=== PATIENT | female | born 1965 | race Caucasian/White ===

== ENCOUNTER 2018-07-11 20:24 | Emergency (ER) | payer MEDICARE, SELFPAY ==
[2018-07-11 20:25] VITALS: BP 97/65; PULSE 69; RESP 14; TEMP 36.7; O2SAT 96; BMI 21.2
--- NOTE | 2018-07-11 20:40 | EKG12_ITS ---
Test Reason : CP Blood Pressure : / mmHG Vent. Rate : 076 BPM Atrial Rate : 076 BPM P-R Int : 124 ms QRS Dur : 072 ms QT Int : 398 ms P-R-T Axes : 076 063 064 degrees QTc Int : 447 ms Normal sinus rhythm Normal ECG Confirmed by KEVIN RODRIGUES, RODRIGUEZ ([id number]), research editor OPAL THOMPSON ([id number]) on 07/14/2018 2:21:02 PM Referred By: GIORGIO/ELKIN Confirmed By:RODRIGUEZ BROWN MD
--- NOTE | 2018-07-11 20:41 | ED.RN ---
NO OLD EKGS IN MUSE
--- NOTE | 2018-07-11 20:46 | ED.RN ---
daughter dropped patient and her bag off at the er. she stated the patient was mad at her. gave her phone number for a contact. # is [phone]
[2018-07-11 20:48] VITALS: O2SAT 98
--- NOTE | 2018-07-11 21:00 | RAD_ITS ---
STUDY: X-RAY CHEST REASON FOR EXAM: Female, 52 years old. Chest pain TECHNIQUE: Frontal view of the chest COMPARISON: None. FINDINGS: The lungs are clear. There are no pleural effusions. There is no pneumothorax. The heart is normal in size. The visualized osseous structures are within normal limits. RAD/Chest 1 View (Portable) IMPRESSION: No acute thoracic pathology. Electronically Signed: Nikos Lindquist, at 21:13 EST Tel , Service support ,
[2018-07-11 21:08] VITALS: BP 93/65; PULSE 80; RESP 14; O2SAT 96
--- NOTE | 2018-07-11 22:00 | ED.RN ---
LAB WAS CALLED TO DRAW BLOOD DUE TO UNABLE TO ESTABLISH AN IV. LAB WAS ABLE TO OBTAIN BLOOD SAMPLE.
[2018-07-11 22:18] LABS: Absolute Lymphocyte Count 2.27 X10^3/ul (0.83-4.51); Absolute Neutrophil Count 6.9 X10^3/uL (2.0-7.7); Basophil# 0.03 X10^3/uL; Basophil% 0.3 % (0-1); Eosinophil# 0.23 X10^3/uL; Eosinophils% 2.3 % (0-5); Hematocrit 41.7 % (37-47); Lymphocyte # 2.27 X10^3/ul (4.0); Lymphocyte % 22.8 % (19-41); Mean Corp Hgb Conc 33.6 g/gl (32-36); Mean Corpuscular Hgb 31.4 pg (27.0-32.0); Mean Corpuscular Volume 93.5 fL (81-99); Mean Platelet Vol. 9.3 fl (6.2-12.0); Monocyte# 0.52 X10^3/uL; Monocyte% 5.2 % (0-10); Neutrophil # 6.88 X10^3/uL (2.7-7.7); Neutrophil % 69.2 % (47-70); Platelet Count 231 K/mm3 (150-450); RBC Distribution Width CV 12.5 % (11.6-14.6); RBC Distribution Width SD 42.2 fl (35.1-43.9); Red Blood Count 4.46 M/mm3 (4.2-5.4)
[2018-07-11 22:20] LABS: POSITIVE COUNT NO; POSITIVE DIFFERENTIAL NO; POSITIVE MORPHOLOGY NO
[2018-07-11 22:26] LABS: International Normalized Ratio 1.2; Prothrombin Time (Protime)PT. 15.1 SECONDS (11.7-14.9)
[2018-07-11 22:39] VITALS: PULSE 78; RESP 14; O2SAT 95
[2018-07-11 22:41] LABS: Anion Gap 8 (5-15); BUN 11 mg/dL (7-18); BUN/Creat Ratio 14.8 RATIO (10-20); Calcium,Total 8.6 mg/dL (8.5-10.1); Chloride 104 mmol/L (98-107); Creatinine, Serum 0.74 mg/dL (0.55-1.02); EST Glomerular Filtration Rate 86 mL/min (>60); Est Glom Filt Rate - Afr Amer 105 mL/min (>60); Estimated Creatinine Clearance 75.92 ml/min; Glucose 117 mg/dL (74-106); Potassium 3.6 mmol/L (3.5-5.1); Sodium Level 137 mmol/L (136-145)
--- NOTE | 2018-07-11 22:55 | ED.VISSUMM ---
- ER Visit Summary Date of Service: 07/11/18 Chief Complaint: Left chest wall pain History of Present Illness: The patient is a 52 F who states that one week ago when she woke up she had pain underneath her left breast. The pain is worse with moving and now radiates along the ribs into her back. She states that it is gotten worse. She states that she has decided to move from the [facility] down to the [facility]. She states she is doing so to help her daughter. She tells me that her daughter told her to go to the emergency department tonight and that she did not she would never see her children again. She is on Pradaxa for prior pulmonary embolism. She states that she has not missed any doses of Pradaxa. The patient also reportedly has Percocet at home. She is a smoker. She denies any rashes. No trauma. She reports that her blood pressure is typically in the 90s Physical Examination: Afebrile vital signs are stable Gen: Well-nourished well-developed Head: Normocephalic atraumatic Eyes: Perrl EOMI ENT: TMs clear no rhinorrhea moist mucous membranes Neck: Supple no lymphadenopathy no JVD nontender CVS: Regular rate rhythm no murmurs normal S1-S2 Respiratory: No distress clear to auscultation bilaterally patient has reproducible pain just inferior to the left breast along the ribs into the back. There is no obvious deformity. There is no rashes. Abdomen: Soft nontender nondistended normal bowel sounds no masses Back: Nontender Extremity: Nontender no edema Skin: Normal color no rash Neuro: alert orientated ?3 CN II-XII intact normal strength sensation reflexes gait cerebellar Psych: Normal affect normal mood Test Results: EKG shows a normal sinus rhythm at a rate of 76. CBC chemistries showed glucose 117. Troponin less than 0.015 Emergency Department Course and Treatment: Patient received OxyIR for pain. She will be discharged home with follow-up with her doctor. I suspect that this is chest wall related. Impression: 1. Chest wall pain This note was generated with Lumora[employer] software. It may contain incorrect words, spelling, and punctuation that were not noted in review of the chart prior to signing ED Disposition - Plan for ED Patient: Disposition: Home or Assisted Living Chief Complaint: Syncope Instructions: ED Chest Pain Costochondritis Additional Instructions: Please arrange follow-up with your family doctor.
--- NOTE | 2018-07-11 22:58 | ED.DCSUM_ITS ---
- ER Visit Summary Date of Service: 07/11/18 Chief Complaint: Left chest wall pain History of Present Illness: The patient is a 52 F who states that one week ago when she woke up she had pain underneath her left breast. The pain is worse with moving and now radiates along the ribs into her back. She states that it is gotten worse. She states that she has decided to move from the [facility] down to the [facility]. She states she is doing so to help her daughter. She tells me that her daughter told her to go to the emergency department tonight and that she did not she would never see her children again. She is on Pradaxa for prior pulmonary embolism. She states that she has not missed any doses of Pradaxa. The patient also reportedly has Percocet at home. She is a smoker. She denies any rashes. No trauma. She reports that her blood pressure is typically in the 90s Physical Examination: Afebrile vital signs are stable Gen: Well-nourished well-developed Head: Normocephalic atraumatic Eyes: Perrl EOMI ENT: TMs clear no rhinorrhea moist mucous membranes Neck: Supple no lymphadenopathy no JVD nontender CVS: Regular rate rhythm no murmurs normal S1-S2 Respiratory: No distress clear to auscultation bilaterally patient has reproducible pain just inferior to the left breast along the ribs into the back. There is no obvious deformity. There is no rashes. Abdomen: Soft nontender nondistended normal bowel sounds no masses Back: Nontender Extremity: Nontender no edema Skin: Normal color no rash Neuro: alert orientated ?3 CN II-XII intact normal strength sensation reflexes gait cerebellar Psych: Normal affect normal mood Test Results: EKG shows a normal sinus rhythm at a rate of 76. CBC chemistries showed glucose 117. Troponin less than 0.015 Emergency Department Course and Treatment: Patient received OxyIR for pain. She will be discharged home with follow-up with her doctor. I suspect that this is chest wall related. Impression: 1. Chest wall pain This note was generated with [employer]ation software. It may contain incorrect words, spelling, and punctuation that were not noted in review of the chart prior to signing ED Disposition - Plan for ED Patient: Disposition: Home or Assisted Living Chief Complaint: Syncope Instructions: ED Chest Pain Costochondritis Additional Instructions: Please arrange follow-up with your family doctor.
[2018-07-11] MEDS: oxyCODONE 5 MG Tablet 10 MG PO (23:24)
[2018-07-11 23:30] VITALS: BP 91/56; PULSE 73; RESP 14; O2SAT 96
--- OUTSIDE RECORDS SUMMARY | 2018-09-06 10:29 | XMS RPT_ITS ---
:1965 Author Organization [facility] Care Team Providers Name Role Phone BEST PARKER Attending Unavailable LIZA WOODALL Admitting Unavailable LIZA WOODALL Attending Unavailable AUSTIN PAGE Consulting Unavailable KOBEMANA Admitting Unavailable KOBEMANA CORONADO Attending Unavailable EULALIA VO Attending Unavailable MUSHKAT CONOMY, CINDY H Admitting Unavailable MUSHKAT CONOMY, CINDY H Attending Unavailable CADESKY, RYAN Admitting Unavailable CADESKY, RYAN Attending Unavailable BEST PARKER Attending Unavailable Mykel Boogie Attending Unavailable Primay Care Physicia, No Primary Care Unavailable Primay Care Physicia, No Primary Care Unavailable Mykel Jiménez Attending Unavailable PROVIDER, UNKNOWN Admitting Unavailable PROVIDER, UNKNOWN Attending Unavailable PROVIDER, UNKNOWN Admitting Unavailable JS QUEVEDO Attending Unavailable CONSULT, IP PSYCHIATRIC ADULT Consulting Unavailable PROVIDER, UNKNOWN Admitting Unavailable BRITTANY MARCIAL Attending Unavailable PROVIDER, UNKNOWN Admitting Unavailable PROVIDER, UNKNOWN Attending Unavailable PCP, OTHER Primary Care Unavailable TY DASILVA Attending Unavailable CADESKY, RYAN Attending Unavailable CADESKY, RYAN Attending Unavailable CADESKY, RYAN Attending Unavailable CADESKY, RYAN Attending Unavailable RAYMOND CORNEJO Attending Unavailable CADESKY, RYAN Referring Unavailable CADESKY, RYAN Attending Unavailable MUSHKAT CONOMY, CINDY H Attending Unavailable CADESKY, RYAN Attending Unavailable CADESKY, RYAN Attending Unavailable MELANIE WEBSTER Attending Unavailable ORTIZ, LILO Referring Unavailable YARIELDENAE NARANJO (HR BUSINESS PARTNER CONSULTANT) Referring Unavailable CADESKY, RYAN Attending Unavailable CADESKY, RYAN Attending Unavailable ORTIZ, LILO Attending Unavailable CADESKY, RYAN Referring Unavailable ORTIZ, LILO Referring Unavailable THADDEUS PRUITT (PA) Attending Unavailable ORTIZ, LILO Referring Unavailable CASTELLANOS, AMARI R Admitting Unavailable ORTIZ, LILO Referring Unavailable NEME MERCANTE, DARLEEN Attending Unavailable CASTELLANOS, AMARI R Admitting Unavailable NEME MERCANTE, DARLEEN Attending Unavailable NEME MERCANTE, DARLEEN Referring Unavailable CASTELLANOS, AMARI R Admitting Unavailable CASTELLANOS, AMARI R Attending Unavailable ZEKE BELLO Referring Unavailable Dr. Farooq Bolivar Attending Unavailable *SELF, REFERRED Referring Unavailable Podl, Tod Americo Primary Care Unavailable Podl, Tod Americo Primary Care Unavailable Sugey, Dr. Flakito Goodman Admitting Unavailable Gilsonca, Dr. Flakito Goodman Attending Unavailable Gilsonca, Dr. Flakito Goodman Referring Unavailable Podl, Tod Americo Primary Care Unavailable Bertrand, Dr. Greyson Quezada Admitting Unavailable Bertrand, Dr. Greyson Quezada Attending Unavailable Bertrand, Dr. Greyson Quezada Referring Unavailable PROBLEMS PROBLEMS DATE TYPE CONDITION / CODE ATTENDING STATUS SOURCE 07/03/2018 Active Chronic pain CASTELLANOS, AMARI R [facility] syndrome / [facility] G89.4(ICD-10) Repository 06/05/2015 Active Mental disorder, CASTELLANOS, AMARI R [facility] not otherwise [facility] specified / Repository F99(ICD-10) 07/23/2018 Active Embolism and CASTELLANOS, AMARI R [facility] thrombosis of [facility] unspecified artery Repository / I74.9(ICD-10) 07/23/2018 Active Hypokalemia / CASTELLANOS, AMARI R [facility] E87.6(ICD-10) [facility] Repository 07/22/2018 Admitting Unspecified BROWN, Active [facility] Diagnosis abdominal pain / [facility] R10.9(ICD-10) Repository 07/22/2018 Final Diagnosis Syncope and BROWN, Active [facility] (Discharge) collapse / [facility] R55(ICD-10) Repository 07/22/2018 Final Diagnosis Hypocalcemia / BROWN, Active [facility] (Discharge) E83.51(ICD-10) [facility] Repository 07/22/2018 Final Diagnosis Hypokalemia / BROWN, Active [facility] (Discharge) E87.6(ICD-10) [facility] Repository 07/22/2018 Final Diagnosis Essential (primary) BROWN, Active [facility] (Discharge) hypertension / [facility] I10(ICD-10) Repository 07/22/2018 Final Diagnosis Diarrhea, BROWN, Active [facility] (Discharge) unspecified / [facility] R19.7(ICD-10) Repository 07/22/2018 Final Diagnosis Complex regional BROWN, Active [facility] (Discharge) pain syndrome I, [facility] unspecified / Repository G90.50(ICD-10) 07/22/2018 Final Diagnosis Chronic pain BROWN, Active [facility] (Discharge) syndrome / [facility] G89.4(ICD-10) Repository 07/22/2018 Final Diagnosis Major depressive BROWN, Active [facility] (Discharge) disorder, single [facility] episode, Repository unspecified / F32.9(ICD-10) 07/22/2018 Final Diagnosis Other epilepsy, not BROWN, Active [facility] (Discharge) intractable, [facility] without status Repository epilepticus / G40.802(ICD-10) 07/22/2018 Final Diagnosis Nicotine BROWN, Active [facility] (Discharge) dependence, [facility] cigarettes, Repository uncomplicated / F17.210(ICD-10) 07/22/2018 Final Diagnosis Prsnl hx of TIA BROWN, Active [facility] (Discharge) (TIA), 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[facility] 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 Repository deficits / Z86.73(ICD-10) 07/22/2018 Final Diagnosis Personal history of BROWN, Active [facility] (Discharge) urinary (tract) [facility] infections / Repository Z87.440(ICD-10) 07/22/2018 Final Diagnosis Personal history of BROWN, Active [facility] (Discharge) methicillin resis [facility] staph infection / Repository Z86.14(ICD-10) 07/22/2018 Final Diagnosis Personal history of BROWN, Active [facility] (Discharge) pulmonary embolism [facility] / Z86.711(ICD-10) Repository 07/22/2018 Final Diagnosis [facility] (current) BROWN, Active [facility] (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 of [facility] anticoagulants / Repository Z79.01(ICD-10) 07/22/2018 Final Diagnosis Other nursing home BROWN, Active [facility] (Discharge) (current) drug [facility] therapy / Repository Z79.899(ICD-10) 07/22/2018 Final Diagnosis [facility] (current) BROWN, Active [facility] (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 of opiate [facility] analgesic / Repository Z79.891(ICD-10) 07/22/2018 Final Diagnosis Personal history of BROWN, Active [facility] (Discharge) other diseases of [facility] the digestive Repository system / Z87.19(ICD-10) 07/22/2018 Final Diagnosis Family hx of ischem BROWN, Active [facility] (Discharge) heart dis and oth [facility] dis of the circ sys Repository / Z82.49(ICD-10) 07/22/2018 Final Diagnosis Family history of BROWN, Active [facility] (Discharge) diabetes mellitus / [facility] Z83.3(ICD-10) Repository 07/22/2018 Final Diagnosis Family history of BROWN, Active [facility] (Discharge) malignant neoplasm [facility] of testis / Repository Z80.43(ICD-10) 07/22/2018 Final Diagnosis Family history of BROWN, Active [facility] (Discharge) malignant neoplasm [facility] of kidney / Repository Z80.51(ICD-10) 07/22/2018 Revised Unspecified BROWN, Active [facility] Diagnosis abdominal pain / [facility] R10.9(ICD-10) Repository 06/29/2018 Active Unspecified NEME MERCANTE, Active [facility] convulsions / DARLEEN [facility] R56.9(ICD-10) Repository 05/24/2018 Active Other specified NA Active [facility] symptoms and signs [facility] involving the Repository circulatory and respiratory systems / R09.89(ICD-10) 03/28/[address] Lolita Bertrand [place] disorder, single [facility] episode, Repository unspecified / F32.9(ICD-10) 03/28/2018 Unknown Epilepsy, unsp, not Bertrand, Dr. Lolita Vidal intractable, [facility] without status Repository epilepticus / G40.909(ICD-10) 03/28/2018 Unknown Fibromyalgia / Bertrand, Dr. Mchugh [place] M79.7(ICD-10) [facility] Repository 03/28/2018 Unknown Personal history of Dr. Lolita Bertrand [facility] pulmonary embolism [facility] / Z86.711(ICD-10) Repository 03/28/2018 Unknown Prsnl hx of TIA Dr. Lolita Bertrand [facility] (TIA), and cereb [facility] 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 Repository deficits / Z86.73(ICD-10) 03/28/2018 Unknown Acquired absence of Dr. Lolita Bertrand [place] other specified [facility] parts of digestive Repository tract / Z90.49(ICD-10) 03/28/2018 Unknown Personal history of Dr. Lolita Bertrand [place] other venous [facility] thrombosis and Repository embolism / Z86.718(ICD-10) 03/28/2018 Admitting Syncope and Bertrand, Dr. Mchugh [place] diagnosis collapse / [facility] R55(ICD-10) Repository 03/28/2018 Unknown Syncope and Bertrand, Dr. Lolita Vidal collapse / [facility] R55(ICD-10) Repository 03/28/2018 Unknown Opioid dependence, Dr. Lolita Bertrand [facility] uncomplicated / [facility] F11.20(ICD-10) Repository 03/28/2018 Unknown Complex regional Bertrand, Active [facility] pain syndrome I of [facility] other specified Repository site / G90.59(ICD-10) 03/28/2018 Unknown Dorsalgia, Bertrand, Active [facility] unspecified / [facility] M54.9(ICD-10) Repository 03/28/2018 Unknown Nicotine Bertrand, Active [facility] dependence, [facility] unspecified, Repository uncomplicated / F17.200(ICD-10) 03/28/2018 Unknown Anxiety disorder, Bertrand, Active [facility] unspecified / [facility] F41.9(ICD-10) Repository 03/28/2018 Unknown Chronic obstructive Bertrand, Active [facility] pulmonary disease, [facility] unspecified / Repository J44.9(ICD-10) 03/28/2018 Unknown Unspecified Bertrand, Active [facility] abdominal pain / [facility] R10.9(ICD-10) Repository 03/28/2018 Unknown Diplopia / Bertrand, Active [facility] H53.2(ICD-10) [facility] Repository 03/28/2018 Unknown Unspecified Bertrand, Active [facility] osteoarthritis, [facility] unspecified site / Repository M19.90(ICD-10) 03/28/2018 Unknown Personal history of Bertrand, [facility]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 / Repository Z86.74(ICD-10) 03/28/2018 Unknown Systemic Bertrand, 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, Repository unspecified / M35.9(ICD-10) 09/16/2017 Active Delusional MILK, BEST Active [facility] disorders / ISABELLA [facility] F22(ICD-10) Repository 03/24/2018 Active Unspecified MILK, BEST Active [facility] abdominal pain / ISABELLA Other [facility] R10.9(ICD-10) Repository 03/24/2018 Active Diplopia / MILK, BEST Active [facility] H53.2(ICD-10) ISABELLA Other [facility] Repository 03/24/2018 Active Transient MILK, BEST Active [facility] alteration of ISABELLA Other [facility] awareness / Repository R40.4(ICD-10) 03/24/2018 Active Emphysema, MILK, BEST Active [facility] unspecified / ISABELLA Other [facility] J43.9(ICD-10) Repository 12/28/2017 Admitting Ileus, unspecified Donca, Dr. Lolita Vidal diagnosis / K56.7(ICD-10) [facility] Repository 12/28/2017 Unknown Ileus, unspecified Donca, Dr. 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 Mchugh [place] pulmonary disease w [facility] (acute) Repository exacerbation / J44.1(ICD-10) 12/28/2017 Unknown Other chronic pain Sugey, Dr. Lolita Vidal / G89.29(ICD-10) [facility] Repository 12/28/2017 Unknown Migraine, unsp, not Donca, Dr. Lolita Vidal intractable, [facility] without status Repository migrainosus / G43.909(ICD-10) 12/28/2017 Unknown Post-traumatic Sugey, Dr. Mchugh [place] stress disorder, [facility] unspecified / Repository F43.10(ICD-10) 12/28/2017 Unknown Oth disrd involving Sugey, Dr. Lolita Vidal the immune [facility] mechanism, NEC / Repository D89.89(ICD-10) 12/28/2017 Unknown Hypokalemia / Donca, Active [facility] E87.6(ICD-10) [facility] Repository 12/28/2017 Unknown Other specified Donca, Dr. Mchugh [place] anxiety disorders / [facility] F41.8(ICD-10) Repository 12/28/2017 Unknown Anorexia / Donca, Dr. Lolita Vidal R63.0(ICD-10) [facility] Repository 12/28/2017 Unknown Nicotine Donsuzette, Dr. Lolita Vidal dependence, [facility] cigarettes, Repository uncomplicated / F17.210(ICD-10) 12/28/2017 Unknown Insomnia, Dr. Lolita Mayes unspecified / [facility] G47.00(ICD-10) Repository 12/28/2017 Unknown Adverse effect of Sugey, Dr. Lolita Vidal unspecified [facility] narcotics, initial Repository encounter / T40.605A(ICD-10) 12/28/2017 Unknown Other coma, without Dr. Lolita Mayes [place], or w/part [facility] score, 24+hrs / Repository R40.2444(ICD-10) 12/28/[address] Lolita Mayes disorder, single [facility] episode, in full Repository remission / F32.5(ICD-10) 12/28/2017 Unknown Repeated falls / Sugey, Dr. Lolita Vidal R29.6(ICD-10) [facility] Repository 12/28/2017 Unknown Adverse effect of Dr. Lolita Mayes other synthetic [facility] narcotics, init Repository encntr / T40.4X5A(ICD-10) 12/28/2017 Unknown Adverse effect of Sugey, Dr. Lolita Vidal other opioids, [facility] initial encounter / Repository T40.2X5A(ICD-10) 12/28/2017 Unknown Patient room in Dr. Lolita Mayes hospital as place / [facility] Y92.230(ICD-10) Repository 12/28/[address] Unknown [address] home [address] 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 Lolita Mayes (BMI) 22.0-22.9, [facility] adult / Repository Z68.22(ICD-10) 12/28/2017 Unknown Presence of other Dr. Lolita Mayes vascular implants [facility] and grafts / Repository Z95.828(ICD-10) 12/28/2017 Unknown [address]. 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 Sugey [facility] use of [facility] anticoagulants / Repository Z79.01(ICD-10) 11/23/2017 Active Generalized GILDA, Active [facility] Other [facility] nodes / Repository R59.1(ICD-10) 11/23/2017 Active Insomnia, GILDA, Active [facility] unspecified / [facility] Other [facility] G47.00(ICD-10) Repository 11/18/2017 Active Unknown / KOBE, MANA Active [facility] UNK(Unknown) Other [facility] Repository 11/12/2017 Active Epilepsy, OLASOKAN, Active [facility] unspecified, not OLAPEJU Other [facility] intractable, Repository without status epilepticus / G40.909(ICD-10) 11/12/2017 Active Opioid dependence, OLASOKAN, Active [facility] uncomplicated / OLAPEJU Other [facility] F11.20(ICD-10) Repository 11/12/2017 Active Chronic embolism OLASOKAN, 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 / Repository I82.512(ICD-10) 11/12/2017 Active Other psychoactive OLASOKAN, Active [facility] substance OLAPEJU Other [facility] dependence, Repository uncomplicated / F19.20(ICD-10) 11/12/2017 Active Orthostatic OLASOKAN, Active [facility] hypotension / OLAPEJU Other [facility] I95.1(ICD-10) Repository 11/12/2017 Active Syncope and OLASOKAN, Active [facility] collapse / OLAPEJU Other [facility] R55(ICD-10) Repository 11/12/2017 Active Diarrhea, OLASOKAN, Active [facility] unspecified / OLAPEJU Other [facility] R19.7(ICD-10) Repository 11/12/2017 Active Major depressive OLASOKAN, Active [facility] disorder, OLAPEJU Other [facility] recurrent, moderate Repository / F33.1(ICD-10) 11/12/2017 Active Opioid dependence OLASOKAN, Active [facility] with withdrawal / OLAPEJU Other [facility] F11.23(ICD-10) Repository 10/11/2017 Active Other chronic pain Unknown Active [facility] / G89.29(ICD-10) System Repository 09/05/2017 Active Other symptoms and MILKBEST Active [facility] signs involving ISABELLA Other [facility] emotional state / Repository R45.89(ICD-10) 09/05/2017 Active Poisoning by MILK, BEST Active [facility] unspecified drugs, ISABELLA Other [facility] medicaments and Repository biological substances, undetermined, initial encounter / T50.904A(ICD-10) PROCEDURES PROCEDURES DATE CODE DESCRIPTION STATUS SOURCE 11/10/2017 09472(C4) TOXICOLOGY SCREEN, Completed [facility] UNCONFIRMED System Repository 11/10/2017 94008(C4) EKG 12 LEAD - Completed [facility] PERFORM System Repository 11/09/2017 26000(C4) BASIC METABOLIC Completed [facility] PANEL System Repository 11/09/2017 40072(C4) MAGNESIUM Completed [facility] Repository 11/09/2017 07083(C4) COMPLETE BLOOD COUNT Completed [facility] Repository 11/09/2017 58490(C4) URINALYSIS COMP Completed [facility] System Repository 11/09/2017 98549(C4) TOXICOLOGY SCREEN, Completed [facility] UNCONFIRMED System Repository 11/09/2017 84584(C4) HCG URINE Completed [facility] Repository 11/09/2017 28919(C4) ETHANOL, SERUM Completed [facility] Repository 11/09/2017 960253104(C4) URINALYSIS - Completed [facility] CHEMISTRY System Repository ([facility]) 11/09/2017 FKQ662(C4) PROVIDE CONSTANT Completed [facility] SUPERVISION PSYCH System Repository 11/09/2017 ORUDQ198(C4) IP PSYCHIATRIC ADULT Completed [facility] CONSULT System Repository 11/09/2017 OGY866(C4) RECHECK VITAL SIGNS Completed [facility] Repository 11/09/2017 76612(C4) EXTRA URINE Completed [facility] Repository 10/11/2017 ED103(C4) DISCHARGE PATIENT Completed [facility] Repository RESULTS RESULTS PROGRESS Observed: 07/28/2018 Status: COMPLETED Source: [place] 9:55 AM [facility] [place] REPOSITORY HNO ID: [id number] Author: Steven Haro Pharmd Service: (none) Author Type: Pharmacist Type: Progress Notes Filed: 07/28/2018 9:57 AM Note Text: TRANSITION CARE MANAGEMENT (TCM) PHARMACY FOLLOW-UP Provider Action/FYI: ? Attempt made to contact pt's daughter, Lindsey, on listed cell phone. Message on cell stated unable to take call at this time. Follow up call with patient post discharge, unable to reach pt's daughter (Lindsey). See post-discharge summary from contact on 07/27/18. Medication List Medication Directions Comments Action/Plan Cetirizine (ZYRTEC) 10 mg cap Take 1 capsule by mouth once daily. clonazePAM (KLONOPIN) 0.5 mg tablet Take 1 tablet by mouth three times daily as needed for up to 90 days. Discontinued: 07/23/2018 9:36 AM dabigatran etexilate (PRADAXA) 150 mg cap Take 1 capsule by mouth twice daily. dabigatran etexilate (PRADAXA) 150 mg cap Take 1 capsule by mouth twice daily. dicyclomine (BENTYL) 20 mg tablet Take 1 tablet by mouth four times daily. Patient not taking: Reported on 07/27/2018 ergocalciferol, vitamin D2, (DRISDOL) 50,000 unit capsule Take 1 capsule by mouth every Tuesday. Indications: VITAMIN D DEFICIENCY fluticasone-salmeterol (ADVAIR DISKUS) 500-50 mcg/dose dsdv Inhale 1 Puff as instructed twice daily. RINSE AND GARGLE MOUTH WITH WATER AFTER EACH USE. gabapentin (NEURONTIN) 300 mg capsule take 3 capsules by mouth three times a day Discontinued: 07/27/2018 9:33 AM Discontinued: 07/26/2018 9:13 AM lacosamide (VIMPAT) 100 mg tab Take 1 tablet by mouth twice daily for 30 days. Discontinued: 07/23/2018 9:45 AM loperamide (IMODIUM) 2 mg cap(s) Take 1 capsule by mouth as needed for Diarrhea. omeprazole (PRILOSEC) 20 mg capsule Take 1 capsule by mouth once daily. oxyCODONE-acetaminophen (PERCOCET) 5-325 mg tablet 1 po q4h prn breakthrough pain (MAXIMUM 5 pills/day) Earliest Fill Date: 08/04/18 oxyCODONE-acetaminophen (PERCOCET) 5-325 mg tablet Take 1 tablet by mouth every 6 hours as needed for Pain for up to 10 doses. Earliest Fill Date: 07/26/18 Discontinued: 07/27/2018 6:42 PM potassium chloride 20 mEq TbER Take 1 tablet by mouth every Tuesday,Tuesday,Tuesday. promethazine (PHENERGAN) 25 mg tablet Take 1 tablet by mouth every 8 hours as needed. spironolactone (ALDACTONE) 25 mg tablet Take 1 tablet by mouth once daily as needed. Takes as needed venlafaxine ER (EFFEXOR XR) 150 mg 24 hr capsule Take 2 capsules by mouth once daily. venlafaxine ER (EFFEXOR XR) 150 mg 24 hr capsule Take 2 capsules by mouth once daily. Follow Up Plan: Will follow up in 1-2 weeks Appointments for Next 60 Days Date Time Provider Location Dept Phone 08/09/2018 11:00 AM RYAN CASTANO [facility] [phone] 08/23/2018 1:30 PM REGISTRATION CINDY Iyer/Shon Haines [phone] 08/23/2018 1:45 PM RAGINI GUY/Shon Haines [phone] 08/28/2018 11:30 AM [id number] MAIN CARD Shireen Venecia [phone] 08/28/2018 12:00 PM [facility]SE [facility] Shireen HAINES [phone] 08/28/2018 12:30 PM ARIE MOREL CARD [facility] [phone] 08/28/2018 4:20 PM RYAN CASTANO [facility] [phone] Time spent on patient: 10-20 minutes Steevn Haro PharmD July 28, 2018 9:56 AM RAQUEL Observed: 07/28/2018 Status: COMPLETED Source: [place] 12:00 AM [facility] REPOSITORY Patient Outreach (PHRXRF) EDGARDO DENSON ([id number]) 1965 F Date Time Provider Department 07/28/18 STEVEN HARO PHARMD During your visit today, we recorded the following information about you: Steven Haro, PharmD 07/28/2018 9:57 AM Signed TRANSITION CARE MANAGEMENT (TCM) PHARMACY FOLLOW-UP Provider Action/FYI: ? Attempt made to contact pt's daughter, Lindsey, on listed cell phone. Message on cell stated unable to take call at this time. Follow up call with patient post discharge, unable to reach pt's daughter (Lindsey). See post-discharge summary from contact on 07/27/18. Medication List Medication Directions Comments Action/Plan Cetirizine (ZYRTEC) 10 mg cap Take 1 capsule by mouth once daily. clonazePAM (KLONOPIN) 0.5 mg tablet Take 1 tablet by mouth three times daily as needed for up to 90 days. Discontinued: 07/23/2018 9:36 AM dabigatran etexilate (PRADAXA) 150 mg cap Take 1 capsule by mouth twice daily. dabigatran etexilate (PRADAXA) 150 mg cap Take 1 capsule by mouth twice daily. dicyclomine (BENTYL) 20 mg tablet Take 1 tablet by mouth four times daily. Patient not taking: Reported on 07/27/2018 ergocalciferol, vitamin D2, (DRISDOL) 50,000 unit capsule Take 1 capsule by mouth every Tuesday. Indications: VITAMIN D DEFICIENCY fluticasone-salmeterol (ADVAIR DISKUS) 500-50 mcg/dose dsdv Inhale 1 Puff as instructed twice daily. RINSE AND GARGLE MOUTH WITH WATER AFTER EACH USE. gabapentin (NEURONTIN) 300 mg capsule take 3 capsules by mouth three times a day Discontinued: 07/27/2018 9:33 AM Discontinued: 07/26/2018 9:13 AM lacosamide (VIMPAT) 100 mg tab Take 1 tablet by mouth twice daily for 30 days. Discontinued: 07/23/2018 9:45 AM loperamide (IMODIUM) 2 mg cap(s) Take 1 capsule by mouth as needed for Diarrhea. omeprazole (PRILOSEC) 20 mg capsule Take 1 capsule by mouth once daily. oxyCODONE-acetaminophen (PERCOCET) 5-325 mg tablet 1 po q4h prn breakthrough pain (MAXIMUM 5 pills/day) Earliest Fill Date: 08/04/18 oxyCODONE-acetaminophen (PERCOCET) 5-325 mg tablet Take 1 tablet by mouth every 6 hours as needed for Pain for up to 10 doses. Earliest Fill Date: 07/26/18 Discontinued: 07/27/2018 6:42 PM potassium chloride 20 mEq TbER Take 1 tablet by mouth every Tuesday,Tuesday,Tuesday. promethazine (PHENERGAN) 25 mg tablet Take 1 tablet by mouth every 8 hours as needed. spironolactone (ALDACTONE) 25 mg tablet Take 1 tablet by mouth once daily as needed. Takes as needed venlafaxine ER (EFFEXOR XR) 150 mg 24 hr capsule Take 2 capsules by mouth once daily. venlafaxine ER (EFFEXOR XR) 150 mg 24 hr capsule Take 2 capsules by mouth once daily. Follow Up Plan: Will follow up in 1-2 weeks Appointments for Next 60 Days Date Time Provider Location Dept Phone 08/09/2018 11:00 AM RYAN CASTANO [facility] [phone] 08/23/2018 1:30 PM REGISTRATION VASM J/S [facility] [phone] 08/23/2018 1:45 PM RAGINI GUY VASM J/S [facility] [phone] 08/28/2018 11:30 AM [id number] MAIN CARD J [facility] [phone] 08/28/2018 12:00 PM SYNCOPE OPD NURSE CARD Shireen [facility] [phone] 08/28/2018 12:30 PM ARIE MOREL CARD J [facility] [phone] 08/28/2018 4:20 PM RYAN CASTANO [facility] [phone] Time spent on patient: 10-20 minutes Steven Haro, Vaughn July 28, 2018 9:56 AM Allergies As of Date: 07/28/2018 Noted Allergy Reaction CELLACEFATE 01/07/2006 7 - Swelling DEPAKOTE (DIVALPROEX SODIUM) 01/07/2006 8 - GI Upset DILANTIN (PHENYTOIN SODIUM EXTEND*06/03/2015 8 - GI Upset DIVALPROEX 14 - Other: See Comments Comments: Abdominal pain FISH CONTAINING PRODUCTS 05/13/2015 16 - Unknown PENICILLIN 7 - Swelling PENICILLIN G 01/07/2006 8 - GI Upset Comments: tolerates zosyn . sdm. 03/2007 TOLERATES KEFLEX 3-31-11 SHRIMP 05/13/2015 16 - Unknown SULFA (SULFONAMIDE ANTIBIOTICS) 05/17/2007 8 - GI Upset Comments: Gastritis SULFAMETHOXAZOLE-TRIMETHOPRIM 16 - Unknown TOPAMAX (TOPIRAMATE) 05/21/2009 1 - Mental Status Change HALDOL (HALOPERIDOL) 02/03/2008 1 - Mental Status Change 3 - Cough 8 - GI Upset 9 - Itching Date Reviewed: 07/26/2018 Reviewed by: Marielena OliverosRn) ABIODUN Mcnair - Fully Assessed Reason for Visit: Transition Of Care [4074] Cmt: Pharmacy TCM Follow-Up Prescriptions as of 07/28/2018 Sig: CETIRIZINE 10 MG CAPSULE Take 1 capsule by mouth once * CLONAZEPAM 0.5 MG TABLET Take 1 tablet by mouth three * DABIGATRAN ETEXILATE 150 MG C* Take 1 capsule by mouth twice* DABIGATRAN ETEXILATE 150 MG C* Take 1 capsule by mouth twice* DICYCLOMINE 20 MG TABLET Take 1 tablet by mouth four t* Patient not taking: Reported on 07/27/2018 ERGOCALCIFEROL (VITAMIN D2) 5* Take 1 capsule by mouth every* FLUTICASONE 500 MCG-SALMETERO* Inhale 1 Puff as instructed t* GABAPENTIN 300 MG CAPSULE take 3 capsules by mouth thre* LACOSAMIDE 100 MG TABLET Take 1 tablet by mouth twice * LOPERAMIDE 2 MG CAPSULE Take 1 capsule by mouth as ne* OMEPRAZOLE 20 MG CAPSULE,VENESSA* Take 1 capsule by mouth once * OXYCODONE-ACETAMINOPHEN 5 MG-* 1 po q4h prn breakthrough anthony* OXYCODONE-ACETAMINOPHEN 5 MG-* Take 1 tablet by mouth every * POTASSIUM CHLORIDE ER 20 MEQ * Take 1 tablet by mouth every * PROMETHAZINE 25 MG TABLET Take 1 tablet by mouth every * SPIRONOLACTONE 25 MG TABLET Take 1 tablet by mouth once d* VENLAFAXINE ER 150 MG CAPSULE* Take 2 capsules by mouth once* VENLAFAXINE ER 150 MG CAPSULE* Take 2 capsules by mouth once* Problem List As Of Date 07/28/2018 Noted Resolved Cellulitis and abscess of leg, except foot [L03*INVALID FOR*02/25/2017 Methicillin susceptible Staphylococcus aureus i*INVALID FOR*02/25/2017 Pseudomonas infection in conditions classified *INVALID FOR*02/25/2017 Edema [R60.9] INVALID FOR*08/31/2017 Reflex sympathetic dystrophy of lower limb [G90*INVALID FOR* Psoas muscle abscess (HCC) [K68.12] INVALID FOR*02/25/2017 More... Candidiasis of unspecified site [B37.9] INVALID FOR*08/31/2017 More... Other streptococcus infection in conditions cla*INVALID FOR*02/25/2017 More... Bacteremia [R78.81] INVALID FOR*02/25/2017 Other lymphedema [I89.0] INVALID FOR*02/25/2017 Chronic pain syndrome [G89.4] INVALID FOR* Opioid type dependence, continuous (HCC) [F11.2*INVALID FOR* Tobacco use disorder [F17.200] Other convulsions [R56.9] INVALID FOR*02/25/2017 Sleep Hypovent Oth Dis [G47.36] INVALID FOR* HYPOPOTASSEMIA [E87.6] INVALID FOR*02/28/2009 VENA CAVA THROMBOSIS [I82.220] INVALID FOR* Anemia, unspecified [D64.9] INVALID FOR*10/31/2017 Embolism and thrombosis (HCC) [I74.9] INVALID FOR*02/25/2017 More... 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 Left leg pain [M79.605] INVALID FOR*02/25/2017 Muscle spasm [M62.838] INVALID FOR* Leg pain [M79.606] INVALID FOR*02/25/2017 Depression, reactive [F32.9] 02/25/2017 More... Iron defic anemia NEC INVALID FOR*10/31/2017 Agitation [R45.1] INVALID FOR*02/25/2017 Other chronic pain [G89.29] INVALID FOR*12/03/2017 More... Altered mental status [R41.82] INVALID FOR*05/19/2016 Chemical dependency (HCC) [F19.20] INVALID FOR* SUMMARY INVALID FOR*02/25/2017 More... Left arm weakness [R29.898] INVALID FOR* More... Chest pain [R07.9] INVALID FOR*10/31/2017 More... Cellulitis [L03.90] INVALID FOR*02/25/2017 More... Depression [F32.9] INVALID FOR* More... Lethargy [R53.83] INVALID FOR* More... Seizure disorder (HCC) [G40.909] INVALID FOR*11/12/2017 More... Low BP [I95.9] INVALID FOR*08/31/2017 More... DJD (degenerative joint disease), cervical [M47* Anxiety state, unspecified [F41.1] 04/22/2014 Pain [R52] INVALID FOR*08/31/2017 More... Fever [R50.9] INVALID FOR*02/25/2017 More... Delirium [R41.0] INVALID FOR*02/25/2017 More... Hematemesis [K92.0] INVALID FOR*02/25/2017 More... Emphysema of lung (HCC) [J43.9] INVALID FOR* Smoker [F17.200] INVALID FOR*02/25/2017 Chronic deep vein thrombosis of left femoral ve*INVALID FOR* Vitamin D deficiency [E55.9] INVALID FOR* Psychosis [F29] INVALID FOR* GERD (gastroesophageal reflux disease) [K21.9] INVALID FOR* Asthma [J45.909] INVALID FOR* Orthostatic hypotension [I95.1] INVALID FOR*08/31/2017 More... Psychiatric disorder [F99] INVALID FOR* More... DVT (deep venous thrombosis) (HCC) [I82.409] INVALID FOR*02/25/2017 [facility] current use of anticoagulant [Z79.01] INVALID FOR*02/25/2017 More... 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 Syncope [R55] INVALID FOR*08/31/2017 Intentional fentanyl overdose (HCC) [T40.4X2A] INVALID FOR*08/31/2017 Nausea [R11.0] INVALID FOR* Delusional disorder (HCC) [F22] INVALID FOR* More... 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 Chest pain, pleuritic [R07.81] INVALID FOR* Syncope [R55] INVALID FOR* Encounter Status:Closed by ALVARO (PHARMACIST)STEVEN on 07/28/18 PROGRESS Observed: 07/27/2018 Status: COMPLETED Source: [place] 9:59 AM [facility] REPOSITORY HNO ID: [id number] Author: Lorraine (Rn) ABIODUN Cervantes Service: (none) Author Type: Registered Nurse Type: Progress Notes Filed: 07/27/2018 10:55 AM Note Text: TRANSITION CARE MANAGEMENT (TCM) INITIAL CONTACT Provider Action/FYI: Transitions of Care Critical Issues: None LABS AND PROCEDURES PENDING AT DISCHARGE: Final EEG report Vascular, CARD, Psych F/U Initial contact with patient post discharge, spoke to dtrLindsey Patient identified by name and . TRANSITION CARE MANAGEMENT: Date of Outreach: 07/27/2018 Outreach Attempt 1: Contact Made Date of Discharge 07/26/2018 Some recent data might be hidden SUMMARY: -Pt discharged from [facility] on 07/26 -Follow up appointment on 08/09- Pharmacist to confirm. -Medication review done- changed meds only.See pharmacy outreach -Admitted for: Syncope/ convulsions CONCERNS: Spoke with daughter- per pt permission. Dtr. reports receiving conflicting information from [facility] as to whether they would refill Percocet Rx without authorization from prescribing provider because there was not a note to indicate that med could be refilled early. Plans to p/u printed RX from [facility] and take to [facility] pharmacy. Encourage to call [facility] to see if there would be any issues ahead of time- agreed. Reports there are no other issues with obtaining Vimpat, Effexor, or Pradaxa. Denies seizure or syncope episodes since discharge. Verbalized understanding of f/u with Vascular and CARD syncope clinic. Plans f/u with Dr. Partida- Psych and her pain management MD as well. Reports she has/ understands instructions per discharge- declines further review Notified that [facility] pharmacist would be calling and f/u on Percocet issue. Denies further concerns or questions at this. Updated medication concern with TCM pharmacist- will address at the initial call. Phamacist will confirm TCM appt as well. NEW MEDICATIONS: * dabigatran etexilate 150 mg Cap Commonly known as: PRADAXA Take 1 capsule by mouth twice daily. * dabigatran etexilate 150 mg Cap Commonly known as: PRADAXA Take 1 capsule by mouth twice daily. * lacosamide 100 mg Tab Commonly known as: VIMPAT Take 1 tablet by mouth twice daily for 30 days. * lacosamide 100 mg Tab Commonly known as: VIMPAT Take 1 tablet by mouth twice daily for 30 ays. * oxyCODONE-acetaminophen 5-325 mg tablet Commonly known as: PERCOCET Take 1 tablet by mouth every 6 hours as needed for Pain for up to 10 doses. Earliest Fill Date: 07/26/18 MEDS HELD/DISCONTINUED: none BRIEF HOSPITAL COURSE: Hospital Course: This is a 52 year old right-handed female who was admitted due to her abnormal K. K was checked and was 3.3 and repleted. Past medical history includes migraines, remote history of PE in 2006 and 3 ischemic strokes, chronic pain in bones (PCP Dr. 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 She describes grand mal seizures that began in 1999 and have occurred with unclear frequency, last episode unknown. She also reports episodes of going out in which she loses awareness without warning, is unresponsive for 45 min- 1 hr, then awakes with confusion. But pt cannot specify the frequency of these episodes. She estimates frequency to be >1 per week. Also describes passing out occasionally which improved with Vimpat. ? Home AEDS: KLP 0.5 TID (uses prn muscle spasm) LCM 100 BID GBP 900 TID (uses for neuralgia) ?Patient re-mentioned having those episodes of passing out without warning as described above and last episode was day before admission. She was recently admitted to EMU for these episodes and discharged on 07/11/18. 3 events recorded during that admission, and no EEG changes were recorded during the episode, patient was diagnosed with PNES. ? The patient was monitored again with continous video-EEG from 07/23/2018 to 07/26/2018 0 typical events were recorded, although EEG is normal, indicate those events are most likely not due to epilepsy. Her vimpat is continued because we don't have good explanation of the episodes and the episodes improves with vimpat. Please see separate video-EEG report for details. MRI brain and MRA and MRV brain were done to rule out any lesions causing those passing out episodes. 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 During the hospital stay, her K was found to be low at 3.3 and was repleted to 4.1. She is continued on her home med potassium pills. She had questions about her IVC filter, when is good to remove, and she is scheduled to see vascular medicine on 08/23 to address this questions. ? Cardiology was consulted during hospital stay, who recommend her to follow up as outpatient. Appointment was scheduled for her on 08/28 with EKG then syncope clinic visit. Tilt table and QSART are also ordered for her to complete as outpatient. ? At the time of discharge, patient claimed that she does not have access to her medications, they are locked up in the storage box while she was admitted to EMU. After confirmation with pharmacy regarding her refill, she claimed her daughter took her percocet and she does not have access and she was given 10 pills of percocet to go home with and other medications including blood thinner and vimpat. See above staff note for detail regarding this conversation. ? Transitions of Care Critical Issues: None LABS AND PROCEDURES PENDING AT DISCHARGE: Final EEG report ? - Lorraine Cervantes RN, [facility] [phone] PROGRESS Observed: 07/27/2018 Status: COMPLETED Source: [place] 9:13 AM [facility] REPOSITORY HNO ID: [id number] Author: Steven Haro Pharmd Service: (none) Author Type: Pharmacist Type: Progress Notes Filed: 07/27/2018 11:23 AM Note Text: TRANSITION CARE MANAGEMENT (TCM) PHARMACY CONTACT Provider Action/FYI: - Pt's daughter to obtain hard copy Rx for Percocet and fill at [facility] pharmacy on 07/27. See note below in blue text for details regarding this medication from inpt providers. - Rx refill request sent to for Klor-Con to Kimber Guzman). - TCM Medication Reconciliation completed for patient. See medication list table below for details. Initial contact with patient post discharge, spoke to patient and family member, daughter Lindsey,. Patient identified by name and . Summary: -Pt discharged from [facility] on 07/26/18. -Follow up appointment on - Pt requests f/u appt on 08/09/18. -Medication review done Yes. -Admitted for Convulsions Patient was contacted by telephone, identified for pharmacist care from discharge call list, and gave consent to manage medications related to transitional care management pursuant to the consult agreement with the [facility]. Patient Concerns: Spoke with pt and daughter Lindsey. Lindsey was able to review pt's medications (with assistance from pt). Lindsey confirms that they were unable to fill bridge supply of Percocet at local pharmacy. Pharmacist on duty on 12 PM wanted to check with prescriber before filling and pharmacist in the AM of 07/27 refused to fill (did not attempt to call prescriber). Lindsey plans to order picker the hard copy Rx and get filled at [facility] pharmacy today, 07/27. [facility] pharmacy will have access to [employer] and will be able to see inpt notes from discharging provider. Below is listed synopsis from discharge summary regarding bridge supply of Percocet. Per discharge summary dated 07/26/18: ? PDMP was checked (below) followed by call to the pharmacy. They confirmed that her Percocet was filled on 07/06/18 (while she ws in- patient in EMU) and Klonopin was filled on 07/15/18. They also confirmed past issues that patient has had with controlled substance, ? Patient was refusing to be discharged if not given Klonopin and Percocet refill. When confronted with the PDMP and pharamacy information, patient reported that her Percocet was refilled in her absence by her daughter (which is now in storage) and then she remembered that she does actually have Klonopin at home, which she refilled after EMU discharge. ? She reports that she has a prescription for Percocet refill for 08/05/18/. She has been taking 2-3 Percocet tablets as needed while in- patient. We will give her 10 tablets without refill to bridge her over till the next due refill. ? Patient showed good understanding of above and agreed with the plan. History of Present Illness: The following content has been copied and pasted from patient's discharge summary. Hospital Course: This is a 52 year old right-handed female who was admitted due to her abnormal K. K was checked and was 3.3 and repleted. Past medical history includes migraines, remote history of PE in 2006 and 3 ischemic strokes, chronic pain in bones (PCP Dr. 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 She describes grand mal seizures that began in 1999 and have occurred with unclear frequency, last episode unknown. She also reports episodes of going out in which she loses awareness without warning, is unresponsive for 45 min- 1 hr, then awakes with confusion. But pt cannot specify the frequency of these episodes. She estimates frequency to be >1 per week. Also describes passing out occasionally which improved with Vimpat. ? Home AEDS: KLP 0.5 TID (uses prn muscle spasm) LCM 100 BID GBP 900 TID (uses for neuralgia) ?Patient re-mentioned having those episodes of passing out without warning as described above and last episode was day before admission. She was recently admitted to EMU for these episodes and discharged on 07/11/18. 3 events recorded during that admission, and no EEG changes were recorded during the episode, patient was diagnosed with PNES. ? The patient was monitored again with continous video-EEG from 07/23/2018 to 07/26/2018 0 typical events were recorded, although EEG is normal, indicate those events are most likely not due to epilepsy. Her vimpat is continued because we don't have good explanation of the episodes and the episodes improves with vimpat. Please see separate video-EEG report for details. MRI brain and MRA and MRV brain were done to rule out any lesions causing those passing out episodes. 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 During the hospital stay, her K was found to be low at 3.3 and was repleted to 4.1. She is continued on her home med potassium pills. She had questions about her IVC filter, when is good to remove, and she is scheduled to see vascular medicine on 08/23 to address this questions. ? Cardiology was consulted during hospital stay, who recommend her to follow up as outpatient. Appointment was scheduled for her on 08/28 with EKG then syncope clinic visit. Tilt table and QSART are also ordered for her to complete as outpatient. ? At the time of discharge, patient claimed that she does not have access to her medications, they are locked up in the storage box while she was admitted to EMU. After confirmation with pharmacy regarding her refill, she claimed her daughter took her percocet and she does not have access and she was given 10 pills of percocet to go home with and other medications including blood thinner and vimpat. See above staff note for detail regarding this conversation. PAST MEDICAL HISTORY Diagnosis Date - Asthma - Cellulitis and abscess of leg, except foot 03/01/2007 Orig Leg issue 1996 - Chronic pain syndrome 05/27/2008 Post-herpetic Neuralgia - Depression, reactive - DJD (degenerative joint disease), cervical - Esophageal reflux Hemorrhagic gastritis / hx GI - Headache - Muscle spasm BZD - Other convulsions 02/25/2009 - PE (pulmonary embolism) 07/2006 - PMH - PAST MEDICAL HISTORY OF 07/19/2005 h/o right leg DVT, PE, s/p IVC filter - PMH - PAST MEDICAL HISTORY OF 2005 h/o Osteomyelitis infection - Sleep disturbance, unspecified sleep study 12/21 didn't show sleep apnea but some central apneas - Syncope Dr. 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 Social History Substance Use Topics - Smoking status: Current Every Day Smoker Packs/day: 0.50 Years: 12.00 Types: Cigarettes - Smokeless tobacco: Never Used Comment: Currently smokes two cigarettes a day - Alcohol use No Immunization History Administered Date(s) Administered H1N1 Influenza 06/27/2009 Influenza Seasonal Inj Age 3+ 10/15/2013 Influenza Seasonal Inj Quadrivalent 05/17/2016 Influenza Seasonal Inj Quadrivalent Age 3+ 05/25/2018 Influenza Seasonal Inj Quadrivalent Age 3+ Pres Free 05/14/2015 05/17/2016 Influenza Vaccine, Split-Non Spec 07/15/2007 06/06/2009 Pneumovax 08/15/2003 04/06/2013 Tdap (Age 7+) 07/04/2009 Deferred Date(s) Deferred Influenza Vaccine, Split-Non Spec 09/11/2013 Last 3 Encounter BP Readings: Date: BP: 07/22/2018 94/60 06/29/2018 117/81 06/12/2018 91/69 eGFR (no units) Date Value 12/06/2012 >60 eGFR-All Other Races (.) Date Value 07/25/2018 >60 eGFR- (no units) Date Value 07/25/2018 >60 Estimated Creatinine Clearance: 80.3 mL/min (based on SCr of 0.7 mg/dL). ALLERGIES Allergen Reactions - Cellacefate Swelling - Depakote [Divalproe* GI Upset - Dilantin [Phenytoin* GI Upset - Divalproex Other: See Comments Abdominal pain - Fish Containing Pro* Unknown - Penicillin Swelling - Penicillin G GI Upset tolerates zosyn . sdm. 03/2007 TOLERATES KEFLEX 11-12-10 - Shrimp Unknown - Sulfa (Sulfonamide * GI Upset Gastritis - Sulfamethoxazole-Tr* Unknown - Topamax [Topiramate] Mental Status Change - Haldol [Haloperidol] Mental Status Change, Cough, GI Upset, Itching Preferred pharmacy: e- [id number] [place] [address] - [address] [facility] [phone] [facility] [address] e- [id number] [place] [address] [address] [facility] [phone] [facility] [address] e- [id number] [facility] [place] [id number] - [address] - [phone] [id number] [facility] e- [id number] [place] [address] - [address] [facility] - [phone] [facility] [address] e- [id number] [place] [address] - [address] - [phone] [facility] [address] e- [facility] [place] [address] - [address] [facility] - [phone] [facility] [address] e- [id number] [place] [address] [address] - [phone] [facility] [phone] [facility] [address] e- [facility] [address] - [place]NAL [place] [address] [address] [facility] [phone] [address] [facility] [address] Medication Reconciliation: Legend: Stopped, New, Changed, Added to list Medication List Medication Directions Comments Action/Plan Cetirizine (ZYRTEC) 10 mg cap Take by mouth once daily. Review SIG, Take 1 tablet daily Updated as Hist Med clonazePAM (KLONOPIN) 0.5 mg tablet Take 1 tablet by mouth three times daily as needed for up to 90 days. Discontinued: 07/23/2018 9:36 AM Removed RESIDENT CARE COORDINATOR dabigatran etexilate (PRADAXA) 150 mg cap Take 1 capsule by mouth twice daily. New Rx issued, Bedside delivery, Pt has filled and is taking as prescribed. dabigatran etexilate (PRADAXA) 150 mg cap Take 1 capsule by mouth twice daily. dicyclomine (BENTYL) 20 mg tablet Take 1 tablet by mouth four times daily. Pt is not taking Marked as pt not taking ergocalciferol, vitamin D2, (DRISDOL) 50,000 unit capsule Take 1 capsule by mouth every Tuesday. Indications: VITAMIN D DEFICIENCY Future Vit D level is ordered for repeat, Pt is taking Component Latest Ref Rng AND Units 11/26/2013 Vitamin D 25 Hydroxy 31.0 - 80.0 ng/mL 9.9 (L) fluticasone-salmeterol (ADVAIR DISKUS) 500-50 mcg/dose dsdv Inhale 1 Puff as instructed twice daily. RINSE AND GARGLE MOUTH WITH WATER AFTER EACH USE. gabapentin (NEURONTIN) 300 mg capsule take 3 capsules by mouth three times a day lacosamide (VIMPAT) 100 mg tab Take 1 tablet by mouth twice daily for 30 days. Print Rx, Pt will get filled at pharmacy today, 07/27. lacosamide (VIMPAT) 100 mg tab Take 1 tablet by mouth twice daily for 30 days. Duplicate Removed Discontinued: 07/23/2018 9:45 AM Removed RESIDENT CARE COORDINATOR loperamide (IMODIUM) 2 mg cap(s) Take 1 capsule by mouth as needed for Diarrhea. omeprazole (PRILOSEC) 20 mg capsule Take 1 capsule by mouth once daily. oxyCODONE-acetaminophen (PERCOCET) 5-325 mg tablet 1 po q4h prn breakthrough pain (MAXIMUM 5 pills/day) Earliest Fill Date: 08/04/18 Print Rx This percocet Rx has an earliest fill date of 08/04/18 oxyCODONE-acetaminophen (PERCOCET) 5-325 mg tablet Take 1 tablet by mouth every 6 hours as needed for Pain for up to 10 doses. Earliest Fill Date: 07/26/18 Print Rx This Percocet Rx was given on discharge, earliest fill date of 07/26/18 Pt was unable to get filled at local pharmacy, will order picker hard copy Rx and attempt to fill at [place] pharmacy Pt and dtr will order picker hard copy today and get filled in [place] potassium chloride 20 mEq TbER Take 1 tablet by mouth every Tuesday,Tuesday,Tuesday. Refill needed Last filled 03/04/18 for 3 month supply on reconcile dispense Refill requested to [facility] promethazine (PHENERGAN) 25 mg tablet Take 1 tablet by mouth every 8 hours as needed. spironolactone (ALDACTONE) 25 mg tablet Take 1 tablet by mouth once daily as needed. Takes as needed Using PRN only, doesn't need a refill Last filled 03/04/18 for 1 month supply on reconcile dispense venlafaxine ER (EFFEXOR XR) 150 mg 24 hr capsule Take 2 capsules by mouth once daily. venlafaxine ER (EFFEXOR XR) 150 mg 24 hr capsule Take 2 capsules by mouth once daily. This Rx was given on discharge, Bedside delivery, Pt has filled and is taking as prescribed. Additional follow up: ? PCP 08/09/18, PharmD f/u in 1-2 weeks Appointments for Next 60 Days Date Time Provider Location Dept Phone 08/23/2018 1:30 PM REGISTRATION CINDY Iyer/S [facility] [phone] 08/23/2018 1:45 PM RAGINI GUY/S [facility] [phone] 08/28/2018 11:30 AM [id number] MAIN CARD Shireen [facility] [phone] 08/28/2018 12:00 PM SYNCOPE [facility] NURSE CARD Shireen [facility] [phone] 08/28/2018 12:30 PM ARIE MOREL CARD Shireen Venecia [phone] 08/28/2018 4:20 PM RYAN [facility] Beac [phone] Interventions Made: Patient education, Medication counseling and Medication reconciliation completed Time spent on patient: 60-75 minutes Steven Haro, SalinaD July 27, 2018 9:14 AM RAQUEL Observed: 07/27/2018 Status: COMPLETED Source: [place] 12:00 AM [facility] REPOSITORY Patient Outreach (FAMPBD) JARETTEDGARDO SCHWARZ ([id number]) 1965 F Date Time Provider Department 07/27/18 LORRAINE CERVANTES (RN) KB During your visit today, we recorded the following information about you: Lorraine Cervantes RN, RN 07/27/2018 10:55 AM Signed TRANSITION CARE MANAGEMENT (TCM) INITIAL CONTACT Provider Action/FYI: Transitions of Care Critical Issues: None LABS AND PROCEDURES PENDING AT DISCHARGE: Final EEG report Vascular, CARD, Psych F/U Initial contact with patient post discharge, spoke to dtrLindsey Patient identified by name and . TRANSITION CARE MANAGEMENT: Date of Outreach: 07/27/2018 Outreach Attempt 1: Contact Made Date of Discharge 07/26/2018 Some recent data might be hidden SUMMARY: -Pt discharged from [facility] on 07/26 -Follow up appointment on 08/09- Pharmacist to confirm. -Medication review done- changed meds only.See pharmacy outreach -Admitted for: Syncope/ convulsions CONCERNS: Spoke with daughter- per pt permission. Dtr. reports receiving conflicting information from [facility] as to whether they would refill Percocet Rx without authorization from prescribing provider because there was not a note to indicate that med could be refilled early. Plans to p/u printed RX from [facility] and take to [facility] pharmacy. Encourage to call [facility] to see if there would be any issues ahead of time- agreed. Reports there are no other issues with obtaining Vimpat, Effexor, or Pradaxa. Denies seizure or syncope episodes since discharge. Verbalized understanding of f/u with Vascular and CARD syncope clinic. Plans f/u with Dr. Partida- Psych and her pain management MD as well. Reports she has/ understands instructions per discharge- declines further review Notified that [facility] pharmacist would be calling and f/u on Percocet issue. Denies further concerns or questions at this. Updated medication concern with TCM pharmacist- will address at the initial call. Phamacist will confirm TCM appt as well. NEW MEDICATIONS: * dabigatran etexilate 150 mg Cap Commonly known as: PRADAXA Take 1 capsule by mouth twice daily. * dabigatran etexilate 150 mg Cap Commonly known as: PRADAXA Take 1 capsule by mouth twice daily. * lacosamide 100 mg Tab Commonly known as: VIMPAT Take 1 tablet by mouth twice daily for 30 days. * lacosamide 100 mg Tab Commonly known as: VIMPAT Take 1 tablet by mouth twice daily for 30 ays. * oxyCODONE-acetaminophen 5-325 mg tablet Commonly known as: PERCOCET Take 1 tablet by mouth every 6 hours as needed for Pain for up to 10 doses. Earliest Fill Date: 07/26/18 MEDS HELD/DISCONTINUED: none BRIEF HOSPITAL COURSE: Hospital Course: This is a 52 year old right-handed female who was admitted due to her abnormal K. K was checked and was 3.3 and repleted. Past medical history includes migraines, remote history of PE in 2006 and 3 ischemic strokes, chronic pain in bones (PCP Dr. 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 She describes grand mal seizures that began in 1999 and have occurred with unclear frequency, last episode unknown. She also reports episodes of going out in which she loses awareness without warning, is unresponsive for 45 min- 1 hr, then awakes with confusion. But pt cannot specify the frequency of these episodes. She estimates frequency to be >1 per week. Also describes passing out occasionally which improved with Vimpat. ? Home AEDS: KLP 0.5 TID (uses prn muscle spasm) LCM 100 BID GBP 900 TID (uses for neuralgia) ?Patient re-mentioned having those episodes of passing out without warning as described above and last episode was day before admission. She was recently admitted to EMU for these episodes and discharged on 07/11/18. 3 events recorded during that admission, and no EEG changes were recorded during the episode, patient was diagnosed with PNES. ? The patient was monitored again with continous video-EEG from 07/23/2018 to 07/26/2018 0 typical events were recorded, although EEG is normal, indicate those events are most likely not due to epilepsy. Her vimpat is continued because we don't have good explanation of the episodes and the episodes improves with vimpat. Please see separate video-EEG report for details. MRI brain and MRA and MRV brain were done to rule out any lesions causing those passing out episodes. 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 During the hospital stay, her K was found to be low at 3.3 and was repleted to 4.1. She is continued on her home med potassium pills. She had questions about her IVC filter, when is good to remove, and she is scheduled to see vascular medicine on 08/23 to address this questions. ? Cardiology was consulted during hospital stay, who recommend her to follow up as outpatient. Appointment was scheduled for her on 08/28 with EKG then syncope clinic visit. Tilt table and QSART are also ordered for her to complete as outpatient. ? At the time of discharge, patient claimed that she does not have access to her medications, they are locked up in the storage box while she was admitted to EMU. After confirmation with pharmacy regarding her refill, she claimed her daughter took her percocet and she does not have access and she was given 10 pills of percocet to go home with and other medications including blood thinner and vimpat. See above staff note for detail regarding this conversation. ? Transitions of Care Critical Issues: None LABS AND PROCEDURES PENDING AT DISCHARGE: Final EEG report ? Lorraine Cervantes RN, [facility] [phone] Allergies As of Date: 07/27/2018 Noted Allergy Reaction CELLACEFATE 01/07/2006 7 - Swelling DEPAKOTE (DIVALPROEX SODIUM) 01/07/2006 8 - GI Upset DILANTIN (PHENYTOIN SODIUM EXTEND*06/03/2015 8 - GI Upset DIVALPROEX 14 - Other: See Comments Comments: Abdominal pain FISH CONTAINING PRODUCTS 05/13/2015 16 - Unknown PENICILLIN 7 - Swelling PENICILLIN G 01/07/2006 8 - GI Upset Comments: tolerates zosyn . sdm. 03/2007 TOLERATES KEFLEX 3-31-11 SHRIMP 05/13/2015 16 - Unknown SULFA (SULFONAMIDE ANTIBIOTICS) 05/17/2007 8 - GI Upset Comments: Gastritis SULFAMETHOXAZOLE-TRIMETHOPRIM 16 - Unknown TOPAMAX (TOPIRAMATE) 05/21/2009 1 - Mental Status Change HALDOL (HALOPERIDOL) 02/03/2008 1 - Mental Status Change 3 - Cough 8 - GI Upset 9 - Itching Date Reviewed: 07/26/2018 Reviewed by: Marielena OliverosRn) ABIODUN Mcnair - Fully Assessed Reason for Visit: Transition Of Care [4074] Cmt: hospital discharge 07/26 syncope/ convulsions Reason For Visit History Recorded Prescriptions as of 07/27/2018 Sig: CETIRIZINE 10 MG CAPSULE Take by mouth once daily. CLONAZEPAM 0.5 MG TABLET Take 1 tablet by mouth three * DABIGATRAN ETEXILATE 150 MG C* Take 1 capsule by mouth twice* DABIGATRAN ETEXILATE 150 MG C* Take 1 capsule by mouth twice* DICYCLOMINE 20 MG TABLET Take 1 tablet by mouth four t* ERGOCALCIFEROL (VITAMIN D2) 5* Take 1 capsule by mouth every* FLUTICASONE 500 MCG-SALMETERO* Inhale 1 Puff as instructed t* GABAPENTIN 300 MG CAPSULE take 3 capsules by mouth thre* LACOSAMIDE 100 MG TABLET Take 1 tablet by mouth twice * LOPERAMIDE 2 MG CAPSULE Take 1 capsule by mouth as ne* OMEPRAZOLE 20 MG CAPSULE,VENESSA* Take 1 capsule by mouth once * OXYCODONE-ACETAMINOPHEN 5 MG-* 1 po q4h prn breakthrough anthony* OXYCODONE-ACETAMINOPHEN 5 MG-* Take 1 tablet by mouth every * POTASSIUM CHLORIDE ER 20 MEQ * Take 1 tablet by mouth every * PROMETHAZINE 25 MG TABLET Take 1 tablet by mouth every * SPIRONOLACTONE 25 MG TABLET Take 1 tablet by mouth once d* VENLAFAXINE ER 150 MG CAPSULE* Take 2 capsules by mouth once* VENLAFAXINE ER 150 MG CAPSULE* Take 2 capsules by mouth once* Problem List As Of Date 07/27/2018 Noted Resolved Cellulitis and abscess of leg, except foot [L03*INVALID FOR*02/25/2017 Methicillin susceptible Staphylococcus aureus i*INVALID FOR*02/25/2017 Pseudomonas infection in conditions classified *INVALID FOR*02/25/2017 Edema [R60.9] INVALID FOR*08/31/2017 Reflex sympathetic dystrophy of lower limb [G90*INVALID FOR* Psoas muscle abscess (HCC) [K68.12] INVALID FOR*02/25/2017 More... Candidiasis of unspecified site [B37.9] INVALID FOR*08/31/2017 More... Other streptococcus infection in conditions cla*INVALID FOR*02/25/2017 More... Bacteremia [R78.81] INVALID FOR*02/25/2017 Other lymphedema [I89.0] INVALID FOR*02/25/2017 Chronic pain syndrome [G89.4] INVALID FOR* Opioid type dependence, continuous (HCC) [F11.2*INVALID FOR* Tobacco use disorder [F17.200] Other convulsions [R56.9] INVALID FOR*02/25/2017 Sleep Hypovent Oth Dis [G47.36] INVALID FOR* HYPOPOTASSEMIA [E87.6] INVALID FOR*02/28/2009 VENA CAVA THROMBOSIS [I82.220] INVALID FOR* Anemia, unspecified [D64.9] INVALID FOR*10/31/2017 Embolism and thrombosis (HCC) [I74.9] INVALID FOR*02/25/2017 More... 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 Left leg pain [M79.605] INVALID FOR*02/25/2017 Muscle spasm [M62.838] INVALID FOR* Leg pain [M79.606] INVALID FOR*02/25/2017 Depression, reactive [F32.9] 02/25/2017 More... Iron defic anemia NEC INVALID FOR*10/31/2017 Agitation [R45.1] INVALID FOR*02/25/2017 Other chronic pain [G89.29] INVALID FOR*12/03/2017 More... Altered mental status [R41.82] INVALID FOR*05/19/2016 Chemical dependency (HCC) [F19.20] INVALID FOR* SUMMARY INVALID FOR*02/25/2017 More... Left arm weakness [R29.898] INVALID FOR* More... Chest pain [R07.9] INVALID FOR*10/31/2017 More... Cellulitis [L03.90] INVALID FOR*02/25/2017 More... Depression [F32.9] INVALID FOR* More... Lethargy [R53.83] INVALID FOR* More... Seizure disorder (HCC) [G40.909] INVALID FOR*11/12/2017 More... Low BP [I95.9] INVALID FOR*08/31/2017 More... DJD (degenerative joint disease), cervical [M47* Anxiety state, unspecified [F41.1] 04/22/2014 Pain [R52] INVALID FOR*08/31/2017 More... Fever [R50.9] INVALID FOR*02/25/2017 More... Delirium [R41.0] INVALID FOR*02/25/2017 More... Hematemesis [K92.0] INVALID FOR*02/25/2017 More... Emphysema of lung (HCC) [J43.9] INVALID FOR* Smoker [F17.200] INVALID FOR*02/25/2017 Chronic deep vein thrombosis of left femoral ve*INVALID FOR* Vitamin D deficiency [E55.9] INVALID FOR* Psychosis [F29] INVALID FOR* GERD (gastroesophageal reflux disease) [K21.9] INVALID FOR* Asthma [J45.909] INVALID FOR* Orthostatic hypotension [I95.1] INVALID FOR*08/31/2017 More... Psychiatric disorder [F99] INVALID FOR* More... DVT (deep venous thrombosis) ([facility]) [I82.409] INVALID FOR*02/25/2017 [facility] current use of anticoagulant [Z79.01] INVALID FOR*02/25/2017 More... 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 Syncope [R55] INVALID FOR*08/31/2017 Intentional fentanyl overdose ([facility]) [T40.4X2A] INVALID FOR*08/31/2017 Nausea [R11.0] INVALID FOR* Delusional disorder (HCC) [F22] INVALID FOR* More... 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 Chest pain, pleuritic [R07.81] INVALID FOR* Syncope [R55] INVALID FOR* Encounter Status:Closed by LORRAINE CERVANTES on 07/27/18 RAQUEL Observed: 07/27/2018 Status: COMPLETED Source: [place] 12:00 AM [facility] REPOSITORY Patient Outreach (PHRXRF) EDGARDO DENSON ([id number]) 1965 F Date Time Provider Department 07/27/18 STEVEN HARO PHARMD, PHRXR During your visit today, we recorded the following information about you: Steven Haro PharmD 07/27/2018 11:23 AM Signed TRANSITION CARE MANAGEMENT (TCM) PHARMACY CONTACT Provider Action/FYI: - Pt's daughter to obtain hard copy Rx for Percocet and fill at [facility] pharmacy on 07/27. See note below in blue text for details regarding this medication from inpt providers. - Rx refill request sent to for [facility] to [facility]). - TCM Medication Reconciliation completed for patient. See medication list table below for details. Initial contact with patient post discharge, spoke to patient and family member, daughter Lindsey,. Patient identified by name and . Summary: -Pt discharged from [facility] on 07/26/18. -Follow up appointment on - Pt requests f/u appt on 08/09/18. -Medication review done Yes. -Admitted for Convulsions Patient was contacted by telephone, identified for pharmacist care from discharge call list, and gave consent to manage medications related to transitional care management pursuant to the consult agreement with the [facility]. Patient Concerns: Spoke with pt and daughter Lindsey. Lindsey was able to review pt's medications (with assistance from pt). Lindsey confirms that they were unable to fill bridge supply of Percocet at local pharmacy. Pharmacist on duty on 07/26 PM wanted to check with prescriber before filling and pharmacist in the AM of 07/27 refused to fill (did not attempt to call prescriber). Lindsey plans to order picker the hard copy Rx and get filled at [facility] pharmacy today, 07/27. [facility] pharmacy will have access to [employer] and will be able to see inpt notes from discharging provider. Below is listed synopsis from discharge summary regarding bridge supply of Percocet. Per discharge summary dated 07/26/18: ? PDMP was checked (below) followed by call to the pharmacy. They confirmed that her Percocet was filled on 07/06/18 (while she ws in-patient in EMU) and Klonopin was filled on 07/15/18. They also confirmed past issues that patient has had with controlled substance, ? Patient was refusing to be discharged if not given Klonopin and Percocet refill. When confronted with the PDMP and pharamacy information, patient reported that her Percocet was refilled in her absence by her daughter (which is now in storage) and then she remembered that she does actually have Klonopin at home, which she refilled after EMU discharge. ? She reports that she has a prescription for Percocet refill for 08/05/18/. She has been taking 2-3 Percocet tablets as needed while in-patient. We will give her 10 tablets without refill to bridge her over till the next due refill. ? Patient showed good understanding of above and agreed with the plan. History of Present Illness: The following content has been copied and pasted from patient's discharge summary. Hospital Course: This is a 52 year old right-handed female who was admitted due to her abnormal K. K was checked and was 3.3 and repleted. Past medical history includes migraines, remote history of PE in 2006 and 3 ischemic strokes, chronic pain in bones (PCP Dr. 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 She describes grand mal seizures that began in 1999 and have occurred with unclear frequency, last episode unknown. She also reports episodes of going out in which she loses awareness without warning, is unresponsive for 45 min- 1 hr, then awakes with confusion. But pt cannot specify the frequency of these episodes. She estimates frequency to be >1 per week. Also describes passing out occasionally which improved with Vimpat. ? Home AEDS: KLP 0.5 TID (uses prn muscle spasm) LCM 100 BID GBP 900 TID (uses for neuralgia) ?Patient re-mentioned having those episodes of passing out without warning as described above and last episode was day before admission. She was recently admitted to EMU for these episodes and discharged on 07/11/18. 3 events recorded during that admission, and no EEG changes were recorded during the episode, patient was diagnosed with PNES. ? The patient was monitored again with continous video-EEG from 07/23/2018 to 07/26/2018 0 typical events were recorded, although EEG is normal, indicate those events are most likely not due to epilepsy. Her vimpat is continued because we don't have good explanation of the episodes and the episodes improves with vimpat. Please see separate video-EEG report for details. MRI brain and MRA and MRV brain were done to rule out any lesions causing those passing out episodes. 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 During the hospital stay, her K was found to be low at 3.3 and was repleted to 4.1. She is continued on her home med potassium pills. She had questions about her IVC filter, when is good to remove, and she is scheduled to see vascular medicine on 08/23 to address this questions. ? Cardiology was consulted during hospital stay, who recommend her to follow up as outpatient. Appointment was scheduled for her on 08/28 with EKG then syncope clinic visit. Tilt table and QSART are also ordered for her to complete as outpatient. ? At the time of discharge, patient claimed that she does not have access to her medications, they are locked up in the storage box while she was admitted to EMU. After confirmation with pharmacy regarding her refill, she claimed her daughter took her percocet and she does not have access and she was given 10 pills of percocet to go home with and other medications including blood thinner and vimpat. See above staff note for detail regarding this conversation. PAST MEDICAL HISTORY Diagnosis Date - Asthma - Cellulitis and abscess of leg, except foot 03/01/2007 Orig Leg issue 1996 - Chronic pain syndrome 05/27/2008 Post-herpetic Neuralgia - Depression, reactive - DJD (degenerative joint disease), cervical - Esophageal reflux Hemorrhagic gastritis / hx GI - Headache - Muscle spasm BZD - Other convulsions 02/25/2009 - PE (pulmonary embolism) 07/2006 - PMH - PAST MEDICAL HISTORY OF 07/19/2005 h/o right leg DVT, PE, s/p IVC filter - PMH - PAST MEDICAL HISTORY OF 2005 h/o Osteomyelitis infection - Sleep disturbance, unspecified sleep study 12/21 didn't show sleep apnea but some central apneas - Syncope Dr. 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 Social History Substance Use Topics - Smoking status: Current Every Day Smoker Packs/day: 0.50 Years: 12.00 Types: Cigarettes - Smokeless tobacco: Never Used Comment: Currently smokes two cigarettes a day - Alcohol use No Immunization History Administered Date(s) Administered H1N1 Influenza 06/27/2009 Influenza Seasonal Inj Age 3+ 10/15/2013 Influenza Seasonal Inj Quadrivalent 05/17/2016 Influenza Seasonal Inj Quadrivalent Age 3+ 05/25/2018 Influenza Seasonal Inj Quadrivalent Age 3+ Pres Free 05/14/2015 05/17/2016 Influenza Vaccine, Split-Non Spec 07/15/2007 06/06/2009 Pneumovax 08/15/2003 04/06/2013 Tdap (Age 7+) 07/04/2009 Deferred Date(s) Deferred Influenza Vaccine, Split-Non Spec 09/11/2013 Last 3 Encounter BP Readings: Date: BP: 07/22/2018 94/60 06/29/2018 117/81 06/12/2018 91/69 eGFR (no units) Date Value 12/06/2012 >60 eGFR-All Other Races (.) Date Value 07/25/2018 >60 eGFR- (no units) Date Value 07/25/2018 >60 Estimated Creatinine Clearance: 80.3 mL/min (based on SCr of 0.7 mg/dL). ALLERGIES Allergen Reactions - Cellacefate Swelling - Depakote [Divalproe* GI Upset - Dilantin [Phenytoin* GI Upset - Divalproex Other: See Comments Abdominal pain - Fish Containing Pro* Unknown - Penicillin Swelling - Penicillin G GI Upset tolerates zosyn . sdm. 03/2007 TOLERATES KEFLEX 11-12-10 - Shrimp Unknown - Sulfa (Sulfonamide * GI Upset Gastritis - Sulfamethoxazole-Tr* Unknown - Topamax [Topiramate] Mental Status Change - Haldol [Haloperidol] Mental Status Change, Cough, GI Upset, Itching Preferred pharmacy: e- [id number] [place] [place] [address] - [address] [facility] - [phone] [facility] [address] e- [id number] [place] [address] - [address] [facility] - [phone] [facility] [address] e- [facility] [place] [id number] - [address] [facility] - [phone] [facility] [address] e- [id number] [place] [id number] - [address] [facility] - [phone] [facility] [address] e- [facility] [place] [address] - [address] - [phone] [facility] [address] e- [facility] [place] [address] - [address] [facility] - [phone] [facility] [address] e- [id number] [place] [address] [address] - [phone] [facility] [id number] [place] [address] e- [facility] [address] - INTERNAL USE ONLY - [place] [id number] - [phone] [facility] - [phone] [facility] [address] Medication Reconciliation: Legend: Stopped, New, Changed, Added to list Medication List Medication Directions Comments Action/Plan Cetirizine (ZYRTEC) 10 mg cap Take by mouth once daily. Review SIG, Take 1 tablet daily Updated as Hist Med clonazePAM (KLONOPIN) 0.5 mg tablet Take 1 tablet by mouth three times daily as needed for up to 90 days. Discontinued: 07/23/2018 9:36 AM Removed RESIDENT CARE COORDINATOR dabigatran etexilate (PRADAXA) 150 mg cap Take 1 capsule by mouth twice daily. New Rx issued, Bedside delivery, Pt has filled and is taking as prescribed. dabigatran etexilate (PRADAXA) 150 mg cap Take 1 capsule by mouth twice daily. dicyclomine (BENTYL) 20 mg tablet Take 1 tablet by mouth four times daily. Pt is not taking Marked as pt not taking ergocalciferol, vitamin D2, (DRISDOL) 50,000 unit capsule Take 1 capsule by mouth every Tuesday. Indications: VITAMIN D DEFICIENCY Future Vit D level is ordered for repeat, Pt is taking Component Latest Ref Rng AND Units 11/26/2013 Vitamin D 25 Hydroxy 31.0 - 80.0 ng/mL 9.9 (L) fluticasone-salmeterol (ADVAIR DISKUS) 500-50 mcg/dose dsdv Inhale 1 Puff as instructed twice daily. RINSE AND GARGLE MOUTH WITH WATER AFTER EACH USE. gabapentin (NEURONTIN) 300 mg capsule take 3 capsules by mouth three times a day lacosamide (VIMPAT) 100 mg tab Take 1 tablet by mouth twice daily for 30 days. Print Rx, Pt will get filled at pharmacy today, 07/27. lacosamide (VIMPAT) 100 mg tab Take 1 tablet by mouth twice daily for 30 days. Duplicate Removed Discontinued: 07/23/2018 9:45 AM Removed RESIDENT CARE COORDINATOR loperamide (IMODIUM) 2 mg cap(s) Take 1 capsule by mouth as needed for Diarrhea. omeprazole (PRILOSEC) 20 mg capsule Take 1 capsule by mouth once daily. oxyCODONE-acetaminophen (PERCOCET) 5-325 mg tablet 1 po q4h prn breakthrough pain (MAXIMUM 5 pills/day) Earliest Fill Date: 08/04/18 Print Rx This percocet Rx has an earliest fill date of 08/04/18 oxyCODONE-acetaminophen (PERCOCET) 5-325 mg tablet Take 1 tablet by mouth every 6 hours as needed for Pain for up to 10 doses. Earliest Fill Date: 07/26/18 Print Rx This Percocet Rx was given on discharge, earliest fill date of 07/26/18 Pt was unable to get filled at local pharmacy, will order picker hard copy Rx and attempt to fill at [place] pharmacy Pt and dtr will order picker hard copy today and get filled in [place] potassium chloride 20 mEq TbER Take 1 tablet by mouth every Tuesday,Tuesday,Tuesday. Refill needed Last filled 03/04/18 for 3 month supply on reconcile dispense Refill requested to [facility] promethazine (PHENERGAN) 25 mg tablet Take 1 tablet by mouth every 8 hours as needed. spironolactone (ALDACTONE) 25 mg tablet Take 1 tablet by mouth once daily as needed. Takes as needed Using PRN only, doesn't need a refill Last filled 03/04/18 for 1 month supply on reconcile dispense venlafaxine ER (EFFEXOR XR) 150 mg 24 hr capsule Take 2 capsules by mouth once daily. venlafaxine ER (EFFEXOR XR) 150 mg 24 hr capsule Take 2 capsules by mouth once daily. This Rx was given on discharge, Bedside delivery, Pt has filled and is taking as prescribed. Additional follow up: ? PCP 08/09/18, PharmD f/u in 1-2 weeks Appointments for Next 60 Days Date Time Provider Location Dept Phone 08/23/2018 1:30 PM REGISTRATION CINDY J/S d [phone] 08/23/2018 1:45 PM RAGINI GUY J/S Bld [phone] 08/28/2018 11:30 AM [id number] MAIN CARD J D [phone] 08/28/2018 12:00 PM SYNCOPE OPD NURSE CARD J [facility] [phone] 08/28/2018 12:30 PM ARIE MOREL CARD J [facility] [phone] 08/28/2018 4:20 PM RYAN CASTANO [facility] Beac [phone] Interventions Made: Patient education, Medication counseling and Medication reconciliation completed Time spent on patient: 60-75 minutes Steven Haro, SalinaD July 27, 2018 9:14 AM Allergies As of Date: 07/27/2018 Noted Allergy Reaction CELLACEFATE 01/07/2006 7 - Swelling DEPAKOTE (DIVALPROEX SODIUM) 01/07/2006 8 - GI Upset DILANTIN (PHENYTOIN SODIUM EXTEND*06/03/2015 8 - GI Upset DIVALPROEX 14 - Other: See Comments Comments: Abdominal pain FISH CONTAINING PRODUCTS 05/13/2015 16 - Unknown PENICILLIN 7 - Swelling PENICILLIN G 01/07/2006 8 - GI Upset Comments: tolerates zosyn . sdm. 03/2007 TOLERATES KEFLEX 3-31-11 SHRIMP 05/13/2015 16 - Unknown SULFA (SULFONAMIDE ANTIBIOTICS) 05/17/2007 8 - GI Upset Comments: Gastritis SULFAMETHOXAZOLE-TRIMETHOPRIM 16 - Unknown TOPAMAX (TOPIRAMATE) 05/21/2009 1 - Mental Status Change HALDOL (HALOPERIDOL) 02/03/2008 1 - Mental Status Change 3 - Cough 8 - GI Upset 9 - Itching Date Reviewed: 07/26/2018 Reviewed by: Marielena OliverosRn) ABIODUN Mcnair - Fully Assessed Reason for Visit: Transition Of Care [4074] Cmt: Pharmacy - Hospital Discharge 07/26/18 Prescriptions as of 07/27/2018 Sig: CETIRIZINE 10 MG CAPSULE Take 1 capsule by mouth once * CLONAZEPAM 0.5 MG TABLET Take 1 tablet by mouth three * DABIGATRAN ETEXILATE 150 MG C* Take 1 capsule by mouth twice* DABIGATRAN ETEXILATE 150 MG C* Take 1 capsule by mouth twice* DICYCLOMINE 20 MG TABLET Take 1 tablet by mouth four t* Patient not taking: Reported on 07/27/2018 ERGOCALCIFEROL (VITAMIN D2) 5* Take 1 capsule by mouth every* FLUTICASONE 500 MCG-SALMETERO* Inhale 1 Puff as instructed t* GABAPENTIN 300 MG CAPSULE take 3 capsules by mouth thre* LACOSAMIDE 100 MG TABLET Take 1 tablet by mouth twice * LOPERAMIDE 2 MG CAPSULE Take 1 capsule by mouth as ne* OMEPRAZOLE 20 MG CAPSULE,VENESSA* Take 1 capsule by mouth once * OXYCODONE-ACETAMINOPHEN 5 MG-* 1 po q4h prn breakthrough anthony* OXYCODONE-ACETAMINOPHEN 5 MG-* Take 1 tablet by mouth every * POTASSIUM CHLORIDE ER 20 MEQ * Take 1 tablet by mouth every * PROMETHAZINE 25 MG TABLET Take 1 tablet by mouth every * SPIRONOLACTONE 25 MG TABLET Take 1 tablet by mouth once d* VENLAFAXINE ER 150 MG CAPSULE* Take 2 capsules by mouth once* VENLAFAXINE ER 150 MG CAPSULE* Take 2 capsules by mouth once* Medication notes this encounter FLUTICASONE 500 MCG-SALMETEROL 50 MCG/DOSE BLISTR POWDR FOR INHALATION >> Steven Haro, PharmD 07/27/2018 11:18 AM >> ALVARO (PHARMACIST)STEVEN Irene Jul 27, 2018 11:18 AM Problem List As Of Date 07/27/2018 Noted Resolved Cellulitis and abscess of leg, except foot [L03*INVALID FOR*02/25/2017 Methicillin susceptible Staphylococcus aureus i*INVALID FOR*02/25/2017 Pseudomonas infection in conditions classified *INVALID FOR*02/25/2017 Edema [R60.9] INVALID FOR*08/31/2017 Reflex sympathetic dystrophy of lower limb [G90*INVALID FOR* Psoas muscle abscess (HCC) [K68.12] INVALID FOR*02/25/2017 More... Candidiasis of unspecified site [B37.9] INVALID FOR*08/31/2017 More... Other streptococcus infection in conditions cla*INVALID FOR*02/25/2017 More... Bacteremia [R78.81] INVALID FOR*02/25/2017 Other lymphedema [I89.0] INVALID FOR*02/25/2017 Chronic pain syndrome [G89.4] INVALID FOR* Opioid type dependence, continuous (HCC) [F11.2*INVALID FOR* Tobacco use disorder [F17.200] Other convulsions [R56.9] INVALID FOR*02/25/2017 Sleep Hypovent Oth Dis [G47.36] INVALID FOR* HYPOPOTASSEMIA [E87.6] INVALID FOR*02/28/2009 VENA CAVA THROMBOSIS [I82.220] INVALID FOR* Anemia, unspecified [D64.9] INVALID FOR*10/31/2017 Embolism and thrombosis (HCC) [I74.9] INVALID FOR*02/25/2017 More... 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 Left leg pain [M79.605] INVALID FOR*02/25/2017 Muscle spasm [M62.838] INVALID FOR* Leg pain [M79.606] INVALID FOR*02/25/2017 Depression, reactive [F32.9] 02/25/2017 More... Iron defic anemia NEC INVALID FOR*10/31/2017 Agitation [R45.1] INVALID FOR*02/25/2017 Other chronic pain [G89.29] INVALID FOR*12/03/2017 More... Altered mental status [R41.82] INVALID FOR*05/19/2016 Chemical dependency (HCC) [F19.20] INVALID FOR* SUMMARY INVALID FOR*02/25/2017 More... Left arm weakness [R29.898] INVALID FOR* More... Chest pain [R07.9] INVALID FOR*10/31/2017 More... Cellulitis [L03.90] INVALID FOR*02/25/2017 More... Depression [F32.9] INVALID FOR* More... Lethargy [R53.83] INVALID FOR* More... Seizure disorder (HCC) [G40.909] INVALID FOR*11/12/2017 More... Low BP [I95.9] INVALID FOR*08/31/2017 More... DJD (degenerative joint disease), cervical [M47* Anxiety state, unspecified [F41.1] 04/22/2014 Pain [R52] INVALID FOR*08/31/2017 More... Fever [R50.9] INVALID FOR*02/25/2017 More... Delirium [R41.0] INVALID FOR*02/25/2017 More... Hematemesis [K92.0] INVALID FOR*02/25/2017 More... Emphysema of lung (HCC) [J43.9] INVALID FOR* Smoker [F17.200] INVALID FOR*02/25/2017 Chronic deep vein thrombosis of left femoral ve*INVALID FOR* Vitamin D deficiency [E55.9] INVALID FOR* Psychosis [F29] INVALID FOR* GERD (gastroesophageal reflux disease) [K21.9] INVALID FOR* Asthma [J45.909] INVALID FOR* Orthostatic hypotension [I95.1] INVALID FOR*08/31/2017 More... Psychiatric disorder [F99] INVALID FOR* More... DVT (deep venous thrombosis) (HCC) [I82.409] INVALID FOR*02/25/2017 [facility] current use of anticoagulant [Z79.01] INVALID FOR*02/25/2017 More... 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 Syncope [R55] INVALID FOR*08/31/2017 Intentional fentanyl overdose (HCC) [T40.4X2A] INVALID FOR*08/31/2017 Nausea [R11.0] INVALID FOR* Delusional disorder (HCC) [F22] INVALID FOR* More... 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 Chest pain, pleuritic [R07.81] INVALID FOR* Syncope [R55] INVALID FOR* Medications Discontinued During This Encounter lacosamide (VIMPAT) 100 mg tab 60 t* 3 12/16/2017 07/27/2018 Class: Print RX Route: ORAL Sig: Take 1 tablet by mouth twice daily for 30 days. Disc: Duplicate Entry Encounter Status:Closed by ALVARO (PHARMACIST)STEVEN on 07/27/18 NURSING PROG Observed: 07/26/2018 Status: COMPLETED Source: [place] 6:48 PM [facility] REPOSITORY O ID: [id number] Author: Bronwyn OliverosRn) ABIODUN Carroll Service: Nursing Author Type: Registered Nurse Type: Nursing Progress Note Filed: 07/26/2018 8:18 PM Note Text: Nursing Progress Note Patient Name: Edgardo Denson Patient Location: H060 043/H060-43 Daily Note: When trying to dc pt. She became angry, agitated and combative, she was insisting on more prescriptions for Klonopin and percocet, nurse reinforced and reminded pt of conversation she had with Addie Ross MD. Where pt was agreeable to dc and would follow up in outpatient. Pt then agreed and was dc'd. This note was completed by: Bronwyn Carroll RN NURSING PROG Observed: 07/26/2018 Status: COMPLETED Source: [place] 6:48 PM [facility] REPOSITORY HNO ID: [id number] Author: Bronwyn OliverosRn) ABIODUN Carroll Service: Nursing Author Type: Registered Nurse Type: Nursing Progress Note Filed: 07/26/2018 8:18 PM Note Text: Nursing Progress Note Patient Name: Edgardo Denson Patient Location: H060 043/H060-43 Transfer Note: Patient transferred out to room/unit H60 43 in stable condition. Actions taken: Patient belongings with patient. This note was completed by: Bronwyn Carroll RN ALLIED HEALTH Observed: 07/26/2018 Status: COMPLETED Source: [place] 3:06 PM [facility] REPOSITORY HNO ID: [id number] Author: Wilton Solomon (Chaplain) Service: Spiritual Care Author Type: Director Talent Management Type: Allied Health Filed: 07/26/2018 3:11 PM Note Text: SPIRITUALCARE Spiritual Care Visit- Brief Note Name: Edgardo Denson Date: July 26, 2018 Notes: Pt. Processes loneliness of being in the hospital and away from her daughter who has chronic on-going health issues. Describes long history in the medical system and associated complications. Describes traumatic event connected to an infection that was life altering for her many years ago, and how she has felt abandoned by those who thought would extend care to her. Acknowledges depressiveness and anxiety and that she has difficulty coping. Director Talent Management Signature: Chaplain Madie To contact the Spiritual Care Department: Please call [phone] or Page the On-Call Director Talent Management at pager [phone] Thank you for the opportunity to be of service. This is an electronically created document. IF PRINTED, PLEASE DO NOT REMOVE FROM THE CHART OR MODIFY PRINTED COPY. PLAN OF CARE Observed: 07/26/2018 Status: COMPLETED Source: [place] 2:07 PM [facility] REPOSITORY HNO ID: [id number] Author: Andrea Moon Outreach Educator) Service: (none) Author Type: (none) Type: Plan of Care Filed: 07/26/2018 2:08 PM Note Text: PHARMACY BEDSIDE DELIVERY SERVICE Patient Name: Edgardo Denson The marked outpatient medications were Filled at: [facility] and delivered to the patient's bedside to patient Medication List CHANGE how you take these medications * dabigatran etexilate 150 mg Cap RTS Commonly known as: PRADAXA Take 1 capsule by mouth twice daily. What changed: Another medication with the same name was added. Make sure you understand how and when to take each. * dabigatran etexilate 150 mg Cap Commonly known as: PRADAXA Take 1 capsule by mouth twice daily. What changed: You were already taking a medication with the same name, and this prescription was added. Make sure you understand how and when to take each. * lacosamide 100 mg Tab X Commonly known as: VIMPAT Take 1 tablet by mouth twice daily for 30 days. What changed: Another medication with the same name was added. Make sure you understand how and when to take each. * lacosamide 100 mg Tab Commonly known as: VIMPAT Take 1 tablet by mouth twice daily for 30 days. What changed: You were already taking a medication with the same name, and this prescription was added. Make sure you understand how and when to take each. * venlafaxine ER 150 mg 24 hr capsule RTS Commonly known as: EFFEXOR XR Take 2 capsules by mouth once daily. What changed: Another medication with the same name was added. Make sure you understand how and when to take each. * venlafaxine ER 150 mg 24 hr capsule Commonly known as: EFFEXOR XR Take 2 capsules by mouth once daily. What changed: You were already taking a medication with the same name, and this prescription was added. Make sure you understand how and when to take each. * This list has 6 medication(s) that are the same as other medications prescribed for you. Read the directions carefully, and ask your doctor or other care provider to review them with you. CONTINUE taking these medications clonazePAM 0.5 mg tablet Commonly known as: KlonoPIN Take 1 tablet by mouth three times daily as needed for up to 90 days. dicyclomine 20 mg tablet Commonly known as: BENTYL Take 1 tablet by mouth four times daily. ergocalciferol (vitamin D2) 50,000 unit capsule Commonly known as: DRISDOL Take 1 capsule by mouth every Tuesday. Indications: VITAMIN D DEFICIENCY fluticasone-salmeterol 500-50 mcg/dose Dsdv Commonly known as: ADVAIR DISKUS Inhale 1 Puff as instructed twice daily. RINSE AND GARGLE MOUTH WITH WATER AFTER EACH USE. gabapentin 300 mg capsule Commonly known as: NEURONTIN take 3 capsules by mouth three times a day loperamide 2 mg cap(s) Commonly known as: IMODIUM Take 1 capsule by mouth as needed for Diarrhea. omeprazole 20 mg capsule Commonly known as: PriLOSEC Take 1 capsule by mouth once daily. oxyCODONE-acetaminophen 5-325 mg tablet Commonly known as: PERCOCET 1 po q4h prn breakthrough pain (MAXIMUM 5 pills/day) Earliest Fill Date: 08/04/18 Start taking on: 08/04/2018 potassium chloride 20 mEq Tber Take 1 tablet by mouth every Tuesday,Tuesday,Tuesday. promethazine 25 mg tablet Commonly known as: PHENERGAN Take 1 tablet by mouth every 8 hours as needed. spironolactone 25 mg tablet Commonly known as: ALDACTONE Take 1 tablet by mouth once daily as needed. Takes as needed ZyrTEC 10 mg Cap Generic drug: Cetirizine You might also be taking other medications not listed above. If you have questions about any of your other medications, talk to the person who prescribed them or your Primary Care Provider. Andrea Moon Outreach Educator) July 26, 2018 2:07 PM CASE MANAGEM Observed: 07/26/2018 Status: COMPLETED Source: [place] 1:31 PM [facility] REPOSITORY HNO ID: [id number] Author: Emmy Haines (Sw) Service: Care Management Author Type: Asphalt Paver Type: Care Mgt Progress Note Filed: 07/26/2018 1:56 PM Note Text: CARE MANAGEMENT DISCHARGE NOTE SERVICE DATE: 07/26/2018 SERVICE TIME: 1:30pm LOS: 2 days Pt d/c order is in place. Per medical team, pt has no PAC skilled needs. Pt requires cab voucher to d/c to her fiend's home ([address] [place] [address]) as her DTR is unable to pick her up from the hospital but can pick her up there. This provided pt with cab voucher on this date (Kristopher Emmanuel; ph: [phone] to request cab order picker). RN aware. Pt is agreeable to d/c plan. Please contact the CM listed below if any new skilled d/c needs arise. SIGNATURE: CHARITO Potter PATIENT NAME: Edgardo Denson DATE: July 26, 2018 TIME: 1:31 PM PAGER/CONTACT #: [phone] PLAN OF CARE Observed: 07/26/2018 Status: COMPLETED Source: [place] 11:03 AM [facility] REPOSITORY HNO ID: [id number] Author: Chalo Helm (Zeetl) Service: (none) Author Type: (none) Type: Plan of Care Filed: 07/26/2018 11:03 AM Note Text: Pharmacy Discharge Medication Service: This patient has elected to receive their discharge prescriptions through the [facility] Bedside Prescription Delivery program. The prescriptions are currently being processed. A follow-up note will be entered once the prescriptions have been filled and delivered to the patient. Please contact me with any questions or updates to the patient's discharge medications. Chalo Helm (Zeetl) PLAN OF CARE Observed: 07/26/2018 Status: COMPLETED Source: [place] 11:03 AM [facility] REPOSITORY HNO ID: [id number] Author: Chalo Helm (Zeetl) Service: (none) Author Type: (none) Type: Plan of Care Filed: 07/26/2018 11:03 AM Note Text: BROTH MIXER BEDSIDE DELIVERY SURVEY 1. Patient to use [facility] Bedside Delivery - YES 2. If fax, patient would like us to fax prescriptions to Pharmacy of choice a. Pharmacy: b. Location: c. Phone: 3. Insurance card on file - YES 4. Credit card for payment - NO PROGRESS Observed: 07/26/2018 Status: COMPLETED Source: [place] 7:48 AM [facility] REPOSITORY HNO ID: [id number] Author: Addie Ross Service: Neurology Epilepsy Author Type: Resident Type: Progress Notes Filed: 07/26/2018 8:51 AM Note Text: NEUROLOGY EPILEPSY MONITORING UNIT (EMU) PROGRESS NOTE SERVICE DATE: 07/26/2018 SERVICE TIME: 7:49 AM Subjective No complaints. No seizures overnight. Home Anti Epileptic Drugs: KLP 0.5 TID PRN (uses prn muscle spasm) LCM 100 BID(by PCP) GBP 900 TID (uses for neuralgia) Anti Epileptic Drugs here: same Objective 07/25/18 1700 07/25/18 2238 07/26/18 0123 07/26/18 0538 BP: 118/71 102/66 113/66 99/59 Pulse: 78 66 68 69 Resp: 18 16 16 16 Temp: 37 ?C (98.6 ?F) 36.9 ?C (98.5 ?F) 36.8 ?C (98.2 ?F) 36.5 ?C (97.7 ?F) TempSrc: Oral Oral Oral Oral SpO2: 95% 96% 96% 95% Weight: 62.1 kg (136 lb 14.5 oz) EKG, Telemetry, EEG, Monitors AND Alarms are on: Yes ? Written order: Remains standing. Seizure detection software on: Yes ? photovoltaic testing technician has been notified: Yes ? turn machine operator has been notified: Yes EXAM: Mental Status: Alert and oriented to person, place and time. Able to follow 1 and 2 step commands. radiator tester: Pupils equal and reactive to light, extraocular muscles intact. No nystagmus, face symmetric. Motor: Moves all extremities equally. Sens: Intact to light touch. Exam otherwise unchanged. DATA: Diagnostic tests reviewed for today's visit: Most recent labs and imaging results. Assessment/Plan This is a 52 year old left?handed female who presents with a chief complaint of possible seizures. Past medical history includes migraines, remote history of PE in 2006 and 3 ischemic strokes, chronic pain in bones (PCP Dr. 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 Labs were checked, K was 3.3 and corrected. Repeat K 4.1 1. Continuous video-EEG monitoring to rule out seizure, EEG showed no epileptic discharges. 2. Continue Vimpat 100mg BID 3. Outpatient Cardiology follow up, appointment scheduled on 08/28/2018 with syncope clinic. 4. Ordered outpatient autonomic testing: QSART and tilt table. 4. 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 5. Vascular medicine appointment regarding her IVC filter on 08/23/2018. SIGNATURE: Addie Ross DO PATIENT NAME: Edgardo Denson DATE: July 26, 2018 TIME: 7:51 AM PAGER/CONTACT #: ? MRV BRAIN WO IVCON Observed: 07/25/2018 Status: F Source: [place] 6:19 PM [facility] REPOSITORY * * *Final Report* * * DATE OF EXAM: Jul 25 2018 6:19PM QBM [id number] - MRV BRAIN WO IVCON / PROCEDURE REASON: Vertigo, episodic * * * * Physician Interpretation * * * * EXAMINATION: MRI BRAIN WO/W IVCON, MRA BRAIN WO IVCON, MRV BRAIN WO IVCON CLINICAL HISTORY: Seizure, new, nontraumatic, >40 yrs TECHNIQUE: MR brain with diffusion and susceptibility weighted, sagittal T1, axial T2/FLAIR, coronal pre- and postcontrast T1, axial volumetric postcontrast T1, 3-D qujl-zo-jdkakp MRA of the intracranial circulation and 2-D dfqs-sk-gfrgaf MRV of the intracranial circulation without and with contrast. MQ: [id number] MR Contrast: Dotarem Contrast Dose: 13 cc Route of Administration: IV COMPARISON: CT brain 07/22/2018, 03/24/2018 RESULT: Acute Change: No evidence of an acute intracranial process. Hemorrhage: No evidence of prior parenchymal hemorrhage on the susceptibility weighted sequences. Mass Lesion/ Mass Effect: No evidence of an intracranial mass or extra-axial fluid collection. No abnormal parenchymal or leptomeningeal enhancement following contrast administration. No significant mass effect. Chronic Change: The white matter is within normal limits of signal intensity for age. Parenchyma: No significant parenchymal volume loss for age. Ventricles: Normal caliber and morphology. Skull Base: Hypothalamic and pituitary region are grossly normal. Craniocervical junction is normal. No significant marrow replacement process. Vasculature: Major intracranial arterial structures and dural venous sinuses show typical flow void, suggesting patency by spin echo criteria. Other: The paranasal sinuses and mastoid air cells are clear. The orbits and extracranial soft tissues are unremarkable. INTRACRANIAL MRA: Anterior circulation: Distal ICAs and visualized portions of the ACAs and MCAs are normal in caliber. Markedly atrophic left A1 segment. 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 The distal left vertebral artery terminates in a left PICA distribution with diminutive distal V4 segment to the vertebrobasilar junction. Distal right vertebral artery, remaining basilar trunk and permit agent are otherwise normal in caliber. Proximal SCAs, right AICA and PICAs are patent. Left AICA origin is not well visualized. No vessel cut off, significant focal narrowing or evidence of aneurysm in the visualized vessels. INTRACRANIAL MRV: Dural venous sinuses and major deep and superficial draining veins are patent, including basal veins, internal cerebral veins, straight sinus, superior sagittal sinus, sinus confluence, transverse and sigmoid sinuses and imaged portions of the internal jugular veins. IMPRESSION: No acute findings or abnormal intracranial enhancement. Age-appropriate normal brain. 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 Furniture Mover: TONI Transcribe Date/Time: Jul 25 2018 6:35P Dictated by : YRIS ALEXANDER MD This examination was interpreted and the report reviewed and electronically signed by: YRIS ALEXANDER MD on Jul 25 2018 6:50PM EST [id number] MRA BRAIN WO IVCON Observed: 07/25/2018 Status: F Source: [place] 6:19 PM [facility] REPOSITORY * * *Final Report* * * DATE OF EXAM: Jul 25 2018 6:19PM QBM [id number] - MRA BRAIN WO IVCON / PROCEDURE REASON: TIA, initial exam * * * * Physician Interpretation * * * * EXAMINATION: MRI BRAIN WO/W IVCON, MRA BRAIN WO IVCON, MRV BRAIN WO IVCON CLINICAL HISTORY: Seizure, new, nontraumatic, >40 yrs TECHNIQUE: MR brain with diffusion and susceptibility weighted, sagittal T1, axial T2/FLAIR, coronal pre- and postcontrast T1, axial volumetric postcontrast T1, 3-D ucwa-xh-xewqcy MRA of the intracranial circulation and 2-D hxzv-ys-lkncxs MRV of the intracranial circulation without and with contrast. MQ: [id number]_2 MR Contrast: Dotarem Contrast Dose: 13 cc Route of Administration: IV COMPARISON: CT brain 07/22/2018, 03/24/2018 RESULT: Acute Change: No evidence of an acute intracranial process. Hemorrhage: No evidence of prior parenchymal hemorrhage on the susceptibility weighted sequences. Mass Lesion/ Mass Effect: No evidence of an intracranial mass or extra-axial fluid collection. No abnormal parenchymal or leptomeningeal enhancement following contrast administration. No significant mass effect. Chronic Change: The white matter is within normal limits of signal intensity for age. Parenchyma: No significant parenchymal volume loss for age. Ventricles: Normal caliber and morphology. Skull Base: Hypothalamic and pituitary region are grossly normal. Craniocervical junction is normal. No significant marrow replacement process. Vasculature: Major intracranial arterial structures and dural venous sinuses show typical flow void, suggesting patency by spin echo criteria. Other: The paranasal sinuses and mastoid air cells are clear. The orbits and extracranial soft tissues are unremarkable. INTRACRANIAL MRA: Anterior circulation: Distal ICAs and visualized portions of the ACAs and MCAs are normal in caliber. Markedly atrophic left A1 segment. 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 The distal left vertebral artery terminates in a left PICA distribution with diminutive distal V4 segment to the vertebrobasilar junction. Distal right vertebral artery, remaining basilar trunk and permit agent are otherwise normal in caliber. Proximal SCAs, right AICA and PICAs are patent. Left AICA origin is not well visualized. No vessel cut off, significant focal narrowing or evidence of aneurysm in the visualized vessels. INTRACRANIAL MRV: Dural venous sinuses and major deep and superficial draining veins are patent, including basal veins, internal cerebral veins, straight sinus, superior sagittal sinus, sinus confluence, transverse and sigmoid sinuses and imaged portions of the internal jugular veins. IMPRESSION: No acute findings or abnormal intracranial enhancement. Age-appropriate normal brain. 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 Furniture Mover: [facility] Transcribe Date/Time: Jul 25 2018 6:35P Dictated by : YRIS ALEXANDER MD This examination was interpreted and the report reviewed and electronically signed by: YRIS ALEXANDER MD on Jul 25 2018 6:50PM EST [id number] MRI BRAIN WO/W Observed: 07/25/2018 Status: F Source: [place] IVCON 6:19 PM [facility] REPOSITORY * * *Final Report* * * DATE OF EXAM: Jul 25 2018 6:19PM QBM [id number] - MRI BRAIN WO/W IVCON / PROCEDURE REASON: Seizure, new, nontraumatic, >40 yrs * * * * Physician Interpretation * * * * EXAMINATION: MRI BRAIN WO/W IVCON, MRA BRAIN WO IVCON, MRV BRAIN WO IVCON CLINICAL HISTORY: Seizure, new, nontraumatic, >40 yrs TECHNIQUE: MR brain with diffusion and susceptibility weighted, sagittal T1, axial T2/FLAIR, coronal pre- and postcontrast T1, axial volumetric postcontrast T1, 3-D odwz-pi-skokns MRA of the intracranial circulation and 2-D vamp-ad-adtalq MRV of the intracranial circulation without and with contrast. MQ: [id number] MR Contrast: Dotarem Contrast Dose: 13 cc Route of Administration: IV COMPARISON: CT brain 07/22/2018, 03/24/2018 RESULT: Acute Change: No evidence of an acute intracranial process. Hemorrhage: No evidence of prior parenchymal hemorrhage on the susceptibility weighted sequences. Mass Lesion/ Mass Effect: No evidence of an intracranial mass or extra-axial fluid collection. No abnormal parenchymal or leptomeningeal enhancement following contrast administration. No significant mass effect. Chronic Change: The white matter is within normal limits of signal intensity for age. Parenchyma: No significant parenchymal volume loss for age. Ventricles: Normal caliber and morphology. Skull Base: Hypothalamic and pituitary region are grossly normal. Craniocervical junction is normal. No significant marrow replacement process. Vasculature: Major intracranial arterial structures and dural venous sinuses show typical flow void, suggesting patency by spin echo criteria. Other: The paranasal sinuses and mastoid air cells are clear. The orbits and extracranial soft tissues are unremarkable. INTRACRANIAL MRA: Anterior circulation: Distal ICAs and visualized portions of the ACAs and MCAs are normal in caliber. Markedly atrophic left A1 segment. 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 The distal left vertebral artery terminates in a left PICA distribution with diminutive distal V4 segment to the vertebrobasilar junction. Distal right vertebral artery, remaining basilar trunk and permit agent are otherwise normal in caliber. Proximal SCAs, right AICA and PICAs are patent. Left AICA origin is not well visualized. No vessel cut off, significant focal narrowing or evidence of aneurysm in the visualized vessels. INTRACRANIAL MRV: Dural venous sinuses and major deep and superficial draining veins are patent, including basal veins, internal cerebral veins, straight sinus, superior sagittal sinus, sinus confluence, transverse and sigmoid sinuses and imaged portions of the internal jugular veins. IMPRESSION: No acute findings or abnormal intracranial enhancement. Age-appropriate normal brain. 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 Furniture Mover: [facility] Transcribe Date/Time: Jul 25 2018 6:35P Dictated by : YRIS ALEXANDER MD This examination was interpreted and the report reviewed and electronically signed by: YRIS ALEXANDER MD on Jul 25 2018 6:50PM EST [id number] ALLIED HEALTH Observed: 07/25/2018 Status: COMPLETED Source: [place] 5:50 PM [facility] REPOSITORY HNO ID: [id number] Author: Luann CHANG Service: (none) Author Type: (none) Type: Allied Health Filed: 07/25/2018 5:50 PM Note Text: Radiology Service Progress Note PATIENT NAME: Edgardo Denson DATE OF SERVICE: July 25, 2018 TIME: 5:50 PM PATIENT IDENTITY VERIFICATION COMPLETED USING TWO (2) METHODS: Patient confirmed name verbally and ID band matches.. PATIENT GENDER DATA: Female. status: : No status: NO. PATIENT RELEVANT IMPLANT DATA REVIEWED: Yes RADIOLOGY DEPARTMENT: MR; Exam(s) Completed: Head: Routine Brain [place] MRA Sagittal Sinus MRV PERIPHERAL IV DATA: Inpatient: see LDA documentation SIGNED BY: Luann CHANG July 25, 2018 5:50 PM NURSING PROG Observed: 07/25/2018 Status: COMPLETED Source: [place] 5:39 PM [facility] REPOSITORY HNO ID: [id number] Author: Ashlee OliverosRn) ABIODUN Ellis Service: Radiology Author Type: Registered Nurse Type: Nursing Progress Note Filed: 07/25/2018 5:40 PM Note Text: Radiology Service Progress Note PATIENT NAME: Edgardo Denson DATE OF SERVICE: July 25, 2018 TIME: 5:39 PM PATIENT WEIGHT: 140 LBS PATIENT IDENTITY VERIFICATION COMPLETED USING TWO (2) METHODS: Patient confirmed name verbally and ID band matches.. PATIENT GENDER DATA: Female. status: : No status: NO. CONTRAST INDUCED NEPHROPATHY RISK FACTORS: Not applicable CREATININE: Creatinine Date Value Ref Range Status 07/25/2018 0.70 0.58 - 0.96 mg/dL Final 07/23/2018 0.60 0.58 - 0.96 mg/dL Final 07/05/2018 0.80 0.58 - 0.96 mg/dL Final eGFR-All Other Races Date Value Ref Range Status 07/25/2018 >60 . Final Comment: eGFR (Estimated GFR) Units of measure: mL/min/1.73 meters squared eGFR is derived from the reexpressed MDRD Study equation using the following parameters: serum creatinine, age, gender and race. The creatinine assay has been calibrated to be traceable to IDMS. An eGFR <60 mL/min/1.73m2 for >3 months is consistent with chronic kidney disease. Refer to KDOQI guidelines for clinical interpretation. In patients with unstable renal function, e.g. those with acute kidney injury, the eGFR may not accurately reflect actual GFR. eGFR- Date Value Ref Range Status 07/25/2018 >60 Final P.O.C.T. RESULTS: N/A July 25, 2018 TREATMENT: No Hydration needed. ALLERGIES: Reviewed and unchanged CONTRAST ALLERGY: NO. IV SITE: Inpatient - refer to LDA documentation IV SITE APPEARANCE: Clean,Dry and Intact SIGNED BY: Ashlee Ellis RN July 25, 2018 5:39 PM NUTRITION Observed: 07/25/2018 Status: COMPLETED Source: [place] 3:56 PM [facility] [place] REPOSITORY O ID: [id number] Author: Thaddeus Espana Service: Nutrition Therapy Author Type: Registered Dietitian Type: Nutrition Filed: 07/25/2018 4:09 PM Note Text: NUTRITION THERAPY SCREENING NOTE SERVICE DATE: 07/25/2018 SERVICE TIME: 3:00 PM NUTRITION CARE PLAN Patient's weight is stable and nutritional intake is adequate. Patient is not at risk for malnutrition at this time. Intervention: 1. Continue regular diet 2. Discussed briefly gastritis trigger foods (multiple seen at bedside), continue PPI per primary 3. Trend lytes, replacement PRN per primary, 20 mEq KCl replacement three x weekly per OCT 4. Recommend Vitamin B12 level check, historical deficiency, historical supplement inconsistency Discharge Nutrition Recommendations: Diet: Regular Per HPI: This is a 52 year old left?handed female who presents with a chief complaint of abnormal lab value told by her PCP. Patient is unclear what is the abnormal lab was, called her daughter who is also unclear what is the lab, but she remember PCP said something like her K is low, but PCP is calling ambulance to send her to hospital. She is then transferred from [facility] to us for further evaluation of her seizure like episodes which she had evaluation in EMU and seizure was rule out. ? Past medical history includes migraines, remote history of PE in 2006 and 3 ischemic strokes, chronic pain in bones (PCP Dr. 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 She describes grand mal seizures that began in 1999 and have occurred with unclear frequency. She also reports episodes of going out in which she loses awareness without warning, is unresponsive for 45 min- 1 hr, then awakes with confusion. Last episode was but pt cannot specify the frequency of these episodes. She estimates frequency to be >1 per week. Also describes passing out occasionally which improved with Vimpat. PAST MEDICAL HISTORY Diagnosis Date - Asthma - Cellulitis and abscess of leg, except foot 03/01/2007 Orig Leg issue 1996 - Chronic pain syndrome 05/27/2008 Post-herpetic Neuralgia - Depression, reactive - DJD (degenerative joint disease), cervical - Esophageal reflux Hemorrhagic gastritis / hx GI - Headache - Muscle spasm BZD - Other convulsions 02/25/2009 - PE (pulmonary embolism) 07/2006 - PMH - PAST MEDICAL HISTORY OF 07/19/2005 h/o right leg DVT, PE, s/p IVC filter - PMH - PAST MEDICAL HISTORY OF 2005 h/o Osteomyelitis infection - Sleep disturbance, unspecified sleep study 12/21 didn't show sleep apnea but some central apneas - Syncope Dr. 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 Pt however very tangential in speech and focused primarily on pain abnormalities. States that she has not been managed for years and attributes this to abrupt change in PCP. Reports historical visits with pain management but does not find them currently helpful. States that this has impacted her day to day functionality.Pain management offered as outpatient during previous admission. Pt however later in interview when questioning about shopping/meal preparation ability denies any difficulty and states that she is not a prisoner. Reports historical gastritis as well which she states recurred a few days after last hospital D/C on 07/07/18.Reports brief period of vomiting which has since resolved. Progressive weight gain per EPIC observed which pt confirms. TSH checked during previous admission and WNL. Wants to improve functionality as a means to reduce weight further. Anthropometrics: Height: Admission Weight: 63.6 kg (140 lb 3.4 oz) Current Weight: 63.6 kg (140 lb 3.4 oz) Body mass index is 24.07 kg/m?. normal Weight has increased by 8.3 kg over 1 years representing 15% weight change Last Wt 07/25/18 : 63.6 kg (140 lb 3.4 oz) 06/29/18 : 60.9 kg (134 lb 3.2 oz) 06/12/18 : 60.1 kg (132 lb 6.4 oz) 06/02/18 : 59.9 kg (132 lb) 05/25/18 : 60.8 kg (134 lb) 05/24/18 : 60.3 kg (132 lb 14.4 oz) 04/28/18 : 60.9 kg (134 lb 4.8 oz) 04/06/18 : 60.8 kg (134 lb) 03/27/18 : 60.8 kg (134 lb) 01/02/18 : 56.2 kg (124 lb) 12/21/17 : 53.5 kg (118 lb) 12/02/17 : 57.6 kg (127 lb) 11/23/17 : 54 kg (119 lb) 11/12/17 : 53.5 kg (118 lb) 10/31/17 : 54.4 kg (120 lb) 10/06/17 : 54.4 kg (120 lb) 09/05/17 : 52.2 kg (115 lb) 08/31/17 : 53.5 kg (118 lb) 08/18/17 : 52.2 kg (115 lb) 07/27/17 : 55.3 kg (122 lb) Recent Labs 07/25/18 1149 07/23/18 1131 GLUC 106* 91 BUN 6* 8 CREAT 0.70 0.60 NA 143 144 K 4.1 3.3* CHLOR 104 107* CO2 24 26 ALB -- 3.3* HB -- 11.3* HCT -- 33.7* WBC -- 5.11 Ref. Range 06/29/2018 18:50 TSH Latest Ref Range: 0.400 - 5.500 uU/mL 2.690 MNT Billing Type: Initial Assess/15 min 2 units SIGNATURE: Thaddeus Espana RD PATIENT NAME: Edgardo Denson DATE: July 25, 2018 TIME: 3:56 PM PAGER: [phone] BASIC METABOLIC PANL Collected: 07/25/2018 Status: F Source: [place] 11:49 AM [facility] [place] REPOSITORY TYPE CODE TESTS RESULT OUT OF REFERENCE UNITS RANGE LAB GLU 74-99 mg/dL High Glucose 106 Result Comment: The [place] [employer] (ADA) provides guidance for cutoff values for fasting glucose and random glucose. The ADA defines fasting as no caloric intake for at least 8 hours. Fas ting plasma glucose results between 100 to 125 mg/dL indicate increased risk for diabetes (prediabetes). Fasting plasma glucose results greater than or equal to 126 mg/dL meet the criteria for diagnosis of diabetes. In the absence of unequivocal hyperglycemia, results should be confirmed by repeat testing. In a patient with classic symptoms of hyperglycemia or hyperglycemic crisis, random plasma glucose results greater than or equal to 200 mg/dL meet the criteria for diagnosis of diabetes. Reference: Standards of Medical Care in Diabetes 2016, [place] [employer] Association. Diabetes Care. 2016.39(Suppl 1). LAB BUN 7-21 mg/dL BUN Low 6 LAB CRET 0.58-0.96 mg/dL Creatinine 0.70 LAB NA 136-144 mmol/L Sodium 143 LAB K 3.7-5.1 mmol/L Potassium 4.1 LAB CL 97-105 mmol/L Chloride 104 LAB CO2 22-30 mmol/L CO2 24 LAB AGAP 9-18 mmol/L Anion Gap 15 LAB CA 8.5-10.2 mg/dL Calcium, Total 9.3 LAB GFRAA eGFR- Amer. >60 LAB GFRNAA . eGFR-All Other Races >60 Result Comment: eGFR (Estimated GFR) Units of measure: mL/min/1.73 meters squared eGFR is derived from the reexpressed MDRD Study equation using the following parameters: serum creatinine, age, gender and race. The creatinine assay has been calibrated to be traceable to IDMS. An eGFR <60 mL/min/1.73m2 for >3 months is consistent with chronic kidney disease. Refer to KDOQI guidelines for clinical interpretation. In patients with unstable renal function, e.g. those with acute kidney injury, the eGFR may not accurately reflect actual GFR. Performed By: #### BMP #### [facility] [address] [place], [place] [address] NURSING PROG Observed: 07/25/2018 Status: COMPLETED Source: [place] 10:19 AM [facility] REPOSITORY HNO ID: [id number] Author: Bronwyn OliverosRn) ABIODUN Carroll Service: Nursing Author Type: Registered Nurse Type: Nursing Progress Note Filed: 07/25/2018 5:15 PM Note Text: Nursing Progress Note Patient Name: Edgardo Denson Patient Location: [place] [id number]/H060[facility] Daily Note: Pt is non-compliant with unit protocol and procedures, which includes using the call light when trying to get out of bed or chair, pt is turning off bed alarm and non-compliant with instructions. Pt keeps removing tele, education provided, Epilepsy internal salesperson notified, no new orders at this time. This note was completed by: Bronwyn Carroll RN CASE MANAGEM Observed: 07/25/2018 Status: COMPLETED Source: [place] 9:18 AM [facility] REPOSITORY HNO ID: [id number] Author: Emmy Haines (Sw) Service: Care Management Author Type: Asphalt Paver Type: Care Mgt Progress Note Filed: 07/25/2018 9:21 AM Note Text: CARE MANAGEMENT PROGRESS NOTE SERVICE DATE: 07/25/2018 SERVICE TIME: 9:15pm LOS: 1 day Pt remains on BEM to rule out seizure. MRI, MRA and MRV to rule out new lesions. Outpatient Cardiology follow up. D/C timeframe TBD. No PT/OT. Pt currently has no PAC skilled needs identified. Pt to d/c home via family auto. Floor CM to continue to follow. For any questions or concerns please contact the BEV listed below. SIGNATURE: CHARITO Potter PATIENT NAME: Edgardo Denson DATE: July 25, 2018 TIME: 9:18 AM PAGER/CONTACT #: [phone] PROGRESS Observed: 07/25/2018 Status: COMPLETED Source: [place] 8:25 AM [facility] REPOSITORY O ID: [id number] Author: Malcolm West Service: Neurology Epilepsy Author Type: Physician Type: Progress Notes Filed: 07/25/2018 1:43 PM Note Text: NEUROLOGY EPILEPSY MONITORING UNIT (EMU) PROGRESS NOTE SERVICE DATE: 07/25/2018 SERVICE TIME: 8:42 AM Subjective No complaints. No seizures overnight. Home Anti Epileptic Drugs: KLP 0.5 TID PRN (uses prn muscle spasm) LCM 100 BID(by PCP) GBP 900 TID (uses for neuralgia) Anti Epileptic Drugs here: same Objective 07/24/18 2133 07/25/18 0200 07/25/18 0500 07/25/18 0600 BP: 108/93 98/63 104/60 Pulse: 88 64 60 Resp: 16 18 Temp: 36.7 ?C (98.1 ?F) 36.6 ?C (97.9 ?F) 36.6 ?C (97.9 ?F) TempSrc: Oral Oral Oral SpO2: 95% 95% 97% Weight: 63.6 kg (140 lb 3.4 oz) EKG, Telemetry, EEG, Monitors AND Alarms are on: Yes ? Written order: Remains standing. Seizure detection software on: Yes ? photovoltaic testing technician has been notified: Yes ? turn machine operator has been notified: Yes EXAM: Mental Status: Alert and oriented to person, place and time. Able to follow 1 and 2 step commands. radiator tester: Pupils equal and reactive to light, extraocular muscles intact. No nystagmus, face symmetric. Motor: Moves all extremities equally. Sens: Intact to light touch. Exam otherwise unchanged. DATA: Diagnostic tests reviewed for today's visit: Most recent labs and imaging results. Assessment/Plan This is a 52 year old left?handed female who presents with a chief complaint of possible seizures. Past medical history includes migraines, remote history of PE in 2006 and 3 ischemic strokes, chronic pain in bones (PCP Dr. 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 Labs were checked, K was 3.3 and corrected. 1. Continuous video-EEG monitoring to rule out seizure 2. Continue Vimpat 100mg BID 3. Outpatient Cardiology follow up 4. MRI, MRA and MRV to rule out new lesions. 5. Orthostatic vitals 6. Repeat BMP SIGNATURE: Addie DO Cody PATIENT NAME: Edgardo Denson DATE: July 25, 2018 TIME: 8:26 AM PAGER/CONTACT #: EPILEPSY STAFF NOTE ? Patient: Edgarod Denson ? [facility] STAFF PHYSICIAN NOTE OF PERSONAL INVOLVEMENT IN CARE ? I have reviewed the history and physical examination obtained and documented by the resident and I personally participated in the mejias components. I have discussed the case and management of the patient's care. The following comments revise or confirm relevant mejias components of the note. ? IMPRESSION: This is a 52 year old admitted with a history of strokes and possible seizures since 1999 presents with episodes of unclear etiology. She states she has had vomiting and diarrhea for several days and had lab work by her PCP. Her doctor called her to go to the hospital and she went to [facility] ([facility]). She was then transferred to [facility] for what she states should be a work up for TIAs. She was told she would get an ultrasound of her carotids at [facility]. She is concerned she is having strokes given her history. She was in the EMU in June 2018 and had a normal EEG with some paroxysmal events, but her typical event was not captured. BEM: Classification ? Normal (Awake, Sleep, 10-20 Scalp Electrodes, Anterior temporal ? electrodes, Standard electrodes) ? 1 ? ?EEG: No EEG Change ?Seizure: Paroxysmal Event Impression ? Continuous video-EEG monitoring was reviewed from 0504 on 07/24/18 to ? 0504 on 07/25/18 and is within normal limits. No epileptiform discharges ? or EEG seizures were recorded. ? There were several event button presses by patient for episodes of ? double vision. No EEG changes were seen at these times to suggest ? seizure. ? PLAN: - Continue Video EEG ? - MRI/MRA/MRV brain scheduled for today as part stroke work up. - Continue video EEG monitoring ? - Cardiology consult as outpatient - Out-patient tilt-table test ? Care Coordination The majority of the visit was spent counseling and/or coordinating care for the patient. [id number] time was 45 minutes. Malcolm West MD July 25, 2018 1:41 PM ? NURSING PROG Observed: 07/24/2018 Status: COMPLETED Source: [place] 9:00 PM [facility] REPOSITORY HNO ID: [id number] Author: Shruthi Alcantar) ABIODUN Aceves Service: (none) Author Type: Registered Nurse Type: Nursing Progress Note Filed: 07/25/2018 6:23 AM Note Text: Problem(s) / Intervention(s) PATIENT NAME: Edgardo Denson The patient admitted to turning her bed alarm off after staff turns it on. Pt gets OOB by herself and walks to bathroom as well as was walking over to her roommates side of the room. Pt is on seizure precautions and is on the BEM. The following intervention(s) were initiated :Pt was educated multiple times on not getting OOB by herself due to safety reasons. Pt also was educated on not turning off her bed alarm. Pt was informed that her behavior is classified as being non-compliant with her admission and plan of care. Pt not concerned. Team aware of her behavior. The following observation(s) were made: Will continue to encourage pt to be compliant with plan of care. Will continue to check bed alarm and turn it back on when pt turns it off. . This note was completed by: Shruthi Aceves RN CASE MGT INIT Observed: 07/24/2018 Status: COMPLETED Source: [facility] 1:34 PM [facility] REPOSITORY HNO ID: [id number] Author: Emmy Haines (Sw) Service: Care Management Author Type: Asphalt Paver Type: Care Mgt Initial Assessment Filed: 07/24/2018 1:41 PM Note Text: CARE MANAGEMENT: ASSESSMENT AND DISCHARGE PLAN SERVICE DATE: 07/24/2018 SERVICE TIME: 11:00am PRIMARY CARE PHYSICIAN: Ryan Castano MD ADMISSION STATUS: Observation Needs Prior to Discharge: To Be Determined MEDICAL: Patient/Back Line Cook Stated Goals: To have reduction in pain To have reduction in symptoms Health Insurance: MEDICARE A AND B Medicare Health Issues Impacting Discharge Plan: Uncontrolled Convulsions and Chronic pain syndrome Last Admission Date: Previous admit date: 06/29/2018 Is this Within the Past 30 days? Yes Is This a Planned Readmission? No: Recurrent symptoms of underlying disease Followed Up with Appointment Prior to Admission: Patient scheduled, but readmitted prior Where Did the Patient Come From? Home Intervention Taken to Avoid Future Readmission? Medical and transitional planning Advance Directive: Current Advance Directive: None Plastic Top Assembler Attempted to Assist with AD Completion: Yes Action: Patient Unwilling;Education Provided Health Literacy: 1. How often do you need to have someone help you when you read instructions, pamphlets, or other written material from your doctor or pharmacy? Never - 1 2. How confident are you filling out medical forms by yourself? Extremely - 1 If Patient scores > 3 on either question, the following interventions were put into place: Patient did not score > 3 FUNCTIONAL AND COGNITIVE/BEHAVIORAL PRIOR TO ADMISSION: Baseline Mental Status: Alert AND Oriented, Person, Place , Time and Situation Functional Status: Independent Does Patient Currently Receive Any Community Services or Home Care? None Equipment Prior to Admission: None Has the Patient Been in a Senior Care Facility in the Past 30 days? No SOCIAL: Living Arrangement: Home Lives With: Daughter Financial Resources: Disabled Primary Contact: Extended Emergency Contact Information Primary Emergency Contact: Lindsey Denson Address: [address] [place] [address] Mobile Relation: Daughter Supportive: Yes Other Important Patient Contacts: None Caregiver Assessment: Caregiver is ready, willing and able to meet the patient's needs as recommended by the inter-professional team? No Caregiver Needed Patient's transition needs and plan for meeting these needs: Pt anticipated to d/c home with no PAC skilled needs identified Does the patient have an acute stroke diagnosis, or has the patient had a stroke during this admission? No Medication Adherence: I am convinced of the importance of my prescription medication: Agree completely - 0 I worry that my prescription medication will do more harm than good to me Disagree completely - 0 I feel financially burdened by my [id number] expenses for my prescription medication: Disagree completely - 0 Patient is categorized as low risk < 2 Are you interested in bedside delivery of your medications? Yes Food Concerns: In the Last Month, Have You had Trouble Getting Food? No trouble getting food During the Last Month, Have You Worried Whether Your Food Would Run Out Before You Had Enough Money to Buy More? No Is the Patient Psychosocially Complex? No ASSESSMENT AND PLAN: Medical Needs: 2 or more chronic diseases Psychosocial Needs: None FREEDOM OF CHOICE EXPLAINED: N/A POTENTIAL TRANSITION PLANS No Services Indicated Pt admitted from home, dx convulsions. On BEM for seizure rule out. Cardiology to eval for possible syncopal episodes. Pt was tangential historian. Pt reported that she lives with her DTR but later stated that she lives alone in an hotel alone. Has d/c transportation home via DTR. Pt reports being independent RESIDENT CARE COORDINATOR. Pt reports chronic pain and that she was previously followed by a Pain Management provider in the past. Pt reports that her recent provider cut her pain meds significantly which negatively impacted her quality of life. Pt denies any substance abuse hx. Medical course TBD pending Cardiology recs. Floor CM to continue to follow. For any questions or concerns please contact the SW listed below. SIGNATURE: CHARITO Potter PATIENT NAME: Edgardo Denson DATE: July 24, 2018 TIME: 1:34 PM PAGER/CONTACT #: [phone] CNDS Observed: 07/24/2018 Status: COMPLETED Source: [place] 11:41 AM [facility] REPOSITORY HNO ID: [id number] Author: Addie Duenas) Cody Service: Neurology Epilepsy Author Type: Resident Type: Discharge Summaries Filed: 07/26/2018 5:06 PM Note Text: Epilepsy Staff: Reviewed below and agree. Of note, on the day of discharge, patient reported that all her home medications were sent to storage by mistake by one of her friends, as part of an already planned changing homes, while she was in EMU from 06/29/18 to 07/11/18. She is not aware of the box that they are in currently at the storage facility. She reported that she was w/o medications and was particularly miserable after discharge because of not taking her Klonopin and Percocet. PDMP was checked (below) followed by call to the pharmacy. They confirmed that her Percocet was filled on 07/06/18 (while she ws in- patient in EMU) and Klonopin was filled on 07/15/18. They also confirmed past issues that patient has had with controlled substance, Patient was refusing to be discharged if not given Klonopin and Percocet refill. When confronted with the PDMP and pharamacy information, patient reported that her Percocet was refilled in her absence by her daughter (which is now in storage) and then she remembered that she does actually have Klonopin at home, which she refilled after EMU discharge. She reports that she has a prescription for Percocet refill for 08/05/18/. She has been taking 2-3 Percocet tablets as needed while in- patient. We will give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 impression read, Blunting of the left costophrenic angle may represent a small pleural effusion with associated atelectasis.?The right lung is free of focal consolidation. ?There is no pneumothorax. Dr. Dodge spoke with the interpreting doctor, Leandro Mullen MD, who told her no rib fracture was seen. IM was consulted again on 07/07 at patient's request. IM viewed the CXR and did not think effusion or atelectasis were present. PE workup was negative. IM recommended scheduled tylenol for likely musculoskeletal pain. Patient complained of several different issues while she has been here. Despite consulting medicine and ruling out all serious conditions - IA, PE etc she continues to complain of pain and is reluctant to leave. We offered outpatient pain management. ? Seizure Report: 1E on 06/30 - Disoriented and dizzy. 2E on 07/02 - Pt unable to recall event, opened eyes and was confused. When this nurse attempted to wake patient, pt unresponsive and did not respond to sternal rub. Within a minute or so, patient woke up and was confused regarding event. 3E on 07/04 - dizzy ? Of note, Patient also refused to be discharged and had a prolonged hospital course during last admission without any active medical issue due to refusal to be discharged and came up with non-specific new complains daily. Patient's daughter lives 4 hours away without phone application trainer, who refuse to take care of patient. Patient appeals with her medicaid and refused to be discharge when discharged ready and eventually was escorted out by Police on 07/07. SEIZURE DESCRIPTION Seizure Type A: grand mal Triggers: none Improved with vancomycin. Duration: unclear a pretty long time TB/UI: none Aura: just didn't feel right Ictal: If driving, could chute puller to a safe spot. Witness: Full body spasms, eyes rolled back, unresponsive Post-ictal: Confusion, colors different/not normal, doesn't know where she was. Sometimes combative. Frequency: unknown, but more under control. Injuries: ED visits/hospitalizations for seizures: Change in semiology over time: Change in seizures with medications: Vimpat Onset: 1999 at a wedding (no alcohol) and got extremely sick, started driving home and ended up somewhere in [place]. Was very scared afterward. Last seizure: unclear, but >6 months ago ? Seizure Type B: going out syncope? Triggers: none Aura: none Ictal: I'm down without warning. Does not wake up to sternal rub, etc, from family members. Unresponsive. No shaking. Usually no injuries since it's usually on carpeted floor. Sometimes, they can be be mistaken as me sleeping and people don't realize she is having one. Postictal: none. Woke up and though, how did I get here. Duration: 45 min - 1 hr Frequency: varies, difficult to know since she doesn't know when she's had them Last seizure: twice yesterday Onset: 2016 after ammonia levels started going up. Happened twice yesterday. ? Home AEDS: KLP 0.5 TID PRN (uses prn muscle spasm) LCM 100 BID(by PCP) GBP 900 TID (uses for neuralgia) Mood: On Effexor for depression PREVIOUS EVALUATIONS: EEG 06/29-07/08/2018 EEG Classification Normal (Awake, Sleep, 10-20 Scalp Electrodes, Anterior temporal electrodes) ? 1 ? ?EEG: No EEG Change ?Seizure: Paroxysmal Event This 10-day video EEG evaluation from 06/29/18 to 07/08/18 was inconclusive as not all typical events were captured. Interictal EEG showed no epileptiform discharges. EEG Long ([facility], 05/24/18): normal ? Routine EEG ([facility], 03/22/16): Abnormal II (Awake, 10-20 Scalp Electrodes, Anterior temporal ? electrodes) ? 1 ? ?Background Slow ? 2 ? ?Continuous Slow, Generalized, Maximum left temporo-parietal Impression ? This EEG shows evidence of bilateral cotical dysfunction with maximum in ? the left temporo-parietal region. There is also evidence of a moderate ? diffuse encephalopathy. No epileptiform discharges or EEG seizures were ? seen. ? PSG/EEG (12/29/2009): IMPRESSION: 1. Normal overnight EEG. There were no epileptiform discharges or seizures recorded. 2. Severe sleep apnea syndrome. Respiratory events were central in nature and associated with oxygen desaturations (shauna of 78% on room air). This could possibly be due to pain medication effect (Oxycodone). Due to apnea severity, the scheduled MSLT was cancelled. 3. Abnormal sleep architecture likely due to respiratory events and first night effect. ? ? CT Brain wo ([facility], 03/24/18): Age-appropriate stable and unremarkable head CT. ? MRI/MRA Brain wo ([facility], 05/16/16): No acute intracranial findings. ?Normal morphology and signal intensity of the brain parenchyma. No large vessel occlusion, significant focal narrowing, or aneurysm on intracranial [id number] MRA. 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 ? MRI brain (02/25/2015, [facility]): NO ACUTE INFARCT. NORMAL BRAIN PARENCHYMA. RECENT CT FINDINGS RESULT OF ARTIFACT. PERSISTENT TRIGEMINAL ARTERY. ? MRI brain (09/06/2013, [facility]): No acute findings. ?Brain parenchyma shows normal signal and morphology for age. Incidental persistent trigeminal artery, connecting right ICA with basilar artery. ?This represents an arterial anatomic variant RISK FACTORS FOR SEIZURES: 1. Head Trauma (I'm sure I did but I would shake it off. 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 I learned to rationalize a lot.) 2. 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 Family History of Seizures (No) 4. Developmental Delay (No) 5. Febrile Seizures (No) 6. SOCIAL MEDIA MARKETING MANAGER Tumors (No) 7. SOCIAL MEDIA MARKETING MANAGER Vascular Disease (Yes, per patient) 8. Significant Medical History (Yes, see below). No current facility-administered medications for this encounter. Current Outpatient Prescriptions: gabapentin (NEURONTIN) 300 mg capsule take 3 capsules by mouth three times a day venlafaxine ER (EFFEXOR XR) 150 mg 24 hr capsule Take 2 capsules by mouth once daily. clonazePAM (KLONOPIN) 0.5 mg tablet Take 1 tablet by mouth three times daily as needed for up to 90 days. dabigatran etexilate (PRADAXA) 150 mg cap Take 1 capsule by mouth twice daily. [START ON 08/04/2018] oxyCODONE-acetaminophen (PERCOCET) 5- 325 mg tablet 1 po q4h prn breakthrough pain (MAXIMUM 5 pills/day)Earliest Fill Date: 08/04/18 promethazine (PHENERGAN) 25 mg tablet Take 1 tablet by mouth every 8 hours as needed. fluticasone-salmeterol (ADVAIR DISKUS) 500-50 mcg/dose dsdv Inhale 1 Puff as instructed twice daily. RINSE AND GARGLE MOUTH WITH WATER AFTER EACH USE. levalbuterol tartrate HFA (XOPENEX HFA) 45 mcg/actuation inhaler Inhale 1-2 Puffs as instructed every 4 hours as needed for Wheezing/Shortness of Breath. spironolactone (ALDACTONE) 25 mg tablet Take 1 tablet by mouth once daily as needed. Takes as needed potassium chloride 20 mEq TbER Take 1 tablet by mouth every Tuesday,Tuesday,Tuesday. COMPOUNDED PRESCRIPTION Low Dose Naltrexone2 mg capsule (do not use calcium filler)Take one capsule by mouth at 9:00 PM every night lacosamide (VIMPAT) 100 mg tab Take 1 tablet by mouth twice daily for 30 days. dicyclomine (BENTYL) 20 mg tablet Take 1 tablet by mouth four times daily. omeprazole (PRILOSEC) 20 mg capsule Take 1 capsule by mouth once daily. loperamide (IMODIUM) 2 mg cap(s) Take 1 capsule by mouth as needed for Diarrhea. Cetirizine (ZYRTEC) 10 mg cap Take by mouth once daily. ergocalciferol, vitamin D2, (DRISDOL) 50,000 unit capsule Take 1 capsule by mouth every Tuesday. Indications: VITAMIN D DEFICIENCY ALLERGIES Allergen Reactions - Cellacefate Swelling - Depakote [Divalproe* GI Upset - Dilantin [Phenytoin* GI Upset - Divalproex Other: See Comments Abdominal pain - Fish Containing Pro* Unknown - Penicillin Swelling - Penicillin G GI Upset tolerates zosyn . sdm. 03/2007 TOLERATES KEFLEX 11-12-10 - Shrimp Unknown - Sulfa (Sulfonamide * GI Upset Gastritis - Sulfamethoxazole-Tr* Unknown - Topamax [Topiramate] Mental Status Change - Haldol [Haloperidol] Mental Status Change, Cough, GI Upset, Itching The patient's side effects to the current medications are None. 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: LCM, GBP, KLP, LEV, TPM, VPA, PHT PAST MEDICAL HISTORY Diagnosis Date - Asthma - Cellulitis and abscess of leg, except foot 03/01/2007 Orig Leg issue 1996 - Chronic pain syndrome 05/27/2008 Post-herpetic Neuralgia - Depression, reactive - DJD (degenerative joint disease), cervical - Esophageal reflux Hemorrhagic gastritis / hx GI - Headache - Muscle spasm BZD - Other convulsions 02/25/2009 - PE (pulmonary embolism) 07/2006 - PMH - PAST MEDICAL HISTORY OF 07/19/2005 h/o right leg DVT, PE, s/p IVC filter - PMH - PAST MEDICAL HISTORY OF 2005 h/o Osteomyelitis infection - Sleep disturbance, unspecified sleep study 12/21 didn't show sleep apnea but some central apneas - Syncope Dr. Rae / [place] - Tobacco use disorder - Tubulovillous adenoma of colon 2008 Sigmoid PAST SURGICAL HISTORY Procedure Laterality Date - DELIVERY ONLY , low transverse - COLONOSCOP W/ OR W/O BRSH SPEC Colonoscopy - EGD W/O OR W/BRUSH/WASH EGD - LAPAROSCOPIC CHOLEYCYSTECTOMY Cholecystectomy, lap - PAST SURGICAL HISTORY OF 07/20 s/p IVC filter by Dr. Mcpherson - PAST SURGICAL HISTORY OF leg debridements for MRSA FAMILY HISTORY Problem Relation Age of Onset - Ischemic Heart Disease Mother - Stroke Mother - Diabetes Father - other (renal cell cancer) Father Testical cancer, primary renal cancer - other (testicular cancer) Father - Lipids Sister - Lipids Brother - Colon Cancer Paternal Grandmother - other (stomach cancer) Paternal Grandmother - Breast Cancer No Family History Social History Marital status: Spouse name: Years of education: Number of children: 1 Occupational History Occupation Employer Comment [employer]* Social History Main Topics Smoking status: Current Every Day Smoker Packs/day: 0.50 Years: 12.00 Types: Cigarettes Smokeless tobacco: Never Used Comment: Currently smokes two cigarettes a day Alcohol use: No Drug use: No Sexual activity: Not Currently Social History Narrative Lives w/ dtr Objective REVIEW OF SYSTEMS: PAIN ASSESSMENT: Negative for pain, history of chronic pain, or current treatment for a chronic pain condition. GENERAL: No weight loss, malaise or fevers HEENT: Negative for frequent or significant headaches, No changes in hearing or vision, no nose bleeds or other nasal problems NECK: Negative for lumps, goiter, pain and significant neck swelling RESPIRATORY: Negative for cough, hemoptysis, wheezing, COPD, dyspnea or shortness of breath CARDIOVASCULAR: Negative for chest pain, leg swelling, hypertension, CHF or palpitations GI: No nausea, vomiting, or diarrhea : No history of dysuria, frequency or incontinence DIRECTOR OF GLOBAL SALES: Negative for abnormal vaginal bleeding, abnormal vaginal discharge MUSCULOSKELETAL: Negative for joint pain or swelling, back pain or muscle pain SKIN: Negative for lesions, rash, and itching PSYCH: Negative for sleep disturbance, mood disorder and recent psychosocial stressors HEMATOLOGY/LYMPHOLOGY: Negative for prolonged bleeding, bruising easily or swollen nodes ENDOCRINE: Negative for cold or heat intolerance, polyuria, polydipsia and goiter NEURO: No history of headaches, syncope, paralysis, seizures or tremors GENERAL EXAMINATION: There were no vitals taken for this visit. General Appearance: This is a average built female. HEENT: There are no facial dysmorphic features. Lungs: clear to auscultation. Abdomen: The abdomen is benign, soft, flat, non-tender, no masses, normal bowel sounds. NEUROLOGICAL EXAMINATION: Mental Status: AANDOX3 The pupils were 4mm symmetrical, round, and reactive to light and accommodation. The visual moss were intact to confrontation. Facial sensations were intact bilaterally. There was no evidence for facial asymmetry. the tongue and palate were in midline. Sternomastoids and upper trapezius normal. Muscle tone examination showed normal tone. Muscle strength testing revealed 5/5 both upper and lower, bilaterally. There was no dysmetria seen. There was no evidence for sensory deficits. OTHER RELEVANT LABS AND TESTS: none DATA: Diagnostic tests reviewed for today's visit: Most recent labs and imaging results. Assessment/Plan This is a 52 year old left?handed female who presents with a chief complaint of possible seizures. Past medical history includes migraines, remote history of PE in 2006 and 3 ischemic strokes, chronic pain in bones (PCP Dr. Nieves prescribes pain medications), fibromyalgia, depression, RSD in all 4 extremities, who was recently admitted to EMU for her seizure like episodes, was diagnosed with PNES, she came back because she was told her by PCP that her lab was abnormal. SEIZURE DESCRIPTION Seizure Type A: grand mal Triggers: none Improved with vancomycin. Duration: unclear a pretty long time TB/UI: none Aura: just didn't feel right Ictal: If driving, could chute puller to a safe spot. Witness: Full body spasms, eyes rolled back, unresponsive Post-ictal: Confusion, colors different/not normal, doesn't know where she was. Sometimes combative. Frequency: unknown, but more under control. Injuries: ED visits/hospitalizations for seizures: Change in semiology over time: Change in seizures with medications: Vimpat 100mg BID Onset: 1999 at a wedding (no alcohol) and got extremely sick, started driving home and ended up somewhere in [place]. Was very scared afterward. Last seizure: unclear, but >6 months ago ? Seizure Type B: going out syncope? Triggers: none Aura: none Ictal: I'm down without warning. Does not wake up to sternal rub, etc, from family members. Unresponsive. No shaking. Usually no injuries since it's usually on carpeted floor. Sometimes, they can be be mistaken as me sleeping and people don't realize she is having one. Postictal: none. Woke up and though, how did I get here. Duration: 45 min - 1 hr Frequency: varies, difficult to know since she doesn't know when she's had them Last seizure: yesterday. Onset: 2015 after ammonia levels started going up. 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 Epilepsy Classification: Pseudoseizures Etiology: Other Related Condition(s): mood disorders 1. Admit under obs for continuous video-EEG monitoring to rule out seizure 2. Continue Vimpat 100mg BID 3. Consult Cardiology for possible syncope episodes 4. MRI, MRA and MRV to rule out new lesions. SIGNATURE:Addie Ross DO Neurology Resident (PGY-2) PATIENT NAME: Edgardo Denson DATE: July 23, 2018 TIME: 10:06 AM PAGER/CONTACT #: [id number] EPILEPSY STAFF NOTE Patient: Edgardo Denson [facility] STAFF PHYSICIAN NOTE OF PERSONAL INVOLVEMENT IN CARE I have reviewed the history and physical examination obtained and documented by the resident and I personally participated in the mejias components. I have discussed the case and management of the patient's care. The following comments revise or confirm relevant mejias components of the note. IMPRESSION: This is a 52 year old admitted with a history of strokes and possible seizures since 1999 presents with episodes of unclear etiology. She states she has had vomiting and diarrhea for several days and had lab work by her PCP. Her doctor called her to go to the hospital and she went to [facility] ([facility] She was then transferred to [facility] for what she states should be a work up for TIAs. She was told she would get an ultrasound of her carotids at [facility]. She is concerned she is having strokes given her history. She was in the EMU in June 2018 and had a normal EEG with some paroxysmal events, but her typical event was not captured. She did not have any events overnight on video EEG. PLAN: - Continue Video EEG - MRI/MRA/MRV brain - Cardiology consult as outpatient Care Coordination The majority of the visit was spent counseling and/or coordinating care for the patient. [id number] time was 60 minutes Lamont Good MD Beeper Number: [id number] Date of Service: July 24, 2018 Authenticated by Responsible Provider NURSING PROG Observed: 07/23/2018 Status: COMPLETED Source: [place] 7:12 AM [facility] REPOSITORY HNO ID: [id number] Author: Lona (Rn) ABIODUN Ashley Service: (none) Author Type: Registered Nurse Type: Nursing Progress Note Filed: 07/23/2018 7:13 AM Note Text: Nursing Progress Note Patient Name: Edgardo Denson [address] Transfer Note: Patient transferred into room/unit h60-43 in stable condition. Actions taken: No futher actions taken at this time. Pt oriented to call light and room functions. Will continue to monitor and check with patient. This note was completed by: Lona Ashley RN EKG Observed: 07/22/2018 Status: F Source: [employer] 8:36 PM SYSTEM REPOSITORY EKG Ventricular Rate : 68 BPM Atrial Rate : 68 BPM P-R Interval : 120 ms QRS Duration : 72 ms Q-T Interval : 422 ms QTC Calculation(Bezet) : 448 ms Calculated P [place] : 81 degrees Calculated R [place] : 65 degrees Calculated T [place] : 64 degrees Diagnosis:Normal sinus rhythm Normal ECG When compared with ECG of 02-FEB-2016 13:49, No significant change was found Confirmed by WALLACE CLARKE ([id number]) on 07/23/2018 11:07:19 PM BRAIN WO CONTRAST Observed: 07/22/2018 Status: F Source: [employer] 8:14 PM SYSTEM REPOSITORY *FINAL Date of Service: 07/22/2018 20:14 Adm #: [id number] Reading Dr:COLLEEN OVIEDO Signoff Dr: COLLEEN OVIEDO PROCEDURE: BRAIN WO CONTRAST - WCT 3000 REASON FOR EXAM: Syncope RESULT: BRAIN WO CONTRAST: 07/22/2018 8:14 PM CLINICAL INDICATION: Syncope COMPARISON: 02/13/2016 TECHNIQUE: CT axial images through the Brain were obtained without contrast. PATIENT RADIATION EXPOSURE DATA: CTDI mGy: 57.50 mGy DLP mGy/cm: 988 mGycm FINDINGS: There is no mass effect, hemorrhage, or infarct. The ventricles appear normal. Barclay-white differentiation is maintained. The visualized paranasal sinuses appear clear. IMPRESSION: Normal CT of the brain This report has been produced using speech recognition. This exam is available in DICOM format to non-affiliated healthcare facilities on a secure media free searchable basis with prior patient authorization. The patient exposure is reported to a radiation dose index registry. All CT examinations are performed with one or more of the following dose reduction techniques: Automated Exposure Control, Adjustment of mA and/or KV according to patient size, or use of iterative reconstruction techniques. Original Interpreting Physician: COLLEEN OVIEDO MD Original Transcribed by/Date: PSCB Jul 22 2018 8:19P Original Electronically Signed by/Date: COLLEEN OVIEDO MD Jul 22 2018 8:19P Addendum Interpreting Physician: Addendum Transcribed by/Date: NO ADDENDUM Addendum Electronically Signed by/Date: UA-REFLEX TO CULTURE Collected: 07/22/2018 Status: F Source: [facility] 7:06 PM SYSTEM REPOSITORY TYPE CODE TESTS RESULT OUT OF REFERENCE UNITS RANGE LAB UCOL URINE COLOR PALE YELLOW LAB [facility] URINE CLARITY CLEAR LAB USG 1.005-1.030 SP GRAV,URINE 1.012 LAB UPH 4.6-8.0 PH,URINE 6.0 LAB ULEU NEG LEUK NEGATIVE LAB UNIT NEG NIT NEGATIVE LAB UPR NEG mg/dL PROT NEGATIVE LAB UGLU NEG mg/dL GLUC NEGATIVE LAB UKET NEG KET NEGATIVE LAB UURO 0-1.0 MG/DL URO NORMAL LAB UBIL NEG BILI NEGATIVE LAB UBLD NEG BLOOD NEGATIVE LAB UCLT URINE CULTURE Result Comment: CULTURE NOT INDICATED Performed at [address] [address] LAB TR1 MICROSCOPIC AUTOMATIC MICROSCOPIC URINES LAB UWBC 0-3 /HPF WBC 2 LAB URBC 0-3 /HPF RBC NONE SEEN LAB BACT BACT NEGATIVE LAB USQEP /HPF URINE SQUAMOUS FEW EPI LAB UHYAL /LPF URINE HYALINE NONE SEEN CAST Performed By: #### UACUL #### Main Laboratory [address] [address] CBC WITH DIFF Collected: 07/22/2018 Status: F Source: [facility] 4:59 PM SYSTEM REPOSITORY TYPE CODE TESTS RESULT OUT OF REFERENCE UNITS RANGE LAB DTYP DIFF TYPE AUTO DIFF LAB IMGP 0.0-1.0 % IMMATURE NEUT % 0.40 LAB NEUT 50-70 % NEUTROPHIL 63.70 LAB LYPH 20-40 % LYMPHOCYTE 27.70 LAB MONO 0-8 % MONOCYTE 5.20 LAB EOS 0-3 % EOSINOPHIL 2.20 LAB BASO 0-1 % BASOPHIL 0.80 LAB AIMG 0.0-0.1 K/UL AB IMMATURE NEUT 0.03 LAB AGRA 1.8-7.7 K/UL ABS NEUTROPHILS 5.39 LAB ALYM 1.2-3.2 K/UL ABS LYMPH 2.35 LAB VALENTINO 0-0.8 K/UL ABS MONOCYTE 0.44 LAB AEOS 0-0.45 K/UL ABS EOS 0.19 LAB ABAS 0.00-0.22 K/UL ABS BASO 0.07 LAB WBC 4.5-11.0 K/UL WBC COUNT 8.5 LAB RBC 4.0-4.9 M/UL Low RBC COUNT 3.86 LAB HGB 12.0-15.0 GM/DL HEMOGLOBIN 12.3 LAB HCT 36-44 % HEMATOCRIT 36.0 LAB MCV 80-100 FL MCV 93.3 LAB MCH 26-34 PG MCH 31.9 LAB MCHC 31-37 % MCHC 34.2 LAB RDWS 37.0-54.0 FL RDW-SD 42.1 LAB RDWC 11.7-15.0 % RDW-CV 12.3 LAB PLT 150-450 K/UL PLATELET 286 LAB MPV 7.0-12.6 CU MEAN PLT VOL 10.0 LAB NRBC 0 /100 WBC NRBC'S 0 LAB ANC ABS.NEUT.CALCULAT ED Result Comment: 5.39 Performed at [address] [address] Performed By: #### CBCD #### Main Laboratory [address] [address] BASIC METABOLIC PANEL Collected: 07/22/2018 Status: F Source: [facility] 4:59 PM SYSTEM REPOSITORY TYPE CODE TESTS RESULT OUT OF REFERENCE UNITS RANGE LAB GLU 65-99 MG/DL GLUCOSE 85 LAB BUN 8-25 MG/DL UREA NITROGEN 8 LAB CRET 0.4-1.6 MG/DL CREATININE 0.6 LAB BUCR 8-21 RATIO BUN/CREAT. RATIO 13.3 LAB NA 133-145 MMOL/L SODIUM 144 LAB K 3.4-5.1 MMOL/L Low POTASSIUM 3.1 LAB CL 97-107 MMOL/L CHLORIDE 106 LAB CO2 24-31 MMOL/L CARBON DIOXIDE 26 LAB ANGP 0-19 MMOL/L ANION GAP 12 LAB CA 8.5-10.4 MG/DL Low TOTAL CALCIUM 8.4 LAB EGFR ESTIMATED GFR Result Comment: 111 GFR ml/min/1.73m2 Stage ----- 90 1 60-89 2 30-59 3 15-29 4 <15 5 For -Americans, multiply EGFR result by 1.210 Calculation not validated for patients under 18 years of age. Performed at [place] [id number] Performed By: #### BMP #### [facility] Laboratory [address] [address] CT-BRAIN WO CONTRAST Observed: 07/22/2018 Status: F Source: [facility] 12:00 AM [facility] REPOSITORY Images were obtained outside of [facility] [id number] LEAD ELECTROCARDIOGRAM Observed: 07/14/2018 Status: F Source: [place] 2:21 PM [facility] REPOSITORY [facility] Cardiovascular Services [address] [place] [address] 12 Lead EKG 07/11/182044 MR#: [id number] Acct: [id number] Name: EDGARDO DENSON Rep #: [id number] : 1965 52 From: Yosef Dickinson MD Attending Dr: Status: DEP ER Ordering Dr: Jaleesa,Ivonne P. Date: 07/11/18 Location: ED Sex: F C Admitted: Test Reason : CP Blood Pressure : / mmHG Vent. Rate : 076 BPM Atrial Rate : 076 BPM P-R Int : 124 ms QRS Dur : 072 ms QT Int : 398 ms P-R-T Axes : 076 063 064 degrees QTc Int : 447 ms Normal sinus rhythm Normal ECG Confirmed by YOSEF DICKINSON MD ([id number]), material expeditor OPAL THOMPSON ([id number]) on 07/14/2018 2:21:02 PM Referred By: GIORGIO/ELKIN Confirmed By:YOSEF DICKINSON MD 07/14/18 1421 Date Yosef Dickinson MD CC: No Primary Care Physician; Mykel Boogie DO; ED PHYSICIAN PROVIDER Signed EMERGENCY DEPARTMENT Observed: 07/13/2018 Status: F Source: [place] SUMMARY 8:16 AM [facility] REPOSITORY [facility] Medical Records Department [address] [place] [address] Emergency Department Summary 07/11/18 2255 MR#: [id number] Acct: [id number] Name: EDGARDO DENSON Rep #: [id number] : 1965 52 From: Mykel Boogie DO PCP: Care Physician, No Primary Status: DEP ER - ER Visit Summary Date of Service: 07/11/18 Chief Complaint: Left chest wall pain History of Present Illness: The patient is a 52 F who states that one week ago when she woke up she had pain underneath her left breast. The pain is worse with moving and now radiates along the ribs into her back. She states that it is gotten worse. She states that she has decided to move from the [facility] down to the [facility]. She states she is doing so to help her daughter. She tells me that her daughter told her to go to the emergency department tonight and that she did not she would never see her children again. She is on Pradaxa for prior pulmonary embolism. She states that she has not missed any doses of Pradaxa. The patient also reportedly has Percocet at home. She is a smoker. She denies any rashes. No trauma. She reports that her blood pressure is typically in the 90s Physical Examination: Afebrile vital signs are stable Gen: Well-nourished well-developed Head: Normocephalic atraumatic Eyes: Perrl EOMI ENT: TMs clear no rhinorrhea moist mucous membranes Neck: Supple no lymphadenopathy no JVD nontender CVS: Regular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 Patient Disposition at End of Session: Supine in Bed;Call Ornelas in Reach Tolerance Limited By Fatigue Occupational Therapy Problem List: Education Deficit;Pain;Safety Deficits Patient /Caregiver Goals: Go Home;Care For Self Goals for Plan of Care: Demonstrate Competence With Education with: Independent Progress Toward Goals: Progressing as expected Rehab Potential: Good PLAN: Treatment Frequency (times per week): Discontinue Therapy Services Reasons Therapy Services Discontinued: No skilled needs;Goals met Current admission Plan of Care developed with: Patient TREATMENT INTERVENTIONS: Therapy Diagnosis: Reduced mobility-other Interventions Provided: Evaluation $ Evaluation-Low (93655) Billed Units: 1 unit Total Treatment Time (minutes): 15 FUNCTIONAL G CODE: OT 6 Clicks Score: 24 (07/11/18804) Self Care Current Status (G8987): CH (07/11/18804) Self Care Goal Status (G8988): CH (07/11/18804) Self Care Discharge Status (G8989): (07/11/18804) Based on clinical assessment and the score on the 6 Clicks Functional Assessment Tool, the G code and corresponding severity modifiers are documented above. 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 Past medical history includes migraines, remote history of PE in 2006 and 3 ischemic strokes, chronic pain in bones (PCP Dr. Nieves prescribes pain medications). 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 She describes grand mal seizures that began in 1999 and have occurred with unclear frequency, last episode unknown. She also reports episodes of going out in which she loses awareness without warning, is unresponsive for 45 min- 1 hr, then awakes with confusion. Last episode was twice the day before admission, but pt cannot specify the frequency of these episodes. She estimates frequency to be >1 per week. Also describes passing out occasionally which improved with Vimpat. Relevant Past Medical History: CVA. PE. Depression. Patient Report: I'm sorry I can't keep my eyes open. They woke me up at 4. Home Environment Patient Lives With: Family Assistance Available: 24 Hour Entry To Home: Stairs Number Of Stairs Into Home: 2 Equipment Owned: Wheeled Walker;Shower Chair Prior Functional Level: Within Functional Limits Prior Functional Level Comments: falls at home OBJECTIVE: Responsiveness: Drowsy;Lethargic Mini Cog Score: 5 (07/09/18 0915) Psychosocial Deficit: h/o depression CURRENT FUNCTIONAL STATUS: Current Activities of Daily Living Assist Level Feeding Set Up Grooming Set Up Bathing Upper Body Set Up Bathing Lower Body Set Up Dressing Upper Body Set Up Dressing Lower Body Set Up Toileting Set Up Instrumental Activities of Daily Living Assist Level Meal/Beverage Prep Minimal Assistance Light Cleaning Moderate Assistance Laundry Moderate Assistance Medication Management with Strategies Functional Mobility Assist Level Rolling (pt declined all mobility 2/2 fatigue) Supine to Sit Sit to Supine Scooting Sit to Stand Stand to Sit Bed to Chair Toilet/Commode Functional Mobility Please see discipline specific clinical documentation flowsheet for complete details for this therapy evaluation/treatment. SIGNATURE: Ellen Goncalves OT/Prudence PATIENT NAME: Edgardo Denson DATE: July 11, 2018 TIME: 8:26 AM CNDS Observed: 07/10/2018 Status: COMPLETED Source: [place] 1:09 PM [facility] REPOSITORY HNO ID: [id number] Author: Radha Mayorga (Pa) Service: Neurology Epilepsy Author Type: Physician Auto Rebuilder Type: Discharge Summaries Filed: 07/12/2018 1:51 PM Note Text: Attestation signed by Darleen Zayas at 07/13/2018 11:44 AM [facility] STAFF NOTE [facility] STAFF PHYSICIAN NOTE OF PERSONAL INVOLVEMENT IN CARE I have reviewed the discharge instructions obtained and documented by the nurse practitioner and I personally participated in the mejias components. I have discussed the case and management of the patient's care. Darleen Viramontes M.D DISCHARGE SUMMARY PATIENT NAME: Edgardo Denson ADMISSION DATE: 06/29/2018 DISCHARGE DATE: 07/11/2018 DATE OF : 1965 Code Status: Not on file Admitting Service: Epilepsy Attending Physician: Darleen Zayas Referring/Secondary Physician: Daisy Ortiz Highest Readmission Risk Score: 30 The 30 day readmissions risk score is derived from an internally validated risk model which evaluates patient level characteristics, utilization history, medication orders and lab results up until the day of discharge. Patients with a score of 40 or above are considered highest risk for readmission. Specific patient level drivers will be listed at the bottom of the summary. Reason for Hospitalization: Principal Problem: Convulsions (HCC) Active Problems: Depression Chronic pain syndrome Tobacco use disorder [facility] (current) use of anticoagulants Muscle spasm Asthma Psychogenic nonepileptic seizure Resolved Problems: * No resolved hospital problems. * Operations During Hospitalization: None Principal Procedures: EEG Imaging Studies: EEG Medication on Admission: No current facility-administered medications on file prior to encounter. Current Outpatient Prescriptions on File Prior to Encounter: dabigatran etexilate (PRADAXA) 150 mg cap Take 1 capsule by mouth twice daily. [START ON 08/04/2018] oxyCODONE-acetaminophen (PERCOCET) 5- 325 mg tablet 1 po q4h prn breakthrough pain (MAXIMUM 5 pills/day)Earliest Fill Date: 08/04/18 promethazine (PHENERGAN) 25 mg tablet Take 1 tablet by mouth every 8 hours as needed. gabapentin (NEURONTIN) 300 mg capsule take 3 capsules by mouth three times a day spironolactone (ALDACTONE) 25 mg tablet Take 1 tablet by mouth once daily as needed. Takes as needed potassium chloride 20 mEq TbER Take 1 tablet by mouth every Tuesday,Tuesday,Tuesday. omeprazole (PRILOSEC) 20 mg capsule Take 1 capsule by mouth once daily. Cetirizine (ZYRTEC) 10 mg cap Take by mouth once daily. ergocalciferol, vitamin D2, (DRISDOL) 50,000 unit capsule Take 1 capsule by mouth every Tuesday. Indications: VITAMIN D DEFICIENCY fluticasone-salmeterol (ADVAIR DISKUS) 500-50 mcg/dose dsdv Inhale 1 Puff as instructed twice daily. RINSE AND GARGLE MOUTH WITH WATER AFTER EACH USE. levalbuterol tartrate HFA (XOPENEX HFA) 45 mcg/actuation inhaler Inhale 1-2 Puffs as instructed every 4 hours as needed for Wheezing/Shortness of Breath. COMPOUNDED PRESCRIPTION Low Dose Naltrexone2 mg capsule (do not use calcium filler)Take one capsule by mouth at 9:00 PM every night lacosamide (VIMPAT) 100 mg tab Take 1 tablet by mouth twice daily for 30 days. dicyclomine (BENTYL) 20 mg tablet Take 1 tablet by mouth four times daily. loperamide (IMODIUM) 2 mg cap(s) Take 1 capsule by mouth as needed for Diarrhea. Allergies: Cellacefate; Depakote [Divalproex Sodium]; Dilantin [Phenytoin Sodium Extended]; Divalproex; Fish Containing Products; Penicillin; Penicillin G; Shrimp; Sulfa (Sulfonamide Antibiotics); Sulfamethoxazole-Trimethoprim; Topamax [Topiramate]; Haldol [Haloperidol] Hospital Course: This is a 52 year old left?handed female who presents with a chief complaint of possible seizures. Past medical history includes migraines, remote history of PE in 2006 and 3 ischemic strokes, chronic pain in bones (PCP Dr. 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 She describes grand mal seizures that began in 1999 and have occurred with unclear frequency, last episode unknown. She also reports episodes of going out in which she loses awareness without warning, is unresponsive for 45 min- 1 hr, then awakes with confusion. Last episode was twice the day before admission, but pt cannot specify the frequency of these episodes. She estimates frequency to be >1 per week. Also describes passing out occasionally which improved with Vimpat. ? Home AEDS: KLP 0.5 TID (uses prn muscle spasm) LCM 100 BID GBP 900 TID (uses for neuralgia) The patient was monitored with continous video-EEG from 06/29/2018 to 07/11/2018. None of the patient's typical events at home were captured here. There were 3 button pushes by staff - not the patient. None of these events showed EEG changes and are, therefore, considered paroxysmal nonepileptic events. Event report: 1E on 06/30 at 15:50 - Patient states she felt disoriented and dizzy 2E on 07/02 at 11:18 - Patient did not recall event, but when this nurse attempted to wake patient, pt was unresponsive and did not respond to sternal rub. Within a minute or so, patient woke up and was confused regarding event. 3E on 07/04 - weak, dizziness, can't keep eyes open to save my life Please see separate video-EEG report for details. Patient was ready to be discharged since 07/07 but was demanding that she cannot leave due to chest pain and a non-specific rash. After evaluation by epilepsy team and internal medicine, the pain was deemed likely due to musculoskeletal pain. Patient filed a [employer] appeal about her discharge to her insurance. An official determination was made that patient should be discharged on 07/11/2018. No medication changes were made, and patient was advised to continue AEDs due to seizure-like activity/convulsions and increased risk of epilepsy given history of stroke. Transitions of Care Critical Issues: SPECIALIST FOLLOW-UP: Lilo Ortiz MEDICATION PLAN: Continue previous AEDs: Klonopin 0.5 mg TID prn muscle spasm, Lacosamide 100 mg BID, and Gabapentin 900 mg TID for neuralgia LABS AND PROCEDURES PENDING AT DISCHARGE: No pending results. Consulting Teams During Hospitalization: Hospital Medicine: Yoseph Jackson MD Occupational Therapy: Ellen Goncalves OT/Prudence Social Work: Thaddeus Tirado Patient Condition @ Discharge: Stable Discharge Disposition: Home/Self Care Discharge Physical Exam: VITAL SIGNS: BP 91/69 Pulse 63 Temp 36.6 ?C (97.8 ?F) (Oral) Resp 18 Ht 162.6 cm (5' 4) Wt 60.9 kg (134 lb 3.2 oz) SpO2 98% BMI 23.04 kg/m? Exam unchanged. NEUROLOGICAL EXAM: MENTAL STATUS The patient is oriented to person, place, and time. Speech is clear with normal language. Attention and concentration normal. CRANIAL NERVES Extraocular movements are full. There is no nystagmus. Facial sensation is normal. Facial strength/movement is symmetric. Hearing is intact. Palate elevates normally. Shoulder shrug is intact. Tongue protrudes midline. MOTOR EXAM Tone and bulk are normal. Strength exam affected by chest pain with movement. No tremor or other abnormal movements noted. No pronator drift. COORDINATION Puvjre-xlbt-bxidey normal. GAIT Deferred. DISCHARGE INSTRUCTIONS: Pain Control: Adequate management. Diet: Normal Activity: No Driving. and seizure precautions Wound/Surgical Site Care: None Discharge Medications: Discharge Medication List as of 07/11/2018 11:01 AM CONTINUE these medications which have NOT CHANGED venlafaxine ER (EFFEXOR XR) 150 mg 24 hr capsule Take 2 capsules by mouth once daily. Normal, Disp-180 capsule, R-0, Long-term Dx: 1. Psychiatric disorder 2. Chronic pain syndrome clonazePAM (KLONOPIN) 0.5 mg tablet Take 1 tablet by mouth three times daily as needed for up to 90 days. Call Rx, Disp-90 tablet, R-2, Long-term Dx: 1. Muscle spasm dabigatran etexilate (PRADAXA) 150 mg cap Take 1 capsule by mouth twice daily. Normal, Disp-60 capsule, R-11 Dx: 1. Embolism and thrombosis (HCC) oxyCODONE-acetaminophen (PERCOCET) 5-325 mg tablet 1 po q4h prn breakthrough pain (MAXIMUM 5 pills/day) Earliest Fill Date: 08/04/18 Print RX, Disp-150 tablet, R-0 Dx: 1. Other chronic pain promethazine (PHENERGAN) 25 mg tablet Take 1 tablet by mouth every 8 hours as needed. Normal, Disp-20 tablet, R-0 Dx: 1. Nausea 2. Acute exacerbation of chronic obstructive pulmonary disease (COPD) ([facility]) fluticasone-salmeterol (ADVAIR DISKUS) 500-50 mcg/dose dsdv Inhale 1 Puff as instructed twice daily. RINSE AND GARGLE MOUTH WITH WATER AFTER EACH USE. Normal, Disp-1 Each, R-5, Long-term Dx: 1. Chronic bronchitis, unspecified chronic bronchitis type (HCC) levalbuterol tartrate HFA (XOPENEX HFA) 45 mcg/actuation inhaler Inhale 1-2 Puffs as instructed every 4 hours as needed for Wheezing/Shortness of Breath. Normal, Disp-1 Inhaler, R-0, Long-term gabapentin (NEURONTIN) 300 mg capsule take 3 capsules by mouth three times a day Normal, Disp-270 capsule, R-2, Long-term Dx: 1. Chronic pain syndrome spironolactone (ALDACTONE) 25 mg tablet Take 1 tablet by mouth once daily as needed. Takes as needed Normal, Disp-30 tablet, R-0, Long-term Dx: 1. Edema, unspecified type potassium chloride 20 mEq TbER Take 1 tablet by mouth every Tuesday,Tuesday,Tuesday. Normal, Disp-36 tablet, R-1, Long-term Dx: 1. Hypokalemia COMPOUNDED PRESCRIPTION Low Dose Naltrexone 2 mg capsule (do not use calcium filler) Take one capsule by mouth at 9:00 PM every night Print RX, Disp-30 capsule, R-5 lacosamide (VIMPAT) 100 mg tab Take 1 tablet by mouth twice daily for 30 days. Print RX, Disp-60 tablet, R-3, Long-term Dx: 1. Syncope and collapse dicyclomine (BENTYL) 20 mg tablet Take 1 tablet by mouth four times daily. Normal, Disp-20 tablet, R-0 omeprazole (PRILOSEC) 20 mg capsule Take 1 capsule by mouth once daily. Med Update, R-0 Dx: 1. Gastroesophageal reflux disease, esophagitis presence not specified loperamide (IMODIUM) 2 mg cap(s) Take 1 capsule by mouth as needed for Diarrhea. Med Update, R-0 Cetirizine (ZYRTEC) 10 mg cap Take by mouth once daily. Historical Med ergocalciferol, vitamin D2, (DRISDOL) 50,000 unit capsule Take 1 capsule by mouth every Tuesday. Indications: VITAMIN D DEFICIENCY Med Update, R-0 STOP taking these medications valACYclovir (VALTREX) 1 gram tab Comments: Reason for Stopping: Future Appointments: Future Appointments Date Time Provider Department Center 08/23/2018 1:30 PM Ragini WHITE [facility] B[facility] 01/30/2019 3:00 PM Ryan QUILES [facility] This patient?s risk for 30-day readmission is determined using the following contributing drivers Pt variables contributing to increased readmission risk: 22 Active Medication Orders 11 Most Recent BUN Result 9.3 First Resulted Calcium During Admission 1 Previous ED Visit (6 mos.)? 1 Number of Previous ED Visits (6 mos.) 1 Insurance - Medicare 1 Discharge Disposition - Home 1 History of COPD 1 History of Anemia 1 History of Drug Abuse/Dependence 1 Active Anticoagulant TIME OF CARE: Discharge Management: I personally spent greater than 30 minutes involved in the discharge management of this patient. SIGNATURE: NURIS Gracia PAGER: [phone] DATE: July 10, 2018 TIME: 1:09 PM SOCIAL WORK Observed: 07/10/2018 Status: COMPLETED Source: [place] 10:06 AM [facility] [place] REPOSITORY [facility]NO ID: [id number] Author: Thaddeus Tirado (Sw) Service: Social Work Author Type: Asphalt Paver Type: Social Work Filed: 07/10/2018 4:34 PM Note Text: SOCIAL WORK PROGRESS NOTE SERVICE DATE: 07/10/2018 SERVICE TIME: 9:45am BEV made aware of [email or web address] appeal filed over weekend. [email or web address] [phone] and was informed all information has been received and determination is anticipated for today. BEV provided [facility] with contact information for this press writer for once determination has been made. BEV will continue to follow. SIGNATURE: HAILE Magdaleno PATIENT NAME: Edgardo Denson DATE: July 10, 2018 TIME: 10:06 AM PAGER/CONTACT #: [phone] 1:15pm: BEV has not received response from [employer]; contacted [employer] again at [phone] and spoke with Latoya. BEV informed that determination is due today, but has not yet been made. BEV confirmed this press writer's contact information is on file to be contacted with determination. BEV will continue to follow. 4:15pm: BEV has not yet received response from [employer]. [email or web address] and spoke with Yuliana, who informs patient's appeal has been denied and also informs that a message was left for patient regarding this at 1:30pm. Also, per [employer], letter regarding this will be mailed to both [facility] and patient; will not be faxed. Per [employer], today (07/10/18) is patient's last covered day and patient will begin to incur costs at 12:00pm on 07/11/18. BEV met with patient in room who informs she does not have her cell phone with her and has not received call from [employer]. SW provided update to patient regarding SW conversation with [employer]. Patient voices understanding and calls her daughter to provide update. Per patient conversation with her daughter, daughter will transport patient home tomorrow via private car before 12:00pm. SW provided update to team. SW will continue to follow as needed. PROGRESS Observed: 07/10/2018 Status: COMPLETED Source: [place] 8:36 AM [facility] REPOSITORY HNO ID: [id number] Author: Darleen Zayas Service: Neurology Epilepsy Author Type: Physician Type: Progress Notes Filed: 07/10/2018 8:26 PM Note Text: NEUROLOGY EPILEPSY MONITORING UNIT ([facility]U) PROGRESS NOTE SERVICE DATE: 07/10/2018 SERVICE TIME: 08:35 Subjective Patient denies having any of her typical events. States the rash over her ribs is gone now. Still complains of pleuritic chest pain. She states the pain is worse with sitting or standing, which she reasons is why her blood pressure increases with sitting and standing. She states that we in neuro have been more than great, but that she is worried about the fact that her pain has spread, she has pain with breathing, and her BP has been lower than normal. She denies questions or other complaints. Most recent event was a 3E on 07/04 - dizziness Home Anti Epileptic Drugs: KLP 0.5 TID LCM 100 BID GBP 900 TID Anti Epileptic Drugs here: same as home Objective 07/09/18 2352 07/10/18 0050 07/10/18 0411 07/10/18 0745 BP: 88/54 86/57 Pulse: 61 72 Resp: 16 16 16 18 Temp: 36.6 ?C (97.8 ?F) 36.5 ?C (97.7 ?F) TempSrc: Oral Oral SpO2: 94% 95% Weight: Height: EKG, Telemetry, EEG, Monitors AND Alarms are on: Yes ? Written order: Remains standing. Seizure detection software on: Yes ? photovoltaic testing technician has been notified: Yes ? turn machine operator has been notified: Yes EXAM: Mental Status: Alert and oriented to person, place and time. Able to follow 1 and 2 step commands. radiator tester: Pupils equal and reactive to light, extraocular muscles intact. No nystagmus, face symmetric. Motor: Moves all extremities equally. Sens: Intact to light touch. Exam otherwise unchanged. There is still mild edema and tenderness over left inferior ribs. No lesions, ecchymosis, or other abnormalities noted. DATA: Diagnostic tests reviewed for today's visit: Most recent labs and imaging results. 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 Past medical history includes migraines, remote history of PE in 2006 and 3 ischemic strokes, chronic pain in bones (PCP Dr. Nieves prescribes pain medications). 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 She describes grand mal seizures that began in 1999 and have occurred with unclear frequency, last episode unknown. She also reports episodes of going out in which she loses awareness without warning, is unresponsive for 45 min- 1 hr, then awakes with confusion. Last episode was twice the day before admission, but pt cannot specify the frequency of these episodes. She estimates frequency to be >1 per week. Also describes passing out occasionally which improved with Vimpat. ? On home medications currently: KLP 0.5 TID LCM 100 BID GBP 900 TID ? None of patient's typical events at home were captured here. There were 3 button pushes by staff - not patient. None of these events showed EEG changes. Event report: 1E on 06/30 at 15:50 - Patient states she felt disoriented and dizzy 2E on 07/02 at 11:18 - Patient did not recall event, but when this nurse attempted to wake patient, pt was unresponsive and did not respond to sternal rub. Within a minute or so, patient woke up and was confused regarding event. 3E on 07/04 - weak, dizziness, can't keep eyes open to save my life -Await results of insurance appeal process before D/C is possible -Continue AEDs -Patient had been DC ready but complained of chest pain and nonspecific rash. Internal medicine was consulted. Pain was palpable. Patient was started on NSAIDS. A doppler BLE US and d-dimer was done for the pain. This workup was negative, so IM did not recommend chest CT due to low risk of PE. -Patient has been ready for DC since 07/07 but demanding that she cannot leave due to pain and a non-specific rash. The rash was minimal on exam and thought to be due to lidocaine patch. Today, exam revealed no rash, and patient agrees that it is gone now. -She filed an appeal about discharge with insurance on Tuesday. -Low BP has been asymptomatic and maybe due to patient being in bed all day. This was discussed with the patient, who feels that her BP increases with sitting and standing because her pain also increases with these activities. Will ask for recommendations from IM team regarding the same. -Continue video-EEG monitoring -Ativan 1-2 mg IV for sz lasting >5 min. -IPCs for VTE prophylaxis. SIGNATURE: NURIS Gracia PATIENT NAME: Edgardo Denson DATE: July 10, 2018 TIME: 8:36 AM PAGER/CONTACT #: [phone] ? EPILEPSY CENTER STAFF NOTE ? [facility] STAFF PHYSICIAN NOTE OF PERSONAL INVOLVEMENT IN CARE I have reviewed the progress note obtained and documented by the nurse practitioner and I personally participated in the mejias components. I have discussed the case and management of the patient's care. The following comments revise or confirm relevant mejias components of the note. ? IMPRESSION: This is a 52 year old year old admitted with history of events of unclear etiology admitted for diagnostic video EEG evaluation - suggestive for paroxysmal nonepileptic events. MRI in 2016 was read as normal. EEG no epileptiform discharges. Risk factors for epilepsy include head injuries, strokes and viral meningitis Today pt complaints of pain the lower left chest, can not take deep brath. was hypoxic x1 only, has a hx of DVT and PEs in the past ? ? The day's recording was personally reviewed and the results are summarized below. VIDEO-EEG MONITORING DAILY REPORT: Interictal findings: to be reviewed ? Ictal findings: none overnight Patient appealed her admissions with insurance Again there is no acute medical issues to continue with this hospitalization Awaiting for appeal answer ? The treatment plan was discussed in detail with the patient/patient family members. ?Time for questions was given and answers were discussed. ?The patient/patient family members agree with the treatment plan. ? ? ? Darleen Viramontes M.D ? EKG1 Observed: 07/09/2018 Status: F Source: [place] 9:44 PM [facility] REPOSITORY NAME : EDGARDO DENSON PID : [id number] : 1965 Gender : Female Race : ORD : Procedure Date : Jul 09 2018 21:44:39 Edit Date : Jul 11 2018 14:34:16 Diagnosis:NORMAL SINUS RHYTHM NORMAL ECG Confirmed by MARJAN ERNST M.D. ([id number]) on 07/11/2018 2:20:21 PM Ventricular Rate : 72 BPM Atrial Rate : 72 BPM P-R Interval : 126 ms QRS Duration : 78 ms Q-T Interval : 394 ms QTC Calculation(Bezet) : 431 ms P [place] : 65 degrees R Od[place] : 56 degrees T [place] : 50 degrees Test Reason : Location : 69 : M60 3 Overread By : MARJAN ERNST M.D. Edited By : MARJAN ERNST M.D. Referred By : LILO ORTIZ Acquired by : BAKARI NUNO NURSING PROG Observed: 07/09/2018 Status: COMPLETED Source: [place] 5:38 PM [facility] REPOSITORY HNO ID: [id number] Author: Shanita (Rn) ABIODUN Allen Service: Nursing Author Type: Registered Nurse Type: Nursing Progress Note Filed: 07/09/2018 5:40 PM Note Text: Nursing Progress Note Patient Name: Edgardo Denson Patient Location: M060 003/M060-03 No s/s of sz activity this shift. No reported sz activity. Patient sat up in chair this afternoon and used pedal bike for exercise. This note was completed by: Shanita Allen RN PLAN OF CARE Observed: 07/09/2018 Status: COMPLETED Source: [place] 4:55 PM [facility] REPOSITORY HNO ID: [id number] Author: Yoseph Jackson Service: General Internal Medicine Author Type: Resident Type: Plan of Care Filed: 07/09/2018 6:26 PM Note Text: INTERNAL MEDICINE CONSULT PLAN OF CARE NOTE Saw patient today for concerns of Hypotension. Patient's BP was 70/45 this morning, which improved upon recheck 10 minutes later to 90/52. Reportedly patient was asymptomatic during the episode. During encounter patient stated that she was somewhat light- headed during the episode but she feels like she has had issues with light-headedness and dizziness always and that is not a new issue for her. She is concerned about her Blood Pressure being in 70s and 80s because she normally lives in 90s. Per review of records, including outpatient records, patient's BP normally in 90s. Because patient's BP corrected quickly to 90 within 10 minutes without any therapy, suspicion is that the decrease was likely due to patient being supine. There has been no other significant hypotensive episodes during this admission and there are no other vital derangement to suggest sepsis or another cause to this hypotension. BP 100/68 Pulse 69 Temp 37 ?C (98.6 ?F) (Oral) Resp 16 Ht 162.6 cm (5' 4) Wt 60.9 kg (134 lb 3.2 oz) SpO2 96% BMI 23.04 kg/m? General: No acute distress. AANDOx3. HEENT: PERRLA. EOMi. Neck: No JVD. No LAD. CV: Normal rate and rhythm. No murmurs or rubs auscultated. Resp: CTA b/l. No wheezing or crackles. Abdomen: Soft, nontender, nondistended abdomen. BSx4. Extremities: No pedal edema b/l. Neuro: CN II-XII Grossly Intact. Okay to monitor for now and ensure adequate hydration. Case discussed with Attending Physician, Dr. Rodriguez. Yoseph Jackson MD PGY-1 Internal Medicine Resident Pager [phone] CASE MANAGEM Observed: 07/09/2018 Status: COMPLETED Source: [place] 2:59 PM [facility] RE[facility] HNO ID: [id number] Author: Sonam Jesus (Asst) Service: Care Management Author Type: [facility] [employer]builder Type: Care Mgt Progress Note Filed: 07/09/2018 3:00 PM Note Text: CARE MANAGEMENT PROGRESS NOTE SERVICE DATE: 07/09/2018 SERVICE TIME: 11:15 am LOS: 10 days IM letter given to patient on 07/09/18. SIGNATURE: Asst Andreas PATIENT NAME: Edgardo Denson DATE: July 09, 2018 TIME: 3:00 PM PAGER/CONTACT #: [phone] PROGRESS Observed: 07/09/2018 Status: COMPLETED Source: [place] 10:26 AM [facility] [place] REPOSITORY HNO ID: [id number] Author: Darleen Zayas Service: Neurology Epilepsy Author Type: Physician Type: Progress Notes Filed: 07/09/2018 7:00 PM Note Text: NEUROLOGY EPILEPSY MONITORING UNIT ([facility]U) PROGRESS NOTE SERVICE DATE: 07/09/2018 SERVICE TIME: 10:28 AM Subjective No seizures overnight. Patient has several pain complaints Home Anti Epileptic Drugs: KLP 0.5 TID LCM 100 BID GBP 900 TID Anti Epileptic Drugs here: KLP 0.5 TID LCM 100 BID GBP 900 TID Objective 07/09/18 0805 07/09/18 0930 07/09/18 0940 07/09/18 0955 BP: (!) 83/44 (!) 70/45 90/52 113/76 Pulse: Resp: Temp: TempSrc: SpO2: Weight: Height: EKG, Telemetry, EEG, Monitors AND Alarms are on: Yes ? Written order: Remains standing. Seizure detection software on: Yes ? photovoltaic testing technician has been notified: Yes ? turn machine operator has been notified: Yes EXAM: Mental Status: Alert and oriented to person, place and time. Able to follow 1 and 2 step commands. Motor: Moves all extremities equally. Exam otherwise unchanged. 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 Past medical history includes migraines, remote history of PE in 2006 and 3 ischemic strokes, chronic pain in bones (PCP Dr. Rodriguez prescribes pain medications). 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 She describes grand mal seizures that began in 1999 and have occurred with unclear frequency, last episode unknown. She also reports episodes of going out in which she loses awareness without warning, is unresponsive for 45 min- 1 hr, then awakes with confusion. Last episode was twice the day before admission, but pt cannot specify the frequency of these episodes. Also describes passing out occasionally which improved with Vimpat. On home medications currently: KLP 0.5 TID LCM 100 BID GBP 900 TID No events were captured here. Patient had been DC ready but complained of chest pain. Internal medicine was consulted. Pain was palpable. Patient was started on NSAIDS. A complete workup including CT chest for PE and d-dimer was done for the pain. Above workup was negative. Patient has been ready for DC since 07/07 but demanding that she cannot leave due to pain and a non-specific rash. She has been complaining of various and several symptoms daily. She initially complained of rib pain, then complained of chest pain which was palpable and then a rash that is spreading. On my evaluation - rash appears benign and likely reaction to lidoderm patch. Today patient states that she feels uncomfortable being home and daughter feels uncomfortable taking her home since she has low blood pressure. Low BP has been asymptomatic and maybe due to patient being in bed all day. Will ask for recommendations from IM team regarding the same. Discussed with patient that all further payment will be out of pocket. Attempted to call daughter but have unable to reach her this AM. Ms. Napier spoke with her on 07/07 and she was agreeable to pick patient up today between 3 AND 4 pm. SIGNATURE: Fern Oropeza MD PATIENT NAME: Edgardo Denson DATE: July 09, 2018 TIME: 10:28 AM PAGER/CONTACT #: [phone] ? E[facility]LEPSY CENTER STAFF NOTE ? [facility] STAFF PHYSICIAN NOTE OF PERSONAL INVOLVEMENT IN CARE I have reviewed the progress note obtained and documented by the nurse practitioner and I personally participated in the mejias components. I have discussed the case and management of the patient's care. The following comments revise or confirm relevant mejias components of the note. ? IMPRESSION: This is a 52 year old year old admitted with history of events of unclear etiology admitted for diagnostic video EEG evaluation - suggestive for paroxysmal nonepileptic events. MRI in 2016 was read as normal. EEG no epileptiform discharges. Risk factors for epilepsy include head injuries, strokes and viral meningitis Today pt complaints of pain the lower left chest, can not take deep brath. was hypoxic x1 only, has a hx of DVT and PEs in the past ? ? The day's recording was personally reviewed and the results are summarized below. VIDEO-EEG MONITORING DAILY REPORT: Interictal findings: to be reviewed ? Ictal findings: none overnight ?It was arranged to d/c patient today, again she refuses to leave We tried to contact the daughter who lives with her and she is not answering We called for PT assessment, pt is stable to go home Due to asymptomatic low BP we called IM again, hydration was recommended Patient needs to be d/c tomorrow, she is stable and there is no need to continue this hospitalization. Patient was explained about this for the last 48 hours. ? The treatment plan was discussed in detail with the patient/patient family members. ?Time for questions was given and answers were discussed. ?The patient/patient family members agree with the treatment plan. Deborah Rosas NT Observed: 07/09/2018 Status: COMPLETED Source: [place] 10:10 AM [facility] REPOSITORY HNO ID: [id number] Author: Sheila (Pt) Keena Service: Physical Therapy Author Type: Physical Therapist Type: Therapy (PT/OT/Speech/Resp) Filed: 07/09/2018 10:18 AM Note Text: Physical Therapy Evaluation SERVICE DATE: 07/09/2018 SERVICE TIME: 914 to 999 ROOM: M060- Recommended Discharge Disposition: Home Anticipated Discharge Needs: Supervision at Home (d/t patient reports and concerns of h/o of blacking out with on warning) PT Recommendations to Nursing: Ambulate without device;To bathroom;In halls;Transfer to/from chair;OOB for Meals;With assist of 1 person Device: No Device. Use gait belt. PT 6 Clicks Score: 22 Isolation Type: None ASSESSMENT : PT consult per MD and RN for safety assessment for home d/t patient's concerns of falls and blacking out. Patient demonstrated steady balance with gait (CGA for safety only on assessment today), WFL strength/ROM, and good tolerance for sitting and standing during multiple BP assessments which did not show signs of orthostatic hypotension. Patient has been living on first floor at home. Reports daughter can be home with her. Patient is safe from a functional mobility perspective to return to prior living situation with support from her daughter as prior to admit. No evidence today of the black-outs/seizures that the the patient is concerned about and therefore gait was steady and safe in the hallway. Pt reports walking in the jimenez with nursing during her admission. Will continue with skilled PT during admission for gait, balance, and stair training to meet goals below and increase endurance and independence with standing activities. Patient Disposition at Start of Session: Supine in Bed;Bed Alarm Patient Disposition at End of Session: Supine in Bed;Bed Alarm;Call Ornelas in Reach Tolerated Full Session Physical Therapy Problem List: Pain;Decreased Activity Tolerance;Functional Mobility Impairment Patient /Caregiver Goals: Go Home Goals for Plan of Care: Transfer sit to/from stand with: Independent Ambulate with: Independent Distance: 400ft Ambulate up and down steps with: Independent Number of steps: 2 Rehab Potential: Good PLAN: Treatment Frequency (times per week): 2 Current admission Treatment Interventions: Education;Functional Mobility Training;Balance Training Plan of Care developed with: Patient TREATMENT INTERVENTIONS: Therapy Diagnosis: Reduced mobility-other Interventions Provided: Evaluation;Gait Training (25808) $ Evaluation-Low (74739) Billed Units: 1 unit Gait Training (36476) Treatment Minutes: 10 1 unit Skilled Intervention(s): -Gait training x 200ft with CGA for safety. Also wheelchair follow for assessment/training d/t patient's concern for onset of seizure activity -Education with PT plan, mobility plan with nursing, OOB with assist, gait 2x day, supervision at home from family -Static sitting and standing pre-gait for slow advancement of activity to patient tolerance and for vital sign monitoring to ensure safety with gait Total Timed Code Treatment Minutes: 10 Total Treatment Time (minutes): 45 FUNCTIONAL G CODE: PT 6 Clicks Score: 22 (07/09/18914) Mobility: Walking and Moving Around Current Status (G8978): CJ (07/09/18914) Mobility: Walking and Moving Around Goal Status (G8979): CI (07/09/18914) Based on clinical assessment and the score on the 6 Clicks Functional Assessment Tool, the G code and corresponding severity modifiers are documented above. SUBJECTIVE: Current Hospital Course: 52 yo female admitted with c/o possible seizures. No signs of seizures on monitors during admission. Reason for Physical Therapy Consult : Post acute placement Relevant Past Medical History: CVA. PE. Depression. Patient Report: I have been walking in the halls with nursing. My pain gets worse when I sit up Home Environment Patient Lives With: Family Assistance Available: 24 Hour Entry To Home: Stairs Number Of Stairs Into Home: 2 Equipment Owned: Wheeled Walker Prior Functional Level: Within Functional Limits Prior Functional Level Comments: marga OBJECTIVE: Mini Cog Score: 5 (07/09/18914) CURRENT FUNCTIONAL STATUS: Current Functional Mobility Assist Level Additional Information Rolling Independent Supine to Sit Modified Independent Sit to Supine Modified Independent Scooting Modified Independent Sit to Stand Stand By Assistance Stand to Sit Stand By Assistance Bed to Chair Toilet/Commode Gait Contact Guard Assistance Gait Device: None Gait Distance (feet): 200ft Stairs Curb Step Car Transfer BP 70/45 supine, 90/50 sitting, 88/59 standing, 113/46 after gait Please see discipline specific clinical documentation flowsheet for complete details for this therapy evaluation/treatment. SIGNATURE: Sheila Brink PT PATIENT NAME: Edgardo Denson DATE: July 09, 2018 TIME: 10:10 AM CASE MANAGEM Observed: 07/09/2018 Status: COMPLETED Source: [place] [address]:[id number] AM [facility] REPOSITORY HNO ID: [id number] Author: Georgina Schulz (Sw) Service: Social Work Author Type: Asphalt Paver Type: Care Mgt Progress Note Filed: 07/09/2018 8:40 AM Note Text: CARE MANAGEMENT PROGRESS NOTE SERVICE DATE: 07/09/2018 SERVICE TIME: 8:39 AM LOS: 10 days Notified to complete Detailed Notice of Discharge form from . Form was completed and faxed to [phone]. Copy of completed form was also faxed into [employer]. SIGNATURE: Georgina Schulz, DONY, LENIN PATIENT NAME: Edgardo Denson DATE: July 09, 2018 TIME: 8:39 AM PAGER/CONTACT #: [phone] PLAN OF CARE Observed: 07/08/2018 Status: COMPLETED Source: [place] 4:23 PM [facility] REPOSITORY HNO ID: [id number] Author: Alan Marquis Service: General Internal Medicine Author Type: Resident Type: Plan of Care Filed: 07/08/2018 4:29 PM Note Text: INTERNAL MEDICINE CONSULT PLAN OF CARE NOTE Saw pt at bedside at the request of primary team because of her c/o chest pain and rash. Physical exam was similar to yesterday. Chest pain is reproducible even with light superficial touch; no swelling seen in the L vs R chest wall. Rash below the L breast is unimpressive -- again seen were few scattered papules with some scabbed excoriations. Please refer to yesterday's consult note for details on recommendations. Alan Marquis III, DO Internal Medicine PGY-2 [id number] 07/08/2018 4:28 PM PROGRESS Observed: 07/08/2018 Status: COMPLETED Source: [place] 11:40 AM [facility] REPOSITORY HNO ID: [id number] Author: Darleen Zayas Service: Neurology Epilepsy Author Type: Physician Type: Progress Notes Filed: 07/08/2018 5:14 PM Note Text: NEUROLOGY EPILEPSY MONITORING UNIT ([facility]U) PROGRESS NOTE SERVICE DATE: 07/08/2018 SERVICE TIME: 11:41 AM Subjective No seizures overnight. Patient has several pain complaints Home Anti Epileptic Drugs: KLP 0.5 TID LCM 100 BID GBP 900 TID Anti Epileptic Drugs here: KLP 0.5 TID LCM 100 BID GBP 900 TID Objective 07/07/18 2338 07/08/18 0345 07/08/18 0800 07/08/18 1038 BP: 97/63 (!) 84/48 90/52 92/54 Pulse: 71 72 68 83 Resp: 16 16 16 16 Temp: 36.7 ?C (98 ?F) 36.7 ?C (98 ?F) 36.7 ?C (98.1 ?F) 36.4 ?C (97.6 ?F) TempSrc: Oral Oral Oral Oral SpO2: 94% 94% 94% 98% Weight: Height: EKG, Telemetry, EEG, Monitors AND Alarms are on: Yes ? Written order: Remains standing. Seizure detection software on: Yes ? photovoltaic testing technician has been notified: Yes ? turn machine operator has been notified: Yes EXAM: Mental Status: Alert and oriented to person, place and time. Able to follow 1 and 2 step commands. Motor: Moves all extremities equally. Exam otherwise unchanged. 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 Past medical history includes migraines, remote history of PE in 2006 and 3 ischemic strokes, chronic pain in bones (PCP Dr. Rodriguez prescribes pain medications). 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 She describes grand mal seizures that began in 1999 and have occurred with unclear frequency, last episode unknown. She also reports episodes of going out in which she loses awareness without warning, is unresponsive for 45 min- 1 hr, then awakes with confusion. Last episode was twice the day before admission, but pt cannot specify the frequency of these episodes. Also describes passing out occasionally which improved with Vimpat. On home medications currently: KLP 0.5 TID LCM 100 BID GBP 900 TID No events were captured here. Patient had been DC ready but complained of chest pain. Internal medicine was consulted. Pain was palpable. Patient was started on NSAIDS. A complete workup including CT chest for PE and d-dimer was done for the pain. Above workup was negative. Patient has been ready for DC since 07/07 but demanding that she cannot leave due to pain and a non-specific rash. She has been complaining of various and several symptoms daily. She initially complained of rib pain, then complained of chest pain which was palpable and then a rash that is spreading. On my evaluation - rash appears benign and likely reaction to lidoderm patch. Discussed with patient that all further payment will be out of pocket. Attempted to call daughter but have unable to reach her this AM. Ms. Napier spoke with her on 07/07 and she was agreeable to pick patient up today between 3 AND 4 pm. SIGNATURE: Fern Oropeza MD PATIENT NAME: Edgardo Denson DATE: July 08, 2018 TIME: 11:40 AM PAGER/CONTACT #: [phone] EPILEPSY CENTER STAFF NOTE ? [facility] STAFF PHYSICIAN NOTE OF PERSONAL INVOLVEMENT IN CARE I have reviewed the progress note obtained and documented by the nurse practitioner and I personally participated in the mejias components. I have discussed the case and management of the patient's care. The following comments revise or confirm relevant mjeias components of the note. ? IMPRESSION: This is a 52 year old year old admitted with history of events of unclear etiology admitted for diagnostic video EEG evaluation - suggestive for paroxysmal nonepileptic events. MRI in 2016 was read as normal. EEG no epileptiform discharges. Risk factors for epilepsy include head injuries, strokes and viral meningitis Today pt complaints of pain the lower left chest, can not take deep brath. was hypoxic x1 only, has a hx of DVT and PEs in the past ? ? The day's recording was personally reviewed and the results are summarized below. VIDEO-EEG MONITORING DAILY REPORT: Interictal findings: to be reviewed ? Ictal findings: none overnight ?It was arranged to d/c patient today, Patient today complaints that her pain in the lateral left chest wall is still present This has been her new complaint for the last 3 days since she was told that she will be d/c. IM was consulted and it was recommended to conntinue with pain aid and she is also stable to be discharged. 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 The treatment plan was discussed in detail with the patient/patient family members. ?Time for questions was given and answers were discussed. ?The patient/patient family members agree with the treatment plan. Darleen Viramontes M.D SOCIAL WORK Observed: 07/07/2018 Status: COMPLETED Source: [place] 12:21 PM [facility] REPOSITORY O ID: [id number] Author: Thaddeus Tirado (Sw) Service: Social Work Author Type: Asphalt Paver Type: Social Work Filed: 07/07/2018 12:24 PM Note Text: SOCIAL WORK PROGRESS NOTE SERVICE DATE: 07/07/2018 SERVICE TIME: 12:20pm Patient to be ready for DC tomorrow. Per patient report, she has been unable to reach her daughter regarding plan for transportation home. Dr. Dodge requests this press writer's assistance in securing transport home. BEV contacted patient's daughter, Lindsey at [phone]. She informs she has not had phone service recently, but voices agreement for plan for DC tomorrow informing of an ability to transport patient around 3-4:00pm. No additional needs noted at this time. SW will continue to follow as needed. SIGNATURE: HAILE Magdaleno PATIENT NAME: Edgardo Denson DATE: July 07, 2018 TIME: 12:21 PM PAGER/CONTACT #: [phone] CONSULT Observed: 07/07/2018 Status: COMPLETED Source: [place] 10:53 AM [facility] REPOSITORY HNO ID: [id number] Author: Pamella Rodriguez Service: General Internal Medicine Author Type: Physician Type: Consults Filed: 07/07/2018 4:58 PM Note Text: MEDICINE CONSULT TEAM INITIAL CONSULT SERVICE DATE: 07/07/2018 SERVICE TIME: 11:00 AM REASON FOR CONSULT: Concern for DVT REQUESTING PHYSICIAN: Dr. Dar Zayas PRIMARY CARE PHYSICIAN: Ryan Castano MD Subjective HPI: Ms. 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 Medicine team consulted for concern for PE and questions regarding work-up for same. Spoke to Ms. Mayorga (primary team PA) on the telephone on 07/05 after patient was reporting L-sided pleuritic chest pain w/ deep inspiration and recent dizziness. Team was asking whether a CTPE would be appropriate. Reviewed details of patient's case including symptoms (R-sided pleuritic chest discomfort and dizziness, no SOB), patient's vitals: afebrile, HDS (BPs 90/50s, patient's b/l), satting well on RA; her past hx of DVT/PE, IVC filter placement, anticoagulation, negative hypercoag W/U in 2016. CXR (07/05) had been unrevealing. No EKG. Calculated that patient was very low risk for PE (GENEVA 3, WELLS 1, PESI very low risk) with scores only for hx of PE. Recommended D-dimer given patient's low pre-test probability for PE. Primary team happy with advice and ordered D-dimer which was negative. Team also ordered a b/l LE DVT U/S which was negative for DVT. Team now requesting patient to be seen at bedside. Today, patient reports ongoing and worsening L-sided pleuritic chest pain. Notes that its worst with deep inspiration and to palpation. She has a hx of rib fractures and says that the pains feels very similar. Also noting recent rash below her L breast in area where lidocaine patch had been placed. Denies any SOB, cough, sputum, hemoptysis, palpitations, heartburn. She denies have any further LOC since admission. Denies any history of Shingles. PAST MEDICAL HISTORY Diagnosis Date - Asthma - Cellulitis and abscess of leg, except foot 03/01/2007 Orig Leg issue 1996 - Chronic pain syndrome 05/27/2008 Post-herpetic Neuralgia - Depression, reactive - DJD (degenerative joint disease), cervical - Esophageal reflux Hemorrhagic gastritis / hx GI - Headache - Muscle spasm BZD - Other convulsions 02/25/2009 - PE (pulmonary embolism) 07/2006 - PMH - PAST MEDICAL HISTORY OF 07/19/2005 h/o right leg DVT, PE, s/p IVC filter - PMH - PAST MEDICAL HISTORY OF 2005 h/o Osteomyelitis infection - Sleep disturbance, unspecified sleep study 12/21 didn't show sleep apnea but some central apneas - Syncope Dr. Rae / [place] - Tobacco use disorder - Tubulovillous adenoma of colon 2008 Sigmoid PAST SURGICAL HISTORY Procedure Laterality Date - DELIVERY ONLY , low transverse - COLONOSCOP W/ OR W/O [facility] SPEC Colonoscopy - EGD W/O OR W/BRUSH/WASH EGD - LAPAROSCOPIC CHOLEYCYSTECTOMY Cholecystectomy, lap - PAST SURGICAL HISTORY OF 07/20 s/p IVC filter by Dr. Mcpherson - PAST SURGICAL HISTORY OF leg debridements for MRSA FAMILY HISTORY Problem Relation Age of Onset - Ischemic Heart Disease Mother - Stroke Mother - Diabetes Father - other (renal cell cancer) Father Testical cancer, primary renal cancer - other (testicular cancer) Father - Lipids Sister - Lipids Brother - Colon Cancer Paternal Grandmother - other (stomach cancer) Paternal Grandmother - Breast Cancer No Family History Social History Substance Use Topics - Smoking status: Current Every Day Smoker Packs/day: 0.50 Years: 12.00 Types: Cigarettes - Smokeless tobacco: Never Used Comment: Currently smokes two cigarettes a day - Alcohol use No MEDICATIONS Current hospital medications: acetaminophen 650 mg tab(s) (TYLENOL) 650 mg ORAL q 8 HR iv contrast (radiology procedure) INTRAVENOUS DIRECTED PRN lacosamide 100 mg tab(s) (VIMPAT) 100 mg ORAL BID gabapentin 900 mg cap(s) (NEURONTIN) 900 mg ORAL TID lidocaine 5 % 1 Patch (LIDODERM) 1 Patch TRANSDERMAL DAILY lidocaine patch - REMOVE OTHER AT BEDTIME lidocaine - VERIFY PATCH OTHER q 8 H 0.9% NaCl 2-10 mL 2-10 mL INTRAVENOUS q 12 H LORazepam 2 mg injection (ATIVAN) 2 mg INTRAVENOUS q 5 MIN PRN diphenhydrAMINE 25 mg (BENADRYL) 25 mg ORAL q 8 H PRN dicyclomine 20 mg tab(s) (BENTYL) 20 mg ORAL QID PRN clonazePAM 0.5 mg tab(s) (KlonoPIN) 0.5 mg ORAL TID PRN promethazine 25 mg tab(s) (PHENERGAN) 25 mg ORAL q 8 H PRN cetirizine 10 mg tab(s) (ZyrTEC) 10 mg ORAL DAILY fluticasone-vilanterol 200-25 mcg/dose 1 Inhalation (BREO ELLIPTA) 1 Inhalation INHALATION DAILY potassium chloride ER 20 mEq tab(s) (K-DUR, KLOR-CON) 20 mEq ORAL -- pantoprazole DR 20 mg tab(s) (PROTONIX) 20 mg ORAL DAILY venlafaxine ER 300 mg cap(s) (EFFEXOR XR) 300 mg ORAL DAILY dabigatran etexilate 150 mg cap(s) (PRADAXA) 150 mg ORAL BID ergocalciferol (vitamin D2) 50,000 Units cap(s) (DRISDOL) 50,000 Units ORAL q FRI midazolam (PF) 5 mg injection (VERSED) 5 mg INTRAMUSCULAR q 24 H PRN oxyCODONE-acetaminophen 5-325 mg 1 tablet (PERCOCET) 1 tablet ORAL q 6 H PRN loperamide 2 mg cap(s) (IMODIUM) 2 mg ORAL TID PRN ALLERGIES Allergen Reactions - Cellacefate Swelling - Depakote [Divalproe* GI Upset - Dilantin [Phenytoin* GI Upset - Divalproex Other: See Comments Abdominal pain - Fish Containing Pro* Unknown - Penicillin Swelling - Penicillin G GI Upset tolerates zosyn . sdm. 03/2007 TOLERATES KEFLEX 11-12-10 - Shrimp Unknown - Sulfa (Sulfonamide * GI Upset Gastritis - Sulfamethoxazole-Tr* Unknown - Topamax [Topiramate] Mental Status Change - Haldol [Haloperidol] Mental Status Change, Cough, GI Upset, Itching COMPLETE REVIEW OF SYSTEMS: PAIN ASSESSMENT: CURRENTLY HAVING PAIN; see HPI GENERAL: No weight loss, malaise or fevers NECK: Negative for lumps, goiter, pain and significant neck swelling RESPIRATORY: Negative for cough, hemoptysis, wheezing, COPD, dyspnea or shortness of breath CARDIOVASCULAR: Chest wall discomfort GI: No nausea, vomiting, or diarrhea : No history of dysuria, frequency or incontinence MUSCULOSKELETAL: Hx fibromyalgia SKIN: Negative for lesions, rash, and itching PSYCH: Negative for sleep disturbance, mood disorder and recent psychosocial stressors HEMATOLOGY/LYMPHOLOGY: Negative for prolonged bleeding, bruising easily or swollen nodes ENDOCRINE: Negative for cold or heat intolerance, polyuria, polydipsia and goiter NEURO: No history of headaches, syncope, paralysis, seizures or tremors Objective PHYSICAL EXAM: BP Temp Temp src Pulse Resp SpO2 07/07/18 0908 99/60 - - 75 - - 07/07/18 0847 90/61 - - 78 - - 07/07/18 0800 - - - 60 - - 07/07/18 0732 80/55 36.7 ?C (98.1 ?F) Oral (!) 55 18 93 % 07/07/18 0424 94/59 36.3 ?C (97.4 ?F) Oral 74 18 96 % 07/07/18 0005 93/52 36.5 ?C (97.7 ?F) Oral 69 18 98 % 07/06/18 2020 (!) 90/47 37 ?C (98.6 ?F) Oral 78 18 94 % 07/06/18 1635 108/72 36.6 ?C (97.8 ?F) Oral 96 16 97 % 07/06/18 1440 118/72 36.4 ?C (97.5 ?F) Oral 90 16 97 % Body mass index is 23.04 kg/m?. GENERAL: Healthy, alert, no distress, cooperative, lying in bed w/ BEM SKIN: Few erythematous lesions below the L breast, non-vesicular, non-dermatomal OROPHARYNX: Missing teeth NECK: No jugulovenous distention, No carotid bruits, Carotid pulse normal contour, Supple LUNGS: CTAB Chest wall: Very tender to palpation below L breast CARDIAC: Normal S1 and S2; no rubs, murmurs, or gallops ABDOMEN: Abdomen soft, non-tender, BS normal, No masses or organomegaly EXTREMETIES: Extremities normal, no deformities, edema, clubbing or skin discoloration. Good capillary refill., No ulcers NEURO: AOx3, pleasant, no focal deficits LABS: CBC:No results for input(s): WBC, HB, HCT, PLT, MCV, RDWCV, NEUTP, ABSNEUT, LYMPHP, MONOP, EODINP in the last 168 hours. COAG: No results for input(s): APTT, INR in the last 168 hours. BMP: Recent Labs 07/05/18 1517 GLUC 89 NA 138 K 4.4 CHLOR 101 CO2 24 ANION 13 BUN 11 CREAT 0.80 CHEM: Recent Labs 07/05/18 1517 ALB 4.0 TPROT 7.4 CA 9.3 HEPATIC: Recent Labs 07/05/18 1517 ALKPHOS 122 ALT 14 AST 17 TBILI <0.2* U Tox: Phencyclidine Date Value Ref Range Status 06/30/2018 Negative Negative Final Comment: Cutoff threshold at 25 ng/mL. Cocaine Urine Date Value Ref Range Status 06/30/2018 Negative Negative Final Comment: Cutoff threshold at 300 ng/mL. Amphetamines Date Value Ref Range Status 06/30/2018 Negative Negative Final Comment: Cutoff threshold at 1000 ng/mL. THC Date Value Ref Range Status 10/23/2008 None Det None Det Final Comment: Cutoff threshold at 50 ng/mL. Opiates Date Value Ref Range Status 06/30/2018 Negative Negative Final Comment: Cutoff threshold at 300 ng/mL. IMAGING: LEG DVT TRICIA MARTIN J3-5 Final Result XR CHEST 1V FRONTAL PORT Final Result IMPRESSION: Lines, tubes, and devices: None Lungs and pleura: Upper lobe predominant emphysematous changes are seen in the lungs. Blunting of the left costophrenic angle may represent a small pleural effusion with associated atelectasis. The right lung is free of focal consolidation. There is no pneumothorax. Cardiomediastinal silhouette: Stable cardiomediastinal silhouette. The heart size is normal. Furniture Mover: TONI Transcribe Date/Time: Jul 05 2018 12:31P Dictated by : LEANDRO MULLEN MD This examination was interpreted and the report reviewed and electronically signed by: LEANDRO MULLEN MD on Jul 05 2018 12:33PM EST Impression/Recommendations Ms. 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 Patient with intermittent pleuritic L-sided chest pain reproducible on exam w/ palpation. Had developed skin irritation in sitting of lidocaine patch use, now resolving. Lesions not c/w Shingles. Patient also has history of chronic pain and possible diagnosis of fibromyalgia, may have altered pain perception. Patient has no evidence of DVT or PE based on U/S imaging and D-dimer testing in a patient with a low pre-test probability of PE. Has been appropriately anticoagulated and has IVC filter in-situ. Recommendations: - No further testing indicated for PE - Consider dedicated rib x-ray to assess for rib fracture (standard CXR is poor at detecting rib fractures) - Would recommend maximizing non-opioid therapy for patient's pain (of note, patient appears to have filled a large prescription for Percocet while inpatient). Would start topical therapy (consider Capsaicin if patient did not see improvement with lidocaine patch). Schedule Tylenol 1g TID . Recommend starting scheduled ibuprofen or naproxen as well given normal renal fxn. - Continue Pradaxa for hx of DVT/PE - Patient appears to have been lost to F/U by Vascular Medicine (last visit appears to be 2008). Recommend outpatient F/U with Vascular Medicine to discuss need for life-long anticoagulation and whether she may be amenable to IVC filter removal. SIGNATURE: Carlos A Lin MD PATIENT NAME: Edgardo Denson DATE: July 07, 2018 TIME: non-weight bearing PAGER/CONTACT #: [phone] [facility] STAFF PHYSICIAN NOTE OF PERSONAL INVOLVEMENT IN CARE I have reviewed the consult note obtained and documented by the resident and I personally participated in the mejias components. I have discussed the case and management of the patient's care. The following comments revise or confirm relevant mejias components of their note. IMPRESSION: This is a 52F with h/o VTE, CVA, chronic pain admitted to the epilepsy monitoring unit for workup of drop attacks. Consult for mgmt of ongoing L-sided chest wall pain. Pt reports 8/10 L lower chest pain that is sharp and constant and worsens when she moves. She denies SOB. Reports no similar pain in the past. Pain started after the first night in the hospital when she thought she slept on her tele box and has been ongoing since. Exam: Sitting up in chair in NAD, talkative Lungs clear with poor effort RRR Chest pain TTP below L breast A few scattered pink papules with some excoriation below the L breast PLAN: # Chest wall pain: Very low suspicion for VTE as cause of pain in pt without tachycardia or hypoxemia, negative d-dimer and on therapeutic dabigatran. Pt is tender on exam - suspect chest wall pain and recommend symptomatic mgmt. Reasonable to trial NSAIDs (such as ibuprofen 600mg) and topicals like capsaicin or lidocaine gel (would stop lidoderm patches given no relief with this topical measure). Thanks for the consult. We will sign off. Please call back with any questions. SIGNATURE: Pamella Rodriguez MD PAGER: [phone] DATE of SERVICE: 07/07/2018 TIME of SERVICE: 4:54 PM PROGRESS Observed: 07/07/2018 Status: COMPLETED Source: [place] 8:36 AM [facility] REPOSITORY HNO ID: [id number] Author: Darleen Dar Zayas Service: Neurology Epilepsy Author Type: Physician Type: Progress Notes Filed: 07/07/2018 3:04 PM Note Text: NEUROLOGY EPILEPSY MONITORING UNIT ([facility]) PROGRESS NOTE SERVICE DATE: 07/07/2018 SERVICE TIME: 08:00 Subjective Patient complains of worsening of pain in left anterior inferior rib cage, worse with deep breathing and movement. She states the pain is worse than when she had broken ribs in the past and she is afraid to go home. She states there is a rash in the area of pain. Pt does not report any worsening of dizziness or shortness of breath. Lidocaine patches have not improved pain. She requests that IM see her. No more events since the 3E on 07/04. Patient is still trying to contact her daughter about picking her up from the hospital. I informed patient that I spoke with internal medicine by phone on Tuesday and that they advised that she is low-risk for PE. I discussed that the D-dimer test was negative, and the BLE doppler US test was negative for DVT. Advised her that I will consult IM to come to bedside today. Home Anti Epileptic Drugs: KLP 0.5 TID LCM 100 BID GBP 900 TID ? Anti Epileptic Drugs here: KLP 0.5 TID LCM 100 BID GBP 900 TID Objective 07/07/18 0005 07/07/18 0424 07/07/18 0732 07/07/18 0800 BP: 93/52 94/59 80/55 Pulse: 69 74 (!) 55 60 Resp: Temp: 36.5 ?C (97.7 ?F) 36.3 ?C (97.4 ?F) 36.7 ?C (98.1 ?F) TempSrc: Oral Oral Oral SpO2: 98% 96% 93% Weight: Height: EKG, Telemetry, EEG, Monitors AND Alarms are on: Yes ? Written order: Remains standing. Seizure detection software on: Yes ? photovoltaic testing technician has been notified: Yes ? turn machine operator has been notified: Yes EXAM: NEUROLOGICAL EXAM: MENTAL STATUS The patient is oriented to person, place, and time. Speech is clear with normal language. She is attentive and drowsy this morning. CRANIAL NERVES Extraocular movements are full. There is no nystagmus.Facial strength/movement is symmetric. Hearing is intact to speech. Palate elevates normally. Shoulder shrug is intact. Tongue protrudes midline. MOTOR EXAM Tone and bulk are normal. Exam of BUEs limited by pain in torso. No tremor or other abnormal movements noted. GAIT Deferred. SKIN: +Edema and tenderness over left anterior inferior rib cage. No rash, lesions, or other abnormalities noted in area of pain. DATA: Diagnostic tests reviewed for today's visit: Most recent labs and imaging results. Component Latest Ref Rng AND Units 07/05/2018 Protein, Total 6.3 - 8.0 g/dL 7.4 Albumin 3.9 - 4.9 g/dL 4.0 Calcium 8.5 - 10.2 mg/dL 9.3 Bilirubin, Total 0.2 - 1.3 mg/dL <0.2 (L) Alkaline Phosphatase 34 - 123 U/L 122 AST 13 - 35 U/L 17 Glucose 74 - 99 mg/dL 89 BUN 7 - 21 mg/dL 11 Creatinine 0.58 - 0.96 mg/dL 0.80 Sodium 136 - 144 mmol/L 138 Potassium 3.7 - 5.1 mmol/L 4.4 Chloride 97 - 105 mmol/L 101 CO2 22 - 30 mmol/L 24 Anion Gap 9 - 18 mmol/L 13 ALT 7 - 38 U/L 14 eGFR- >60 eGFR-All Other Races . >60 d Dimer <500 ng/mL FEU 440 CXR on 07/05/2018: IMPRESSION: Lines, tubes, and devices: ?None Lungs and pleura: ?Upper lobe predominant emphysematous changes are seen in the lungs. ?Blunting of the left costophrenic angle may represent a small pleural effusion with associated atelectasis. ?The right lung is free of focal consolidation. ?There is no pneumothorax. Cardiomediastinal silhouette: ?Stable cardiomediastinal silhouette. ?The heart size is normal. Lower Extremity Venous Duplex Bilateral/Complete: IMPRESSION : RIGHT SIDE - DEEP VEINS Negative for acute deep vein thrombosis. Lymph node in the inguinal area measures approximately 2.0x0.5x1.1cm. ? RIGHT SIDE - SUPERFICIAL VEINS Unable to visualize the great saphenous vein. ? LEFT SIDE - DEEP VEINS Technically limited study. Negative for acute deep vein thrombosis in vessels visualized. Unable to visualize the distal external iliac vein and common femoral vein. Non vascularized complex structure noted in the popliteal fossa measuring approximately 3.1x1.3x2.1cm. Unable to visualize the external iliac and common femoral veins and abnormal flow noted in the femoral vein, clinical correlation is ?advised may wish other means of evaluation. ? LEFT SIDE - SUPERFICIAL VEINS Unable to visualize the great saphenous vein. ? Technologist: Joaquín Roach RVT Ordering physician: DARLEEN ZAYAS ? Interpreting physician: KRISTINA Burton MD ? 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 Past medical history includes migraines, remote history of PE in 2006 and 3 ischemic strokes, chronic pain in bones (PCP Dr. Rodriguez prescribes pain medications). 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 She describes grand mal seizures that began in 1999 and have occurred with unclear frequency, last episode unknown. She also reports episodes of going out in which she loses awareness without warning, is unresponsive for 45 min- 1 hr, then awakes with confusion. Last episode was twice the day before admission, but pt cannot specify the frequency of these episodes. Also describes passing out occasionally which improved with Vimpat. Patient's home meds have been restarted. No new events since 07/04. AEDs: KLP 0.5 TID LCM 100 BID GBP 900 TID ? -Seizure report: 1E on 06/30 at 15:50 - Patient states she felt disoriented and dizzy 2E on 07/02 at 11:18 - Patient did not recall event, but when this nurse attempted to wake patient, pt was unresponsive and did not respond to sternal rub. Within a minute or so, patient woke up and was confused regarding event. 3E on 07/04 - weak, dizziness, can't keep eyes open to save my life ? -Worsening chest wall pain, dizziness, hx PE in 2006 CXR showed possible small pleural effusion and atelectasis in the region of concern. Exam shows overlying edema and tenderness over anterolateral aspect of left ribs 10-12. No lesions, ecchymosis, or other abnormalities. Spoke with IM by phone. CXR was reviewed by IM, and no effusion or atelectasis seen. Musculoskeletal pain highly suspected. Recommended scheduled Tylenol. IM to see patient at bedside today. -Consider Esequiel consult either in hospital or outpatient. ? ? Continue video-EEG monitoring ? Consult IM at bedside. ? Home meds restarted yesterday. ? Discuss options for counseling ? Activation procedures: hyperventilation, photic stimulation, sleep deprivation ? Seizure precautions ? Rescue plan in place: 1-2mg of lorazepam (Ativan) IV as needed for prolonged motor epileptic seizure greater than 3 minutes and or 3rd motor epileptic seizure within 8 hours. ? D/C tbd ? Follow-up after discharge with Dr. Ortiz ? The treatment plan was discussed in detail with the patient. Time for questions was given and answers were discussed. The patient agreed with the treatment plan. SIGNATURE: NURIS Gracia PATIENT NAME: Edgardo Denson DATE: July 07, 2018 TIME: 8:36 AM PAGER/CONTACT #: [phone] EPILEPSY CENTER STAFF NOTE ? [facility] STAFF PHYSICIAN NOTE OF PERSONAL INVOLVEMENT IN CARE I have reviewed the progress note obtained and documented by the nurse practitioner and I personally participated in the mejias components. I have discussed the case and management of the patient's care. The following comments revise or confirm relevant mejias components of the note. ? IMPRESSION: This is a 52 year old year old admitted with history of events of unclear etiology admitted for diagnostic video EEG evaluation - suggestive for paroxysmal nonepileptic events. MRI in 2016 was read as normal. EEG no epileptiform discharges. Risk factors for epilepsy include head injuries, strokes and viral meningitis Today pt complaints of pain the lower left chest, can not take deep brath. was hypoxic x1 only, has a hx of DVT and PEs in the past ? ? The day's recording was personally reviewed and the results are summarized below. VIDEO-EEG MONITORING DAILY REPORT: Interictal findings: to be reviewed ? Ictal findings: none overnight ? PLAN: veeg continues with left lateral chest wall pain, will call IM for input if stable d/c tomorrow The treatment plan was discussed in detail with the patient/patient family members. Time for questions was given and answers were discussed. The patient/patient family members agree with the treatment plan. ? Darleen Zayas MD D DIMER Collected: 07/05/2018 Status: F Source: [place] 3:17 PM [facility] REPOSITORY TYPE CODE TESTS RESULT OUT OF REFERENCE UNITS RANGE LAB DDMER <500 ng/mL FEU D dimer 440 Result Comment: The D-dimer assay can be used to exclude pulmonary embolism (PE) and deep vein thrombosis (DVT) in conjunction with a low pre-test probability. For patients with a suspected DVT, a D Dimer level below 500 ng/mL FEU has a negative predictive value of >=99.0%, a sensitivity of >=97.0%, and a specificity of >=35.8%. For patients with a cruz spected PE, a D Dimer level below 500 ng/mL FEU has a negative predictive value of >=98.6%, a sensitivity of >=96.6%, and a specificity of >=38.9%. Performed By: #### DDMER, CMP #### [facility] [address] [address] COMP METABOLIC PANEL Collected: 07/05/2018 Status: F Source: [place] 3:17 PM [facility] REPOSITORY TYPE CODE TESTS RESULT OUT OF REFERENCE UNITS RANGE LAB TP 6.3-8.0 g/dL Protein, Total 7.4 LAB ALB 3.9-4.9 g/dL Albumin 4.0 LAB CA 8.5-10.2 mg/dL Calcium, Total 9.3 LAB TBIL 0.2-1.3 mg/dL Low Bilirubin, Total <0.2 LAB ALKP 34-123 U/L Alkaline Phosphatase 122 LAB AST 13-35 U/L AST 17 LAB GLU 74-99 mg/dL Glucose 89 Result Comment: The [place] [employer] (ADA) provides guidance for cutoff values for fasting glucose and random glucose. The ADA defines fasting as no caloric intake for at least 8 hours. Fas ting plasma glucose results between 100 to 125 mg/dL indicate increased risk for diabetes (prediabetes). Fasting plasma glucose results greater than or equal to 126 mg/dL meet the criteria for diagnosis of diabetes. In the absence of unequivocal hyperglycemia, results should be confirmed by repeat testing. In a patient with classic symptoms of hyperglycemia or hyperglycemic crisis, random plasma glucose results greater than or equal to 200 mg/dL meet the criteria for diagnosis of diabetes. Reference: Standards of Medical Care in Diabetes 2016, [place] [employer] Association. Diabetes Care. 2016.39(Suppl 1). LAB BUN 7-21 mg/dL BUN 11 LAB CRET 0.58-0.96 mg/dL Creatinine 0.80 LAB NA 136-144 mmol/L Sodium 138 LAB K 3.7-5.1 mmol/L Potassium 4.4 LAB CL 97-105 mmol/L Chloride 101 LAB CO2 22-30 mmol/L CO2 24 LAB AGAP 9-18 mmol/L Anion Gap 13 LAB ALT 7-38 U/L ALT 14 LAB GFRAA eGFR- Amer. >60 LAB GFRNAA . eGFR-All Other Races >60 Result Comment: eGFR (Estimated GFR) Units of measure: mL/min/1.73 meters squared eGFR is derived from the reexpressed MDRD Study equation using the following parameters: serum creatinine, age, gender and race. The creatinine assay has been calibrated to be traceable to IDMS. An eGFR <60 mL/min/1.73m2 for >3 months is consistent with chronic kidney disease. Refer to KDOQI guidelines for clinical interpretation. In patients with unstable renal function, e.g. those with acute kidney injury, the eGFR may not accurately reflect actual GFR. Performed By: #### NEDRA, CMP #### [facility] [address] [place], [place] [address] NUTRITION Observed: 07/05/2018 Status: COMPLETED Source: [place] 12:16 PM [facility] REPOSITORY HNO ID: [id number] Author: Colleen Orantes (Diet-T) Service: Nutrition Therapy Author Type: Cane Piler Type: Nutrition Filed: 07/05/2018 12:23 PM Note Text: NUTRITION THERAPY FOLLOW-UP NOTE SERVICE DATE: 07/05/2018 SERVICE TIME: 9:39am Anthropometrics: Height: 162.6 cm (5' 4) Current Weight: Weight: 60.9 kg (134 lb 3.2 oz) Body mass index is 23.04 kg/m?. Loss of lean body mass/visual muscle wasting: unable to assess; patient was covered up Admitting Diagnosis: Unspecified convulsions [R56.9] Present Diet Order: Regular Is the patient having any pain that is interfering with oral/enteral intake? No Allergies: ALLERGIES Allergen Reactions - Cellacefate Swelling - Depakote [Divalproe* GI Upset - Dilantin [Phenytoin* GI Upset - Divalproex Other: See Comments Abdominal pain - Fish Containing Pro* Unknown - Penicillin Swelling - Penicillin G GI Upset tolerates zosyn . sdm. 03/2007 TOLERATES KEFLEX 11-12-10 - Shrimp Unknown - Sulfa (Sulfonamide * GI Upset Gastritis - Sulfamethoxazole-Tr* Unknown - Topamax [Topiramate] Mental Status Change - Haldol [Haloperidol] Mental Status Change, Cough, GI Upset, Itching Reason for Visit: Nutrition screen: LOS > 6 days Nutrient intake assessment: Current intake of meals: 25 - 50% when documented Patient concerns/Issues: Per patient, appetite is poor due to not being hungry, tolerates current diet consistency and has nausea at times. No new weights since admission. Patient declined snacks due to, she has her own in the room. Supplement of Magic Cup twice daily pended due to meal intake only 25%-50%. She has no nutritional request. Nutrition Therapy will continue to monitor. Nursing Admission Assessment Malnutrition Score Tool: 0 Plan of Care: Recommendation Will screen again within 7 days Provide supplement of Magic Cup chocolate at lunch and dinner daily when order approved Discharge Plan: Home on diet per MD order MNT Billing Type: Routine Care/15 min 1 unit SIGNATURE: MARCIE Hensley PATIENT NAME: Edgardo Denson DATE: July 05, 2018 TIME: 12:16 PM PAGER: [phone] CASE MANAGEM Observed: 07/05/2018 Status: COMPLETED Source: [place] 10:59 AM [facility] REPOSITORY HNO ID: [id number] Author: Shruthi Monterroso Service: Care Management Author Type: (none) Type: Care Mgt Progress Note Filed: 07/05/2018 10:59 AM Note Text: CARE MANAGEMENT PROGRESS NOTE SERVICE DATE: 07/05/2018 SERVICE TIME: 10:36 AM LOS: 6 days IM letter given to patient on 07/05/18. SIGNATURE: Shruthi Monterroso Non Acoustic Operator PATIENT NAME: Edgardo Denson DATE: July 05, 2018 TIME: 10:59 AM PAGER/CONTACT #: [phone] XR CHEST 1V FRONTAL Observed: 07/05/2018 Status: F Source: [facility] 10:37 AM [facility] REPOSITORY * * *Final Report* * * DATE OF EXAM: Jul 05 2018 10:37AM COURTNEY [id number] - XR CHEST 1V FRONTAL PORT / PROCEDURE REASON: Chest pain or SOB, pleurisy or effusion suspected * * * * Physician Interpretation * * * * EXAMINATION: CHEST RADIOGRAPH (PORTABLE SINGLE VIEW AP) Exam Date/Time: 07/05/2018 10:37 AM Clinical History: Chest pain or SOB, pleurisy or effusion suspected, MQ: [id number] Comparison: 05/24/2018 RESULT: See impression. IMPRESSION: Lines, tubes, and devices: None Lungs and pleura: Upper lobe predominant emphysematous changes are seen in the lungs. Blunting of the left costophrenic angle may represent a small pleural effusion with associated atelectasis. The right lung is free of focal consolidation. There is no pneumothorax. Cardiomediastinal silhouette: Stable cardiomediastinal silhouette. The heart size is normal. Furniture Mover: PSCB Transcribe Date/Time: Jul 05 2018 12:31P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 She describes grand mal seizures that began in 1999 and have occurred with unclear frequency, last episode unknown. She also reports episodes of going out in which she loses awareness without warning, is unresponsive for 45 min- 1 hr, then awakes with confusion. Last episode was twice yesterday, but pt cannot specify the frequency of these episodes. Also describes passing out occasionally - feels lightheaded, sometimes faints, no postictal symptoms. Unclear frequency. Records [place] [address] Rae show slowing, but no epileptiform discharges. Keep recording until Tuesday. Continue GBP 400 mg TID and hold Vimpat. Seizure types: Type A: full body spasm and unresponsiveness Type B: episodes of loss of consciousness up to an hour with no warning ? AEDs Home: Vimpat 100mg twice daily and Gabapentin 900mg three times daily (also for chronic pain); Klonopin 0.5mg three times daily prn for spasms Here: June 30, 2018: Hold Vimpat; continue Gabapentin 900mg three times daily (also for chronic pain); Klonopin 0.5mg three times daily prn for spasms July 02, 2018: Hold Vimpat and decrease gabapentin to 400mg three times daily Prior: Vimpat, Gabapentin, Klonopin, Keppra, Topamax, Depakote (allergy- GI upset), Dilantin (allergy- GI upset), Tegretol (allergy - GI upset) SIGNATURE: NURIS Gracia PATIENT NAME: Edgardo Denson DATE: July 03, 2018 TIME: 8:09 AM PAGER/CONTACT #: [phone] EPILEPSY CENTER ATTENDING NOTE [facility] Epilepsy Monitoring Unit Progress Note Subjective: No seizures/events over last 24 hours and no complaints. This is a 52 year old left handed female (no family members who are left handed) with events of unclear etiology. She has a history of depression, anxiety, possible schizophrenia, RSD, PE, strokes. Her episodes consist of grand mal that started in 1999 - unclear frequency - last one was over 6 months ago. These are described as full body spasm and unresponsiveness. She has other episodes of loss of consciousness up to an hour with no warning and wakes up with confusion. The last episode was two days ago. She can be amnestic for the events and unclear frequency. Objective: 07/03/18 0321 07/03/18 0348 07/03/18 0445 07/03/18 0731 BP: 90/52 95/54 Pulse: 68 62 Resp: 16 16 16 16 Temp: 36.7 ?C (98.1 ?F) 36.6 ?C (97.9 ?F) TempSrc: Oral Oral SpO2: 96% 97% Weight: Height: Exam: General: Awake, alert, interactive, no acute distress Ext: no pedal edema Neurological Examination MENTAL STATUS: oriented to person, place, time, attentive, cooperative LANGUAGE: fluent, no aphasia or dysarthria, comprehension intact CRANIAL NERVES: pupils equal and reactive to light, no visual field deficits to finger counting, EOM intact and conjugate, normal facial sensation to light touch, no facial asymmetry, normal hearing to speech, no deviation on tongue protrusion MOTOR: 5/5 throughout, no arm drift, intact fine motor movements, normal tone REFLEXES: deferred SENSORY: intact to light touch throughout COORDINATION: no ataxia, no tremor or abnormal movement noted GAIT: deferred as patient connected to EEG, previously normal DATA: Continuous video EEG recording was personally reviewed by myself and the results of the evaluation to date are summarized below. Interictal findings: ?None Ictal findings: Paroxysmal event (pressed button, slow to respond, holding head, not responsive) - no EEG change (total 2E) ?? IMPRESSION: Patient is a 52 year old left-handed female with history of events of unclear etiology admitted for diagnostic video EEG evaluation - suggestive for paroxysmal nonepileptic events. MRI in 2016 was read as normal. EEG no epileptiform discharges. Risk factors for epilepsy include head injuries, strokes and viral meningitis Primary epileptologist: Lilo Oritz MD Admit Date: June 29, 2018 ? Seizure types: Type A: full body spasm and unresponsiveness Type B: episodes of loss of consciousness up to an hour with no warning AEDs Home: Vimpat 100mg twice daily and Gabapentin 900mg three times daily (also for chronic pain); Klonopin 0.5mg three times daily prn for spasms Here: June 30, 2018: Hold Vimpat; continue Gabapentin 900mg three times daily (also for chronic pain); Klonopin 0.5mg three times daily prn for spasms July 01, 2018: Hold Vimpat and decrease gabapentin to 600mg three times daily July 02, 2018: Hold Vimpat and decrease gabapentin to 400mg three times daily Prior: Vimpat, Gabapentin, Klonopin, Keppra, Topamax, Depakote (allergy- GI upset), Dilantin (allergy- GI upset), Tegretol (allergy - GI upset) PLAN: ? Continuue video-EEG monitoring ? Restarted her home Gabapentin ? Discuss options for counseling ? Activation procedures: hyperventilation, photic stimulation, sleep deprivation ? Seizure precautions ? Rescue plan in place: 1-2mg of lorazepam (Ativan) IV as needed for prolonged motor epileptic seizure greater than 3 minutes and or 3rd motor epileptic seizure within 8 hours. ? Discharge planning pending capturing episodes of concern - today possibly ? Follow-up after discharge with Dr. Ortiz ? The treatment plan was discussed in detail with the patient. Time for questions was given and answers were discussed. The patient agreed with the treatment plan. ? Care Coordination: The majority of the visit was spent counseling and/or coordinating care for the patient. Gsen-ga-[id number] time was 35 minutes. An additional 10 mins spent in reviewing EMR, imaging, video EEG recording. Amari Castellanos MD Staff Physician [facility] Epilepsy Center Personal Pager: [phone] Cell Office: [phone] For urgent EEG review, call the Epilepsy Continuous Monitoring Unit (ECMU) at [facility] [phone]. For overnight issues, please page Epilepsy Steam Fitter Pager [phone]. Any questions regarding the EEG please page EEG fellow internal salesperson pager [phone]. However, please feel free to contact me personally at any time if there are questions regarding my patient. SIGNATURE: Amari Castellanos MD PATIENT NAME: Edgardo Denson DATE: July 03, 2018 TIME: 9:21 AM PAGER/CONTACT #: [phone] EPILEPSY CENTER STAFF NOTE [facility] STAFF PHYSICIAN NOTE OF PERSONAL INVOLVEMENT IN CARE I have reviewed the progress note obtained and documented by the nurse practitioner and I personally participated in the mejias components. I have discussed the case and management of the patient's care. The following comments revise or confirm relevant mejias components of the note. IMPRESSION: This is a 52 year old year old admitted with history of events of unclear etiology admitted for diagnostic video EEG evaluation - suggestive for paroxysmal nonepileptic events. MRI in 2016 was read as normal. EEG no epileptiform discharges. Risk factors for epilepsy include head injuries, strokes and viral meningitis The day's recording was personally reviewed and the results are summarized below. VIDEO-EEG MONITORING DAILY REPORT: Interictal findings: to be reviewed Ictal findings: pe recorded with no eeg changes PLAN: Discussed the need to re start AED Discussed the diagnosis of pnes she will be d/c tomorrow The treatment plan was discussed in detail with the patient/patient family members. Time for questions was given and answers were discussed. The patient/patient family members agree with [place] [id number] [facility]CO Observed: 07/03/2018 Status: COMPLETED Source: [place] 12:00 AM [facility] REPOSITORY Letter Text Edgardo Denson [facility] [place] [id number] [place] [address] Office: [phone] July 03, 2018 Dear Edgardo eDnson, We are very sorry for the inconvenience, but Dr. Castano will not be in the [place] office on September 01, 2018 . Please call the office at [phone] to re-schedule your appointment. Thank you for your understanding. Sincerely, [facility] NURSING PROG Observed: 07/02/2018 Status: COMPLETED Source: [place] 3:23 PM [facility] REPOSITORY HNO ID: [id number] Author: Greta OliverosRn) ABIODUN Muir Service: (none) Author Type: Registered Nurse Type: Nursing Progress Note Filed: 07/02/2018 3:28 PM Note Text: Seizure Note Patient Name: Edgardo Denson Patient Location: [id number]/M060-03 Time seizure started: 1148 (2E) Length of seizure: N/A If there was an aura then describe: N/A If motor activity was present then describe: N/A Did the seizure evolve to generalized tonic-conic: No If the patient bit their tongue indicate location: N/A If postictal behavior was present describe: Pt unable to recall event, opened eyes and was confused. Patient description of event: Pt unable to recall event. When this nurse attempted to wake patient, pt unresponsive and did not respond to sternal rub. Within a minute or so, patient woke up and was confused regarding event. Interventions taken: No further intervention at this time, will continue to observe and check with patient. This note was completed by: Greta Muir RN PROGRESS Observed: 07/02/2018 Status: COMPLETED Source: [place] 7:55 AM [facility] REPOSITORY HNO ID: [id number] Author: Amari Castellanos Service: Neurology General Author Type: Physician Type: Progress Notes Filed: 07/02/2018 7:56 AM Note Text: EPILEPSY CENTER ATTENDING NOTE [facility] Epilepsy Monitoring Unit Progress Note Subjective: No seizures/events over last 24 hours and no complaints. This is a 52 year old left handed female (no family members who are left handed) with events of unclear etiology. She has a history of depression, anxiety, possible schizophrenia, RSD, PE, strokes. Her episodes consist of grand mal that started in 1999 - unclear frequency - last one was over 6 months ago. These are described as full body spasm and unresponsiveness. She has other episodes of loss of consciousness up to an hour with no warning and wakes up with confusion. The last episode was two days ago. She can be amnestic for the events and unclear frequency. Objective: 07/01/18212407/01/18 2233 07/02/18 0013 07/02/18 0338 BP: 104/59 93/60 87/56 100/51 Pulse: 77 74 67 71 Resp: 16 16 Temp: 36.8 ?C (98.2 ?F) 36.8 ?C (98.2 ?F) TempSrc: Oral Oral SpO2: 96% 93% 93% Weight: Height: Exam: General: Awake, alert, interactive, no acute distress Ext: no pedal edema Neurological Examination MENTAL STATUS: oriented to person, place, time, attentive, cooperative LANGUAGE: fluent, no aphasia or dysarthria, comprehension intact CRANIAL NERVES: pupils equal and reactive to light, no visual field deficits to finger counting, EOM intact and conjugate, normal facial sensation to light touch, no facial asymmetry, normal hearing to speech, no deviation on tongue protrusion MOTOR: 5/5 throughout, no arm drift, intact fine motor movements, normal tone REFLEXES: deferred SENSORY: intact to light touch throughout COORDINATION: no ataxia, no tremor or abnormal movement noted GAIT: deferred as patient connected to EEG, previously normal DATA: Continuous video EEG recording was personally reviewed by myself and the results of the evaluation to date are summarized below. Interictal findings: ?None Ictal findings: Paroxysmal event (pressned button, slow to respond, holding head, not responsive) - no EEG change ?? IMPRESSION: Patient is a 52 year old left-handed female with history of events of unclear etiology admitted for diagnostic video EEG evaluation - suggestive for paroxysmal nonepileptic events. MRI in 2016 was read as normal. EEG no epileptiform discharges. Risk factors for epilepsy include head injuries, strokes and viral meningitis Primary epileptologist: Lilo Ortiz MD Admit Date: June 29, 2018 ? Seizure types: Type A: full body spasm and unresponsiveness Type B: episodes of loss of consciousness up to an hour with no warning AEDs Home: Vimpat 100mg twice daily and Gabapentin 900mg three times daily (also for chronic pain); Klonopin 0.5mg three times daily prn for spasms Here: June 30, 2018: Hold Vimpat; continue Gabapentin 900mg three times daily (also for chronic pain); Klonopin 0.5mg three times daily prn for spasms July 01, 2018: Hold Vimpat and decrease gabapentin to 600mg three times daily July 02, 2018: Hold Vimpat and decrease gabapentin to 400mg three times daily Prior: Vimpat, Gabapentin, Klonopin, Keppra, Topamax, Depakote (allergy- GI upset), Dilantin (allergy- GI upset), Tegretol (allergy - GI upset) PLAN: ? Continuue video-EEG monitoring ? Continue to hold some of her home anti-epileptic medications ? Activation procedures: hyperventilation, photic stimulation, sleep deprivation ? Seizure precautions ? Rescue plan in place: 1-2mg of lorazepam (Ativan) IV as needed for prolonged motor epileptic seizure greater than 3 minutes and or 3rd motor epileptic seizure within 8 hours. ? Discharge planning pending capturing episodes of concern ? Follow-up after discharge with Dr. Ortiz ? The treatment plan was discussed in detail with the patient. Time for questions was given and answers were discussed. The patient agreed with the treatment plan. ? Care Coordination: The majority of the visit was spent counseling and/or coordinating care for the patient. Hvjk-wg-rsha time was 35 minutes. An additional 10 mins spent in reviewing EMR, imaging, video EEG recording. Amari Castellanos MD Staff Physician [facility] Epilepsy Center Personal Pager: [phone] Cell Office: [phone] For urgent EEG review, call the Epilepsy Continuous Monitoring Unit (ECMU) at [facility] [phone]. For overnight issues, please page Epilepsy Steam Fitter Pager [phone]. Any questions regarding the EEG please page EEG fellow internal salesperson pager [phone]. However, please feel free to contact me personally at any time if there are questions regarding my patient. SIGNATURE: Amari Castellanos MD PATIENT NAME: Edgardo Denson DATE: July 02, 2018 TIME: 7:55 AM PAGER/CONTACT #: [phone] NURSING PROG Observed: 07/01/2018 Status: COMPLETED Source: [place] 2:40 PM [facility] REPOSITORY HNO ID: [id number] Author: Matthew (Abiodun) ABIODUN Montes Service: (none) Author Type: Registered Nurse Type: Nursing Progress Note Filed: 07/01/2018 2:43 PM Note Text: Nursing Progress Note Topic of Note: Daily Note Edgardo Denson [id number] Pt A O x 3 follows commands. See Epic for detailed neuro assessment. VS within parameters ordered. No s/s or co of cp orsob. Continue monitoring pt. 1200 No changes in neuro from the previous assessment. VS within parameters ordered. No s/s or co of cp or sob. Continue monitoring pt. This note was completed by: Matthew Montes RN PROGRESS Observed: 07/01/2018 Status: COMPLETED Source: [place] 8:35 AM [facility] REPOSITORY HNO ID: [id number] Author: Amari Castellanos Service: Neurology General Author Type: Physician Type: Progress Notes Filed: 07/01/2018 8:40 AM Note Text: EPILEPSY CENTER ATTENDING NOTE [facility] Epilepsy Monitoring Unit Progress Note Subjective: One event over last 24 hours and no complaints. This is a 52 year old left handed female (no family members who are left handed) with events of unclear etiology. She has a history of depression, anxiety, possible schizophrenia, RSD, PE, strokes. Her episodes consist of grand mal that started in 1999 - unclear frequency - last one was over 6 months ago. These are described as full body spasm and unresponsiveness. She has other episodes of loss of consciousness up to an hour with no warning and wakes up with confusion. The last episode was two days ago. She can be amnestic for the events and unclear frequency. Objective: 06/30/18 2332 07/01/18 0349 07/01/18 0350 07/01/18 0749 BP: 95/69 (!) 85/49 90/56 92/59 Pulse: 84 70 67 Resp: 18 18 18 Temp: 36.6 ?C (97.9 ?F) 36.8 ?C (98.2 ?F) 36.6 ?C (97.8 ?F) TempSrc: Oral Oral Oral SpO2: 95% 95% 95% Weight: Height: Exam: General: Awake, alert, interactive, no acute distress Ext: no pedal edema Neurological Examination MENTAL STATUS: oriented to person, place, time, attentive, cooperative LANGUAGE: fluent, no aphasia or dysarthria, comprehension intact CRANIAL NERVES: pupils equal and reactive to light, no visual field deficits to finger counting, EOM intact and conjugate, normal facial sensation to light touch, no facial asymmetry, normal hearing to speech, no deviation on tongue protrusion MOTOR: 5/5 throughout, no arm drift, intact fine motor movements, normal tone REFLEXES: deferred SENSORY: intact to light touch throughout COORDINATION: no ataxia, no tremor or abnormal movement noted GAIT: deferred as patient connected to EEG, previously normal DATA: Continuous video EEG recording was personally reviewed by myself and the results of the evaluation to date are summarized below. Interictal findings: ?None Ictal findings: Paroxysmal event (pressned button, slow to respond, holding head, not responsive) - no EEG change ?? IMPRESSION: Patient is a 52 year old left-handed female with history of events of unclear etiology admitted for diagnostic video EEG evaluation - suggestive for paroxysmal nonepileptic events. MRI in 2016 was read as normal. EEG no epileptiform discharges. Risk factors for epilepsy include head injuries, strokes and viral meningitis Primary epileptologist: Lilo Ortiz MD Admit Date: June 29, 2018 ? Seizure types: Type A: full body spasm and unresponsiveness Type B: episodes of loss of consciousness up to an hour with no warning AEDs Home: Vimpat 100mg twice daily and Gabapentin 900mg three times daily (also for chronic pain); Klonopin 0.5mg three times daily prn for spasms Here: June 30, 2018: Hold Vimpat; continue Gabapentin 900mg three times daily (also for chronic pain); Klonopin 0.5mg three times daily prn for spasms July 01, 2018: Hold Vimpat and decrease gabapentin to 600mg three times daily Prior: Vimpat, Gabapentin, Klonopin, Keppra, Topamax, Depakote (allergy- GI upset), Dilantin (allergy- GI upset), Tegretol (allergy - GI upset) PLAN: ? Continuue video-EEG monitoring ? Continue to hold some of her home anti-epileptic medications ? Activation procedures: hyperventilation, photic stimulation, sleep deprivation ? Seizure precautions ? Rescue plan in place: 1-2mg of lorazepam (Ativan) IV as needed for prolonged motor epileptic seizure greater than 3 minutes and or 3rd motor epileptic seizure within 8 hours. ? Discharge planning pending capturing episodes of concern ? Follow-up after discharge with Dr. Ortiz ? The treatment plan was discussed in detail with the patient. Time for questions was given and answers were discussed. The patient agreed with the treatment plan. ? Care Coordination: The majority of the visit was spent counseling and/or coordinating care for the patient. Khkg-uk-ezoh time was 35 minutes. An additional 10 mins spent in reviewing EMR, imaging, video EEG recording. Amari Castellanos MD Staff Physician [facility] Epilepsy Center Personal Pager: [phone] Cell Office: [phone] For urgent EEG review, call the Epilepsy Continuous Monitoring Unit (ECMU) at [facility] [phone]. For overnight issues, please page Epilepsy Steam Fitter Pager [phone]. Any questions regarding the EEG please page EEG fellow internal salesperson pager [phone]. However, please feel free to contact me personally at any time if there are questions regarding my patient. SIGNATURE: Amari Castellanos MD PATIENT NAME: Edgardo Denson DATE: July 01, 2018 TIME: 8:36 AM PAGER/CONTACT #: [phone] NURSING PROG Observed: 06/30/2018 Status: COMPLETED Source: [place] 5:34 PM [facility] REPOSITORY HNO ID: [id number] Author: Anika (Rn) ABIODUN Barriga Service: Nursing Author Type: Registered Nurse Type: Nursing Progress Note Filed: 06/30/2018 5:36 PM Note Text: Seizure Note Patient Name: Edgardo Denson Patient Location: M060 003/M060-03 Time seizure started: 1550 (1E) Length of seizure: N/A If there was an aura then describe: Patient states she felt disoriented and dizzy If motor activity was present then describe: N/A Did the seizure evolve to generalized tonic-conic: No If the patient bit their tongue indicate location: N/A If postictal behavior was present describe: N/A Patient description of event: Patient states she felt disoriented and dizzy; patient able to follow simple commands. Patient states this presents differently from her typical events Interventions taken: Safety maintained, no further interventions ordered at this time, will CTM. This note was completed by: Anika Barriga RN PROGRESS Observed: 06/30/2018 Status: COMPLETED Source: [place] 10:04 AM [facility] REPOSITORY HNO ID: [id number] Author: Amari Castellanos Service: Neurology Epilepsy Author Type: Physician Type: Progress Notes Filed: 06/30/2018 10:34 AM Note Text: NEUROLOGY EPILEPSY MONITORING UNIT (EMU) PROGRESS NOTE SERVICE DATE: 06/30/2018 SERVICE TIME: 09:15 Subjective No events overnight. No complaints. Home Anti Epileptic Drugs: LCM 100 mg BID - prescribed by Dr. Rae (started following abnormal EEG - not sure if helping seizures) GBP 900 mg TID - prescribed by PCP for postherpetic neuralgia and migraines and seizures CLN 0.5 mg TID (helps spasms in the GI tract, neck) - prescribed by PC Anti Epileptic Drugs here: Same as home Objective 06/29/18200606/29/18 2338 06/30/18 0343 06/30/18 0742 BP: 117/64 101/68 98/52 93/53 Pulse: 82 80 75 71 Resp: Temp: 36.4 ?C (97.5 ?F) 36.9 ?C (98.4 ?F) 37 ?C (98.6 ?F) 36.5 ?C (97.7 ?F) TempSrc: Oral Oral Oral Oral SpO2: 99% 96% 95% 95% Weight: Height: EKG, Telemetry, EEG, Monitors AND Alarms are on: Yes ? Written order: Remains standing. Seizure detection software on: Yes ? photovoltaic testing technician has been notified: Yes ? turn machine operator has been notified: Yes EXAM: Mental Status: Alert and oriented to person, place and time. Able to follow 1 and 2 step commands. radiator tester: Pupils equal and reactive to light, extraocular muscles intact. No nystagmus, face symmetric. Motor: Moves all extremities equally. Sens: Intact to light touch. Exam otherwise unchanged. DATA: Diagnostic tests reviewed for today's visit: Most recent labs and imaging results. Component Latest Ref Rng AND Units 06/29/2018 06/30/2018 WBC 3.70 - 11.00 k/uL 9.19 RBC 3.90 - 5.20 m/uL 4.01 Hemoglobin 11.5 - 15.5 g/dL 12.5 Hematocrit 36.0 - 46.0 % 36.9 MCV 80.0 - 100.0 fL 92.0 MCH 26.0 - 34.0 pG 31.2 MCHC 30.5 - 36.0 g/dL 33.9 RDW-CV 11.5 - 15.0 % 12.5 Platelet Count 150 - 400 k/uL 320 MPV 9.0 - 12.7 fL 9.6 Neut% % 60.6 Abs Neut (ANC) 1.45 - 7.50 k/uL 5.58 Lymph% % 29.2 Abs Lymph 1.00 - 4.00 k/uL 2.68 [place]% % 7.3 Abs [place] <0.87 k/uL 0.67 Eosin% % 2.2 Abs Eosin <0.46 k/uL 0.20 Baso% % 0.7 Abs Baso <0.11 k/uL 0.06 Nucleated Reds 0 /100 WBC 0.0 Absolute nRBC <0.01 k/uL <0.01 Diff Type Auto Diff Protein, Total 6.3 - 8.0 g/dL 7.6 Albumin 3.9 - 4.9 g/dL 4.2 Calcium 8.5 - 10.2 mg/dL 9.3 Bilirubin, Total 0.2 - 1.3 mg/dL 0.4 Alkaline Phosphatase 34 - 123 U/L 119 AST 13 - 35 U/L 21 Glucose 74 - 99 mg/dL 75 BUN 7 - 21 mg/dL 18 Creatinine 0.58 - 0.96 mg/dL 0.72 Sodium 136 - 144 mmol/L 139 Potassium 3.7 - 5.1 mmol/L 3.6 (L) Chloride 97 - 105 mmol/L 103 CO2 22 - 30 mmol/L 22 Anion Gap 9 - 18 mmol/L 14 ALT 7 - 38 U/L 12 eGFR- >60 eGFR-All Other Races . >60 Phencyclidine Negative Negative Benzodiazepines Urine Negative Preliminary positive. (A) Cocaine Urine Negative Negative Amphetamines Negative Negative Cannabinoids, Urine Negative Negative Opiates Negative Negative Barbiturates Negative Negative Ethanol, Urine <11 mg/dL <11 Oxycodone, Urine Negative Preliminary positive. 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 Past medical history includes migraines, remote history of PE in 2006 and 3 ischemic strokes, chronic pain in bones (PCP Dr. 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 She describes grand mal seizures that began in 1999 and have occurred with unclear frequency, last episode unknown. She also reports episodes of going out in which she loses awareness without warning, is unresponsive for 45 min- 1 hr, then awakes with postictal confusion. Last episode was twice on 06/28/2018, but pt cannot specify the frequency of these episodes.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 [id number] [place], [place] [address] #### AMALIA #### [address] [address] [phone] COMP METABOLIC PANEL Collected: 06/29/2018 Status: F Source: [place] 6:50 PM [facility] REPOSITORY TYPE CODE TESTS RESULT OUT OF REFERENCE UNITS RANGE LAB TP 6.3-8.0 g/dL Protein, Total 7.6 LAB ALB 3.9-4.9 g/dL Albumin 4.2 LAB CA 8.5-10.2 mg/dL Calcium, Total 9.3 LAB TBIL 0.2-1.3 mg/dL Bilirubin, Total 0.4 LAB ALKP 34-123 U/L Alkaline Phosphatase 119 LAB AST 13-35 U/L AST 21 LAB GLU 74-99 mg/dL Glucose 75 Result Comment: The [employer] (ADA) provides guidance for cutoff values for fasting glucose and random glucose. The ADA defines fasting as no caloric intake for at least 8 hours. Fas ting plasma glucose results between 100 to 125 mg/dL indicate increased risk for diabetes (prediabetes). Fasting plasma glucose results greater than or equal to 126 mg/dL meet the criteria for diagnosis of diabetes. In the absence of unequivocal hyperglycemia, results should be confirmed by repeat testing. In a patient with classic symptoms of hyperglycemia or hyperglycemic crisis, random plasma glucose results greater than or equal to 200 mg/dL meet the criteria for diagnosis of diabetes. Reference: Standards of Medical Care in Diabetes 2016, [employer]. Diabetes Care. 2016.39(Suppl 1). LAB BUN 7-21 mg/dL BUN 18 LAB CRET 0.58-0.96 mg/dL Creatinine 0.72 LAB NA 136-144 mmol/L Sodium 139 LAB K 3.7-5.1 mmol/L Potassium Low 3.6 LAB CL 97-105 mmol/L Chloride 103 LAB CO2 22-30 mmol/L CO2 22 LAB AGAP 9-18 mmol/L Anion Gap 14 LAB ALT 7-38 U/L ALT 12 LAB GFRAA eGFR- Amer. >60 LAB GFRNAA . eGFR-All Other Races >60 Result Comment: eGFR (Estimated GFR) Units of measure: mL/min/1.73 meters squared eGFR is derived from the reexpressed MDRD Study equation using the following parameters: serum creatinine, age, gender and race. The creatinine assay has been calibrated to be traceable to IDMS. An eGFR <60 mL/min/1.73m2 for >3 months is consistent with chronic kidney disease. Refer to KDOQI guidelines for clinical interpretation. In patients with unstable renal function, e.g. those with acute kidney injury, the eGFR may not accurately reflect actual GFR. Performed By: #### CBCDIF, PT, PTT, CMP, MG1, PHOS, TSH, LACOS #### [facility] [address] [place], [place] [address] #### AMALIA #### [facility] [address] [place] [address] [phone] MAGNESIUM Collected: 06/29/2018 Status: F Source: [place] 6:50 PM [facility] REPOSITORY TYPE CODE TESTS RESULT OUT OF REFERENCE UNITS RANGE LAB MG 1.7-2.3 mg/dL Magnesium 1.7 Performed By: #### CBCDIF, PT, PTT, CMP, MG1, PHOS, TSH, LACOS #### [place] [phone] #### AMALIA #### [address] [address] [phone] PHOSPHORUS Collected: 06/29/2018 Status: F Source: [place] 6:50 PM [facility] REPOSITORY TYPE CODE TESTS RESULT OUT OF REFERENCE UNITS RANGE LAB PHOS 2.7-4.8 mg/dL Phosphorus 4.0 Performed By: #### CBCDIF, PT, PTT, CMP, MG1, PHOS, TSH, LACOS #### [place] [address] #### AMALIA #### [place] [address] [phone] TSH Collected: 06/29/2018 Status: F Source: [place] 6:50 PM [facility] REPOSITORY TYPE CODE TESTS RESULT OUT OF RANGE REFERENCE UNITS LAB TSH 0.400-5.500 uU/mL TSH 2.690 Performed By: #### CBCDIF, PT, PTT, CMP, MG1, PHOS, TSH, LACOS #### [place] [phone] #### AMALIA #### [place] [address] [phone] LACOSAMIDE Collected: 06/29/2018 Status: F Source: [place] 6:50 PM [facility] REPOSITORY TYPE CODE TESTS RESULT OUT OF REFERENCE UNITS RANGE LAB LACOST 2.2-19.8 ug/mL Lacosamide Test 4.6 Result Comment: Expected concentration of patients receiving 200-400 mg/day is 2.2-19.8 ug/mL for Lacosamide. This test was developed and its performance characteristics determined by [facility] [facility]'s [facility] [place] ([facility]). It has not been cleared or approved by the FDA. -[facility] is regulated under CLIA as qualified to perform high-complexity testing. This test is used for clinical purposes. It should not be regarded as investigational or for research. LAB DESLAC <2.6 ug/mL Desmethyllacosamide 1.4 Result Comment: Expected concentration of patients receiving 200-400 mg/day is up to 2.5 ug/mL for Desmethyllacosamide. This test was developed and its performance characteristics determined by [facility] [place] [facility]'s [facility] Laboratory [facility] [place] ([facility]). It has not been cleared or approved by the FDA. [facility] is regulated under CLIA as qualified to perform high-complexity testing. This test is used for clinical purposes. It should not be regarded as investigational or for research. Performed By: #### CBCDIF, PT, PTT, CMP, MG1, PHOS, TSH, LACOS #### [facility] [address] [place] [address] #### AMALIA #### [address] [address] [phone] GABAPENTIN Collected: 06/29/2018 Status: F Source: [place] 6:50 PM [facility] REPOSITORY TYPE CODE TESTS RESULT OUT OF REFERENCE UNITS RANGE LAB AMALIA 2.0-20.0 ug/mL Gabapentin 2.0 Result Comment: (NOTE) INTERPRETIVE INFORMATION: Gabapentin Therapeutic Range: 2 - 20 ug/mL Toxic: Not well established Pharmacokinetics of gabapentin vary widely among patients, particularly those with compromised renal function. Adverse effects may include somnolence, dizziness, ataxia, and fatigue. Performed by [facility], [address] [place] [address] [phone] [email or web address], Wayne Wood MD, Lab. Director Performed By: #### CBCDIF, PT, PTT, CMP, MG1, PHOS, TSH, LACOS #### [facility] [address] [place], [place] [address] #### AMALIA #### [facility] [address] [address] [phone] NURSING PROG Observed: 06/29/2018 Status: COMPLETED Source: [place] 6:00 PM [facility] REPOSITORY HNO ID: [id number] Author: Shannon OliverosRn) ABIODUN Rodriges Service: Nursing Author Type: Registered Nurse Type: Nursing Progress Note Filed: 06/29/2018 6:52 PM Note Text: Nursing Progress Note Patient Name: Edgardo Denson Patient Location: M060 [id number]/[id number] Daily Note:Pt admitted to m60-3, oriented to room/unit. Safety plan and sz precautions initiated. Will continue to monitor and provide support. This note was completed by: Shannon Rodriges RN CNOV Observed: 06/29/2018 Status: COMPLETED Source: [place] 2:30 PM [facility] REPOSITORY Office Visit ([id number]) EDGARDO DENSON ([id number]) 1965 F Date Time Provider Department 06/29/18 2:30 PM THADDEUS PRUITT) [id number] During your visit today, we recorded the following information about you: Pulse Blood pressure Height 76/minute 117/81 1.626 m NURIS Gracia 06/29/2018 7:05 PM Signed [facility] CHIEF COMPLAINT: No chief complaint on file. ? 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 Past medical history includes migraines, remote history of PE in 2006 and 3 ischemic strokes, chronic pain in bones (PCP Dr. Rodriguez prescribes pain medications). 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 She describes grand mal seizures that began in 1999 and have occurred with unclear frequency, last episode unknown. She also reports episodes of going out in which she loses awareness without warning, is unresponsive for 45 min- 1 hr, then awakes with confusion. Last episode was twice yesterday, but pt cannot specify the frequency of these episodes. Also describes passing out occasionally - feels lightheaded, sometimes faints, no postictal symptoms. Unclear frequency. Complains of diplopia that comes and goes. Admits to not eating as much as she is recommended to. Current AEDs: LCM 100 mg BID - prescribed by Dr. Rae (started following abnormal EEG - not sure if helping seizures) GBP 900 mg TID - prescribed by PCP for postherpetic neuralgia and migraines and seizures CLN 0.5 mg TID (helps spasms in the GI tract, neck) - prescribed by PC ? Handedness: Left Occupation: Continues not to work. Driving: Not driving. Mood: History of depression ? CURRENT OUTPATIENT MEDICATIONS: No current facility-administered medications for this visit. No current outpatient prescriptions on file. Facility-Administered Medications Ordered in Other Visits: 0.9% NaCl 2-10 mL 2-10 mL INTRAVENOUS q 12 H LORazepam 2 mg injection (ATIVAN) 2 mg INTRAVENOUS q 5 MIN PRN diphenhydrAMINE 25 mg (BENADRYL) 25 mg ORAL q 8 H PRN dicyclomine 20 mg tab(s) (BENTYL) 20 mg ORAL QID PRN clonazePAM 0.5 mg tab(s) (KlonoPIN) 0.5 mg ORAL TID PRN gabapentin 300 mg cap(s) (NEURONTIN) 300 mg ORAL TID lacosamide 100 mg tab(s) (VIMPAT) 100 mg ORAL BID promethazine 25 mg tab(s) (PHENERGAN) 25 mg ORAL q 8 H PRN [START ON 06/30/2018] cetirizine 10 mg tab(s) (ZyrTEC) 10 mg ORAL DAILY fluticasone-vilanterol 200-25 mcg/dose 1 Inhalation (BREO ELLIPTA) 1 Inhalation INHALATION DAILY [START ON 06/30/2018] potassium chloride ER 20 mEq tab(s) (K-DUR, KLOR-CON) 20 mEq ORAL MO-WE- [START ON 06/30/2018] spironolactone 25 mg tab(s) (ALDACTONE) 25 mg ORAL DAILY [START ON 06/30/2018] pantoprazole DR 20 mg tab(s) (PROTONIX) 20 mg ORAL DAILY [START ON 06/30/2018] venlafaxine ER 300 mg cap(s) (EFFEXOR XR) 300 mg ORAL DAILY dabigatran etexilate 150 mg cap(s) (PRADAXA) 150 mg ORAL BID [START ON 06/30/2018] ergocalciferol (vitamin D2) 50,000 Units cap(s) (DRISDOL) 50,000 Units ORAL q FRI midazolam (PF) 5 mg injection (VERSED) 5 mg INTRAMUSCULAR q 24 H PRN acetaminophen 500-1,000 mg tab(s) (TYLENOL) 500-1,000 mg ORAL q 6 H PRN oxyCODONE-acetaminophen 5-325 mg 1 tablet (PERCOCET) 1 tablet ORAL q 6 H PRN loperamide 2 mg cap(s) (IMODIUM) 2 mg ORAL TID PRN NEUROLOGICAL EXAM: MENTAL STATUS The patient is oriented to person, place, and time. Speech is clear with normal language. Attention and concentration. Remote memory impairments. Reports trouble with word finding. Poor historian. CRANIAL NERVES Pupils equal, round, and reactive to light. Extraocular movements are full. There is no nystagmus. Facial strength/movement is symmetric. Hearing is intact. Palate elevates normally. Shoulder shrug is intact. Tongue protrudes midline. MOTOR EXAM Tone and bulk are normal. Strength is intact throughout. No tremor or other abnormal movements noted. No pronator drift. COORDINATION Rapid alternating movements are normal. Hdgcyc-umjt-rchgbe normal. GAIT Slightly unsteady gait. When walking from clinic to EMU, patient was pushing wheelchair full of her belongings and ran it into wall on right side several times. PREVIOUS EVALUATIONS: EEG Long ([facility], 05/24/18): normal ? Routine EEG ([facility], 03/22/16): Abnormal II (Awake, 10-20 Scalp Electrodes, Anterior temporal ? electrodes) ? 1 ? ?Background Slow ? 2 ? ?Continuous Slow, Generalized, Maximum left temporo-parietal Impression ? This EEG shows evidence of bilateral cotical dysfunction with maximum in ? the left temporo-parietal region. There is also evidence of a moderate ? diffuse encephalopathy. No epileptiform discharges or EEG seizures were ? seen. ? PSG/EEG (12/29/2009): IMPRESSION: 1. Normal overnight EEG. There were no epileptiform discharges or seizures recorded. 2. Severe sleep apnea syndrome. Respiratory events were central in nature and associated with oxygen desaturations (shauna of 78% on room air). This could possibly be due to pain medication effect (Oxycodone). Due to apnea severity, the scheduled MSLT was cancelled. 3. Abnormal sleep architecture likely due to respiratory events and first night effect. ? ? CT Brain wo ([facility], 03/24/18): Age-appropriate stable and unremarkable head CT. ? MRI/MRA Brain wo ([facility], 05/16/16): No acute intracranial findings. ?Normal morphology and signal intensity of the brain parenchyma. No large vessel occlusion, significant focal narrowing, or aneurysm on intracranial efyr-el-tguhou MRA. 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 ? MRI brain (02/25/2015, [facility]): NO ACUTE INFARCT. NORMAL BRAIN PARENCHYMA. RECENT CT FINDINGS RESULT OF ARTIFACT. PERSISTENT TRIGEMINAL ARTERY. ? MRI brain (09/06/2013, [facility]): No acute findings. ?Brain parenchyma shows normal signal and morphology for age. Incidental persistent trigeminal artery, connecting right ICA with basilar artery. ?This represents an arterial anatomic variant. 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 Past medical history includes migraines, remote history of PE in 2006 and 3 ischemic strokes, chronic pain in bones (PCP Dr. Rodriguez prescribes pain medications). 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 She describes grand mal seizures that began in 1999 and have occurred with unclear frequency, last episode unknown. She also reports episodes of going out in which she loses awareness without warning, is unresponsive for 45 min- 1 hr, then awakes with confusion. Last episode was twice yesterday, but pt cannot specify the frequency of these episodes. Also describes passing out occasionally - feels lightheaded, sometimes faints, no postictal symptoms. Unclear frequency. Current AEDs: LCM 100 mg BID - prescribed by Dr. Rae (started following abnormal EEG - not sure if helping seizures) GBP 900 mg TID - prescribed by PCP for postherpetic neuralgia and migraines and seizures CLN 0.5 mg TID (helps spasms in the GI tract, neck) - prescribed by PC Patient has continue episodes of going out and passing out despite taking [address] Ortiz, admit to EMU for diagnostic video-EEG. Diplopia - Patient admits to taking medications often without food. I discussed the risks, benefits and alternatives of the medical plan with the patient. Questions were answered. The patient agreed with the plan as discussed. ? PLAN: Per Dr. Ortiz, admit to EMU for diagnostic video-EEG. Recommend she take meds with food to decrease side effects. Will check levels in EMU. - LABS: none - Medical Therapy: continue current AEDs for now - Driving: Unable to drive at this time, last seizure 06/28/2018 - Follow up pending EMU evaluation. ? A total of 40 minutes was spent during the visit with greater than 50% of the time spent counseling and coordinating care of the above plan, discussing the following issues: Test results, Further testing required, Risks related to continued seizures and No bathing, no swimming unsupervised, no use of heavy machinery, no use of sharp moving objects, avoid heights, and risks related to continued seizures ,as well as answering the patient's numerous questions. ? NURIS Gracia June 29, 2018 Referring Provider: LILO ORTIZ [[id number]] Allergies As of Date: 06/29/2018 Noted Allergy Reaction CELLACEFATE 01/07/2006 7 - Swelling DEPAKOTE (DIVALPROEX SODIUM) 01/07/2006 8 - GI Upset DILANTIN (PHENYTOIN SODIUM EXTEND*06/03/2015 8 - GI Upset DIVALPROEX 14 - Other: See Comments Comments: Abdominal pain FISH CONTAINING PRODUCTS 05/13/2015 16 - Unknown PENICILLIN 7 - Swelling PENICILLIN G 01/07/2006 8 - GI Upset Comments: tolerates zosyn . sdm. 03/2007 TOLERATES KEFLEX 3-31-11 SHRIMP 05/13/2015 16 - Unknown SULFA (SULFONAMIDE ANTIBIOTICS) 05/17/2007 8 - GI Upset Comments: Gastritis SULFAMETHOXAZOLE-TRIMETHOPRIM 16 - Unknown TOPAMAX (TOPIRAMATE) 05/21/2009 1 - Mental Status Change HALDOL (HALOPERIDOL) 02/03/2008 1 - Mental Status Change 3 - Cough 8 - GI Upset 9 - Itching Date Reviewed: 06/29/2018 Reviewed by: Radha Cochran) Mukesh - Fully Assessed Primary Visit Diagnosis:Convulsions, unspecified convulsion type (HCC) [R56.9] Prescriptions as of 06/29/2018 Sig: VALACYCLOVIR 1 GRAM TABLET take 1 tablet by mouth three * VENLAFAXINE ER 150 MG CAPSULE* Take 2 capsules by mouth once* CLONAZEPAM 0.5 MG TABLET Take 1 tablet by mouth three * DABIGATRAN ETEXILATE 150 MG C* Take 1 capsule by mouth twice* OXYCODONE-ACETAMINOPHEN 5 MG-* 1 po q4h prn breakthrough anthony* PROMETHAZINE 25 MG TABLET Take 1 tablet by mouth every * FLUTICASONE 500 MCG-SALMETERO* Inhale 1 Puff as instructed t* LEVALBUTEROL HFA 45 MCG/ACTUA* Inhale 1-2 Puffs as instructe* GABAPENTIN 300 MG CAPSULE take 3 capsules by mouth thre* SPIRONOLACTONE 25 MG TABLET Take 1 tablet by mouth once d* POTASSIUM CHLORIDE ER 20 MEQ * Take 1 tablet by mouth every * COMPOUNDED PRESCRIPTION Low Dose Naltrexone 2 mg cap* LACOSAMIDE 100 MG TABLET Take 1 tablet by mouth twice * DICYCLOMINE 20 MG TABLET Take 1 tablet by mouth four t* OMEPRAZOLE 20 MG CAPSULE,VENESSA* Take 1 capsule by mouth once * LOPERAMIDE 2 MG CAPSULE Take 1 capsule by mouth as ne* CETIRIZINE 10 MG CAPSULE Take by mouth once daily. ERGOCALCIFEROL (VITAMIN D2) 5* Take 1 capsule by mouth every* Problem List As Of Date 06/29/2018 Noted Resolved Cellulitis and abscess of leg, except foot [L03*INVALID FOR*02/25/2017 Methicillin susceptible Staphylococcus aureus i*INVALID FOR*02/25/2017 Pseudomonas infection in conditions classified *INVALID FOR*02/25/2017 Edema [R60.9] INVALID FOR*08/31/2017 Reflex sympathetic dystrophy of lower limb [G90*INVALID FOR* Psoas muscle abscess (HCC) [K68.12] INVALID FOR*02/25/2017 More... Candidiasis of unspecified site [B37.9] INVALID FOR*08/31/2017 More... Other streptococcus infection in conditions cla*INVALID FOR*02/25/2017 More... Bacteremia [R78.81] INVALID FOR*02/25/2017 Other lymphedema [I89.0] INVALID FOR*02/25/2017 Chronic pain syndrome [G89.4] INVALID FOR* Opioid type dependence, continuous (HCC) [F11.2*INVALID FOR* TOBACCO USE DISORDER [F17.200] Other convulsions [R56.9] INVALID FOR*02/25/2017 Priority: Moderate Sleep Hypovent Oth Dis [G47.36] INVALID FOR* Priority: Mild HYPOPOTASSEMIA [E87.6] INVALID FOR*02/28/2009 Priority: Moderate VENA CAVA THROMBOSIS [I82.220] INVALID FOR* Anemia, unspecified [D64.9] INVALID FOR*10/31/2017 Embolism and thrombosis (HCC) [I74.9] INVALID FOR*02/25/2017 Priority: B More... Other Pulmonary Embolism and Infarction [I26.99]INVALID FOR* Encounter for Long-Term (Current) Use of Antico*INVALID FOR* More... Left leg pain [M79.605] INVALID FOR*02/25/2017 Muscle spasm [M62.838] INVALID FOR* Leg pain [M79.606] INVALID FOR*02/25/2017 Depression, reactive [F32.9] 02/25/2017 More... Iron defic anemia NEC INVALID FOR*10/31/2017 Agitation [R45.1] INVALID FOR*02/25/2017 Other chronic pain [G89.29] INVALID FOR*12/03/2017 Priority: F More... Altered mental status [R41.82] INVALID FOR*05/19/2016 Chemical dependency (HCC) [F19.20] INVALID FOR* SUMMARY INVALID FOR*02/25/2017 Priority: A More... Left arm weakness [R29.898] INVALID FOR* Priority: B More... Chest pain [R07.9] INVALID FOR*10/31/2017 Priority: A More... Cellulitis [L03.90] INVALID FOR*02/25/2017 Priority: D More... Depression [F32.9] INVALID FOR* Priority: D More... Lethargy [R53.83] INVALID FOR* More... Seizure disorder (HCC) [G40.909] INVALID FOR*11/12/2017 More... Low BP [I95.9] INVALID FOR*08/31/2017 More... DJD (degenerative joint disease), cervical [M47* Anxiety state, unspecified [F41.1] 04/22/2014 Pain [R52] INVALID FOR*08/31/2017 Priority: B More... Fever [R50.9] INVALID FOR*02/25/2017 Priority: C More... Delirium [R41.0] INVALID FOR*02/25/2017 Priority: A More... Hematemesis [K92.0] INVALID FOR*02/25/2017 Priority: C More... Emphysema of lung (HCC) [J43.9] INVALID FOR* Smoker [F17.200] INVALID FOR*02/25/2017 Chronic deep vein thrombosis of left femoral ve*INVALID FOR* Vitamin D deficiency [E55.9] INVALID FOR* Psychosis [F29] INVALID FOR* GERD (gastroesophageal reflux disease) [K21.9] INVALID FOR* Asthma [J45.909] INVALID FOR* Orthostatic hypotension [I95.1] INVALID FOR*08/31/2017 More... Psychiatric disorder [F99] INVALID FOR* More... 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 Syncope [R55] INVALID FOR*08/31/2017 Intentional fentanyl overdose (HCC) [T40.4X2A] INVALID FOR*08/31/2017 Nausea [R11.0] INVALID FOR* Delusional disorder (HCC) [F22] INVALID FOR* More... 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 Encounter Status:Closed by RADHA DAWN on 06/29/18 HISTORY PHYSICAL Observed: 06/29/2018 Status: COMPLETED Source: [facility] 2:25 PM [facility] REPOSITORY HNO ID: [id number] Author: Amari Edin Castellanos Service: Neurology General Author Type: Physician Type: HANDP Filed: 06/30/2018 10:34 AM Note Text: NEURO EPILEPSY ADMIT NOTE SERVICE DATE: 06/29/2018 SERVICE TIME: 15:50 ATTENDING PHYSICIAN: Amari Castellanos [facility] UNIT: M60 - Adult Epilepsy Monitoring Unit (EMU) SERVICE: Adult Epilepsy Subjective CHIEF COMPLAINT: possible seizures PRESENT ILLNESS: This is a 52 year old left handed 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 Past medical history includes migraines, remote history of PE in 2006 and 3 ischemic strokes, chronic pain in bones (PCP Dr. Rodriguez prescribes pain medications). 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 She describes grand mal seizures that began in 1999 and have occurred with unclear frequency, last episode unknown. She also reports episodes of going out in which she loses awareness without warning, is unresponsive for 45 min- 1 hr, then awakes with confusion. Last episode was twice yesterday, but pt cannot specify the frequency of these episodes. Also describes passing out occasionally - feels lightheaded, sometimes faints, no postictal symptoms. Unclear frequency. Patient states she had her first grand mal in the year 1999 (she thinks prior to her first arrest and first stroke) during a wedding. She wasn't feeling well, started driving home, then ended up somewhere in [place]. Was very scared afterward and didn't know how she had gotten there. She did not tell anyone about episodes like this until they became more frequent. She has an aura of just not feeling right, then loses awareness. Witnesses have told her that she goes into full body spasms, eyes rolled back, unresponsive. Duration and frequency unclear. Has postictal confusion. Last episode unclear, but thinks it was at least 6 months ago. Patient also describes episodes of going out, which started 2 years ago in 2016. She attributes these episodes to her ammonia level increasing. States, Police kicked in my door and found me lying in feces and urine naked. I don't remember any of it. I was not fully aware for 7 days. Ammonia levels kept climbing, but she ended up with no clear diagnosis. Was in physical/occupational therapy in a nursing facility for a few months. She had a few more episodes like this while in the nursing facility. Once fell out of wheelchair and broke a tooth. Soon after she left the nursing facility, her daughter found her in the bathroom unresponsive, and she was admitted to [facility]. Had trouble speaking and did not return to baseline for 3 days. Went to another nursing facility for 3-4 months after that, as well. She has no aura with these - just loses awareness without warning. Witnesses have told her she is unresponsive. Duration 45 min - 1 hr. Wakes up feeling confused. Unclear frequency. Last episode was twice yesterday. She also reports episodes of passing out, she describes as feeling lightheaded first, then leans on something until feeling passes or until she loses consciousness. No postictal period with these. Unclear frequency. Past evaluations revealed BP and vitals were normal. Pulse ox was reading 80s. Since 2016, she reports a constant sensation of drainage that's covering my head...Scalp felt sticky. Others could not see anything sticky. Started on R side of head and spread to whole scalp. It caused a systemic reaction of getting diaphoretic, sick to stomach. All where your H2 receptors are would get inflamed. States she can feel the hair coming down, it's real thin and fine. It hasn't seen air in 2 years. My skull shrunk over 3 cm in a month. Was admitted to psychiatric [facility]. No clear diagnosis. I was having neurological issues - would bounce around from wall to wall due to lightheadedness, dizziness. History of a PE in 2006. 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 three times a day lacosamide (VIMPAT) 100 mg tab Take 1 tablet by mouth twice daily for 30 days. dabigatran etexilate (PRADAXA) 150 mg cap Take 1 capsule by mouth twice daily. [START ON 06/20/2018] clonazePAM (KLONOPIN) 0.5 mg tablet Take 1 tablet by mouth three times daily as needed for up to 90 days. [START ON 08/04/2018] oxyCODONE-acetaminophen (PERCOCET) 5- 325 mg tablet 1 po q4h prn breakthrough pain (MAXIMUM 5 pills/day)Earliest Fill Date: 08/04/18 promethazine (PHENERGAN) 25 mg tablet Take 1 tablet by mouth every 8 hours as needed. fluticasone-salmeterol (ADVAIR DISKUS) 500-50 mcg/dose dsdv Inhale 1 Puff as instructed twice daily. RINSE AND GARGLE MOUTH WITH WATER AFTER EACH USE. levalbuterol tartrate HFA (XOPENEX HFA) 45 mcg/actuation inhaler Inhale 1-2 Puffs as instructed every 4 hours as needed for Wheezing/Shortness of Breath. spironolactone (ALDACTONE) 25 mg tablet Take 1 tablet by mouth once daily as needed. Takes as needed venlafaxine ER (EFFEXOR XR) 150 mg 24 hr capsule Take 2 capsules by mouth once daily. potassium chloride 20 mEq TbER Take 1 tablet by mouth every Tuesday,Tuesday,Tuesday. COMPOUNDED PRESCRIPTION Low Dose Naltrexone2 mg capsule (do not use calcium filler)Take one capsule by mouth at 9:00 PM every night dicyclomine (BENTYL) 20 mg tablet Take 1 tablet by mouth four times daily. omeprazole (PRILOSEC) 20 mg capsule Take 1 capsule by mouth once daily. loperamide (IMODIUM) 2 mg cap(s) Take 1 capsule by mouth as needed for Diarrhea. Cetirizine (ZYRTEC) 10 mg cap Take by mouth once daily. ergocalciferol, vitamin D2, (DRISDOL) 50,000 unit capsule Take 1 capsule by mouth every Tuesday. Indications: VITAMIN D DEFICIENCY No current facility-administered medications for this visit. Current AEDs: LCM 100 mg BID - prescribed by Dr. [place] GBP 900 mg TID - prescribed by PCP for postherpetic neuralgia and migraines CLN 0.5 mg TID (helps spasms in the GI tract, neck) - prescribed by PCP PAST MEDICAL HISTORY PAST MEDICAL HISTORY Diagnosis Date - Asthma - Cellulitis and abscess of leg, except foot 03/01/2007 Orig Leg issue 1996 - Chronic pain syndrome 05/27/2008 Post-herpetic Neuralgia - Depression, reactive - DJD (degenerative joint disease), cervical - Esophageal reflux Hemorrhagic gastritis / hx GI - Headache - Muscle spasm BZD - Other convulsions 02/25/2009 - PE (pulmonary embolism) 07/2006 - PMH - PAST MEDICAL HISTORY OF 07/19/2005 h/o right leg DVT, PE, s/p IVC filter - PM - PAST MEDICAL HISTORY OF 2005 h/o Osteomyelitis infection - Sleep disturbance, unspecified sleep study 12/21 didn't show sleep apnea but some central apneas - Syncope Dr. 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 Chronic pain - Fentanyl was stopped early 2017; now on Percocet [id number], prescribed by PCP Prior Pain Mgmt doctor - Dr. Madera (in [place]) Strokes x 3 - last was about 5 years ago ([facility] or ) PAST SURGICAL HISTORY PAST SURGICAL HISTORY Procedure Laterality Date - DELIVERY ONLY , low transverse - COLONOSCOP W/ OR W/O [facility] SPEC Colonoscopy - EGD W/O OR W/BRUSH/WASH EGD - LAPAROSCOPIC CHOLEYCYSTECTOMY Cholecystectomy, lap - PAST SURGICAL HISTORY OF 07/20 s/p IVC filter by Dr. Mcpherson - PAST SURGICAL HISTORY OF leg debridements for MRSA FAMILY HISTORY FAMILY HISTORY Problem Relation Age of Onset - Ischemic Heart Disease Mother - Stroke Mother - Diabetes Father - other (renal cell cancer) Father Testical cancer, primary renal cancer - other (testicular cancer) Father - Lipids Sister - Lipids Brother - Colon Cancer Paternal Grandmother - other (stomach cancer) Paternal Grandmother - Breast Cancer No Family History SOCIAL HISTORY Social History Marital status: Single Spouse name: Years of education: Number of children: 1 Occupational History Occupation Employer Comment [employer]* Social History Main Topics Smoking status: Current Every Day Smoker Packs/day: 0.50 Years: 12.00 Types: Cigarettes Smokeless tobacco: Never Used Comment: Currently smokes two cigarettes a day Alcohol use: No Drug use: No Sexual activity: Not Currently Social History Narrative Lives w/ dtr NEURO EXAM Alert, oriented. Normal speech, language. Visual moss full. EOMs intact. No nystagmus. Face symmetric. Hearing normal. Palate elevates normally. Mild essential tremor. No pronator drift. No dysmetria. Sensation grossly intact to touch, JPS. Reflexes decreased but symmetric. Toes downgoing. Gait steady, including tandem. No Romberg sign. DATA Prior EEG results were reviewed. -EEG (05/17/2016, [facility]): normal -EEG (03/22/2016, [facility]): BG, slow; CS, gen max left TP -EEG (02/27/2015, [facility]): normal -EEG (09/07/2013, [facility]): excessive beta -EEG (05/17/2012, [facility]): normal -EEG (10/24/2009, [facility]): normal -portable EEG (09/11/2009, [facility]): normal -portable EEG (04/04/2007, [facility]): normal PSG/EEG (12/29/2009): IMPRESSION: 1. Normal overnight EEG. There were no epileptiform discharges or seizures recorded. 2. Severe sleep apnea syndrome. Respiratory events were central in nature and associated with oxygen desaturations (shauna of 78% on room air). This could possibly be due to pain medication effect (Oxycodone). Due to apnea severity, the scheduled MSLT was cancelled. 3. Abnormal sleep architecture likely due to respiratory events and first night effect. Prior neuroimaging results were reviewed. -CT brain (03/24/2018, [facility]): Age-appropriate stable and unremarkable head CT. -MRI/MRA(05/16/2016, [facility]): No acute intracranial findings. ?Normal morphology and signal intensity of the brain parenchyma. No large vessel occlusion, significant focal narrowing, or aneurysm on intracranial [id number] MRA. 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 -MRI brain (02/25/2015, [facility]): NO ACUTE INFARCT. NORMAL BRAIN PARENCHYMA. RECENT CT FINDINGS RESULT OF ARTIFACT. PERSISTENT TRIGEMINAL ARTERY. -MRI brain (09/06/2013, [facility]): No acute findings. ?Brain parenchyma shows normal signal and morphology for age. Incidental persistent trigeminal artery, connecting right ICA with basilar artery. ?This represents an arterial anatomic variant. Prolonged EEG (05/24/2018, [facility]): normal IMPRESSION 52yo LH woman with complicated medical history including depression, anxiety, chronic pain, seizures since 1999, here with reports of new episodes of LOC since 10/2017, of unclear etiology. Upon review of her EMR, it is not clear to me that episodes of LOC are new. She has had multiple EEGs over the years including video-EEG at in 2013 which captured episodes of unresponsiveness without EEG change. She apparently was not accepting of PNES diagnosis at that time. She receives her medical care from multiple hospital systems, which complicates the situation. PLAN 1. Inpatient video-EEG for diagnosis for passing out episodes occurring about 1-2 times/week on LCM. 2. Continue LCM for now, prescribed by Dr. Rae. 3. Return to clinic after EMU, as needed. She should continue to refrain from driving. The patient agreed with the plan as outlined above. Lilo Ortiz MD cc: Dr. Carlos Rae CNOV Observed: 06/12/2018 Status: COMPLETED Source: [place] 1:20 PM [facility] REPOSITORY Office Visit ([id number]) EDGARDO DENSON ([id number]) 1965 F Date Time Provider Department 06/12/18 1:20 PM LILO ORTIZ [id number] During your visit today, we recorded the following information about you: Pulse Respiration Blood pressure Weight 94/minute 12/minute 131/68 60.1 kg Height 1.626 m Lilo Ortiz MD 06/12/2018 3:45 PM Signed [facility] EPILEPSY CLINIC NOTE - RETURN VISIT CHIEF COMPLAINT: seizures LAST SEEN: 04/28/2018 for initial visit, referred by Dr. Carlos aRe (per patient) INTERVAL HISTORY At 04/28/2018 visit we ordered a prolonged outpatient EEG to evaluate passing out episodes occurring 2-3 times/week. Long EEG 05/24/2018 was normal. She did not have any episodes during EEG. She reports 2-3 passing out episodes in last 2 weeks, approximately. Last was 06/08/2018 - she was sitting on couch at home; next thing she knew she was face first on the floor; she was alone. She does not remember ever having video-EEG before. Interim history: Was treated for shingles about 3 weeks ago Notes from 04/28/2018 visit: Pt presents with seizures, here for further evaluation and treatment. Per patient, Epilepsy Consult requested by Dr. Carlos Rae, her neurologist, but there is no mention of this in his last clinic note in [facility] (12/16/2017). She arrived 45 minutes late to her 60-minute appointment. She is here alone. SEIZURE HISTORY The history of seizures began in 1999, per patient, but new episodes of passing out started in October 2017. Episodes of passing out: Started October 2017, per patient. No aura. Often just found on the floor. No UI. No tongue biting. Last passing out episode was last night: pt does not remember; she was found on floor; she does not know how long she was out Frequency: 2-3/week Per patient: About 2 years ago (2015), episodes of LOC. She was unresponsive, naked, covered in urine, feces - police found her She was taken to [facility]; she does not remember how long she was hospitalized; she was discharged to [facility] for 2 months. She was found unresponsive again by daughter, late . Grand mal seizures -1996 MRSA; seizures started in 1999 -aura of she knew something was about to happen, then LOC; would convulse duration: unclear frequency: 1-2/week, started on GBP in 1999; LEV added and szs better controlled until 7 years ago, then LCM added. Last GTC was forever ago, more than 5 years ago, per patient. LEV and LCM were stopped 4 years ago but then LCM was restarted one year ago due to passing out episodes. 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 Per EMR (10/24/2009 Neurology Clinic note): One witnessed GTC (1997). Followed by Dr. Rae who performed a routine and 24 hours EEG which were unrevealing. She was treated presumptively for a seizure disorder with VPA, CPZ with adverse reactions (I had hemorrhagic gastritis); later tried Neurontin (up to 2700 mg/day) and Keppra (up to 1500 mg/day). She was seizure free until 2007; she had another generalized seizure and was switched from Keppra to TPM, but TPM caused a massive change in mental status, falling down drunk. Switched back to Keppra (1500 mg/day) and had been doing well until mid 2008. Per Dr. [facility] note 11/05/2009: She describes black out spells which began in June 2009. She has a warning sensation described as a heavy sensation in her eyes, she is still awake and alert, this progresses to a point when she becomes unable to walk and then she becomes unresponsive even to pain stimuli. Her arms shakes and she remembers that. There is no urine or stool incontinence. Nothing triggers this. Duration is 3-12 hours. When she wakes up she is fully alert and she does not know what happened. Daughter called 911 sever times because she can not wake her up. Apparently she can answer questions and follow commands during this period. Frequency: daily for the 3 weeks She did not try any medication for this. However she states that she is on Neurontin and Keppra She is allergic to VPA , stomach sickness, CBZ she developed hives. PSG/EEG 12/2009 showed severe central apnea which was likely related to narcotic use. Per Epilepsy Clinic note 04/23/2014, pt was admitted for video-EEG late March 2014. AEDs (LEV and LCM) were stopped. Episodes of unresponsiveness were recorded, with no EEG change. Pt was not accepting of the diagnosis of psychogenic nonepileptic seizures. Multiple ED visits for syncope/seizures in 2015. Seen at [facility] 11/12/2017 for syncopal episodes, left AMA. Seen in [facility] ED 11/23/[address] Rae 12/16/2017; no changes made. Seen at [facility] 03/24/2018 for slurred speech, weakness, lethargy; she was discharged. She was at PCP 03/27, when she was found on the floor after syncopal event. She was taken to [facility], discharged 03/28/18. Main doctors: -Dr. Castano (PCP) -Dr. Carlos Rae (neurologist: seizures, shingles, serotonin syndrome (confusion, disoriented, sick sleep) in 2002) -different psychiatrists/psychologists at [facility] - started Effexor but now PCP prescribes and early development: normal and early development RISK FACTORS FOR SEIZURES 1. Head Trauma (No); 2. 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 Family History of Seizures (No); 4. Developmental Delay (No); 5. Febrile Seizures (No); 6. SOCIAL MEDIA MARKETING MANAGER Tumors (No); 7. SOCIAL MEDIA MARKETING MANAGER Vascular Disease (Yes, per patient); 8. Significant Medical History (Yes, see below). CURRENT MEDICATION Current Outpatient Prescriptions: gabapentin (NEURONTIN) 300 mg capsule take 3 capsules by mouth three times a day lacosamide (VIMPAT) 100 mg tab Take 1 tablet by mouth twice daily for 30 days. dabigatran etexilate (PRADAXA) 150 mg cap Take 1 capsule by mouth twice daily. [START ON 06/20/2018] clonazePAM (KLONOPIN) 0.5 mg tablet Take 1 tablet by mouth three times daily as needed for up to 90 days. [START ON 08/04/2018] oxyCODONE-acetaminophen (PERCOCET) 5- 325 mg tablet 1 po q4h prn breakthrough pain (MAXIMUM 5 pills/day)Earliest Fill Date: 08/04/18 promethazine (PHENERGAN) 25 mg tablet Take 1 tablet by mouth every 8 hours as needed. fluticasone-salmeterol (ADVAIR DISKUS) 500-50 mcg/dose dsdv Inhale 1 Puff as instructed twice daily. RINSE AND GARGLE MOUTH WITH WATER AFTER EACH USE. levalbuterol tartrate HFA (XOPENEX HFA) 45 mcg/actuation inhaler Inhale 1-2 Puffs as instructed every 4 hours as needed for Wheezing/Shortness of Breath. spironolactone (ALDACTONE) 25 mg tablet Take 1 tablet by mouth once daily as needed. Takes as needed venlafaxine ER (EFFEXOR XR) 150 mg 24 hr capsule Take 2 capsules by mouth once daily. potassium chloride 20 mEq TbER Take 1 tablet by mouth every Tuesday,Tuesday,Tuesday. COMPOUNDED PRESCRIPTION Low Dose Naltrexone2 mg capsule (do not use calcium filler)Take one capsule by mouth at 9:00 PM every night dicyclomine (BENTYL) 20 mg tablet Take 1 tablet by mouth four times daily. omeprazole (PRILOSEC) 20 mg capsule Take 1 capsule by mouth once daily. loperamide (IMODIUM) 2 mg cap(s) Take 1 capsule by mouth as needed for Diarrhea. Cetirizine (ZYRTEC) 10 mg cap Take by mouth once daily. ergocalciferol, vitamin D2, (DRISDOL) 50,000 unit capsule Take 1 capsule by mouth every Tuesday. Indications: VITAMIN D DEFICIENCY No current facility-administered medications for this visit. Current AEDs: LCM 100 mg BID - prescribed by Dr. Rae GBP 900 mg TID - prescribed by PCP for postherpetic neuralgia and migraines CLN 0.5 mg TID (helps spasms in the GI tract, neck) - prescribed by PCP PAST MEDICAL HISTORY PAST MEDICAL HISTORY Diagnosis Date - Asthma - Cellulitis and abscess of leg, except foot 03/01/2007 Orig Leg issue 1996 - Chronic pain syndrome 05/27/2008 Post-herpetic Neuralgia - Depression, reactive - DJD (degenerative joint disease), cervical - Esophageal reflux Hemorrhagic gastritis / hx GI - Headache - Muscle spasm BZD - Other convulsions 02/25/2009 - PE (pulmonary embolism) 07/2006 - PMH - PAST MEDICAL HISTORY OF 07/19/2005 h/o right leg DVT, PE, s/p IVC filter - PMH - PAST MEDICAL HISTORY OF 2005 h/o Osteomyelitis infection - Sleep disturbance, unspecified sleep study 12/21 didn't show sleep apnea but some central apneas - Syncope Dr. 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 Chronic pain - Fentanyl was stopped early 2017; now on Percocet [id number], prescribed by PCP Prior Pain Mgmt doctor - Dr. Madera (in [place]) Strokes x 3 - last was about 5 years ago ([facility] or ) PAST SURGICAL HISTORY PAST SURGICAL HISTORY Procedure Laterality Date - DELIVERY ONLY , low transverse - COLONOSCOP W/ OR W/O [facility] SPEC Colonoscopy - EGD W/O OR W/BRUSH/WASH EGD - LAPAROSCOPIC CHOLEYCYSTECTOMY Cholecystectomy, lap - PAST SURGICAL HISTORY OF 07/20 s/p IVC filter by Dr. 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 Normal speech, language. Visual moss full. EOMs intact. No nystagmus. Face symmetric. Hearing normal. Palate elevates normally. Mild essential tremor. No pronator drift. No dysmetria. Sensation grossly intact to touch, JPS. Reflexes decreased but symmetric. Toes downgoing. Gait steady, including tandem. No Romberg sign. DATA Prior EEG results were reviewed. -EEG (05/17/2016, [facility]): normal -EEG (03/22/2016, [facility]): BG, slow; CS, gen max left TP -EEG (02/27/2015, [facility]): normal -EEG (09/07/2013, [facility]): excessive beta -EEG (05/17/2012, [facility]): normal -EEG (10/24/2009, [facility]): normal -portable EEG (09/11/2009, [facility]): normal -portable EEG (04/04/2007, [facility]): normal PSG/EEG (12/29/2009): IMPRESSION: 1. Normal overnight EEG. There were no epileptiform discharges or seizures recorded. 2. Severe sleep apnea syndrome. Respiratory events were central in nature and associated with oxygen desaturations (shauna of 78% on room air). This could possibly be due to pain medication effect (Oxycodone). Due to apnea severity, the scheduled MSLT was cancelled. 3. Abnormal sleep architecture likely due to respiratory events and first night effect. Prior neuroimaging results were reviewed. -CT brain (03/24/2018, [facility]): Age-appropriate stable and unremarkable head CT. -MRI/MRA(05/16/2016, [facility]): No acute intracranial findings. ?Normal morphology and signal intensity of the brain parenchyma. No large vessel occlusion, significant focal narrowing, or aneurysm on intracranial [id number] MRA. 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 -MRI brain (02/25/2015, [facility]): NO ACUTE INFARCT. NORMAL BRAIN PARENCHYMA. RECENT CT FINDINGS RESULT OF ARTIFACT. PERSISTENT TRIGEMINAL ARTERY. -MRI brain (09/06/2013, [facility]): No acute findings. ?Brain parenchyma shows normal signal and morphology for age. Incidental persistent trigeminal artery, connecting right ICA with basilar artery. ?This represents an arterial anatomic variant. Prolonged EEG (05/24/2018, [facility]): normal IMPRESSION 52yo LH woman with complicated medical history including depression, anxiety, chronic pain, seizures since 1999, here with reports of new episodes of LOC since 10/2017, of unclear etiology. Upon review of her EMR, it is not clear to me that episodes of LOC are new. She has had multiple EEGs over the years including video-EEG at in 2013 which captured episodes of unresponsiveness without EEG change. She apparently was not accepting of PNES diagnosis at that time. She receives her medical care from multiple hospital systems, which complicates the situation. PLAN 1. Inpatient video-EEG for diagnosis for passing out episodes occurring about 1-2 times/week on LCM. 2. Continue LCM for now, prescribed by Dr. Rae. 3. Return to clinic after EMU, as needed. She should continue to refrain from driving. The patient agreed with the plan as outlined above. Lilo Ortiz MD cc: Dr. Carlos Rae Referring Provider: RYAN CASTANO [[id number]] Allergies As of Date: 06/12/2018 Noted Allergy Reaction CELLACEFATE 01/07/2006 7 - Swelling DEPAKOTE (DIVALPROEX SODIUM) 01/07/2006 8 - GI Upset DILANTIN (PHENYTOIN SODIUM EXTEND*06/03/2015 8 - GI Upset DIVALPROEX 14 - Other: See Comments Comments: Abdominal pain FISH CONTAINING PRODUCTS 05/13/2015 16 - Unknown PENICILLIN 7 - Swelling PENICILLIN G 01/07/2006 8 - GI Upset Comments: tolerates zosyn . sdm. 03/2007 TOLERATES KEFLEX 3-31-11 SHRIMP 05/13/2015 16 - Unknown SULFA (SULFONAMIDE ANTIBIOTICS) 05/17/2007 8 - GI Upset Comments: Gastritis SULFAMETHOXAZOLE-TRIMETHOPRIM 16 - Unknown TOPAMAX (TOPIRAMATE) 05/21/2009 1 - Mental Status Change HALDOL (HALOPERIDOL) 02/03/2008 1 - Mental Status Change 3 - Cough 8 - GI Upset 9 - Itching Date Reviewed: 06/12/2018 Reviewed by: Eri Cisneros Ma - Fully Assessed Reason for Visit: Seizures [97] Reason For Visit History Recorded Primary Visit Diagnosis:Syncope and collapse [R55] Other Visit Diagnosis:Convulsions, unspecified convulsion type (HCC) [R56.9] Prescriptions as of 06/12/2018 Sig: GABAPENTIN 300 MG CAPSULE take 3 capsules by mouth thre* LACOSAMIDE 100 MG TABLET Take 1 tablet by mouth twice * DABIGATRAN ETEXILATE 150 MG C* Take 1 capsule by mouth twice* CLONAZEPAM 0.5 MG TABLET Take 1 tablet by mouth three * OXYCODONE-ACETAMINOPHEN 5 MG-* 1 po q4h prn breakthrough anthony* PROMETHAZINE 25 MG TABLET Take 1 tablet by mouth every * FLUTICASONE 500 MCG-SALMETERO* Inhale 1 Puff as instructed t* LEVALBUTEROL HFA 45 MCG/ACTUA* Inhale 1-2 Puffs as instructe* SPIRONOLACTONE 25 MG TABLET Take 1 tablet by mouth once d* VENLAFAXINE ER 150 MG CAPSULE* Take 2 capsules by mouth once* POTASSIUM CHLORIDE ER 20 MEQ * Take 1 tablet by mouth every * COMPOUNDED PRESCRIPTION Low Dose Naltrexone 2 mg cap* DICYCLOMINE 20 MG TABLET Take 1 tablet by mouth four t* OMEPRAZOLE 20 MG CAPSULE,VENESSA* Take 1 capsule by mouth once * LOPERAMIDE 2 MG CAPSULE Take 1 capsule by mouth as ne* CETIRIZINE 10 MG CAPSULE Take by mouth once daily. ERGOCALCIFEROL (VITAMIN D2) 5* Take 1 capsule by mouth every* Problem List As Of Date 06/12/2018 Noted Resolved Cellulitis and abscess of leg, except foot [L03*INVALID FOR*02/25/2017 Methicillin susceptible Staphylococcus aureus i*INVALID FOR*02/25/2017 Pseudomonas infection in conditions classified *INVALID FOR*02/25/2017 Edema [R60.9] INVALID FOR*08/31/2017 Reflex sympathetic dystrophy of lower limb [G90*INVALID FOR* Psoas muscle abscess (HCC) [K68.12] INVALID FOR*02/25/2017 More... Candidiasis of unspecified site [B37.9] INVALID FOR*08/31/2017 More... Other streptococcus infection in conditions cla*INVALID FOR*02/25/2017 More... Bacteremia [R78.81] INVALID FOR*02/25/2017 Other lymphedema [I89.0] INVALID FOR*02/25/2017 Chronic pain syndrome [G89.4] INVALID FOR* Opioid type dependence, continuous (HCC) [F11.2*INVALID FOR* TOBACCO USE DISORDER [F17.200] Other convulsions [R56.9] INVALID FOR*02/25/2017 Priority: Moderate Sleep Hypovent Oth Dis [G47.36] INVALID FOR* Priority: Mild HYPOPOTASSEMIA [E87.6] INVALID FOR*02/28/2009 Priority: Moderate VENA CAVA THROMBOSIS [I82.220] INVALID FOR* Anemia, unspecified [D64.9] INVALID FOR*10/31/2017 Embolism and thrombosis (HCC) [I74.9] INVALID FOR*02/25/2017 Priority: B More... Other Pulmonary Embolism and Infarction [I26.99]INVALID FOR* Encounter for Long-Term (Current) Use of Antico*INVALID FOR* More... Left leg pain [M79.605] INVALID FOR*02/25/2017 Muscle spasm [M62.838] INVALID FOR* Leg pain [M79.606] INVALID FOR*02/25/2017 Depression, reactive [F32.9] 02/25/2017 More... Iron defic anemia NEC INVALID FOR*10/31/2017 Agitation [R45.1] INVALID FOR*02/25/2017 Other chronic pain [G89.29] INVALID FOR*12/03/2017 Priority: F More... Altered mental status [R41.82] INVALID FOR*05/19/2016 Chemical dependency (HCC) [F19.20] INVALID FOR* SUMMARY INVALID FOR*02/25/2017 Priority: A More... Left arm weakness [R29.898] INVALID FOR* Priority: B More... Chest pain [R07.9] INVALID FOR*10/31/2017 Priority: A More... Cellulitis [L03.90] INVALID FOR*02/25/2017 Priority: D More... Depression [F32.9] INVALID FOR* Priority: D More... Lethargy [R53.83] INVALID FOR* More... Seizure disorder (HCC) [G40.909] INVALID FOR*11/12/2017 More... Low BP [I95.9] INVALID FOR*08/31/2017 More... DJD (degenerative joint disease), cervical [M47* Anxiety state, unspecified [F41.1] 04/22/2014 Pain [R52] INVALID FOR*08/31/2017 Priority: B More... Fever [R50.9] INVALID FOR*02/25/2017 Priority: C More... Delirium [R41.0] INVALID FOR*02/25/2017 Priority: A More... Hematemesis [K92.0] INVALID FOR*02/25/2017 Priority: C More... Emphysema of lung (HCC) [J43.9] INVALID FOR* Smoker [F17.200] INVALID FOR*02/25/2017 Chronic deep vein thrombosis of left femoral ve*INVALID FOR* Vitamin D deficiency [E55.9] INVALID FOR* Psychosis [F29] INVALID FOR* GERD (gastroesophageal reflux disease) [K21.9] INVALID FOR* Asthma [J45.909] INVALID FOR* Orthostatic hypotension [I95.1] INVALID FOR*08/31/2017 More... Psychiatric disorder [F99] INVALID FOR* More... 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 Syncope [R55] INVALID FOR*08/31/2017 Intentional fentanyl overdose (HCC) [T40.4X2A] INVALID FOR*08/31/2017 Nausea [R11.0] INVALID FOR* Delusional disorder (HCC) [F22] INVALID FOR* More... 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 Encounter Status:Closed by LILO ORTIZ MD on 06/12/18 PROGRESS Observed: 06/03/2018 Status: COMPLETED Source: [place] 9:16 AM [facility] HNO ID: [id number] Author: Ryan Castano Service: (none) Author Type: Physician Type: Progress Notes Filed: 06/03/2018 9:27 AM Note Text: Edgardo Denson is a 52 year old female who presents to followup on her rash, COPD exacerbation and for medication refills accompanied by her daughter. At the last visit with me on 05-25 the AANDP was as follows: 1. Herpes zoster without complications - ICD9: 053.9, ICD10: B02.9 (primary diagnosis) I think that this is likely factitious but its distribution suggests the possibility of shingles; will treat - VALACYCLOVIR 1 GRAM TABLET The rash was dressed with xeroform, gauze. ? 2. Prurigo - ICD9: 698.2, ICD10: L28.2 ? 3. Acute exacerbation of chronic obstructive pulmonary disease (COPD) (HCC) - ICD9: 491.21, ICD10: J44.1 Relationship of tobacco to her lung problems was again pointed out - METHYLPREDNISOLONE 4 MG TABLETS IN A DOSE PACK - PROMETHAZINE 25 MG TABLET ? 5. Need for vaccination - ICD9: V05.9, ICD10: Z23 - ADMIN OF INFLUENZA VACCINE - INFLUENZA VACCINE QUADRIVALENT AGE 3 YRS PLUS + IM ? 4. Nausea - ICD9: 787.02, ICD10: R11.0 She gets nauseated on oral steroids; I have restricted her access to this medication but will give her a small supply in this situation. - PROMETHAZINE 25 MG TABLET She believes that the rash is somewhat improved. She and her daughter are still concerned about the possibility of MRSA coming from within. It is itchy. She denies scratching it. She completed her valacyclovir and Medrol Dosepak. Her breathing is somewhat better. Her daughter reports that because of this illness she has used some extra oxycodone. She reports that the druggist said that she could order picker her next prescription a few days early. She continues to use oxycodone for generalized pain from fibromyalgia and complex regional pain disorder of all 4 extremities. She continues to use clonazepam for anxiety. She reports that the epilepsy neurologist believes that she has seizures and that it is not in her head. On May 24, she had prolonged EEG monitoring that was negative for epileptiform discharges. She is pending for follow-up with a neurologist later this month. 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 Other Pulmonary Embolism and Infarction Longterm (Current) Use of Anticoagulants Muscle Spasm Chemical dependency (HCC) Left Arm Weakness Depression Lethargy Djd (Degenerative Joint Disease), Cervical Emphysema of Lung (Hcc) Chronic Deep Vein Thrombosis of Left Femoral Vein (Hcc) Vitamin D Deficiency Psychosis (Hcc) Gerd (Gastroesophageal Reflux Disease) Asthma Psychiatric Disorder Tubulovillous Adenoma of Colon Nausea Delusional Disorder (Hcc) Orthostasis Psychogenic Nonepileptic Seizure Opacity of Lung On Imaging Study Current Outpatient Prescriptions on File Prior to Visit: promethazine (PHENERGAN) 25 mg tablet Take 1 tablet by mouth every 8 hours as needed. fluticasone-salmeterol (ADVAIR DISKUS) 500-50 mcg/dose dsdv Inhale 1 Puff as instructed twice daily. RINSE AND GARGLE MOUTH WITH WATER AFTER EACH USE. levalbuterol tartrate HFA (XOPENEX HFA) 45 mcg/actuation inhaler Inhale 1-2 Puffs as instructed every 4 hours as needed for Wheezing/Shortness of Breath. gabapentin (NEURONTIN) 300 mg capsule take 3 capsules by mouth three times a day dabigatran etexilate (PRADAXA) 150 mg cap Take 1 capsule by mouth twice daily. spironolactone (ALDACTONE) 25 mg tablet Take 1 tablet by mouth once daily as needed. Takes as needed venlafaxine ER (EFFEXOR XR) 150 mg 24 hr capsule Take 2 capsules by mouth once daily. potassium chloride 20 mEq TbER Take 1 tablet by mouth every Tuesday,Tuesday,Tuesday. COMPOUNDED PRESCRIPTION Low Dose Naltrexone2 mg capsule (do not use calcium filler)Take one capsule by mouth at 9:00 PM every night lacosamide (VIMPAT) 100 mg tab Take 1 tablet by mouth twice daily for 30 days. dicyclomine (BENTYL) 20 mg tablet Take 1 tablet by mouth four times daily. omeprazole (PRILOSEC) 20 mg capsule Take 1 capsule by mouth once daily. loperamide (IMODIUM) 2 mg cap(s) Take 1 capsule by mouth as needed for Diarrhea. Cetirizine (ZYRTEC) 10 mg cap Take by mouth once daily. ergocalciferol, vitamin D2, (DRISDOL) 50,000 unit capsule Take 1 capsule by mouth every Tuesday. Indications: VITAMIN D DEFICIENCY No current facility-administered medications on file prior to visit. Physical Examination: BP 112/77 Pulse 96 Temp 36.9 ?C (98.4 ?F) (Oral) Wt 59.9 kg (132 lb) BMI 22.66 kg/m? General appearance: Well appearing, alert, in no acute distress. Skin: The rash is substantially healed with no open or scabbed areas remaining. There is no suggestion of superinfection, no odor or discharge. Lung: Clear to percussion and auscultation Mental status: She is alert, calm and cooperative. ASSESSMENT/PLAN: 1. Other chronic pain - ICD9: 338.29, ICD10: G89.29 She is adhering to her significantly reduced dose of narcotics. I advised that I would not write the prescription to be filled early the pharmacy and that if she overused prescriptions she would run out prematurely. - OXYCODONE-ACETAMINOPHEN 5 MG-325 MG TABLET - OXYCODONE-ACETAMINOPHEN 5 MG-325 MG TABLET - OXYCODONE-ACETAMINOPHEN 5 MG-325 MG TABLET 2. Muscle spasm - ICD9: 728.85, ICD10: M62.838 See above, refill - CLONAZEPAM 0.5 MG TABLET Ryan Cadesky, MD CNOV Observed: 06/02/2018 Status: COMPLETED Source: [place] 1:20 PM [facility] REPOS[facility] Office Visit (FAMPBD) EDGARDO DENSON ([id number]) 1965 F Date Time Provider Department 06/02/18 1:20 PM RYAN CASTANO FAMPBD During your visit today, we recorded the following information about you: Temperature Pulse Blood pressure Weight 98.4 degrees 96/minute 112/77 59.9 kg Ryan Castano MD 06/03/2018 9:27 AM Signed Edgardo Denson is a 52 year old female who presents to followup on her rash, COPD exacerbation and for medication refills accompanied by her daughter. At the last visit with me on 05-25 the AANDP was as follows: 1. Herpes zoster without complications - ICD9: 053.9, ICD10: B02.9 (primary diagnosis) I think that this is likely factitious but its distribution suggests the possibility of shingles; will treat - VALACYCLOVIR 1 GRAM TABLET The rash was dressed with xeroform, gauze. ? 2. Prurigo - ICD9: 698.2, ICD10: L28.2 ? 3. Acute exacerbation of chronic obstructive pulmonary disease (COPD) ([facility]) - ICD9: 491.21, ICD10: J44.1 Relationship of tobacco to her lung problems was again pointed out - METHYLPREDNISOLONE 4 MG TABLETS IN A DOSE PACK - PROMETHAZINE 25 MG TABLET ? 5. Need for vaccination - ICD9: V05.9, ICD10: Z23 - ADMIN OF INFLUENZA VACCINE - INFLUENZA VACCINE QUADRIVALENT AGE 3 YRS PLUS + IM ? 4. Nausea - ICD9: 787.02, ICD10: R11.0 She gets nauseated on oral steroids; I have restricted her access to this medication but will give her a small supply in this situation. - PROMETHAZINE 25 MG TABLET She believes that the rash is somewhat improved. She and her daughter are still concerned about the possibility of MRSA coming from within. It is itchy. She denies scratching it. She completed her valacyclovir and Medrol Dosepak. Her breathing is somewhat better. Her daughter reports that because of this illness she has used some extra oxycodone. She reports that the druggist said that she could order picker her next prescription a few days early. She continues to use oxycodone for generalized pain from fibromyalgia and complex regional pain disorder of all 4 extremities. She continues to use clonazepam for anxiety. She reports that the epilepsy neurologist believes that she has seizures and that it is not in her head. On May 24, she had prolonged EEG monitoring that was negative for epileptiform discharges. She is pending for follow-up with a neurologist later this month. 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 Other Pulmonary Embolism and Infarction Longterm (Current) Use of Anticoagulants Muscle Spasm Chemical dependency (HCC) Left Arm Weakness Depression Lethargy Djd (Degenerative Joint Disease), Cervical Emphysema of Lung (Hcc) Chronic Deep Vein Thrombosis of Left Femoral Vein (Hcc) Vitamin D Deficiency Psychosis (Hcc) Gerd (Gastroesophageal Reflux Disease) Asthma Psychiatric Disorder Tubulovillous Adenoma of Colon Nausea Delusional Disorder (Hcc) Orthostasis Psychogenic Nonepileptic Seizure Opacity of Lung On Imaging Study Current Outpatient Prescriptions on File Prior to Visit: promethazine (PHENERGAN) 25 mg tablet Take 1 tablet by mouth every 8 hours as needed. fluticasone-salmeterol (ADVAIR DISKUS) 500-50 mcg/dose dsdv Inhale 1 Puff as instructed twice daily. RINSE AND GARGLE MOUTH WITH WATER AFTER EACH USE. levalbuterol tartrate HFA (XOPENEX HFA) 45 mcg/actuation inhaler Inhale 1-2 Puffs as instructed every 4 hours as needed for Wheezing/Shortness of Breath. gabapentin (NEURONTIN) 300 mg capsule take 3 capsules by mouth three times a day dabigatran etexilate (PRADAXA) 150 mg cap Take 1 capsule by mouth twice daily. spironolactone (ALDACTONE) 25 mg tablet Take 1 tablet by mouth once daily as needed. Takes as needed venlafaxine ER (EFFEXOR XR) 150 mg 24 hr capsule Take 2 capsules by mouth once daily. potassium chloride 20 mEq TbER Take 1 tablet by mouth every Tuesday,Tuesday,Tuesday. COMPOUNDED PRESCRIPTION Low Dose Naltrexone2 mg capsule (do not use calcium filler)Take one capsule by mouth at 9:00 PM every night lacosamide (VIMPAT) 100 mg tab Take 1 tablet by mouth twice daily for 30 days. dicyclomine (BENTYL) 20 mg tablet Take 1 tablet by mouth four times daily. omeprazole (PRILOSEC) 20 mg capsule Take 1 capsule by mouth once daily. loperamide (IMODIUM) 2 mg cap(s) Take 1 capsule by mouth as needed for Diarrhea. Cetirizine (ZYRTEC) 10 mg cap Take by mouth once daily. ergocalciferol, vitamin D2, (DRISDOL) 50,000 unit capsule Take 1 capsule by mouth every Tuesday. Indications: VITAMIN D DEFICIENCY No current facility-administered medications on file prior to visit. Physical Examination: BP 112/77 Pulse 96 Temp 36.9 ?C (98.4 ?F) (Oral) Wt 59.9 kg (132 lb) BMI 22.66 kg/m? General appearance: Well appearing, alert, in no acute distress. Skin: The rash is substantially healed with no open or scabbed areas remaining. There is no suggestion of superinfection, no odor or discharge. Lung: Clear to percussion and auscultation Mental status: She is alert, calm and cooperative. ASSESSMENT/PLAN: 1. Other chronic pain - ICD9: 338.29, ICD10: G89.29 She is adhering to her significantly reduced dose of narcotics. I advised that I would not write the prescription to be filled early the pharmacy and that if she overused prescriptions she would run out prematurely. - OXYCODONE-ACETAMINOPHEN 5 MG-325 MG TABLET - OXYCODONE-ACETAMINOPHEN 5 MG-325 MG TABLET - OXYCODONE-ACETAMINOPHEN 5 MG-325 MG TABLET 2. Muscle spasm - ICD9: 728.85, ICD10: M62.838 See above, refill - CLONAZEPAM 0.5 MG TABLET Ryan Castano MD Referring Provider: SELF [[id number]] Allergies As of Date: 06/02/2018 Noted Allergy Reaction CELLACEFATE 01/07/2006 7 - Swelling DEPAKOTE (DIVALPROEX SODIUM) 01/07/2006 8 - GI Upset DILANTIN (PHENYTOIN SODIUM EXTEND*06/03/2015 8 - GI Upset FISH CONTAINING PRODUCTS 05/13/2015 16 - Unknown PENICILLIN G 01/07/2006 8 - GI Upset Comments: tolerates zosyn . sdm. 03/2007 TOLERATES KEFLEX 3-31-11 SHRIMP 05/13/2015 16 - Unknown SULFA (SULFONAMIDE ANTIBIOTICS) 05/17/2007 8 - GI Upset Comments: Gastritis TOPAMAX (TOPIRAMATE) 05/21/2009 1 - Mental Status Change HALDOL (HALOPERIDOL) 02/03/2008 1 - Mental Status Change 3 - Cough 8 - GI Upset 9 - Itching Date Reviewed: 06/02/2018 Reviewed by: Dolores Rothman - Fully Assessed Reason for Visit: Recheck [92] Visit Diagnoses:Other chronic pain [G89.29] Muscle spasm [M62.838] Order(s):[START ON 06/20/2018] clonazePAM (KLONOPIN) 0.5 mg tabletTake 1 tablet by mouth three times daily as needed for up to 90 days.Disp: 90 tabletRfl: 2 [START ON 08/04/2018] oxyCODONE-acetaminophen (PERCOCET) 5-325 mg tablet1 po q4h prn breakthrough pain (MAXIMUM 5 pills/day) Earliest Fill Date: 08/04/18Disp: 150 tabletRfl: 0 Prescriptions as of 06/02/2018 Sig: CLONAZEPAM 0.5 MG TABLET Take 1 tablet by mouth three * OXYCODONE-ACETAMINOPHEN 5 MG-* 1 po q4h prn breakthrough anthony* PROMETHAZINE 25 MG TABLET Take 1 tablet by mouth every * FLUTICASONE 500 MCG-SALMETERO* Inhale 1 Puff as instructed t* LEVALBUTEROL HFA 45 MCG/ACTUA* Inhale 1-2 Puffs as instructe* GABAPENTIN 300 MG CAPSULE take 3 capsules by mouth thre* DABIGATRAN ETEXILATE 150 MG C* Take 1 capsule by mouth twice* SPIRONOLACTONE 25 MG TABLET Take 1 tablet by mouth once d* VENLAFAXINE ER 150 MG CAPSULE* Take 2 capsules by mouth once* POTASSIUM CHLORIDE ER 20 MEQ * Take 1 tablet by mouth every * COMPOUNDED PRESCRIPTION Low Dose Naltrexone 2 mg cap* LACOSAMIDE 100 MG TABLET Take 1 tablet by mouth twice * DICYCLOMINE 20 MG TABLET Take 1 tablet by mouth four t* OMEPRAZOLE 20 MG CAPSULE,VENESSA* Take 1 capsule by mouth once * LOPERAMIDE 2 MG CAPSULE Take 1 capsule by mouth as ne* CETIRIZINE 10 MG CAPSULE Take by mouth once daily. ERGOCALCIFEROL (VITAMIN D2) 5* Take 1 capsule by mouth every* Problem List As Of Date 06/02/2018 Noted Resolved Cellulitis and abscess of leg, except foot [L03*INVALID FOR*02/25/2017 Methicillin susceptible Staphylococcus aureus i*INVALID FOR*02/25/2017 Pseudomonas infection in conditions classified *INVALID FOR*02/25/2017 Edema [R60.9] INVALID FOR*08/31/2017 Reflex sympathetic dystrophy of lower limb [G90*INVALID FOR* Psoas muscle abscess (HCC) [K68.12] INVALID FOR*02/25/2017 More... Candidiasis of unspecified site [B37.9] INVALID FOR*08/31/2017 More... Other streptococcus infection in conditions cla*INVALID FOR*02/25/2017 More... Bacteremia [R78.81] INVALID FOR*02/25/2017 Other lymphedema [I89.0] INVALID FOR*02/25/2017 Chronic pain syndrome [G89.4] INVALID FOR* Opioid type dependence, continuous (HCC) [F11.2*INVALID FOR* TOBACCO USE DISORDER [F17.200] Other convulsions [R56.9] INVALID FOR*02/25/2017 Priority: Moderate Sleep Hypovent Oth Dis [G47.36] INVALID FOR* Priority: Mild HYPOPOTASSEMIA [E87.6] INVALID FOR*02/28/2009 Priority: Moderate VENA CAVA THROMBOSIS [I82.220] INVALID FOR* Anemia, unspecified [D64.9] INVALID FOR*10/31/2017 Embolism and thrombosis (HCC) [I74.9] INVALID FOR*02/25/2017 Priority: B More... Other Pulmonary Embolism and Infarction [I26.99]INVALID FOR* Encounter for Long-Term (Current) Use of Antico*INVALID FOR* More... Left leg pain [M79.605] INVALID FOR*02/25/2017 Muscle spasm [M62.838] INVALID FOR* Leg pain [M79.606] INVALID FOR*02/25/2017 Depression, reactive [F32.9] 02/25/2017 More... Iron defic anemia NEC INVALID FOR*10/31/2017 Agitation [R45.1] INVALID FOR*02/25/2017 Other chronic pain [G89.29] INVALID FOR*12/03/2017 Priority: F More... Altered mental status [R41.82] INVALID FOR*05/19/2016 Chemical dependency (HCC) [F19.20] INVALID FOR* SUMMARY INVALID FOR*02/25/2017 Priority: A More... Left arm weakness [R29.898] INVALID FOR* Priority: B More... Chest pain [R07.9] INVALID FOR*10/31/2017 Priority: A More... Cellulitis [L03.90] INVALID FOR*02/25/2017 Priority: D More... Depression [F32.9] INVALID FOR* Priority: D More... Lethargy [R53.83] INVALID FOR* More... Seizure disorder (HCC) [G40.909] INVALID FOR*11/12/2017 More... Low BP [I95.9] INVALID FOR*08/31/2017 More... DJD (degenerative joint disease), cervical [M47* Anxiety state, unspecified [F41.1] 04/22/2014 Pain [R52] INVALID FOR*08/31/2017 Priority: B More... Fever [R50.9] INVALID FOR*02/25/2017 Priority: C More... Delirium [R41.0] INVALID FOR*02/25/2017 Priority: A More... Hematemesis [K92.0] INVALID FOR*02/25/2017 Priority: C More... Emphysema of lung (HCC) [J43.9] INVALID FOR* Smoker [F17.200] INVALID FOR*02/25/2017 Chronic deep vein thrombosis of left femoral ve*INVALID FOR* Vitamin D deficiency [E55.9] INVALID FOR* Psychosis [F29] INVALID FOR* GERD (gastroesophageal reflux disease) [K21.9] INVALID FOR* Asthma [J45.909] INVALID FOR* Orthostatic hypotension [I95.1] INVALID FOR*08/31/2017 More... Psychiatric disorder [F99] INVALID FOR* More... DVT (deep venous thrombosis) ([facility]) [I82.409] INVALID FOR*02/25/2017 [facility] current use of anticoagulant [Z79.01] INVALID FOR*02/25/2017 More... 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 Syncope [R55] INVALID FOR*08/31/2017 Intentional fentanyl overdose ([facility]) [T40.4X2A] INVALID FOR*08/31/2017 Nausea [R11.0] INVALID FOR* Delusional disorder (HCC) [F22] INVALID FOR* More... 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 Prescriptions ordered this encounter Disp Refills Start End OXYCODONE-ACETAMINOPHEN 5 MG-325 MG * 150 * 0 06/05/2018 06/02/2018 Class: Print RX Si po q4h prn breakthrough pain (MAXIMUM 5 pills/day) Earliest Fill Date: 06/05/18 CLONAZEPAM 0.5 MG TABLET 90 t* 2 06/20/2018 09/18/2018 Class: Print RX Route: ORAL Sig: Take 1 tablet by mouth three times daily as needed for up to 90 days. OXYCODONE-ACETAMINOPHEN 5 MG-325 MG * 150 * 0 07/05/2018 06/02/2018 Class: Print RX Si po q4h prn breakthrough pain (MAXIMUM 5 pills/day) Earliest Fill Date: 07/05/18 OXYCODONE-ACETAMINOPHEN 5 MG-325 MG * 150 * 0 08/04/2018 09/02/2018 Class: Print RX Si po q4h prn breakthrough pain (MAXIMUM 5 pills/day) Earliest Fill Date: 08/04/18 Medications Discontinued During This Encounter oxyCODONE-acetaminophen (PERCOCET) 5* 150 * 0 05/06/2018 06/02/2018 Class: Print RX Si po q4h prn breakthrough pain (MAXIMUM 5 pills/day) Earliest Fill Date: 05/06/18 Disc: Reason for discontinue is not on file. clonazePAM (KLONOPIN) 0.5 mg tablet 90 t* 1 04/21/2018 06/02/2018 Class: Call Rx Route: ORAL Sig: Take 1 tablet by mouth three times daily as needed for up to 30 days. Disc: Reason for discontinue is not on file. oxyCODONE-acetaminophen (PERCOCET) 5* 150 * 0 06/05/2018 06/02/2018 Class: Print RX Si po q4h prn breakthrough pain (MAXIMUM 5 pills/day) Earliest Fill Date: 06/05/18 Disc: Reason for discontinue is not on file. oxyCODONE-acetaminophen (PERCOCET) 5* 150 * 0 07/05/2018 06/02/2018 Class: Print RX Si po q4h prn breakthrough pain (MAXIMUM 5 pills/day) Earliest Fill Date: 07/05/18 Disc: Reason for discontinue is not on file. methylPREDNISolone (MEDROL, JEREMY,) 4 * 1 Pa* 0 05/25/2018 06/03/2018 Sig: As Instructed per package Disc: Course of therapy completed azithromycin (ZITHROMAX Z-JEREMY) 250 m* 6 ta* 0 05/24/2018 06/03/2018 Sig: Two (2) tablets by mouth the first day and then one (1) tablet by mouth daily for 4 days. Disc: Course of therapy completed Disposition: Return in about 3 months (around 09/02/2018) for follow Christine Castano 39 PE. Follow-up and Disposition History Recorded Encounter Status:Closed by RYAN CASTANO MD on 06/03/18 PROGRESS Observed: 05/30/2018 Status: COMPLETED Source: [place] 9:37 AM [facility] [place] REPOSITORY O ID: [id number] Author: Ryan Castano Service: (none) Author Type: Physician Type: Progress Notes Filed: 05/30/2018 9:46 AM Note Text: Edgardo Denson is a 52 year old female who presents for an acute visit with a rash/chest infection. In February, she had an episode of sun poisoning and the rash has never healed. She believes that there an associated staph infection. The rash is weeping; she brought in a bag containing a week's worth of gauze with discharge. She believes she may have pneumonia. She has been coughing. She is being worked up for her seizures; she drove here today. ACTIVE PROBLEM LIST Reflex Sympathetic Dystrophy of Lower Limb Chronic Pain Syndrome Opioid Type Dependence, Continuous ([facility]) Tobacco Use Disorder Sleep Related Hypoventilation/Hypoxemia in Conditions Classifiable Elsewhere Other Venous Embolism and Thrombosis of Inferior Vena Cava Other Pulmonary Embolism and Infarction 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) Use of Anticoagulants Muscle Spasm Chemical dependency ([facility]) Left Arm Weakness Depression Lethargy Djd (Degenerative Joint Disease), Cervical Emphysema of Lung ([facility]) Chronic Deep Vein Thrombosis of Left Femoral Vein ([facility]) Vitamin D Deficiency Psychosis ([facility]) Gerd (Gastroesophageal Reflux Disease) Asthma Psychiatric Disorder Tubulovillous Adenoma of Colon Nausea Delusional Disorder ([facility]) Orthostasis Psychogenic Nonepileptic Seizure Opacity of Lung On Imaging Study Current Outpatient Prescriptions: valACYclovir (VALTREX) 1 gram tab Take 1 tablet by mouth three times daily for 7 days. methylPREDNISolone (MEDROL, JEREMY,) 4 mg Dose-Pack As Instructed per package promethazine (PHENERGAN) 25 mg tablet Take 1 tablet by mouth every 8 hours as needed. fluticasone-salmeterol (ADVAIR DISKUS) 500-50 mcg/dose dsdv Inhale 1 Puff as instructed twice daily. RINSE AND GARGLE MOUTH WITH WATER AFTER EACH USE. levalbuterol tartrate HFA (XOPENEX HFA) 45 mcg/actuation inhaler Inhale 1-2 Puffs as instructed every 4 hours as needed for Wheezing/Shortness of Breath. azithromycin (ZITHROMAX Z-JEREMY) 250 mg tablet Two (2) tablets by mouth the first day and then one (1) tablet by mouth daily for 4 days. oxyCODONE-acetaminophen (PERCOCET) 5-325 mg tablet 1 po q4h prn breakthrough pain (MAXIMUM 5 pills/day)Earliest Fill Date: 05/06/18 gabapentin (NEURONTIN) 300 mg capsule take 3 capsules by mouth three times a day clonazePAM (KLONOPIN) 0.5 mg tablet Take 1 tablet by mouth three times daily as needed for up to 30 days. dabigatran etexilate (PRADAXA) 150 mg cap Take 1 capsule by mouth twice daily. spironolactone (ALDACTONE) 25 mg tablet Take 1 tablet by mouth once daily as needed. Takes as needed venlafaxine ER (EFFEXOR XR) 150 mg 24 hr capsule Take 2 capsules by mouth once daily. potassium chloride 20 mEq TbER Take 1 tablet by mouth every Tuesday,Tuesday,Tuesday. COMPOUNDED PRESCRIPTION Low Dose Naltrexone2 mg capsule (do not use calcium filler)Take one capsule by mouth at 9:00 PM every night (Patient not taking: Reported on 05/24/2018 ) lacosamide (VIMPAT) 100 mg tab Take 1 tablet by mouth twice daily for 30 days. dicyclomine (BENTYL) 20 mg tablet Take 1 tablet by mouth four times daily. omeprazole (PRILOSEC) 20 mg capsule Take 1 capsule by mouth once daily. loperamide (IMODIUM) 2 mg cap(s) Take 1 capsule by mouth as needed for Diarrhea. Cetirizine (ZYRTEC) 10 mg cap Take by mouth once daily. ergocalciferol, vitamin D2, (DRISDOL) 50,000 unit capsule Take 1 capsule by mouth every Tuesday. Indications: VITAMIN D DEFICIENCY No current facility-administered medications for this visit. Physical Examination: BP 96/75 Pulse 88 Wt 60.8 kg (134 lb) BMI 23.00 kg/m? General appearance: Well appearing, alert, in no acute distress. Skin: clinical photos were taken; the shoulder and L upper back are involved by excoriated open lesions with serous discharge; there are no intact lesions, papules or vesicles. Lung: she is not distressed and speaking in full sentences but has diffuse wheezing ASSESSMENT/PLAN: 1. Herpes zoster without complications - ICD9: 053.9, ICD10: B02.9 (primary diagnosis) I think that this is likely factitious but its distribution suggests the possibility of shingles; will treat - VALACYCLOVIR 1 GRAM TABLET The rash was dressed with xeroform, gauze. 2. Prurigo - ICD9: 698.2, ICD10: L28.2 3. Acute exacerbation of chronic obstructive pulmonary disease (COPD) ([facility]) - ICD9: 491.21, ICD10: J44.1 Relationship of tobacco to her lung problems was again pointed out - METHYLPREDNISOLONE 4 MG TABLETS IN A DOSE PACK - PROMETHAZINE 25 MG TABLET 5. Need for vaccination - ICD9: V05.9, ICD10: Z23 - ADMIN OF INFLUENZA VACCINE - INFLUENZA VACCINE QUADRIVALENT AGE 3 YRS PLUS + IM 4. Nausea - ICD9: 787.02, ICD10: R11.0 She gets nauseated on oral steroids; I have restricted her access to this medication but will give her a small supply in this situation. - PROMETHAZINE 25 MG TABLET Ryan Castano MD CNOV Observed: 05/25/2018 Status: COMPLETED Source: [place] 3:00 PM [facility] REPOSITORY Office Visit (FAMPBD) JARETTEDGARDO SCHWARZ ([id number]) 1965 F Date Time Provider Department 05/25/18 3:00 PM RYAN CASTANO [facility] During your visit today, we recorded the following information about you: Pulse Blood pressure Weight 88/minute 96/75 60.8 kg Ryan Castano MD 05/30/2018 9:46 AM Signed Edgardo Denson is a 52 year old female who presents for an acute visit with a rash/chest infection. In February, she had an episode of sun poisoning and the rash has never healed. She believes that there an associated staph infection. The rash is weeping; she brought in a bag containing a week's worth of gauze with discharge. She believes she may have pneumonia. She has been coughing. She is being worked up for her seizures; she drove here today. 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 Other Pulmonary Embolism and Infarction Longterm (Current) Use of Anticoagulants Muscle Spasm Chemical dependency (HCC) Left Arm Weakness Depression Lethargy Djd (Degenerative Joint Disease), Cervical Emphysema of Lung ([facility]) Chronic Deep Vein Thrombosis of Left Femoral Vein (Hcc) Vitamin D Deficiency Psychosis (Hcc) Gerd (Gastroesophageal Reflux Disease) Asthma Psychiatric Disorder Tubulovillous Adenoma of Colon Nausea Delusional Disorder (Hcc) Orthostasis Psychogenic Nonepileptic Seizure Opacity of Lung On Imaging Study Current Outpatient Prescriptions: valACYclovir (VALTREX) 1 gram tab Take 1 tablet by mouth three times daily for 7 days. methylPREDNISolone (MEDROL, JEREMY,) 4 mg Dose-Pack As Instructed per package promethazine (PHENERGAN) 25 mg tablet Take 1 tablet by mouth every 8 hours as needed. fluticasone-salmeterol (ADVAIR DISKUS) 500-50 mcg/dose dsdv Inhale 1 Puff as instructed twice daily. RINSE AND GARGLE MOUTH WITH WATER AFTER EACH USE. levalbuterol tartrate HFA (XOPENEX HFA) 45 mcg/actuation inhaler Inhale 1-2 Puffs as instructed every 4 hours as needed for Wheezing/Shortness of Breath. azithromycin (ZITHROMAX Z-JEREMY) 250 mg tablet Two (2) tablets by mouth the first day and then one (1) tablet by mouth daily for 4 days. oxyCODONE-acetaminophen (PERCOCET) 5-325 mg tablet 1 po q4h prn breakthrough pain (MAXIMUM 5 pills/day)Earliest Fill Date: 05/06/18 gabapentin (NEURONTIN) 300 mg capsule take 3 capsules by mouth three times a day clonazePAM (KLONOPIN) 0.5 mg tablet Take 1 tablet by mouth three times daily as needed for up to 30 days. dabigatran etexilate (PRADAXA) 150 mg cap Take 1 capsule by mouth twice daily. spironolactone (ALDACTONE) 25 mg tablet Take 1 tablet by mouth once daily as needed. Takes as needed venlafaxine ER (EFFEXOR XR) 150 mg 24 hr capsule Take 2 capsules by mouth once daily. potassium chloride 20 mEq TbER Take 1 tablet by mouth every Tuesday,Tuesday,Tuesday. COMPOUNDED PRESCRIPTION Low Dose Naltrexone2 mg capsule (do not use calcium filler)Take one capsule by mouth at 9:00 PM every night (Patient not taking: Reported on 05/24/2018 ) lacosamide (VIMPAT) 100 mg tab Take 1 tablet by mouth twice daily for 30 days. dicyclomine (BENTYL) 20 mg tablet Take 1 tablet by mouth four times daily. omeprazole (PRILOSEC) 20 mg capsule Take 1 capsule by mouth once daily. loperamide (IMODIUM) 2 mg cap(s) Take 1 capsule by mouth as needed for Diarrhea. Cetirizine (ZYRTEC) 10 mg cap Take by mouth once daily. ergocalciferol, vitamin D2, (DRISDOL) 50,000 unit capsule Take 1 capsule by mouth every Tuesday. Indications: VITAMIN D DEFICIENCY No current facility-administered medications for this visit. Physical Examination: BP 96/75 Pulse 88 Wt 60.8 kg (134 lb) BMI 23.00 kg/m? General appearance: Well appearing, alert, in no acute distress. Skin: clinical photos were taken; the shoulder and L upper back are involved by excoriated open lesions with serous discharge; there are no intact lesions, papules or vesicles. Lung: she is not distressed and speaking in full sentences but has diffuse wheezing ASSESSMENT/PLAN: 1. Herpes zoster without complications - ICD9: 053.9, ICD10: B02.9 (primary diagnosis) I think that this is likely factitious but its distribution suggests the possibility of shingles; will treat - VALACYCLOVIR 1 GRAM TABLET The rash was dressed with xeroform, gauze. 2. Prurigo - ICD9: 698.2, ICD10: L28.2 3. Acute exacerbation of chronic obstructive pulmonary disease (COPD) ([facility]) - ICD9: 491.21, ICD10: J44.1 Relationship of tobacco to her lung problems was again pointed out - METHYLPREDNISOLONE 4 MG TABLETS IN A DOSE PACK - PROMETHAZINE 25 MG TABLET 5. Need for vaccination - ICD9: V05.9, ICD10: Z23 - ADMIN OF INFLUENZA VACCINE - INFLUENZA VACCINE QUADRIVALENT AGE 3 YRS PLUS + IM 4. Nausea - ICD9: 787.02, ICD10: R11.0 She gets nauseated on oral steroids; I have restricted her access to this medication but will give her a small supply in this situation. - PROMETHAZINE 25 MG TABLET Ryan Castano MD Referring Provider: SELF [[id number]] Allergies As of Date: 05/25/2018 Noted Allergy Reaction CELLACEFATE 01/07/2006 7 - Swelling DEPAKOTE (DIVALPROEX SODIUM) 01/07/2006 8 - GI Upset DILANTIN (PHENYTOIN SODIUM EXTEND*06/03/2015 8 - GI Upset FISH CONTAINING PRODUCTS 05/13/2015 16 - Unknown PENICILLIN G 01/07/2006 8 - GI Upset Comments: tolerates zosyn . sdm. 03/2007 TOLERATES KEFLEX 3-31-11 SHRIMP 05/13/2015 16 - Unknown SULFA (SULFONAMIDE ANTIBIOTICS) 05/17/2007 8 - GI Upset Comments: Gastritis TOPAMAX (TOPIRAMATE) 05/21/2009 1 - Mental Status Change HALDOL (HALOPERIDOL) 02/03/2008 1 - Mental Status Change 3 - Cough 8 - GI Upset 9 - Itching Date Reviewed: 05/24/2018 Reviewed by: Bianka Marinelli) ERIN Brush - Fully Assessed Reason for Visit: Follow Up [171] Primary Visit Diagnosis:Herpes zoster without complications [B02.9] Other Visit Diagnoses:Prurigo [L28.2] Acute exacerbation of chronic obstructive pulmonary disease (COPD) (HCC) [J44.1] Nausea [R11.0] Need for vaccination [Z23] Order(s):valACYclovir (VALTREX) 1 gram tabTake 1 tablet by mouth three times daily for 7 days.Disp: 21 tabletRfl: 0 methylPREDNISolone (MEDROL, JEREMY,) 4 mg Dose-PackAs Instructed per packageDisp: 1 PackageRfl: 0 ADMIN OF INFLUENZA VACCINE [[id number]] Order #: [id number]: 1 INFLUENZA VACCINE QUADRIVALENT AGE 3 YRS PLUS + IM [[id number]] Order #: [id number] promethazine (PHENERGAN) 25 mg tabletTake 1 tablet by mouth every 8 hours as needed.Disp: 20 tabletRfl: 0 Prescriptions as of 05/25/2018 Sig: VALACYCLOVIR 1 GRAM TABLET Take 1 tablet by mouth three * METHYLPREDNISOLONE 4 MG TABLE* As Instructed per package PROMETHAZINE 25 MG TABLET Take 1 tablet by mouth every * FLUTICASONE 500 MCG-SALMETERO* Inhale 1 Puff as instructed t* LEVALBUTEROL HFA 45 MCG/ACTUA* Inhale 1-2 Puffs as instructe* AZITHROMYCIN 250 MG TABLET Two (2) tablets by mouth the * OXYCODONE-ACETAMINOPHEN 5 MG-* 1 po q4h prn breakthrough anthony* GABAPENTIN 300 MG CAPSULE take 3 capsules by mouth thre* CLONAZEPAM 0.5 MG TABLET Take 1 tablet by mouth three * DABIGATRAN ETEXILATE 150 MG C* Take 1 capsule by mouth twice* SPIRONOLACTONE 25 MG TABLET Take 1 tablet by mouth once d* VENLAFAXINE ER 150 MG CAPSULE* Take 2 capsules by mouth once* POTASSIUM CHLORIDE ER 20 MEQ * Take 1 tablet by mouth every * COMPOUNDED PRESCRIPTION Low Dose Naltrexone 2 mg cap* Patient not taking: Reported on 05/24/2018 LACOSAMIDE 100 MG TABLET Take 1 tablet by mouth twice * DICYCLOMINE 20 MG TABLET Take 1 tablet by mouth four t* OMEPRAZOLE 20 MG CAPSULE,VENESSA* Take 1 capsule by mouth once * LOPERAMIDE 2 MG CAPSULE Take 1 capsule by mouth as ne* CETIRIZINE 10 MG CAPSULE Take by mouth once daily. ERGOCALCIFEROL (VITAMIN D2) 5* Take 1 capsule by mouth every* Problem List As Of Date 05/25/2018 Noted Resolved Cellulitis and abscess of leg, except foot [L03*INVALID FOR*02/25/2017 Methicillin susceptible Staphylococcus aureus i*INVALID FOR*02/25/2017 Pseudomonas infection in conditions classified *INVALID FOR*02/25/2017 Edema [R60.9] INVALID FOR*08/31/2017 Reflex sympathetic dystrophy of lower limb [G90*INVALID FOR* Psoas muscle abscess (HCC) [K68.12] INVALID FOR*02/25/2017 More... Candidiasis of unspecified site [B37.9] INVALID FOR*08/31/2017 More... Other streptococcus infection in conditions cla*INVALID FOR*02/25/2017 More... Bacteremia [R78.81] INVALID FOR*02/25/2017 Other lymphedema [I89.0] INVALID FOR*02/25/2017 Chronic pain syndrome [G89.4] INVALID FOR* Opioid type dependence, continuous (HCC) [F11.2*INVALID FOR* TOBACCO USE DISORDER [F17.200] Other convulsions [R56.9] INVALID FOR*02/25/2017 Priority: Moderate Sleep Hypovent Oth Dis [G47.36] INVALID FOR* Priority: Mild HYPOPOTASSEMIA [E87.6] INVALID FOR*02/28/2009 Priority: Moderate VENA CAVA THROMBOSIS [I82.220] INVALID FOR* Anemia, unspecified [D64.9] INVALID FOR*10/31/2017 Embolism and thrombosis (HCC) [I74.9] INVALID FOR*02/25/2017 Priority: B More... Other Pulmonary Embolism and Infarction [I26.99]INVALID FOR* Encounter for Long-Term (Current) Use of Antico*INVALID FOR* More... Left leg pain [M79.605] INVALID FOR*02/25/2017 Muscle spasm [M62.838] INVALID FOR* Leg pain [M79.606] INVALID FOR*02/25/2017 Depression, reactive [F32.9] 02/25/2017 More... Iron defic anemia NEC INVALID FOR*10/31/2017 Agitation [R45.1] INVALID FOR*02/25/2017 Other chronic pain [G89.29] INVALID FOR*12/03/2017 Priority: F More... Altered mental status [R41.82] INVALID FOR*05/19/2016 Chemical dependency (HCC) [F19.20] INVALID FOR* SUMMARY INVALID FOR*02/25/2017 Priority: A More... Left arm weakness [R29.898] INVALID FOR* Priority: B More... Chest pain [R07.9] INVALID FOR*10/31/2017 Priority: A More... Cellulitis [L03.90] INVALID FOR*02/25/2017 Priority: D More... Depression [F32.9] INVALID FOR* Priority: D More... Lethargy [R53.83] INVALID FOR* More... Seizure disorder (HCC) [G40.909] INVALID FOR*11/12/2017 More... Low BP [I95.9] INVALID FOR*08/31/2017 More... DJD (degenerative joint disease), cervical [M47* Anxiety state, unspecified [F41.1] 04/22/2014 Pain [R52] INVALID FOR*08/31/2017 Priority: B More... Fever [R50.9] INVALID FOR*02/25/2017 Priority: C More... Delirium [R41.0] INVALID FOR*02/25/2017 Priority: A More... Hematemesis [K92.0] INVALID FOR*02/25/2017 Priority: C More... Emphysema of lung (HCC) [J43.9] INVALID FOR* Smoker [F17.200] INVALID FOR*02/25/2017 Chronic deep vein thrombosis of left femoral ve*INVALID FOR* Vitamin D deficiency [E55.9] INVALID FOR* Psychosis [F29] INVALID FOR* GERD (gastroesophageal reflux disease) [K21.9] INVALID FOR* Asthma [J45.909] INVALID FOR* Orthostatic hypotension [I95.1] INVALID FOR*08/31/2017 More... Psychiatric disorder [F99] INVALID FOR* More... DVT (deep venous thrombosis) (HCC) [I82.409] INVALID FOR*02/25/2017 [facility] current use of anticoagulant [Z79.01] INVALID FOR*02/25/2017 More... 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 Syncope [R55] INVALID FOR*08/31/2017 Intentional fentanyl overdose (HCC) [T40.4X2A] INVALID FOR*08/31/2017 Nausea [R11.0] INVALID FOR* Delusional disorder (HCC) [F22] INVALID FOR* More... 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 Prescriptions ordered this encounter Disp Refills Start End VALACYCLOVIR 1 GRAM TABLET 21 t* 0 05/25/2018 06/01/2018 Route: ORAL Sig: Take 1 tablet by mouth three times daily for 7 days. METHYLPREDNISOLONE 4 MG TABLETS IN A* 1 Pa* 0 05/25/2018 Sig: As Instructed per package PROMETHAZINE 25 MG TABLET 20 t* 0 05/25/2018 Route: ORAL Sig: Take 1 tablet by mouth every 8 hours as needed. Encounter Status:Closed by RYAN CASTANO MD on 05/30/18 PROGRESS Observed: 05/24/2018 Status: COMPLETED Source: [place] 3:22 PM [facility] [place] REPOSITORY HNO ID: [id number] Author: Denae Saldivar Service: (none) Author Type: Nurse Practitioner Type: Progress Notes Filed: 05/24/2018 3:23 PM Note Text: ADDENDUM: Chest x-ray, 05/24/18 ?EXAMINATION: ?CHEST RADIOGRAPH (2 VIEW FRONTAL AND LATERAL) CLINICAL HISTORY: Abnormal lung sounds MQ: ?XC2_5 Comparison: 03/24/2018 RESULT: Lines, tubes, and devices: ?None Lungs and pleura: ?Emphysematous changes are seen in the lungs predominantly in the bilateral upper lobes. ?No focal lung consolidation is seen. ?There is no pleural effusion or pneumothorax. Cardiomediastinal silhouette: ?Heart size is normal. ?The aorta is mildly atherosclerotic. ?The mediastinal contours are otherwise unchanged. Other: ?Minimal degenerative changes are seen in the thoracic spine. IMPRESSION: Emphysema. No changes to POC outlined in office visit note. Consult placed to pulm should patient opt to establish care. Denae Saldivar APRN.HR BUSINESS PARTNER CONSULTANT XR CHEST 2V FRONTAL/LAT Observed: 05/24/2018 Status: F Source: [place] 12:39 PM [facility] REPOSITORY * * *Final Report* * * DATE OF EXAM: May 24 2018 12:39PM [facility] [id number] - XR CHEST 2V FRONTAL/LAT / PROCEDURE REASON: Abnormal lung sounds * * * * Physician Interpretation * * * * EXAMINATION: CHEST RADIOGRAPH (2 VIEW FRONTAL and LATERAL) CLINICAL HISTORY: Abnormal lung sounds MQ: XC2_5 Comparison: 03/24/2018 RESULT: Lines, tubes, and devices: None Lungs and pleura: Emphysematous changes are seen in the lungs predominantly in the bilateral upper lobes. No focal lung consolidation is seen. There is no pleural effusion or pneumothorax. Cardiomediastinal silhouette: Heart size is normal. The aorta is mildly atherosclerotic. The mediastinal contours are otherwise unchanged. Other: Minimal degenerative changes are seen in the thoracic spine. IMPRESSION: Emphysema. Furniture Mover: PSCB Transcribe Date/Time: May 24 2018 2:27P Dictated by : LEANDRO MULLEN MD This examination was interpreted and the report reviewed and electronically signed by: LEANDRO MULLEN MD on May 24 2018 2:29PM EST [id number] PROGRESS Observed: 05/24/2018 Status: COMPLETED Source: [place] 12:36 PM [facility] REPOSITORY HNO ID: [id number] Author: Ishmael Glover Rt Service: (none) Author Type: (none) Type: Progress Notes Filed: 05/24/2018 12:37 PM Note Text: Radiology Service Progress Note PATIENT NAME: Edgardo Denson DATE OF SERVICE: May 24, 2018 TIME: 12:36 PM PATIENT IDENTITY VERIFICATION COMPLETED USING TWO (2) METHODS: Patient confirmed name verbally and ID band matches.. PATIENT GENDER DATA: Female. status: : No status: N/A PATIENT RELEVANT IMPLANT DATA REVIEWED: Not Applicable RADIOLOGY DEPARTMENT: General X-ray: Exam(s) Completed: Chest X-Ray PERIPHERAL IV DATA: Not applicable SIGNED BY: Ishmael Glover Rt May 24, 2018 12:36 PM PROGRESS Observed: 05/24/2018 Status: COMPLETED Source: [place] 11:20 AM [facility] REPOSITORY O ID: [id number] Author: Denae Saldivar Service: (none) Author Type: Nurse Practitioner Type: Progress Notes Filed: 05/24/2018 3:23 PM Note Text: CC: Patient presents with: Cough: Hx of autoimmune, cough and concerns about pneumonia. MRSA: open sore on back concerns of MRSA has foul smell. x5days HPI: Edgardo Denson is a 52 year old female presenting to the [address] for evaluation of cough. She is also concerned about open sores on her upper back and shoulder, thought to be MRSA infection from prior tunneling skin condition requiring packing for a long time in early . Was advised that here in the walk-in clinic, one acute care issue is typically discussed. She is scheduled to see Dr. Castano tomorrow and other issues can be discussed at that time. The focus of today's visit was the cough, despite her tangential, fixating thoughts on other concerns (primarily pain management). Cough Since February, patient has had sinus problems, had a sinus infection, not treated. She states that untreated sinus infection has turned into pneumonia in the past. She reports having mycoplasma pneumonia 3x. Sinus symptoms are resolved by chest congestion has been an ongoing problem. She feels upper respiratory infection turned into lower respiratory infection 4-5 days ago. Unable to cough up secretions but cough is moist. Associated with lymph node enlargement; her neck gets very swollen. Throat raw from coughing. No fevers or chills but typically does not run fever, per pt. Has been diaphoretic and chilled. She has a pertinent PMH of emphysema. Patient adamant that this condition will go away with treatment. She was given advair in the past but only uses it as needed, stating the medication does not work her daily ? When trying to educate her on immediate-relief versus long-acting COPD medications, she was quick to respond that it does not work for her. States xopenex is the only immediate medication that helps. Says albuterol does not work and that nicotine actually opens up her bronchioles ? She is still a 0.5 ppd smoker. Reports some SOB and DUNHAM, that has recently gotten worse, with wheezing. She also alludes to inhaler and nebulizer machine being taken away from her in the hospital and does not have them. She also declines new nebulizer machine. Prednisone in the past caused her pyloric sphincter to close right up. States all of this would have been avoided if her sinus infection was treated in February. Her demeanor in the office today is mostly argumentative and seems uncooperative in regards to medical advice. She follows with Dr. Matthews for primary care and will see him tomorrow. She states being very unhappy with him since he took her off fentanyl patch. She takes 5 percocet tablets daily, 2700 mg of neurontin daily and klonopin daily as needed. Her pupils are quite large and she is slurring her speech somewhat. She denies recreational drug use and claims that prior positive testing for methamphetamine and PCP were false positives due to effexor and claritin use. All other ROS negative. PAST MEDICAL HISTORY Diagnosis Date - Asthma - Cellulitis and abscess of leg, except foot 03/01/2007 Orig Leg issue 1996 - Chronic pain syndrome 05/27/2008 Post-herpetic Neuralgia - Depression, reactive - DJD (degenerative joint disease), cervical - Esophageal reflux Hemorrhagic gastritis / hx GI - Headache - Muscle spasm BZD - Other convulsions 02/25/2009 - PE (pulmonary embolism) 07/2006 - PMH - PAST MEDICAL HISTORY OF 07/19/2005 h/o right leg DVT, PE, s/p IVC filter - PMH - PAST MEDICAL HISTORY OF 2005 h/o Osteomyelitis infection - Sleep disturbance, unspecified sleep study 12/21 didn't show sleep apnea but some central apneas - Syncope Dr. Rae / [place] - Tobacco use disorder - Tubulovillous adenoma of colon 2008 Sigmoid PAST SURGICAL HISTORY Procedure Laterality Date - DELIVERY ONLY , low transverse - COLONOSCOP W/ OR W/O [facility] SPEC Colonoscopy - EGD W/O OR W/BRUSH/WASH EGD - LAPAROSCOPIC CHOLEYCYSTECTOMY Cholecystectomy, lap - PAST SURGICAL HISTORY OF 07/20 s/p IVC filter by Dr. Mcpherson - PAST SURGICAL HISTORY OF leg debridements for MRSA ALLERGIES Cellacefate; Depakote [Divalproex Sodium]; Dilantin [Phenytoin Sodium Extended]; Fish Containing Products; Penicillin G; Shrimp; Sulfa (Sulfonamide Antibiotics); Topamax [Topiramate]; Haldol [Haloperidol] MEDICATIONS oxyCODONE-acetaminophen (PERCOCET) 5-325 mg tablet 1 po q4h prn breakthrough pain (MAXIMUM 5 pills/day)Earliest Fill Date: 05/06/18 gabapentin (NEURONTIN) 300 mg capsule take 3 capsules by mouth three times a day dabigatran etexilate (PRADAXA) 150 mg cap Take 1 capsule by mouth twice daily. spironolactone (ALDACTONE) 25 mg tablet Take 1 tablet by mouth once daily as needed. Takes as needed venlafaxine ER (EFFEXOR XR) 150 mg 24 hr capsule Take 2 capsules by mouth once daily. potassium chloride 20 mEq TbER Take 1 tablet by mouth every Tuesday,Tuesday,Tuesday. dicyclomine (BENTYL) 20 mg tablet Take 1 tablet by mouth four times daily. omeprazole (PRILOSEC) 20 mg capsule Take 1 capsule by mouth once daily. fluticasone-salmeterol (ADVAIR DISKUS) 500-50 mcg/dose dsdv Inhale 1 Puff as instructed twice daily. RINSE AND GARGLE MOUTH WITH WATER AFTER EACH USE. loperamide (IMODIUM) 2 mg cap(s) Take 1 capsule by mouth as needed for Diarrhea. Cetirizine (ZYRTEC) 10 mg cap Take by mouth once daily. ergocalciferol, vitamin D2, (DRISDOL) 50,000 unit capsule Take 1 capsule by mouth every Tuesday. Indications: VITAMIN D DEFICIENCY clonazePAM (KLONOPIN) 0.5 mg tablet Take 1 tablet by mouth three times daily as needed for up to 30 days. azithromycin (ZITHROMAX Z-JEREMY) 250 mg tablet Take 2 tablets first day then one tablet daily for next four days. COMPOUNDED PRESCRIPTION Low Dose Naltrexone2 mg capsule (do not use calcium filler)Take one capsule by mouth at 9:00 PM every night lacosamide (VIMPAT) 100 mg tab Take 1 tablet by mouth twice daily for 30 days. PHYSICAL EXAM: PHYSICAL EXAM: BP 106/75 (BP Site: Right Arm, BP Position: Sitting, BP Cuff Size: Regular Adult) Pulse 82 Temp 36.8 ?C (98.2 ?F) Wt 60.3 kg (132 lb 14.4 oz) SpO2 95% BMI 22.81 kg/m? BMI 22.81 kg/(m2) General appearance: Argumentative. Head: Normocephalic, atraumatic Eyes: Pupils dilated. Heart: regular rate and rhythm, without murmur Lungs: rhonchi throughout, diminished air flow. ASSESSMENT/PLAN: 1. Abnormal lung sounds - ICD9: 786.7, ICD10: R09.89 (primary diagnosis) 2. Chronic bronchitis, unspecified chronic bronchitis type (HCC) - ICD9: 491.9, ICD10: J42 3. Pulmonary emphysema, unspecified emphysema type (HCC) - ICD9: 492.8, ICD10: J43.9 Discussed her current symptoms and implications of emphysema. Education provided that emphysema is a chronic condition that is irreversible. Smoking cessation is essential to prevent worsening of condition. Discussed importance of using maintenance Advair twice daily as prescribed, for prevention, as well as nebulizer or other immediate relief medication during exacerbation. She continued to state (re: Advair) that some people don't respond the same way to medications, and I was told to take it as needed. Re-educated as best as possible. In terms of possible COPD exacerbation, steroid course may help, as well as z-pack for prevention. She is apparently unable to take steroids and is unwilling to obtain another nebulizer machine. She is willing, however, to use a xopenex inhaler, and that was prescribed. She is willing to take azithromycin as prescribed. If chest x-ray shows infiltrative process, will call and start levaquin for CAP treatment (unless she has an allergy). She interrupted discussion of cough several times, jumping to pain management frustration. Many attempts were made to keep her thought process on track. Told that chronic pain is something to discuss with PCP. She has been very resistant to most recommendations today. [facility], ER was advised, she refused to go. Today, she appears to be very non-adherent to medications (except pain medications). At one point, provider asked her why she was in the office if she did not want to follow recommendations, or adhere to medications. She apologized a couple of times for her demeanor. She will follow above plan as outlined and will see Dr. Castano tomorrow. Denae Saldivar APRN.JOSSELINE FERREIRA Observed: 05/24/2018 Status: COMPLETED Source: [place] 10:50 AM [facility] REPOSITORY Office Visit (INTMMN) EDGARDO DENSON ([id number]) 1965 F Date Time Provider Department 05/24/18 10:50 AM DENAE SALDIVAR (JOSSELINE) INTMMN During your visit today, we recorded the following information about you: Temperature Pulse Blood pressure Weight 98.2 degrees 82/minute 106/75 60.3 kg Bianka Brush MA, MA 05/24/2018 11:12 AM Signed Edgardo Denson is a 52 year old female here today for visit in the [facility]. Pt has been identified by name and date of for verification. Allergies have been reviewed/verified and include the following: Cellacefate; Depakote [Divalproex Sodium]; Dilantin [Phenytoin Sodium Extended]; Fish Containing Products; Penicillin G; Shrimp; Sulfa (Sulfonamide Antibiotics); Topamax [Topiramate]; Haldol [Haloperidol]. Medication reviewed/updated by provider. Pharmacy verified Yes Has the patient had any recent labs: No Is the patient active on MyChart No: patient declines What is the patients preferred method of communication: Letter AMB ROOMING INTAKE FLOWSHEET DATA Risk Screening Do you have concerns about personal safety or safety in the home?: (pt declined to answer) ERIN Keller APRN.HR BUSINESS PARTNER CONSULTANT 05/24/2018 3:23 PM Signed CC: Patient presents with: Cough: Hx of autoimmune, cough and concerns about pneumonia. MRSA: open sore on back concerns of MRSA has foul smell. x5days HPI: Edgardo Denson is a 52 year old female presenting to the [address] for evaluation of cough. She is also concerned about open sores on her upper back and shoulder, thought to be MRSA infection from prior tunneling skin condition requiring packing for a long time in early . Was advised that here in the walk-in clinic, one acute care issue is typically discussed. She is scheduled to see Dr. Castano tomorrow and other issues can be discussed at that time. The focus of today's visit was the cough, despite her tangential, fixating thoughts on other concerns (primarily pain management). Cough Since February, patient has had sinus problems, had a sinus infection, not treated. She states that untreated sinus infection has turned into pneumonia in the past. She reports having mycoplasma pneumonia 3x. Sinus symptoms are resolved by chest congestion has been an ongoing problem. She feels upper respiratory infection turned into lower respiratory infection 4-5 days ago. Unable to cough up secretions but cough is moist. Associated with lymph node enlargement; her neck gets very swollen. Throat raw from coughing. No fevers or chills but typically does not run fever, per pt. Has been diaphoretic and chilled. She has a pertinent PMH of emphysema. Patient adamant that this condition will go away with treatment. She was given advair in the past but only uses it as needed, stating the medication does not work her daily ? When trying to educate her on immediate-relief versus long-acting COPD medications, she was quick to respond that it does not work for her. States xopenex is the only immediate medication that helps. Says albuterol does not work and that nicotine actually opens up her bronchioles ? She is still a 0.5 ppd smoker. Reports some SOB and DUNHAM, that has recently gotten worse, with wheezing. She also alludes to inhaler and nebulizer machine being taken away from her in the hospital and does not have them. She also declines new nebulizer machine. Prednisone in the past caused her pyloric sphincter to close right up. States all of this would have been avoided if her sinus infection was treated in February. Her demeanor in the office today is mostly argumentative and seems uncooperative in regards to medical advice. She follows with Dr. Matthews for primary care and will see him tomorrow. She states being very unhappy with him since he took her off fentanyl patch. She takes 5 percocet tablets daily, 2700 mg of neurontin daily and klonopin daily as needed. Her pupils are quite large and she is slurring her speech somewhat. She denies recreational drug use and claims that prior positive testing for methamphetamine and PCP were false positives due to effexor and claritin use. All other ROS negative. PAST MEDICAL HISTORY Diagnosis Date - Asthma - Cellulitis and abscess of leg, except foot 03/01/2007 Orig Leg issue 1996 - Chronic pain syndrome 05/27/2008 Post-herpetic Neuralgia - Depression, reactive - DJD (degenerative joint disease), cervical - Esophageal reflux Hemorrhagic gastritis / hx GI - Headache - Muscle spasm BZD - Other convulsions 02/25/2009 - PE (pulmonary embolism) 07/2006 - PMH - PAST MEDICAL HISTORY OF 07/19/2005 h/o right leg DVT, PE, s/p IVC filter - PMH - PAST MEDICAL HISTORY OF 2005 h/o Osteomyelitis infection - Sleep disturbance, unspecified sleep study 12/21 didn't show sleep apnea but some central apneas - Syncope Dr. 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 PAST SURGICAL HISTORY Procedure Laterality Date - DELIVERY ONLY , low transverse - COLONOSCOP W/ OR W/O [facility] SPEC Colonoscopy - EGD W/O OR W/BRUSH/WASH EGD - LAPAROSCOPIC CHOLEYCYSTECTOMY Cholecystectomy, lap - PAST SURGICAL HISTORY OF 07/20 s/p IVC filter by Dr. Mcpherson - PAST SURGICAL HISTORY OF leg debridements for MRSA ALLERGIES Cellacefate; Depakote [Divalproex Sodium]; Dilantin [Phenytoin Sodium Extended]; Fish Containing Products; Penicillin G; Shrimp; Sulfa (Sulfonamide Antibiotics); Topamax [Topiramate]; Haldol [Haloperidol] MEDICATIONS oxyCODONE-acetaminophen (PERCOCET) 5-325 mg tablet 1 po q4h prn breakthrough pain (MAXIMUM 5 pills/day)Earliest Fill Date: 05/06/18 gabapentin (NEURONTIN) 300 mg capsule take 3 capsules by mouth three times a day dabigatran etexilate (PRADAXA) 150 mg cap Take 1 capsule by mouth twice daily. spironolactone (ALDACTONE) 25 mg tablet Take 1 tablet by mouth once daily as needed. Takes as needed venlafaxine ER (EFFEXOR XR) 150 mg 24 hr capsule Take 2 capsules by mouth once daily. potassium chloride 20 mEq TbER Take 1 tablet by mouth every Tuesday,Tuesday,Tuesday. dicyclomine (BENTYL) 20 mg tablet Take 1 tablet by mouth four times daily. omeprazole (PRILOSEC) 20 mg capsule Take 1 capsule by mouth once daily. fluticasone-salmeterol (ADVAIR DISKUS) 500-50 mcg/dose dsdv Inhale 1 Puff as instructed twice daily. RINSE AND GARGLE MOUTH WITH WATER AFTER EACH USE. loperamide (IMODIUM) 2 mg cap(s) Take 1 capsule by mouth as needed for Diarrhea. Cetirizine (ZYRTEC) 10 mg cap Take by mouth once daily. ergocalciferol, vitamin D2, (DRISDOL) 50,000 unit capsule Take 1 capsule by mouth every Tuesday. Indications: VITAMIN D DEFICIENCY clonazePAM (KLONOPIN) 0.5 mg tablet Take 1 tablet by mouth three times daily as needed for up to 30 days. azithromycin (ZITHROMAX Z-JEREMY) 250 mg tablet Take 2 tablets first day then one tablet daily for next four days. COMPOUNDED PRESCRIPTION Low Dose Naltrexone2 mg capsule (do not use calcium filler)Take one capsule by mouth at 9:00 PM every night lacosamide (VIMPAT) 100 mg tab Take 1 tablet by mouth twice daily for 30 days. PHYSICAL EXAM: PHYSICAL EXAM: BP 106/75 (BP Site: Right Arm, BP Position: Sitting, BP Cuff Size: Regular Adult) Pulse 82 Temp 36.8 ?C (98.2 ?F) Wt 60.3 kg (132 lb 14.4 oz) SpO2 95% BMI 22.81 kg/m? BMI 22.81 kg/(m2) General appearance: Argumentative. Head: Normocephalic, atraumatic Eyes: Pupils dilated. Heart: regular rate and rhythm, without murmur Lungs: rhonchi throughout, diminished air flow. ASSESSMENT/PLAN: 1. Abnormal lung sounds - ICD9: 786.7, ICD10: R09.89 (primary diagnosis) 2. Chronic bronchitis, unspecified chronic bronchitis type (HCC) - ICD9: 491.9, ICD10: J42 3. Pulmonary emphysema, unspecified emphysema type (HCC) - ICD9: 492.8, ICD10: J43.9 Discussed her current symptoms and implications of emphysema. Education provided that emphysema is a chronic condition that is irreversible. Smoking cessation is essential to prevent worsening of condition. Discussed importance of using maintenance Advair twice daily as prescribed, for prevention, as well as nebulizer or other immediate relief medication during exacerbation. She continued to state (re: Advair) that some people don't respond the same way to medications, and I was told to take it as needed. Re-educated as best as possible. In terms of possible COPD exacerbation, steroid course may help, as well as z-pack for prevention. She is apparently unable to take steroids and is unwilling to obtain another nebulizer machine. She is willing, however, to use a xopenex inhaler, and that was prescribed. She is willing to take azithromycin as prescribed. If chest x-ray shows infiltrative process, will call and start levaquin for CAP treatment (unless she has an allergy). She interrupted discussion of cough several times, jumping to pain management frustration. Many attempts were made to keep her thought process on track. Told that chronic pain is something to discuss with PCP. She has been very resistant to most recommendations today. At [facility] ago, ER was advised, she refused to go. Today, she appears to be very non-adherent to medications (except pain medications). At one point, provider asked her why she was in the office if she did not want to follow recommendations, or adhere to medications. She apologized a couple of times for her demeanor. She will follow above plan as outlined and will see Dr. Castano tomorrow. Denae Saldivar APRN.JOSSELINE Saldivar APRN.JOSSELINE 05/24/2018 12:14 PM Addendum Please go to the [facility] basement level for chest x-ray, then you may go home. START z-pack as instructed today. TWO pills today, then ONE pill daily until completed. If the chest x-ray shows more concerning pneumonia, I will call and switch your antibiotic. START using xopenex inhaler every 4 hours as needed for wheezing and shortness of breath. START using your Advair inhaler TWICE DAILY every single day no matter what for maintenance and prevention of COPD exacerbation. Please see the radiology technician to follow-up. A consult was placed. You may call [phone] Castano tomorrow to address your skin concern and other healthcare needs. Take care, KAITLYN Rajan APRN.CNP 05/24/2018 3:23 PM Signed ADDENDUM: Chest x-ray, 05/24/18 ?EXAMINATION: ?CHEST RADIOGRAPH (2 VIEW FRONTAL AND LATERAL) CLINICAL HISTORY: Abnormal lung sounds MQ: ?XC2_5 Comparison: 03/24/2018 RESULT: Lines, tubes, and devices: ?None Lungs and pleura: ?Emphysematous changes are seen in the lungs predominantly in the bilateral upper lobes. ?No focal lung consolidation is seen. ?There is no pleural effusion or pneumothorax. Cardiomediastinal silhouette: ?Heart size is normal. ?The aorta is mildly atherosclerotic. ?The mediastinal contours are otherwise unchanged. Other: ?Minimal degenerative changes are seen in the thoracic spine. IMPRESSION: Emphysema. No changes to POC outlined in office visit note. Consult placed to pulm should patient opt to establish care. Denae Saldivar APRN.JOSSELINE Referring Provider: SELF [[id number]] Allergies As of Date: 05/24/2018 Noted Allergy Reaction CELLACEFATE 01/07/2006 7 - Swelling DEPAKOTE (DIVALPROEX SODIUM) 01/07/2006 8 - GI Upset DILANTIN (PHENYTOIN SODIUM EXTEND*06/03/2015 8 - GI Upset FISH CONTAINING PRODUCTS 05/13/2015 16 - Unknown PENICILLIN G 01/07/2006 8 - GI Upset Comments: tolerates zosyn . sdm. 03/2007 TOLERATES KEFLEX 3-31-11 SHRIMP 05/13/2015 16 - Unknown SULFA (SULFONAMIDE ANTIBIOTICS) 05/17/2007 8 - GI Upset Comments: Gastritis TOPAMAX (TOPIRAMATE) 05/21/2009 1 - Mental Status Change HALDOL (HALOPERIDOL) 02/03/2008 1 - Mental Status Change 3 - Cough 8 - GI Upset 9 - Itching Date Reviewed: 05/24/2018 Reviewed by: Bianka Marinelli) ERIN Brush - Fully Assessed Reason for Visit: Cough [28] Cmt: Hx of autoimmune, cough and concerns about pneumonia. MRSA [Other] Cmt: open sore on back concerns of MRSA has foul smell. x5days Primary Visit Diagnosis:Abnormal lung sounds [R09.89] Other Visit Diagnoses:Chronic bronchitis, unspecified chronic bronchitis type (HCC) [J42] Pulmonary emphysema, unspecified emphysema type (HCC) [J43.9] Order(s):XR CHEST 2V FRONTAL/LAT [[id number]] Order #: [id number] FUTURE fluticasone-salmeterol (ADVAIR DISKUS) 500-50 mcg/dose dsdvInhale 1 Puff as instructed twice daily. RINSE AND GARGLE MOUTH WITH WATER AFTER EACH USE.Disp: 1 EachRfl: 5 levalbuterol tartrate HFA (XOPENEX HFA) 45 mcg/actuation inhalerInhale 1-2 Puffs as instructed every 4 hours as needed for Wheezing/Shortness of Breath.Disp: 1 InhalerRfl: 0 azithromycin (ZITHROMAX Z-JEREMY) 250 mg tabletTwo (2) tablets by mouth the first day and then one (1) tablet by mouth daily for 4 days.Disp: 6 tabletRfl: 0 CONSULT TO PULMONARY MEDICINE [[id number]] Order #: [id number]: 1 Prescriptions as of 05/24/2018 Sig: FLUTICASONE 500 MCG-SALMETERO* Inhale 1 Puff as instructed t* OXYCODONE-ACETAMINOPHEN 5 MG-* 1 po q4h prn breakthrough anthony* GABAPENTIN 300 MG CAPSULE take 3 capsules by mouth thre* DABIGATRAN ETEXILATE 150 MG C* Take 1 capsule by mouth twice* SPIRONOLACTONE 25 MG TABLET Take 1 tablet by mouth once d* VENLAFAXINE ER 150 MG CAPSULE* Take 2 capsules by mouth once* POTASSIUM CHLORIDE ER 20 MEQ * Take 1 tablet by mouth every * DICYCLOMINE 20 MG TABLET Take 1 tablet by mouth four t* OMEPRAZOLE 20 MG CAPSULE,VENESSA* Take 1 capsule by mouth once * LOPERAMIDE 2 MG CAPSULE Take 1 capsule by mouth as ne* CETIRIZINE 10 MG CAPSULE Take by mouth once daily. ERGOCALCIFEROL (VITAMIN D2) 5* Take 1 capsule by mouth every* LEVALBUTEROL HFA 45 MCG/ACTUA* Inhale 1-2 Puffs as instructe* AZITHROMYCIN 250 MG TABLET Two (2) tablets by mouth the * CLONAZEPAM 0.5 MG TABLET Take 1 tablet by mouth three * COMPOUNDED PRESCRIPTION Low Dose Naltrexone 2 mg cap* Patient not taking: Reported on 05/24/2018 LACOSAMIDE 100 MG TABLET Take 1 tablet by mouth twice * Problem List As Of Date 05/24/2018 Noted Resolved Cellulitis and abscess of leg, except foot [L03*INVALID FOR*02/25/2017 Methicillin susceptible Staphylococcus aureus i*INVALID FOR*02/25/2017 Pseudomonas infection in conditions classified *INVALID FOR*02/25/2017 Edema [R60.9] INVALID FOR*08/31/2017 Reflex sympathetic dystrophy of lower limb [G90*INVALID FOR* Psoas muscle abscess (HCC) [K68.12] INVALID FOR*02/25/2017 More... Candidiasis of unspecified site [B37.9] INVALID FOR*08/31/2017 More... Other streptococcus infection in conditions cla*INVALID FOR*02/25/2017 More... Bacteremia [R78.81] INVALID FOR*02/25/2017 Other lymphedema [I89.0] INVALID FOR*02/25/2017 Chronic pain syndrome [G89.4] INVALID FOR* Opioid type dependence, continuous (HCC) [F11.2*INVALID FOR* TOBACCO USE DISORDER [F17.200] Other convulsions [R56.9] INVALID FOR*02/25/2017 Priority: Moderate Sleep Hypovent Oth Dis [G47.36] INVALID FOR* Priority: Mild HYPOPOTASSEMIA [E87.6] INVALID FOR*02/28/2009 Priority: Moderate VENA CAVA THROMBOSIS [I82.220] INVALID FOR* Anemia, unspecified [D64.9] INVALID FOR*10/31/2017 Embolism and thrombosis (HCC) [I74.9] INVALID FOR*02/25/2017 Priority: B More... Other Pulmonary Embolism and Infarction [I26.99]INVALID FOR* Encounter for Long-Term (Current) Use of Antico*INVALID FOR* More... Left leg pain [M79.605] INVALID FOR*02/25/2017 Muscle spasm [M62.838] INVALID FOR* Leg pain [M79.606] INVALID FOR*02/25/2017 Depression, reactive [F32.9] 02/25/2017 More... Iron defic anemia NEC INVALID FOR*10/31/2017 Agitation [R45.1] INVALID FOR*02/25/2017 Other chronic pain [G89.29] INVALID FOR*12/03/2017 Priority: F More... Altered mental status [R41.82] INVALID FOR*05/19/2016 Chemical dependency (HCC) [F19.20] INVALID FOR* SUMMARY INVALID FOR*02/25/2017 Priority: A More... Left arm weakness [R29.898] INVALID FOR* Priority: B More... Chest pain [R07.9] INVALID FOR*10/31/2017 Priority: A More... Cellulitis [L03.90] INVALID FOR*02/25/2017 Priority: D More... Depression [F32.9] INVALID FOR* Priority: D More... Lethargy [R53.83] INVALID FOR* More... Seizure disorder (HCC) [G40.909] INVALID FOR*11/12/2017 More... Low BP [I95.9] INVALID FOR*08/31/2017 More... DJD (degenerative joint disease), cervical [M47* Anxiety state, unspecified [F41.1] 04/22/2014 Pain [R52] INVALID FOR*08/31/2017 Priority: B More... Fever [R50.9] INVALID FOR*02/25/2017 Priority: C More... Delirium [R41.0] INVALID FOR*02/25/2017 Priority: A More... Hematemesis [K92.0] INVALID FOR*02/25/2017 Priority: C More... Emphysema of lung (HCC) [J43.9] INVALID FOR* Smoker [F17.200] INVALID FOR*02/25/2017 Chronic deep vein thrombosis of left femoral ve*INVALID FOR* Vitamin D deficiency [E55.9] INVALID FOR* Psychosis [F29] INVALID FOR* GERD (gastroesophageal reflux disease) [K21.9] INVALID FOR* Asthma [J45.909] INVALID FOR* Orthostatic hypotension [I95.1] INVALID FOR*08/31/2017 More... Psychiatric disorder [F99] INVALID FOR* More... 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 Syncope [R55] INVALID FOR*08/31/2017 Intentional fentanyl overdose ([facility]) [T40.4X2A] INVALID FOR*08/31/2017 Nausea [R11.0] INVALID FOR* Delusional disorder (HCC) [F22] INVALID FOR* More... 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 Other instructions from your clinician: Please go to the [facility] level for chest x- ray, then you may go home. START z-pack as instructed today. TWO pills today, then ONE pill daily until completed. If the chest x-ray shows more concerning pneumonia, I will call and switch your antibiotic. START using xopenex inhaler every 4 hours as needed for wheezing and shortness of breath. START using your Advair inhaler TWICE DAILY every single day no matter what for maintenance and prevention of COPD exacerbation. Please see the radiology technician to follow-up. A consult was placed. You may call [phone] Castano tomorrow to address your skin concern and other healthcare needs. Take care, Denae Saldivar APRN.[facility] Visit Notes: >> Bianka (Erin) ERIN Brush TueMay 24, 2018 11:07 AM Status: Signed Edgardo Denson is a 52 year old female here today for visit in the [facility]. Pt has been identified by name and date of for verification. Allergies have been reviewed/verified and include the following: Cellacefate; Depakote [Divalproex Sodium]; Dilantin [Phenytoin Sodium Extended]; Fish Containing Products; Penicillin G; Shrimp; Sulfa (Sulfonamide Antibiotics); Topamax [Topiramate]; Haldol [Haloperidol]. Medication reviewed/updated by provider. Pharmacy verified Yes Has the patient had any recent labs: No Is the patient active on MyChart No: patient declines What is the patients preferred method of communication: Letter AMB ROOMING INTAKE FLOWSHEET DATA Risk Screening Do you have concerns about personal safety or safety in the home?: (pt declined to answer) Bianka Brush MA Prescriptions ordered this encounter Disp Refills Start End FLUTICASONE 500 MCG-SALMETEROL 50 MC* 1 Ea* 5 05/24/2018 Route: INHALATION Sig: Inhale 1 Puff as instructed twice daily. RINSE AND GARGLE MOUTH WITH WATER AFTER EACH USE. LEVALBUTEROL HFA 45 MCG/ACTUATION AE* 1 In* 0 05/24/2018 Route: INHALATION Sig: Inhale 1-2 Puffs as instructed every 4 hours as needed for Wheezing/Shortness of Breath. AZITHROMYCIN 250 MG TABLET 6 ta* 0 05/24/2018 Sig: Two (2) tablets by mouth the first day and then one (1) tablet by mouth daily for 4 days. Medications Discontinued During This Encounter azithromycin (ZITHROMAX Z-JEREMY) 250 m* 1 Pa* 0 04/06/2018 05/24/2018 Sig: Take 2 tablets first day then one tablet daily for next four days. Patient not taking: Reported on 05/24/2018 Disc: Course of therapy completed fluticasone-salmeterol (ADVAIR DISKU* 1 Ea* 5 07/27/2017 05/24/2018 Route: INHALATION Sig: Inhale 1 Puff as instructed twice daily. RINSE AND GARGLE MOUTH WITH WATER AFTER EACH USE. Disc: Reason for discontinue is not on file. Disposition: Return if symptoms worsen or fail to improve. Follow-up and Disposition History Recorded Encounter Status:Closed by DENAE SALDIVAR CNP on 05/24/18 PROGRESS Observed: 05/22/2018 Status: COMPLETED Source: [place] 6:13 PM [facility] REPOSITORY HNO ID: [id number] Author: Samira Betts Service: (none) Author Type: Nurse Practitioner Type: Progress Notes Filed: 05/22/2018 6:39 PM Note Text: Subjective Pt states hx chronic pain The history is provided by the patient. URI She complains of cough. There is no chest tightness, difficulty breathing, frequent throat clearing, hemoptysis, hoarse voice, shortness of breath, sputum production or wheezing. This is a new problem. Episode onset: 1 month ago. The problem occurs constantly. The problem has been unchanged. The cough is productive of sputum. Associated symptoms include chest pain, nasal congestion, postnasal drip, rhinorrhea, sneezing and a sore throat. Pertinent negatives include no ear congestion, ear pain, fever, headaches, malaise/fatigue, myalgias, sweats or weight loss. Relieved by: benadryl, zyrtec, tylenol. Risk factors for lung disease include smoking/tobacco exposure. Her past medical history is significant for asthma (atypical), bronchitis, COPD and pneumonia (mycoplasma - childhood). There is no history of bronchiectasis or emphysema. Review of Systems Constitutional: Negative for fever, malaise/fatigue and weight loss. HENT: Positive for postnasal drip, rhinorrhea, sneezing and sore throat. Negative for ear pain and hoarse voice. Respiratory: Positive for cough. Negative for hemoptysis, sputum production, shortness of breath and wheezing. Cardiovascular: Positive for chest pain. Musculoskeletal: Negative for myalgias. Neurological: Negative for headaches. Objective Physical Exam Constitutional: She is well-developed, well-nourished, and in no distress. No distress. HENT: Head: Normocephalic and atraumatic. Right Ear: Hearing, tympanic membrane, external ear and ear canal normal. Left Ear: Hearing, tympanic membrane, external ear and ear canal normal. Nose: Rhinorrhea present. Right sinus exhibits no maxillary sinus tenderness and no frontal sinus tenderness. Left sinus exhibits no maxillary sinus tenderness and no frontal sinus tenderness. Mouth/Throat: Uvula is midline, oropharynx is clear and moist and mucous membranes are normal. Cardiovascular: Normal rate, regular rhythm and normal heart sounds. Pulmonary/Chest: Effort normal and breath sounds normal. No accessory muscle usage. No tachypnea. No respiratory distress. She has no decreased breath sounds. She has no wheezes. She has no rhonchi. She has no rales. She exhibits no tenderness. Lymphadenopathy: Head (right side): No tonsillar adenopathy present. Head (left side): No tonsillar adenopathy present. She has no cervical adenopathy. Neurological: She is alert. Skin: She is not diaphoretic. Nursing note and vitals reviewed. 05/22/18 1758 BP: 102/81 Pulse: 118 Temp: 37 ?C (98.6 ?F) SpO2: 96% ASSESSMENT/PLAN: 1. Sore throat - ICD9: 462, ICD10: J02.9 - Discussed supportive care treatment with fluids, rest and analgesia. - RAPID STREP TEST B/O - negative - Pt appears to be having a psychotic episode, having flight of ideas, disorganized speech, talking incomprehensively. Pt states she has had a sinus infection with chest pain, URI, blood fungal and bacterial infection that she needs IV antibiotics for for 3-6 months, has had PE and can't follow up with her emergency veterinary technician because he in a car accident, my doctors never do sh*t and I need someone to look at my moles that are draining green stuff, she states she delivered her granddaughter herself and performed CPR on her. She states no one ever does anything for her when she sees drs or goes to ED as they just send her home. I explained to pt I am referring her to ED immediately and am going to call EMS. She refused and states she will not get into an ambulance, but will have her daughter (who is waiting in the car) take her there now. Samira Betts APRN.JOSSELINE FERREIRA Observed: 05/22/2018 Status: COMPLETED Source: [place] 5:55 PM [facility] REPOSITORY Office Visit (EXPBEA) EDGARDO DENSON ([id number]) 1965 F Date Time Provider Department 05/22/18 5:55 PM SAMIRA BETTS (JOSSELINE) EXPBEA During your visit today, we recorded the following information about you: Temperature Pulse Blood pressure 98.6 degrees 118/minute 102/81 Samira Betts, [employer] PARTNER CONSULTANT 05/22/2018 6:39 PM Signed Subjective Pt states hx chronic pain The history is provided by the patient. URI She complains of cough. There is no chest tightness, difficulty breathing, frequent throat clearing, hemoptysis, hoarse voice, shortness of breath, sputum production or wheezing. This is a new problem. Episode onset: 1 month ago. The problem occurs constantly. The problem has been unchanged. The cough is productive of sputum. Associated symptoms include chest pain, nasal congestion, postnasal drip, rhinorrhea, sneezing and a sore throat. Pertinent negatives include no ear congestion, ear pain, fever, headaches, malaise/fatigue, myalgias, sweats or weight loss. Relieved by: benadryl, zyrtec, tylenol. Risk factors for lung disease include smoking/tobacco exposure. Her past medical history is significant for asthma (atypical), bronchitis, COPD and pneumonia (mycoplasma - childhood). There is no history of bronchiectasis or emphysema. Review of Systems Constitutional: Negative for fever, malaise/fatigue and weight loss. HENT: Positive for postnasal drip, rhinorrhea, sneezing and sore throat. Negative for ear pain and hoarse voice. Respiratory: Positive for cough. Negative for hemoptysis, sputum production, shortness of breath and wheezing. Cardiovascular: Positive for chest pain. Musculoskeletal: Negative for myalgias. Neurological: Negative for headaches. Objective Physical Exam Constitutional: She is well-developed, well-nourished, and in no distress. No distress. HENT: Head: Normocephalic and atraumatic. Right Ear: Hearing, tympanic membrane, external ear and ear canal normal. Left Ear: Hearing, tympanic membrane, external ear and ear canal normal. Nose: Rhinorrhea present. Right sinus exhibits no maxillary sinus tenderness and no frontal sinus tenderness. Left sinus exhibits no maxillary sinus tenderness and no frontal sinus tenderness. Mouth/Throat: Uvula is midline, oropharynx is clear and moist and mucous membranes are normal. Cardiovascular: Normal rate, regular rhythm and normal heart sounds. Pulmonary/Chest: Effort normal and breath sounds normal. No accessory muscle usage. No tachypnea. No respiratory distress. She has no decreased breath sounds. She has no wheezes. She has no rhonchi. She has no rales. She exhibits no tenderness. Lymphadenopathy: Head (right side): No tonsillar adenopathy present. Head (left side): No tonsillar adenopathy present. She has no cervical adenopathy. Neurological: She is alert. Skin: She is not diaphoretic. Nursing note and vitals reviewed. 05/22/18 1758 BP: 102/81 Pulse: 118 Temp: 37 ?C (98.6 ?F) SpO2: 96% ASSESSMENT/PLAN: 1. Sore throat - ICD9: 462, ICD10: J02.9 - Discussed supportive care treatment with fluids, rest and analgesia. - RAPID STREP TEST B/O - negative - Pt appears to be having a psychotic episode, having flight of ideas, disorganized speech, talking incomprehensively. Pt states she has had a sinus infection with chest pain, URI, blood fungal and bacterial infection that she needs IV antibiotics for for 3-6 months, has had PE and can't follow up with her emergency veterinary technician because he in a car accident, my doctors never do sh*t and I need someone to look at my moles that are draining green stuff, she states she delivered her granddaughter herself and performed CPR on her. She states no one ever does anything for her when she sees drs or goes to ED as they just send her home. I explained to pt I am referring her to ED immediately and am going to call EMS. She refused and states she will not get into an ambulance, but will have her daughter (who is waiting in the car) take her there now. Saimra Betts APRN.JOSSELINE Betts APRN.JOSSELINE 05/22/2018 6:23 PM Signed Please go immediately to [facility] for further evaluation and management of your symptoms. Referring Provider: SELF [[id number]] Allergies As of Date: 05/22/2018 Noted Allergy Reaction CELLACEFATE 01/07/2006 7 - Swelling DEPAKOTE (DIVALPROEX SODIUM) 01/07/2006 8 - GI Upset DILANTIN (PHENYTOIN SODIUM EXTEND*06/03/2015 8 - GI Upset FISH CONTAINING PRODUCTS 05/13/2015 16 - Unknown PENICILLIN G 01/07/2006 8 - GI Upset Comments: tolerates zosyn . sdm. 03/2007 TOLERATES KEFLEX 3-31-11 SHRIMP 05/13/2015 16 - Unknown SULFA (SULFONAMIDE ANTIBIOTICS) 05/17/2007 8 - GI Upset Comments: Gastritis TOPAMAX (TOPIRAMATE) 05/21/2009 1 - Mental Status Change HALDOL (HALOPERIDOL) 02/03/2008 1 - Mental Status Change 3 - Cough 8 - GI Upset 9 - Itching Date Reviewed: 05/22/2018 Reviewed by: Samira ([facility]) Roxane - Fully Assessed Primary Visit Diagnosis:Sore throat [J02.9] Order(s):RAPID STREP TEST B/O [[id number]] Order #: [id number] Prescriptions as of 05/22/2018 Sig: OXYCODONE-ACETAMINOPHEN 5 MG-* 1 po q4h prn breakthrough anthony* GABAPENTIN 300 MG CAPSULE take 3 capsules by mouth thre* CLONAZEPAM 0.5 MG TABLET Take 1 tablet by mouth three * AZITHROMYCIN 250 MG TABLET Take 2 tablets first day then* DABIGATRAN ETEXILATE 150 MG C* Take 1 capsule by mouth twice* SPIRONOLACTONE 25 MG TABLET Take 1 tablet by mouth once d* VENLAFAXINE ER 150 MG CAPSULE* Take 2 capsules by mouth once* POTASSIUM CHLORIDE ER 20 MEQ * Take 1 tablet by mouth every * COMPOUNDED PRESCRIPTION Low Dose Naltrexone 2 mg cap* LACOSAMIDE 100 MG TABLET Take 1 tablet by mouth twice * DICYCLOMINE 20 MG TABLET Take 1 tablet by mouth four t* OMEPRAZOLE 20 MG CAPSULE,VENESSA* Take 1 capsule by mouth once * FLUTICASONE 500 MCG-SALMETERO* Inhale 1 Puff as instructed t* LOPERAMIDE 2 MG CAPSULE Take 1 capsule by mouth as ne* CETIRIZINE 10 MG CAPSULE Take by mouth once daily. ERGOCALCIFEROL (VITAMIN D2) 5* Take 1 capsule by mouth every* Problem List As Of Date 05/22/2018 Noted Resolved Cellulitis and abscess of leg, except foot [L03*INVALID FOR*02/25/2017 Methicillin susceptible Staphylococcus aureus i*INVALID FOR*02/25/2017 Pseudomonas infection in conditions classified *INVALID FOR*02/25/2017 Edema [R60.9] INVALID FOR*08/31/2017 Reflex sympathetic dystrophy of lower limb [G90*INVALID FOR* Psoas muscle abscess (HCC) [K68.12] INVALID FOR*02/25/2017 More... Candidiasis of unspecified site [B37.9] INVALID FOR*08/31/2017 More... Other streptococcus infection in conditions cla*INVALID FOR*02/25/2017 More... Bacteremia [R78.81] INVALID FOR*02/25/2017 Other lymphedema [I89.0] INVALID FOR*02/25/2017 Chronic pain syndrome [G89.4] INVALID FOR* Opioid type dependence, continuous (HCC) [F11.2*INVALID FOR* TOBACCO USE DISORDER [F17.200] Other convulsions [R56.9] INVALID FOR*02/25/2017 Priority: Moderate Sleep Hypovent Oth Dis [G47.36] INVALID FOR* Priority: Mild HYPOPOTASSEMIA [E87.6] INVALID FOR*02/28/2009 Priority: Moderate VENA CAVA THROMBOSIS [I82.220] INVALID FOR* Anemia, unspecified [D64.9] INVALID FOR*10/31/2017 Embolism and thrombosis (HCC) [I74.9] INVALID FOR*02/25/2017 Priority: B More... Other Pulmonary Embolism and Infarction [I26.99]INVALID FOR* Encounter for Long-Term (Current) Use of Antico*INVALID FOR* More... Left leg pain [M79.605] INVALID FOR*02/25/2017 Muscle spasm [M62.838] INVALID FOR* Leg pain [M79.606] INVALID FOR*02/25/2017 Depression, reactive [F32.9] 02/25/2017 More... Iron defic anemia NEC INVALID FOR*10/31/2017 Agitation [R45.1] INVALID FOR*02/25/2017 Other chronic pain [G89.29] INVALID FOR*12/03/2017 Priority: F More... Altered mental status [R41.82] INVALID FOR*05/19/2016 Chemical dependency (HCC) [F19.20] INVALID FOR* SUMMARY INVALID FOR*02/25/2017 Priority: A More... Left arm weakness [R29.898] INVALID FOR* Priority: B More... Chest pain [R07.9] INVALID FOR*10/31/2017 Priority: A More... Cellulitis [L03.90] INVALID FOR*02/25/2017 Priority: D More... Depression [F32.9] INVALID FOR* Priority: D More... Lethargy [R53.83] INVALID FOR* More... Seizure disorder (HCC) [G40.909] INVALID FOR*11/12/2017 More... Low BP [I95.9] INVALID FOR*08/31/2017 More... DJD (degenerative joint disease), cervical [M47* Anxiety state, unspecified [F41.1] 04/22/2014 Pain [R52] INVALID FOR*08/31/2017 Priority: B More... Fever [R50.9] INVALID FOR*02/25/2017 Priority: C More... Delirium [R41.0] INVALID FOR*02/25/2017 Priority: A More... Hematemesis [K92.0] INVALID FOR*02/25/2017 Priority: C More... Emphysema of lung (HCC) [J43.9] INVALID FOR* Smoker [F17.200] INVALID FOR*02/25/2017 Chronic deep vein thrombosis of left femoral ve*INVALID FOR* Vitamin D deficiency [E55.9] INVALID FOR* Psychosis [F29] INVALID FOR* GERD (gastroesophageal reflux disease) [K21.9] INVALID FOR* Asthma [J45.909] INVALID FOR* Orthostatic hypotension [I95.1] INVALID FOR*08/31/2017 More... Psychiatric disorder [F99] INVALID FOR* More... 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 Syncope [R55] INVALID FOR*08/31/2017 Intentional fentanyl overdose (HCC) [T40.4X2A] INVALID FOR*08/31/2017 Nausea [R11.0] INVALID FOR* Delusional disorder (HCC) [F22] INVALID FOR* More... 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 Other instructions from your clinician: Please go immediately to [facility] for further evaluation and management of your symptoms. Encounter Status:Closed by SAMIRA BETTS on 05/22/18 RQAUEL Observed: 05/16/2018 Status: COMPLETED Source: [place] 12:00 AM [facility] REPOSITORY Patient Outreach (FAMPST) EDGARDO DENSON ([id number]) 1965 F Date Time Provider Department 05/16/[facility] visit today, we recorded the following information about you: Allergies As of Date: 05/16/2018 Noted Allergy Reaction CELLACEFATE 01/07/2006 7 - Swelling DEPAKOTE (DIVALPROEX SODIUM) 01/07/2006 8 - GI Upset DILANTIN (PHENYTOIN SODIUM EXTEND*06/03/2015 8 - GI Upset FISH CONTAINING PRODUCTS 05/13/2015 16 - Unknown PENICILLIN G 01/07/2006 8 - GI Upset Comments: tolerates zosyn . sdm. 03/2007 TOLERATES KEFLEX 3-31-11 SHRIMP 05/13/2015 16 - Unknown SULFA (SULFONAMIDE ANTIBIOTICS) 05/17/2007 8 - GI Upset Comments: Gastritis TOPAMAX (TOPIRAMATE) 05/21/2009 1 - Mental Status Change HALDOL (HALOPERIDOL) 02/03/2008 1 - Mental Status Change 3 - Cough 8 - GI Upset 9 - Itching Date Reviewed: 04/28/2018 Reviewed by: Eri Cisneros Ma - Fully Assessed Visit Diagnosis:Medication management [Z79.899] Order(s):LIPID PANEL BASIC [SQLIPB] Order #: [id number] FUTURE Prescriptions as of 05/16/2018 Sig: X OXYCODONE-ACETAMINOPHEN 5 MG-* 1 po q4h prn breakthrough anthony* GABAPENTIN 300 MG CAPSULE take 3 capsules by mouth thre* X CLONAZEPAM 0.5 MG TABLET Take 1 tablet by mouth three * X AZITHROMYCIN 250 MG TABLET Take 2 tablets first day then* Patient not taking: Reported on 05/24/2018 X DABIGATRAN ETEXILATE 150 MG C* Take 1 capsule by mouth twice* SPIRONOLACTONE 25 MG TABLET Take 1 tablet by mouth once d* X VENLAFAXINE ER 150 MG CAPSULE* Take 2 capsules by mouth once* POTASSIUM CHLORIDE ER 20 MEQ * Take 1 tablet by mouth every * COMPOUNDED PRESCRIPTION Low Dose Naltrexone 2 mg cap* LACOSAMIDE 100 MG TABLET Take 1 tablet by mouth twice * DICYCLOMINE 20 MG TABLET Take 1 tablet by mouth four t* OMEPRAZOLE 20 MG CAPSULE,VENESSA* Take 1 capsule by mouth once * X FLUTICASONE 500 MCG-SALMETERO* Inhale 1 Puff as instructed t* LOPERAMIDE 2 MG CAPSULE Take 1 capsule by mouth as ne* CETIRIZINE 10 MG CAPSULE Take by mouth once daily. ERGOCALCIFEROL (VITAMIN D2) 5* Take 1 capsule by mouth every* Problem List As Of Date 05/16/2018 Noted Resolved Cellulitis and abscess of leg, except foot [L03*INVALID FOR*02/25/2017 Methicillin susceptible Staphylococcus aureus i*INVALID FOR*02/25/2017 Pseudomonas infection in conditions classified *INVALID FOR*02/25/2017 Edema [R60.9] INVALID FOR*08/31/2017 Reflex sympathetic dystrophy of lower limb [G90*INVALID FOR* Psoas muscle abscess (HCC) [K68.12] INVALID FOR*02/25/2017 More... Candidiasis of unspecified site [B37.9] INVALID FOR*08/31/2017 More... Other streptococcus infection in conditions cla*INVALID FOR*02/25/2017 More... Bacteremia [R78.81] INVALID FOR*02/25/2017 Other lymphedema [I89.0] INVALID FOR*02/25/2017 Chronic pain syndrome [G89.4] INVALID FOR* Opioid type dependence, continuous (HCC) [F11.2*INVALID FOR* TOBACCO USE DISORDER [F17.200] Other convulsions [R56.9] INVALID FOR*02/25/2017 Priority: Moderate Sleep Hypovent Oth Dis [G47.36] INVALID FOR* Priority: Mild HYPOPOTASSEMIA [E87.6] INVALID FOR*02/28/2009 Priority: Moderate VENA CAVA THROMBOSIS [I82.220] INVALID FOR* Anemia, unspecified [D64.9] INVALID FOR*10/31/2017 Embolism and thrombosis (HCC) [I74.9] INVALID FOR*02/25/2017 Priority: B More... Other Pulmonary Embolism and Infarction [I26.99]INVALID FOR* Encounter for Long-Term (Current) Use of Antico*INVALID FOR* More... Left leg pain [M79.605] INVALID FOR*02/25/2017 Muscle spasm [M62.838] INVALID FOR* Leg pain [M79.606] INVALID FOR*02/25/2017 Depression, reactive [F32.9] 02/25/2017 More... Iron defic anemia NEC INVALID FOR*10/31/2017 Agitation [R45.1] INVALID FOR*02/25/2017 Other chronic pain [G89.29] INVALID FOR*12/03/2017 Priority: F More... Altered mental status [R41.82] INVALID FOR*05/19/2016 Chemical dependency (HCC) [F19.20] INVALID FOR* SUMMARY INVALID FOR*02/25/2017 Priority: A More... Left arm weakness [R29.898] INVALID FOR* Priority: B More... Chest pain [R07.9] INVALID FOR*10/31/2017 Priority: A More... Cellulitis [L03.90] INVALID FOR*02/25/2017 Priority: D More... Depression [F32.9] INVALID FOR* Priority: D More... Lethargy [R53.83] INVALID FOR* More... Seizure disorder (HCC) [G40.909] INVALID FOR*11/12/2017 More... Low BP [I95.9] INVALID FOR*08/31/2017 More... DJD (degenerative joint disease), cervical [M47* Anxiety state, unspecified [F41.1] 04/22/2014 Pain [R52] INVALID FOR*08/31/2017 Priority: B More... Fever [R50.9] INVALID FOR*02/25/2017 Priority: C More... Delirium [R41.0] INVALID FOR*02/25/2017 Priority: A More... Hematemesis [K92.0] INVALID FOR*02/25/2017 Priority: C More... Emphysema of lung (HCC) [J43.9] INVALID FOR* Smoker [F17.200] INVALID FOR*02/25/2017 Chronic deep vein thrombosis of left femoral ve*INVALID FOR* Vitamin D deficiency [E55.9] INVALID FOR* Psychosis [F29] INVALID FOR* GERD (gastroesophageal reflux disease) [K21.9] INVALID FOR* Asthma [J45.909] INVALID FOR* Orthostatic hypotension [I95.1] INVALID FOR*08/31/2017 More... Psychiatric disorder [F99] INVALID FOR* More... DVT (deep venous thrombosis) (HCC) [I82.409] INVALID FOR*02/25/2017 [facility] current use of anticoagulant [Z79.01] INVALID FOR*02/25/2017 More... 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 Syncope [R55] INVALID FOR*08/31/2017 Intentional fentanyl overdose (HCC) [T40.4X2A] INVALID FOR*08/31/2017 Nausea [R11.0] INVALID FOR* Delusional disorder (HCC) [F22] INVALID FOR* More... 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 Encounter Status:Closed by [employer], [employer] on 06/16/18 PROGRESS Observed: 04/28/2018 Status: COMPLETED Source: [place] 3:44 PM [facility] REPOSITORY O ID: [id number] Author: Lilo Ortiz Service: (none) Author Type: Physician Type: Progress Notes Filed: 05/01/2018 5:13 PM Note Text: EPILEPSY CLINIC NOTE - INITIAL VISIT CHIEF COMPLAINT: seizures, here for further evaluation and treatment. Per patient, Epilepsy Consult requested by Dr. Carlos Rae, her neurologist, but there is no mention of this in his last clinic note in [facility] (12/16/2017). She arrived 45 minutes late to her 60-minute appointment. She is here alone. PRESENT ILLNESS This is a 52 year old left-handed woman who presents with a chief complaint of seizures. The history of seizures began in 1999, per patient, but new episodes of passing out started in October 2017. Episodes of passing out: Started October 2017, per patient. No aura. Often just found on the floor. No UI. No tongue biting. Last passing out episode was last night: pt does not remember; she was found on floor; she does not know how long she was out Frequency: 2-3/week Per patient: About 2 years ago (2015), episodes of LOC. She was unresponsive, naked, covered in urine, feces - police found her She was taken to [facility]; she does not remember how long she was hospitalized; she was discharged to [facility] for 2 months. She found unresponsive again by daughter, late . Grand mal seizures -1996 MRSA; seizures started in 1999 -aura of she knew something was about to happen, then LOC; would convulse duration: unclear frequency: 1-2/week, started on GBP in 1999; LEV added and szs better controlled until 7 years ago then LCM added last GTC was forever > 5 years ago LEV and LCM were stopped 4 years ago LCM restarted one year ago due to passing out episodes. 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 Per EMR (10/24/2009 Neurology Clinic note): One witnessed GTC (1997). Followed by Dr. Rae who performed a routine and 24 hours EEG which were unrevealing. She was treated presumptively for a seizure disorder with VPA, CPZ with adverse reactions (I had hemorrhagic gastritis); later tried Neurontin (up to 2700 mg/day) and Keppra (up to 1500 mg/day). She was seizure free until 2007; she had another generalized seizure and was switched from Keppra to TPM, but TPM caused a massive change in mental status, falling down drunk. Switched back to Keppra (1500 mg/day) and had been doing well until mid 2008. Per Dr. [facility] 11/05/2009: She describes black out spells which began in June 2009. She has a warning sensation described as a heavy sensation in her eyes, she is still awake and alert, this progresses to a point when she becomes unable to walk and then she becomes unresponsive even to pain stimuli. Her arms shakes and she remembers that. There is no urine or stool incontinence. Nothing triggers this. Duration is 3-12 hours. When she wakes up she is fully alert and she does not know what happened. Daughter called 911 sever times because she can not wake her up. Apparently she can answer questions and follow commands during this period. Frequency: daily for the 3 weeks She did not try any medication for this. However she states that she is on Neurontin and Keppra She is allergic to VPA , stomach sickness, CBZ she developed hives. PSG/EEG 12/2009 showed severe central apnea which was likely related to narcotic use. Per Epilepsy Clinic note 04/23/2014, pt was admitted for video-EEG late March 2014. AEDs (LEV and LCM) were stopped. Episodes of unresponsiveness were recorded, with no EEG change. Pt was not accepting of the diagnosis of psychogenic nonepileptic seizures. Multiple ED visits for syncope/seizures in 2015. Seen at [facility] 11/12/2017 for syncopal episodes, left AMA. Seen in [facility] ED 11/23/[address] Rae 12/16/2017; no changes made. Seen at [facility] 03/24/2018 for slurred speech, weakness, lethargy; she was discharged. She was at PCP 03/27, when she was found on the floor after syncopal event. She was taken to [facility], discharged 03/28/18. Main doctors: -Dr. Castano (PCP) -Dr. Carlos Rae (neurologist: seizures, shingles, serotonin syndrome (confusion, disoriented, sick sleep) in 2002) -different psychiatrists/psychologists at [facility] - started Effexor but now PCP prescribes and early development: normal and early development RISK FACTORS FOR SEIZURES 1. Head Trauma (No); 2. SOCIAL MEDIA MARKETING MANAGER Infections (Yes, atypical viral meningitis in college in 1980's, not hospitalized; apparently attributed to compazine, lasted just 2-3 days); 3. Family History of Seizures (No); 4. Developmental Delay (No); 5. Febrile Seizures (No); 6. SOCIAL MEDIA MARKETING MANAGER Tumors (No); 7. SOCIAL MEDIA MARKETING MANAGER Vascular Disease (Yes, per patient); 8. Significant Medical History (Yes, see below). CURRENT MEDICATION Current Outpatient Prescriptions: lacosamide (VIMPAT) 100 mg tab Take 1 tablet by mouth twice daily for 30 days. gabapentin (NEURONTIN) 300 mg capsule take 3 capsules by mouth three times a day clonazePAM (KLONOPIN) 0.5 mg tablet Take 1 tablet by mouth three times daily as needed for up to 30 days. azithromycin (ZITHROMAX Z-JEREMY) 250 mg tablet Take 2 tablets first day then one tablet daily for next four days. [START ON 05/06/2018] oxyCODONE-acetaminophen (PERCOCET) 5- 325 mg tablet 1 po q4h prn breakthrough pain (MAXIMUM 5 pills/day) dabigatran etexilate (PRADAXA) 150 mg cap Take 1 capsule by mouth twice daily. spironolactone (ALDACTONE) 25 mg tablet Take 1 tablet by mouth once daily as needed. Takes as needed venlafaxine ER (EFFEXOR XR) 150 mg 24 hr capsule Take 2 capsules by mouth once daily. potassium chloride 20 mEq TbER Take 1 tablet by mouth every Tuesday,Tuesday,Tuesday. COMPOUNDED PRESCRIPTION Low Dose Naltrexone2 mg capsule (do not use calcium filler)Take one capsule by mouth at 9:00 PM every night dicyclomine (BENTYL) 20 mg tablet Take 1 tablet by mouth four times daily. omeprazole (PRILOSEC) 20 mg capsule Take 1 capsule by mouth once daily. fluticasone-salmeterol (ADVAIR DISKUS) 500-50 mcg/dose dsdv Inhale 1 Puff as instructed twice daily. RINSE AND GARGLE MOUTH WITH WATER AFTER EACH USE. loperamide (IMODIUM) 2 mg cap(s) Take 1 capsule by mouth as needed for Diarrhea. Cetirizine (ZYRTEC) 10 mg cap Take by mouth once daily. ergocalciferol, vitamin D2, (DRISDOL) 50,000 unit capsule Take 1 capsule by mouth every Tuesday. Indications: VITAMIN D DEFICIENCY No current facility-administered medications for this visit. Current AEDs: LCM 100 mg BID - prescribed by Dr. Rae GBP 900 mg TID - prescribed by PCP CLN 0.5 mg TID (helps spasms in the GI tract, neck) - prescribed by PCP PAST MEDICAL HISTORY PAST MEDICAL HISTORY Diagnosis Date - Asthma - Cellulitis and abscess of leg, except foot 03/01/2007 Orig Leg issue 1996 - Chronic pain syndrome 05/27/2008 Post-herpetic Neuralgia - Depression, reactive - DJD (degenerative joint disease), cervical - Esophageal reflux Hemorrhagic gastritis / hx GI - Headache - Muscle spasm BZD - Other convulsions 02/25/2009 - PE (pulmonary embolism) 07/2006 - [facility]H - PAST MEDICAL HISTORY OF 07/19/2005 h/o right leg DVT, PE, s/p IVC filter - [facility] - PAST MEDICAL HISTORY OF 2005 h/o Osteomyelitis infection - Sleep disturbance, unspecified sleep study 12/21 didn't show sleep apnea but some central apneas - Syncope Dr. 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 Chronic pain - Fentanyl was stopped earlier this year Strokes x 3 - last was about 5 years ago ([facility] or ) PAST SURGICAL HISTORY PAST SURGICAL HISTORY Procedure Laterality Date - DELIVERY ONLY , low transverse - COLONOSCOP W/ OR W/O [facility] SPEC Colonoscopy - EGD W/O OR W/BRUSH/WASH EGD - LAPAROSCOPIC CHOLEYCYSTECTOMY Cholecystectomy, lap - PAST SURGICAL HISTORY OF 07/20 s/p IVC filter by Dr. Mcpherson - PAST SURGICAL HISTORY OF leg debridements for MRSA FAMILY HISTORY FAMILY HISTORY Problem Relation Age of Onset - Ischemic Heart Disease Mother - Stroke Mother - Diabetes Father - other (renal cell cancer) Father Testical cancer, primary renal cancer - other (testicular cancer) Father - Lipids Sister - Lipids Brother - Colon Cancer Paternal Grandmother - other (stomach cancer) Paternal Grandmother - Breast Cancer No Family History SOCIAL HISTORY Social History Marital status: Spouse name: Years of education: Number of children: 1 Occupational History Occupation Employer Comment [employer]* Social History Main Topics Smoking status: Current Every Day Smoker Packs/day: 0.50 Years: 12.00 Types: Cigarettes Smokeless tobacco: Never Used Comment: Currently smokes two cigarettes a day Alcohol use: No Drug use: No Sexual activity: Not Currently Social History Narrative Lives w/ dtr EXAM deferred as she arrived 45 minutes late DATA Prior EEG results were reviewed. -EEG (05/17/2016, [facility]): normal -EEG (03/22/2016, [facility]): BG, slow; CS, gen max left TP -EEG (02/27/2015, [facility]): normal -EEG (09/07/2013, [facility]): excessive beta -EEG (05/17/2012, [facility]): normal -EEG (10/24/2009, [facility]): normal -portable EEG (09/11/2009, [facility]): normal -portable EEG (04/04/2007, [facility]): normal PSG/EEG (12/29/2009): IMPRESSION: 1. Normal overnight EEG. There were no epileptiform discharges or seizures recorded. 2. Severe sleep apnea syndrome. Respiratory events were central in nature and associated with oxygen desaturations (shauna of 78% on room air). This could possibly be due to pain medication effect (Oxycodone). Due to apnea severity, the scheduled MSLT was cancelled. 3. Abnormal sleep architecture likely due to respiratory events and first night effect. Prior neuroimaging results were reviewed. -CT brain (03/24/2018, [facility]): Age-appropriate stable and unremarkable head CT. -MRI/MRA(05/16/2016, [facility]): No acute intracranial findings. ?Normal morphology and signal intensity of the brain parenchyma. No large vessel occlusion, significant focal narrowing, or aneurysm on intracranial [id number] MRA. 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 -MRI brain (02/25/2015, [facility]): NO ACUTE INFARCT. NORMAL BRAIN PARENCHYMA. RECENT CT FINDINGS RESULT OF ARTIFACT. PERSISTENT TRIGEMINAL ARTERY. -MRI brain (09/06/2013, [facility]): No acute findings. ?Brain parenchyma shows normal signal and morphology for age. Incidental persistent trigeminal artery, connecting right ICA with basilar artery. ?This represents an arterial anatomic variant. IMPRESSION 52yo woman with complicated medical history including depression, anxiety, chronic pain, seizures since 1999, here with reports of new episodes of LOC since 10/2017, of unclear etiology. Upon review of her EMR, it is not clear to mean that episodes of LOC are new. She has had multiple EEGs over the years including video-EEG at in 2013 which captured episodes of unresponsiveness without EEG change. She apparently was not accepting of PNES diagnosis at that time. She receives her medical care from multiple hospital systems, which complicates the situation. PLAN 1. Prolonged outpatient EEG to evaluate for epileptiform discharges. 2. If outpatient EEG is unrevealing, will proceed to inpatient video-EEG for diagnosis. 3. Continue LCM, prescribed by Dr. Rae. 4. Return to clinic after EEG. She should continue to refrain from driving. The patient agreed with the plan as outlined above. Lilo Ortiz MD cc: Dr. Carlos Rae CNOV Observed: 04/28/2018 Status: COMPLETED Source: [place] 2:10 PM [facility] REPOSITORY Office Visit ([id number]) EDGARDO DENSON ([id number]) 1965 F Date Time Provider Department 04/28/18 2:10 PM MELANIE WEBSTER (FAITH) [id number] During your visit today, we recorded the following information about you: Pulse Respiration Blood pressure Weight 92/minute 14/minute 118/73 60.9 kg Height 1.626 m Lilo Ortiz MD 05/01/2018 5:13 PM Signed EPILEPSY CLINIC NOTE - INITIAL VISIT CHIEF COMPLAINT: seizures, here for further evaluation and treatment. Per patient, Epilepsy Consult requested by Dr. Carlos Rae, her neurologist, but there is no mention of this in his last clinic note in [facility] (12/16/2017). She arrived 45 minutes late to her 60-minute appointment. She is here alone. PRESENT ILLNESS This is a 52 year old left-handed woman who presents with a chief complaint of seizures. The history of seizures began in 1999, per patient, but new episodes of passing out started in October 2017. Episodes of passing out: Started October 2017, per patient. No aura. Often just found on the floor. No UI. No tongue biting. Last passing out episode was last night: pt does not remember; she was found on floor; she does not know how long she was out Frequency: 2-3/week Per patient: About 2 years ago (2015), episodes of LOC. She was unresponsive, naked, covered in urine, feces - police found her She was taken [facility]; she does not remember how long she was hospitalized; she was discharged to [facility] for 2 months. She found unresponsive again by daughter, late 2015/2016. Grand mal seizures -1996 MRSA; seizures started in 1999 -aura of she knew something was about to happen, then LOC; would convulse duration: unclear frequency: 1-2/week, started on GBP in 1999; LEV added and szs better controlled until 7 years ago then LCM added last GTC was forever > 5 years ago LEV and LCM were stopped 4 years ago LCM restarted one year ago due to passing out episodes. 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 Per EMR (10/24/2009 Neurology Clinic note): One witnessed GTC (1997). Followed by Dr. Rae who performed a routine and 24 hours EEG which were unrevealing. She was treated presumptively for a seizure disorder with VPA, CPZ with adverse reactions (I had hemorrhagic gastritis); later tried Neurontin (up to 2700 mg/day) and Keppra (up to 1500 mg/day). She was seizure free until 2007; she had another generalized seizure and was switched from Keppra to TPM, but TPM caused a massive change in mental status, falling down drunk. Switched back to Keppra (1500 mg/day) and had been doing well until mid 2008. Per Dr. [facility] note 11/05/2009: She describes black out spells which began in June 2009. She has a warning sensation described as a heavy sensation in her eyes, she is still awake and alert, this progresses to a point when she becomes unable to walk and then she becomes unresponsive even to pain stimuli. Her arms shakes and she remembers that. There is no urine or stool incontinence. Nothing triggers this. Duration is 3-12 hours. When she wakes up she is fully alert and she does not know what happened. Daughter called 911 sever times because she can not wake her up. Apparently she can answer questions and follow commands during this period. Frequency: daily for the 3 weeks She did not try any medication for this. However she states that she is on Neurontin and Keppra She is allergic to VPA , stomach sickness, CBZ she developed hives. PSG/EEG 12/2009 showed severe central apnea which was likely related to narcotic use. Per Epilepsy Clinic note 04/23/2014, pt was admitted for video-EEG late March 2014. AEDs (LEV and LCM) were stopped. Episodes of unresponsiveness were recorded, with no EEG change. Pt was not accepting of the diagnosis of psychogenic nonepileptic seizures. Multiple ED visits for syncope/seizures in 2015. Seen at [facility] 11/12/2017 for syncopal episodes, left AMA. Seen in [facility] ED 11/23/[address] Rae 12/16/2017; no changes made. Seen at [facility] 03/24/2018 for slurred speech, weakness, lethargy; she was discharged. She was at PCP 03/27, when she was found on the floor after syncopal event. She was taken to [facility], discharged 03/28/18. Main doctors: -Dr. Castano (PCP) -Dr. Carlos Rae (neurologist: seizures, shingles, serotonin syndrome (confusion, disoriented, sick sleep) in 2002) -different psychiatrists/psychologists at [facility] - started Effexor but now PCP prescribes and early development: normal and early development RISK FACTORS FOR SEIZURES 1. Head Trauma (No); 2. 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 Family History of Seizures (No); 4. Developmental Delay (No); 5. Febrile Seizures (No); 6. SOCIAL MEDIA MARKETING MANAGER Tumors (No); 7. SOCIAL MEDIA MARKETING MANAGER Vascular Disease (Yes, per patient); 8. Significant Medical History (Yes, see below). CURRENT MEDICATION Current Outpatient Prescriptions: lacosamide (VIMPAT) 100 mg tab Take 1 tablet by mouth twice daily for 30 days. gabapentin (NEURONTIN) 300 mg capsule take 3 capsules by mouth three times a day clonazePAM (KLONOPIN) 0.5 mg tablet Take 1 tablet by mouth three times daily as needed for up to 30 days. azithromycin (ZITHROMAX Z-JEREMY) 250 mg tablet Take 2 tablets first day then one tablet daily for next four days. [START ON 05/06/2018] oxyCODONE-acetaminophen (PERCOCET) 5- 325 mg tablet 1 po q4h prn breakthrough pain (MAXIMUM 5 pills/day) dabigatran etexilate (PRADAXA) 150 mg cap Take 1 capsule by mouth twice daily. spironolactone (ALDACTONE) 25 mg tablet Take 1 tablet by mouth once daily as needed. Takes as needed venlafaxine ER (EFFEXOR XR) 150 mg 24 hr capsule Take 2 capsules by mouth once daily. potassium chloride 20 mEq TbER Take 1 tablet by mouth every Tuesday,Tuesday,Tuesday. COMPOUNDED PRESCRIPTION Low Dose Naltrexone2 mg capsule (do not use calcium filler)Take one capsule by mouth at 9:00 PM every night dicyclomine (BENTYL) 20 mg tablet Take 1 tablet by mouth four times daily. omeprazole (PRILOSEC) 20 mg capsule Take 1 capsule by mouth once daily. fluticasone-salmeterol (ADVAIR DISKUS) 500-50 mcg/dose dsdv Inhale 1 Puff as instructed twice daily. RINSE AND GARGLE MOUTH WITH WATER AFTER EACH USE. loperamide (IMODIUM) 2 mg cap(s) Take 1 capsule by mouth as needed for Diarrhea. Cetirizine (ZYRTEC) 10 mg cap Take by mouth once daily. ergocalciferol, vitamin D2, (DRISDOL) 50,000 unit capsule Take 1 capsule by mouth every Tuesday. Indications: VITAMIN D DEFICIENCY No current facility-administered medications for this visit. Current AEDs: LCM 100 mg BID - prescribed by Dr. Rae GBP 900 mg TID - prescribed by PCP CLN 0.5 mg TID (helps spasms in the GI tract, neck) - prescribed by PCP PAST MEDICAL HISTORY PAST MEDICAL HISTORY Diagnosis Date - Asthma - Cellulitis and abscess of leg, except foot 03/01/2007 Orig Leg issue 1996 - Chronic pain syndrome 05/27/2008 Post-herpetic Neuralgia - Depression, reactive - DJD (degenerative joint disease), cervical - Esophageal reflux Hemorrhagic gastritis / hx GI - Headache - Muscle spasm BZD - Other convulsions 02/25/2009 - PE (pulmonary embolism) 07/2006 - [facility]H - PAST MEDICAL HISTORY OF 07/19/2005 h/o right leg DVT, PE, s/p IVC filter - [facility] - PAST MEDICAL HISTORY OF 2005 h/o Osteomyelitis infection - Sleep disturbance, unspecified sleep study 12/21 didn't show sleep apnea but some central apneas - Syncope Dr. 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 Chronic pain - Fentanyl was stopped earlier this year Strokes x 3 - last was about 5 years ago ([facility] or ) PAST SURGICAL HISTORY PAST SURGICAL HISTORY Procedure Laterality Date - DELIVERY ONLY , low transverse - COLONOSCOP W/ OR W/O [facility] SPEC Colonoscopy - EGD W/O OR W/BRUSH/WASH EGD - LAPAROSCOPIC CHOLEYCYSTECTOMY Cholecystectomy, lap - PAST SURGICAL HISTORY OF 07/20 s/p IVC filter by Dr. Mcpherson - PAST SURGICAL HISTORY OF leg debridements for MRSA FAMILY HISTORY FAMILY HISTORY Problem Relation Age of Onset - Ischemic Heart Disease Mother - Stroke Mother - Diabetes Father - other (renal cell cancer) Father Testical cancer, primary renal cancer - other (testicular cancer) Father - Lipids Sister - Lipids Brother - Colon Cancer Paternal Grandmother - other (stomach cancer) Paternal Grandmother - Breast Cancer No Family History SOCIAL HISTORY Social History Marital status: Spouse name: Years of education: Number of children: 1 Occupational History Occupation Employer Comment [employer]* Social History Main Topics Smoking status: Current Every Day Smoker Packs/day: 0.50 Years: 12.00 Types: Cigarettes Smokeless tobacco: Never Used Comment: Currently smokes two cigarettes a day Alcohol use: No Drug use: No Sexual activity: Not Currently Social History Narrative Lives w/ dtr EXAM deferred as she arrived 45 minutes late DATA Prior EEG results were reviewed. -EEG (05/17/2016, [facility]): normal -EEG (03/22/2016, [facility]): BG, slow; CS, gen max left TP -EEG (02/27/2015, [facility]): normal -EEG (09/07/2013, [facility]): excessive beta -EEG (05/17/2012, [facility]): normal -EEG (10/24/2009, [facility]): normal -portable EEG (09/11/2009, [facility]): normal -portable EEG (04/04/2007, [facility]): normal PSG/EEG (12/29/2009): IMPRESSION: 1. Normal overnight EEG. There were no epileptiform discharges or seizures recorded. 2. Severe sleep apnea syndrome. Respiratory events were central in nature and associated with oxygen desaturations (shauna of 78% on room air). This could possibly be due to pain medication effect (Oxycodone). Due to apnea severity, the scheduled MSLT was cancelled. 3. Abnormal sleep architecture likely due to respiratory events and first night effect. Prior neuroimaging results were reviewed. -CT brain (03/24/2018, [facility]): Age-appropriate stable and unremarkable head CT. -MRI/MRA(05/16/2016, [facility]): No acute intracranial findings. ?Normal morphology and signal intensity of the brain parenchyma. No large vessel occlusion, significant focal narrowing, or aneurysm on intracranial [id number] MRA. 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 -MRI brain (02/25/2015, [facility]): NO ACUTE INFARCT. NORMAL BRAIN PARENCHYMA. RECENT CT FINDINGS RESULT OF ARTIFACT. PERSISTENT TRIGEMINAL ARTERY. -MRI brain (09/06/2013, [facility]): No acute findings. ?Brain parenchyma shows normal signal and morphology for age. Incidental persistent trigeminal artery, connecting right ICA with basilar artery. ?This represents an arterial anatomic variant. IMPRESSION 52yo woman with complicated medical history including depression, anxiety, chronic pain, seizures since 1999, here with reports of new episodes of LOC since 10/2017, of unclear etiology. Upon review of her EMR, it is not clear to mean that episodes of LOC are new. She has had multiple EEGs over the years including video-EEG at in 2013 which captured episodes of unresponsiveness without EEG change. She apparently was not accepting of PNES diagnosis at that time. She receives her medical care from multiple hospital systems, which complicates the situation. PLAN 1. Prolonged outpatient EEG to evaluate for epileptiform discharges. 2. If outpatient EEG is unrevealing, will proceed to inpatient video-EEG for diagnosis. 3. Continue LCM, prescribed by Dr. Rae. 4. Return to clinic after EEG. She should continue to refrain from driving. The patient agreed with the plan as outlined above. Lilo Ortiz MD cc: Dr. Carlos Rae Referring Provider: SELF [[id number]] Allergies As of Date: 04/28/2018 Noted Allergy Reaction CELLACEFATE 01/07/2006 7 - Swelling DEPAKOTE (DIVALPROEX SODIUM) 01/07/2006 8 - GI Upset DILANTIN (PHENYTOIN SODIUM EXTEND*06/03/2015 8 - GI Upset FISH CONTAINING PRODUCTS 05/13/2015 16 - Unknown PENICILLIN G 01/07/2006 8 - GI Upset Comments: tolerates zosyn . sdm. 03/2007 TOLERATES KEFLEX 3-31-11 SHRIMP 05/13/2015 16 - Unknown SULFA (SULFONAMIDE ANTIBIOTICS) 05/17/2007 8 - GI Upset Comments: Gastritis TOPAMAX (TOPIRAMATE) 05/21/2009 1 - Mental Status Change HALDOL (HALOPERIDOL) 02/03/2008 1 - Mental Status Change 3 - Cough 8 - GI Upset 9 - Itching Date Reviewed: 04/28/2018 Reviewed by: Eri Cisneros Ma - Fully Assessed Reason for Visit: Seizures [97] Reason For Visit History Recorded Primary Visit Diagnosis:Convulsions, unspecified convulsion type (HCC) [R56.9] Order(s):EEG LONG [1683220] Order #: [id number] Prescriptions as of 04/28/2018 Sig: LACOSAMIDE 100 MG TABLET Take 1 tablet by mouth twice * GABAPENTIN 300 MG CAPSULE take 3 capsules by mouth thre* CLONAZEPAM 0.5 MG TABLET Take 1 tablet by mouth three * AZITHROMYCIN 250 MG TABLET Take 2 tablets first day then* OXYCODONE-ACETAMINOPHEN 5 MG-* 1 po q4h prn breakthrough anthony* DABIGATRAN ETEXILATE 150 MG C* Take 1 capsule by mouth twice* SPIRONOLACTONE 25 MG TABLET Take 1 tablet by mouth once d* VENLAFAXINE ER 150 MG CAPSULE* Take 2 capsules by mouth once* POTASSIUM CHLORIDE ER 20 MEQ * Take 1 tablet by mouth every * COMPOUNDED PRESCRIPTION Low Dose Naltrexone 2 mg cap* DICYCLOMINE 20 MG TABLET Take 1 tablet by mouth four t* OMEPRAZOLE 20 MG CAPSULE,VENESSA* Take 1 capsule by mouth once * FLUTICASONE 500 MCG-SALMETERO* Inhale 1 Puff as instructed t* LOPERAMIDE 2 MG CAPSULE Take 1 capsule by mouth as ne* CETIRIZINE 10 MG CAPSULE Take by mouth once daily. ERGOCALCIFEROL (VITAMIN D2) 5* Take 1 capsule by mouth every* Medication notes this encounter COMPOUNDED PRESCRIPTION >> Eri Cisneros Ma 04/28/2018 3:28 PM >> ERI CISNEROS MA TueApr 28, 2018 3:28 PM FLUTICASONE 500 MCG-SALMETEROL 50 MCG/DOSE BLISTR POWDR FOR INHALATION >> Eri Cisneros Ma 04/28/2018 3:28 PM >> ERI CISNEROS MA TueApr 28, 2018 3:28 PM Problem List As Of Date 04/28/2018 Noted Resolved Cellulitis and abscess of leg, except foot [L03*INVALID FOR*02/25/2017 Methicillin susceptible Staphylococcus aureus i*INVALID FOR*02/25/2017 Pseudomonas infection in conditions classified *INVALID FOR*02/25/2017 Edema [R60.9] INVALID FOR*08/31/2017 Reflex sympathetic dystrophy of lower limb [G90*INVALID FOR* Psoas muscle abscess (HCC) [K68.12] INVALID FOR*02/25/2017 More... Candidiasis of unspecified site [B37.9] INVALID FOR*08/31/2017 More... Other streptococcus infection in conditions cla*INVALID FOR*02/25/2017 More... Bacteremia [R78.81] INVALID FOR*02/25/2017 Other lymphedema [I89.0] INVALID FOR*02/25/2017 Chronic pain syndrome [G89.4] INVALID FOR* Opioid type dependence, continuous (HCC) [F11.2*INVALID FOR* TOBACCO USE DISORDER [F17.200] Other convulsions [R56.9] INVALID FOR*02/25/2017 Priority: Moderate Sleep Hypovent Oth Dis [G47.36] INVALID FOR* Priority: Mild HYPOPOTASSEMIA [E87.6] INVALID FOR*02/28/2009 Priority: Moderate VENA CAVA THROMBOSIS [I82.220] INVALID FOR* Anemia, unspecified [D64.9] INVALID FOR*10/31/2017 Embolism and thrombosis (HCC) [I74.9] INVALID FOR*02/25/2017 Priority: B More... Other Pulmonary Embolism and Infarction [I26.99]INVALID FOR* Encounter for Long-Term (Current) Use of Antico*INVALID FOR* More... Left leg pain [M79.605] INVALID FOR*02/25/2017 Muscle spasm [M62.838] INVALID FOR* Leg pain [M79.606] INVALID FOR*02/25/2017 Depression, reactive [F32.9] 02/25/2017 More... Iron defic anemia NEC INVALID FOR*10/31/2017 Agitation [R45.1] INVALID FOR*02/25/2017 Other chronic pain [G89.29] INVALID FOR*12/03/2017 Priority: F More... Altered mental status [R41.82] INVALID FOR*05/19/2016 Chemical dependency (HCC) [F19.20] INVALID FOR* SUMMARY INVALID FOR*02/25/2017 Priority: A More... Left arm weakness [R29.898] INVALID FOR* Priority: B More... Chest pain [R07.9] INVALID FOR*10/31/2017 Priority: A More... Cellulitis [L03.90] INVALID FOR*02/25/2017 Priority: D More... Depression [F32.9] INVALID FOR* Priority: D More... Lethargy [R53.83] INVALID FOR* More... Seizure disorder (HCC) [G40.909] INVALID FOR*11/12/2017 More... Low BP [I95.9] INVALID FOR*08/31/2017 More... DJD (degenerative joint disease), cervical [M47* Anxiety state, unspecified [F41.1] 04/22/2014 Pain [R52] INVALID FOR*08/31/2017 Priority: B More... Fever [R50.9] INVALID FOR*02/25/2017 Priority: C More... Delirium [R41.0] INVALID FOR*02/25/2017 Priority: A More... Hematemesis [K92.0] INVALID FOR*02/25/2017 Priority: C More... Emphysema of lung (HCC) [J43.9] INVALID FOR* Smoker [F17.200] INVALID FOR*02/25/2017 Chronic deep vein thrombosis of left femoral ve*INVALID FOR* Vitamin D deficiency [E55.9] INVALID FOR* Psychosis [F29] INVALID FOR* GERD (gastroesophageal reflux disease) [K21.9] INVALID FOR* Asthma [J45.909] INVALID FOR* Orthostatic hypotension [I95.1] INVALID FOR*08/31/2017 More... Psychiatric disorder [F99] INVALID FOR* More... DVT (deep venous thrombosis) (HCC) [I82.409] INVALID FOR*02/25/2017 [facility] current use of anticoagulant [Z79.01] INVALID FOR*02/25/2017 More... 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 Syncope [R55] INVALID FOR*08/31/2017 Intentional fentanyl overdose (HCC) [T40.4X2A] INVALID FOR*08/31/2017 Nausea [R11.0] INVALID FOR* Delusional disorder (HCC) [F22] INVALID FOR* More... 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 Follow-up and Disposition History Recorded Encounter Status:Closed by LILO ORTIZ MD on 05/01/18 PROGRESS Observed: 04/06/2018 Status: COMPLETED Source: [facility] 1:14 PM [facility] [place] REPOSITORY HNO ID: [id number] Author: Ryan Castano Service: (none) Author Type: Physician Type: Progress Notes Filed: 04/07/2018 12:47 PM Note Text: Edgardo Denson is a 52 year old female who presents to followup for medication refills, to discuss her episodes of recurrent syncope and with a cold which has moved into her chest accompanied by her daughter. 03/20/2018 1 02/17/2018 CLONAZEPAM 0.5 MG TABLET 90 30 AL CAD [id number] RIT([id number]) 1 3.00 LME Medicare [place] 03/06/2018 1 03/01/2018 OXYCODONE-ACETAMINOPHEN 5-325 150 30 AL CAD [id number] RIT([id number]) 0 37.50 MME [place] At the last visit with me on 8-13 the AANDP was as follows: 1. Syncope, unspecified syncope type - ICD9: 780.2, ICD10: R55 She does have a history of nonepileptic seizures. She seems to have regained her baseline after a period of drowsiness and somewhat slurred speech. The squad was immediately called when she was found and are transporting her to the emergency department. ? 2. Chronic pain If she truly has been off her oxycodone for several days, please try not to reinitiated. We did wean her off fentanyl patches successfully. ? Ryan Castano MD ? Addendum: discussed w attending in [facility] ED Dr. Tan who will admit She was admitted to [facility] and released after one day. Lesvia said that she was keeping her away from her narcotics for 3 days but Edgardo said she was taking them regardless. Lesvia said that there were no narcotics left in the bottle but Edgardo said she had 10 left and then said she didn't. She is very resentful about the fact that her problem list says that she has used illicit drugs and has polysubstance abuse. I have reviewed her urine drug screens and there was one positive PCP; there are reports in the literature of false positive PCP in patients on venlafaxine. I removed these entries from her problem list. She does not know what is causing her syncopal episodes. She has been seeing Dr. Rae on a regular basis. He is treating her with gabapentin and lacosamide; his history for her most recent visit was psychosis. She has been seeing him for a long time and likes him because he believes her. She has had an upper respiratory infection that is gone into her chest. She uses her Advair on a when necessary basis from 0-3 times daily. She continues to smoke and believes that nicotine dilates her bronchioles. She states that she is wheezing but her daughter denies this. She feels that she needs an antibiotic and that if she had had one a week ago, the infection would not of gone into her chest. She has multiple allergies including penicillin and sulfa and tetracyclines. She is requesting azithromycin. She did not complain of pain today but needs a refill of her narcotics. She persistently insists that I need to fill out a C9 form for the [place] [employer] where she cannot get her tooth pulled because she does not have dental insurance. She says that the dentist needs an okay from me medically but that she needs a C9 form so it will be paid. I did not get a clear picture of how her dental caries related to a [facility] claim. 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 Other Pulmonary Embolism and Infarction Longterm (Current) Use of Anticoagulants Muscle Spasm Chemical dependency ([facility]) Left Arm Weakness Depression Lethargy Djd (Degenerative Joint Disease), Cervical Emphysema of Lung (Hcc) Chronic Deep Vein Thrombosis of Left Femoral Vein ([facility]) Vitamin D Deficiency Psychosis ([facility]) Gerd (Gastroesophageal Reflux Disease) Asthma Psychiatric Disorder Tubulovillous Adenoma of Colon Nausea Delusional Disorder ([facility]) Orthostasis Illicit Drug Use Phencyclidine (Pcp) Use Disorder, Moderate, Dependence ([facility]) Psychogenic Nonepileptic Seizure Opacity of Lung On Imaging Study Current Outpatient Prescriptions on File Prior to Visit: clonazePAM (KLONOPIN) 0.5 mg tablet Take 1 tablet by mouth three times daily as needed for up to 30 days. oxyCODONE-acetaminophen (PERCOCET) 5-325 mg tablet 1 po q4h prn breakthrough pain (MAXIMUM 5 pills/day)Earliest Fill Date: 03/06/18 dabigatran etexilate (PRADAXA) 150 mg cap Take 1 capsule by mouth twice daily. spironolactone (ALDACTONE) 25 mg tablet Take 1 tablet by mouth once daily as needed. Takes as needed venlafaxine ER (EFFEXOR XR) 150 mg 24 hr capsule Take 2 capsules by mouth once daily. promethazine (PHENERGAN) 25 mg tablet Take 1 tablet by mouth every 8 hours as needed. potassium chloride 20 mEq TbER Take 1 tablet by mouth every Tuesday,Tuesday,Tuesday. gabapentin (NEURONTIN) 300 mg capsule take 3 capsules by mouth three times a day COMPOUNDED PRESCRIPTION Low Dose Naltrexone2 mg capsule (do not use calcium filler)Take one capsule by mouth at 9:00 PM every night baclofen (LIORESAL) 10 mg tablet Take 0.5-1 tablets by mouth once daily. lacosamide (VIMPAT) 100 mg tab Take 1 tablet by mouth twice daily for 30 days. dabigatran etexilate (PRADAXA) 150 mg cap Take 1 capsule by mouth twice daily. dicyclomine (BENTYL) 20 mg tablet Take 1 tablet by mouth four times daily. omeprazole (PRILOSEC) 20 mg capsule Take 1 capsule by mouth once daily. fluticasone-salmeterol (ADVAIR DISKUS) 500-50 mcg/dose dsdv Inhale 1 Puff as instructed twice daily. RINSE AND GARGLE MOUTH WITH WATER AFTER EACH USE. loperamide (IMODIUM) 2 mg cap(s) Take 1 capsule by mouth as needed for Diarrhea. Cetirizine (ZYRTEC) 10 mg cap Take by mouth once daily. ergocalciferol, vitamin D2, (DRISDOL) 50,000 unit capsule Take 1 capsule by mouth every Tuesday. Indications: VITAMIN D DEFICIENCY No current facility-administered medications on file prior to visit. Physical Examination: BP 94/77 Pulse 95 Temp 37.1 ?C (98.7 ?F) (Oral) Wt 60.8 kg (134 lb) BMI 23.00 kg/m? General appearance: Well appearing, alert, in no acute distress. She is not coughing and she is able to raise her voice and speak quickly without dyspnea; there is no audible wheezing Ears: External ears normal. Right canal clear and TM normal, Left canal clear and TM normal Oropharynx: Lips, mucosa, and tongue normal, she has an eroded carious right upper tooth, oropharynx normal Neck: No cervical adenopathy Lung: Clear to percussion and auscultation, prolonged expiratory phase Heart: Regular rate and rhythm Mental Status:Alert, calm to challenging, raises her voice, persistent and perseverating, good eye contact, well groomed, she is wearing eye makeup which I think is a first for our visits, and casually dressed ASSESSMENT/PLAN: 1. Acute bronchitis with chronic obstructive pulmonary disease (COPD) ([facility]) - ICD9: 491.22, ICD10: J44.0, J20.9 (primary diagnosis) I have advised her that her smoking may be responsible for her lung symptoms, but she denies this. - AZITHROMYCIN 250 MG TABLET 2. Other chronic pain - ICD9: 338.29, ICD10: G89.29 I have given her a 2 month prescription for oxycodone at the current dosage. My plan is to taper her down to 4 doses daily initially; I anticipate that this will be a jocelynn transition. I do plan to continue tapering her medications slowly. She had a negative urine pain panel in November; this will need to be repeated. - OXYCODONE-ACETAMINOPHEN 5 MG-325 MG TABLET - OXYCODONE-ACETAMINOPHEN 5 MG-325 MG TABLET - OXYCODONE-ACETAMINOPHEN 5 MG-325 MG TABLET 3. 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 4. Dental caries I told her that I would not complete a C9 for this diagnosis. Return in about 2 months (around 06/06/2018) for follow Christine before Jun 05. Ryan Castano MD CNOV Observed: 04/06/2018 Status: COMPLETED Source: [place] 1:00 PM [facility] REPOSITORY Office Visit (FAMPBD) JARETT,EDGARDO Foss ([id number]) 1965 F Date Time Provider Department 04/06/18 1:00 PM RYAN CASTANOPBD During your visit today, we recorded the following information about you: Temperature Pulse Blood pressure Weight 98.7 degrees 95/minute 94/77 60.8 kg Ryan Castano MD 04/07/2018 12:47 PM Signed Edgardoericka Denson is a 52 year old female who presents to followup for medication refills, to discuss her episodes of recurrent syncope and with a cold which has moved into her chest accompanied by her daughter. 03/20/2018 1 02/17/2018 CLONAZEPAM 0.5 MG TABLET 90 30 AL CAD [id number] RIT([id number]) 1 3.00 LME Medicare [place] 03/06/2018 1 03/01/2018 OXYCODONE-ACETAMINOPHEN 5-325 150 30 AL CAD [id number] RIT([id number]) 0 37.50 MME Medicare [place] At the last visit with me on 03-27 the AANDP was as follows: 1. Syncope, unspecified syncope type - ICD9: 780.2, ICD10: R55 She does have a history of nonepileptic seizures. She seems to have regained her baseline after a period of drowsiness and somewhat slurred speech. The squad was immediately called when she was found and are transporting her to the emergency department. ? 2. Chronic pain If she truly has been off her oxycodone for several days, please try not to reinitiated. We did wean her off fentanyl patches successfully. ? Ryan Castano MD ? Addendum: discussed w attending in [facility] ED Dr. Tan who will admit She was admitted to [facility] and released after one day. Lesvia said that she was keeping her away from her narcotics for 3 days but Edgardo said she was taking them regardless. Lesvia said that there were no narcotics left in the bottle but Edgardo said she had 10 left and then said she didn't. She is very resentful about the fact that her problem list says that she has used illicit drugs and has polysubstance abuse. I have reviewed her urine drug screens and there was one positive PCP; there are reports in the literature of false positive PCP in patients on venlafaxine. I removed these entries from her problem list. She does not know what is causing her syncopal episodes. She has been seeing Dr. Rae on a regular basis. He is treating her with gabapentin and lacosamide; his history for her most recent visit was psychosis. She has been seeing him for a long time and likes him because he believes her. She has had an upper respiratory infection that is gone into her chest. She uses her Advair on a when necessary basis from 0-3 times daily. She continues to smoke and believes that nicotine dilates her bronchioles. She states that she is wheezing but her daughter denies this. She feels that she needs an antibiotic and that if she had had one a week ago, the infection would not of gone into her chest. She has multiple allergies including penicillin and sulfa and tetracyclines. She is requesting azithromycin. She did not complain of pain today but needs a refill of her narcotics. She persistently insists that I need to fill out a C9 form for the [place] [employer] where she cannot get her tooth pulled because she does not have dental insurance. She says that the dentist needs an okay from me medically but that she needs a C9 form so it will be paid. I did not get a clear picture of how her dental caries related to a [facility] claim. 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 Muscle Spasm Chemical dependency (HCC) Left Arm Weakness Depression Lethargy Djd (Degenerative Joint Disease), Cervical Emphysema of Lung (Hcc) Chronic Deep Vein Thrombosis of Left Femoral Vein (Hcc) Vitamin D Deficiency Psychosis (Hcc) Gerd (Gastroesophageal Reflux Disease) Asthma Psychiatric Disorder Tubulovillous Adenoma of Colon Nausea Delusional Disorder (Hcc) Orthostasis Illicit Drug Use Phencyclidine (Pcp) Use Disorder, Moderate, Dependence (Hcc) Psychogenic Nonepileptic Seizure Opacity of Lung On Imaging Study Current Outpatient Prescriptions on File Prior to Visit: clonazePAM (KLONOPIN) 0.5 mg tablet Take 1 tablet by mouth three times daily as needed for up to 30 days. oxyCODONE-acetaminophen (PERCOCET) 5-325 mg tablet 1 po q4h prn breakthrough pain (MAXIMUM 5 pills/day)Earliest Fill Date: 03/06/18 dabigatran etexilate (PRADAXA) 150 mg cap Take 1 capsule by mouth twice daily. spironolactone (ALDACTONE) 25 mg tablet Take 1 tablet by mouth once daily as needed. Takes as needed venlafaxine ER (EFFEXOR XR) 150 mg 24 hr capsule Take 2 capsules by mouth once daily. promethazine (PHENERGAN) 25 mg tablet Take 1 tablet by mouth every 8 hours as needed. potassium chloride 20 mEq TbER Take 1 tablet by mouth every Tuesday,Tuesday,Tuesday. gabapentin (NEURONTIN) 300 mg capsule take 3 capsules by mouth three times a day COMPOUNDED PRESCRIPTION Low Dose Naltrexone2 mg capsule (do not use calcium filler)Take one capsule by mouth at 9:00 PM every night baclofen (LIORESAL) 10 mg tablet Take 0.5-1 tablets by mouth once daily. lacosamide (VIMPAT) 100 mg tab Take 1 tablet by mouth twice daily for 30 days. dabigatran etexilate (PRADAXA) 150 mg cap Take 1 capsule by mouth twice daily. dicyclomine (BENTYL) 20 mg tablet Take 1 tablet by mouth four times daily. omeprazole (PRILOSEC) 20 mg capsule Take 1 capsule by mouth once daily. fluticasone-salmeterol (ADVAIR DISKUS) 500-50 mcg/dose dsdv Inhale 1 Puff as instructed twice daily. RINSE AND GARGLE MOUTH WITH WATER AFTER EACH USE. loperamide (IMODIUM) 2 mg cap(s) Take 1 capsule by mouth as needed for Diarrhea. Cetirizine (ZYRTEC) 10 mg cap Take by mouth once daily. ergocalciferol, vitamin D2, (DRISDOL) 50,000 unit capsule Take 1 capsule by mouth every Tuesday. Indications: VITAMIN D DEFICIENCY No current facility-administered medications on file prior to visit. Physical Examination: BP 94/77 Pulse 95 Temp 37.1 ?C (98.7 ?F) (Oral) Wt 60.8 kg (134 lb) BMI 23.00 kg/m? General appearance: Well appearing, alert, in no acute distress. She is not coughing and she is able to raise her voice and speak quickly without dyspnea; there is no audible wheezing Ears: External ears normal. Right canal clear and TM normal, Left canal clear and TM normal Oropharynx: Lips, mucosa, and tongue normal, she has an eroded carious right upper tooth, oropharynx normal Neck: No cervical adenopathy Lung: Clear to percussion and auscultation, prolonged expiratory phase Heart: Regular rate and rhythm Mental Status:Alert, calm to challenging, raises her voice, persistent and perseverating, good eye contact, well groomed, she is wearing eye makeup which I think is a first for our visits, and casually dressed ASSESSMENT/PLAN: 1. Acute bronchitis with chronic obstructive pulmonary disease (COPD) ([facility]) - ICD9: 491.22, ICD10: J44.0, J20.9 (primary diagnosis) I have advised her that her smoking may be responsible for her lung symptoms, but she denies this. - AZITHROMYCIN 250 MG TABLET 2. Other chronic pain - ICD9: 338.29, ICD10: G89.29 I have given her a 2 month prescription for oxycodone at the current dosage. My plan is to taper her down to 4 doses daily initially; I anticipate that this will be a jocelynn transition. I do plan to continue tapering her medications slowly. She had a negative urine pain panel in November; this will need to be repeated. - OXYCODONE-ACETAMINOPHEN 5 MG-325 MG TABLET - OXYCODONE-ACETAMINOPHEN 5 MG-325 MG TABLET - OXYCODONE-ACETAMINOPHEN 5 MG-325 MG TABLET 3. 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 4. Dental caries I told her that I would not complete a C9 for this diagnosis. Return in about 2 months (around 06/06/2018) for follow Christine before Jun 05. Ryan Castano MD Referring Provider: SELF [[id number]] Allergies As of Date: 04/06/2018 Noted Allergy Reaction CELLACEFATE 01/07/2006 7 - Swelling DEPAKOTE (DIVALPROEX SODIUM) 01/07/2006 8 - GI Upset DILANTIN (PHENYTOIN SODIUM EXTEND*06/03/2015 8 - GI Upset FISH CONTAINING PRODUCTS 05/13/2015 16 - Unknown PENICILLIN G 01/07/2006 8 - GI Upset Comments: tolerates zosyn . sdm. 03/2007 TOLERATES KEFLEX 3-31-11 SHRIMP 05/13/2015 16 - Unknown SULFA (SULFONAMIDE ANTIBIOTICS) 05/17/2007 8 - GI Upset Comments: Gastritis TOPAMAX (TOPIRAMATE) 05/21/2009 1 - Mental Status Change HALDOL (HALOPERIDOL) 02/03/2008 1 - Mental Status Change 3 - Cough 8 - GI Upset 9 - Itching Date Reviewed: 04/06/2018 Reviewed by: Dolores Rothman - Fully Assessed Reason for Visit: Recheck [92] Primary Visit Diagnosis:Acute bronchitis with chronic obstructive pulmonary disease (COPD) ([facility]) [J44.0, J20.9] Other Visit Diagnoses:Other chronic pain [G89.29] Psychogenic syncope [F48.8] Dental caries [K02.9] Order(s):azithromycin (ZITHROMAX Z-JEREMY) 250 mg tabletTake 2 tablets first day then one tablet daily for next four days.Disp: 1 PackageRfl: 0 [START ON 05/06/2018] oxyCODONE-acetaminophen (PERCOCET) 5-325 mg tablet1 po q4h prn breakthrough pain (MAXIMUM 5 pills/day)Disp: 150 tabletRfl: 0 Prescriptions as of 04/06/2018 Sig: CLONAZEPAM 0.5 MG TABLET Take 1 tablet by mouth three * DABIGATRAN ETEXILATE 150 MG C* Take 1 capsule by mouth twice* SPIRONOLACTONE 25 MG TABLET Take 1 tablet by mouth once d* VENLAFAXINE ER 150 MG CAPSULE* Take 2 capsules by mouth once* POTASSIUM CHLORIDE ER 20 MEQ * Take 1 tablet by mouth every * GABAPENTIN 300 MG CAPSULE take 3 capsules by mouth thre* COMPOUNDED PRESCRIPTION Low Dose Naltrexone 2 mg cap* LACOSAMIDE 100 MG TABLET Take 1 tablet by mouth twice * DICYCLOMINE 20 MG TABLET Take 1 tablet by mouth four t* OMEPRAZOLE 20 MG CAPSULE,VENESSA* Take 1 capsule by mouth once * FLUTICASONE 500 MCG-SALMETERO* Inhale 1 Puff as instructed t* LOPERAMIDE 2 MG CAPSULE Take 1 capsule by mouth as ne* CETIRIZINE 10 MG CAPSULE Take by mouth once daily. ERGOCALCIFEROL (VITAMIN D2) 5* Take 1 capsule by mouth every* AZITHROMYCIN 250 MG TABLET Take 2 tablets first day then* OXYCODONE-ACETAMINOPHEN 5 MG-* 1 po q4h prn breakthrough anthony* Problem List As Of Date 04/06/2018 Noted Resolved Cellulitis and abscess of leg, except foot [L03*INVALID FOR*02/25/2017 Methicillin susceptible Staphylococcus aureus i*INVALID FOR*02/25/2017 Pseudomonas infection in conditions classified *INVALID FOR*02/25/2017 Edema [R60.9] INVALID FOR*08/31/2017 Reflex sympathetic dystrophy of lower limb [G90*INVALID FOR* Psoas muscle abscess (HCC) [K68.12] INVALID FOR*02/25/2017 More... Candidiasis of unspecified site [B37.9] INVALID FOR*08/31/2017 More... Other streptococcus infection in conditions cla*INVALID FOR*02/25/2017 More... Bacteremia [R78.81] INVALID FOR*02/25/2017 Other lymphedema [I89.0] INVALID FOR*02/25/2017 Chronic pain syndrome [G89.4] INVALID FOR* Opioid type dependence, continuous (HCC) [F11.2*INVALID FOR* TOBACCO USE DISORDER [F17.200] Other convulsions [R56.9] INVALID FOR*02/25/2017 Priority: Moderate Sleep Hypovent Oth Dis [G47.36] INVALID FOR* Priority: Mild HYPOPOTASSEMIA [E87.6] INVALID FOR*02/28/2009 Priority: Moderate VENA CAVA THROMBOSIS [I82.220] INVALID FOR* Anemia, unspecified [D64.9] INVALID FOR*10/31/2017 Embolism and thrombosis (HCC) [I74.9] INVALID FOR*02/25/2017 Priority: B More... Other Pulmonary Embolism and Infarction [I26.99]INVALID FOR* Encounter for Long-Term (Current) Use of Antico*INVALID FOR* More... Left leg pain [M79.605] INVALID FOR*02/25/2017 Muscle spasm [M62.838] INVALID FOR* Leg pain [M79.606] INVALID FOR*02/25/2017 Depression, reactive [F32.9] 02/25/2017 More... Iron defic anemia NEC INVALID FOR*10/31/2017 Agitation [R45.1] INVALID FOR*02/25/2017 Other chronic pain [G89.29] INVALID FOR*12/03/2017 Priority: F More... Altered mental status [R41.82] INVALID FOR*05/19/2016 Chemical dependency (HCC) [F19.20] INVALID FOR* SUMMARY INVALID FOR*02/25/2017 Priority: A More... Left arm weakness [R29.898] INVALID FOR* Priority: B More... Chest pain [R07.9] INVALID FOR*10/31/2017 Priority: A More... Cellulitis [L03.90] INVALID FOR*02/25/2017 Priority: D More... Depression [F32.9] INVALID FOR* Priority: D More... Lethargy [R53.83] INVALID FOR* More... Seizure disorder (HCC) [G40.909] INVALID FOR*11/12/2017 More... Low BP [I95.9] INVALID FOR*08/31/2017 More... DJD (degenerative joint disease), cervical [M50* Anxiety state, unspecified [F41.1] 04/22/2014 Pain [R52] INVALID FOR*08/31/2017 Priority: B More... Fever [R50.9] INVALID FOR*02/25/2017 Priority: C More... Delirium [R41.0] INVALID FOR*02/25/2017 Priority: A More... Hematemesis [K92.0] INVALID FOR*02/25/2017 Priority: C More... Emphysema of lung (HCC) [J43.9] INVALID FOR* Smoker [F17.200] INVALID FOR*02/25/2017 Chronic deep vein thrombosis of left femoral ve*INVALID FOR* Vitamin D deficiency [E55.9] INVALID FOR* Psychosis [F29] INVALID FOR* GERD (gastroesophageal reflux disease) [K21.9] INVALID FOR* Asthma [J45.909] INVALID FOR* Orthostatic hypotension [I95.1] INVALID FOR*08/31/2017 More... Psychiatric disorder [F99] INVALID FOR* More... DVT (deep venous thrombosis) (HCC) [I82.409] INVALID FOR*02/25/2017 [facility] current use of anticoagulant [Z79.01] INVALID FOR*02/25/2017 More... 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 Syncope [R55] INVALID FOR*08/31/2017 Intentional fentanyl overdose (HCC) [T40.4X2A] INVALID FOR*08/31/2017 Nausea [R11.0] INVALID FOR* Delusional disorder (HCC) [F22] INVALID FOR* More... 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 Prescriptions ordered this encounter Disp Refills Start End OXYCODONE-ACETAMINOPHEN 5 MG-325 MG * 150 * 0 04/06/2018 04/06/2018 Class: Print RX Si po q4h prn breakthrough pain (MAXIMUM 5 pills/day) AZITHROMYCIN 250 MG TABLET 1 Pa* 0 04/06/2018 Sig: Take 2 tablets first day then one tablet daily for next four days. OXYCODONE-ACETAMINOPHEN 5 MG-325 MG * 150 * 0 05/06/2018 04/06/2018 Class: Print RX Si po q4h prn breakthrough pain (MAXIMUM 5 pills/day) Earliest Fill Date: 05/06/18 OXYCODONE-ACETAMINOPHEN 5 MG-325 MG * 150 * 0 05/06/2018 06/05/2018 Class: Print RX Si po q4h prn breakthrough pain (MAXIMUM 5 pills/day) Medications Discontinued During This Encounter baclofen (LIORESAL) 10 mg tablet 45 t* 2 12/21/2017 04/06/2018 Route: ORAL Sig: Take 0.5-1 tablets by mouth once daily. Disc: Reason for discontinue is not on file. dabigatran etexilate (PRADAXA) 150 m* 60 c* 0 11/03/2017 04/06/2018 Route: ORAL Sig: Take 1 capsule by mouth twice daily. Disc: Reason for discontinue is not on file. promethazine (PHENERGAN) 25 mg tablet 10 t* 0 01/31/2018 04/06/2018 Route: ORAL Sig: Take 1 tablet by mouth every 8 hours as needed. Disc: Reason for discontinue is not on file. oxyCODONE-acetaminophen (PERCOCET) 5* 150 * 0 03/06/2018 04/06/2018 Class: Print RX Si po q4h prn breakthrough pain (MAXIMUM 5 pills/day) Earliest Fill Date: 03/06/18 Disc: Reason for discontinue is not on file. oxyCODONE-acetaminophen (PERCOCET) 5* 150 * 0 04/06/2018 04/06/2018 Class: Print RX Si po q4h prn breakthrough pain (MAXIMUM 5 pills/day) Disc: Reason for discontinue is not on file. oxyCODONE-acetaminophen (PERCOCET) 5* 150 * 0 05/06/2018 04/06/2018 Class: Print RX Si po q4h prn breakthrough pain (MAXIMUM 5 pills/day) Earliest Fill Date: 05/06/18 Disc: Reason for discontinue is not on file. Disposition: Return in about 2 months (around 06/06/2018) for nathan Castano before Jun 05. Follow-up and Disposition History Recorded Encounter Status:Closed by RYAN CASTANO MD on 04/07/18 DISCHARGE SUMMARY Observed: 03/30/2018 Status: COMPLETED Source: [place] 11:50 PM [facility] REPOSITORY Send Summary: Discharge Summary Providers: Provider RoleProvider Name ? ReferringGreyson Bertrand ? AttendingGreyson Bertrand ? PrimaryPodlDarinel Note Recipients: Greyson Bertrand MD Podl, Darinel Jesus, - [phone] [left CC, unable to locate] Discharge: Summary: Admission Date: .27-Mar-2018 13:04:00 Discharge Date: 28-Mar-2018 Attending Physician at Discharge: Greyson Bertrand Admission Reason: syncope(1) Final Discharge Diagnoses: Possible vasovagal syncope, chronic pain syndrome, history of seizures Procedures: None Condition at Discharge: Satisfactory Disposition at Discharge: .Home Vital Signs: Pulse 76, respirations 16, blood pressure 120/80 Physical Exam: Please refer to detailed history and physical done today Hospital Course: Please refer to assessment and plan as mentioned in for history and physical done today March 28, 2018. Immunizations: Immunizations: 15-Oct-2013 .Influenza- Influenza Virus: Immunizations, 15-Oct-2013 .Pneumonia- Pneumococcal polysaccharide vaccine-adult: Immunizations, 06-Apr-2013 Discharge Information: and Continuing Care: Discharge Instructions: Activity: activity as tolerated. Nutrition/Diet: resume normal diet Follow Up Appointments: Follow-Up Appointment 01: Physician/Dept/Service: Dr. Ryan Castano (Primary Care Physician) Reason for Referral: hospital follow up ,general health maintenance and medication refills Call to Schedule in: 1 week Follow-Up Appointment 02: Physician/Dept/Service: Neurologist Reason for Referral: hospital follow up ,general health maintenance and medication refills Call to Schedule in: 1 week Discharge Medications: Home Medication loratadine 10 mg oral tablet - 1 tab(s) orally once a day PriLOSEC OTC 20 mg oral delayed release capsule - 1 cap(s) orally once a day Effexor - 300 milligram(s) orally once a day Pradaxa 150 mg oral capsule - 1 cap(s) orally 2 times a day gabapentin 300 mg oral capsule - 3 cap(s) orally 3 times a day Vimpat 100 mg oral tablet - 100 milligram(s) orally once a day PRN Medication Benadryl 25 mg oral tablet - 25 milligram(s) orally 3 times a day, As Needed potassium chloride 20 mEq oral tablet, extended release - 1 tab(s) orally , As Needed Aldactone 25 mg oral tablet - orally , As Needed KlonoPIN 0.5 mg oral tablet - 0.5 milligram(s) orally every 8 hours, As Needed - for agitation Zantac 150 oral tablet - 1 tab(s) orally 2 times a day, As Needed Lomotil 2.5 mg-0.025 mg oral tablet - 2 tab(s) orally 4 times a day, As Needed Lab Results - Pending: None Radiology Results - Pending: None Electronic Signatures: Greyson Bertrand) (Signed 30-Mar-2018 23:52) Authored: Send Summary, Summary Content, Immunizations, Ongoing Care,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 1:[address] HEAD WO CONTRAST Observed: 03/27/2018 Status: F Source: [place] 7:43 PM [facility] REPOSITORY Patient Name: EDGARDO DENSON STUDY: CT HEAD WO CONTRAST; 03/27/2018 7:43 pm INDICATION: Signs/Symptoms: iraheta, syncope. COMPARISON: 12/26/2017 ACCESSION NUMBER(S): [id number] ORDERING CLINICIAN: CISCO TAN TECHNIQUE: Multiple axial CT images of the brain are obtained without use of intravenous contrast. FINDINGS: INTRACRANIAL: Brain Parenchyma: Normal rodriguez-white matter differentiation. No mass effect or midline shift. Hemorrhage: None. Ventricles and Sulci: Normal size and configuration. EXTRACRANIAL: Soft Tissues: Within normal limits. Extracranial Vessels: No calcification. Paranasal Sinuses/Mastoids: Imaged portion is clear. Calvarium: No destructive lesion or acute fracture. IMPRESSION: No acute intracranial hemorrhage or mass effect. Electronically signed by: KAMALA KEEN MD CT ABDOMEN AND PELVIS Observed: 03/27/2018 Status: F Source: [place] WO CONTRAST 7:43 PM HOSPITALS REPOSITORY Patient Name: EDGARDO DENSON STUDY: CT ABDOMEN AND PELVIS WO CONTRAST; 03/27/2018 7:43 pm INDICATION: Signs/Symptoms: R flank pain. COMPARISON: 12/22/2017 ACCESSION NUMBER(S): [id number] ORDERING CLINICIAN: CISCO TAN TECHNIQUE: CT of the abdomen and pelvis was performed without intravenous contrast. Multiplanar images are reformatted and submitted for assessment. FINDINGS: LOWER CHEST: Centrilobular emphysema involves the imaged bilateral lower lungs. Multifocal bilateral linear atelectasis or scarring. ABDOMEN: LIVER: Within normal limits. BILE DUCTS: Normal caliber. GALLBLADDER: Status post cholecystectomy. PANCREAS: Within normal limits. SPLEEN: Within normal limits. ADRENAL GLANDS: Within normal limits. KIDNEYS AND URETERS: Within normal limits. PELVIS: BLADDER: Within normal limits. REPRODUCTIVE ORGANS: No pelvic masses. VESSELS: There is an infrarenal IVC filter. There is mild atherosclerotic calcification throughout a normal caliber abdominal aorta. BOWEL: The large and small bowel loops are normal caliber. No enlarged mesenteric lymph nodes. Normal appendix is noted in the left hemiabdomen. The ileocecal junction is noted in the left hemiabdomen today. PERITONEUM AND RETROPERITONEUM: No ascites or loculated/drainable fluid collection. No pneumoperitoneum. No lymphadenopathy. BONE AND ABDOMINAL WALL: There is anterior abdominal wall scarring. Degenerative endplate changes throughout the spine. No destructive bony lesion or acute fracture. IMPRESSION: No acute intra-abdominal or pelvic pathology is demonstrated. Electronically signed by: KAMALA KEEN MD EMR ADDON Collected: 03/27/2018 Status: F Source: [place] 6:23 PM [facility] REPOSITORY TYPE CODE TESTS RESULT OUT OF REFERENCE UNITS RANGE LAB EMRAC(LOIN C) ADDON CONFIRMATION REQUEST REC'D Performed By: #### EMRAD #### [facility] [address] [id number] URINALYSIS Collected: 03/27/2018 Status: F Source: [place] 5:02 PM [facility] REPOSITORY TYPE CODE TESTS RESULT OUT OF REFERENCE UNITS RANGE LAB COLU(LOINC STRAW,YELLOW ) COLOR STRAW LAB APPRU(LOIN CLEAR C) APPEARANCE CLEAR LAB SPGRU(LOIN 1.005 - 1.035 C) SPECIFIC GRAVITY 1.009 LAB CHARLINE(LOINC) 5.0 - 8.0 pH 6.0 LAB PROTU(LOIN NEGATIVE mg/dL C) PROTEIN NEGATIVE LAB GLUCU(LOIN NEGATIVE mg/dL C) GLUCOSE NEGATIVE LAB BLDU(LOINC NEGATIVE ) BLOOD NEGATIVE LAB KETU(LOINC NEGATIVE mg/dL ) KETONES NEGATIVE LAB BILIU(LOIN NEGATIVE C) BILIRUBIN NEGATIVE LAB UROU2(LOIN 0.0 - 1.9 mg/dL C) UROBILINOGEN <2.0 LAB NITRU(LOIN NEGATIVE C) NITRITE NEGATIVE LAB LEUKU(LOIN NEGATIVE C) LEUKOCYTE ESTERASE NEGATIVE Performed By: #### UA #### [facility] [address] [place] [address] TROPONIN I Collected: 03/27/2018 Status: F Source: [place] 5:[address] [place] [address] REPOSITORY TYPE CODE TESTS RESULT OUT OF REFERENCE UNITS RANGE LAB TROP2(LOINC 0.00 - 0.03 ng/mL ) TROPONIN I <0.02 Result Comment: LESS THAN 0.04 NG/ML: NEGATIVE REPEAT TESTING IN FOUR TO SIX HOURS IF CLINICALLY INDICATED. 0.04 - 0.5 NG/ML: CONSISTENT WITH POSSIBLE CARDIAC DAMAGE AND POSSIBLE INCREASED CLINICAL RISK. SERIAL MEASUREMENTS MAY HELP ASSESS EXTENT OF MYOCARDIAL DAMAGE. >0.5 NG/ML: CONSISTENT WITH CARDIAC DAMAGE, INCREASED CLINICAL RISK AND MYOCARDIAL INFARCTION. SERIAL MEASUREMENTS MAY HELP ASSESS EXTENT OF MYOCARDIAL DAMAGE. . Note: Troponin I testing is performed using different testing methodology at [facility] than at other [facility]. Direct result comparisons should only be made within the same method. Performed By: #### TROP2 #### [facility] [address] [place] [address] DRUG SCREEN,URINE Collected: 03/27/2018 Status: F Source: [place] [id number] [place] [address] REPOSITORY TYPE CODE TESTS RESULT OUT OF REFERENCE UNITS RANGE LAB DRCOM(LOINC ) DRUG SCREEN SEE BELOW COMMENT Result Comment: Drug screen results are presumptive and should not be used to assess compliance with prescribed medication. Contact the performing [facility] laboratory to add-on definitive confirmatory testing if clinically indicated. . Toxicology screening results are reported qualitatively. The concentration must be greater than or equal to the cutoff to be reported as positive. The concentration at which the screening test can detect an individual drug or metabolite varies. The absence of expected drug(s) and/or drug metabolite(s) may indicate non-compliance, inappropriate timing of specimen collection relative to drug administration, poor drug absorption, diluted/adulterated urine, or limitations of testing. For medical purposes only; not valid for forensic use. . Interpretive questions should be directed to the laboratory medical directors. LAB AMPH(LOINC) NEGATIVE AMPHETAMINE PRESUMPTIVE SCREEN,U NEGATIVE Result Comment: CUTOFF LEVEL: 500 NG/ML Cross-reactivity has been reported with high concentrations of the following drugs: buproprion, chloroquine, chlorpromazine, ephedrine, mephentermine, fenfluramine, phentermine, phenylpropanolamine, pseudoephedrine, and propranolol. LAB WU(LOINC) NEGATIVE BARBITURATES PRESUMPTIVE SCREEN,U NEGATIVE Result Comment: CUTOFF LEVEL: 200 NG/ML LAB BENZO(LOINC) NEGATIVE BENZODIAZEPINES SCREEN,U PRESUMPTIVE NEGATIVE Result Comment: CUTOFF LEVEL: 200 NG/ML LAB MARIANA(LOINC) NEGATIVE CANNABINOIDS PRESUMPTIVE SCREEN,U NEGATIVE Result Comment: CUTOFF LEVEL: 50 NG/ML LAB COCAI(LOINC) NEGATIVE COCAINE PRESUMPTIVE METABOLITE NEGATIVE SCREEN,U Result Comment: CUTOFF LEVEL: 150 NG/ML LAB METHD(LOINC) NEGATIVE PRESUMPTIVE METHADONE NEGATIVE SCREEN,U Result Comment: CUTOFF LEVEL: 150 NG/ML The metabolite K-iqvhd-vqhznettnkrjoa (LAAM) is not detected by this method in concentrations that would be found in the urine of patients on LAAM therapy. LAB OPIAT(LOINC) NEGATIVE PRESUMPTIVE OPIATES NEGATIVE SCREEN,U Result Comment: CUTOFF LEVEL: 300 NG/ML The opiate screen does not detect fentanyl, meperidine, or tramadol. Oxycodone is not consistently detected (refer to Oxycodone Screen, Urine result). LAB OXYS2(LOINC) NEGATIVE PRESUMPTIVE OXYCODONE NEGATIVE SCREEN,U Result Comment: CUTOFF LEVEL: 100 NG/ML This test will accurately detect both oxycodone and oxymorphone. LAB PCP(LOINC) NEGATIVE PCP PRESUMPTIVE SCREEN,U NEGATIVE Result Comment: CUTOFF LEVEL: 25 NG/ML Cross-reactivity has been reported with dextromethorphan. Performed By: #### DRUG3 #### [facility] [address] [place] [address] URINE Observed: 03/27/2018 Status: F Source: [place] CULTURE,BACTERIAL 5:02 PM HOSPITALS REPOSITORY PATIENT: EDGARDO DENSON LOCATION: [place] [address] BILL#: [id number] : 63 AGE: SEX: F ORDERED BY: CISCO TNA SOURCE: URINE COLLECTED: 03/27/18 17:02 ANTIBIOTICS AT [place].: RECEIVED : 03/27/18 22:41 SITE: Clean Catch/Voided R E S U L T S URINE CULTURE,BACTERIAL FINAL 03/28/18 17:20 NO SIGNIFICANT GROWTH. Performed By: #### URINC #### [facility] [address] [place] [address] CBC AND DIFFERENTIAL Collected: 03/27/2018 Status: F Source: [place] 2:16 PM HOSPITALS REPOSITORY TYPE CODE TESTS RESULT OUT OF REFERENCE UNITS RANGE LAB WBCR(LOINC 4.4 - 11.3 x10E9/L ) WBC 8.8 LAB RBCCT(LOIN 4.00 - 5.20 x10E12/L C) RBC 4.06 LAB HGB(LOINC) 12.0 - 16.0 g/dL HGB 13.0 LAB HCT(LOINC) 36.0 - 46.0 % HCT 38.5 LAB MCV(LOINC) 80 - 100 fL MCV 95 LAB MCHC2(LOIN 32.0 - 36.0 g/dL C) MCHC 33.8 LAB PLTCT(LOIN 150 - 450 x10E9/L C) PLT 308 LAB RDWCV(LOIN 11.5 - 14.5 % C) RDW-CV 12.2 LAB NEUT(LOINC 40.0 - 80.0 % ) % NEUTROPHIL 62.0 LAB IG(LOINC) 0.0 - 0.9 % % AUTOMATED 0.3 IMMATURE GRAN Result Comment: Percent differential counts (%) should be interpreted in the context of the absolute cell counts (cells/L). LAB LYMPH(LOINC) 13.0 - 44.0 % % LYMPHOCYTE 28.3 LAB MONO(LOINC) 2.0 - 10.0 % % MONOCYTE 6.6 LAB EOS(LOINC) 0.0 - 6.0 % % EOSINOPHIL 2.3 LAB BASO(LOINC) 0.0 - 2.0 % % BASOPHIL 0.5 LAB #NEUT(LOINC) 1.20 - 7.70 x10E9/L NEUTROPHIL 5.49 LAB #LYMP(LOINC) 1.20 - 4.80 x10E9/L LYMPHOCYTE 2.50 LAB #MONO(LOINC) 0.10 - 1.00 x10E9/L MONOCYTE 0.58 LAB #EOS(LOINC) 0.00 - 0.70 x10E9/L EOSINOPHIL 0.20 LAB #BASO(LOINC) 0.00 - 0.10 x10E9/L BASOPHIL 0.04 Performed By: #### CBCDF #### [facility] [address] [id number] PT/INR Collected: 03/27/2018 Status: F Source: [address] REPOSITORY TYPE CODE TESTS RESULT OUT OF REFERENCE UNITS RANGE LAB PT(LOINC) 9.8 - 12.7 sec PROTHROMBIN TIME 11.6 LAB INR(LOINC) 0.9 - 1.1 PT, INR 1.0 Performed By: #### PTINR #### [facility] [address] [place] [address] APTT Collected: 03/27/2018 Status: F Source: [address] REPOSITORY TYPE CODE TESTS RESULT OUT OF RANGE REFERENCE UNITS LAB APTT(LOINC) 25 - 36 sec APTT 36 Result Comment: THE APTT IS NO LONGER USED FOR MONITORING UNFRACTIONATED HEPARIN THERAPY. FOR MONITORING HEPARIN THERAPY, USE THE HEPARIN ASSAY. Performed By: #### APTT #### [facility] [address] [id number] AMMONIA Collected: 03/27/2018 Status: F Source: [address] REPOSITORY TYPE CODE TESTS RESULT OUT OF REFERENCE UNITS RANGE LAB AMM(LOINC) umol/L AMMONIA 47 Result Comment: . REFERENCE VALUES DAY 1 to DAY 7 <110 DAY 8 to DAY 14 < 90 DAY 15 to ADULT 16-53 MILD HEMOLYSIS DETECTED. The result may be falsely elevated due to hemolysis or other interferents. Clinical correlation is recommended. Repeat testing may be considered. Performed By: #### AMM #### [facility] [address] [id number] TROPONIN I Collected: 03/27/2018 Status: F Source: [address] REPOSITORY TYPE CODE TESTS RESULT OUT OF REFERENCE UNITS RANGE LAB TROP2(LOINC 0.00 - 0.03 ng/mL ) TROPONIN I <0.02 Result Comment: LESS THAN 0.04 NG/ML: NEGATIVE REPEAT TESTING IN FOUR TO SIX HOURS IF CLINICALLY INDICATED. 0.04 - 0.5 NG/ML: CONSISTENT WITH POSSIBLE CARDIAC DAMAGE AND POSSIBLE INCREASED CLINICAL RISK. SERIAL MEASUREMENTS MAY HELP ASSESS EXTENT OF MYOCARDIAL DAMAGE. >0.5 NG/ML: CONSISTENT WITH CARDIAC DAMAGE, INCREASED CLINICAL RISK AND MYOCARDIAL INFARCTION. SERIAL MEASUREMENTS MAY HELP ASSESS EXTENT OF MYOCARDIAL DAMAGE. . Note: Troponin I testing is performed using different testing methodology at [facility] than at other [facility]. Direct result comparisons should only be made within the same method. Performed By: #### TROP2 #### [facility] [address] [place] [address] LACTATE Collected: 03/27/2018 Status: F Source: [place] 2:16 [facility] REPOSITORY TYPE CODE TESTS RESULT OUT OF REFERENCE UNITS RANGE LAB LACT(LOINC) 0.4 - 2.0 mmol/L LACTATE 1.2 Result Comment: Venipuncture immediately after or during the administration of Metamizole may lead to falsely low results. Testing should be performed immediately prior to Metamizole dosing. Performed By: #### LACT #### [facility] [address] [place] [address] BASIC METABOLIC PANEL Collected: 03/27/2018 Status: F Source: [place] 2:16 [facility] REPOSITORY TYPE CODE TESTS RESULT OUT OF REFERENCE UNITS RANGE LAB GLU(LOINC) 74 - 99 mg/dL GLUCOSE 93 LAB SOD(LOINC) 136 - 145 mmol/L Low SODIUM 135 LAB K(LOINC) 3.5 - 5.3 mmol/L POTASSIUM 5.3 Result Comment: MILD HEMOLYSIS DETECTED. The result may be falsely elevated due to hemolysis or other interferents. Clinical correlation is recommended. Repeat testing may be considered. LAB CHLOR(LOINC) 98 - 107 mmol/L CHLORIDE 104 LAB BIC(LOINC) 21 - 32 mmol/L BICARBONATE 23 LAB ANGAP(LOINC) 10 - 20 mmol/L ANION GAP 13 LAB UREA(LOINC) 6 - 23 mg/dL UREA NITROGEN 16 LAB CREA(LOINC) 0.50 - mg/dL 1.05 CREATININE 0.68 LAB GFRFN(LOINC) >60 mL/min/1.73m 2 GFR-NON AM. >60 LAB GFRAA(LOINC) >60 mL/min/1.73m 2 GFR- AM. >60 Result Comment: CALCULATIONS OF ESTIMATED GFR ARE PERFORMED USING THE MDRD STUDY EQUATION FOR THE IDMS-TRACEABLE CREATININE METHODS. CLIN CHEM 2007;53:766-72 LAB CA(LOINC) 8.6 - 10.3 mg/dL CALCIUM 9.3 Performed By: #### BMP #### [facility] [address] [place] [address] HEPATIC FUNCTION Collected: 03/27/2018 Status: F Source: [place] PANEL 2:16 PM HOSPITALS REPOSITORY TYPE CODE TESTS RESULT OUT OF REFERENCE UNITS RANGE LAB ALB(LOINC) 3.4 - 5.0 g/dL ALBUMIN 4.1 LAB TBILI(LOINC 0.0 - 1.2 mg/dL ) BILIRUBIN,TOTA 0.3 L LAB DBILI(LOINC 0.0 - 0.3 mg/dL ) BILIRUBIN,DIRE 0.1 CT Result Comment: MILD HEMOLYSIS DETECTED. The result may be falsely decreased due to hemolysis or other interferents. Clinical correlation is recommended. Repeat testing may be considered. LAB AP(LOINC) 33 - 110 U/L ALKALINE PHOSPHATASE 103 LAB ALT(LOINC) 7 - 45 U/L ALT 17 Result Comment: Patients treated with Sulfasalazine may generate falsely decreased results for ALT. LAB AST(LOINC) 9 - 39 U/L AST 23 Result Comment: MILD HEMOLYSIS DETECTED. The result may be falsely elevated due to hemolysis or other interferents. Clinical correlation is recommended. Repeat testing may be considered. LAB TP(LOINC) 6.4 - 8.2 g/dL TOTAL PROTEIN 7.5 Performed By: #### HEPFP #### [facility] [address] [place] [address] RISK SCREEN - ADULT Observed: 03/27/2018 Status: UNK Source: [place] [facility] 2:10 PM HOSPITALS REPOSITORY Preferred Language: Preferred Language: ? Preferred Language for Discussing Health Care (patient/designee)[place] Advanced Directives: ? Advance Directive Medicalno Family Violence Adult: Abuse Screen: ? Are you or have you been threatened or abused physically, emotionally, or sexually by anyone?no Suicide / Depression: Suicide/Depression Screen: ? During the past month, have you often been bothered by feeling down, depressed or hopeless?no ? During the past month, have you often had little interest or pleasure in doing things?no ? Have you had any thoughts of harming yourself?no (1) ? Have you had any thoughts of harming anyone else?no (1) Learning Assessment (Patient): Learning Assessment (Patient): ? Patient is Able to be Assessed for Learningyes ? Factors Influencing Readiness to Learnpain ? Factors that Impact Ability to Learnnone ? Devices/Methods Used to Communicatenone ? Learning Preferenceswritten material ? Cultural Considerationsnone ? Developmental Considerationsnone ? Lutheran Considerationsnone Learning Assessment (Other Learner): Learning Assessment (Other Learner): ? Other learner availableno Fall Risk Adult: Falls Risk: ? Altered Mobilitynone ? Change in Mental Statusno ? Relevant Medical History / Diagnosisnone ? Fall Historynone ? Altered Eliminationno ? Medications that Might Alter: equilibrium, cognitive judgement or severity of injurynone ? Sensory Deficitno ? UNABLE or UNWILLING to Follow Directionsno ? Patient Identified as a Falls Riskyes Pressure Injury: Pressure Injury Present on Admissionpatient denies Respiratory / Cough /TB: ED / TB / Cough / Respiratory Screen: ? Do you have a cough?no Smoking/Social History (Required age 13 or older): Smoking Status: unknown if ever smoked Admission Risk Screen: ? Significant IndicatorsComplete CAGE: CAGE: Is this an injured patient at a Trauma Center ([facility] / [facility]): no Electronic Signatures: Jodi Joya (ABIODUN) (Signed 27-Mar-2018 14:11) Authored: Preferred Language, Advanced Directives, Family Violence Adult, Suicide / Depression, Learning Assessment (Patient), Learning Assessment (Other Learner), Fall Risk Adult, Pressure Injury, Respiratory / Cough /TB, Smoking/Social History (Required age 13 or older), CAGE Last Updated: 27-Mar-2018 14:11 by Jodi Joya ([email or web address]) References: 1. Data Referenced From Triage - ED 03/27/2018 1:17 PM CHEST 2 VIEW PA AND Observed: 03/27/2018 Status: F Source: [facility] 1:45 PM HOSPITALS REPOSITORY Patient Name: EDGARDO DENSON STUDY: CHEST 2 VIEW PA AND LAT; 03/27/2018 1:45 pm INDICATION: Signs/Symptoms: syncope, weakness. COMPARISON: 12/25/2017 ACCESSION NUMBER(S): [id number] ORDERING CLINICIAN: CISCO TAN FINDINGS: PA and lateral chest. No focal infiltrate, pleural effusion or evidence of pneumothorax. Hyperinflation with emphysematous changes. The cardiac silhouette is normal in size. Osseous thorax appears intact. Partially imaged IVC filter in the upper abdomen. IMPRESSION: No acute cardiopulmonary process. Chronic changes of COPD. Electronically signed by: SHIRLEY SUN MD PROVIDER NOTE - ED Observed: 03/27/2018 Status: COMPLETED Source: [place] V2 1:26 PM HOSPITALS REPOSITORY Provider Note - ED v2: Chart Review: ED NOTES ED NOTES: CC: Syncope HPI: A 52 year old female presents with syncope. Pt has a history of depression, chronic pain, fibromyalgia, 3 CVAs, MRSA, seizures, PE, and an unknown autoimmune disease. Pt states that she has had multiple episodes of syncope over the past 2 weeks. She states that her family convinced her to come to the ED. She also complains of reduced urine frequency and right flank pain, which she has had for the past few weeks. The pt notes vision changes that involve her eyesight going blurry for some time before clearing up. The pt sought recent treatment at the ED and was referred to an sand technician regarding the double vision she was experiencing at the time. She denies any symptoms before her syncopal episodes. Her daughter states that her syncopal episodes are not seizures and look serotonin syndrome-related. She also denies headache, fever, hypertension, vomiting, incontinence from passing out, diarrhea, dysuria, diabetes mellitus, cancer, liver disease or injury, or syncope-related pain or injury. Pt takes Pradaxa. Pt also takes Effexor for her depression and denies recent dosage changes. Pt admits to smoking. ROS: A 14 pt ROS was completed and is otherwise negative unless mentioned above. Nursing note and triage review of systems reviewed, and any discrepancy noted is reflecting patient interaction and their own report of symptoms. PMHx: Depression, chronic pain, fibromyalgia, 3 CVAs, MRSA, seizures, PE, an unknown autoimmune disease FamilyHx: Reviewed, noncontributory to today's event SocialHx: Admits to smoking Medications: Reviewed. See Medication Reconciliation PCP: Darinel Morillo MD Physical Exam Appearance: Alert, oriented , cooperative, in no acute distress. Skin: Intact, dry skin, no lesions, rash, petechiae or purpura. Eyes: PERRLA, EOMs intact, Conjunctiva pink with no redness or exudates. Cornea & anterior chamber are clear, Eyelids without lesions. No scleral icterus. ENT: Dry mucous membranes. Hearing grossly intact, TMs intact with no effusion or hemotympanum. Patent oronasopharynx. Neck: Supple, without meningismus. Thyroid not palpable. Trachea at midline. No lymphadenopathy. Pulmonary: Clear bilaterally with good chest wall excursion. No rales, rhonchi or wheezing. No accessory muscle use or stridor. Cardiac: Normal S1, S2 without murmur, rub, gallop or extrasystole. No JVD, Carotids without bruits. Abdomen: Right CVA tender to palpation. No suprapubic pain. Soft, active bowel sounds. No palpable organomegaly. No rebound or guarding. Genitourinary: Exam deferred. Musculoskeletal: Symmetric strength. Full range of motion. no pain, edema, or deformity. Pulses full and equal. No cyanosis, clubbing. No LE edema. Neurological: Cranial nerves II through XII are grossly intact, finger-nose touch is normal, normal sensation, no weakness, no focal findings identified. Psychiatric: Appropriate mood and affect. Nursing Assessment and Vitals Reviewed ED Course -IV established and labs drawn -Patient placing continuous cardiopulmonary monitoring -EKG obtained revealing normal sinus rhythm with rate of 76, normal interval, normal axis, no concerning ST or T-wave segment changes consistent with ischemia Medical Decision -Patient had presented with a complaint of syncopal episode, as had complex medical history as mentioned above. She is nontoxic in arrival no fever no chills, no tachycardia no hypotension no clinical concern for infection or sepsis. She has no evidence of meningitis or encephalitis. She is mentating appropriately and able to have a conversation. -Is comfort reproducible, has no urinary symptoms whatsoever, urine was obtained no blood no sign of UTI, clinical concern for stone is low we'll sent for noncontrast CT the abdomen and pelvis -Regarding syncopal episode she has no murmur of aortic stenosis, EKG is nonischemic, troponin negative, delta troponin negative as well, no point had chest pain or trouble breathing. She has history of seizure versus psychogenic seizure, states compliance with Vimpat, no sign of postictal state. -Battery of labs was obtained, no sign of anemia on CBC, no leukocytosis, no electrolyte abnormality no sign of renal insufficiency, otherwise labs mentioned as above -Admit to the patient's primary doctor, Dr. Castano, and discussed the case. Patient was actually at a doctor's appointment with him earlier today, she had a syncopal episode while he was out of the room, she was found down on the ground, EMS was contacted and they brought the patient for facility for evaluation. He did not mention that she sustained a fall and was found down on the ground. She has no midline cervical spine tenderness, nonfocal neuro exam, we will obtain a CT scan of the had the my clinical suspicion for intracranial bleed is low. She does endorse periodic diplopia, has had this for the past couple of weeks, seen and evaluated at [facility] where she received the bulk of the care -Of note, the patient is on heavy narcotic medication for chronic pain, recently weaned off fentanyl patch, still on 150 mg monthly oxycodone equivalent, taking this medication regularly at home. She denies any illicit drug use. We will obtain urine drug screen. This is likely contributing to some of her symptoms. She was monitored here in the emergency department she had no seizure activity. -Given multiple syncopal episodes, patient will require admission, telemetry monitoring, she remained him an enema stable this time, we'll admit to IM internal salesperson Impression -Syncope -opioid Dependent -Right flank pain likely musculoskeletal -Diplopia Critical Care Time: -none Disposition -adm, stable Cisco Tan, [facility] HISTORY OF PRESENTING ILLNESS EDGARDO was seen by me at 27-Mar-2018 13:15 for a chief complaint of syncope(1). Other complaints include: pt comes in today from the doctor's office. EMS states she was in the exam room and the doctor found her prone on the floor in the room - EMS was then called. Pt states these syncopal episodes have been going on for a week. . Triage Information: Most recent Vital Sign Value Date Heart Rate (beats/min): 78 03-27-2018 13:17 Respirations (breaths/min): 16 03-27-2018 13:17 SpO2 (%): 99 03-27-2018 13:17 BP Systolic (mm Hg): 106 03-27-2018 13:17 BP Diastolic (mm Hg): 86 03-27-2018 13:17 PAST MEDICAL HISTORY ATTESTATION: I have reviewed and confirmed nurse's/medic's notes for patient's medications, allergies, medical history, and surgical history ALLERGIES/INTOLERANCES: Allergy Allergen: vancomycin Type: Drug Reaction: Anaphylaxis (Mild) Allergen: Depakote Type: Drug Reaction: Other Allergen: Tegretol Type: Drug Reaction: Other Allergen: penicillin Type: Drug Reaction: Swelling/Edema Allergen: Septra Type: Drug Reaction: Unknown Allergen: Sulfacetamide Sodium Type: Drug Reaction: Unknown Intolerance Allergen: erythromycin Type: Drug Reaction: Gastritis HEALTH HISTORY: Medical History Name:Fatigue Code:N/A Name:Pulmonary embolism Code:052746873 Name:Seizure disorder (disorder) Code:147138498 Name:Migraine NOS (disorder) Code:169558843 Name:Depression NOS Code:249937373 Name:Chronic pain Code:11483129 Name:Allergic disorder Code:839992454 Name:Pain, chronic Code:G89.29 OUTPATIENT MEDICATIONS: Home Medications Review Status for Reconciliation: N/A Med Status: Incomplete Medication History Drug Name: Effexor Instructions: 300 milligram(s) orally once a day Drug Name: Aldactone 25 mg oral tablet Instructions: orally , As Needed Drug Name: loratadine 10 mg oral tablet Instructions: 1 tab(s) orally once a day Drug Name: PriLOSEC OTC 20 mg oral delayed release capsule Instructions: 1 cap(s) orally once a day Drug Name: KlonoPIN 0.5 mg oral tablet Instructions: 0.5 milligram(s) orally every 8 hours, As Needed - for agitation Drug Name: Zantac 150 oral tablet Instructions: 1 tab(s) orally 2 times a day, As Needed Drug Name: Lomotil 2.5 mg-0.025 mg oral tablet Instructions: 2 tab(s) orally 4 times a day, As Needed Drug Name: Pradaxa 150 mg oral capsule Instructions: 1 cap(s) orally 2 times a day Drug Name: potassium chloride 20 mEq oral tablet, extended release Instructions: 1 tab(s) orally , As Needed Drug Name: Percocet 5/325 oral tablet Instructions: 1 tab(s) orally every 6 hours, As Needed Drug Name: gabapentin 300 mg oral capsule Instructions: 3 cap(s) orally 3 times a day Drug Name: Benadryl 25 mg oral tablet Instructions: 25 milligram(s) orally 3 times a day, As Needed SIGNIFICANT EVENTS: Immunizations Description:.Pneumonia- Pneumococcal polysaccharide vaccine-adult Status:Active Description:.Influenza- Influenza Virus Status:Active Past Medical History Description:Arrythmia Status:Active Description:Fibromyalgia Status:Active Description:Arthritis Status:Active Description:MRSA Status:Active Description:Cardiac Arrest Status:Active Description:SMOKER 1/2 PACK DAILY Status:Active Description:Hemmorhagic gastritis Status:Active Description:MSSA Mario 03/2010 Status:Active Description:CVA X 3 Status:Active Description:Seizure disorder vs pseudoseizures Status:Active Description:Depression vs Schizoaffective disorder Status:Active Description:PE/DVT 2006, IVC filter Status:Active Description:Postherpatic Neurolgia Status:Active Description:Borderline Personality Disorder Status:Active Description:Frequent MRSA infections/abcesses of skin/soft tissue Status:Active Description:Chronic Pain Status:Active Description:?Munchausen Syndrome Status:Active Description:?Seritonian syndrome Status:Active Description:Reflex sympathetic dystrophy of all extremities Status:Active Description:?RAJAN Status:Active Description:Migraines Status:Active Description:?Atypical Asthma Status:Active 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) Is : no(1) RESULTS/VITAL SIGNS RESULTS: Recent Lab Results: I have reviewed these laboratory results: Urinalysis 27-Mar-2018 17:02:00 ResultValue Color, Urine STRAW Reference Range: STRAW,YELLOW Appearance, Urine CLEAR Specific [place], Urine 1.009 pH, Urine 6.0 Protein, Urine NEGATIVE Glucose, Urine NEGATIVE Blood, Urine NEGATIVE Ketones, Urine NEGATIVE Bilirubin, Urine NEGATIVE Urobilinogen, Urine <2.0 Nitrite, Urine NEGATIVE Leukocyte Esterase, Urine NEGATIVE Troponin I, Serum Trending View [id number] 17:02:00 27-Mar-2018 14:16:00 Troponin I, Serum<0.02 <0.02 Hepatic Function Panel 27-Mar-2018 14:16:00 ResultValue Aspartate Transaminase, Serum 23 ALB 4.1 T Bili 0.3 Bilirubin, Serum Direct - Conjugated 0.1 ALKP 103 Alanine Aminotransferase, Serum 17 T Pro 7.5 Complete Blood Count + Differential 27-Mar-2018 14:16:00 ResultValue White Blood Cell Count 8.8 Red Blood Cell Count 4.06 HGB 13.0 HCT 38.5 MCV 95 MCHC 33.8 PLT 308 RDW-CV 12.2 Neutrophil % 62.0 Immature Granulocytes % 0.3 Lymphocyte % 28.3 Monocyte % 6.6 Eosinophil % 2.3 Basophil % 0.5 Neutrophil Count 5.49 Lymphocyte Count 2.50 Monocyte Count 0.58 Eosinophil Count 0.20 Basophil Count 0.04 Basic Metabolic Panel 27-Mar-2018 14:16:00 ResultValue Glucose, Serum 93 NA 135 L K 5.3 CL 104 Bicarbonate, Serum 23 Anion Gap, Serum 13 BUN 16 CREAT 0.68 GFR-Non >60 GFR- >60 Calcium, Serum 9.3 PT + INR, Plasma 27-Mar-2018 14:16:00 ResultValue Prothrombin Time, Plasma 11.6 International Normalized Ratio, Plasma 1.0 Lactate, Level 27-Mar-2018 14:16:00 ResultValue Lactate, Level 1.2 Ammonia, Plasma 27-Mar-2018 14:16:00 ResultValue Ammonia, Plasma 47 Activated Partial Thromboplastin Time 27-Mar-2018 14:16:00 ResultValue Activated Partial Thromboplastin Time 36 Glucose_POCT 27-Mar-2018 13:11:00 ResultValue Glucose-POCT 103 H Radiology Results: Impression: No acute cardiopulmonary process. Chronic changes of COPD. Xray Chest 2 View PA + Lateral [Mar 27 2018 1:51PM] VITAL SIGNS: T PRBP SpO2O2(LPM) %FiO2 Method 27-Mar-2018 18:00:[id number] 97 27-Mar-2018 17:00:[id number]/70 96 27-Mar-2018 16:00:00-8821563/72 93 27-Mar-2018 15:00:00-685097/79 97 27-Mar-2018 14:00:[id number]/78 98 27-Mar-2018 13:30:[id number]/63 97 27-Mar-2018 13:17:00-8609094/86 99 room air, no respiratory support 27-Mar-2018 13:13:[id number]/86 99 room air, no respiratory support CLINICAL IMPRESSION Diagnosis/Annotation: ED Dx Name:Syncope Code:R55 Dispostion: hospitalized ATTESTATION Comments/Additional Findings: Eulalia Lauren, blanca scribing for and in the presence of Dr. Britney DO. CRITICAL CARE TIME Is this a critically ill patient?: no Electronic Signatures: Cisco Tan) (Signed 27-Mar-2018 18:46) Authored: Provider Note - ED v2 Eulalia Bo (Scribe) (Entered 27-Mar-2018 13:58) Entered: Provider Note - ED v2 Last Updated: 27-Mar-2018 18:46 by Cisco Tan () References: 1. Data Referenced From Triage - ED 03/27/2018 1:17 PM TRIAGE - ED Observed: 03/27/2018 Status: UNK Source: [place] 1:17 PM HOSPITALS REPOSITORY Quick Triage: Are You no Are You Currently Breastfeedingno Chart Review: CHIEF COMPLAINT EDGARDO DENSON is a Female patient with a chief complaint of syncope. Other Complaints: pt comes in today from the doctor's office. EMS states she was in the exam room and the doctor found her prone on the floor in the room - EMS was then called. Pt states these syncopal episodes have been going on for a week. Triage Date/Time: 27-Mar-2018 13:04 Vital Signs: Blood Pressure: 106/86 Mean: Heart Rate: 78 Respiratory Rate: 16 Pulse Oximetry: 99% on room air, no respiratory support. Cough lasting greater than 3 weeks: no Travel outside of [place]: no Allergies: yes Patient has suicidal thoughts: no Patient has homicidal thoughts: no SABINE: 3 PAIN Pain Scale Used: LISANDRO Past Medical History: ? Past Medical History Reviewedno Electronic Signatures: Ruth Morgan) (Signed 27-Mar-2018 13:21) Authored: Triage, Past Medical History Last Updated: 27-Mar-2018 13:21 by Ruth Morgan ([email or web address]) GLUCOSE-POCT Collected: 03/27/2018 Status: F Source: [place] 1:11 PM HOSPITALS REPOSITORY TYPE CODE TESTS RESULT OUT OF RANGE REFERENCE UNITS LAB GLUP(LOINC) 74 - 99 mg/dL High 103 GLUCOSE-POCT Performed By: #### GLUPO #### [facility] [address] [place] [address] PROGRESS Observed: 03/27/2018 Status: COMPLETED Source: [place] 12:38 PM [facility] RE[facility]IT[facility] HNO ID: [id number] Author: Ryan Castano Service: (none) Author Type: Physician Type: Progress Notes Filed: 03/27/2018 6:27 PM Note Text: Edgardo Denson is a 52 year old female who presents for an acute visit with R sided flank pain. She was noted to be fine with stable vital signs when she was roomed. When I walked into the room at approximately 12:15 PM she was down on the floor rolled to her right with her face in the carpet and unresponsive. She was breathing and had a pulse. She gradually began responding. She was complaining only of flank pain. I rolled her with neck control onto her back. Oxygen was applied and 911 called. She has been having an increased pattern of syncopal spells over the last several weeks. She has been off her oxycodone for several days; Lindsey took it away because she was slurring her speech. She was seen and released from the ED 03-24. She now is complaining of neck pain (chronic), headache, and ongoing R flank pain; she thinks she may have hit her head when she fell. She reports that she has taken 2 doses of clonazepam this morning. She was dropped off here by her daughter but had some conflict with her today. 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 Muscle Spasm Chemical dependency (HCC) Left Arm Weakness Depression Lethargy Djd (Degenerative Joint Disease), Cervical Emphysema of Lung (Hcc) Chronic Deep Vein Thrombosis of Left Femoral Vein (Hcc) Vitamin D Deficiency Psychosis (Hcc) Gerd (Gastroesophageal Reflux Disease) Asthma Psychiatric Disorder Tubulovillous Adenoma of Colon Nausea Delusional Disorder (Hcc) Orthostasis Illicit Drug Use Phencyclidine (Pcp) Use Disorder, Moderate, Dependence (Hcc) Psychogenic Nonepileptic Seizure Opacity of Lung On Imaging Study Current Outpatient Prescriptions: clonazePAM (KLONOPIN) 0.5 mg tablet Take 1 tablet by mouth three times daily as needed for up to 30 days. dabigatran etexilate (PRADAXA) 150 mg cap Take 1 capsule by mouth twice daily. spironolactone (ALDACTONE) 25 mg tablet Take 1 tablet by mouth once daily as needed. Takes as needed venlafaxine ER (EFFEXOR XR) 150 mg 24 hr capsule Take 2 capsules by mouth once daily. promethazine (PHENERGAN) 25 mg tablet Take 1 tablet by mouth every 8 hours as needed. potassium chloride 20 mEq TbER Take 1 tablet by mouth every Tuesday,Tuesday,Tuesday. gabapentin (NEURONTIN) 300 mg capsule take 3 capsules by mouth three times a day COMPOUNDED PRESCRIPTION Low Dose Naltrexone2 mg capsule (do not use calcium filler)Take one capsule by mouth at 9:00 PM every night baclofen (LIORESAL) 10 mg tablet Take 0.5-1 tablets by mouth once daily. dabigatran etexilate (PRADAXA) 150 mg cap Take 1 capsule by mouth twice daily. dicyclomine (BENTYL) 20 mg tablet Take 1 tablet by mouth four times daily. omeprazole (PRILOSEC) 20 mg capsule Take 1 capsule by mouth once daily. fluticasone-salmeterol (ADVAIR DISKUS) 500-50 mcg/dose dsdv Inhale 1 Puff as instructed twice daily. RINSE AND GARGLE MOUTH WITH WATER AFTER EACH USE. loperamide (IMODIUM) 2 mg cap(s) Take 1 capsule by mouth as needed for Diarrhea. Cetirizine (ZYRTEC) 10 mg cap Take by mouth once daily. ergocalciferol, vitamin D2, (DRISDOL) 50,000 unit capsule Take 1 capsule by mouth every Tuesday. Indications: VITAMIN D DEFICIENCY oxyCODONE-acetaminophen (PERCOCET) 5-325 mg tablet 1 po q4h prn breakthrough pain (MAXIMUM 5 pills/day)Earliest Fill Date: 03/06/18 lacosamide (VIMPAT) 100 mg tab Take 1 tablet by mouth twice daily for 30 days. No current facility-administered medications for this visit. Physical Examination: BP 111/72 Pulse 84 Temp 36.9 ?C (98.5 ?F) (Axillary) Wt 60.8 kg (134 lb) BMI 23.00 kg/m? 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 ASSESSMENT/PLAN: 1. Syncope, unspecified syncope type - ICD9: 780.2, ICD10: R55 She does have a history of nonepileptic seizures. She seems to have regained her baseline after a period of drowsiness and somewhat slurred speech. The squad was immediately called when she was found and are transporting her to the emergency department. 2. Chronic pain If she truly has been off her oxycodone for several days, please try not to reinitiated. We did wean her off fentanyl patches successfully. Ryan Castano MD Addendum: discussed w attending in [facility] Dr. Tan who will admit CNOV Observed: 03/27/2018 Status: COMPLETED Source: [place] 10:40 AM [facility] REPOSITORY Office Visit (FAMPBD) EDGARDO DENSON ([id number]) 1965 F Date Time Provider Department 03/27/18 10:40 AM RYAN CASTANO During your visit today, we recorded the following information about you: Temperature Pulse Blood pressure Weight 98.5 degrees 84/minute 111/72 60.8 kg Ryan Castano MD 03/27/2018 6:27 PM Addendum Edgardo Denson is a 52 year old female who presents for an acute visit with R sided flank pain. She was noted to be fine with stable vital signs when she was roomed. When I walked into the room at approximately 12:15 PM she was down on the floor rolled to her right with her face in the carpet and unresponsive. She was breathing and had a pulse. She gradually began responding. She was complaining only of flank pain. I rolled her with neck control onto her back. Oxygen was applied and 911 called. She has been having an increased pattern of syncopal spells over the last several weeks. She has been off her oxycodone for several days; Lindsey took it away because she was slurring her speech. She was seen and released from the ED 8-10. She now is complaining of neck pain (chronic), headache, and ongoing R flank pain; she thinks she may have hit her head when she fell. She reports that she has taken 2 doses of clonazepam this morning. She was dropped off here by her daughter but had some conflict with her today. 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 Other Pulmonary Embolism and Infarction Longterm (Current) Use of Anticoagulants Muscle Spasm Chemical dependency ([facility]) Left Arm Weakness Depression Lethargy Djd (Degenerative Joint Disease), Cervical Emphysema of Lung ([facility]) Chronic Deep Vein Thrombosis of Left Femoral Vein ([facility]) Vitamin D Deficiency Psychosis ([facility]) Gerd (Gastroesophageal Reflux Disease) Asthma Psychiatric Disorder Tubulovillous Adenoma of Colon Nausea Delusional Disorder ([facility]) Orthostasis Illicit Drug Use Phencyclidine (Pcp) Use Disorder, Moderate, Dependence ([facility]) Psychogenic Nonepileptic Seizure Opacity of Lung On Imaging Study Current Outpatient Prescriptions: clonazePAM (KLONOPIN) 0.5 mg tablet Take 1 tablet by mouth three times daily as needed for up to 30 days. dabigatran etexilate (PRADAXA) 150 mg cap Take 1 capsule by mouth twice daily. spironolactone (ALDACTONE) 25 mg tablet Take 1 tablet by mouth once daily as needed. Takes as needed venlafaxine ER (EFFEXOR XR) 150 mg 24 hr capsule Take 2 capsules by mouth once daily. promethazine (PHENERGAN) 25 mg tablet Take 1 tablet by mouth every 8 hours as needed. potassium chloride 20 mEq TbER Take 1 tablet by mouth every Tuesday,Tuesday,Tuesday. gabapentin (NEURONTIN) 300 mg capsule take 3 capsules by mouth three times a day COMPOUNDED PRESCRIPTION Low Dose Naltrexone2 mg capsule (do not use calcium filler)Take one capsule by mouth at 9:00 PM every night baclofen (LIORESAL) 10 mg tablet Take 0.5-1 tablets by mouth once daily. dabigatran etexilate (PRADAXA) 150 mg cap Take 1 capsule by mouth twice daily. dicyclomine (BENTYL) 20 mg tablet Take 1 tablet by mouth four times daily. omeprazole (PRILOSEC) 20 mg capsule Take 1 capsule by mouth once daily. fluticasone-salmeterol (ADVAIR DISKUS) 500-50 mcg/dose dsdv Inhale 1 Puff as instructed twice daily. RINSE AND GARGLE MOUTH WITH WATER AFTER EACH USE. loperamide (IMODIUM) 2 mg cap(s) Take 1 capsule by mouth as needed for Diarrhea. Cetirizine (ZYRTEC) 10 mg cap Take by mouth once daily. ergocalciferol, vitamin D2, (DRISDOL) 50,000 unit capsule Take 1 capsule by mouth every Tuesday. Indications: VITAMIN D DEFICIENCY oxyCODONE-acetaminophen (PERCOCET) 5-325 mg tablet 1 po q4h prn breakthrough pain (MAXIMUM 5 pills/day)Earliest Fill Date: 03/06/18 lacosamide (VIMPAT) 100 mg tab Take 1 tablet by mouth twice daily for 30 days. No current facility-administered medications for this visit. Physical Examination: BP 111/72 Pulse 84 Temp 36.9 ?C (98.5 ?F) (Axillary) Wt 60.8 kg (134 lb) BMI 23.00 kg/m? 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 ASSESSMENT/PLAN: 1. Syncope, unspecified syncope type - ICD9: 780.2, ICD10: R55 She does have a history of nonepileptic seizures. She seems to have regained her baseline after a period of drowsiness and somewhat slurred speech. The squad was immediately called when she was found and are transporting her to the emergency department. 2. Chronic pain If she truly has been off her oxycodone for several days, please try not to reinitiated. We did wean her off fentanyl patches successfully. Ryan Castano MD Addendum: discussed w attending in [facility] Dr. Tan who will admit Referring Provider: SELF [[id number]] Allergies As of Date: 03/27/2018 Noted Allergy Reaction CELLACEFATE 01/07/2006 7 - Swelling DEPAKOTE (DIVALPROEX SODIUM) 01/07/2006 8 - GI Upset DILANTIN (PHENYTOIN SODIUM EXTEND*06/03/2015 8 - GI Upset FISH CONTAINING PRODUCTS 05/13/2015 16 - Unknown PENICILLIN G 01/07/2006 8 - GI Upset Comments: tolerates zosyn . sdm. 03/2007 TOLERATES KEFLEX 3-31-11 SHRIMP 05/13/2015 16 - Unknown SULFA (SULFONAMIDE ANTIBIOTICS) 05/17/2007 8 - GI Upset Comments: Gastritis TOPAMAX (TOPIRAMATE) 05/21/2009 1 - Mental Status Change HALDOL (HALOPERIDOL) 02/03/2008 1 - Mental Status Change 3 - Cough 8 - GI Upset 9 - Itching Date Reviewed: 03/27/2018 Reviewed by: Di Che - Fully Assessed Reason for Visit: right kidney pain [Other] Primary Visit Diagnosis:Syncope, unspecified syncope type [R55] Prescriptions as of 03/27/2018 Sig: CLONAZEPAM 0.5 MG TABLET Take 1 tablet by mouth three * DABIGATRAN ETEXILATE 150 MG C* Take 1 capsule by mouth twice* SPIRONOLACTONE 25 MG TABLET Take 1 tablet by mouth once d* VENLAFAXINE ER 150 MG CAPSULE* Take 2 capsules by mouth once* PROMETHAZINE 25 MG TABLET Take 1 tablet by mouth every * POTASSIUM CHLORIDE ER 20 MEQ * Take 1 tablet by mouth every * GABAPENTIN 300 MG CAPSULE take 3 capsules by mouth thre* COMPOUNDED PRESCRIPTION Low Dose Naltrexone 2 mg cap* BACLOFEN 10 MG TABLET Take 0.5-1 tablets by mouth o* DABIGATRAN ETEXILATE 150 MG C* Take 1 capsule by mouth twice* DICYCLOMINE 20 MG TABLET Take 1 tablet by mouth four t* OMEPRAZOLE 20 MG CAPSULE,VENESSA* Take 1 capsule by mouth once * FLUTICASONE 500 MCG-SALMETERO* Inhale 1 Puff as instructed t* LOPERAMIDE 2 MG CAPSULE Take 1 capsule by mouth as ne* CETIRIZINE 10 MG CAPSULE Take by mouth once daily. ERGOCALCIFEROL (VITAMIN D2) 5* Take 1 capsule by mouth every* OXYCODONE-ACETAMINOPHEN 5 MG-* 1 po q4h prn breakthrough anthony* LACOSAMIDE 100 MG TABLET Take 1 tablet by mouth twice * Problem List As Of Date 03/27/2018 Noted Resolved Cellulitis and abscess of leg, except foot [L03*INVALID FOR*02/25/2017 Methicillin susceptible Staphylococcus aureus i*INVALID FOR*02/25/2017 Pseudomonas infection in conditions classified *INVALID FOR*02/25/2017 Edema [R60.9] INVALID FOR*08/31/2017 Reflex sympathetic dystrophy of lower limb [G90*INVALID FOR* Psoas muscle abscess (HCC) [K68.12] INVALID FOR*02/25/2017 More... Candidiasis of unspecified site [B37.9] INVALID FOR*08/31/2017 More... Other streptococcus infection in conditions cla*INVALID FOR*02/25/2017 More... Bacteremia [R78.81] INVALID FOR*02/25/2017 Other lymphedema [I89.0] INVALID FOR*02/25/2017 Chronic pain syndrome [G89.4] INVALID FOR* Opioid type dependence, continuous (HCC) [F11.2*INVALID FOR* TOBACCO USE DISORDER [F17.200] Other convulsions [R56.9] INVALID FOR*02/25/2017 Priority: Moderate Sleep Hypovent Oth Dis [G47.36] INVALID FOR* Priority: Mild HYPOPOTASSEMIA [E87.6] INVALID FOR*02/28/2009 Priority: Moderate VENA CAVA THROMBOSIS [I82.220] INVALID FOR* Anemia, unspecified [D64.9] INVALID FOR*10/31/2017 Embolism and thrombosis (HCC) [I74.9] INVALID FOR*02/25/2017 Priority: B More... Other Pulmonary Embolism and Infarction [I26.99]INVALID FOR* Encounter for Long-Term (Current) Use of Antico*INVALID FOR* More... Left leg pain [M79.605] INVALID FOR*02/25/2017 Muscle spasm [M62.838] INVALID FOR* Leg pain [M79.606] INVALID FOR*02/25/2017 Depression, reactive [F32.9] 02/25/2017 More... Iron defic anemia NEC INVALID FOR*10/31/2017 Agitation [R45.1] INVALID FOR*02/25/2017 Other chronic pain [G89.29] INVALID FOR*12/03/2017 Priority: F More... Altered mental status [R41.82] INVALID FOR*05/19/2016 Chemical dependency (HCC) [F19.20] INVALID FOR* SUMMARY INVALID FOR*02/25/2017 Priority: A More... Left arm weakness [R29.898] INVALID FOR* Priority: B More... Chest pain [R07.9] INVALID FOR*10/31/2017 Priority: A More... Cellulitis [L03.90] INVALID FOR*02/25/2017 Priority: D More... Depression [F32.9] INVALID FOR* Priority: D More... Lethargy [R53.83] INVALID FOR* More... Seizure disorder (HCC) [G40.909] INVALID FOR*11/12/2017 More... Low BP [I95.9] INVALID FOR*08/31/2017 More... DJD (degenerative joint disease), cervical [M50* Anxiety state, unspecified [F41.1] 04/22/2014 Pain [R52] INVALID FOR*08/31/2017 Priority: B More... Fever [R50.9] INVALID FOR*02/25/2017 Priority: C More... Delirium [R41.0] INVALID FOR*02/25/2017 Priority: A More... Hematemesis [K92.0] INVALID FOR*02/25/2017 Priority: C More... Emphysema of lung (HCC) [J43.9] INVALID FOR* Smoker [F17.200] INVALID FOR*02/25/2017 Chronic deep vein thrombosis of left femoral ve*INVALID FOR* Vitamin D deficiency [E55.9] INVALID FOR* Psychosis [F29] INVALID FOR* GERD (gastroesophageal reflux disease) [K21.9] INVALID FOR* Asthma [J45.909] INVALID FOR* Orthostatic hypotension [I95.1] INVALID FOR*08/31/2017 More... Psychiatric disorder [F99] INVALID FOR* More... 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 Syncope [R55] INVALID FOR*08/31/2017 Intentional fentanyl overdose (HCC) [T40.4X2A] INVALID FOR*08/31/2017 Nausea [R11.0] INVALID FOR* Delusional disorder (HCC) [F22] INVALID FOR* More... Orthostasis [I95.1] INVALID FOR* Illicit drug use [F19.90] INVALID FOR* Phencyclidine (PCP) use disorder, moderate, dep*INVALID FOR* Psychogenic nonepileptic seizure [F44.5] INVALID FOR* Opacity of lung on imaging study [R91.8] INVALID FOR* More... Encounter Status:Closed by RYAN CASTANO MD on 03/27/18 ED NOTE Observed: 03/25/2018 Status: COMPLETED Source: [place] 3:40 AM [facility] REPOSITORY HNO ID: [id number] Author: Aleks Alcantar) ABIODUN Cantor Service: (none) Author Type: Registered Nurse Type: ED Notes Filed: 03/25/2018 3:54 AM Note Text: Pt given discharge instructions and a copy of her lab work that she had requested. Pt began screaming at myself and other staff members again. Respond with heart continued. ED NOTE Observed: 03/25/2018 Status: COMPLETED Source: [place] 3:35 AM [facility] REPOSITORY HNO ID: [id number] Author: Aleks Alcantar) ABIODUN Cantor Service: (none) Author Type: Registered Nurse Type: ED Notes Filed: 03/25/2018 3:47 AM Note Text: Pt daughter called in to the ED. Pt's daughter stated that her friends would be coming into get her because she herself can not drive at night. Pt is aware that we spoke with daughter and that discharge instructions were given to her. ED NOTE Observed: 03/25/2018 Status: COMPLETED Source: [place] 3:30 AM [facility] REPOSITORY HNO ID: [id number] Author: Fred Alcantar) ABIODUN Plunkett Service: Emergency Medicine Author Type: Registered Nurse Type: ED Notes Filed: 03/25/2018 3:53 AM Note Text: This RN observed patient throw her discharge paperwork at ABIODUN Cervantes. This RN wheeled patient to waiting area where patient continued to scream. Patient told people in the waiting room that they should not be here because we kill people. Patient also continued to scream at the EMS crew as they were bringing another patient in. Patient requested to be taken outside to wait for her daughter to pick her up. As this RN was wheeling patient out, patient continued to scream at other people that it is a mistake to come into this ER because everyone is incompetent. Patient screamed to a lady in labor that she shouldn't come in here because this hospital will kill her and her baby. Patient continued to scream at this RN and started to smoke a cigarette right by the entrance door. Security was called. Patient continued to scream at security and [employer]. ED NOTE Observed: 03/25/2018 Status: COMPLETED Source: [place] 3:25 AM [facility] REPOSITORY HNO ID: [id number] Author: Aleks Alcantar) ABIODUN Cantor Service: (none) Author Type: Registered Nurse Type: ED Notes Filed: 03/25/2018 3:55 AM Note Text: Went into answer call light of pt was standing in room attempting to call her daughter. Pt started screaming at me. Respond with heart initiated. Pt using profanity. Pt demanding information and that we didn't do anything for her and that we are wrong. ED NOTE Observed: 03/25/2018 Status: COMPLETED Source: [place] 2:45 AM [facility] REPOSITORY HNO ID: [id number] Author: Aleks Alcantar) ABIODUN Cantor Service: (none) Author Type: Registered Nurse Type: ED Notes Filed: 03/25/2018 3:45 AM Note Text: While I was in with a a different pt pt ambulated into the jimenez and waited outside of the room for me to come out and began yelling at me that we were doing anything for her and that she was unconscious and dehydrated. Start with heart initiated. Pt was informed by the physician of her test results test results were then reinforced. ED NOTE Observed: 03/25/2018 Status: COMPLETED Source: [place] 1:52 AM [facility] REPOSITORY HNO ID: [id number] Author: NAIMA Patton (Pcna) Service: (none) Author Type: Patient Care Employee Representative Type: ED Notes Filed: 03/25/2018 1:52 AM Note Text: Straight cath urine specimen obtained and sent. URINALYSIS WITH Collected: 03/25/2018 Status: F Source: [facility] 1:52 AM [facility] OTHER CAMPUS REPOSITORY TYPE CODE TESTS RESULT OUT OF RANGE REFERENCE UNITS LAB UCOL Yellow Color Yellow LAB [facility] Clear Clarity Clear LAB UGLUC Negative mg/dL Glucose, Urine Negative LAB UBIL Negative Bilirubin, Urine Negative LAB UKET Negative Ketones, Urine Negative LAB USPG 1.003-1.030 Specific [place], Ur 1.020 LAB UHGB Negative Hemoglobin/Blood, Negative Ur LAB UPH 5.0-9.0 pH 6.0 LAB UPROT Negative mg/dL Protein, Abnormal Urine Trace Alert LAB UUROB Urobilinogen Normal Result Comment: Reference Interval: <2.0 mg/dL LAB UNITR Negative Nitrites Negative LAB ULKEST Negative Abnormal Leukest Alert Trace LAB UWBC 0-5 /HPF WBC 0-5 LAB URBC 0-3 /HPF RBC 0-3 LAB UBACT Negative /HPF Abnormal Bacteria Alert Trace LAB UEPI Occasional /HPF Epithelial Cells SEE COMMENT Result Comment: Occasional Squamous Epithelial Cells LAB UOTHER /HPF SEE Urine, Other COMMENT FOR EAST USE ONLY Result Comment: 2+ Mucous TOXICOLOGY SCREEN,UR Collected: 03/25/2018 Status: F Source: [place] 1:52 AM [facility] OTHER [place] REPOSITORY TYPE CODE TESTS RESULT OUT OF REFERENCE UNITS RANGE LAB UPCP2 Negative Negative Phencyclidin e, Urine Result Comment: Cutoff threshold at 25 ng/mL. LAB UBENZ2 Negative Benzodiazepines, Ur Abnormal Preliminary Alert positive. Result Comment: Cutoff threshold at 200 ng/mL. LAB UCOC2 Negative Cocaine, Negative Urine Result Comment: Cutoff threshold at 300 ng/mL. LAB UAMPH2 Negative Amphetamines, Urine Negative Result Comment: Cutoff threshold at 1000 ng/mL. LAB UTHC2 Negative Cannabinoids, Urine Negative Result Comment: Cutoff threshold at 50 ng/mL. LAB UOPI2 Negative Opiates, Negative Urine Result Comment: Cutoff threshold at 300 ng/mL. LAB UBARB2 Negative Barbiturates, Urine Negative Result Comment: Cutoff threshold at 200 ng/mL. LAB UETOH <11 mg/dL <11 Ethanol, Urine LAB UOXYC Negative Oxycodone, Negative Urine Result Comment: Cutoff threshold at 100 ng/mL. Comment: Immunoassay screen only. Cross reactivity with other substances can occur with immunoassay screening. Detection of any drug(s) in this urine toxicology panel is presumptive only. These tests are for med ical purposes only and should not be used for compliance monitoring, legal, or forensic use. Samples should be within normal physiological conditions (e.g. pH). This assay does not include adulteration/specimen validity testing. In clinical settings, confirmatory testing is at the practitioner's discretion [1]. If clinically indicated, confirmation by high specificity, quantitative methodology, which includes adulteration/spec imen validity testing, may be requested on the same specimen through Client Services ([phone]) if contacted within 48 hours of initial testing. [1]Substance Abuse and Mental Health Services Administration (2012). Clinical Drug Testing in Primary Care Technical Assistance Publication Series 32. Department of Health and Human Services, [place], p.10. Observed: 03/25/2018 Status: F Source: [place] URINE CULTURE 1:51 AM [facility] OTHER [place] REPOSITORY Sp. Request/Comment: - Specimen received in preservative Culture Result - 10,000 - <50,000 CFU/ml Normal urogenital damon Performed By: #### URCUL #### [facility] [address] [place], [place] [address] ED NOTE Observed: 03/25/2018 Status: COMPLETED Source: [place] 1:35 AM [facility] OTHER [place] REPOSITORY HNO ID: [id number] Author: Aleks (Rn) ABIODUN Cantor Service: (none) Author Type: Registered Nurse Type: ED Notes Filed: 03/25/2018 3:57 AM Note Text: Pt informed that we still need a urine sample. Pt states that she has trouble going and that she may not be able to. Pt informed we may have to straight cath her. Pt was agreeable to this. CBC AND DIFFERENTIAL Collected: 03/25/2018 Status: F Source: [place] 12:24 AM [facility] OTHER [place] REPOSITORY TYPE CODE TESTS RESULT OUT OF REFERENCE UNITS RANGE LAB WBC 3.70-11.00 k/uL WBC 10.07 LAB RBC 3.90-5.20 m/uL RBC 4.25 LAB HGB 11.5-15.5 g/dL Hemoglobin 13.3 LAB HCT 36.0-46.0 % Hematocrit 39.9 LAB MCV 80.0-100.0 fL MCV 93.9 LAB MCH 26.0-34.0 pG MCH 31.3 LAB MCHC 30.5-36.0 g/dL MCHC 33.3 LAB RDWCV 11.5-15.0 % RDW-CV 12.2 LAB PLTCT 150-400 k/uL Platelet Count 286 LAB MPV 9.0-12.7 fL MPV 9.8 LAB ANEUT % Neut% 64.5 LAB AANEUT 1.45-7.50 k/uL Abs Neut 6.50 LAB ALYMP % Lymph% 27.6 LAB AALYMP 1.00-4.00 k/uL Abs Lymph 2.78 LAB AMONO % [place]% 5.1 LAB AAMONO <0.87 k/uL Abs [place] 0.51 LAB AEOS % Eosin% 2.4 LAB AAEOS <0.46 k/uL Abs Eosin 0.24 LAB ABASO % Baso% 0.4 LAB AABASO <0.11 k/uL Abs Baso 0.04 LAB DTYP DTYPE Auto Diff COMP METABOLIC PANEL Collected: 03/25/2018 Status: F Source: [place] 12:24 AM [facility] OTHER CAMPUS REPOSITORY TYPE CODE TESTS RESULT OUT OF REFERENCE UNITS RANGE LAB TP 6.3-8.0 g/dL Protein, Total 7.5 LAB ALB 3.9-4.9 g/dL Albumin 4.1 LAB CA 8.6-10.0 mg/dL Calcium, Total 9.1 LAB TBIL 0.2-1.3 mg/dL Bilirubin, Total 0.3 LAB ALKP 36-108 U/L Alkaline High Phosphatase 110 LAB AST 13-35 U/L AST 19 LAB GLU 74-99 mg/dL Glucose 90 LAB BUN 7-21 mg/dL BUN 17 LAB CRET 0.58-0.96 mg/dL Creatinine 0.72 LAB NA 136-144 mmol/L Sodium 142 LAB K 3.7-5.1 mmol/L Potassium 3.8 LAB CL 97-105 mmol/L Chloride 104 LAB CO2 22-33 mmol/L CO2 26 LAB AGAP 9-18 mmol/L Anion Gap 12 LAB ALT 7-38 U/L ALT 18 LAB GFRAA eGFR- >60 Amer. LAB GFRNAA . eGFR-All Other Races >60 Result Comment: eGFR (Estimated GFR) Units of measure: mL/min/1.73 meters squared eGFR is derived from the reexpressed MDRD Study equation using the following parameters: serum creatinine, age, gender and race. The creatinine assay has been calibrated to be traceable to IDAR. An eGFR <60 mL/min/1.73m2 for >3 months is consistent with chronic kidney disease. Refer to KDOQI guidelines for clinical interpretation. In patients with unstable renal function, e.g. those with acute kidney injury, the eGFR may not accurately reflect actual GFR. ETHANOL Collected: 03/25/2018 Status: F Source: [place] 12:24 AM [facility] OTHER CAMPUS REPOSITORY TYPE CODE TESTS RESULT OUT OF REFERENCE UNITS RANGE LAB ALCO <11 mg/dL Ethanol <11 MAGNESIUM Collected: 03/25/2018 Status: F Source: [place] 12:24 AM [facility] OTHER CAMPUS REPOSITORY TYPE CODE TESTS RESULT OUT OF REFERENCE UNITS RANGE LAB MG 1.7-2.6 mg/dL Magnesium 2.0 TSH Collected: 03/25/2018 Status: F Source: [place] 12:24 AM [facility] OTHER CAMPUS REPOSITORY TYPE CODE TESTS RESULT OUT OF RANGE REFERENCE UNITS LAB TSH 0.400-5.500 uU/mL TSH 2.740 Result Comment: If the patient is , TSH reference range varies by gestational period: First Trimester 0.100-2.500 uU/mL Second Trimester 0.200-3.000 uU/mL Third Trimester 0.300-3.000 uU/mL References: 1. Joshi L, Vitaly M, Aleks LU, et al. Management of Thyroid Dysfunction during and : An Endocrine Society Clinical Practice Guideline. J Clin Endocrinol Metab, 2012:97:0896-7684. 2. Ulysses MCKENNA. Overview of thyroid disease in . UpToDate. 2016. Accessed on January 30, 2016. ED NOTE Observed: 03/25/2018 Status: COMPLETED Source: [place] 12:05 AM [facility] OTHER CAMPUS REPOSITORY HNO ID: [id number] Author: Aleks Alcantar) ABIODUN Cantor Service: (none) Author Type: Registered Nurse Type: ED Notes Filed: 03/25/2018 1:35 AM Note Text: Second IV attempted via ultra unsuccefully. ED attending aware no IV has been obtained but blood work has been collected and sent. CT BRAIN WO IVCON Observed: 03/24/2018 Status: F Source: [place] 11:52 PM [facility] OTHER CAMPUS REPOSITORY * * *Final Report* * * DATE OF EXAM: Mar 24 2018 11:52PM [facility] 0504 - CT BRAIN WO IVCON / PROCEDURE REASON: Confusion, acute, unexplained * * * * Physician Interpretation * * * * RESULT: COMPARISONS: 11/23/2017. HISTORY: Acute and expanded confusion. TECHNIQUE: Head CT without contrast. MQ: [id number] CT Dose-Length Product (DLP): 770 mGy*cm CT Dose Reduction Employed: No dose reduction techniques were required RESULT: HEAD CT: Age expected stable and unremarkable sulci, gyri, ventricles, CSF spaces and brain. No acute infarct/hemorrhage, mass effect or collections. Normal bones and soft tissues. IMPRESSION: Age-appropriate stable and unremarkable head CT. Transcribed Using Voice Recognition Transcribe Date/Time: Mar 24 2018 11:56P Dictated by: LIZANDRO COLE MD This examination was interpreted and the report reviewed and electronically signed by: LIZANDRO COLE MD on Mar 24 2018 11:56PM EST [id number] ED NOTE Observed: 03/24/2018 Status: COMPLETED Source: [place] 11:45 PM [facility] REPOSITORY HNO ID: [id number] Author: Aleks (Rn) ABIODUN Cantor Service: (none) Author Type: Registered Nurse Type: ED Notes Filed: 03/25/2018 12:20 AM Note Text: IV attempted unsuccessfully. ED PROV NOTE Observed: 03/24/2018 Status: COMPLETED Source: [place] 11:11 PM [facility] REPOSITORY HNO ID: [id number] Author: Best Parker DO Service: (none) Author Type: Physician Type: ED Provider Notes Filed: 03/25/2018 3:01 AM Note Text: ED Provider Note Patient Name: Edgardo Denson SERVICE DATE: 03/24/18 History Patient presents with: Slurred Speech 55-year-old female presents for evaluation of generalized weakness and slurred speech that has been present for the last 3 days. The patient's daughter is at bedside states that her mother suffers from chronic pain and is on opiates. She states that because of slurred speech and lethargy she took her pain medication away from her thinking this was the cause hoping that she will return to baseline. She states the only other time she got similar symptoms to this in the past was when she suffered from a urinary tract infection and became delirious. The patient states at this time she does not believe she has slurred speech but has double vision. The patient denies a headache, fever, chills, nausea or vomiting. The patient denies any new rashes, abdominal pain, dizziness or lightheadedness. History provided by: Patient and relative PAST MEDICAL HISTORY Diagnosis Date - Asthma - Cellulitis and abscess of leg, except foot 03/01/2007 Orig Leg issue 1996 - Chronic pain syndrome 05/27/2008 Post-herpetic Neuralgia - Depression, reactive - DJD (degenerative joint disease), cervical - Esophageal reflux Hemorrhagic gastritis / hx GI - Headache - Muscle spasm BZD - Other convulsions 02/25/2009 - PE (pulmonary embolism) 07/2006 - PMH - PAST MEDICAL HISTORY OF 07/19/2005 h/o right leg DVT, PE, s/p IVC filter - PMH - PAST MEDICAL HISTORY OF 2005 h/o Osteomyelitis infection - Sleep disturbance, unspecified sleep study 12/21 didn't show sleep apnea but some central apneas - Syncope Dr. 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 PAST SURGICAL HISTORY Procedure Laterality Date - DELIVERY ONLY , low transverse - COLONOSCOP W/ OR W/O [facility] SPEC Colonoscopy - EGD W/O OR W/BRUSH/WASH EGD - LAPAROSCOPIC CHOLEYCYSTECTOMY Cholecystectomy, lap - PAST SURGICAL HISTORY OF 07/20 s/p IVC filter by Dr. Mcpherson - PAST SURGICAL HISTORY OF leg debridements for MRSA FAMILY HISTORY Problem Relation Age of Onset - Ischemic Heart Disease Mother - Stroke Mother - Diabetes Father - renal cell cancer [OTHER] Father Testical cancer, primary renal cancer - testicular cancer [OTHER] Father - Lipids Sister - Lipids Brother - Colon Cancer Paternal Grandmother - stomach cancer [OTHER] Paternal Grandmother - Breast Cancer No Family History Social History Social History Main Topics - Smoking status: Current Every Day Smoker Packs/day: 0.50 Years: 12.00 Types: Cigarettes - Smokeless tobacco: Never Used Comment: Currently smokes two cigarettes a day - Alcohol use No - Drug use: No - Sexual activity: Not Currently ALLERGIES Allergen Reactions - Cellacefate Swelling - Depakote [Divalproe* GI Upset - Dilantin [Phenytoin* GI Upset - Fish Containing Pro* Unknown - Penicillin G GI Upset tolerates zosyn . sdm. 03/2007 TOLERATES KEFLEX 11-12-10 - Shrimp Unknown - Sulfa (Sulfonamide * GI Upset Gastritis - Topamax [Topiramate] Mental Status Change - Haldol [Haloperidol] Mental Status Change, Cough, GI Upset, Itching Review of Systems Constitutional: Positive for activity change, appetite change and fatigue. Negative for chills and fever. Eyes: Positive for visual disturbance. Respiratory: Positive for cough. Negative for chest tightness, shortness of breath and wheezing. Cardiovascular: Negative for chest pain, palpitations and leg swelling. Gastrointestinal: Negative for abdominal pain, nausea and vomiting. Genitourinary: Negative for difficulty urinating and flank pain. Neurological: Negative for dizziness, syncope, speech difficulty, weakness, light-headedness, numbness and headaches. Psychiatric/Behavioral: The patient is nervous/anxious. All other systems reviewed and are negative. Physical Exam There were no vitals taken for this visit. Physical Exam Constitutional: She is oriented to person, place, and time. No distress. HENT: Head: Normocephalic and atraumatic. Right Ear: External ear normal. Left Ear: External ear normal. Eyes: EOM are normal. Pupils are equal, round, and reactive to light. No scleral icterus. Monocular normal vision, binocular diplopia Neck: Normal range of motion. Cardiovascular: Normal rate, regular rhythm, normal heart sounds and intact distal pulses. Pulmonary/Chest: Effort normal and breath sounds normal. Abdominal: Soft. Bowel sounds are normal. Musculoskeletal: Normal range of motion. She exhibits tenderness. Neurological: She is alert and oriented to person, place, and time. No cranial nerve deficit or sensory deficit. She exhibits normal muscle tone. Coordination abnormal. Symmetrical weakness of bilateral lower extremities. Skin: Skin is warm and dry. Capillary refill takes less than 2 seconds. No rash noted. No erythema. Psychiatric: Her behavior is normal. Nursing note and vitals reviewed. Diagnostic Testing ED Labs Ordered and Reviewed - No data to display Procedures ED Course / Clinical Impression ED Course as of Mar 25 036 Best Saul Elena's Documentation TueMar 24, 2018 5963 ED EKG INTERPRETATION: Normal sinus rhythm at 90 beats per minute Normal axis Normal intervals Normal ST-T segments No change compared to prior EKG's Clinical Impressions as of Mar 25 255 Flank pain Diplopia Altered level of consciousness MDM / Disposition / Plan This 52-year-old female with multiple medical problems including chronic pain syndrome who presents emergency department for multiple complaints for which they keep changing. The patient has diplopia which is binocular. I have offered eye patch to the patient so that she needs monocular vision and not have diplopia but she refuses. The patient states now that she suffered a fall last week. I do see in the medical record that she contacted her primary care physician and has an appointment on Tuesday stating a similar complaint. When challenged about this the patient now states that the fall was approximately 2 weeks ago. The patient states that she has right flank pain and tenderness that was not from any injury or trauma but again relates to me that she suffered a fall and this may be the source of her pain. The patient is inconsistent on both her neurologic and musculoskeletal examinations. The patient has transient weakness that then resolves. The patient has abnormal coordination which then resolves. The patient that I'm concerned about her diplopia and that we can cover one of her eyes in order to provide her better visual acuity temporarily and have her follow with ophthalmology as outpatient. Upon receiving this information the patient became very upset and was threatening to myself and staff. Discussion was had with the patient's daughter who agrees to come and pick her up. According to the patient's daughter she has not received her pain medicine in 3 days because she has not been acting appropriate. The patient is not suicidal or homicidal. The patient's daughter understands that she should allow her mother take her medication as prescribed. The patient has an outpatient plan with primary medicine on Tuesday and can follow with her neurologist. Recommendation for ophthalmology will be provided. Disposition The patient was discharged. Counseled family and patient regarding radiology results and lab results. As well as the need for follow-up. Discharged home with verbal and written instructions. They were instructed to return as needed for persistent or worsening symptoms or any new concerns. Condition at disposition is stable. SIGNATURE: DO Best Encarnacion DO 03/25/18 0301 XR CHEST 1V FRONTAL Observed: 03/24/2018 Status: F Source: [facility] 11:08 PM CLINIC OTHER CAMPUS REPOSITORY * * *Final Report* * * DATE OF EXAM: Mar 24 2018 11:08PM HCX [id number] - XR CHEST 1V FRONTAL PORT / PROCEDURE REASON: Chest pain or SOB, pleurisy or effusion suspected * * * * Physician Interpretation * * * * RESULT: EXAMINATION: CHEST RADIOGRAPH (SINGLE VIEW AP OR PA) Clinical History: Chest pain or SOB, pleurisy or effusion suspected M: [id number]_4 Comparison: 11/23/2017 RESULT: Lines, tubes, and devices: None. Lungs and pleura: Lungs are clear of consolidation. Lung hyperinflation with emphysematous changes. No pneumothorax. Cardiomediastinal silhouette: Normal size and contour. Other: N/A IMPRESSION: No acute findings. Emphysema. Transcribed Using Voice Recognition Transcribe Date/Time: Mar 24 2018 11:10P Dictated by: REZA CISNEROS MD This examination was interpreted and the report reviewed and electronically signed by: REZA CISNEROS MD on Mar 24 2018 11:12PM EST [id number] EKG (AK,AV,EU,FV,HL,ANGELES,MM,SP) Observed: Status: F Source: [place] 03/24/2018 10:44 [facility] OTHER CAMPUS REPOSITORY NAME : EDGARDO DENSON PID : [id number] : 1965 Gender : Female Race : ORD : [id number] Procedure Date : Mar 24 2018 22:44:50 Edit Date : Mar 26 2018 19:17:02 Diagnosis:NORMAL SINUS RHYTHM NORMAL ECG WHEN COMPARED WITH ECG OF 23-NOV-2017 23:25, NO SIGNIFICANT CHANGE WAS FOUND Confirmed by MARK GORDON M.D. ([id number]) on 03/26/2018 7:16:51 PM Ventricular Rate : 90 BPM Atrial Rate : 90 BPM P-R Interval : 116 ms QRS Duration : 78 ms Q-T Interval : 366 ms QTC Calculation(Bezet) : 447 ms P [place] : 70 degrees R [place] : 58 degrees T [place] : 48 degrees Test Reason : Arrhythmia Location : 26 : ER L ED Overread By : MARK GORDON M.D. Edited By : MARK GORDON M.D. Referred By : , Acquired by : BRAD Observed: 03/20/2018 Status: COMPLETED Source: [place] 12:00 AM [facility] REPOSITORY Telephone (FAMPBD) EDGARDO DENSON ([id number]) 1965 F Date Time Provider Department 03/20/18 RYAN CASTANO During your visit today, we recorded the following information about you: Miriam Mccallum Psr 03/20/2018 1:27 PM Signed Edgardoericka Denson is calling Ryan Castano MD today with concern regarding kidney pain/ leg cramping and sores on her shoulder that aren't healing Patient has been identified by name and birthdate. Duration of symptoms: N/A Person calling: daughter: Lindsey Call patient at: [phone] (home) [phone] (cell) Was an appointment scheduled: No Closing statement: Symptom Call: Thank you for calling [facility], your call is very important. A nurse will call in approximately 2-4 hours during business hours. If this is an emergency, please contact 911. Miriam Mccallum Psr Andrea Odonnell RN 03/20/2018 4:47 PM Signed Spoke with Lindsey. States she will call back. Andrea Marlow Psr 03/22/2018 5:43 PM Signed Patient calling regarding right kidney pain Please advise Andrea Odonnell RN 03/22/2018 6:34 PM Signed LMTCB Andrea Odonnell RN 03/22/2018 6:59 PM Signed Spoke with Patient. C/O Right kidney pain x few weeks. Starts in the kidney goes up. Said yes to fever / chills. Don't have a thermometer. Nauseated. Denies dysuria. Rates pain 7/10. Having a hard time walking cause of the pain. Percocet not touching it. Asking to be seen. Have opening Tuesday? Please advise Thank you. Andrea Castano MD 03/22/2018 7:15 PM Signed Same day [place] Andrea Odonnell RN 03/22/2018 7:20 PM Signed Please call and schedule per below. Thank you. Andrea Limon 03/23/2018 8:48 AM Signed LMTCB Zaira VeneciaJessicaRuth Psr 03/23/2018 12:32 PM Signed Patient scheduled per below, first available March 27 with PCP. Patient states she will be able to make it until Tuesday. Please call Edis Moses RN 03/23/2018 1:50 PM Signed Called and left message for patient to return call. Edis Moses RN Allergies As of Date: 03/20/2018 Noted Allergy Reaction CELLACEFATE 01/07/2006 7 - Swelling DEPAKOTE (DIVALPROEX SODIUM) 01/07/2006 8 - GI Upset DILANTIN (PHENYTOIN SODIUM EXTEND*06/03/2015 8 - GI Upset FISH CONTAINING PRODUCTS 05/13/2015 16 - Unknown PENICILLIN G 01/07/2006 8 - GI Upset Comments: tolerates zosyn . sdm. 03/2007 TOLERATES KEFLEX 3-31-11 SHRIMP 05/13/2015 16 - Unknown SULFA (SULFONAMIDE ANTIBIOTICS) 05/17/2007 8 - GI Upset Comments: Gastritis TOPAMAX (TOPIRAMATE) 05/21/2009 1 - Mental Status Change HALDOL (HALOPERIDOL) 02/03/2008 1 - Mental Status Change 3 - Cough 8 - GI Upset 9 - Itching Date Reviewed: 01/02/2018 Reviewed by: Ruth Roe MA - Fully Assessed Reason for Visit: kidney pain/ leg cramping [Other] Prescriptions as of 03/20/2018 Sig: CLONAZEPAM 0.5 MG TABLET Take 1 tablet by mouth three * OXYCODONE-ACETAMINOPHEN 5 MG-* 1 po q4h prn breakthrough anthony* DABIGATRAN ETEXILATE 150 MG C* Take 1 capsule by mouth twice* SPIRONOLACTONE 25 MG TABLET Take 1 tablet by mouth once d* VENLAFAXINE ER 150 MG CAPSULE* Take 2 capsules by mouth once* PROMETHAZINE 25 MG TABLET Take 1 tablet by mouth every * POTASSIUM CHLORIDE ER 20 MEQ * Take 1 tablet by mouth every * GABAPENTIN 300 MG CAPSULE take 3 capsules by mouth thre* COMPOUNDED PRESCRIPTION Low Dose Naltrexone 2 mg cap* BACLOFEN 10 MG TABLET Take 0.5-1 tablets by mouth o* DABIGATRAN ETEXILATE 150 MG C* Take 1 capsule by mouth twice* DICYCLOMINE 20 MG TABLET Take 1 tablet by mouth four t* OMEPRAZOLE 20 MG CAPSULE,VENESSA* Take 1 capsule by mouth once * FLUTICASONE 500 MCG-SALMETERO* Inhale 1 Puff as instructed t* LOPERAMIDE 2 MG CAPSULE Take 1 capsule by mouth as ne* CETIRIZINE 10 MG CAPSULE Take by mouth once daily. ERGOCALCIFEROL (VITAMIN D2) 5* Take 1 capsule by mouth every* Problem List As Of Date 03/20/2018 Noted Resolved Cellulitis and abscess of leg, except foot [L03*INVALID FOR*02/25/2017 Methicillin susceptible Staphylococcus aureus i*INVALID FOR*02/25/2017 Pseudomonas infection in conditions classified *INVALID FOR*02/25/2017 Edema [R60.9] INVALID FOR*08/31/2017 Reflex sympathetic dystrophy of lower limb [G90*INVALID FOR* Psoas muscle abscess (HCC) [K68.12] INVALID FOR*02/25/2017 More... Candidiasis of unspecified site [B37.9] INVALID FOR*08/31/2017 More... Other streptococcus infection in conditions cla*INVALID FOR*02/25/2017 More... Bacteremia [R78.81] INVALID FOR*02/25/2017 Other lymphedema [I89.0] INVALID FOR*02/25/2017 Chronic pain syndrome [G89.4] INVALID FOR* Opioid type dependence, continuous (HCC) [F11.2*INVALID FOR* TOBACCO USE DISORDER [F17.200] Other convulsions [R56.9] INVALID FOR*02/25/2017 Priority: Moderate Sleep Hypovent Oth Dis [G47.36] INVALID FOR* Priority: Mild HYPOPOTASSEMIA [E87.6] INVALID FOR*02/28/2009 Priority: Moderate VENA CAVA THROMBOSIS [I82.220] INVALID FOR* Anemia, unspecified [D64.9] INVALID FOR*10/31/2017 Embolism and thrombosis (HCC) [I74.9] INVALID FOR*02/25/2017 Priority: B More... Other Pulmonary Embolism and Infarction [I26.99]INVALID FOR* Encounter for Long-Term (Current) Use of Antico*INVALID FOR* More... Left leg pain [M79.605] INVALID FOR*02/25/2017 Muscle spasm [M62.838] INVALID FOR* Leg pain [M79.606] INVALID FOR*02/25/2017 Depression, reactive [F32.9] 02/25/2017 More... Iron defic anemia NEC INVALID FOR*10/31/2017 Agitation [R45.1] INVALID FOR*02/25/2017 Other chronic pain [G89.29] INVALID FOR*12/03/2017 Priority: F More... Altered mental status [R41.82] INVALID FOR*05/19/2016 Chemical dependency (HCC) [F19.20] INVALID FOR* SUMMARY INVALID FOR*02/25/2017 Priority: A More... Left arm weakness [R29.898] INVALID FOR* Priority: B More... Chest pain [R07.9] INVALID FOR*10/31/2017 Priority: A More... Cellulitis [L03.90] INVALID FOR*02/25/2017 Priority: D More... Depression [F32.9] INVALID FOR* Priority: D More... Lethargy [R53.83] INVALID FOR* More... Seizure disorder (HCC) [G40.909] INVALID FOR*11/12/2017 More... Low BP [I95.9] INVALID FOR*08/31/2017 More... DJD (degenerative joint disease), cervical [M50* Anxiety state, unspecified [F41.1] 04/22/2014 Pain [R52] INVALID FOR*08/31/2017 Priority: B More... Fever [R50.9] INVALID FOR*02/25/2017 Priority: C More... Delirium [R41.0] INVALID FOR*02/25/2017 Priority: A More... Hematemesis [K92.0] INVALID FOR*02/25/2017 Priority: C More... Emphysema of lung ([facility]) [J43.9] INVALID FOR* Smoker [F17.200] INVALID FOR*02/25/2017 Chronic deep vein thrombosis of left femoral ve*INVALID FOR* Vitamin D deficiency [E55.9] INVALID FOR* Psychosis [F29] INVALID FOR* GERD (gastroesophageal reflux disease) [K21.9] INVALID FOR* Asthma [J45.909] INVALID FOR* Orthostatic hypotension [I95.1] INVALID FOR*08/31/2017 More... Psychiatric disorder [F99] INVALID FOR* More... DVT (deep venous thrombosis) ([facility]) [I82.409] INVALID FOR*02/25/2017 [facility] current use of anticoagulant [Z79.01] INVALID FOR*02/25/2017 More... 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 Syncope [R55] INVALID FOR*08/31/2017 Intentional fentanyl overdose (HCC) [T40.4X2A] INVALID FOR*08/31/2017 Nausea [R11.0] INVALID FOR* Delusional disorder (HCC) [F22] INVALID FOR* More... Orthostasis [I95.1] INVALID FOR* Illicit drug use [F19.90] INVALID FOR* Phencyclidine (PCP) use disorder, moderate, dep*INVALID FOR* Psychogenic nonepileptic seizure [F44.5] INVALID FOR* Opacity of lung on imaging study [R91.8] INVALID FOR* More... Encounter Status:Closed by SERGIO LIMON on 03/23/18 CT CHEST WO IVCON Observed: 02/25/2018 Status: F Source: [place] 1:43 PM [facility]IN[facility] OTHER CAMPUS REPOSITORY * * *Final Report* * * DATE OF EXAM: Feb 25 2018 1:43PM [facility] 0541 - CT CHEST WO IVCON / PROCEDURE REASON: lung nodules * * * * Physician Interpretation * * * * RESULT: EXAMINATION: CHEST CT WITHOUT CONTRAST CLINICAL HISTORY: lung nodules Technique: Spiral CT acquisition of the chest from the thoracic inlet to the upper abdomen without contrast. MQ: CTCWOR_[id number] CT Dose-Length Product: 160 mGy*cm CT Dose Reduction Employed: Automated exposure control(AEC) and iterative recon Comparison: RESULT: Limitations: None. Lines, tubes, and devices: None. Lung parenchyma and pleura: There are moderately severe emphysematous changes with hyperinflation of the lungs. No pleural effusion. No infiltrate or lobar collapse. Minimal dependent atelectasis in the posterior left base. Nodular opacities in the right lower lobe have resolved. Thoracic inlet, heart, and mediastinum: No lymphadenopathy in the axillary, mediastinal, or hilar regions. Shotty lymph nodes in the axilla bilaterally The thoracic aorta and main pulmonary artery are normal in caliber. The cardiac chambers are normal in size. No coronary artery atherosclerotic calcifications are noted. No pericardial effusion or thickening. Bones and soft tissues: No destructive bone lesion. There are degenerative changes in the lumbar spine. Chest wall is unremarkable. Upper abdomen: There is an IVC filter present. Status post cholecystectomy. IMPRESSION: Moderately severe emphysematous changes with pulmonary hyperinflation. No lobar collapse, effusion or infiltrate Mild dependent atelectasis in the posterior left lower lobe. Resolution of the nodular opacities in the right lower lobe since the prior exam. Transcribed Using Voice Recognition Transcribe Date/Time: Feb 25 2018 1:47P Dictated by: DEMOND EMMANUEL MD This examination was interpreted and the report reviewed and electronically signed by: DEMOND EMMANUEL MD on Feb 25 2018 1:52PM EST [id number] PROGRESS Observed: 01/02/2018 Status: COMPLETED Source: [place] 12:26 PM [facility] [place] REPOSITORY HNO ID: [id number] Author: Ryan Castano Service: (none) Author Type: Physician Type: Progress Notes Filed: 01/03/2018 10:55 AM Note Text: Edgardo Denson is a 52 year old female who presents to followup for med refills and after a recent hosp at . She was admitted with repeated vomiting with hematemesis and episodes of syncope. Data in Care Everywhere was reviewed; chemistry was normal, Hgb trended from 13.2 to 11.9 which is reduced from last check here; stool neg for OB. She did not have an EGD. She is requesting a phenergan refill; she prefers it to ondansetron. A 7.5 mm opacity was seen on CT C spine in the L apex and dedicated chest CT recommended. IMPRESSION: 1. The left lung apex has a 7.5 mm ground-glass opacity superimposed on emphysema. Full chest CT is recommended for further evaluation. She now is back to her regular diet and has had no vomiting. Appetite is down; she is drinking her usual Diet Pepsi. She had two loose BMs this am. She followed with Dr. Rae who restarted her Vimpat. As far as her pain, she was treated with hydrocodone in house and has used up most of her oxycodone so is essentially out as she was having inc pain. She states that she cannot sleep with the pain. Her hair is growing in! Lindsey delivered a baby girl with gastroschisis at 35 wks at home; the baby had surgery immediately, is now two weeks old and is already of the stepdown from the NICU. At the last visit with me on 12-02 the AANDP was as follows: 1. Other chronic pain - ICD9: 338.29, ICD10: G89.29 (primary diagnosis) I am continuing to taper her; will now reduce to 5 oxycodone per 24 hours for one month and review. - OXYCODONE-ACETAMINOPHEN 5 MG-325 MG TABLET - TOX SCREEN ROUT UR ? 2. Muscle spasm - ICD9: 728.85, ICD10: M62.838 Refill will reduce benzos after narcs down/stopped. - CLONAZEPAM 0.5 MG TABLET ? 3. Opioid type dependence, continuous (HCC) - ICD9: 304.01, ICD10: F11.20 check - TOX SCREEN ROUT UR ? 4. Phencyclidine (PCP) use disorder, moderate, dependence (HCC) - ICD9: 304.60, ICD10: F16.20 There can be false + tests with antipsychotics, ?phenergan. Have stopped prescribing this and off medlist. - TOX SCREEN ROUT UR ? Return in about 1 month (around 01/01/2018) for follow Christine. 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 Other Pulmonary Embolism and Infarction Longterm (Current) Use of Anticoagulants Muscle Spasm Chemical dependency (HCC) Left Arm Weakness Depression Lethargy Djd (Degenerative Joint Disease), Cervical Emphysema of Lung (Hcc) Chronic Deep Vein Thrombosis of Left Femoral Vein (Hcc) Vitamin D Deficiency Psychosis Gerd (Gastroesophageal Reflux Disease) Asthma Psychiatric Disorder Tubulovillous Adenoma of Colon Nausea Delusional Disorder (Hcc) Orthostasis Illicit Drug Use Phencyclidine (Pcp) Use Disorder, Moderate, Dependence (Hcc) Psychogenic Nonepileptic Seizure Current Outpatient Prescriptions on File Prior to Visit: gabapentin (NEURONTIN) 300 mg capsule take 3 capsules by mouth three times a day COMPOUNDED PRESCRIPTION Low Dose Naltrexone2 mg capsule (do not use calcium filler)Take one capsule by mouth at 9:00 PM every night baclofen (LIORESAL) 10 mg tablet Take 0.5-1 tablets by mouth once daily. lacosamide (VIMPAT) 100 mg tab Take 1 tablet by mouth twice daily for 30 days. clonazePAM (KLONOPIN) 0.5 mg tablet Take 1 tablet by mouth three times daily as needed for up to 30 days. oxyCODONE-acetaminophen (PERCOCET) 5-325 mg tablet 1 po q4h prn breakthrough pain (MAXIMUM 5 pills/day)Earliest Fill Date: 12/05/17 dabigatran etexilate (PRADAXA) 150 mg cap Take 1 capsule by mouth twice daily. venlafaxine ER (EFFEXOR XR) 150 mg 24 hr capsule Take 2 capsules by mouth once daily. dicyclomine (BENTYL) 20 mg tablet Take 1 tablet by mouth four times daily. PRADAXA 150 mg cap take 1 capsule by mouth twice a day potassium chloride 20 mEq TbER Take 1 tablet by mouth every Tuesday,Tuesday,Tuesday. (Patient taking differently: Take 1 tablet by mouth every Tuesday,Tuesday,Tuesday. Pt states that she takes it PRN ) omeprazole (PRILOSEC) 20 mg capsule Take 1 capsule by mouth once daily. fluticasone-salmeterol (ADVAIR DISKUS) 500-50 mcg/dose dsdv Inhale 1 Puff as instructed twice daily. RINSE AND GARGLE MOUTH WITH WATER AFTER EACH USE. spironolactone (ALDACTONE) 25 mg tablet Take 1 tablet by mouth once daily. (Patient taking differently: Take 25 mg by mouth once daily. Takes as needed ) loperamide (IMODIUM) 2 mg cap(s) Take 1 capsule by mouth as needed for Diarrhea. Cetirizine (ZYRTEC) 10 mg cap Take by mouth once daily. ergocalciferol, vitamin D2, (DRISDOL) 50,000 unit capsule Take 1 capsule by mouth every Tuesday. Indications: VITAMIN D DEFICIENCY No current facility-administered medications on file prior to visit. Physical Examination: BP 103/72 Pulse 99 Wt 56.2 kg (124 lb) BMI 21.28 kg/m? General appearance: Well appearing, alert, in no acute distress. Skin: her hair has substantially grown in Eye: No pallor or icterus Abdomen: Abdomen soft with diffuse mild tenderness and non-distended. Bowel sounds normal. No masses or organomegaly Mental Status:Alert, calm, attending well, expressing thanks for my care. ASSESSMENT/PLAN: 1. Hospital discharge follow-up - ICD9: V67.59, ICD10: Z09 (primary diagnosis) 2. Psychiatric disorder - ICD9: 300.9, ICD10: F99 She is much calmer today and not acting out in the office; I thanked her for same. - VENLAFAXINE ER 150 MG CAPSULE,EXTENDED RELEASE 24 HR 3. Chronic pain syndrome - ICD9: 338.4, ICD10: G89.4 refill - VENLAFAXINE ER 150 MG CAPSULE,EXTENDED RELEASE 24 HR 4. Other chronic pain - ICD9: 338.29, ICD10: G89.29 Will continue oxycodone at current level for now; reassess in 3 months; there is too much instability in the home with new baby in hospital to broach further reduction at this time - OXYCODONE-ACETAMINOPHEN 5 MG-325 MG TABLET 5. 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 Nausea - ICD9: 787.02, ICD10: R11.0 Refill small amount of - PROMETHAZINE 25 MG TABLET 8. Opacity of lung on imaging study - ICD9: 793.19, ICD10: R91.[address] chest. Ryan Castano MD CNOV Observed: 01/02/2018 Status: COMPLETED Source: [place] 11:40 AM [facility] REPOSITORY Office Visit (ALEXPBD) EDGARDO DENSON ([id number]) 1965 F Date Time Provider Department 01/02/18 11:40 AM CADESKY, RYAN FAMPBD During your visit today, we recorded the following information about you: Pulse Blood pressure Weight 99/minute 103/72 56.2 kg Ryan Castano MD 01/03/2018 10:55 AM Signed Edgardo Denson is a 52 year old female who presents to followup for med refills and after a recent hosp at . She was admitted with repeated vomiting with hematemesis and episodes of syncope. Data in Care Everywhere was reviewed; chemistry was normal, Hgb trended from 13.2 to 11.9 which is reduced from last check here; stool neg for OB. She did not have an EGD. She is requesting a phenergan refill; she prefers it to ondansetron. A 7.5 mm opacity was seen on CT C spine in the L apex and dedicated chest CT recommended. IMPRESSION: 1. The left lung apex has a 7.5 mm ground-glass opacity superimposed on emphysema. Full chest CT is recommended for further evaluation. She now is back to her regular diet and has had no vomiting. Appetite is down; she is drinking her usual Diet Pepsi. She had two loose BMs this am. She followed with Dr. Rae who restarted her Vimpat. As far as her pain, she was treated with hydrocodone in house and has used up most of her oxycodone so is essentially out as she was having inc pain. She states that she cannot sleep with the pain. Her hair is growing in! Lindsey delivered a baby girl with gastroschisis at 35 wks at home; the baby had surgery immediately, is now two weeks old and is already of the stepdown from the NICU. At the last visit with me on 12-02 the AANDP was as follows: 1. Other chronic pain - ICD9: 338.29, ICD10: G89.29 (primary diagnosis) I am continuing to taper her; will now reduce to 5 oxycodone per 24 hours for one month and review. - OXYCODONE-ACETAMINOPHEN 5 MG-325 MG TABLET - TOX SCREEN ROUT UR ? 2. Muscle spasm - ICD9: 728.85, ICD10: M62.838 Refill will reduce benzos after narcs down/stopped. - CLONAZEPAM 0.5 MG TABLET ? 3. Opioid type dependence, continuous (HCC) - ICD9: 304.01, ICD10: F11.20 check - TOX SCREEN ROUT UR ? 4. Phencyclidine (PCP) use disorder, moderate, dependence (HCC) - ICD9: 304.60, ICD10: F16.20 There can be false + tests with antipsychotics, ?phenergan. Have stopped prescribing this and off medlist. - TOX SCREEN ROUT UR ? Return in about 1 month (around 01/01/2018) for follow Christine. 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 Muscle Spasm Chemical dependency (HCC) Left Arm Weakness Depression Lethargy Djd (Degenerative Joint Disease), Cervical Emphysema of Lung (Hcc) Chronic Deep Vein Thrombosis of Left Femoral Vein (Hcc) Vitamin D Deficiency Psychosis Gerd (Gastroesophageal Reflux Disease) Asthma Psychiatric Disorder Tubulovillous Adenoma of Colon Nausea Delusional Disorder (Hcc) Orthostasis Illicit Drug Use Phencyclidine (Pcp) Use Disorder, Moderate, Dependence (Hcc) Psychogenic Nonepileptic Seizure Current Outpatient Prescriptions on File Prior to Visit: gabapentin (NEURONTIN) 300 mg capsule take 3 capsules by mouth three times a day COMPOUNDED PRESCRIPTION Low Dose Naltrexone2 mg capsule (do not use calcium filler)Take one capsule by mouth at 9:00 PM every night baclofen (LIORESAL) 10 mg tablet Take 0.5-1 tablets by mouth once daily. lacosamide (VIMPAT) 100 mg tab Take 1 tablet by mouth twice daily for 30 days. clonazePAM (KLONOPIN) 0.5 mg tablet Take 1 tablet by mouth three times daily as needed for up to 30 days. oxyCODONE-acetaminophen (PERCOCET) 5-325 mg tablet 1 po q4h prn breakthrough pain (MAXIMUM 5 pills/day)Earliest Fill Date: 12/05/17 dabigatran etexilate (PRADAXA) 150 mg cap Take 1 capsule by mouth twice daily. venlafaxine ER (EFFEXOR XR) 150 mg 24 hr capsule Take 2 capsules by mouth once daily. dicyclomine (BENTYL) 20 mg tablet Take 1 tablet by mouth four times daily. PRADAXA 150 mg cap take 1 capsule by mouth twice a day potassium chloride 20 mEq TbER Take 1 tablet by mouth every Tuesday,Tuesday,Tuesday. (Patient taking differently: Take 1 tablet by mouth every Tuesday,Tuesday,Tuesday. Pt states that she takes it PRN ) omeprazole (PRILOSEC) 20 mg capsule Take 1 capsule by mouth once daily. fluticasone-salmeterol (ADVAIR DISKUS) 500-50 mcg/dose dsdv Inhale 1 Puff as instructed twice daily. RINSE AND GARGLE MOUTH WITH WATER AFTER EACH USE. spironolactone (ALDACTONE) 25 mg tablet Take 1 tablet by mouth once daily. (Patient taking differently: Take 25 mg by mouth once daily. Takes as needed ) loperamide (IMODIUM) 2 mg cap(s) Take 1 capsule by mouth as needed for Diarrhea. Cetirizine (ZYRTEC) 10 mg cap Take by mouth once daily. ergocalciferol, vitamin D2, (DRISDOL) 50,000 unit capsule Take 1 capsule by mouth every Tuesday. Indications: VITAMIN D DEFICIENCY No current facility-administered medications on file prior to visit. Physical Examination: BP 103/72 Pulse 99 Wt 56.2 kg (124 lb) BMI 21.28 kg/m? General appearance: Well appearing, alert, in no acute distress. Skin: her hair has substantially grown in Eye: No pallor or icterus Abdomen: Abdomen soft with diffuse mild tenderness and non- distended. Bowel sounds normal. No masses or organomegaly Mental Status:Alert, calm, attending well, expressing thanks for my care. ASSESSMENT/PLAN: 1. Hospital discharge follow-up - ICD9: V67.59, ICD10: Z09 (primary diagnosis) 2. Psychiatric disorder - ICD9: 300.9, ICD10: F99 She is much calmer today and not acting out in the office; I thanked her for same. - VENLAFAXINE ER 150 MG CAPSULE,EXTENDED RELEASE 24 HR 3. Chronic pain syndrome - ICD9: 338.4, ICD10: G89.4 refill - VENLAFAXINE ER 150 MG CAPSULE,EXTENDED RELEASE 24 HR 4. Other chronic pain - ICD9: 338.29, ICD10: G89.29 Will continue oxycodone at current level for now; reassess in 3 months; there is too much instability in the home with new baby in hospital to broach further reduction at this time - OXYCODONE-ACETAMINOPHEN 5 MG-325 MG TABLET 5. 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 Nausea - ICD9: 787.02, ICD10: R11.0 Refill small amount of - PROMETHAZINE 25 MG TABLET 8. Opacity of lung on imaging study - ICD9: 793.19, ICD10: R91.[address] chest. MD Dolores Webb 01/03/2018 5:42 PM Signed Message has been read to daughter lindsey. Referring Provider: SELF [[id number]] Allergies As of Date: 01/02/2018 Noted Allergy Reaction CELLACEFATE 01/07/2006 7 - Swelling DEPAKOTE (DIVALPROEX SODIUM) 01/07/2006 8 - GI Upset DILANTIN (PHENYTOIN SODIUM EXTEND*06/03/2015 8 - GI Upset FISH CONTAINING PRODUCTS 05/13/2015 16 - Unknown PENICILLIN G 01/07/2006 8 - GI Upset Comments: tolerates zosyn . sdm. 03/2007 TOLERATES KEFLEX 3-31-11 SHRIMP 05/13/2015 16 - Unknown SULFA (SULFONAMIDE ANTIBIOTICS) 05/17/2007 8 - GI Upset Comments: Gastritis TOPAMAX (TOPIRAMATE) 05/21/2009 1 - Mental Status Change HALDOL (HALOPERIDOL) 02/03/2008 1 - Mental Status Change 3 - Cough 8 - GI Upset 9 - Itching Date Reviewed: 01/02/2018 Reviewed by: Ruth Roe MA - Fully Assessed Reason for Visit: Recheck [92] Sinus Problem [99] Primary Visit Diagnosis:Hospital discharge follow-up [Z09] Other Visit Diagnoses:Psychiatric disorder [F99] Chronic pain syndrome [G89.4] Other chronic pain [G89.29] Muscle spasm [M62.838] Trichotillomania [F63.3] Nausea [R11.0] Opacity of lung on imaging study [R91.8] Lung nodules [R91.8] Order(s):venlafaxine ER (EFFEXOR XR) 150 mg 24 hr capsuleTake 2 capsules by mouth once daily.Disp: 60 capsuleRfl: 0 [START ON 01/04/2018] oxyCODONE-acetaminophen (PERCOCET) 5-325 mg tablet1 po q4h prn breakthrough pain (MAXIMUM 5 pills/day) Earliest Fill Date: 01/04/18Disp: 150 tabletRfl: 0 [START ON 01/09/2018] clonazePAM (KLONOPIN) 0.5 mg tabletTake 1 tablet by mouth three times daily as needed for up to 30 days.Disp: 90 tabletRfl: 0 promethazine (PHENERGAN) 25 mg tabletTake 1 tablet by mouth every 8 hours as needed.Disp: 10 tabletRfl: 0 CT CHEST WO IVCON [[id number]] Order #: [id number] FUTURE Prescriptions as of 01/02/2018 Sig: VENLAFAXINE ER 150 MG CAPSULE* Take 2 capsules by mouth once* OXYCODONE-ACETAMINOPHEN 5 MG-* 1 po q4h prn breakthrough anthony* CLONAZEPAM 0.5 MG TABLET Take 1 tablet by mouth three * GABAPENTIN 300 MG CAPSULE take 3 capsules by mouth thre* COMPOUNDED PRESCRIPTION Low Dose Naltrexone 2 mg cap* BACLOFEN 10 MG TABLET Take 0.5-1 tablets by mouth o* LACOSAMIDE 100 MG TABLET Take 1 tablet by mouth twice * DABIGATRAN ETEXILATE 150 MG C* Take 1 capsule by mouth twice* DICYCLOMINE 20 MG TABLET Take 1 tablet by mouth four t* PRADAXA 150 MG CAPSULE take 1 capsule by mouth twice* POTASSIUM CHLORIDE ER 20 MEQ * Take 1 tablet by mouth every * Patient taking differently: Take 1 tablet by mouth every * OMEPRAZOLE 20 MG CAPSULE,VENESSA* Take 1 capsule by mouth once * FLUTICASONE 500 MCG-SALMETERO* Inhale 1 Puff as instructed t* SPIRONOLACTONE 25 MG TABLET Take 1 tablet by mouth once d* Patient taking differently: Take 25 mg by mouth once maryuri* LOPERAMIDE 2 MG CAPSULE Take 1 capsule by mouth as ne* CETIRIZINE 10 MG CAPSULE Take by mouth once daily. ERGOCALCIFEROL (VITAMIN D2) 5* Take 1 capsule by mouth every* PROMETHAZINE 25 MG TABLET Take 1 tablet by mouth every * Problem List As Of Date 01/02/2018 Noted Resolved Cellulitis and abscess of leg, except foot [L03*INVALID FOR*02/25/2017 Methicillin susceptible Staphylococcus aureus i*INVALID FOR*02/25/2017 Pseudomonas infection in conditions classified *INVALID FOR*02/25/2017 Edema [R60.9] INVALID FOR*08/31/2017 Reflex sympathetic dystrophy of lower limb [G90*INVALID FOR* Psoas muscle abscess (HCC) [K68.12] INVALID FOR*02/25/2017 More... Candidiasis of unspecified site [B37.9] INVALID FOR*08/31/2017 More... Other streptococcus infection in conditions cla*INVALID FOR*02/25/2017 More... Bacteremia [R78.81] INVALID FOR*02/25/2017 Other lymphedema [I89.0] INVALID FOR*02/25/2017 Chronic pain syndrome [G89.4] INVALID FOR* Opioid type dependence, continuous (HCC) [F11.2*INVALID FOR* TOBACCO USE DISORDER [F17.200] Other convulsions [R56.9] INVALID FOR*02/25/2017 Priority: Moderate Sleep Hypovent Oth Dis [G47.36] INVALID FOR* Priority: Mild HYPOPOTASSEMIA [E87.6] INVALID FOR*02/28/2009 Priority: Moderate VENA CAVA THROMBOSIS [I82.220] INVALID FOR* Anemia, unspecified [D64.9] INVALID FOR*10/31/2017 Embolism and thrombosis (HCC) [I74.9] INVALID FOR*02/25/2017 Priority: B More... Other Pulmonary Embolism and Infarction [I26.99]INVALID FOR* Encounter for Long-Term (Current) Use of Antico*INVALID FOR* More... Left leg pain [M79.605] INVALID FOR*02/25/2017 Muscle spasm [M62.838] INVALID FOR* Leg pain [M79.606] INVALID FOR*02/25/2017 Depression, reactive [F32.9] 02/25/2017 More... Iron defic anemia NEC INVALID FOR*10/31/2017 Agitation [R45.1] INVALID FOR*02/25/2017 Other chronic pain [G89.29] INVALID FOR*12/03/2017 Priority: F More... Altered mental status [R41.82] INVALID FOR*05/19/2016 Chemical dependency (HCC) [F19.20] INVALID FOR* SUMMARY INVALID FOR*02/25/2017 Priority: A More... Left arm weakness [R29.898] INVALID FOR* Priority: B More... Chest pain [R07.9] INVALID FOR*10/31/2017 Priority: A More... Cellulitis [L03.90] INVALID FOR*02/25/2017 Priority: D More... Depression [F32.9] INVALID FOR* Priority: D More... Lethargy [R53.83] INVALID FOR* More... Seizure disorder (HCC) [G40.909] INVALID FOR*11/12/2017 More... Low BP [I95.9] INVALID FOR*08/31/2017 More... DJD (degenerative joint disease), cervical [M50* Anxiety state, unspecified [F41.1] 04/22/2014 Pain [R52] INVALID FOR*08/31/2017 Priority: B More... Fever [R50.9] INVALID FOR*02/25/2017 Priority: C More... Delirium [R41.0] INVALID FOR*02/25/2017 Priority: A More... Hematemesis [K92.0] INVALID FOR*02/25/2017 Priority: C More... Emphysema of lung (HCC) [J43.9] INVALID FOR* Smoker [F17.200] INVALID FOR*02/25/2017 Chronic deep vein thrombosis of left femoral ve*INVALID FOR* Vitamin D deficiency [E55.9] INVALID FOR* Psychosis [F29] INVALID FOR* GERD (gastroesophageal reflux disease) [K21.9] INVALID FOR* Asthma [J45.909] INVALID FOR* Orthostatic hypotension [I95.1] INVALID FOR*08/31/2017 More... Psychiatric disorder [F99] INVALID FOR* More... 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 Syncope [R55] INVALID FOR*08/31/2017 Intentional fentanyl overdose (HCC) [T40.4X2A] INVALID FOR*08/31/2017 Nausea [R11.0] INVALID FOR* Delusional disorder (HCC) [F22] INVALID FOR* More... Orthostasis [I95.1] INVALID FOR* Illicit drug use [F19.90] INVALID FOR* Phencyclidine (PCP) use disorder, moderate, dep*INVALID FOR* Psychogenic nonepileptic seizure [F44.5] INVALID FOR* Visit Notes: >> Dolores Solorio January 03, 2018 5:41 PM Status: Signed Message has been read to daughter lindsey. Prescriptions ordered this encounter Disp Refills Start End VENLAFAXINE ER 150 MG CAPSULE,EXTEND* 60 c* 0 01/02/2018 Route: ORAL Sig: Take 2 capsules by mouth once daily. OXYCODONE-ACETAMINOPHEN 5 MG-325 MG * 150 * 0 01/04/2018 01/30/2018 Class: Print RX Si po q4h prn breakthrough pain (MAXIMUM 5 pills/day) Earliest Fill Date: 01/04/18 CLONAZEPAM 0.5 MG TABLET 90 t* 0 01/09/2018 02/08/2018 Class: Print RX Route: ORAL Sig: Take 1 tablet by mouth three times daily as needed for up to 30 days. PROMETHAZINE 25 MG TABLET 10 t* 0 01/02/2018 Route: ORAL Sig: Take 1 tablet by mouth every 8 hours as needed. Medications Discontinued During This Encounter venlafaxine ER (EFFEXOR XR) 150 mg 2* 60 c* 0 11/03/2017 01/02/2018 Route: ORAL Sig: Take 2 capsules by mouth once daily. Disc: Reason for discontinue is not on file. oxyCODONE-acetaminophen (PERCOCET) 5* 150 * 0 12/05/2017 01/02/2018 Class: Print RX Si po q4h prn breakthrough pain (MAXIMUM 5 pills/day) Earliest Fill Date: 12/05/17 Disc: Reason for discontinue is not on file. clonazePAM (KLONOPIN) 0.5 mg tablet 90 t* 0 12/05/2017 01/02/2018 Class: Print RX Route: ORAL Sig: Take 1 tablet by mouth three times daily as needed for up to 30 days. Disc: Reason for discontinue is not on file. Disposition: Return in about 3 months (around 04/04/2018) for follow Christine. Follow-up and Disposition History Recorded Encounter Status:Closed by RYAN CASTANO MD on 01/03/18 DAILY PROGRESS Observed: 12/28/2017 Status: COMPLETED Source: [facility] 6:10 PM [facility] Service: Medicine Subjective Data: EDGARDO DENSON is a 52 year old Female who is Hospital Day # 7. Additional Information: Patient continues to complain of nausea without vomiting and also chronic pain in her back, there is no shortness of breath. She she does not feel comfortable to be discharged for reasons that did not have clear support. I explained the majority of the findings were either normal or unremarkable for any significant pathology. REVIEW OF SYSTEMS: Constitutional; No fever, chills, anorexia, no weight loss Eyes: No blurry vision, no diplopia, no vision loss ENT: No nasal congestion, no earache , no sore throat Respiratory: No cough, no SOB, no hemoptysis , no wheezing Cardiac: No Chest Pain, no palpatations, no dyspnea on exertion, no orthopnea Gastrointestinal: No abdominal pain, c0 nausea, no vomiting, no diarrhea, melena, Genitourinary: No dysuria,no hematuria,no frequency, no urgency, no burning Musculoskeletal: No arthralgia, no myalgia, no weakness Skin: No Rash , no pruritis Endocrine: No heat or cold intolerance,no polyuria, no polydipsia Hematologic: No bruising, no rash Neurological: No dizziness,no light-headedness, no headache, no syncope Psychiatric: No anxiety, no depression, no hallucinations SOCIAL HISTORY : No smoking No alcohol use No drug abuse PHYSICAL EXAM: Constitutional: nomocephalic,atraumatic Ears no discharge , no tenderness Eyes no discharge , no tenderness ENT no LAP, no thyroid enlargement Lungs no crackles, no wheezing CV: no rubs, no murmurs GI: no tenderness,no guarding,cva negative Skin: no rash , no blisters Joints: no swelling , no pain Musculoskelatal: no muscle atrophy , no muscle tenderness Extremities: no edema, pulse+2 Neuro :no asterixis, no focal deficits Psych: no memory impairment , no cognition impirment Mood : no mood charge , no anxiety Objective Data: Objective Information: T P R BP SpO2 Value 36.2 70 18 114/72 95% Date/Time 12/28 8:00 12/28 8:00 12/28 8:00 12/28 8:00 12/28 8:00 Range (36.2C - 36.3C ) (70 - 76 ) (18 - 18 ) (98 - 114 )/ (62 - 72 ) (95% - 97% ) Pain with Activity reported at 12/27 20:00: 0 Pain at Rest reported at 12/28 8:00: 0 Assessment and Plan: Additional Dx: COPD exacerbation: Entered Date: 27-Dec-2017 13:07 Abdominal pain: Entered Date: 27-Dec-2017 13:07 Medical History: Pain, chronic: Entered Date: 21-Sep-2015 21:27 Allergic disorder: Entered Date: 11-Apr-2014 04:24 Chronic pain: Entered Date: 17-Oct-2013 03:59 Depression NOS: Entered Date: 12-Oct-2013 09:56 Migraine NOS (disorder): Entered Date: 12-Oct-2013 09:55 Seizure disorder (disorder): Entered Date: 12-Oct-2013 09:54 Pulmonary embolism: Entered Date: 12-Oct-2013 09:54 Fatigue: Onset Date: 04-Nov-2012, Entered Date: 04-Nov-2012 01:12 Other Dx/Proc: Deep Vein Thrombosis: Entered Date: 05-Nov-2012 13:16 Abdominal pain: Entered Date: 19-Mar-2010 16:29 Chronic obstructive pulmonary disease: Onset Date: 19-Mar-2010, Entered Date: 19-Mar-2010 09:56 Chronic obstructive pulmonary disease: Entered Date: 19-Mar-2010 09:56 Chronic obstructive pulmonary disease: Entered Date: 19-Mar-2010 09:56 Assessment: 1 generalized abdominal pain, resolved 2 COPD with exacerbation, resolved 3 persistent nausea vomiting, this is really questionable if it is real because there is no evidence of vomiting and she seems comfortable most of the times when nobody is present in the room 3 chronic back pain, her opioids were discontinued due to potential contribution to her nausea Plan Were explained the patient there is no medical issues that need to her to be in the hospitalized setting. We advised her to go home and follow with primary care physician, pain management and gastroenterology as an outpatient. Electronic Signatures: Flakito Mayes) (Signed 03-Jan-2018 17:18) Authored: Service, Subjective Data, Objective Data, Assessment and Plan, Signature/Cosignature/Attestation Last Updated: 03-Jan-2018 17:18 by Flakito Mayes) CLINICAL INTERVENTION - Observed: 12/28/2017 Status: UNK Source: [facility] 11:31 AM [facility] REPOSITORY Pharmacist's Clinical Intervention: Type of recommendation: Discharge Electronic Signatures: Mary Ramos (PharmD) (Signed 28-Dec-2017 11:32) Authored: Pharmacist's Clinical Intervention Last Updated: 28-Dec-2017 11:32 by Mary Ramos (PharmD) DISCHARGE SUMMARY Observed: 12/27/2017 Status: COMPLETED Source: [facility] 1:08 PM [facility] REPOSIT[facility] Send Summary: Discharge Summary Providers: Provider Role Provider Name ? Consulting Brittany Louis ? Consulting Malik Paul ? Primary Ilia, Darinel Jesus Note Recipients: Brittany Louis MD Jasper, John Jay, MD Podprudence, Darinel Jesus, - [phone] [left CC, unable to locate] Discharge: Summary: Admission Date: .22-Dec-2017 14:06:00 Discharge Date: 27-Dec-2017 Attending Physician at Discharge: Flakito Mayes Admission Reason: vomiting blood(1) Final Discharge Diagnoses: Generalized abdominal pain, persistent nausea vomiting, major depressive disorder, chronic pain syndrome due to fibromyalgia and anxiety due to PTSD, falls Procedures: none Condition at Discharge: Satisfactory Disposition at Discharge: .Home Physical Exam: PHYSICAL EXAM: Constitutional: nomocephalic,atraumatic Ears no discharge , no tenderness Eyes no discharge , no tenderness ENT no LAP, no thyroid enlargement Lungs no crackles, no wheezing CV: no rubs, no murmurs GI: no tenderness,no guarding,cva negative Skin: no rash , no blisters Joints: no swelling , no pain Musculoskelatal: no muscle atrophy , no muscle tenderness Extremities: no edema, pulse+2 Neuro :no asterixis, no focal deficits Psych: no memory impairment , no cognition impirment Mood : no mood charge , no anxiety Hospital Course: Patient comes to the ED due to abdominal pain and persistent nausea and vomiting, CAT scan abdomen showed suspicion for possible partial small bowel obstruction versus ileus, was stated with progressive advance of breathing from clear liquid diet to regular floor which she is tolerating well prior to discharge. She had a very slow recovery. She had change in mental status that required a psychiatry evaluation, there was concern for opiate side effects, subsequently her fentanyl patch and Dilaudid were discontinued, however she was continued on Percocet. Psychiatry also suggested to increase Klonopin to 1 mg 3 times a day when necessary to prevent benzodiazepines withdrawal. Patient will be discharged home in stable cardiac respiratory and psychiatric and neurological condition. Immunizations: Immunizations: 15-Oct-2013 .Influenza- Influenza Virus: Immunizations, 15-Oct-2013 .Pneumonia- Pneumococcal polysaccharide vaccine-adult: Immunizations, 06-Apr-2013 Discharge Information: and Continuing Care: Discharge Instructions: Activity: activity as tolerated. Nutrition/Diet: regular Follow Up Appointments: Follow-Up Appointment 01: Physician/Dept/Service: PCP Dr. Ryan Castano Reason for Referral: follow up hospitalization and medication management Follow-up with primary care physician in the 5-7 days Discharge Medications: Home Medication loratadine 10 mg oral tablet - 1 tab(s) orally once a day PriLOSEC OTC 20 mg oral delayed release capsule - 1 cap(s) orally once a day Effexor - 300 milligram(s) orally once a day Pradaxa 150 mg oral capsule - 1 cap(s) orally 2 times a day gabapentin 300 mg oral capsule - 3 cap(s) orally 3 times a day PRN Medication Benadryl 25 mg oral tablet - 25 milligram(s) orally 3 times a day, As Needed potassium chloride 20 mEq oral tablet, extended release - 1 tab(s) orally , As Needed Percocet 5/325 oral tablet - 1 tab(s) orally every 6 hours, As Needed Aldactone 25 mg oral tablet - orally , As Needed KlonoPIN 0.5 mg oral tablet - 0.5 milligram(s) orally every 8 hours, As Needed - for agitation Zantac 150 oral tablet - 1 tab(s) orally 2 times a day, As Needed Lomotil 2.5 mg-0.025 mg oral tablet - 2 tab(s) orally 4 times a day, As Needed Lab Results - Pending: None Radiology Results - Pending: None Electronic Signatures: Flakito Mayes) (Signed 27-Dec-2017 13:16) Authored: Send Summary, Summary Content, Immunizations, Ongoing Care, Signature/Cosignature/Attestation Last Updated: 27-Dec-2017 13:16 by Flakito Mayes) References: 1. Data Referenced From Consult - Psychiatry 12/26/2017 12:04 PM CBC Collected: 12/27/2017 Status: F Source: [facility] 5:25 AM [facility] REPOSITORY TYPE CODE TESTS RESULT OUT OF RANGE REFERENCE UNITS LAB WBCR(LOINC) 4.4 - 11.3 x10E9/L WBC 5.8 LAB RBCCT(LOINC 4.00 - 5.20 x10E12/L ) Low RBC 3.68 LAB HGB(LOINC) 12.0 - 16.0 g/dL Low HGB 11.9 LAB HCT(LOINC) 36.0 - 46.0 % Low HCT 33.6 LAB MCV(LOINC) 80 - 100 fL MCV 91 LAB MCHC2(LOINC 32.0 - 36.0 g/dL ) MCHC 35.4 LAB PLTCT(LOINC 150 - 450 x10E9/L ) PLT 276 LAB RDWCV(LOINC 11.5 - 14.5 % ) RDW-CV 13.2 Performed By: #### CBC #### [facility] [id number] [place] [address] [id number] COMPREHENSIVE PANEL Collected: 12/27/2017 Status: F Source: [place] [address] [place] [address] REPOSITORY TYPE CODE TESTS RESULT OUT OF REFERENCE UNITS RANGE LAB GLU(LOINC) 74 - 99 mg/dL GLUCOSE 95 LAB SOD(LOINC) 136 - 145 mmol/L SODIUM 142 LAB K(LOINC) 3.5 - 5.3 mmol/L Low POTASSIUM 3.4 LAB CHLOR(LOIN 98 - 107 mmol/L C) CHLORIDE 106 LAB BIC(LOINC) 21 - 32 mmol/L BICARBONATE 31 LAB ANGAP(LOIN 10 - 20 mmol/L C) Low ANION GAP 8 LAB UREA(LOINC 6 - 23 mg/dL ) UREA NITROGEN 10 LAB CREA(LOINC 0.50 - 1.05 mg/dL ) CREATININE 0.63 LAB GFRFN(LOIN >60 mL/min/1.7 C) 3m2 GFR-NON AM. >60 LAB GFRAA(LOIN >60 mL/min/1.7 C) 3m2 GFR- AM. >60 Result Comment: CALCULATIONS OF ESTIMATED GFR ARE PERFORMED USING THE MDRD STUDY EQUATION FOR THE IDMS-TRACEABLE CREATININE METHODS. CLIN CHEM 2007;53:766-72 LAB CA(LOINC) 8.6 - 10.3 mg/dL CALCIUM 8.8 LAB ALB(LOINC) 3.4 - 5.0 g/dL ALBUMIN 3.4 LAB AP(LOINC) 33 - 110 U/L ALKALINE PHOSPHATASE 92 LAB TP(LOINC) 6.4 - 8.2 g/dL TOTAL PROTEIN Low 6.1 LAB AST(LOINC) 9 - 39 U/L AST 21 LAB TBILI(LOINC) 0.0 - 1.2 mg/dL BILIRUBIN,TOTAL 0.2 LAB ALT(LOINC) 7 - 45 U/L ALT 21 Result Comment: Patients treated with Sulfasalazine may generate falsely decreased results for ALT. Performed By: #### CMP #### [address] [id number] CBC Collected: 12/26/2017 Status: F Source: [place] [address] [place] [address] REPOSITORY TYPE CODE TESTS RESULT OUT OF RANGE REFERENCE UNITS LAB WBCR(LOINC) 4.4 - 11.3 x10E9/L WBC 6.1 LAB RBCCT(LOINC 4.00 - 5.20 x10E12/L ) Low RBC 3.87 LAB HGB(LOINC) 12.0 - 16.0 g/dL HGB 12.4 LAB HCT(LOINC) 36.0 - 46.0 % Low HCT 35.5 LAB MCV(LOINC) 80 - 100 fL MCV 92 LAB MCHC2(LOINC 32.0 - 36.0 g/dL ) MCHC 34.9 LAB PLTCT(LOINC 150 - 450 x10E9/L ) PLT 297 LAB RDWCV(LOINC 11.5 - 14.5 % ) RDW-CV 13.3 Performed By: #### CBC #### [address] [id number] MAGNESIUM Collected: 12/26/2017 Status: F Source: [place] [address] [place] [address] REPOSITORY TYPE CODE TESTS RESULT OUT OF REFERENCE UNITS RANGE LAB MG(LOINC) 1.60 - 2.40 mg/dL MAGNESIUM 1.86 Performed By: #### MG #### [facility] [address] [place], [place] [id number] RENAL FUNCTION PANEL Collected: 12/26/2017 Status: F Source: [place] 7:25 PM H[facility]ALS REPOSITORY TYPE CODE TESTS RESULT OUT OF REFERENCE UNITS RANGE LAB GLU(LOINC) 74 - 99 mg/dL GLUCOSE 93 LAB SOD(LOINC) 136 - 145 mmol/L SODIUM 139 LAB K(LOINC) 3.5 - 5.3 mmol/L POTASSIUM 3.8 Result Comment: MILD HEMOLYSIS DETECTED. The result may be falsely elevated due to hemolysis or other interferents. Clinical correlation is recommended. Repeat testing may be considered. LAB CHLOR(LOINC) 98 - 107 mmol/L CHLORIDE 103 LAB BIC(LOINC) 21 - 32 mmol/L BICARBONATE 28 LAB ANGAP(LOINC) 10 - 20 mmol/L ANION GAP 12 LAB UREA(LOINC) 6 - 23 mg/dL UREA NITROGEN 10 LAB CREA(LOINC) 0.50 - mg/dL 1.05 CREATININE 0.68 LAB GFRFN(LOINC) >60 mL/min/1.73m 2 GFR-NON AM. >60 LAB GFRAA(LOINC) >60 mL/min/1.73m 2 GFR- AM. >60 Result Comment: CALCULATIONS OF ESTIMATED GFR ARE PERFORMED USING THE MDRD STUDY EQUATION FOR THE IDMS-TRACEABLE CREATININE METHODS. CLIN CHEM 2007;53:766-72 LAB CA(LOINC) 8.6 - 10.3 mg/dL CALCIUM 9.0 LAB PHOS(LOINC) 2.5 - 4.9 mg/dL PHOSPHORUS 3.7 Result Comment: The performance characteristics of phosphorus testing in heparinized plasma have been validated by the individual laboratory site where testing is performed. Testing on heparinized plasma is not approved by the FDA; however, such approval is not necessary. LAB ALB(LOINC) 3.4 - 5.0 g/dL ALBUMIN 3.8 Performed By: #### RENAL #### [facility] [address] [place], [place] [id number] CT HEAD WO CONTRAST Observed: 12/26/2017 Status: F Source: [place] 6:10 PM [facility] REPOSITORY Patient Name: EDGARDO DENSON STUDY: CT HEAD WO CONTRAST; 12/26/2017 6:10 pm INDICATION: Signs/Symptoms: Fall, head trauma. Trauma to the head. COMPARISON: 11/02/2016 CT ACCESSION NUMBER(S): [id number] ORDERING CLINICIAN: PETAR WINTERS TECHNIQUE: Noncontrast axial CT scan of head was performed. Angled reformats in brain and bone windows were generated. The images were reviewed in bone, brain, blood and soft tissue windows. FINDINGS: CSF Spaces: The ventricles, sulci and basal cisterns are normal similar to the prior exam. There is no extraaxial fluid collection. Parenchyma: No infarct, hemorrhage or mass is noted. Calvarium: The calvarium is unremarkable. Paranasal sinuses and mastoids: Visualized paranasal sinuses and mastoids are clear. IMPRESSION: Normal head CT. Electronically signed by: PHYSICIAN MARAH CT C-SPINE WO Observed: 12/26/2017 Status: F Source: [facility] 6:10 PM [facility] REPOSITORY Patient Name: EDGARDO DENSON STUDY: NR CT C-SPINE WO CONTRAST; 12/26/2017 6:10 pm INDICATION: Signs/Symptoms: Fall, head trauma. Trauma to the cervical spine, fell. Patient in C-collar on backboard. Patient combative. COMPARISON: None. ACCESSION NUMBER(S): [id number] ORDERING CLINICIAN: PETAR WINTERS TECHNIQUE: Axial CT images of the cervical spine are obtained. Axial, coronal and sagittal reconstructions are provided for review. Motion artifact degrades the images from C4-T1. FINDINGS: The images of the left upper lobe demonstrate a 7.5 mm ground-glass opacity superimposed on emphysematous changes. Fractures: There is no evidence for an acute fracture of the cervical spine. Vertebral Alignment: Within normal limits. Craniocervical junction: No mass of the foramen magnum is noted. The atlanto odontoid articulation has mild degenerative changes. C2-3: The disc bulges mildly but does not reach the ventral cord. The facet joints are moderately to severely arthritic. C3-4: The right lateral recess and foramen are stenosed by uncovertebral spurring and facet hypertrophy with moderate to severe facet arthritis worse on the right. Disc bulge nearly reaches the ventral cord. C4-5: Disc bulge and uncovertebral spurring stenose the lateral recesses and neural foramina more so on the right at and to a lesser degree the spinal canal, abutting the cord ventrally on the right. The facet joints are moderately to severely arthritic. C5-6: Disc bulge and uncovertebral spurring mildly stenose the spinal canal, lateral recesses and foramina. C6-7: Disc bulge and uncovertebral spurring mildly indent the ventral thecal sac. C7-T1: Minimal disc bulge and uncovertebral spurring are present. Prevertebral/Paraspinal Soft Tissues: The prevertebral and paraspinal soft tissues are unremarkable. IMPRESSION: 1. The left lung apex has a 7.5 mm ground-glass opacity superimposed on emphysema. Full chest CT is recommended for further evaluation. 2. No fracture or subluxation of the cervical spine. 3. Degenerative changes as noted Electronically signed by: PHYSICIAN MARAH CLINICAL EVENT Observed: 12/26/2017 Status: UNK Source: [place] NOTE-RAPID RESPONSE 5:58 PM [facility]ITALS REPOSITORY Event: Topic: Rapid response Details: Rapid response was called [id number]. Patient was found on floor with no response to verbal response or sternal rub. No breathing was elicited, no obvious pulse was found. Ventilation by oxygen mask was initiated, and chest compressions was started. However, patient immediately responded. Patient opened her eyes, but was not answering questions appropriately. Pads were placed. Oxygen saturation was 98% with HR 98. Unspecified fentanyl patch was noticed on anterior chest. 2 mg Narcan was given, with patient refusing and combative after hearing this, stating No Narcan, no narcan. BP within normal limits. Normal physical exam. Moving all extremities. Patient's head and C spine were stabilized. She was transported to bed on backboard. CT head and c-spine were ordered. Of note, patient is on Pradaxa. Patient continued to be verbally and physically abusive. Labs and EKG unable to be obtained. Will continue to monitor. Electronic Signatures: Petar Winters ( (Resident)) (Signed 26-Dec-2017 18:11) Authored: Event Last Updated: 26-Dec-2017 18:11 by Petar Winters ( (Resident)) CONSULT - PSYCHIATRY Observed: 12/26/2017 Status: COMPLETED Source: [place] 12:04 PM [facility] REPOSITORY Referral Information: Consult requested by (Attending Name): Dr. Mayes Reason: possible manic behavior History of Present Illness: Admission Reason: vomiting blood HPI: 52 y/o cf with h/o depression, PTSD, fibromyalgia, unknown autoimmune disease, admitted for n/v bloody emesis, and abdominal pain; psychiatry consulted 2/2 possible manic symptoms. pt. had been noted to be pacing in her room and making strange statements. Pt. also had a rapid response yesterday during which there were no VS abnormalities, and therefore medical team raised the question of psychogenic causes. On interview, pt. describes n/v, with dry heaving this morning mostly, and abdominal pain. She does not remember being confused or if she had any problems before the rapid response; she just remembers waking up with lots of people standing in the room. She denies any anxiety, but does say that she has had situational depression in the past, developed serotonin syndrome from Paxil, and is currently taking Effexor, which is helping prevent the depression currently. Denies any depressive symptoms, says is sleeping fair at home because of pain. Denies any anxiety symptoms, no evidence of manic or hypomanic symptoms. Pt. denies suicidal and homicidal ideation currently and at any time in the past; no psychosis now or in the past except when pt. was taking topamax. Pt. also reports a h/o having seizures, for which pt. was restarted recently on Vimpat by her PCP. She also has been prescribed clonazepam 1 mg TID PRN, by her report. 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 vancomycin: Anaphylaxis (Mild) ? Depakote: Other ? Tegretol: Other ? penicillin: Swelling/Edema ? Septra: Unknown ? Sulfacetamide Sodium: Unknown Intolerances: ? erythromycin: Gastritis Medications Prior to Admission: Home meds have been reviewed, but review is not yet complete Effexor: 300 milligram(s) orally once a day gabapentin: 900 mg by mouth three times a day Aldactone 25 mg oral tablet: orally , As Needed Phenergan: 25 milligram(s) orally 2 times a day, As Needed for nausea loratadine 10 mg oral tablet: 1 tab(s) orally once a day PriLOSEC OTC 20 mg oral delayed release capsule: 1 cap(s) orally once a day KlonoPIN 0.5 mg oral tablet: 0.5 milligram(s) orally every 8 hours, As Needed - for agitation Zantac 150 oral tablet: 1 tab(s) orally 2 times a day, As Needed Benadryl 25 mg oral tablet: 25 milligram(s) orally 3 times a day, As Needed Percocet 5/325 oral tablet: 1 tab(s) orally every 6 hours, As Needed fentanyl topical 50 mcg/hr transdermal film, extended release (obsolete): 50 microgram(s) transdermal every 72 hours Lomotil 2.5 mg-0.025 mg oral tablet: 2 tab(s) orally 4 times a day, As Needed Pradaxa 150 mg oral capsule: 1 cap(s) orally 2 times a day potassium chloride 20 mEq oral tablet, extended release: 1 tab(s) orally , As Needed. OARRS Review: OARRS checked: N/A Psychiatric Review of Symptoms: Anxiety: negative Depression: negative Delirium: negative Psychosis: negative Alana: negative Safety Issues: none elicited Review of Systems: Incomplete ROS: incomplete 2/2 sleepiness Constitutional: POSITIVE: Malaise Respiratory: POSITIVE: Productive Cough Gastrointestinal: NEGATIVE: Nausea, Vomiting, Abdominal Pain Psychiatric: POSITIVE: Sleep Changes; NEGATIVE: Mood Changes, Anxiety, Suicidal Ideas Objective: Objective Information: T P R BP SpO2 Value 36.6 92 16 107/71 92% Date/Time 12/26 11:46 12/26 11:46 12/26 11:46 12/26 11:46 12/26 11:46 Range (35.8C - 36.6C ) (86 - 98 ) (16 - 18 ) (104 - 129 )/ (68 - 86 ) (92% - 96% ) Pain with Activity reported at 12/25 22:03: 6 Pain at Rest reported at 12/26 1:33: 8 Mental Status Exam: General: hospital gown, appears frail Appearance: Appears older than stated age Attitude: Calm, cooperative, but somewhat sedated Behavior: Appropriate eye contact. Motor Activity: No agitation or retardation. No EPS/TD. Gait not observed Speech: soft, normal rate. Mood: Euthymic Affect: lower range, some appropriate smiling Thought Process: Organized, linear, goal directed. Associations are logical. Thought Content: Does not endorse suicidal or homicidal ideation, no delusions elicited. Thought Perception: Does not endorse auditory or visual hallucinations, does not appear to be responding to hallucinatory stimuli. Cognition: grossly intact. Insight: Good, as patient recognizes symptoms of illness and need for recommended treatments. Judgment: Can make reasonable decisions about ordinary activities of daily living and necessary medical care recommendations. Functional Estimates: Estimate of Intelligence: average Estimate of Capacity for Activities of Daily Living: independent Medications: Continuous Medications 1. Sodium Chloride 0.9% Infusion: 1000 mL IntraVenous <Continuous> Scheduled Medications 1. Albuterol 2.5mg - Ipratropium 0.5 mg/ 3mL Neb Soln: 3 mL Inhalation Every 6 Hours 2. clonazePAM: 1 mg Oral Every 8 Hours 3. Dabigatran: 150 mg Oral Every 12 Hours 4. Famotidine: 20 mg Oral 2 Times a Day 5. Gabapentin: 900 mg Oral 3 Times a Day 6. Lacosamide: 100 mg Oral 2 Times a Day 7. Loratadine: 10 mg Oral Daily 8. Pantoprazole: 20 mg Oral Daily 9. Venlafaxine Extended Release: 300 mg Oral Daily PRN Medications 1. Atropine 0.025 mg - Diphenoxylate 2.5 m tablet(s) Oral 4 Times a Day 2. diphenhydrAMINE: 25 mg Oral Every 8 Hours 3. Ondansetron Injectable: 4 mg IntraVenous Push Every 6 Hours 4. oxyCODONE 5 mg - Acetaminophen 325 m tablet(s) Oral Every 6 Hours 5. Promethazine: 25 mg Oral Every 6 Hours Recent Lab Results: Results: I have reviewed these laboratory results: Comprehensive Metabolic Panel Trending View Result 26-Dec-2017 05:21:00 25-Dec-2017 20:10:00 25-Dec-2017 05:24:00 23-Dec-2017 07:14:00 22-Dec-2017 15:53:00 Glucose, Serum 94 80 90 99 90 NA 139 139 136 142 147 H K 4.0 4.4 5.5 H 3.8 3.6 CL 106 104 104 108 H 106 Bicarbonate, Serum 28 29 28 25 31 Anion Gap, Serum 9 L 10 10 13 14 BUN 9 7 8 11 14 CREAT 0.70 0.74 0.66 0.71 0.68 GFR-Non >60 >60 >60 >60 >60 GFR- >60 >60 >60 >60 >60 Calcium, Serum 8.3 L 8.9 9.3 8.8 9.7 ALB 3.4 3.7 4.3 3.9 4.3 ALKP 92 86 88 86 90 T Pro 6.1 L 6.8 7.6 7.0 7.5 T Bili 0.2 0.2 0.4 0.6 0.4 Alanine Aminotransferase, Serum 28 15 18 16 16 Aspartate Transaminase, Serum 47 H 18 27 19 18 Complete Blood Count Trending View Result 26-Dec-2017 05:21:00 25-Dec-2017 20:10:00 25-Dec-2017 05:24:00 24-Dec-2017 06:00:00 23-Dec-2017 07:14:00 22-Dec-2017 15:53:00 White Blood Cell Count 5.8 5.9 7.0 6.9 8.2 11.4 H Red Blood Cell Count 3.73 L 3.97 L 4.50 4.07 4.17 4.07 HGB 11.8 L 12.9 14.3 12.9 13.4 13.2 HCT 34.5 L 36.7 41.8 37.6 37.9 36.9 MCV 92 92 93 92 91 91 MCHC 34.2 35.1 34.2 34.3 35.4 35.8 PLT 254 262 233 288 342 341 RDW-CV 12.9 13.2 13.2 13.1 13.3 13.2 Troponin I, Serum Trending View Result 26-Dec-2017 05:21:00 25-Dec-2017 20:10:00 Troponin I, Serum <0.02 <0.02 Phosphorus, Serum 26-Dec-2017 05:21:00 Result Value Phosphorus, Serum 3.4 Lactate, Level 25-Dec-2017 20:10:00 Result Value Lactate, Level 1.7 Glucose_POCT 25-Dec-2017 19:43:00 Result Value Glucose-POCT 98 Magnesium, Serum 25-Dec-2017 05:24:00 Result Value Magnesium, Serum 1.98 Renal Function Panel 24-Dec-2017 06:00:00 Result Value Glucose, Serum 83 NA 138 K 3.8 CL 105 Bicarbonate, Serum 26 Anion Gap, Serum 11 BUN 12 CREAT 0.64 GFR-Non >60 GFR- >60 Calcium, Serum 8.6 Phosphorus, Serum 3.0 ALB 3.5 Ethanol Level 22-Dec-2017 18:33:00 Result Value Ethanol Level <10 Acetaminophen Level, Serum 22-Dec-2017 18:33:00 Result Value Acetaminophen Level, Serum <10.0 Occult Blood Test 22-Dec-2017 16:33:00 Result Value Occult Bld 1 NEGATIVE Radiology Results: Results: Impression: No acute cardiopulmonary process. Xray Chest 1 View [Dec 25 2017 8:24PM] Impression: 1. Nonspecific nonobstructive bowel gas pattern . Xray Abdomen Complete Decub +/or Erect [Dec 24 2017 12:32PM] Impression: Nonobstructive bowel gas pattern. There is mild gaseous prominence of the sigmoid colon with associated mild fecal retention. Xray Abdomen Complete Decub +/or Erect [Dec 23 2017 12:51PM] Impression: Stable IVC filter. Previous cholecystectomy. Moderate to pronounced diffuse retained colonic stool. Moderately dilated loop nonspecific intestine deep in the pelvis, filled with gas and stool, without associated inflammation or mass. There is no ascites or pneumoperitoneum. The exact etiology and clinical significance are uncertain. This could be a focally dilated segment of small bowel, either due to partial obstruction or ileus; this does not appear to be redundant right colon or cecum, but that is not excluded. Recommend a repeat exam with adequate oral contrast on board (or rectal contrast if the patient cannot ingest oral contrast material). Emphysematous changes at the lung bases. CT Abdomen and Pelvis with Contrast [Dec 22 2017 5:25PM] Assessment/Recommendations: Psychiatric Risk Assessment: Violence Risk Assessment: major mental illness, unemployment Acute Risk of Harm to Others is Considered: minimal Suicide Risk Assessment: , chronic medical illness, current psychiatric illness Protective Factors against Suicide: adherence to treatment, fear of suicide, hopefulness / future orientation, positive family relationships, sense of responsibility toward family Risk of Harm to Self is Considered: minimal Assessment: Assessment: - h/o Major depressive disorder, currently in full remission - r/o benzodiazepine withdrawal - r/o intermittent confusion from multiple pain medication Recommendations: - Would attempt to minimize use of pain medications, as this may cause disorientation and delirium, resulting in confusions and bizarre behavior - However, would also use CIWA scale to monitor for benzodiazepine withdrawal and possible need to schedule a higher dose of clonazepam - would continue Effexor at current dose - All recommendations conveyed verbally to primary treatment team - Will follow-up tomorrow. - Thank you for this consult Electronic Signatures: Brittany Louis) (Signed 26-Dec-2017 13:00) Authored: Referral Information, History of Present Illness, Past Psychiatric History, Past Medical/Surgical History, Family History, Social History, Allergies, Medications Prior to Admission, Psychiatric Review of Symptoms, Review of Systems, Objective, Assessment/Recommendations, Signature/Cosignature/Attestation Last Updated: 26-Dec-2017 13:00 by Brittany Louis) DAILY PROGRESS Observed: 12/26/2017 Status: COMPLETED Source: [facility] 11:58 AM [facility] REPOSITORY Service: Medicine Subjective Data: EDGARDO DENSON is a 52 year old Female who is Hospital Day # 5. Additional Information: Patient's abdominal discomfort improved, tolerated soft diet well, nausea is minimal, no vomiting, had a code white called last night without significant findings REVIEW OF SYSTEMS: Constitutional; No fever, chills, anorexia, no weight loss Eyes: No blurry vision, no diplopia, no vision loss ENT: No nasal congestion, no earache , no sore throat Respiratory: No cough, no SOB, no hemoptysis , no wheezing Cardiac: No Chest Pain, no palpatations, no dyspnea on exertion, no orthopnea Gastrointestinal: co abdominal pain, co nausea, no vomiting, no diarrhea, melena, Genitourinary: No dysuria,no hematuria,no frequency, no urgency, no burning Musculoskeletal: No arthralgia, no myalgia, no weakness Skin: No Rash , no pruritis Endocrine: No heat or cold intolerance,no polyuria, no polydipsia Hematologic: No bruising, no rash Neurological: No dizziness,no light-headedness, no headache, no syncope Psychiatric: No anxiety, no depression, no hallucinations SOCIAL HISTORY : No smoking No alcohol use No drug abuse PHYSICAL EXAM: Constitutional: nomocephalic,atraumatic Ears no discharge , no tenderness Eyes no discharge , no tenderness ENT no LAP, no thyroid enlargement Lungs no crackles, no wheezing CV: no rubs, no murmurs GI: no tenderness,no guarding,cva negative Skin: no rash , no blisters Joints: no swelling , no pain Musculoskelatal: no muscle atrophy , no muscle tenderness Extremities: no edema, pulse+2 Neuro :no asterixis, no focal deficits Psych: no memory impairment , no cognition impirment Mood : no mood charge , no anxiety Objective Data: Objective Information: T P R BP SpO2 Value 36.6 92 16 107/71 92% Date/Time 12/26 11:46 12/26 11:46 12/26 11:46 12/26 11:46 12/26 11:46 Range (35.8C - 36.6C ) (86 - 98 ) (16 - 18 ) (104 - 129 )/ (68 - 86 ) (92% - 96% ) Pain with Activity reported at 12/25 22:03: 6 Pain at Rest reported at 12/26 1:33: 8 T P R BP SpO2 Value 36.6 92 16 107/71 92% Date/Time 12/26 11:46 12/26 11:46 12/26 11:46 12/26 11:46 12/26 11:46 Range (35.8C - 36.6C ) (86 - 98 ) (16 - 18 ) (104 - 129 )/ (68 - 86 ) (92% - 96% ) Medication: Medications: Continuous Medications 1. Sodium Chloride 0.9% Infusion: 1000 mL IntraVenous <Continuous> Scheduled Medications 1. Albuterol 2.5mg - Ipratropium 0.5 mg/ 3mL Neb Soln: 3 mL Inhalation Every 6 Hours 2. clonazePAM: 1 mg Oral Every 8 Hours 3. Dabigatran: 150 mg Oral Every 12 Hours 4. Famotidine: 20 mg Oral 2 Times a Day 5. Gabapentin: 900 mg Oral 3 Times a Day 6. Lacosamide: 100 mg Oral 2 Times a Day 7. Loratadine: 10 mg Oral Daily 8. Pantoprazole: 20 mg Oral Daily 9. Venlafaxine Extended Release: 300 mg Oral Daily PRN Medications 1. Atropine 0.025 mg - Diphenoxylate 2.5 m tablet(s) Oral 4 Times a Day 2. diphenhydrAMINE: 25 mg Oral Every 8 Hours 3. Ondansetron Injectable: 4 mg IntraVenous Push Every 6 Hours 4. oxyCODONE 5 mg - Acetaminophen 325 m tablet(s) Oral Every 6 Hours 5. Promethazine: 25 mg Oral Every 6 Hours Assessment and Plan: Medical History: Pain, chronic: Entered Date: 21-Sep-2015 21:27 Allergic disorder: Entered Date: 11-Apr-2014 04:24 Chronic pain: Entered Date: 17-Oct-2013 03:59 Depression NOS: Entered Date: 12-Oct-2013 09:56 Migraine NOS (disorder): Entered Date: 12-Oct-2013 09:55 Seizure disorder (disorder): Entered Date: 12-Oct-2013 09:54 Pulmonary embolism: Entered Date: 12-Oct-2013 09:54 Fatigue: Onset Date: 04-Nov-2012, Entered Date: 04-Nov-2012 01:12 Other Dx/Proc: Deep Vein Thrombosis: Entered Date: 05-Nov-2012 13:16 Abdominal pain: Entered Date: 19-Mar-2010 16:29 Chronic obstructive pulmonary disease: Onset Date: 19-Mar-2010, Entered Date: 19-Mar-2010 09:56 Chronic obstructive pulmonary disease: Entered Date: 19-Mar-2010 09:56 Chronic obstructive pulmonary disease: Entered Date: 19-Mar-2010 09:56 Assessment: 1 generalized abdominal pain due to illeus improved 2 hypokalemia resolved 3 COPD exacerbation, resolved 4 anxiety and depression, on Klonopin 0.5 twice a day when necessary 5 episode of unresponsiveness, and clear if there was real etiology 6 history of DVT/be on Pradaxa Plan Discontinue IV fluids Advance diet to regular Discontinue fentanyl patch and Dilaudid Continue Percocet when necessary Increase Klonopin to 1 mg 3 times a day when necessary as recommended by psychiatry Electronic Signatures: Flakito Mayes) (Signed 26-Dec-2017 20:20) Authored: Service, Subjective Data, Objective Data, Assessment and Plan, Signature/Cosignature/Attestation Last Updated: 26-Dec-2017 20:20 by Flakito Mayes) CBC Collected: 12/26/2017 Status: F Source: [place] 5:21 AM [facility] REPOSITORY TYPE CODE TESTS RESULT OUT OF RANGE REFERENCE UNITS LAB WBCR(LOINC) 4.4 - 11.3 x10E9/L WBC 5.8 LAB RBCCT(LOINC 4.00 - 5.20 x10E12/L ) Low RBC 3.73 LAB HGB(LOINC) 12.0 - 16.0 g/dL Low HGB 11.8 LAB HCT(LOINC) 36.0 - 46.0 % Low HCT 34.5 LAB MCV(LOINC) 80 - 100 fL MCV 92 LAB MCHC2(LOINC 32.0 - 36.0 g/dL ) MCHC 34.2 LAB PLTCT(LOINC 150 - 450 x10E9/L ) PLT 254 LAB RDWCV(LOINC 11.5 - 14.5 % ) RDW-CV 12.9 Performed By: #### CBC #### [facility] [address] [place], [place] [phone] TROPONIN I Collected: 12/26/2017 Status: F Source: [place] 5:21 AM [facility] REPOSITORY TYPE CODE TESTS RESULT OUT OF REFERENCE UNITS RANGE LAB TROP2(LOINC 0.00 - 0.03 ng/mL ) TROPONIN I <0.02 Result Comment: LESS THAN 0.04 NG/ML: NEGATIVE REPEAT TESTING IN FOUR TO SIX HOURS IF CLINICALLY INDICATED. 0.04 - 0.5 NG/ML: CONSISTENT WITH POSSIBLE CARDIAC DAMAGE AND POSSIBLE INCREASED CLINICAL RISK. SERIAL MEASUREMENTS MAY HELP ASSESS EXTENT OF MYOCARDIAL DAMAGE. >0.5 NG/ML: CONSISTENT WITH CARDIAC DAMAGE, INCREASED CLINICAL RISK AND MYOCARDIAL INFARCTION. SERIAL MEASUREMENTS MAY HELP ASSESS EXTENT OF MYOCARDIAL DAMAGE. . Note: Troponin I testing is performed using different testing methodology at [facility] than at other [facility]. Direct result comparisons should only be made within the same method. Performed By: #### TROP2 #### [facility] [address] [place], [place] [id number] PHOSPHORUS Collected: 12/26/2017 Status: F Source: [place] 5:21 [facility] REPOSITORY TYPE CODE TESTS RESULT OUT OF REFERENCE UNITS RANGE LAB PHOS(LOINC 2.5 - 4.9 mg/dL ) PHOSPHORUS 3.4 Result Comment: The performance characteristics of phosphorus testing in heparinized plasma have been validated by the individual laboratory site where testing is performed. Testing on heparinized plasma is not approved by the FDA; however, such approval is not necessary. Performed By: #### PHOS #### [facility] [address] [place], [place] [phone] COMPREHENSIVE PANEL Collected: 12/26/2017 Status: F Source: [place] 5:[address] [place] [address] REPOSITORY TYPE CODE TESTS RESULT OUT OF REFERENCE UNITS RANGE LAB GLU(LOINC) 74 - 99 mg/dL GLUCOSE 94 LAB SOD(LOINC) 136 - 145 mmol/L SODIUM 139 LAB K(LOINC) 3.5 - 5.3 mmol/L POTASSIUM 4.0 LAB CHLOR(LOIN 98 - 107 mmol/L C) CHLORIDE 106 LAB BIC(LOINC) 21 - 32 mmol/L BICARBONATE 28 LAB ANGAP(LOIN 10 - 20 mmol/L C) Low ANION GAP 9 LAB UREA(LOINC 6 - 23 mg/dL ) UREA NITROGEN 9 LAB CREA(LOINC 0.50 - 1.05 mg/dL ) CREATININE 0.70 LAB GFRFN(LOIN >60 mL/min/1.7 C) 3m2 GFR-NON AM. >60 LAB GFRAA(LOIN >60 mL/min/1.7 C) 3m2 GFR- AM. >60 Result Comment: CALCULATIONS OF ESTIMATED GFR ARE PERFORMED USING THE MDRD STUDY EQUATION FOR THE IDMS-TRACEABLE CREATININE METHODS. CLIN CHEM 2007;53:766-72 LAB CA(LOINC) 8.6 - 10.3 mg/dL CALCIUM Low 8.3 LAB ALB(LOINC) 3.4 - 5.0 g/dL ALBUMIN 3.4 LAB AP(LOINC) 33 - 110 U/L ALKALINE PHOSPHATASE 92 LAB TP(LOINC) 6.4 - 8.2 g/dL TOTAL PROTEIN Low 6.1 LAB AST(LOINC) 9 - 39 U/L AST High 47 LAB TBILI(LOINC) 0.0 - 1.2 mg/dL BILIRUBIN,TOTAL 0.2 LAB ALT(LOINC) 7 - 45 U/L ALT 28 Result Comment: Patients treated with Sulfasalazine may generate falsely decreased results for ALT. Performed By: #### CMP #### [address] [id number] CHEST 1 VIEW Observed: 12/25/2017 Status: F Source: [place] 8:18 PM [facility] REPOSITORY Patient Name: EDGARDO DENSON STUDY: CHEST 1 VIEW; 12/25/2017 8:18 pm INDICATION: Signs/Symptoms: unresponsive. COMPARISON: 10/19/2016 ACCESSION NUMBER(S): [id number] ORDERING CLINICIAN: ELLEN NICOLE FINDINGS: CARDIOMEDIASTINAL SILHOUETTE: Cardiomediastinal silhouette is normal in size and configuration. LUNGS: No pulmonary consolidation, pleural effusion or pneumothorax. ABDOMEN: No remarkable upper abdominal findings. BONES: No acute osseous abnormality. IMPRESSION: No acute cardiopulmonary process. Electronically signed by: MARTHA CHACON MD CBC Collected: 12/25/2017 Status: F Source: [place] 8:10 [facility] REPOSITORY TYPE CODE TESTS RESULT OUT OF RANGE REFERENCE UNITS LAB WBCR(LOINC) 4.4 - 11.3 x10E9/L WBC 5.9 LAB RBCCT(LOINC 4.00 - 5.20 x10E12/L ) Low RBC 3.97 LAB HGB(LOINC) 12.0 - 16.0 g/dL HGB 12.9 LAB HCT(LOINC) 36.0 - 46.0 % HCT 36.7 LAB MCV(LOINC) 80 - 100 fL MCV 92 LAB MCHC2(LOINC 32.0 - 36.0 g/dL ) MCHC 35.1 LAB PLTCT(LOINC 150 - 450 x10E9/L ) PLT 262 LAB RDWCV(LOINC 11.5 - 14.5 % ) RDW-CV 13.2 Performed By: #### CBC #### [facility] [id number] [place] [id number] COMPREHENSIVE PANEL Collected: 12/25/2017 Status: F Source: [place] 8:10 PM [facility] REPOSITORY TYPE CODE TESTS RESULT OUT OF REFERENCE UNITS RANGE LAB GLU(LOINC) 74 - 99 mg/dL GLUCOSE 80 LAB SOD(LOINC) 136 - 145 mmol/L SODIUM 139 LAB K(LOINC) 3.5 - 5.3 mmol/L POTASSIUM 4.4 LAB CHLOR(LOIN 98 - 107 mmol/L C) CHLORIDE 104 LAB BIC(LOINC) 21 - 32 mmol/L BICARBONATE 29 LAB ANGAP(LOIN 10 - 20 mmol/L C) ANION GAP 10 LAB UREA(LOINC 6 - 23 mg/dL ) UREA NITROGEN 7 LAB CREA(LOINC 0.50 - 1.05 mg/dL ) CREATININE 0.74 LAB GFRFN(LOIN >60 mL/min/1.7 C) 3m2 GFR-NON AM. >60 LAB GFRAA(LOIN >60 mL/min/1.7 C) 3m2 GFR- AM. >60 Result Comment: CALCULATIONS OF ESTIMATED GFR ARE PERFORMED USING THE MDRD STUDY EQUATION FOR THE IDMS-TRACEABLE CREATININE METHODS. CLIN CHEM 2007;53:766-72 LAB CA(LOINC) 8.6 - 10.3 mg/dL CALCIUM 8.9 LAB ALB(LOINC) 3.4 - 5.0 g/dL ALBUMIN 3.7 LAB AP(LOINC) 33 - 110 U/L ALKALINE PHOSPHATASE 86 LAB TP(LOINC) 6.4 - 8.2 g/dL TOTAL PROTEIN 6.8 LAB AST(LOINC) 9 - 39 U/L AST 18 LAB TBILI(LOINC) 0.0 - 1.2 mg/dL BILIRUBIN,TOTAL 0.2 LAB ALT(LOINC) 7 - 45 U/L ALT 15 Result Comment: Patients treated with Sulfasalazine may generate falsely decreased results for ALT. Performed By: #### CMP #### [facility] [address] [place], [place] [phone] LACTATE Collected: 12/25/2017 Status: F Source: [place] 8:10 PM [facility] REPOSITORY TYPE CODE TESTS RESULT OUT OF REFERENCE UNITS RANGE LAB LACT(LOINC) 0.4 - 2.0 mmol/L LACTATE 1.7 Result Comment: Venipuncture immediately after or during the administration of Metamizole may lead to falsely low results. Testing should be performed immediately prior to Metamizole dosing. Performed By: #### LACT #### [facility] [address] [place], [place] [phone] TROPONIN I Collected: 12/25/2017 Status: F Source: [place] 8:10 PM [facility] REPOSITORY TYPE CODE TESTS RESULT OUT OF REFERENCE UNITS RANGE LAB TROP2(LOINC 0.00 - 0.03 ng/mL ) TROPONIN I <0.02 Result Comment: LESS THAN 0.04 NG/ML: NEGATIVE REPEAT TESTING IN FOUR TO SIX HOURS IF CLINICALLY INDICATED. 0.04 - 0.5 NG/ML: CONSISTENT WITH POSSIBLE CARDIAC DAMAGE AND POSSIBLE INCREASED CLINICAL RISK. SERIAL MEASUREMENTS MAY HELP ASSESS EXTENT OF MYOCARDIAL DAMAGE. >0.5 NG/ML: CONSISTENT WITH CARDIAC DAMAGE, INCREASED CLINICAL RISK AND MYOCARDIAL INFARCTION. SERIAL MEASUREMENTS MAY HELP ASSESS EXTENT OF MYOCARDIAL DAMAGE. . Note: Troponin I testing is performed using different testing methodology at [facility] than at other [facility]. Direct result comparisons should only be made within the same method. Performed By: #### TROP2 #### [address] [id number] CLINICAL EVENT Observed: 12/25/2017 Status: UNK Source: [place] NOTE-RAPID RESPONSE 7:49 PM [facility] REPOSITORY Event: Topic: Rapid response Details: A rapid response was called at 1940 on 12/25. The patient was found to be unresponsive by the nursing team. She woke up to a sternal rub with confusion. The patient had VVS and BP wnl. She was A&Ox3 on examination with a normal physical exam. CXR, CBC, CMP, EKG and troponins were drawn. The patient was placed on telemetry and continuos pulse ox overnight. Most likely there is no physiological concern with a hx of psychiatric concerns in this patient. We will monitor to rule out any concerning causes. Electronic Signatures: Ellen Nicole ( (Resident)) (Signed 25-Dec-2017 19:52) Authored: Event Last Updated: 25-Dec-2017 19:52 by Ellen Nicole ( (Resident)) GLUCOSE-POCT Collected: 12/25/2017 Status: F Source: [place] 7:43 PM [facility] REPOSITORY TYPE CODE TESTS RESULT OUT OF RANGE REFERENCE UNITS LAB GLUP(LOINC) 74 - 99 mg/dL 98 GLUCOSE-POCT Performed By: #### GLUPO #### [facility] [address] [place], [place] [phone] DAILY PROGRESS Observed: 12/25/2017 Status: COMPLETED Source: [facility] 10:24 AM [facility] REPOSITORY Service: Medicine Subjective Data: EDGARDO DENSON is a 52 year old Female who is Hospital Day # 4. Additional Information: Patient continues to have diffuse abdominal discomfort, nausea vomiting resolved, denies shortness of breath REVIEW OF SYSTEMS: Constitutional; No fever, chills, anorexia, no weight loss Eyes: No blurry vision, no diplopia, no vision loss ENT: No nasal congestion, no earache , no sore throat Respiratory: No cough, no SOB, no hemoptysis , no wheezing Cardiac: No Chest Pain, no palpatations, no dyspnea on exertion, no orthopnea Gastrointestinal: co abdominal pain, no nausea, no vomiting, no diarrhea, melena, Genitourinary: No dysuria,no hematuria,no frequency, no urgency, no burning Musculoskeletal: No arthralgia, no myalgia, no weakness Skin: No Rash , no pruritis Endocrine: No heat or cold intolerance,no polyuria, no polydipsia Hematologic: No bruising, no rash Neurological: No dizziness,no light-headedness, no headache, no syncope Psychiatric: No anxiety, no depression, no hallucinations SOCIAL HISTORY : No smoking No alcohol use No drug abuse PHYSICAL EXAM: Constitutional: nomocephalic,atraumatic Ears no discharge , no tenderness Eyes no discharge , no tenderness ENT no LAP, no thyroid enlargement Lungs no crackles, no wheezing CV: no rubs, no murmurs GI:+ tenderness,no guarding,cva negative Skin: no rash , no blisters Joints: no swelling , no pain Musculoskelatal: no muscle atrophy , no muscle tenderness Extremities: no edema, pulse+2 Neuro :no asterixis, no focal deficits Psych: no memory impairment , no cognition impirment Mood : no mood charge , no anxiety Objective Data: Objective Information: T P R BP SpO2 Value 35.8 77 18 106/70 97% Date/Time 12/25 7:37 12/25 7:37 12/25 7:37 12/25 7:37 12/25 7:37 Range (35.8C - 37C ) (69 - 81 ) (18 - 18 ) (100 - 117 )/ (64 - 79 ) (95% - 99% ) Highest temp of 37 C was recorded at 12/24 15:27 Pain at Rest reported at 12/25 4:00: 0 T P R BP SpO2 Value 35.8 77 18 106/70 97% Date/Time 12/25 7:37 12/25 7:37 12/25 7:37 12/25 7:37 12/25 7:37 Range (35.8C - 37C ) (69 - 81 ) (18 - 18 ) (100 - 117 )/ (64 - 79 ) (95% - 99% ) Highest temp of 37 C was recorded at 12/24 15:27 Medication: Medications: Continuous Medications 1. Sodium Chloride 0.9% Infusion: 1000 mL IntraVenous <Continuous> Scheduled Medications 1. Albuterol 2.5mg - Ipratropium 0.5 mg/ 3mL Neb Soln: 3 mL Inhalation Every 6 Hours 2. Dabigatran: 150 mg Oral Every 12 Hours 3. Famotidine: 20 mg Oral 2 Times a Day 4. fentaNYL 12 micrograms/ hour TransDermal: 1 patch TransDermal Every 72 Hours 5. Gabapentin: 900 mg Oral 3 Times a Day 6. Lacosamide: 100 mg Oral 2 Times a Day 7. Loratadine: 10 mg Oral Daily 8. Pantoprazole: 20 mg Oral Daily 9. Venlafaxine Extended Release: 300 mg Oral Daily PRN Medications 1. Atropine 0.025 mg - Diphenoxylate 2.5 m tablet(s) Oral 4 Times a Day 2. clonazePAM: 0.5 mg Oral Every 8 Hours 3. diphenhydrAMINE: 25 mg Oral Every 8 Hours 4. HYDROmorphone: 1 mg Oral Every 6 Hours 5. Ondansetron: 4 mg Oral Every 6 Hours 6. oxyCODONE 5 mg - Acetaminophen 325 m tablet(s) Oral Every 6 Hours 7. Promethazine: 25 mg Oral Every 6 Hours Assessment and Plan: Medical History: Pain, chronic: Entered Date: 21-Sep-2015 21:27 Allergic disorder: Entered Date: 11-Apr-2014 04:24 Chronic pain: Entered Date: 17-Oct-2013 03:59 Depression NOS: Entered Date: 12-Oct-2013 09:56 Migraine NOS (disorder): Entered Date: 12-Oct-2013 09:55 Seizure disorder (disorder): Entered Date: 12-Oct-2013 09:54 Pulmonary embolism: Entered Date: 12-Oct-2013 09:54 Fatigue: Onset Date: 04-Nov-2012, Entered Date: 04-Nov-2012 01:12 Other Dx/Proc: Deep Vein Thrombosis: Entered Date: 05-Nov-2012 13:16 Abdominal pain: Entered Date: 19-Mar-2010 16:29 Chronic obstructive pulmonary disease: Onset Date: 19-Mar-2010, Entered Date: 19-Mar-2010 09:56 Chronic obstructive pulmonary disease: Entered Date: 19-Mar-2010 09:56 Chronic obstructive pulmonary disease: Entered Date: 19-Mar-2010 09:56 Assessment: 1 generalized abdominal pain due to partial small bowel obstruction versus Ileus , slowly improving 2 nausea and vomiting resolved 3 COPD with mild elevation, stabilized that the function 4 history of DVT/PE taking Pradaxa Plan IV fluids Symptom control No surgical intervention necessary according to surgical exam Continue to advance diet Electronic Signatures: Flakito Mayes) (Signed 25-Dec-2017 10:28) Authored: Service, Subjective Data, Objective Data, Assessment and Plan, Signature/Cosignature/Attestation Last Updated: 25-Dec-2017 10:28 by Flakito Mayes) DAILY PROGRESS Observed: 12/25/2017 Status: COMPLETED Source: [place] NOTE-MEDICINE 10:18 AM [facility] REPOSITORY Consult Type: subsequent visit/care Please note this for 12/24 - patient seen around 11 AM Service: Medicine Subjective Data: EDGARDO DENSON is a 52 year old Female who is Hospital Day # 4. Additional Information: Patient continues to feel nauseated and occasional vomiting, breathing is improved, still has generalized abdominal discomfort REVIEW OF SYSTEMS: Constitutional; No fever, chills, anorexia, no weight loss Eyes: No blurry vision, no diplopia, no vision loss ENT: No nasal congestion, no earache , no sore throat Respiratory: No cough, no SOB, no hemoptysis , no wheezing Cardiac: No Chest Pain, no palpatations, no dyspnea on exertion, no orthopnea Gastrointestinal: co abdominal pain, co nausea, co vomiting, no diarrhea, melena, Genitourinary: No dysuria,no hematuria,no frequency, no urgency, no burning Musculoskeletal: No arthralgia, no myalgia, no weakness Skin: No Rash , no pruritis Endocrine: No heat or cold intolerance,no polyuria, no polydipsia Hematologic: No bruising, no rash Neurological: No dizziness,no light-headedness, no headache, no syncope Psychiatric: No anxiety, no depression, no hallucinations SOCIAL HISTORY : No smoking No alcohol use No drug abuse PHYSICAL EXAM: Constitutional: nomocephalic,atraumatic Ears no discharge , no tenderness Eyes no discharge , no tenderness ENT no LAP, no thyroid enlargement Lungs no crackles, no wheezing CV: no rubs, no murmurs GI: + tenderness,no guarding,cva negative Skin: no rash , no blisters Joints: no swelling , no pain Musculoskelatal: no muscle atrophy , no muscle tenderness Extremities: no edema, pulse+2 Neuro :no asterixis, no focal deficits Psych: no memory impairment , no cognition impirment Mood : no mood charge , no anxiety Objective Data: Objective Information: T P R BP SpO2 Value 35.8 77 18 106/70 97% Date/Time 12/25 7:37 12/25 7:37 12/25 7:37 12/25 7:37 12/25 7:37 Range (35.8C - 37C ) (69 - 81 ) (18 - 18 ) (100 - 117 )/ (64 - 79 ) (95% - 99% ) Highest temp of 37 C was recorded at 12/24 15:27 Pain at Rest reported at 12/25 4:00: 0 T P R BP SpO2 Value 35.8 77 18 106/70 97% Date/Time 12/25 7:37 12/25 7:37 12/25 7:37 12/25 7:37 12/25 7:37 Range (35.8C - 37C ) (69 - 81 ) (18 - 18 ) (100 - 117 )/ (64 - 79 ) (95% - 99% ) Highest temp of 37 C was recorded at 12/24 15:27 Medication: Medications: Continuous Medications 1. Sodium Chloride 0.9% Infusion: 1000 mL IntraVenous <Continuous> Scheduled Medications 1. Albuterol 2.5mg - Ipratropium 0.5 mg/ 3mL Neb Soln: 3 mL Inhalation Every 6 Hours 2. Dabigatran: 150 mg Oral Every 12 Hours 3. Famotidine: 20 mg Oral 2 Times a Day 4. fentaNYL 12 micrograms/ hour TransDermal: 1 patch TransDermal Every 72 Hours 5. Gabapentin: 900 mg Oral 3 Times a Day 6. Lacosamide: 100 mg Oral 2 Times a Day 7. Loratadine: 10 mg Oral Daily 8. Pantoprazole: 20 mg Oral Daily 9. Venlafaxine Extended Release: 300 mg Oral Daily PRN Medications 1. Atropine 0.025 mg - Diphenoxylate 2.5 m tablet(s) Oral 4 Times a Day 2. clonazePAM: 0.5 mg Oral Every 8 Hours 3. diphenhydrAMINE: 25 mg Oral Every 8 Hours 4. HYDROmorphone: 1 mg Oral Every 6 Hours 5. Ondansetron: 4 mg Oral Every 6 Hours 6. oxyCODONE 5 mg - Acetaminophen 325 m tablet(s) Oral Every 6 Hours 7. Promethazine: 25 mg Oral Every 6 Hours Assessment and Plan: Medical History: Pain, chronic: Entered Date: 21-Sep-2015 21:27 Allergic disorder: Entered Date: 11-Apr-2014 04:24 Chronic pain: Entered Date: 17-Oct-2013 03:59 Depression NOS: Entered Date: 12-Oct-2013 09:56 Migraine NOS (disorder): Entered Date: 12-Oct-2013 09:55 Seizure disorder (disorder): Entered Date: 12-Oct-2013 09:54 Pulmonary embolism: Entered Date: 12-Oct-2013 09:54 Fatigue: Onset Date: 04-Nov-2012, Entered Date: 04-Nov-2012 01:12 Other Dx/Proc: Deep Vein Thrombosis: Entered Date: 05-Nov-2012 13:16 Abdominal pain: Entered Date: 19-Mar-2010 16:29 Chronic obstructive pulmonary disease: Onset Date: 19-Mar-2010, Entered Date: 19-Mar-2010 09:56 Chronic obstructive pulmonary disease: Entered Date: 19-Mar-2010 09:56 Chronic obstructive pulmonary disease: Entered Date: 19-Mar-2010 09:56 Assessment: 1 nausea and vomiting improved 2 generalized abdominal pain due to the loose 3 COPD with mild exacerbation improved 4 history of pulmonary embolism 5 history of seizure, clinically stable Suggestions Continue IV fluids IV pain medications and Zofran Respiratory treatments when necessary Surgery planning to repeat a KUB Electronic Signatures: Flakito Mayes) (Signed 25-Dec-2017 10:22) Authored: Service, Subjective Data, Objective Data, Assessment and Plan, Signature/Cosignature/Attestation Last Updated: 25-Dec-2017 10:22 by Flakito Mayes) DAILY PROGRESS Observed: 12/25/2017 Status: COMPLETED Source: [facility] 9:33 AM [facility] REPOSITORY Service: Surgery Subjective Data: EDGARDO DENSON is a 52 year old Female who is Hospital Day # 4. Patient seen and examined at bedside. Patient complaining of diffuse middle abdominal pain, she describes as sharp, stabbing that woke her up in the night. Patient denies any nausea, vomiting. States she did have a loose bowel movement yesterday evening. Per nursing the patient experienced anxiety overnight, and was seen pacing in her room, did not sleep much. Overnight Events: Patient had an uneventful night. Objective Data: Objective Information: T P R BP SpO2 Value 35.8 77 18 106/70 97% Date/Time 12/25 7:37 12/25 7:37 12/25 7:37 12/25 7:37 12/25 7:37 Range (35.8C - 37C ) (69 - 81 ) (18 - 18 ) (100 - 117 )/ (64 - 79 ) (95% - 99% ) Highest temp of 37 C was recorded at 12/24 15:27 Pain at Rest reported at 12/25 4:00: 0 Physical Exam: Constitutional: well developed white female seen at bedside, no acute distress, awake, alert, oriented x 3, cooperative Eyes: PERRL, EOMI, clear sclera, MMM Respiratory/Thorax: good respiratory effort, mild expiratory wheezing bilateral upper lobes Cardiovascular: Regular, rate and rhythm, no murmurs Gastrointestinal: soft abdomen, no masses or organomegaly. mild tenderness diffusely, some voluntary guarding, no rebound. (+) bowel sounds all 4 quadrants. Extremities: no LE edema Neurological: mild word finding difficulties Psychological: slightly tangential thought process Skin: Warm, no rashes. scattered punctate ovoid scars to b/l UE Medication: Medications: Continuous Medications 1. Sodium Chloride 0.9% Infusion: 1000 mL IntraVenous <Continuous> Scheduled Medications 1. Albuterol 2.5mg - Ipratropium 0.5 mg/ 3mL Neb Soln: 3 mL Inhalation Every 6 Hours 2. Dabigatran: 150 mg Oral Every 12 Hours 3. Famotidine: 20 mg Oral 2 Times a Day 4. fentaNYL 12 micrograms/ hour TransDermal: 1 patch TransDermal Every 72 Hours 5. Gabapentin: 900 mg Oral 3 Times a Day 6. Lacosamide: 100 mg Oral 2 Times a Day 7. Loratadine: 10 mg Oral Daily 8. Pantoprazole: 20 mg Oral Daily 9. Potassium Chloride Extended Release: 20 mEq Oral Daily 10. Spironolactone: 25 mg Oral Daily 11. Venlafaxine Extended Release: 300 mg Oral Daily PRN Medications 1. Atropine 0.025 mg - Diphenoxylate 2.5 m tablet(s) Oral 4 Times a Day 2. clonazePAM: 0.5 mg Oral Every 8 Hours 3. diphenhydrAMINE: 25 mg Oral Every 8 Hours 4. HYDROmorphone: 1 mg Oral Every 6 Hours 5. Ondansetron: 4 mg Oral Every 6 Hours 6. oxyCODONE 5 mg - Acetaminophen 325 m tablet(s) Oral Every 6 Hours 7. Promethazine: 25 mg Oral Every 6 Hours Recent Lab Results: Results: I have reviewed these laboratory results: Comprehensive Metabolic Panel 25-Dec-2017 05:24:00 Result Value Glucose, Serum 90 NA 136 K 5.5 H CL 104 Bicarbonate, Serum 28 Anion Gap, Serum 10 BUN 8 CREAT 0.66 GFR-Non >60 GFR- >60 Calcium, Serum 9.3 ALB 4.3 ALKP 88 T Pro 7.6 T Bili 0.4 Alanine Aminotransferase, Serum 18 Aspartate Transaminase, Serum 27 Complete Blood Count 25-Dec-2017 05:24:00 Result Value White Blood Cell Count 7.0 Red Blood Cell Count 4.50 HGB 14.3 HCT 41.8 MCV 93 MCHC 34.2 PLT 233 RDW-CV 13.2 Magnesium, Serum 25-Dec-2017 05:24:00 Result Value Magnesium, Serum 1.98 Radiology Results: Results: I have reviewed this radiology result: Impression: 1. Nonspecific nonobstructive bowel gas pattern . Xray Abdomen Complete Decub +/or Erect [Dec 24 2017 12:32PM] Assessment and Plan: Assessment: 52 yo white female with PMH of PE, grand mal seizures, PTSD, depression, unknown autoimmune disease, MRSA skin infection, fibromyalgia and gastritis with GI bleed (2007) presented to ED with hematemesis x 1 day, nausea and vomiting x 1 week with associated abdominal pain. CT abd/pelvis showed possible partial SBO vs focal ileus, but the findings were non-specific and a repeat exam with adequate oral or rectal contrast was recommended by the reading radiologist. Mild leukocytosis has resolved. All other labs unremarkable at this time. #possible partial SBO vs focal ileus -prelim and repeat KUB showing non-obstructive gas pattern -BM last night, loose -patient tolerating full liquid diet -no surgical intervention necessary at this time -will sign off Note not final until signed by attending, Dr. Humberto Abdi, [facility], PGY1 Surgery pager [phone] Signature/Cosignature/Attestation: Attending Attestation I saw and evaluated the patient. I personally obtained the mejias and critical portions of the history and physical exam or was physically present for mejias and critical portions performed by the resident/fellow. I reviewed the resident/fellow?s documentation and discussed the patient with the resident/fellow. I agree with the resident/fellow?s medical decision making as documented in the resident?s note. I personally evaluated the patient (as noted in the above attestation) on 25-Dec-2017 Electronic Signatures: Bisi Abdi (DO (Resident)) (Signed 25-Dec-2017 10:47) Authored: Service, Subjective Data, Objective Data, Assessment and Plan, Signature/Cosignature/Attestation Malik Paul) (Signed 10-Jan-2018 11:36) Authored: Signature/Cosignature/Attestation Co-Signer: Service, Subjective Data, Objective Data, Assessment and Plan, Signature/Cosignature/Attestation Last Updated: 10-Jan-2018 11:36 by Malik Paul) CBC Collected: 12/25/2017 Status: F Source: [place] 5:24 [facility] REPOSITORY TYPE CODE TESTS RESULT OUT OF RANGE REFERENCE UNITS LAB WBCR(LOINC) 4.4 - 11.3 x10E9/L WBC 7.0 LAB RBCCT(LOINC 4.00 - 5.20 x10E12/L ) RBC 4.50 LAB HGB(LOINC) 12.0 - 16.0 g/dL HGB 14.3 LAB HCT(LOINC) 36.0 - 46.0 % HCT 41.8 LAB MCV(LOINC) 80 - 100 fL MCV 93 LAB MCHC2(LOINC 32.0 - 36.0 g/dL ) MCHC 34.2 LAB PLTCT(LOINC 150 - 450 x10E9/L ) PLT 233 LAB RDWCV(LOINC 11.5 - 14.5 % ) RDW-CV 13.2 Performed By: #### CBC #### [address] [id number] MAGNESIUM Collected: 12/25/2017 Status: F Source: [place] 5:24 [facility] REPOSITORY TYPE CODE TESTS RESULT OUT OF REFERENCE UNITS RANGE LAB MG(LOINC) 1.60 - 2.40 mg/dL MAGNESIUM 1.98 Result Comment: MODERATE HEMOLYSIS DETECTED. The result may be falsely elevated due to hemolysis or other interferents. Clinical correlation is recommended. Repeat testing may be considered. Performed By: #### MG #### [address] [id number] COMPREHENSIVE PANEL Collected: 12/25/2017 Status: F Source: [place] 5:24 AM [facility] REPOSITORY TYPE CODE TESTS RESULT OUT OF REFERENCE UNITS RANGE LAB GLU(LOINC) 74 - 99 mg/dL GLUCOSE 90 LAB SOD(LOINC) 136 - 145 mmol/L SODIUM 136 LAB K(LOINC) 3.5 - 5.3 mmol/L High POTASSIUM 5.5 Result Comment: MODERATE HEMOLYSIS DETECTED. The result may be falsely elevated due to hemolysis or other interferents. Clinical correlation is recommended. Repeat testing may be considered. LAB CHLOR(LOINC) 98 - 107 mmol/L CHLORIDE 104 LAB BIC(LOINC) 21 - 32 mmol/L BICARBONATE 28 LAB ANGAP(LOINC) 10 - 20 mmol/L ANION GAP 10 LAB UREA(LOINC) 6 - 23 mg/dL UREA NITROGEN 8 LAB CREA(LOINC) 0.50 - mg/dL 1.05 CREATININE 0.66 LAB GFRFN(LOINC) >60 mL/min/1.73m 2 GFR-NON AM. >60 LAB GFRAA(LOINC) >60 mL/min/1.73m 2 GFR- AM. >60 Result Comment: CALCULATIONS OF ESTIMATED GFR ARE PERFORMED USING THE MDRD STUDY EQUATION FOR THE IDMS-TRACEABLE CREATININE METHODS. CLIN CHEM 2007;53:766-72 LAB CA(LOINC) 8.6 - 10.3 mg/dL CALCIUM 9.3 LAB ALB(LOINC) 3.4 - 5.0 g/dL ALBUMIN 4.3 LAB AP(LOINC) 33 - 110 U/L ALKALINE PHOSPHATASE 88 LAB TP(LOINC) 6.4 - 8.2 g/dL TOTAL PROTEIN 7.6 LAB AST(LOINC) 9 - 39 U/L AST 27 Result Comment: MODERATE HEMOLYSIS DETECTED. The result may be falsely elevated due to hemolysis or other interferents. Clinical correlation is recommended. Repeat testing may be considered. LAB TBILI(LOINC) 0.0 - 1.2 mg/dL BILIRUBIN,TOTAL 0.4 LAB ALT(LOINC) 7 - 45 U/L ALT 18 Result Comment: Patients treated with Sulfasalazine may generate falsely decreased results for ALT. Performed By: #### CMP #### [address] [id number] ABDOMEN, CMPLT( Observed: 12/24/2017 Status: F Source: [place] ERECT/DECUB) 9:05 AM [facility] REPOSITORY Patient Name: EDGARDO DENSON STUDY: ABDOMEN, CMPLT( ERECT/DECUB); 12/24/2017 9:05 am INDICATION: Signs/Symptoms: N/V, possible SBO. COMPARISON: 12/23/2017 ACCESSION NUMBER(S): [id number] ORDERING CLINICIAN: BISI ABDI FINDINGS: The bowel-gas pattern is nonspecific. Again there is mild distention what appears to be mid sigmoid colon measuring approximately 6 cm there is suggestion of mild mucosal edema of the right colon. No evidence of pneumoperitoneum The soft tissue shadows are unremarkable. Visualized lungs bases are clear. Osseous structures demonstrate no acute bony changes. Other findings: None significant IMPRESSION: 1. Nonspecific nonobstructive bowel gas pattern . Electronically signed by: VIDA QIU MD DAILY PROGRESS Observed: 12/24/2017 Status: COMPLETED Source: [place] [facility] 8:31 AM [facility] REPOSITORY Service: Surgery Subjective Data: EDGARDO DENSON is a 52 year old Female who is Hospital Day # 3. Patient seen and examined at bedside. Patient eating broth no issues. Patient states she did have significant dry heaving yesterday, although minimal emesis. No BM. Today is complaining of headache and some wheezing which she attributes to her dry heaving. Overnight Events: Patient had an uneventful night. Objective Data: Objective Information: T P R BP SpO2 Value 36.3 70 18 96/60 94% Date/Time 12/24 7:40 12/24 7:40 12/24 7:40 12/24 7:40 12/24 7:40 Range (36.3C - 37C ) (70 - 90 ) (16 - 18 ) (94 - 136 )/ (57 - 79 ) (92% - 94% ) Highest temp of 37 C was recorded at 12/23 12:11 Physical Exam: Constitutional: well developed white female seen at bedside with breakfast tray, no acute distress, awake, alert, oriented x 3, cooperative Eyes: PERRL, EOMI, clear sclera, MMM Respiratory/Thorax: good respiratory effort, mild expiratory wheezing bilateral upper lobes Cardiovascular: Regular, rate and rhythm, no murmurs Gastrointestinal: soft abdomen, no masses or organomegaly. Mild tenderness to LLQ today, no guarding or rebound. (+) bowel sounds all 4 quadrants. Extremities: no LE edema Neurological: mild word finding difficulties Psychological: slightly tangential thought process Skin: Warm, no rashes. scattered punctate ovoid scars to b/l UE Medication: Medications: Continuous Medications 1. Sodium Chloride 0.9% Infusion: 1000 mL IntraVenous <Continuous> Scheduled Medications 1. Dabigatran: 150 mg Oral Every 12 Hours 2. Famotidine: 20 mg Oral 2 Times a Day 3. fentaNYL 12 micrograms/ hour TransDermal: 1 patch TransDermal Every 72 Hours 4. Gabapentin: 900 mg Oral 3 Times a Day 5. Lacosamide: 100 mg Oral 2 Times a Day 6. Loratadine: 10 mg Oral Daily 7. Pantoprazole: 20 mg Oral Daily 8. Potassium Chloride Extended Release: 20 mEq Oral Daily 9. Spironolactone: 25 mg Oral Daily 10. Venlafaxine Extended Release: 300 mg Oral Daily PRN Medications 1. Atropine 0.025 mg - Diphenoxylate 2.5 m tablet(s) Oral 4 Times a Day 2. clonazePAM: 0.5 mg Oral Every 8 Hours 3. diphenhydrAMINE: 25 mg Oral Every 8 Hours 4. HYDROmorphone: 1 mg Oral Every 6 Hours 5. Ondansetron: 4 mg Oral Every 6 Hours 6. oxyCODONE 5 mg - Acetaminophen 325 m tablet(s) Oral Every 6 Hours 7. Promethazine: 25 mg Oral Every 6 Hours Recent Lab Results: Results: I have reviewed these laboratory results: Renal Function Panel 24-Dec-2017 06:00:00 Result Value Glucose, Serum 83 NA 138 K 3.8 CL 105 Bicarbonate, Serum 26 Anion Gap, Serum 11 BUN 12 CREAT 0.64 GFR-Non >60 GFR- >60 Calcium, Serum 8.6 Phosphorus, Serum 3.0 ALB 3.5 Complete Blood Count 24-Dec-2017 06:00:00 Result Value White Blood Cell Count 6.9 Red Blood Cell Count 4.07 HGB 12.9 HCT 37.6 MCV 92 MCHC 34.3 PLT 288 RDW-CV 13.1 Radiology Results: Results: I have reviewed this radiology result: Impression: Nonobstructive bowel gas pattern. There is mild gaseous prominence of the sigmoid colon with associated mild fecal retention. Xray Abdomen Complete Decub +/or Erect [Dec 23 2017 12:51PM] Impression: Stable IVC filter. Previous cholecystectomy. Moderate to pronounced diffuse retained colonic stool. Moderately dilated loop nonspecific intestine deep in the pelvis, filled with gas and stool, without associated inflammation or mass. There is no ascites or pneumoperitoneum. The exact etiology and clinical significance are uncertain. This could be a focally dilated segment of small bowel, either due to partial obstruction or ileus; this does not appear to be redundant right colon or cecum, but that is not excluded. Recommend a repeat exam with adequate oral contrast on board (or rectal contrast if the patient cannot ingest oral contrast material). Emphysematous changes at the lung bases. CT Abdomen and Pelvis with Contrast [Dec 22 2017 5:25PM] Assessment and Plan: Assessment: 52 yo white female with PMH of PE, grand mal seizures, PTSD, depression, unknown autoimmune disease, MRSA skin infection, fibromyalgia and gastritis with GI bleed (2007) presented to ED with hematemesis x 1 day, nausea and vomiting x 1 week with associated abdominal pain. CT abd/pelvis showed possible partial SBO vs focal ileus, but the findings were non-specific and a repeat exam with adequate oral or rectal contrast was recommended by the reading radiologist. Mild leukocytosis has resolved. All other labs unremarkable at this time. #possible partial SBO vs focal ileus -KUB yesterday showing non-obstructive gas pattern -given continued N/V and no BM will get repeat KUB today -can advance diet to full liquids as tolerated -no surgical intervention necessary at this time Note not final until signed by attending, Dr. Humberto Abdi, [facility], PGY1 Surgery pager [phone] Signature/Cosignature/Attestation: Attending Attestation I saw and evaluated the patient. I personally obtained the mejias and critical portions of the history and physical exam or was physically present for mejias and critical portions performed by the resident/fellow. I reviewed the resident/fellow?s documentation and discussed the patient with the resident/fellow. I agree with the resident/fellow?s medical decision making as documented in the resident?s note. I personally evaluated the patient (as noted in the above attestation) on 24-Dec-2017 Electronic Signatures: Bisi Abdi ( (Resident)) (Signed 24-Dec-2017 08:43) Authored: Service, Subjective Data, Objective Data, Assessment and Plan, Signature/Cosignature/Attestation Malik Paul) (Signed 10-Jan-2018 11:36) Authored: Signature/Cosignature/Attestation Co-Signer: Service, Subjective Data, Objective Data, Assessment and Plan, Signature/Cosignature/Attestation Last Updated: 10-Jan-2018 11:36 by Malik Paul) CBC Collected: 12/24/2017 Status: F Source: [place] 6:00 [facility] REPOSITORY TYPE CODE TESTS RESULT OUT OF RANGE REFERENCE UNITS LAB WBCR(LOINC) 4.4 - 11.3 x10E9/L WBC 6.9 LAB RBCCT(LOINC 4.00 - 5.20 x10E12/L ) RBC 4.07 LAB HGB(LOINC) 12.0 - 16.0 g/dL HGB 12.9 LAB HCT(LOINC) 36.0 - 46.0 % HCT 37.6 LAB MCV(LOINC) 80 - 100 fL MCV 92 LAB MCHC2(LOINC 32.0 - 36.0 g/dL ) MCHC 34.3 LAB PLTCT(LOINC 150 - 450 x10E9/L ) PLT 288 LAB RDWCV(LOINC 11.5 - 14.5 % ) RDW-CV 13.1 Performed By: #### CBC #### [facility] [id number] [place] [id number] RENAL FUNCTION PANEL Collected: 12/24/2017 Status: F Source: [place] 6:00 [facility] REPOSITORY TYPE CODE TESTS RESULT OUT OF REFERENCE UNITS RANGE LAB GLU(LOINC) 74 - 99 mg/dL GLUCOSE 83 LAB SOD(LOINC) 136 - 145 mmol/L SODIUM 138 LAB K(LOINC) 3.5 - 5.3 mmol/L POTASSIUM 3.8 LAB CHLOR(LOIN 98 - 107 mmol/L C) CHLORIDE 105 LAB BIC(LOINC) 21 - 32 mmol/L BICARBONATE 26 LAB ANGAP(LOIN 10 - 20 mmol/L C) ANION GAP 11 LAB UREA(LOINC 6 - 23 mg/dL ) UREA NITROGEN 12 LAB CREA(LOINC 0.50 - 1.05 mg/dL ) CREATININE 0.64 LAB GFRFN(LOIN >60 mL/min/1.7 C) 3m2 GFR-NON AM. >60 LAB GFRAA(LOIN >60 mL/min/1.7 C) 3m2 GFR- AM. >60 Result Comment: CALCULATIONS OF ESTIMATED GFR ARE PERFORMED USING THE MDRD STUDY EQUATION FOR THE IDMS-TRACEABLE CREATININE METHODS. CLIN CHEM 2007;53:766-72 LAB CA(LOINC) 8.6 - 10.3 mg/dL CALCIUM 8.6 LAB PHOS(LOINC) 2.5 - 4.9 mg/dL PHOSPHORUS 3.0 Result Comment: The performance characteristics of phosphorus testing in heparinized plasma have been validated by the individual laboratory site where testing is performed. Testing on heparinized plasma is not approved by the FDA; however, such approval is not necessary. LAB ALB(LOINC) 3.4 - 5.0 g/dL ALBUMIN 3.5 Performed By: #### RENAL #### [address] [id number] CLINICAL INTERVENTION - Observed: 12/23/2017 Status: UNK Source: [facility] 1:52 PM [facility] REPOSITORY Pharmacist's Clinical Intervention: Type of recommendation: Day 2 Time Required: 10-30 minutes Electronic Signatures: Kirti Yan () (Signed 23-Dec-2017 13:53) Authored: Pharmacist's Clinical Intervention Last Updated: 23-Dec-2017 13:53 by Kirti Yan () CLINICAL INTERVENTION - Observed: 12/23/2017 Status: UNK Source: [facility] 12:31 PM [facility] REPOSITORY Pharmacist's Clinical Intervention: Active and Pending Medications: fentaNYL 50 micrograms/ hour TransDermal, Film, Extended Release (DURAGESIC) DOSE = 1 patch TransDermal Every 72 Hours, 23-Dec-2017, Discontinued fentaNYL 12 micrograms/ hour TransDermal, Film, Extended Release (DURAGESIC) DOSE = 1 patch TransDermal Every 72 Hours Notes from Pharmacy: Fentanyl 12 microgram Patch delivers Fentanyl 12.5 micrograms/hr, 23-Dec-2017, Active Lacosamide, Tablet (VIMPAT) DOSE = 100 mg Oral 2 Times a Day, 23-Dec-2017, Active Reason for pharmacist's clinical intervention: Fentanyl 50 mcg patch ordered; per review of [place] appears last time dose this high filled was in 08/2017; last filled 10/30 for 12 mcg patch; rec to decrease ok By Dr. Mayes to change. Also had called pharmacy and confirmed pt picked up qty 60 vimpat 100 (bid) on 12/21 ([phone]). Ok to start this. Pharmacist intervention: Contacted physician, Dr. Mayes. Type of recommendation: Alternative dose, Add or initiate drug Expected outcome and basis: Prevention of ADR/Error/Toxicity Time Required: 5 - 10 minutes Electronic Signatures: Ruth Wade) (Signed 23-Dec-2017 12:33) Authored: Pharmacist's Clinical Intervention Last Updated: 23-Dec-2017 12:33 by Ruth Wade (KEL[place]) ABDOMEN, CMPLT( Observed: 12/23/2017 Status: F Source: [place] ERECT/DECUB) 11:06 AM [facility] REPOSITORY Patient Name: EDGARDO DENSON STUDY: ABDOMEN, CMPLT( ERECT/DECUB); 12/23/2017 11:06 am INDICATION: Signs/Symptoms: possible SBO, N/V. COMPARISON: CT abdomen and pelvis 12/22/2017 and 09/20/2015 ACCESSION NUMBER(S): [id number] ORDERING CLINICIAN: BISI ABDI FINDINGS: No dilated small bowel segments are identified. There is mild gaseous prominence of the colon, similar to the comparison CT exam. The upright film shows no definite evidence of free air or suspicious air-fluid levels. An IVC filter and right upper quadrant surgical clips are noted. There is mild lumbar dextroscoliosis. IMPRESSION: Nonobstructive bowel gas pattern. There is mild gaseous prominence of the sigmoid colon with associated mild fecal retention. Electronically signed by: ERICA PABLO MD DISCHARGE PROFILE2 Observed: 12/23/2017 Status: UNK Source: [place] 10:30 AM [facility] REPOSITORY Discharge Orders: Anticipated Discharge Date: ? Anticipated Discharge Date 23-Dec-2017 ? Anticipated Discharge Time 13:08 Problem List: Additional Dx: ? COPD exacerbation: Catalog Name: Chronic obstructive pulmonary disease with (acute) exacerbation ? Abdominal pain: Catalog Name: Unspecified abdominal pain Medical History: ? Pain, chronic: Catalog Name: Other chronic pain ? Allergic disorder: Catalog Name: Allergic condition ? Chronic pain: Catalog Name: Chronic pain ? Depression NOS: Catalog Name: Depression NOS ? Migraine NOS (disorder): Catalog Name: Migraine NOS (disorder) ? Seizure disorder (disorder): Catalog Name: Seizure disorder ? Pulmonary embolism: Catalog Name: Pulmonary embolism ? Fatigue: Onset Date: 04-Nov-2012, Catalog Name: Fatigue Prelim Disch Dx: ? Recurrent major depressive disorder, in full remission: Catalog Name: Major depressive disorder, recurrent, in full remission ? Acute opioid withdrawal: Catalog Name: Opioid dependence with withdrawal ? Acute opioid withdrawal: Catalog Name: Opioid dependence with withdrawal ? Open wound of chest wall, uncomplicated: Catalog Name: Open wound of chest wall, uncomplicated ? Open chest wound: Catalog Name: Open wound of chest wall ? Methicillin susceptible Staphylococcus aureus infection: Catalog Name: Infection by methicillin sensitive Staphylococcus aureus ? Memory impairment: Catalog Name: Memory impairment ? Depression: Catalog Name: Depressive disorder ? Depression: Catalog Name: Depressive disorder ? Memory impairment: Catalog Name: Memory impairment ? Memory impairment: Catalog Name: Memory impairment ? Isolated memory impairment: Catalog Name: Memory impairment ? Syncope: Catalog Name: Syncope ? Syncope: Catalog Name: Syncope ? Depression: Catalog Name: Depressive disorder ? Cellulitis of arm: Catalog Name: Cellulitis of upper limb ? Pulmonary embolism: Catalog Name: Pulmonary embolism ? Migraine NOS (disorder): Catalog Name: Migraine NOS (disorder) ? Shingles: Catalog Name: Herpes zoster ? Seizure disorder (disorder): Catalog Name: Seizure disorder ? Post-herpetic neuralgia: Catalog Name: Post-herpetic neuralgia ? Obstructive sleep apnea: Catalog Name: Obstructive sleep apnea ? Pulmonary embolism: Catalog Name: Pulmonary embolism ? Vitamin D deficiency: Catalog Name: Vitamin D deficiency (disorder) ? [Tiredness], [fatigue], [lethargy] or [malaise] symptom: Catalog Name: [Tiredness], [fatigue], [lethargy] or [malaise] symptom ? Respiratory acidosis: Catalog Name: Respiratory acidosis (disorder) Other Dx/Proc: ? Deep Vein Thrombosis: Catalog Name: Deep Vein Thrombosis, Description: Deep Vein Thrombosis ? Abdominal pain: Catalog Name: Abdominal pain, Description: Abdominal pain ? Chronic obstructive pulmonary disease: Onset Date: 19-Mar-2010, Catalog Name: Chronic obstructive pulmonary disease ? Chronic obstructive pulmonary disease: Catalog Name: Chronic obstructive pulmonary disease ? Chronic obstructive pulmonary disease: Catalog Name: Chronic obstructive pulmonary disease Activity: activity as tolerated. Diet: ? Diet regular Provider FINAL REVIEW of Orders: Final Review: ? Final Review of Medication Reconciliation and Orders Completed by Physician ? Reviewing Provider Flakito Mayes MD at 27-Dec-2017 13:08:47 Appointments: Follow-Up Appointment 01: ? Physician/Dept/Service PCP Dr. Ryan Castano ? Reason for Referral follow up hospitalization and medication management ? ? Comments *Please keep your already scheduled appt. as we discussed. Other Clinician Instructions: Other Instructions: ? Nursing Instructions HANDOUTS: Managing Your Health at Home Vomiting blood ? Other Clinician Instructions Edgardo Denson, Thank you for choosing [facility] for your Health Care needs. You may receive a survey in the mail within a couple weeks. Please take the time to complete it and return it. . We ALWAYS appreciate you taking the time to fill it out. Your input is always important to us. Thank you! Kathi Dillon, Registered Nurse, Qualitative Field Coordinator Handouts Given: Topic 1 My Medication Education list Electronic Signatures: Flakito Mayes) (Signed 27-Dec-2017 13:08) Authored: Discharge Orders, Provider FINAL REVIEW of Orders Sonam Sal (CLIN COOR) (Signed 23-Dec-2017 10:40) Authored: Discharge Orders, Appointments, Other Clinician Instructions, Gold Form - Train Examiner Summary Last Updated: 27-Dec-2017 13:08 by Flakito Mayes) HISTORY AND PHYSICAL Observed: 12/23/2017 Status: COMPLETED Source: [place] 9:50 AM [facility] REPOSITORY History of Present Illness: /Lactating: ? Are You no (1) ? Are You Currently no (2) Admission Reason: vomiting blood HPI: patient is a 52 year old female, with a PMH of Fibromyalgia, PTSD, depression, and unknown autoimmune disease who presents to with ED with bloody vomitus, nausea, and abdominal pain. Patient states that this episode of vomiting lasted 1 week, but that the bloody vomitus began last night. Patient also states that the increase in abdominal pain has lasted about a week as well. Nausea has also increased with severity over the last week. Patient denies any SOB/CP/F. Patient has no further complaints at this time. REVIEW OF SYSTEMS: Constitutional; No fever, chills, anorexia, no weight loss Eyes: No blurry vision, no diplopia, no vision loss ENT: No nasal congestion, no earache , no sore throat Respiratory: No cough, no SOB, no hemoptysis , no wheezing Cardiac: No Chest Pain, no palpatations, no dyspnea on exertion, no orthopnea Gastrointestinal: No abdominal pain, no nausea, no vomiting, no diarrhea, melena, Genitourinary: No dysuria,no hematuria,no frequency, no urgency, no burning Musculoskeletal: No arthralgia, no myalgia, no weakness Skin: No Rash , no pruritis Endocrine: No heat or cold intolerance,no polyuria, no polydipsia Hematologic: No bruising, no rash Neurological: No dizziness,no light-headedness, no headache, no syncope Psychiatric: No anxiety, no depression, no hallucinations SOCIAL HISTORY : No smoking No alcohol use No drug abuse PHYSICAL EXAM: Constitutional: nomocephalic,atraumatic Ears no discharge , no tenderness Eyes no discharge , no tenderness ENT no LAP, no thyroid enlargement Lungs no crackles, no wheezing CV: no rubs, no murmurs GI: no tenderness,no guarding,cva negative Skin: no rash , no blisters Joints: no swelling , no pain Musculoskelatal: no muscle atrophy , no muscle tenderness Extremities: no edema, pulse+2 Neuro :no asterixis, no focal deficits Psych: no memory impairment , no cognition impirment Mood : no mood charge , no anxiety Comorbidities: ? Comorbid Conditions hypertension Allergies: ? vancomycin: Anaphylaxis (Mild) ? Depakote: Other ? Tegretol: Other ? penicillin: Swelling/Edema ? Septra: Unknown ? Sulfacetamide Sodium: Unknown Intolerances: ? erythromycin: Gastritis Objective: Objective Information: T P R BP SpO2 Value 36.4 83 16 110/64 95% Date/Time 12/23 7:35 12/23 7:35 12/23 7:35 12/23 7:35 12/23 7:35 Range (36.4C - 36.7C ) (67 - 92 ) (16 - 18 ) (110 - 138 )/ (64 - 87 ) (94% - 100% ) T P R BP SpO2 Value 35.8 77 18 106/70 97% Date/Time 12/25 7:37 12/25 7:37 12/25 7:37 12/25 7:37 12/25 7:37 Range (35.8C - 37C ) (69 - 81 ) (18 - 18 ) (100 - 117 )/ (64 - 79 ) (95% - 99% ) Highest temp of 37 C was recorded at 12/24 15:27 Medications: Medications: Continuous Medications 1. Sodium Chloride 0.9% Infusion: 1000 mL IntraVenous <Continuous> Scheduled Medications 1. Dabigatran: 150 mg Oral Every 12 Hours 2. Famotidine: 20 mg Oral 2 Times a Day 3. fentaNYL 50 micrograms/ hour TransDermal: 1 patch TransDermal Every 72 Hours 4. Gabapentin: 900 mg Oral 3 Times a Day 5. Loratadine: 10 mg Oral Daily 6. Pantoprazole: 20 mg Oral Daily 7. Potassium Chloride Extended Release: 20 mEq Oral Daily 8. Spironolactone: 25 mg Oral Daily 9. Venlafaxine Extended Release: 300 mg Oral Daily PRN Medications 1. Atropine 0.025 mg - Diphenoxylate 2.5 m tablet(s) Oral 4 Times a Day 2. clonazePAM: 0.5 mg Oral Every 8 Hours 3. diphenhydrAMINE: 25 mg Oral Every 8 Hours 4. HYDROmorphone Injectable: 1 mg IntraVenous Push Every 6 Hours 5. Ondansetron Injectable: 4 mg IntraVenous Push Every 6 Hours 6. oxyCODONE 5 mg - Acetaminophen 325 m tablet(s) Oral Every 6 Hours 7. Promethazine: 25 mg Oral Every 6 Hours Assessment and Plan: Problem List: Medical History: Pain, chronic: Allergic disorder: Chronic pain: Depression NOS: Migraine NOS (disorder): Seizure disorder (disorder): Pulmonary embolism: Fatigue: Onset Date: 04-Nov-2012 Other Dx/Proc: Deep Vein Thrombosis: Description: Deep Vein Thrombosis Abdominal pain: Description: Abdominal pain Chronic obstructive pulmonary disease: Onset Date: 19-Mar-2010 Chronic obstructive pulmonary disease: Chronic obstructive pulmonary disease: Assessment: 1 nausea vomiting with blood, she has history of hemorrhagic gastritis 2 COPD with mild exacerbation without respiratory failure 3 generalized abdominal pain, CT abdomen shows partial small bowel obstruction versus ileus Plan Respiratory treatments with albuterol and Atrovent IV fluids Symptom control with IV pain medications and antiemetics Surgical team to evaluate Signatures/Attestation/Certification: Attending Provider ? Inpatient Certification Statement I certify this patient?s need for inpatient care based on the above documentation including; the order to admit as inpatient, the anticipated length of stay, diagnosis, problem list and plan of care, and discharge plan. Electronic Signatures: Flakito Mayes) (Signed 25-Dec-2017 10:18) Authored: History of Present Illness, Comorbidities, Allergies, Objective, Assessment and Plan, Signatures/Attestation/Certification Last Updated: 25-Dec-2017 10:18 by Flakito Mayes) References: 1. Data Referenced From Patient Profile - Adult v2 12/23/2017 02:41 AM 2. Data Referenced From Provider Note - ED 12/22/2017 03:28 PM CONSULT-SURGERY Observed: 12/23/2017 Status: COMPLETED Source: [place] 9:24 AM [facility] REPOSITORY Service: Service: Surgery Consult: Consult requested by (Attending Name): Sugey Reason: possible partial SBO vs focal ileus History of Present Illness: Admission Reason: hematemesis HPI: 52 yo white female with PMH of PE, grand mal seizures, PTSD, depression, unknown autoimmune disease, MRSA skin infection, fibromyalgia and gastritis with GI bleed (2007) presented to ED with bloody vomitus, nausea, and abdominal pain. Patient states that this episode of nausea and vomiting abdominal pain started 1 week ago, but that the bloody vomitus began 1 day ago. Patient says that when her gastritis flares up, she experiences distention with nausea, similar to her symptoms this past week. When she gets these symptoms she normally takes phenergan and decrease her oral intake significantly. She says that she takes phenergan a lot for frequent nausea, but the patient does not attribute this nausea to her gastritis. She does not know the etiology of her frequent nausea. In ED patient was found to have WBC 11.4, all other labs unremarkable. Fecal occult negative. CT abd/pelvis showed possible partial SBO vs focal ileus, but the findings were non-specific and a repeat exam with adequate oral or rectal contrast was recommended by the reading radiologist. Patient seen and examined at bedside with breakfast tray. States she had jello and lemon icey for breakfast and started dry heaving afterwords, but no emesis. States she is still having abd pain and nausea. No further bloody emesis. States her last bowel movement was 2 days ago and it was slightly loose, no blood. PMH: As stated in HPI PSH: cholecystectomy, C section, I&D L left Medications: Pradaxa, Vimpat, Clonipine, Perocet, Zantac Vitamin D, Neurontin, Effexor, Clairitin, Prilosec, Phenergan Allergies: Depakote, Sulfa Drugs, Vancomycin (hives) Hospitalizations: Gastritis in 2007, Cellulitis, PE, Stroke SH: Smokes up to 1 pack per day, denies ETOH use ROS: nausea, abd pain. back pain and right flank pain. insomnia. Negative for all other systems. Physical Exam: GEN: well developed white female seen at bedside with breakfast tray, no acute distress, awake, alert, oriented x 3, cooperative HEENT: PERRLA, EOMI, moist mucus membranes RESP: CTAB, no adventitious sounds, good chest expansion CV: RRR, no murmurs, rubs, gallops Abd: soft abdomen, no masses or organomegaly. Mild tenderness to right periumbilical region, no guarding or rebound. (+) bowel sounds all 4 quadrants. EXT: no LE edema Skin: Warm, no rashes. scattered punctate ovoid scars to b/l UE Psych: slightly tangential thought process, sometimes difficult to follow. Past Medical/Surgical History: Medical History: Pain, chronic: Allergic disorder: Chronic pain: Depression NOS: Migraine NOS (disorder): Seizure disorder (disorder): Pulmonary embolism: Fatigue: Onset Date: 04-Nov-2012 Review Family/Social History and ROS: Review Family/Social History and ROS: I have reviewed the family and social history and review of systems from the History and Physical. Allergies: ? vancomycin: Anaphylaxis (Mild) ? Depakote: Other ? Tegretol: Other ? penicillin: Swelling/Edema ? Septra: Unknown ? Sulfacetamide Sodium: Unknown Intolerances: ? erythromycin: Gastritis Objective: Objective Information: T P R BP SpO2 Value 36.4 83 16 110/64 95% Date/Time 12/23 7:35 12/23 7:35 12/23 7:35 12/23 7:35 12/23 7:35 Range (36.4C - 36.7C ) (67 - 92 ) (16 - 18 ) (110 - 138 )/ (64 - 87 ) (94% - 100% ) Pain reported at 12/23 4:58: sleeping Pain with Activity reported at 12/22 14:12: 9 Pain at Rest reported at 12/23 4:16: 6 Weights 12/23 2:41: Weight in kg (Weight (kg)) 59.7 12/23 2:41: Weight in lbs ((lbs)) 131.6 12/23 2:41: BMI (kg/m2) (BMI (kg/m2)) 22.608 Medications: Medications: Continuous Medications 1. Sodium Chloride 0.9% Infusion: 1000 mL IntraVenous <Continuous> Scheduled Medications No scheduled medications are active PRN Medications 1. HYDROmorphone Injectable: 1 mg IntraVenous Push Every 6 Hours 2. Ondansetron Injectable: 4 mg IntraVenous Push Every 6 Hours Recent Lab Results: Results: I have reviewed these laboratory results: Complete Blood Count Trending View Result 23-Dec-2017 07:14:00 22-Dec-2017 15:53:00 White Blood Cell Count 8.2 11.4 H Red Blood Cell Count 4.17 4.07 HGB 13.4 13.2 HCT 37.9 36.9 MCV 91 91 MCHC 35.4 35.8 PLT 342 341 RDW-CV 13.3 13.2 Comprehensive Metabolic Panel Trending View Result 23-Dec-2017 07:14:00 22-Dec-2017 15:53:00 Glucose, Serum 99 90 NA 142 147 H K 3.8 3.6 CL 108 H 106 Bicarbonate, Serum 25 31 Anion Gap, Serum 13 14 BUN 11 14 CREAT 0.71 0.68 GFR-Non >60 >60 GFR- >60 >60 Calcium, Serum 8.8 9.7 ALB 3.9 4.3 ALKP 86 90 T Pro 7.0 7.5 T Bili 0.6 0.4 Alanine Aminotransferase, Serum 16 16 Aspartate Transaminase, Serum 19 18 Ethanol Level 22-Dec-2017 18:33:00 Result Value Ethanol Level <10 Acetaminophen Level, Serum 22-Dec-2017 18:33:00 Result Value Acetaminophen Level, Serum <10.0 Occult Blood Test 22-Dec-2017 16:33:00 Result Value Occult Bld 1 NEGATIVE Radiology Results: Results: I have reviewed this radiology result: Impression: Stable IVC filter. Previous cholecystectomy. Moderate to pronounced diffuse retained colonic stool. Moderately dilated loop nonspecific intestine deep in the pelvis, filled with gas and stool, without associated inflammation or mass. There is no ascites or pneumoperitoneum. The exact etiology and clinical significance are uncertain. This could be a focally dilated segment of small bowel, either due to partial obstruction or ileus; this does not appear to be redundant right colon or cecum, but that is not excluded. Recommend a repeat exam with adequate oral contrast on board (or rectal contrast if the patient cannot ingest oral contrast material). Emphysematous changes at the lung bases. CT Abdomen and Pelvis with Contrast [Dec 22 2017 5:25PM] Impression: Nonobstructive bowel gas pattern. There is mild gaseous prominence of the sigmoid colon with associated mild fecal retention. Xray Abdomen Complete Decub +/or Erect [Dec 23 2017 12:51PM] Assessment: 52 yo white female with PMH of PE, grand mal seizures, PTSD, depression, unknown autoimmune disease, MRSA skin infection, fibromyalgia and gastritis with GI bleed (2007) presented to ED with hematemesis x 1 day, nausea and vomiting x 1 week with associated abdominal pain. CT abd/pelvis showed possible partial SBO vs focal ileus, but the findings were non-specific and a repeat exam with adequate oral or rectal contrast was recommended by the reading radiologist. Mild leukocytosis has resolved. All other labs unremarkable at this time. #possible partial SBO vs focal ileus -no surgical intervention necessary at this time -will monitor N/V on clear liquid diet. -will order KUB to further evaluate for possible SBO Note not final until signed by attending, Dr. Humberto Abdi, [facility], PGY1 Surgery pager [phone] Signature/Cosignature/Attestation: Attending Attestation I saw and evaluated the patient. I personally obtained the mejias and critical portions of the history and physical exam or was physically present for mejias and critical portions performed by the resident/fellow. I reviewed the resident/fellow?s documentation and discussed the patient with the resident/fellow. I agree with the resident/fellow?s medical decision making as documented in the resident?s note. I personally evaluated the patient (as noted in the above attestation) on 23-Dec-2017 Comments/ Additional Findings 52 yo female with PMH of PE, grand mal seizures, PTSD, depression, unknown autoimmune disease, MRSA skin infection, fibromyalgia and gastritis with GI bleed. presented to ED with bloody vomitus, nausea, and abdominal pain. Patient states that this episode of nausea and vomiting abdominal pain started 1 week ago, but that the bloody vomitus began 1 day ago. feels better and was seen earlier havign tolerated a meal Afebrile with normal vital signs. abdomen soft, non tender CT question of dilated loop, possible partial sbo, possible ileus, possible non specific finding KUB today non specific bowel gas pattern would observe. if n/v pain continues make npo and check KUB no surgical indications Electronic Signatures: Bisi Abdi (Resident)) (Signed 23-Dec-2017 10:31) Authored: Service, History of Present Illness, Past Medical/Surgical History, Review Family/Social History and ROS, Allergies, Objective, Assessment/Recommendations, Signature/Cosignature/Attestation Malik Paul) (Signed 23-Dec-2017 16:03) Authored: Objective, Signature/Cosignature/Attestation Co-Signer: Service, History of Present Illness, Past Medical/Surgical History, Review Family/Social History and ROS, Allergies, Objective, Assessment/Recommendations, Signature/Cosignature/Attestation Last Updated: 23-Dec-2017 16:03 by Malik Paul) CBC Collected: 12/23/2017 Status: F Source: [place] 7:14 AM [facility]ITALS REPOSITORY TYPE CODE TESTS RESULT OUT OF RANGE REFERENCE UNITS LAB WBCR(LOINC) 4.4 - 11.3 x10E9/L WBC 8.2 LAB RBCCT(LOINC 4.00 - 5.20 x10E12/L ) RBC 4.17 LAB HGB(LOINC) 12.0 - 16.0 g/dL HGB 13.4 LAB HCT(LOINC) 36.0 - 46.0 % HCT 37.9 LAB MCV(LOINC) 80 - 100 fL MCV 91 LAB MCHC2(LOINC 32.0 - 36.0 g/dL ) MCHC 35.4 LAB PLTCT(LOINC 150 - 450 x10E9/L ) PLT 342 LAB RDWCV(LOINC 11.5 - 14.5 % ) RDW-CV 13.3 Performed By: #### CBC #### [address] [id number] COMPREHENSIVE PANEL Collected: 12/23/2017 Status: F Source: [place] 7:14 [facility] REPOSITORY TYPE CODE TESTS RESULT OUT OF REFERENCE UNITS RANGE LAB GLU(LOINC) 74 - 99 mg/dL GLUCOSE 99 LAB SOD(LOINC) 136 - 145 mmol/L SODIUM 142 LAB K(LOINC) 3.5 - 5.3 mmol/L POTASSIUM 3.8 LAB CHLOR(LOIN 98 - 107 mmol/L C) CHLORIDE High 108 LAB BIC(LOINC) 21 - 32 mmol/L BICARBONATE 25 LAB ANGAP(LOIN 10 - 20 mmol/L C) ANION GAP 13 LAB UREA(LOINC 6 - 23 mg/dL ) UREA NITROGEN 11 LAB CREA(LOINC 0.50 - 1.05 mg/dL ) CREATININE 0.71 LAB GFRFN(LOIN >60 mL/min/1.7 C) 3m2 GFR-NON AM. >60 LAB GFRAA(LOIN >60 mL/min/1.7 C) 3m2 GFR- AM. >60 Result Comment: CALCULATIONS OF ESTIMATED GFR ARE PERFORMED USING THE MDRD STUDY EQUATION FOR THE IDMS-TRACEABLE CREATININE METHODS. CLIN CHEM 2007;53:766-72 LAB CA(LOINC) 8.6 - 10.3 mg/dL CALCIUM 8.8 LAB ALB(LOINC) 3.4 - 5.0 g/dL ALBUMIN 3.9 LAB AP(LOINC) 33 - 110 U/L ALKALINE PHOSPHATASE 86 LAB TP(LOINC) 6.4 - 8.2 g/dL TOTAL PROTEIN 7.0 LAB AST(LOINC) 9 - 39 U/L AST 19 LAB TBILI(LOINC) 0.0 - 1.2 mg/dL BILIRUBIN,TOTAL 0.6 LAB ALT(LOINC) 7 - 45 U/L ALT 16 Result Comment: Patients treated with Sulfasalazine may generate falsely decreased results for ALT. Performed By: #### CMP #### [facility] [id number] [place], [place] [id number] PATIENT PROFILE - Observed: 12/23/2017 Status: UNK Source: [facility] 2:41 AM [facility] REPOSITORY Profile: Initial Info: How to be Addressed edgardo Spoken Language Preferred Botswanan (1) Are you currently using the Personal Electronic Health Record or [place] no Stated Reason for Admission abd pain, nausea/vomiting Arrived From home Patient Belongings remains with patient Medications Brought to Hospital no General Health: Weight in kg 59.7 kilogram(s) Weight in lbs 131.6 pound(s) Height in cm 162.5 centimeter(s) BMI (kg/m2) 22.608 square meter Weight Method actual (measured) Scale Type bed Height Method stated Blood Avoidance/Restrictions none RSP Based Care: How would you like to participate in your care? Pt lethargic, and unable to hold a conversation What is the number one concern for you during this hospitalization? Pt lethargic What is the most important thing we can do to support you during this hospitalization? Pt lethargic Is there anything we need to know to best care for you? Pt lethargic Substance: Current or Former Substance Use never: Cigarette/Tobacco, Alcohol, Street Drugs Health Mgmt: Symptoms/Conditions Managed at Home gastrointestinal; neurological; cardiovascular Cardiovascular Symptoms/Conditions myocardial infarction Cardiovascular Management Strategies medication therapy; exercise Cardiovascular Management managed Gastrointestinal Symptoms/Conditions reflux/heartburn Gastrointestinal Management Strategies medication therapy Gastrointestinal Management managed Neurological Symptoms/Conditions seizures Neurological Management Strategies medication therapy; activity Neurological Management managed Are You no Relationship/Environ: Primary Source of Support/Comfort child(enid) Lives With adult child(enid) Living Arrangements house Significant Exposure none Resource/Environmental Concerns none Anticipated Transition To home Services Anticipated at Transition none Significant Indicators Complete Information Review: ? Allergies, Home Meds and Significant Events have been Reviewed and Verified with Patient/Family yes ALLERGY, INTOLERANCE, ADVERSE EVENT: Allergies: ? vancomycin: Drug, Anaphylaxis (Mild), Active ? Depakote: Drug, Other, Active ? Tegretol: Drug, Other, Active ? penicillin: Drug, Swelling/Edema, Active ? Septra: Drug, Unknown, Active ? Sulfacetamide Sodium: Drug, Unknown, Active Intolerances: ? erythromycin: Drug, Gastritis, Active Significant Events: 12-Apr-2014 ? ?Atypical Asthma: Past Medical History, Active 11-Apr-2014 ? Migraines: Past Medical History, Active 11-Apr-2014 ? ?RAJAN: Past Medical History, Active 11-Apr-2014 ? Reflex sympathetic dystrophy of all extremities: Past Medical History, Active 11-Apr-2014 ? ?Seritonian syndrome: Past Medical History, Active 11-Apr-2014 ? ?Munchausen Syndrome: Past Medical History, Active 11-Apr-2014 ? Chronic Pain: Past Medical History, Active 11-Apr-2014 ? Frequent MRSA infections/abcesses of skin/soft tissue: Past Medical History, Active 11-Apr-2014 ? Borderline Personality Disorder: Past Medical History, Active 11-Apr-2014 ? Postherpatic Neurolgia: Past Medical History, Active 11-Apr-2014 ? PE/DVT 2006, IVC filter: Past Medical History, Active 11-Apr-2014 ? Depression vs Schizoaffective disorder: Past Medical History, Active 11-Apr-2014 ? Seizure disorder vs pseudoseizures: Past Medical History, Active 10-Apr-2014 ? CVA X 3: Past Medical History, Active 23-Mar-2010 ? 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: Past Medical History, Active 31-Mar-2009 ? Hemmorhagic gastritis: Past Medical History, Active 05-Nov-2008 ? SMOKER 1/2 PACK DAILY: Past Medical History, Active 05-Nov-2008 ? Cardiac Arrest: Past Medical History, Active 05-Nov-2008 ? MRSA: Past Medical History, Active 05-Nov-2008 ? Arthritis: Past Medical History, Active 05-Nov-2008 ? Fibromyalgia: Past Medical History, Active 05-Nov-2008 ? Arrythmia: Past Medical History, Active 15-Oct-2013 ? .Influenza- Influenza Virus: Immunizations, Active, 15-Oct-2013 ? .Pneumonia- Pneumococcal polysaccharide vaccine-adult: Immunizations, Active, 06-Apr-2013 Problem List: Medical History: ? Pain, chronic: Catalog Name: Other chronic pain ? Allergic disorder: Catalog Name: Allergic condition ? Chronic pain: Catalog Name: Chronic pain ? Depression NOS: Catalog Name: Depression NOS ? Migraine NOS (disorder): Catalog Name: Migraine NOS (disorder) ? Seizure disorder (disorder): Catalog Name: Seizure disorder ? Pulmonary embolism: Catalog Name: Pulmonary embolism ? Fatigue: Onset Date: 04-Nov-2012, Catalog Name: Fatigue Prelim Disch Dx: ? Acute opioid withdrawal: Catalog Name: Opioid dependence with withdrawal ? Acute opioid withdrawal: Catalog Name: Opioid dependence with withdrawal ? Open wound of chest wall, uncomplicated: Catalog Name: Open wound of chest wall, uncomplicated ? Open chest wound: Catalog Name: Open wound of chest wall ? Methicillin susceptible Staphylococcus aureus infection: Catalog Name: Infection by methicillin sensitive Staphylococcus aureus ? Memory impairment: Catalog Name: Memory impairment ? Depression: Catalog Name: Depressive disorder ? Depression: Catalog Name: Depressive disorder ? Memory impairment: Catalog Name: Memory impairment ? Memory impairment: Catalog Name: Memory impairment ? Isolated memory impairment: Catalog Name: Memory impairment ? Syncope: Catalog Name: Syncope ? Syncope: Catalog Name: Syncope ? Depression: Catalog Name: Depressive disorder ? Cellulitis of arm: Catalog Name: Cellulitis of upper limb ? Pulmonary embolism: Catalog Name: Pulmonary embolism ? Migraine NOS (disorder): Catalog Name: Migraine NOS (disorder) ? Shingles: Catalog Name: Herpes zoster ? Seizure disorder (disorder): Catalog Name: Seizure disorder ? Post-herpetic neuralgia: Catalog Name: Post-herpetic neuralgia ? Obstructive sleep apnea: Catalog Name: Obstructive sleep apnea ? Pulmonary embolism: Catalog Name: Pulmonary embolism ? Vitamin D deficiency: Catalog Name: Vitamin D deficiency (disorder) ? [Tiredness], [fatigue], [lethargy] or [malaise] symptom: Catalog Name: [Tiredness], [fatigue], [lethargy] or [malaise] symptom ? Respiratory acidosis: Catalog Name: Respiratory acidosis (disorder) Other Dx/Proc: ? Deep Vein Thrombosis: Catalog Name: Deep Vein Thrombosis, Description: Deep Vein Thrombosis ? Abdominal pain: Catalog Name: Abdominal pain, Description: Abdominal pain ? Chronic obstructive pulmonary disease: Onset Date: 19-Mar-2010, Catalog Name: Chronic obstructive pulmonary disease ? Chronic obstructive pulmonary disease: Catalog Name: Chronic obstructive pulmonary disease ? Chronic obstructive pulmonary disease: Catalog Name: Chronic obstructive pulmonary disease Electronic Signatures: Alicia David ([email or web address]) (Signed 23-Dec-2017 02:52) Authored: Profile, Additional Information Last Updated: 23-Dec-2017 02:52 by Alicia David ([email or web address]) References: 1. Data Referenced From Triage - ED 12/22/2017 02:12 PM ADMISSION RISK SCREEN Observed: 12/23/2017 Status: UNK [facility] RE[facility]ITORY Allergies: Allergies: ? vancomycin: Anaphylaxis (Mild) ? Depakote: Other ? Tegretol: Other ? penicillin: Swelling/Edema ? Septra: Unknown ? Sulfacetamide Sodium: Unknown Intolerances: ? erythromycin: Gastritis Patient Verification: ? New W ID Band Applied in my Department no ? Type of ID Patient is Wearing W wristband, but not applied here ? Patient Transferred from Other Facility ([facility], [facility],etc) no ? Patient Identity Verified By patient ? ID Band FULL Name, include Middle, spelling matches patient's ID used for verification yes ? ID Band Matches Patient ID used for Verfication yes ? ID Band MRN Matches EMR MRN yes Advance Directive: ? Advance Directive Medical no (1) ? Advance Directive Information Given patient/family declined (1) ? Advance Directive Mental Health not applicable Falls Screen: Type of Assessment admission High Risk Factors nursing judgment (specify) Risk for Injury Associated with Fall coagulation ? blood thinners (Coumadin, heparin gtt), coagulopathy Fall Risk Conclusion high falls risk with low risk for associated injury [place] Safety Interventions WDL *orient to call system *instruct to call for assistance before getting out of bed *non-slip footwear when patient is out of bed *call ornelas in reach *personal items and telephone in reach *physically safe environment (no spills or clutter) *bed in lowest position with wheels locked *appropriate side rails in place *room/bathroom lighting operational, light cord in reach *appropriate signage on door Family Violence Screen: ? Are you or have you been threatened or abused physically, emotionally, or sexually by anyone? no ? Has anyone ever threatened to hurt your family or your pets? no ? Does anyone try to keep you from having/contacting other friends or doing things outside your home? no ? Do you feel UNSAFE going back to the place where you are living? no ? Do you feel anyone has exploited or taken advantage of you financially or of your personal property? no ? Clinical assessment: Are there any apparent signs of injuries/behaviors that could be related to abuse/neglect no ? Social Service Consult for abuse/neglect needed this visit? no Functional screen: ? Functional Screen: In the recent/past 2-4 weeks, patient or family have noticed no issues that require a rehabilitation consult at this time Learning Assessment (Patient): ? Patient is Able to be Assessed for Learning no ? Reason Unable to Assess lethargic Learning Assessment (Other Learner): ? Other learner available no Suicide/Depression Screen: ? During the past month, have you often been bothered by feeling down, depressed or hopeless? no (1) ? During the past month, have you often had little interest or pleasure in doing things? no (1) ? Have you had any thoughts of harming yourself? no (1) ? Have you had any thoughts of harming anyone else? no (1) Adult Nutrition Screen: ? Have you recently lost weight without trying unsure ? Have you been eating poorly because of a decreased appetite no ? MST Score 2 ? Risk MST = 0 or 1 Not at risk. Eating well with little or no weight loss ? Nutrition Consult needed this visit? no ? Can Patient Participate in Room Service? yes ? Patient requires Paper Dishes/Plastic Utensils no Pain Screen: ? Pain Scale numerical 0-10 ? Pain Scale Education teaching provided ? Current Pain Level 0 = None ? Acceptable Pain Level 1 = Mild ? Expression of Pain (nonverbal) none ? Chronic Pain no Spiritual Screen: ? Are there any cultural, spiritual, sabianism practices/values/needs that are important for us to know? no ? Do you want a visit/item from Pastoral Care? no CAGE: Is this an injured patient at a Trauma Center ([facility] / [facility]): no (1) Vaccinations: .Influenza- Influenza Virus: Immunizations, 15-Oct-2013 .Pneumonia- Pneumococcal polysaccharide vaccine-adult: Immunizations, 06-Apr-2013 Vaccination - Influenza Vaccination Screen: ? Is it flu season? (between and ) No Vaccination - Pneumonia Vaccination Screen: ? Patient has received a previous pneumonia vaccine: no/unknown... ? Immunocompetent persons with underlying chronic conditions or reside in nursing home care facilities none of these conditions ? Persons with Functional or Anatomic Asplenia none of these conditions ? Immunocompromised Persons none of these conditions ? Pneumonia vaccine NOT indicated due to: patient DOES NOT have a condition that indicates vaccination Salvador: Skin - Salvador Scale: ? Salvador: Sensory Perception (response to environment) (3) slightly limited ? [place]: Moisture (degree skin exposed to moisture) (4) rarely moist ? [place]: Activity (ability to walk) (3) walks occasionally ? [place]: Mobility (amount/control of body movement) (3) slightly limited ? [place]: Nutrition (quality of food intake) (2) probably inadequate ? [place]: Friction and Shear (2) potential problem ? Salvador: Score 17 ? Skin Intervention Orders (Nursing orders will be generated) elevate heels, up in chair < 1 hr intervals, turn side to side every 2 hrs, assess for therapeutic equipment, assess pressure points, hygiene care, toilet/ADL every 2 hrs awake, toilet/ADL every 4 hrs asleep, educate prevent/treat pressure ulcer Significant Indicatiors: Significant Indicators: Complete Pressure Injury: Pressure Injury Present on Admission no Electronic Signatures: Alicia David (RN) (Signed 23-Dec-2017 02:40) Authored: Admission Risk Screens, Vaccinations, Salvador, Pressure Injury Last Updated: 23-Dec-2017 02:40 by Alicia David (RN) References: 1. Data Referenced From Risk Screen - Adult Emergency 12/22/2017 07:15 PM DISCHARGE PLANNING Observed: 12/22/2017 Status: UNK Source: [facility] 8[facility]32 [facility] REPOSITORY Discharge Needs Assessment: ? Discharge Planning Assessment Date 23-Dec-2017 ? Discharge Planning Assessment Completed by Kathi Dillon, Registered Nurse, Qualitative Field Coordinator ? Readmission Within the Last 30 Days no previous admission in last 30 days ? Primary Care Physician Dr. Ryan Castano [phone] [facility] Adult Information: ? Reason for Admission as Stated by Patient vomiting blood ? Primary Support Person During Hospitalization carly Ramirez ? Lives With children; other relative; daughter grandson Patient Learning: ? Factors that Impact Ability to Learn none(1) Discharge Needs: ? Services Anticipated at Discharge none ? Anticipated Discharge Disposition home ? Type of Equipment Currently in the Home walker from previous needs ? Anticipated Discharge Facility/Level of Care Needs Home Discharge Planning: Discharge Planning: Pt lives with her daughter and grandson. 12/23/17 Met with patient regarding discharge planning and home going needs at bedside. Patient lives at home with her daughter and grandson. Patient says she is independent with ADL's and ambulation. Patient says she has enough help at home. No C needs identified at this time. PCP is Dr. Ryan Castano in [place]. She says she has an appt. next Tue/ with him. Pharmacy preference is [facility]. Managing Your Health at Home document and Education material on vomiting blood given and reviewed with patient. Kathi Dillon RN [address] Qualitative Field Coordinator PLAN: IVFL-may need surgical consult 12/27/17 Patient discharged but is refusing to leave. UM, bedside nurse and Nurse Field Marketing Associate in room talking with patient. Will follow. Kathi Dillon Registered Nurse, Qualitative Field Coordinator 12/28/17 Patient stayed overnight and is still discharged. Patient requested new PCP information. CC printed out three internal medicine doctors under her zip code and gave to patient. Bedside nurse reviewed discharge instructions with patient and police escorted patient out. Kathi Dillon Registered Nurse, Qualitative Field Coordinator Final Disposition/Discharge: Disposition/Discharge Information: Discharge/Transfer Information: ? Discharge/Transfer Date/Time 28-Dec-2017 13:45 ? Discharged Accompanied By security ? Discharge Mode wheelchair ? Transportation Method transportation service ? Valuables/Medications/Belongings Returned yes ? Final Disposition Home Electronic Signatures: Flaquita West (ABIODUN) (Signed 28-Dec-2017 15:11) Authored: Final Disposition/Discharge Sonam Sal (CLIN COOR) (Signed 28-Dec-2017 13:53) Authored: Discharge Planning Note Alicia David (RN) (Signed 22-Dec-2017 20:33) Authored: Discharge Planning Note Last Updated: 28-Dec-2017 15:11 by Flaquita West (RN) References: 1. Data Referenced From Risk Screen - Adult Emergency 12/22/2017 07:15 PM RISK SCREEN - ADULT Observed: 12/22/2017 Status: UNK Source: [facility] 7:15 [facility] REPOSITORY Preferred Language: Preferred Language: ? Preferred Language for Discussing Health Care (patient/designee) B[place] Advanced Directives: ? Advance Directive Medical no ? Advance Directive Information Given patient/family declined Family Violence Adult: Abuse Screen: ? Are you or have you been threatened or abused physically, emotionally, or sexually by anyone? no Suicide / Depression: Suicide/Depression Screen: ? During the past month, have you often been bothered by feeling down, depressed or hopeless? no ? During the past month, have you often had little interest or pleasure in doing things? no ? Have you had any thoughts of harming yourself? no (1) ? Have you had any thoughts of harming anyone else? no (1) Learning Assessment (Patient): Learning Assessment (Patient): ? Patient is Able to be Assessed for Learning yes ? Factors Influencing Readiness to Learn acuteness of illness ? Factors that Impact Ability to Learn none ? Devices/Methods Used to Communicate none ? Learning Preferences verbal instruction ? Cultural Considerations none ? Developmental Considerations none ? Lutheran Considerations none Learning Assessment (Other Learner): Learning Assessment (Other Learner): ? Other learner available no Fall Risk Adult: Falls Risk: ? Altered Mobility none ? Change in Mental Status no ? Relevant Medical History / Diagnosis none ? Fall History none ? Altered Elimination no ? Medications that Might Alter: equilibrium, cognitive judgement or severity of injury none ? Sensory Deficit no ? UNABLE or UNWILLING to Follow Directions no ? Patient Identified as a Falls Risk no ? Provide Rationale not identified as Falls Risk no risk factors identified Pressure Injury: Pressure Injury Present on Admission no Respiratory / Cough /TB: ED / TB / Cough / Respiratory Screen: ? Do you have a cough? no Smoking/Social History (Required age 13 or older): Smoking Status: never smoker Alcohol Use: denies Drug Use: denies Admission Risk Screen: ? Significant Indicators Complete CAGE: CAGE: Is this an injured patient at a Trauma Center ([facility] / [facility]): no Electronic Signatures: Marina Mckinney (ABIODUN) (Signed 22-Dec-2017 19:15) Authored: Preferred Language, Advanced Directives, Family Violence Adult, Suicide / Depression, Learning Assessment (Patient), Learning Assessment (Other Learner), Fall Risk Adult, Pressure Injury, Respiratory / Cough /TB, Smoking/Social History (Required age 13 or older), CAGE Last Updated: 22-Dec-2017 19:15 by Marina Mckinney (ABIODUN) References: 1. Data Referenced From Triage - ED 12/22/2017 2:12 PM ACETAMINOPHEN Collected: 12/22/2017 Status: F Source: [place] 6:33 [facility] REPOSITORY TYPE CODE TESTS RESULT OUT OF REFERENCE UNITS RANGE LAB ACETA(LOIN 10.0 - 30.0 ug/mL C) ACETAMINOPHEN <10.0 Performed By: #### ACETA #### [facility] [address] [place], [place] [id number] ALCOHOL Collected: 12/22/2017 Status: F Source: [place] 6:33 [facility] REPOSITORY TYPE CODE TESTS RESULT OUT OF REFERENCE UNITS RANGE LAB ALC(LOINC) mg/dL ALCOHOL <10 Result Comment: FOR MEDICAL USE ONLY. . REF VALUES <10 Performed By: #### ALC #### [facility] [address] [place], [place] [id number] ABDOMEN AND PELVIS Observed: 12/22/2017 Status: F Source: [place] WITH CONTRAST 5:05 [facility] REPOSITORY Patient Name: EDGARDO DENSON STUDY: CT ABDOMEN AND PELVIS WITH CONTRAST; 12/22/2017 5:05 pm INDICATION: 52 y/o F with Signs/Symptoms: bloody vomitus, nausea, abdominal pain. LIMITATIONS: None. ACCESSION NUMBER(S): [id number] ORDERING CLINICIAN: VOLODYMYR SKY TECHNIQUE: After the administration of IV nonionic contrast, spiral axial images were obtained from the xiphoid down through the symphysis pubis. Axial and coronal reconstruction images were generated. Bone, mediastinal, lung, and liver windows were reviewed. IV contrast agent was Optiray 350, 80 ml. COMPARISON: Prior exam from 09/20/2015. FINDINGS: LUNG BASES: No mass or pneumonia or pleural effusion in either lung base.. Emphysematous changes in the imaged lungs. No cardiomegaly or pericardial effusion. LIVER: No hepatomegaly. Liver density was grossly within the limits of normal. No abnormally enhancing liver lesion. Normal enhancement of the hepatic veins and portal veins. BILE DUCTS: No intrahepatic biliary ductal dilatation. Common bile duct was within the limits of normal. GALLBLADDER: Surgically absent. SPLEEN: No splenomegaly or splenic mass.. PANCREAS: No pancreatic mass or inflammation, or ductal dilatation. KIDNEYS/ADRENALS: No adrenal mass or enlargement. No calcified stone, hydronephrosis, mass, or perinephric edema in either kidney. BLADDER/PELVIS: Urinary bladder was grossly intact. No gross pelvic mass. GREAT VESSELS/RETROPERITONEUM: Stable IVC filter in place. Mild aortoiliac calcifications without aneurysmal dilatation. No suspicious retroperitoneal adenopathy. No suspicious mesenteric adenopathy. No suspicious pelvic or inguinal adenopathy. PERITONEUM: No ascites. No pneumoperitoneum. No peritoneal or mesenteric mass or inflammation. BOWEL: There was only a small amount of fluid in the stomach which was otherwise empty and collapsed. There was a short-segment of small bowel in the left upper quadrant of the abdomen that showed mild gaseous distention with but no inflammation or wall thickening. The other small bowel loops were unremarkable. There was moderate to pronounced stool throughout the colon and rectum. There was however a moderately dilated loop bowel deep in the pelvis adjacent to the uterus and the sigmoid, but not clearly the cecum, and this was distended with gas and stool. There was no wall thickening or adjacent edema. BONES: No destructive lytic or blastic bone lesion. Moderate disc space narrowing with endplate sclerosis and osteophytosis and vacuum disc phenomenon at L2-3, progressed. Stable grade 1 anterolisthesis of L3 over L4 mild stable disc space narrowing and endplate osteophytosis at that level. No lumbar compression fracture. ABDOMINAL WALL: Unremarkable. IMPRESSION: Stable IVC filter. Previous cholecystectomy. Moderate to pronounced diffuse retained colonic stool. Moderately dilated loop nonspecific intestine deep in the pelvis, filled with gas and stool, without associated inflammation or mass. There is no ascites or pneumoperitoneum. The exact etiology and clinical significance are uncertain. This could be a focally dilated segment of small bowel, either due to partial obstruction or ileus; this does not appear to be redundant right colon or cecum, but that is not excluded. Recommend a repeat exam with adequate oral contrast on board (or rectal contrast if the patient cannot ingest oral contrast material). Emphysematous changes at the lung bases. Electronically signed by: ROCÍO SEXTON MD OCCULT BLOOD Collected: 12/22/2017 Status: F Source: [facility] 4:33 PM HOSPITALS REPOSITORY TYPE CODE TESTS RESULT OUT OF REFERENCE UNITS RANGE LAB OCBLD(LOINC Negative ) OCCULT NEGATIVE BLOOD,STOOL Performed By: #### OCCB1 #### [address] [id number] CBC Collected: 12/22/2017 Status: F Source: [place] 3:53 PM HOSPITALS REPOSITORY TYPE CODE TESTS RESULT OUT OF RANGE REFERENCE UNITS LAB WBCR(LOINC) 4.4 - 11.3 x10E9/L High WBC 11.4 LAB RBCCT(LOINC 4.00 - 5.20 x10E12/L ) RBC 4.07 LAB HGB(LOINC) 12.0 - 16.0 g/dL HGB 13.2 LAB HCT(LOINC) 36.0 - 46.0 % HCT 36.9 LAB MCV(LOINC) 80 - 100 fL MCV 91 LAB MCHC2(LOINC 32.0 - 36.0 g/dL ) MCHC 35.8 LAB PLTCT(LOINC 150 - 450 x10E9/L ) PLT 341 LAB RDWCV(LOINC 11.5 - 14.5 % ) RDW-CV 13.2 Performed By: #### CBC #### [facility] [address] [place], [place] [id number] COMPREHENSIVE PANEL Collected: 12/22/2017 Status: F Source: [place] 3:53 PM HOSPITALS REPOSITORY TYPE CODE TESTS RESULT OUT OF REFERENCE UNITS RANGE LAB GLU(LOINC) 74 - 99 mg/dL GLUCOSE 90 LAB SOD(LOINC) 136 - 145 mmol/L SODIUM High 147 LAB K(LOINC) 3.5 - 5.3 mmol/L POTASSIUM 3.6 LAB CHLOR(LOIN 98 - 107 mmol/L C) CHLORIDE 106 LAB BIC(LOINC) 21 - 32 mmol/L BICARBONATE 31 LAB ANGAP(LOIN 10 - 20 mmol/L C) ANION GAP 14 LAB UREA(LOINC 6 - 23 mg/dL ) UREA NITROGEN 14 LAB CREA(LOINC 0.50 - 1.05 mg/dL ) CREATININE 0.68 LAB GFRFN(LOIN >60 mL/min/1.7 C) 3m2 GFR-NON AM. >60 LAB GFRAA(LOIN >60 mL/min/1.7 C) 3m2 GFR- AM. >60 Result Comment: CALCULATIONS OF ESTIMATED GFR ARE PERFORMED USING THE MDRD STUDY EQUATION FOR THE IDMS-TRACEABLE CREATININE METHODS. CLIN CHEM 2007;53:766-72 LAB CA(LOINC) 8.6 - 10.3 mg/dL CALCIUM 9.7 LAB ALB(LOINC) 3.4 - 5.0 g/dL ALBUMIN 4.3 LAB AP(LOINC) 33 - 110 U/L ALKALINE PHOSPHATASE 90 LAB TP(LOINC) 6.4 - 8.2 g/dL TOTAL PROTEIN 7.5 LAB AST(LOINC) 9 - 39 U/L AST 18 LAB TBILI(LOINC) 0.0 - 1.2 mg/dL BILIRUBIN,TOTAL 0.4 LAB ALT(LOINC) 7 - 45 U/L ALT 16 Result Comment: Patients treated with Sulfasalazine may generate falsely decreased results for ALT. Performed By: #### CMP #### [facility] [address] [place], [place] [id number] PROVIDER NOTE - ED Observed: 12/22/2017 Status: COMPLETED Source: [place] 3:28 PM HOSPITALS REPOSITORY Time Seen: ? Time Seen 22-Dec-2017 14:28 Triage Vital Signs: ? Triage Information Most recent Vital Sign Value Date Temp (F): 98.2 12-22-2017 14:12 Temp (C): 36.7 12-22-2017 14:12 Heart Rate (beats/min): 92 12-22-2017 14:12 Respirations (breaths/min): 18 12-22-2017 14:12 SpO2 (%): 100 12-22-2017 14:12 BP Systolic (mm Hg): 121 12-22-2017 14:12 BP Diastolic (mm Hg): 74 12-22-2017 14:12 History of Present Illness: /Lactating: ? Are You no (1) ? Are You Currently no (1) This 52 year old Female presents with complaint(s) of bloody vomitus(1) Past Medical History: Medical History: ? Pain, chronic: ? Allergic disorder: ? Chronic pain: ? Depression NOS: ? Migraine NOS (disorder): ? Seizure disorder (disorder): ? Pulmonary embolism: ? Fatigue: Onset Date: 04-Nov-2012 Allergy, Intolerance, Adverse Event: Allergies: ? vancomycin: Drug, Anaphylaxis (Mild), Active ? Depakote: Drug, Other, Active ? Tegretol: Drug, Other, Active ? penicillin: Drug, Swelling/Edema, Active ? Septra: Drug, Unknown, Active ? Sulfacetamide Sodium: Drug, Unknown, Active Intolerances: ? erythromycin: Drug, Gastritis, Active Outpatient Medication, Review/Add Medications: * Incomplete Medication History as of 22-Dec-2017 15:03 documented in Structured Notes HISTORY ATTESTATION: ? Attestation I have reviewed and confirmed nurse's/medic's notes for patient's medications, allergies, medical history, and surgical history Review of Systems: ? Constitutional POSITIVE: anorexia negative: chills, malaise/fatigue ? Eye negative: lacrimation, photophobia, vision changes ? Ear negative: discharge, hearing loss, tinnitus ? Nose negative: discharge, obstruction ? Mouth/Throat/Teeth negative: hoarseness, toothache, throat pain ? Neck negative: pain, swollen glands ? Cardiovascular negative: bradycardia, claudication, irregular rhythm, tachycardia ? Respiratory negative: dyspnea, pleuritic chest pain ? Gastrointestinal POSITIVE: abdominal pain, nausea, vomiting negative: diarrhea, melena, stool incontinence ? Genitourinary negative: dysuria, urgency, urine output increased, dyspareunia, vaginal discharge ? Musculoskeletal negative: gout, sensory deficits, swelling ? Integumentary negative: dryness, hives, jaundice, mole changes, thin skin ? Neurological negative: dizziness, loss of consciousness, memory impairment, sensory deficits ? Psychiatric negative: depression, memory changes ? Endocrine negative: change in glove/shoe size, hot flashes, polyuria ? Heme/Lymph negative: easy bleeding, jaundice, swollen lymph nodes ? Allergic/Immunologic negative: dermatitis, HIV, latex allergy Vital Signs: ? Objective Information T P R BP SpO2 O2(LPM) %FiO2 Method 22-Dec-2017 14:12:00- 36.7 92 18 121/74 100 room air, no respiratory support PROGRESS NOTE: ? ED Course: HPI: patient is a 52 year old female, with a PMH of Fibromyalgia, PTSD, depression, and unknown autoimmune disease who presents to with ED with bloody vomitus, nausea, and abdominal pain. Patient states that this episode of vomiting lasted 1 week, but that the bloody vomitus began last night. Patient also states that the increase in abdominal pain has lasted about a week as well. Nausea has also increased with severity over the last week. Patient denies any SOB/CP/F. Patient has no further complaints at this time. ROS: Positive for nausea, vomiting, abdominal pain. Negative for all other systems PMH: As stated in HPI Medications: Pradaxa, Vimpat, Clonipine, Perocet, Zantac Vitamin D, Neurontin, Effexor, Clairitin, Prilosec, Phenergan Surgeries: Gall bladder, C section, I&D left leg Allergies: Depakote, Sulfa Drugs, Vancomycin (hives) Hospitalizations: Gastritis in 2008, Cellulitis, PE, Stroke SH: Smokes up to 1 pack per day, denies ETOH use Physical Exam Gen: Patient is drowsy at bedside, difficult to arouse. HEENT:Head-NCAT, PERRLA, MMM, no oral lesions, neck supple, no JVD, no bruits Heart: RRR. No murmurs or rubs Lungs: CTAB. No wheezing, no cough. Good diaphragmatic excursion Abd: Tenderness noted to right and left lower quadrants. +BS x4, no rebound tenderness, no guarding Neuro: AAO x3. CN II-XII grossly intact. Sensation intact. Speech intact. Motor strength intact. +DTRs DESTINY: No joint swelling or erythema. ROM intact Ext: No LE edema, +2 pedal pulses bilaterally. Capillary refill <2s Lymphatic: No significant lymphadenopathy Psychiatric: Appropriate mood. Insight intact Skin: No lesions or rash ED Course: WBC - 11.4. Na - 147. CBC and CMP are otherwise unremarkable. UTox, Ethanol level, and Acetaminophen levels are all pending. CT abd/pelvis - moderately dilated loop nonspecific intestine deep in the pelvis. SBO vs Ileus. Fecal occult - negative. Spoke to Dr. Mayes who will be the hospitalist accepting this patient on the floor for admission. Gen Surgery will be consulted once the patient is admitted. Patient condition is fair. Patient is aggreable to this admission. Seen with attending Volodymyr Sky, PGY-1 Podiatric Surgery Diagnoses/Visit Problems: ? Intractable vomiting with nausea: ? Hematemesis: DISCHARGE DISPOSITION: ? Disposition: admitted ? Disposition: MedSurg CONDITION ON DISPO: ? Condition on Disposition fair MEDICATION RECONCILIATION/DISCHARGE MEDS: * Outpatient Medication Status not yet specified Attestation: CRITICAL CARE: ? Is This a Critically Ill Patient no Co-Sign/Attestation: Attestation: I saw and evaluated the patient. I personally obtained the mejias and critical portions of the history and physical exam or was physically present for mejias and critical portions performed by the resident/fellow. I reviewed the resident/fellow?s documentation and discussed the patient with the resident/fellow. I agree with the resident/fellow?s medical decision making as documented in the resident?s note Comments/ Additional Findings: 52-year-old female known history of fibromyalgia posttraumatic stress depression and some ill-defined autoimmune disease by her history. Patient with intractable nausea and vomiting with a borderline elevation white count 11,400. CT abdomen and pelvis displayed evidence of a dilated loop of intestine identified. The pelvis appears potential cause for a partial bowel obstruction fecal occult was obtained and was negative patient admitted with consultation by general surgery patient displaying no marked gastric dilatation held on any nasogastric tube. Patient did have an element of hematemesis stool for guaiac negative for occult blood Electronic Signatures: J Luis Stovall) (Signed 25-Dec-2017 05:52) Authored: Attestation Co-Signer: Time Seen / ED Notes, Triage Vital Signs, History of Present Illness, Patient History, History Attestation, ROS, Vital Signs, Progress Note, ED Disposition (REQUIRED), Attestation Volodymyr Sky (DPM (Resident)) (Signed 22-Dec-2017 18:50) Authored: Time Seen / ED Notes, Triage Vital Signs, History of Present Illness, Patient History, History Attestation, ROS, Vital Signs, Progress Note, ED Disposition (REQUIRED), Attestation Last Updated: 25-Dec-2017 05:52 by J Luis Stovall) References: 1. Data Referenced From Triage - ED 12/22/2017 2:12 PM TRIAGE - ED Observed: 12/22/2017 Status: UNK Source: [place] 2:12 PM [facility]IT[facility] REPOSITORY Quick Triage: Are You no Are You Currently no Pain: Acceptable Pain Level (0-10) 9 Pain Rating (0-10): Rest 9 Pain Rating (0-10): Activity 9 Chart Review: CHIEF COMPLAINT EDGARDO DENSON is a Female patient with a chief complaint of bloody vomitus. Onset of the Complaint: 21-Dec-2017 Triage Date/Time: 22-Dec-2017 14:12 Pain Rating (0-10): Rest: 9 Pain Rating (0-10): Activity: 9 Acceptable Pain Level (0-10): 9 Pain location: abd pain Vital Signs: Temperature: 98.2F ( 36.7C) taken oral Blood Pressure: 121/74 Mean: Heart Rate: 92 Respiratory Rate: 18 Pulse Oximetry: 100% on room air, no respiratory support. Height: 5 feet 4.00 inches. 162.5 CM Weight: 118.0 pounds. Calculated 53.5 kg. (stated) Calculated BMI (kg/m2): 20.260 Calculated BSA (m2) 1.55 Cough lasting greater than 3 weeks: no Travel outside of [place]: no Allergies: no Last menstrual period: unknown Patient has suicidal thoughts: no Patient has homicidal thoughts: no SABINE: 3V Symptoms Are POSITIVE For: vomiting. Symptoms Are Negative For: anorexia, constipation, diaphoresis, diarrhea, distention, fever, nausea and rectal blood. PAIN Pain Scale Used: LISANDRO ARRIVAL INFORMATION Means of Arrival: Ambulatory Mode of Arrival: private vehicle Arrival From: home Accompanied By: self Language: Spoken Language Preferred: [place]an Reading Language Preferred: [place]an PRIMARY ASSESSMENT EDGARDO DENSON's primary assessment is Within Normal Limits. The airway is open and patent. Breathing spontaneous and unlabored with clear breath sounds bilaterally. Circulation is normal with good peripheral pulses. Skin is warm and dry and color is normal for race. PAST MEDICAL HISTORY Immunization History: Last Known Tetanus Immunization: Greater than 10 years TRAVEL HISTORY Travel Exposure History: NO travel to International locations in the past 30 days Past Medical History: ? Past Medical History Reviewed yes Electronic Signatures: César Luz (EMT-P) (Signed 22-Dec-2017 14:20) Authored: Triage, Past Medical History Last Updated: 22-Dec-2017 14:20 by César Luz (EMT-P) PROGRESS Observed: 12/21/2017 Status: COMPLETED Source: [place] 1:02 PM [facility] REPOSITORY HNO ID: [id number] Author: Raymond Cornejo Service: (none) Author Type: Physician Type: Progress Notes Filed: 12/22/2017 12:15 PM Note Text: Referring Physician: Ryan Castano MD ([facility]) [facility] [address] [facility] [address] Chief Complaint: Patient presents with: Pain: neck with radiation down bilateral arms, and low back with radiation down bilateral legs HISTORY OF PRESENT ILLNESS: Edgardo Denson presents to [facility] Pain Management Department for the evaluation of diffuse myofascial pain. When asked where her pain is located, she replies: everywhere. The pain started after a work-related injury in 1996. Physical Therapy/Home Exercise: Yes Do you feel safe at home? Yes Occupation: Disabled Any special cultural or sabianism practices that will affect treatment: No Baseline Urine Toxicology obtained: N/A Narcotic Agreement reviewed and signed: N/A Pain Medications: - Opioids: Percocet 5/325 one every 6 hours as needed . Last dose 12/21/2086. Prescribed by Dr. Castano - NSAIDs: none - Anti-Depressants: Effexor 300 mg daily - Anti-Convulsants: gabapentin 900 mg tid - Others: Vitamin D 50,000 units weekly Pain medications reviewed: Yes Pain Procedures: none PAST MEDICAL HISTORY Diagnosis Date - Asthma - Cellulitis and abscess of leg, except foot 03/01/2007 Orig Leg issue 1996 - Chronic pain syndrome 05/27/2008 Post-herpetic Neuralgia - Depression, reactive - DJD (degenerative joint disease), cervical - Esophageal reflux Hemorrhagic gastritis / hx GI - Headache - Muscle spasm BZD - Other convulsions 02/25/2009 - PE (pulmonary embolism) 07/2006 - PMH - PAST MEDICAL HISTORY OF 07/19/2005 h/o right leg DVT, PE, s/p IVC filter - PMH - PAST MEDICAL HISTORY OF 2005 h/o Osteomyelitis infection - Sleep disturbance, unspecified sleep study 12/21 didn't show sleep apnea but some central apneas - Syncope Dr. 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 PAST SURGICAL HISTORY Procedure Laterality Date - DELIVERY ONLY , low transverse - COLONOSCOP W/ OR W/O [facility] SPEC Colonoscopy - EGD W/O OR W/BRUSH/WASH EGD - LAPAROSCOPIC CHOLEYCYSTECTOMY Cholecystectomy, lap - PAST SURGICAL HISTORY OF 07/20 s/p IVC filter by Dr. Mcpherson - PAST SURGICAL HISTORY OF leg debridements for MRSA Social History: She denies any history of illicit substance abuse or heavy/maladaptive ETOH use. FAMILY HISTORY Problem Relation Age of Onset - Ischemic Heart Disease Mother - Stroke Mother - Diabetes Father - renal cell cancer [OTHER] Father Testical cancer, primary renal cancer - testicular cancer [OTHER] Father - Lipids Sister - Lipids Brother - Colon Cancer Paternal Grandmother - stomach cancer [OTHER] Paternal Grandmother - Breast Cancer No Family History ALLERGIES Allergen Reactions - Cellacefate Swelling - Depakote [Divalproe* GI Upset - Dilantin [Phenytoin* GI Upset - Fish Containing Pro* Unknown - Penicillin G GI Upset tolerates zosyn . sdm. 03/2007 TOLERATES KEFLEX 3-31-11 - Shrimp Unknown - Sulfa (Sulfonamide * GI Upset Gastritis - Topamax [Topiramate] Mental Status Change - Haldol [Haloperidol] Mental Status Change, Cough, GI Upset, Itching The above sections (except for History of Present Illness) were completed by: Olya Pearson RN and reveiwed by Dr. Cornejo. REVIEW OF SYSTEMS: CARDIAC: no cardiac arrhythmias, no IA, history of CVA, no heart failure HEENT: no history of glaucoma ONCOLOGY: no history of cancer, Positive history of tubulovillous adenoma : no urinary retention GASTROINTESTINAL: history of hemorrhagic gastritis GENITOURIANRY: no history of renal insufficiency, or hematuria PSYCH: moderate depression, anxiety and PTSD, no bipolar disorder or schizophrenia She denies any suicidal or homicidal ideation and a behavioral contract for safety was made with the patient. OBJECTIVE: BP 114/79 Pulse 95 Temp (Src) 98.4 (Oral) Resp 20 Ht 5' 4 (1.63m) Wt 118 lb (53.5kg) BMI 20.24 kg/(m2). PHYSICAL EXAMINATION: The entire physical examination was performed with Kathi Alfaro RN present as livestock auctioneer. General appearance: Well appearing, in no acute distress, alert. Psych: The patient is intermittently tearful throughout the interview and examination. She developed a significantly flattened affect with associated crying when informed that ongoing use of opioids is not optimal treatment for her pain complaints. Cor: Auscultation reveals: S1, S2, RRR at upper sternal border Pulm: CTA with good air movement anteriorlly, bilaterally GI: Abdomen is soft with normoactive bowel sounds. Mild nonspecific tenderness is noted. Musculoskeletal: Diffuse myofascial pain/tender points noted over multiple areas, including bilateral trapezius musculature, bilateral anterior second ribs, upper extremity, and lower extremity. Extremities: 1+ posterior tibial pulse on the right and 2+ posterior tibial pulse in the left. ASSESSMENT: 52 year old female with diffuse myofascial pain. She has a difficult time describing the onset of symptoms, however, she reports chronic pain since 1996. Physical examination is consistent with diffuse myofascial pain/tender points. She has a significant amount of comorbid pathology with depression, anxiety, and PTSD, which are likely contributing to the severity of her pain complaints, and interfering with adequate treatment of chronic pain. She has been maintained on moderately high doses of opioids until recently, when fentanyl patch was weaned (approximately one month ago). However, she continues on moderate doses of Percocet, taking this approximate 4 times a day, on average. In order to determine optimal treatment for this patient, it must be remembered that chronic opioid therapy is not appropriate treatment for chronic pain complaints. Chronic opioid therapy actually worsens chronic pain through multiple mechanisms. Some clinical studies demonstrating this are provided: (Jitendra Roberto et. al., Pain 157, 849-857 (2016).) (Willy et. al., Journal of Pain 7(1), 43-8 (2006).) and (Renata Cooper et. al., Pain 156, 5151-2489 (2015).). A recent randomized trial also confirmed these findings: Carisa MONTANEZ, Myles A, Clemente S, et al. SPACE randomized clinical trial. DAISY. 2018;319(9):872-882. Further arguing against use of opioids in this patient is her concurrent use of benzodiazepines, which place her at significantly increased risk for adverse outcomes (a 15?fold increased risk of in patients when using benzodiazepines concurrently with opioids, compared to those to take neither medication as an outpatient, and a current Black?Box warning on opioids recommending against concurrent use with benzodiazepines). Additional factors arguing against ongoing use of opioids is the patient's history of central sleep apnea, which can be worsened by opioids, possibly resulting in very severe adverse effects, including . She is on anticoagulation for PE, making interventional therapy more complicated. She continues on Effexor ER 150 mg QD. She has reported allergies to topiramate, valproic acid, and carbamazepine. We are avoiding all NSAIDs, given her history of hemorrhagic gastritis. We are avoiding memantine, given her history of seizures. 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 Castano's last office note from 12/02/2017. She was advised to decrease Percocet to 3 times daily, as needed for 3 days, followed by 2 times daily as needed for 3 days, followed by once daily as needed for 3 days, followed by complete discontinuation of opioids. She was advised to take her remaining opioids to her local police station for disposal. 2) she has been referred to PT/OT, to include aqua therapy and kinesiotaping, in order to help with diffuse myofascial pain. She was advised to engage in her home exercise program on a daily basis. 3) as the patient weans opioids, we will initiate low?dose naltrexone at 2 mg QPM to help with diffuse myofascial pain. 4) she was provided with a short course of baclofen 5?10 mg Q 8 hours PRN to help with acute worsening of pain complaints. She was advised that this can cause drowsiness and she should avoid activities that require alertness while taking this medication. 5) she was advised to obtain the following dietary supplements [id number]-qqg-wopitcg and take as noted below in order to help with diffuse myofascial pain: --coenzyme Q10 400 mg every day --magnesium oxide 400-800 mg every day --vitamin B complex, 2 tabs, 2 times every day --alpha lipoic acid 600 mg 2 times every day 6) because disorder sleep patterns are well?known to worsen chronic pain complaints, she has been referred to the Sleep Medicine Department for further evaluation/treatment of disrupted sleep patterns and central sleep apnea. 7) because hypovitaminosis D is well?known to worsen chronic myofascial pain, she was sent for a 25?vitamin D serum level to determine adequacy of treatment of her known hypovitaminosis D. Goal 25?vitamin D level is 60?80. 8) she was provided with written and verbal instructions to avoid all NSAIDs, including those that are lztr-[id number]-brlppkh, given her history of hemorrhagic gastritis. 9) she was advised to follow-up with her GI specialist for repeat colonoscopy, given her history of villous adenoma. 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 She was informed of the increased risk of malignancy and the need to have colonoscopy follow-up for this. She understands. 10) she was prescribed a compounded cream to help with myofascial pain complaints (see below for components of cream) 11) RTC 1 month. The above plan and management options were discussed at length with patient. Patient is in agreement with the above and verbalized understanding. Greater than 50% of this greater-than 45-minute office visit was spent counseling the patient and coordinating care. A portion of this document has been created with the use of voice-recognition technology. It may contain inaccuracies such as: misspellings or inaccurate syntax or word sense that escaped review. Raymond Cornejo M.D. December 21, 2017 Addendum: Compound cream of Bupivicaine 1%, Doxepin 2%, Nifedipine 1%, and Pentoxifyline 3% faxed to [facility] pharmacy at [phone]. Olya Pearson RN-ZEYAD December 22, 2017 12:14 PM CNOV Observed: 12/21/2017 Status: COMPLETED Source: [place] 12:30 PM [facility] RE[facility]IT[facility] EDGARDO DENSON ([id number]) 1965 F Date Time Provider Department 12/21/17 12:30 PM RAYMOND CORNEJO [facility] During your visit today, we recorded the following information about you: Temperature Pulse Respiration Blood pressure 98.4 degrees 95/minute 20/minute 114/79 Weight Height 53.5 kg 1.626 m Raymond Cornejo 12/21/2017 11:12 PM Addendum Referring Physician: Ryan Castano MD ([facility]) [facility] [address] [facility] [address] [facility] [address] Chief Complaint: Patient presents with: Pain: neck with radiation down bilateral arms, and low back with radiation down bilateral legs HISTORY OF PRESENT ILLNESS: Edgardo Denson presents to [facility] Pain Management Department for the evaluation of diffuse myofascial pain. When asked where her pain is located, she replies: everywhere. The pain started after a work-related injury in 1996. Physical Therapy/Home Exercise: Yes Do you feel safe at home? Yes Occupation: Disabled Any special cultural or sabianism practices that will affect treatment: No Baseline Urine Toxicology obtained: N/A Narcotic Agreement reviewed and signed: N/A Pain Medications: - Opioids: Percocet 5/325 one every 6 hours as needed . Last dose 12/21/2086. Prescribed by Dr. Castano - NSAIDs: none - Anti-Depressants: Effexor 300 mg daily - Anti-Convulsants: gabapentin 900 mg tid - Others: Vitamin D 50,000 units weekly Pain medications reviewed: Yes Pain Procedures: none PAST MEDICAL HISTORY Diagnosis Date - Asthma - Cellulitis and abscess of leg, except foot 03/01/2007 Orig Leg issue 1996 - Chronic pain syndrome 05/27/2008 Post-herpetic Neuralgia - Depression, reactive - DJD (degenerative joint disease), cervical - Esophageal reflux Hemorrhagic gastritis / hx GI - Headache - Muscle spasm BZD - Other convulsions 02/25/2009 - PE (pulmonary embolism) 07/2006 - PMH - PAST MEDICAL HISTORY OF 07/19/2005 h/o right leg DVT, PE, s/p IVC filter - PM - PAST MEDICAL HISTORY OF 2005 h/o Osteomyelitis infection - Sleep disturbance, unspecified sleep study 12/21 didn't show sleep apnea but some central apneas - Syncope Dr. Rae / [place] - Tobacco use disorder - Tubulovillous adenoma of colon 2008 Sigmoid PAST SURGICAL HISTORY Procedure Laterality Date - DELIVERY ONLY , low transverse - COLONOSCOP W/ OR W/O [facility] SPEC Colonoscopy - EGD W/O OR W/BRUSH/WASH EGD - LAPAROSCOPIC CHOLEYCYSTECTOMY Cholecystectomy, lap - PAST SURGICAL HISTORY OF 07/20 s/p IVC filter by Dr. Mcpherson - PAST SURGICAL HISTORY OF leg debridements for MRSA Social History: She denies any history of illicit substance abuse or heavy/maladaptive ETOH use. FAMILY HISTORY Problem Relation Age of Onset - Ischemic Heart Disease Mother - Stroke Mother - Diabetes Father - renal cell cancer [OTHER] Father Testical cancer, primary renal cancer - testicular cancer [OTHER] Father - Lipids Sister - Lipids Brother - Colon Cancer Paternal Grandmother - stomach cancer [OTHER] Paternal Grandmother - Breast Cancer No Family History ALLERGIES Allergen Reactions - Cellacefate Swelling - Depakote [Divalproe* GI Upset - Dilantin [Phenytoin* GI Upset - Fish Containing Pro* Unknown - Penicillin G GI Upset tolerates zosyn . sdm. 03/2007 TOLERATES KEFLEX 3-31-11 - Shrimp Unknown - Sulfa (Sulfonamide * GI Upset Gastritis - Topamax [Topiramate] Mental Status Change - Haldol [Haloperidol] Mental Status Change, Cough, GI Upset, Itching The above sections (except for History of Present Illness) were completed by: Olya Pearson RN and reveiwed by Dr. Cornejo. REVIEW OF SYSTEMS: CARDIAC: no cardiac arrhythmias, no IA, history of CVA, no heart failure HEENT: no history of glaucoma ONCOLOGY: no history of cancer, Positive history of tubulovillous adenoma : no urinary retention GASTROINTESTINAL: history of hemorrhagic gastritis GENITOURIANRY: no history of renal insufficiency, or hematuria PSYCH: moderate depression, anxiety and PTSD, no bipolar disorder or schizophrenia She denies any suicidal or homicidal ideation and a behavioral contract for safety was made with the patient. OBJECTIVE: BP 114/79 Pulse 95 Temp (Src) 98.4 (Oral) Resp 20 Ht 5' 4 (1.63m) Wt 118 lb (53.5kg) BMI 20.24 kg/(m2). PHYSICAL EXAMINATION: The entire physical examination was performed with Kathi Alfaro RN present as livestock auctioneer. General appearance: Well appearing, in no acute distress, alert. Psych: The patient is intermittently tearful throughout the interview and examination. She developed a significantly flattened affect with associated crying when informed that ongoing use of opioids is not optimal treatment for her pain complaints. Cor: Auscultation reveals: S1, S2, RRR at upper sternal border Pulm: CTA with good air movement anteriorlly, bilaterally GI: Abdomen is soft with normoactive bowel sounds. Mild nonspecific tenderness is noted. Musculoskeletal: Diffuse myofascial pain/tender points noted over multiple areas, including bilateral trapezius musculature, bilateral anterior second ribs, upper extremity, and lower extremity. Extremities: 1+ posterior tibial pulse on the right and 2+ posterior tibial pulse in the left. ASSESSMENT: 52 year old female with diffuse myofascial pain. She has a difficult time describing the onset of symptoms, however, she reports chronic pain since 1996. Physical examination is consistent with diffuse myofascial pain/tender points. She has a significant amount of comorbid pathology with depression, anxiety, and PTSD, which are likely contributing to the severity of her pain complaints, and interfering with adequate treatment of chronic pain. She has been maintained on moderately high doses of opioids until recently, when fentanyl patch was weaned (approximately one month ago). However, she continues on moderate doses of Percocet, taking this approximate 4 times a day, on average. In order to determine optimal treatment for this patient, it must be remembered that chronic opioid therapy is not appropriate treatment for chronic pain complaints. Chronic opioid therapy actually worsens chronic pain through multiple mechanisms. Some clinical studies demonstrating this are provided: (Jitendra Roberto et. al., Pain 157, 849-857 (2016).) (Willy, et. al., Journal of Pain 7(1), 43-8 (2006).) and (Renata Cooper et. al., Pain 156, 7273-6207 (2015).). A recent randomized trial also confirmed these findings: Carisa MONTANEZ, Myles A, Clemente S, et al. SPACE randomized clinical trial. DAISY. 2018;319(9):872-882. Further arguing against use of opioids in this patient is her concurrent use of benzodiazepines, which place her at significantly increased risk for adverse outcomes (a 15?fold increased risk of in patients when using benzodiazepines concurrently with opioids, compared to those to take neither medication as an outpatient, and a current Black?Box warning on opioids recommending against concurrent use with benzodiazepines). Additional factors arguing against ongoing use of opioids is the patient's history of central sleep apnea, which can be worsened by opioids, possibly resulting in very severe adverse effects, including . She is on anticoagulation for PE, making interventional therapy more complicated. She continues on Effexor ER 150 mg QD. She has reported allergies to topiramate, valproic acid, and carbamazepine. We are avoiding all NSAIDs, given her history of hemorrhagic gastritis. We are avoiding memantine, given her history of seizures. 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 Castano's last office note from 12/02/2017. She was advised to decrease Percocet to 3 times daily, as needed for 3 days, followed by 2 times daily as needed for 3 days, followed by once daily as needed for 3 days, followed by complete discontinuation of opioids. She was advised to take her remaining opioids to her local police station for disposal. 2) she has been referred to PT/OT, to include aqua therapy and kinesiotaping, in order to help with diffuse myofascial pain. She was advised to engage in her home exercise program on a daily basis. 3) as the patient weans opioids, we will initiate low?dose naltrexone at 2 mg QPM to help with diffuse myofascial pain. 4) she was provided with a short course of baclofen 5?10 mg Q 8 hours PRN to help with acute worsening of pain complaints. She was advised that this can cause drowsiness and she should avoid activities that require alertness while taking this medication. 5) she was advised to obtain the following dietary supplements ocak-tbr-jkqvwsa and take as noted below in order to help with diffuse myofascial pain: --coenzyme Q10 400 mg every day --magnesium oxide 400-800 mg every day --vitamin B complex, 2 tabs, 2 times every day --alpha lipoic acid 600 mg 2 times every day 6) because disorder sleep patterns are well?known to worsen chronic pain complaints, she has been referred to the Sleep Medicine Department for further evaluation/treatment of disrupted sleep patterns and central sleep apnea. 7) because hypovitaminosis D is well?known to worsen chronic myofascial pain, she was sent for a 25?vitamin D serum level to determine adequacy of treatment of her known hypovitaminosis D. Goal 25?vitamin D level is 60?80. 8) she was provided with written and verbal instructions to avoid all NSAIDs, including those that are dmiz-ojt-nzfitym, given her history of hemorrhagic gastritis. 9) she was advised to follow-up with her GI specialist for repeat colonoscopy, given her history of villous adenoma. 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 She was informed of the increased risk of malignancy and the need to have colonoscopy follow-up for this. She understands. 10) she was prescribed a compounded cream to help with myofascial pain complaints (see below for components of cream) 11) RTC 1 month. The above plan and management options were discussed at length with patient. Patient is in agreement with the above and verbalized understanding. Greater than 50% of this greater-than 45-minute office visit was spent counseling the patient and coordinating care. A portion of this document has been created with the use of voice-recognition technology. It may contain inaccuracies such as: misspellings or inaccurate syntax or word sense that escaped review. Raymond Cornejo M.D. December 21, 2017 Addendum: Compound cream of Bupivicaine 1%, Doxepin 2%, Nifedipine 1%, and Pentoxifyline 3% faxed to [facility] pharmacy at [phone]. Olya Pearson RN-BC December 22, 2017 12:14 PM Referring Provider: RYAN CASTANO [[id number]] Allergies As of Date: 12/21/2017 Noted Allergy Reaction CELLACEFATE 01/07/2006 7 - Swelling DEPAKOTE (DIVALPROEX SODIUM) 01/07/2006 8 - GI Upset DILANTIN (PHENYTOIN SODIUM EXTEND*06/03/2015 8 - GI Upset FISH CONTAINING PRODUCTS 05/13/2015 16 - Unknown PENICILLIN G 01/07/2006 8 - GI Upset Comments: tolerates zosyn . sdm. 03/2007 TOLERATES KEFLEX 3-31-11 SHRIMP 05/13/2015 16 - Unknown SULFA (SULFONAMIDE ANTIBIOTICS) 05/17/2007 8 - GI Upset Comments: Gastritis TOPAMAX (TOPIRAMATE) 05/21/2009 1 - Mental Status Change HALDOL (HALOPERIDOL) 02/03/2008 1 - Mental Status Change 3 - Cough 8 - GI Upset 9 - Itching Date Reviewed: 12/21/2017 Reviewed by: Raymond Cornejo - Fully Assessed Reason for Visit: Pain [78] Cmt: neck with radiation down bilateral arms, and low back with radiation down bilateral legs Primary Visit Diagnosis:Diffuse myofascial pain syndrome [M79.1] Other Visit Diagnoses:Pain disorder with psychological component [F45.41] Hypovitaminosis D [E55.9] Central sleep apnea [G47.31] Order(s):VITAMIN D 25 HYDROXY [SQVITD] Order #: [id number] FUTURE CONSULT TO SLEEP MEDICINE - ADULT [1997522] Order #: [id number]: 1 CONSULT TO JUDGE'S CLERK [[id number]] Order #: [id number]: 1 CONSULT TO PHYSICAL THERAPY [9061] Order #: [id number]: 1 COMPOUNDED PRESCRIPTIONLow Dose Naltrexone 2 mg capsule (do not use calcium filler) Take one capsule by mouth at 9:00 PM every nightDisp: 30 capsuleRfl: 5 baclofen (LIORESAL) 10 mg tabletTake 0.5-1 tablets by mouth once daily.Disp: 45 tabletRfl: 2 Prescriptions as of 12/21/2017 Sig: LACOSAMIDE 100 MG TABLET Take 1 tablet by mouth twice * CLONAZEPAM 0.5 MG TABLET Take 1 tablet by mouth three * OXYCODONE-ACETAMINOPHEN 5 MG-* 1 po q4h prn breakthrough anthony* GABAPENTIN 300 MG CAPSULE take 3 capsules by mouth thre* DABIGATRAN ETEXILATE 150 MG C* Take 1 capsule by mouth twice* VENLAFAXINE ER 150 MG CAPSULE* Take 2 capsules by mouth once* DICYCLOMINE 20 MG TABLET Take 1 tablet by mouth four t* PRADAXA 150 MG CAPSULE take 1 capsule by mouth twice* POTASSIUM CHLORIDE ER 20 MEQ * Take 1 tablet by mouth every * Patient taking differently: Take 1 tablet by mouth every * OMEPRAZOLE 20 MG CAPSULE,VENESSA* Take 1 capsule by mouth once * FLUTICASONE 500 MCG-SALMETERO* Inhale 1 Puff as instructed t* LOPERAMIDE 2 MG CAPSULE Take 1 capsule by mouth as ne* CETIRIZINE 10 MG CAPSULE Take by mouth once daily. ERGOCALCIFEROL (VITAMIN D2) 5* Take 1 capsule by mouth every* COMPOUNDED PRESCRIPTION Low Dose Naltrexone 2 mg cap* BACLOFEN 10 MG TABLET Take 0.5-1 tablets by mouth o* SPIRONOLACTONE 25 MG TABLET Take 1 tablet by mouth once d* Patient taking differently: Take 25 mg by mouth once maryuri* Medication notes this encounter CLONAZEPAM 0.5 MG TABLET >> Olya Pearson RN 12/21/2017 12:55 PM >> OLYA PEARSON RN TueDecember 21, 2017 12:55 PM Taking prn FLUTICASONE 500 MCG-SALMETEROL 50 MCG/DOSE BLISTR POWDR FOR INHALATION >> Olya Pearson RN 12/21/2017 12:56 PM >> OLYA PEARSON RN TueDecember 21, 2017 12:56 PM Taking prn COMPOUNDED PRESCRIPTION >> Olya Pearson RN 12/21/2017 4:15 PM >> OLYA PEARSON RN TueDecember 21, 2017 4:15 PM Called into [facility] pharmacy on 12/21/2017 at [phone]. Patient provided with the number to set up delivery of the medication. Problem List As Of Date 12/21/2017 Noted Resolved Cellulitis and abscess of leg, except foot [L03*INVALID FOR*02/25/2017 Methicillin susceptible Staphylococcus aureus i*INVALID FOR*02/25/2017 Pseudomonas infection in conditions classified *INVALID FOR*02/25/2017 Edema [R60.9] INVALID FOR*08/31/2017 Reflex sympathetic dystrophy of lower limb [G90*INVALID FOR* Psoas muscle abscess (HCC) [K68.12] INVALID FOR*02/25/2017 More... Candidiasis of unspecified site [B37.9] INVALID FOR*08/31/2017 More... Other streptococcus infection in conditions cla*INVALID FOR*02/25/2017 More... Bacteremia [R78.81] INVALID FOR*02/25/2017 Other lymphedema [I89.0] INVALID FOR*02/25/2017 Chronic pain syndrome [G89.4] INVALID FOR* Opioid type dependence, continuous (HCC) [F11.2*INVALID FOR* TOBACCO USE DISORDER [F17.200] Other convulsions [R56.9] INVALID FOR*02/25/2017 Priority: Moderate Sleep Hypovent Oth Dis [G47.36] INVALID FOR* Priority: Mild HYPOPOTASSEMIA [E87.6] INVALID FOR*02/28/2009 Priority: Moderate VENA CAVA THROMBOSIS [I82.220] INVALID FOR* Anemia, unspecified [D64.9] INVALID FOR*10/31/2017 Embolism and thrombosis (HCC) [I74.9] INVALID FOR*02/25/2017 Priority: B More... Other Pulmonary Embolism and Infarction [I26.99]INVALID FOR* Encounter for Long-Term (Current) Use of Antico*INVALID FOR* More... Left leg pain [M79.605] INVALID FOR*02/25/2017 Muscle spasm [M62.838] INVALID FOR* Leg pain [M79.606] INVALID FOR*02/25/2017 Depression, reactive [F32.9] 02/25/2017 More... Iron defic anemia NEC INVALID FOR*10/31/2017 Agitation [R45.1] INVALID FOR*02/25/2017 Other chronic pain [G89.29] INVALID FOR*12/03/2017 Priority: F More... Altered mental status [R41.82] INVALID FOR*05/19/2016 Chemical dependency (HCC) [F19.20] INVALID FOR* SUMMARY INVALID FOR*02/25/2017 Priority: A More... Left arm weakness [R29.898] INVALID FOR* Priority: B More... Chest pain [R07.9] INVALID FOR*10/31/2017 Priority: A More... Cellulitis [L03.90] INVALID FOR*02/25/2017 Priority: D More... Depression [F32.9] INVALID FOR* Priority: D More... Lethargy [R53.83] INVALID FOR* More... Seizure disorder (HCC) [G40.909] INVALID FOR*11/12/2017 More... Low BP [I95.9] INVALID FOR*08/31/2017 More... DJD (degenerative joint disease), cervical [M50* Anxiety state, unspecified [F41.1] 04/22/2014 Pain [R52] INVALID FOR*08/31/2017 Priority: B More... Fever [R50.9] INVALID FOR*02/25/2017 Priority: C More... Delirium [R41.0] INVALID FOR*02/25/2017 Priority: A More... Hematemesis [K92.0] INVALID FOR*02/25/2017 Priority: C More... Emphysema of lung (HCC) [J43.9] INVALID FOR* Smoker [F17.200] INVALID FOR*02/25/2017 Chronic deep vein thrombosis of left femoral ve*INVALID FOR* Vitamin D deficiency [E55.9] INVALID FOR* Psychosis [F29] INVALID FOR* GERD (gastroesophageal reflux disease) [K21.9] INVALID FOR* Asthma [J45.909] INVALID FOR* Orthostatic hypotension [I95.1] INVALID FOR*08/31/2017 More... Psychiatric disorder [F99] INVALID FOR* More... 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 Syncope [R55] INVALID FOR*08/31/2017 Intentional fentanyl overdose (HCC) [T40.4X2A] INVALID FOR*08/31/2017 Nausea [R11.0] INVALID FOR* Delusional disorder (HCC) [F22] INVALID FOR* More... Orthostasis [I95.1] INVALID FOR* Illicit drug use [F19.90] INVALID FOR* Phencyclidine (PCP) use disorder, moderate, dep*INVALID FOR* Psychogenic nonepileptic seizure [F44.5] INVALID FOR* Prescriptions ordered this encounter Disp Refills Start End COMPOUNDED PRESCRIPTION 30 c* 5 12/21/2017 Class: Print RX Sig: Low Dose Naltrexone 2 mg capsule (do not use calcium filler) Take one capsule by mouth at 9:00 PM every night BACLOFEN 10 MG TABLET 45 t* 2 12/21/2017 Route: ORAL Sig: Take 0.5-1 tablets by mouth once daily. Disposition: Return in about 1 month (around 01/21/2018). Follow-up and Disposition History Recorded Encounter Status:Closed by RAYMOND CORNEJO MD on 12/21/17 PROGRESS Observed: 12/03/2017 Status: COMPLETED Source: [place] 9:24 AM [facility] [place] REPOSITORY O ID: [id number] Author: Ryan Castano Service: (none) Author Type: Physician Type: Progress Notes Filed: 12/17/2017 2:04 PM Note Text: Edgardo Denson is a 52 year old female who presents to followup accompanied by her daughter Lindsey and grandson Mickey for medication refills, chronic pain, lymphadenopathy and syncopal episodes. At the last visit with me on 10-31 the AANDP was as follows: 1. Syncope, unspecified syncope type - ICD9: 780.2, ICD10: R55 (primary diagnosis) I'm not certain what caused this syncopal episode however she appears to be well and had preceding dizziness and recovered completely immediately upon awakening. I'm not going to pursue this further beyond her ECG which was normal. - ECG COMPLETE W INTERPRETATION ? 2. Other chronic pain - ICD9: 338.29, ICD10: G89.29 I'm going to continue tapering her at this point she will reduce to 12 ?g of fentanyl daily for the next week or so and then she will be out of fentanyl. At this point I am refilling her oxycodone, but we will be tapering this as well. I have provided her with a paper referral - FENTANYL 12 MCG/HR TRANSDERMAL PATCH - OXYCODONE-ACETAMINOPHEN 5 MG-325 MG TABLET - CONSULT TO PAIN MGT ANESTHESIA ? 3. Muscle spasm - ICD9: 728.85, ICD10: M62.838 refill - CLONAZEPAM 0.5 MG TABLET ? 4. Delusional Disorder/Substance Abuse disorder Her daughter reports that she is in favor of her mother's meds being tapered and denies that she is less functional; she is due with her second in December. She is going to move in to an appt with her kid(s) and mother. She is very concerned about how her mother behaves and its effect on her children. She reports that her mother does not drink or drug and that there are no drugs or alcohol in the home. She has been caring for her mother since the age of 12. She is interested in pursuing guardianship. I told her that I would not be able to assess her as the situation is psychiatrically complex. Will refer to Violet Joseph our SW. Contact was made by Violet to a person she believes was Lindsey who hung up. On Nov 12 she was briefly hospitalized with reported syncope x 2; utox was + for PCP, felt to have psychogenic nonepileptic seizure. She and her daughter deny that she uses any illicits. In ED Nov 23 with lymphadenopathy which she gets recurrently since childhood which prevented her from moving her neck. Better now. She complains bitterly about her pain; I'm not functional. She can't do her housework, can't order picker and carry things, play with Mickey. She is pending with Dr. Crystal Castro at [phone]. She believes that he will not Rx for her. 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 Muscle Spasm Chemical dependency ([facility]) Left Arm Weakness Depression Lethargy Djd (Degenerative Joint Disease), Cervical Emphysema of Lung (Hcc) Chronic Deep Vein Thrombosis of Left Femoral Vein ([facility]) Vitamin D Deficiency Psychosis Gerd (Gastroesophageal Reflux Disease) Asthma Psychiatric Disorder Tubulovillous Adenoma of Colon Nausea Delusional Disorder ([facility]) Orthostasis Illicit Drug Use Phencyclidine (Pcp) Use Disorder, Moderate, Dependence ([facility]) Psychogenic Nonepileptic Seizure Current Outpatient Prescriptions: [START ON 12/05/2017] clonazePAM (KLONOPIN) 0.5 mg tablet Take 1 tablet by mouth three times daily as needed for up to 30 days. [START ON 12/05/2017] oxyCODONE-acetaminophen (PERCOCET) 5- 325 mg tablet 1 po q4h prn breakthrough pain (MAXIMUM 5 pills/day)Earliest Fill Date: 12/05/17 gabapentin (NEURONTIN) 300 mg capsule take 3 capsules by mouth three times a day dabigatran etexilate (PRADAXA) 150 mg cap Take 1 capsule by mouth twice daily. venlafaxine ER (EFFEXOR XR) 150 mg 24 hr capsule Take 2 capsules by mouth once daily. dicyclomine (BENTYL) 20 mg tablet Take 1 tablet by mouth four times daily. PRADAXA 150 mg cap take 1 capsule by mouth twice a day potassium chloride 20 mEq TbER Take 1 tablet by mouth every Tuesday,Tuesday,Tuesday. (Patient taking differently: Take 1 tablet by mouth every Tuesday,Tuesday,Tuesday. Pt states that she takes it PRN ) omeprazole (PRILOSEC) 20 mg capsule Take 1 capsule by mouth once daily. fluticasone-salmeterol (ADVAIR DISKUS) 500-50 mcg/dose dsdv Inhale 1 Puff as instructed twice daily. RINSE AND GARGLE MOUTH WITH WATER AFTER EACH USE. spironolactone (ALDACTONE) 25 mg tablet Take 1 tablet by mouth once daily. (Patient taking differently: Take 25 mg by mouth once daily. Takes as needed ) loperamide (IMODIUM) 2 mg cap(s) Take 1 capsule by mouth as needed for Diarrhea. Cetirizine (ZYRTEC) 10 mg cap Take by mouth once daily. ergocalciferol, vitamin D2, (DRISDOL) 50,000 unit capsule Take 1 capsule by mouth every Tuesday. Indications: VITAMIN D DEFICIENCY No current facility-administered medications for this visit. Physical Examination: BP 108/78 Pulse 101 Temp 36.7 ?C (98.1 ?F) (Oral) Wt 57.6 kg (127 lb) BMI 21.8 kg/m2 General appearance: Thin, alert, in no acute distress. Weight is up. Lymph: No cervical, scalene, axillary or inguinal lymphadenopathy Abdomen: Abdomen soft, non-tender and non-distended. Bowel sounds normal. No masses or organomegaly Mental Status: Is largely calm but raises voice when I advise that we will continue tapering narcs; however with calm approach she settles quickly. ASSESSMENT/PLAN: 1. Other chronic pain - ICD9: 338.29, ICD10: G89.29 (primary diagnosis) I am continuing to taper her; will now reduce to 5 oxycodone per 24 hours for one month and review. - OXYCODONE-ACETAMINOPHEN 5 MG-325 MG TABLET - TOX SCREEN ROUT UR 2. Muscle spasm - ICD9: 728.85, ICD10: M62.838 Refill will reduce benzos after narcs down/stopped. - CLONAZEPAM 0.5 MG TABLET 3. Opioid type dependence, continuous (HCC) - ICD9: 304.01, ICD10: F11.20 check - TOX SCREEN ROUT UR 4. Phencyclidine (PCP) use disorder, moderate, dependence (HCC) - ICD9: 304.60, ICD10: F16.20 There can be false + tests with antipsychotics, ?phenergan. Have stopped prescribing this and off medlist. - TOX SCREEN ROUT UR Return in about 1 month (around 01/01/2018) for follow Christine. Ryan Castano MD TOXICOLOGY SCREEN,UR Collected: 12/02/2017 Status: F Source: [place] 11:00 PM [facility] [place] REPOSITORY TYPE CODE TESTS RESULT OUT OF REFERENCE UNITS RANGE LAB UPCP2 Negative Negative Phencyclidin e, Urine Result Comment: Cutoff threshold at 25 ng/mL. LAB UBENZ2 Negative Benzodiazepines, Ur Negative Result Comment: Cutoff threshold at 200 ng/mL. LAB UCOC2 Negative Cocaine, Negative Urine Result Comment: Cutoff threshold at 300 ng/mL. LAB UAMPH2 Negative Amphetamines, Urine Negative Result Comment: Cutoff threshold at 1000 ng/mL. LAB UTHC2 Negative Cannabinoids, Urine Negative Result Comment: Cutoff threshold at 50 ng/mL. LAB UOPI2 Negative Opiates, Negative Urine Result Comment: Cutoff threshold at 300 ng/mL. LAB UBARB2 Negative Barbiturates, Urine Negative Result Comment: Cutoff threshold at 200 ng/mL. LAB UETOH <11 mg/dL <11 Ethanol, Urine LAB UOXYC Negative Oxycodone, Negative Urine Result Comment: Cutoff threshold at 100 ng/mL. Comment: Immunoassay screen only. Cross reactivity with other substances can occur with immunoassay screening. Detection of any drug(s) in this urine toxicology panel is presumptive only. These tests are for med ical purposes only and should not be used for compliance monitoring, legal, or forensic use. In clinical settings, confirmatory testing is at the practitioner's discretion [1]. If clinically indicated, confirmation by high specificity, quantitative methodology may be requested on the same speci men through Client Services ([phone]) if contacted within 48 hours of initial testing. [1]Substance Abuse and Mental Health Services Administration (2012). Clinical Drug Testing in Primary Care Technical Assistance Publication Series 32. Department of Health and Human Services, [place], p.10. These tests were developed and their performance characteristics determined by [facility]'s [facility] [place] ( PLIA). They have not been cleared or a pproved by the FDA. [facility] is regulated under CLIA as qualified to perform high complexity testing. These tests are used for clinical purposes. They should not be regarded as investigational or for research. Performed By: #### [email or web address] #### [facility] [address], [place] [address] QUANT PAIN PANEL, Collected: 12/02/2017 Status: F Source: [facility] 11:00 PM [facility] REPOSITORY TYPE CODE TESTS RESULT OUT OF REFERENCE UNITS RANGE LAB UQCANN <16 ng/mL <16 Cannabinoid, Urine Result Comment: Tetrahydrocannabinol carboxylic acid (THCA) is a metabolite of gntat-6-mzgkltgavsbrkfwqubaa which is the main active component of marijuana. LAB UQBNZL <24 ng/mL Benzoylecognine, Ur <24 Result Comment: Benzoylecognine is a metabolite of cocaine. LAB UQACMR <5 ng/mL 6-Acetylmorphine, Ur <5 Result Comment: 6-DANA (6-monoacetylmorphine, also known as 6-acetylmorphine) is a unique metabolite of heroin. Presence of 6-DANA indicates use of heroin. 6-DANA is further metabolized to morphine and absence of 6-DANA does not rule out the use of heroin. LAB UQAMPH <5 ng/mL Amphetamine, Urine <5 LAB UQMAMP <8 ng/mL Methamphetamine, Ur <8 LAB UQBUPR <20 ng/mL Buprenorphine, Ur <20 LAB UQNBUP <20 ng/mL Norbuprenorphine, Ur <20 Result Comment: Norbuprenorphine is the primary active metabolite of buprenorphine. LAB UQMTHD <16 ng/mL Methadone, Urine <16 LAB UQEDDP <6 ng/mL EDDP, Urine <6 Result Comment: EDDP is a metabolite of methadone. LAB UQTRAM <25 ng/mL Tramadol, Urine <25 LAB UQDTRM <20 ng/mL Desmethyltramadol <20 ,Ur Result Comment: Desmethyltramadol is a metabolite of tramadol. LAB UQFNTL <6 ng/mL Fentanyl, Urine <6 LAB UQNFTL <6 ng/mL Norfentanyl, Urine <6 Result Comment: Norfentanyl is a metabolite of fentanyl. LAB UQCODE <11 ng/mL Codeine, Urine <11 LAB UQMORP <10 ng/mL Morphine, Urine <10 Result Comment: Morphine is a metabolite of codeine and heroin. LAB UQDCDN <5 ng/mL Dihydrocodeine, Ur <5 LAB UQHCOD <8 ng/mL Hydrocodone, Urine <8 Result Comment: Hydrocodone is a metabolite of dihydrocodeine. LAB UQOXYC <5 ng/mL Oxycodone, Urine <5 LAB UQHMOR <5 ng/mL Hydromorphone, Ur <5 Result Comment: Hydromorphone is a metabolite of hydrocodone. LAB UQOXYM <5 ng/mL Oxymorphone, Urine <5 Result Comment: Oxymorphone is a metabolite of oxycodone. LAB UQCREA >19 mg/dL Creatinine, Urine 105.5 Result Comment: Disregard reference range. REFERENCE RANGE IS 42.2 TO 237.9 MG/DL LAB UQPH 4-10 pH, Urine 5.8 Result Comment: Disregard reference range. REFERENCE RANGE IS 4.5 TO 8.0 LAB UQSPGR 1.005-1.020 Specific [place],Ur 1.015 Result Comment: Disregard reference range. REFERENCE RANGE IS 1.002 TO 1.030 LAB UQOXID Negative Abnormal Alert Oxidants, Urine <38 Result Comment: Disregard reference range. REFERENCE RANGE IS LESS THAN 200 MG/L LAB SVNI01 <51 mg/L NITRITES,URINE <50 LAB SVCH01 <50 mg/L CHROMATE,URINE <10 LAB SVSQ01 QUALITY,URINE Specimen quality results within acceptable limits. LAB UQNOTE Note This test is for Medical use only. Result Comment: This test was developed and its performance characteristics determined by [facility]'s [facility] [place] ([facility]). It has not been cleared or approved by the FDA. -[facility] is regulated under CLIA as qualified to perform high-complexity testing. This test is used for clinical purposes. It should not be regarded as investigational or for research. Performed By: #### UQNTPP #### [facility] [address] [place], [place] [address] CNOV Observed: 12/02/2017 Status: COMPLETED Source: [place] 11:20 AM [facility] REPOSITORY [facility] EDGARDO DENSON ([id number]) 1965 F Date Time Provider Department 12/02/17 11:20 AM R[facility]ST[facility] During your visit today, we recorded the following information about you: Temperature Pulse Blood pressure Weight 98.1 degrees 101/minute 108/78 57.6 kg Ryan Castano 12/17/2017 2:04 PM Addendum Edgardo Denson is a 52 year old female who presents to followup accompanied by her daughter Lindsey and grandson Mickey for medication refills, chronic pain, lymphadenopathy and syncopal episodes. At the last visit with me on 10-31 the AANDP was as follows: 1. Syncope, unspecified syncope type - ICD9: 780.2, ICD10: R55 (primary diagnosis) I'm not certain what caused this syncopal episode however she appears to be well and had preceding dizziness and recovered completely immediately upon awakening. I'm not going to pursue this further beyond her ECG which was normal. - ECG COMPLETE W INTERPRETATION ? 2. Other chronic pain - ICD9: 338.29, ICD10: G89.29 I'm going to continue tapering her at this point she will reduce to 12 ?g of fentanyl daily for the next week or so and then she will be out of fentanyl. At this point I am refilling her oxycodone, but we will be tapering this as well. I have provided her with a paper referral - FENTANYL 12 MCG/HR TRANSDERMAL PATCH - OXYCODONE-ACETAMINOPHEN 5 MG-325 MG TABLET - CONSULT TO PAIN MGT ANESTHESIA ? 3. Muscle spasm - ICD9: 728.85, ICD10: M62.838 refill - CLONAZEPAM 0.5 MG TABLET ? 4. Delusional Disorder/Substance Abuse disorder Her daughter reports that she is in favor of her mother's meds being tapered and denies that she is less functional; she is due with her second in December. She is going to move in to an appt with her kid(s) and mother. She is very concerned about how her mother behaves and its effect on her children. She reports that her mother does not drink or drug and that there are no drugs or alcohol in the home. She has been caring for her mother since the age of 12. She is interested in pursuing guardianship. I told her that I would not be able to assess her as the situation is psychiatrically complex. Will refer to Violet Joseph our SW. Contact was made by Violet to a person she believes was Lindsey who hung up. On Nov 12 she was briefly hospitalized with reported syncope x 2; utox was + for PCP, felt to have psychogenic nonepileptic seizure. She and her daughter deny that she uses any illicits. In ED Nov 23 with lymphadenopathy which she gets recurrently since childhood which prevented her from moving her neck. Better now. She complains bitterly about her pain; I'm not functional. She can't do her housework, can't order picker and carry things, play with Mickey. She is pending with Dr. Crystal [facility] at [phone]. She believes that he will not Rx for her. 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 Other Pulmonary Embolism and Infarction Longterm (Current) Use of Anticoagulants Muscle Spasm Chemical dependency (HCC) Left Arm Weakness Depression Lethargy Djd (Degenerative Joint Disease), Cervical Emphysema of Lung (Hcc) Chronic Deep Vein Thrombosis of Left Femoral Vein (Hcc) Vitamin D Deficiency Psychosis Gerd (Gastroesophageal Reflux Disease) Asthma Psychiatric Disorder Tubulovillous Adenoma of Colon Nausea Delusional Disorder (Hcc) Orthostasis Illicit Drug Use Phencyclidine (Pcp) Use Disorder, Moderate, Dependence (Hcc) Psychogenic Nonepileptic Seizure Current Outpatient Prescriptions: [START ON 12/05/2017] clonazePAM (KLONOPIN) 0.5 mg tablet Take 1 tablet by mouth three times daily as needed for up to 30 days. [START ON 12/05/2017] oxyCODONE-acetaminophen (PERCOCET) 5- 325 mg tablet 1 po q4h prn breakthrough pain (MAXIMUM 5 pills/day)Earliest Fill Date: 12/05/17 gabapentin (NEURONTIN) 300 mg capsule take 3 capsules by mouth three times a day dabigatran etexilate (PRADAXA) 150 mg cap Take 1 capsule by mouth twice daily. venlafaxine ER (EFFEXOR XR) 150 mg 24 hr capsule Take 2 capsules by mouth once daily. dicyclomine (BENTYL) 20 mg tablet Take 1 tablet by mouth four times daily. PRADAXA 150 mg cap take 1 capsule by mouth twice a day potassium chloride 20 mEq TbER Take 1 tablet by mouth every Tuesday,Tuesday,Joe. (Patient taking differently: Take 1 tablet by mouth every Tuesday,Tuesday,Tuesday. Pt states that she takes it PRN ) omeprazole (PRILOSEC) 20 mg capsule Take 1 capsule by mouth once daily. fluticasone-salmeterol (ADVAIR DISKUS) 500-50 mcg/dose dsdv Inhale 1 Puff as instructed twice daily. RINSE AND GARGLE MOUTH WITH WATER AFTER EACH USE. spironolactone (ALDACTONE) 25 mg tablet Take 1 tablet by mouth once daily. (Patient taking differently: Take 25 mg by mouth once daily. Takes as needed ) loperamide (IMODIUM) 2 mg cap(s) Take 1 capsule by mouth as needed for Diarrhea. Cetirizine (ZYRTEC) 10 mg cap Take by mouth once daily. ergocalciferol, vitamin D2, (DRISDOL) 50,000 unit capsule Take 1 capsule by mouth every Tuesday. Indications: VITAMIN D DEFICIENCY No current facility-administered medications for this visit. Physical Examination: BP 108/78 Pulse 101 Temp 36.7 ?C (98.1 ?F) (Oral) Wt 57.6 kg (127 lb) BMI 21.8 kg/m2 General appearance: Thin, alert, in no acute distress. Weight is up. Lymph: No cervical, scalene, axillary or inguinal lymphadenopathy Abdomen: Abdomen soft, non-tender and non-distended. Bowel sounds normal. No masses or organomegaly Mental Status: Is largely calm but raises voice when I advise that we will continue tapering narcs; however with calm approach she settles quickly. ASSESSMENT/PLAN: 1. Other chronic pain - ICD9: 338.29, ICD10: G89.29 (primary diagnosis) I am continuing to taper her; will now reduce to 5 oxycodone per 24 hours for one month and review. - OXYCODONE-ACETAMINOPHEN 5 MG-325 MG TABLET - TOX SCREEN ROUT UR 2. Muscle spasm - ICD9: 728.85, ICD10: M62.838 Refill will reduce benzos after narcs down/stopped. - CLONAZEPAM 0.5 MG TABLET 3. Opioid type dependence, continuous (HCC) - ICD9: 304.01, ICD10: F11.20 check - TOX SCREEN ROUT UR 4. Phencyclidine (PCP) use disorder, moderate, dependence (HCC) - ICD9: 304.60, ICD10: F16.20 There can be false + tests with antipsychotics, ?phenergan. Have stopped prescribing this and off medlist. - TOX SCREEN ROUT UR Return in about 1 month (around 01/01/2018) for follow Christine. Ryan Castano MD Referring Provider: SELF [200] Allergies As of Date: 12/02/2017 Noted Allergy Reaction CELLACEFATE 01/07/2006 7 - Swelling DEPAKOTE (DIVALPROEX SODIUM) 01/07/2006 8 - GI Upset DILANTIN (PHENYTOIN SODIUM EXTEND*06/03/2015 8 - GI Upset FISH CONTAINING PRODUCTS 05/13/2015 16 - Unknown PENICILLIN G 01/07/2006 8 - GI Upset Comments: tolerates zosyn . sdm. 03/2007 TOLERATES KEFLEX 3-31-11 SHRIMP 05/13/2015 16 - Unknown SULFA (SULFONAMIDE ANTIBIOTICS) 05/17/2007 8 - GI Upset Comments: Gastritis TOPAMAX (TOPIRAMATE) 05/21/2009 1 - Mental Status Change HALDOL (HALOPERIDOL) 02/03/2008 1 - Mental Status Change 3 - Cough 8 - GI Upset 9 - Itching Date Reviewed: 12/02/2017 Reviewed by: Dolores Rothman - Fully Assessed Reason for Visit: Recurrent Erosion Follow Up [3402] Primary Visit Diagnosis:Other chronic pain [G89.29] Other Visit Diagnoses:Muscle spasm [M62.838] Opioid type dependence, continuous (HCC) [F11.20] Phencyclidine (PCP) use disorder, moderate, dependence (HCC) [F16.20] Order(s):clonazePAM (KLONOPIN) 0.5 mg tabletTake 1 tablet by mouth three times daily as needed for up to 30 days.Disp: 90 tabletRfl: 0 oxyCODONE-acetaminophen (PERCOCET) 5-325 mg tablet1 po q4h prn breakthrough pain (MAXIMUM 5 pills/day) Earliest Fill Date: 12/05/17Disp: 150 tabletRfl: 0 TOX SCREEN ROUT UR [SQUTOX2] Order #: [id number]. #:[id number] Prescriptions as of 12/02/2017 Sig: CLONAZEPAM 0.5 MG TABLET Take 1 tablet by mouth three * OXYCODONE-ACETAMINOPHEN 5 MG-* 1 po q4h prn breakthrough anthony* GABAPENTIN 300 MG CAPSULE take 3 capsules by mouth thre* DABIGATRAN ETEXILATE 150 MG C* Take 1 capsule by mouth twice* VENLAFAXINE ER 150 MG CAPSULE* Take 2 capsules by mouth once* DICYCLOMINE 20 MG TABLET Take 1 tablet by mouth four t* PRADAXA 150 MG CAPSULE take 1 capsule by mouth twice* POTASSIUM CHLORIDE ER 20 MEQ * Take 1 tablet by mouth every * Patient taking differently: Take 1 tablet by mouth every * OMEPRAZOLE 20 MG CAPSULE,VENESSA* Take 1 capsule by mouth once * FLUTICASONE 500 MCG-SALMETERO* Inhale 1 Puff as instructed t* SPIRONOLACTONE 25 MG TABLET Take 1 tablet by mouth once d* Patient taking differently: Take 25 mg by mouth once maryuri* LOPERAMIDE 2 MG CAPSULE Take 1 capsule by mouth as ne* CETIRIZINE 10 MG CAPSULE Take by mouth once daily. ERGOCALCIFEROL (VITAMIN D2) 5* Take 1 capsule by mouth every* Problem List As Of Date 12/02/2017 Noted Resolved Cellulitis and abscess of leg, except foot [L03*INVALID FOR*02/25/2017 Methicillin susceptible Staphylococcus aureus i*INVALID FOR*02/25/2017 Pseudomonas infection in conditions classified *INVALID FOR*02/25/2017 Edema [R60.9] INVALID FOR*08/31/2017 Reflex sympathetic dystrophy of lower limb [G90*INVALID FOR* Psoas muscle abscess (HCC) [K68.12] INVALID FOR*02/25/2017 More... Candidiasis of unspecified site [B37.9] INVALID FOR*08/31/2017 More... Other streptococcus infection in conditions cla*INVALID FOR*02/25/2017 More... Bacteremia [R78.81] INVALID FOR*02/25/2017 Other lymphedema [I89.0] INVALID FOR*02/25/2017 Chronic pain syndrome [G89.4] INVALID FOR* Opioid type dependence, continuous (HCC) [F11.2*INVALID FOR* TOBACCO USE DISORDER [F17.200] Other convulsions [R56.9] INVALID FOR*02/25/2017 Priority: Moderate Sleep Hypovent Oth Dis [G47.36] INVALID FOR* Priority: Mild HYPOPOTASSEMIA [E87.6] INVALID FOR*02/28/2009 Priority: Moderate VENA CAVA THROMBOSIS [I82.220] INVALID FOR* Anemia, unspecified [D64.9] INVALID FOR*10/31/2017 Embolism and thrombosis (HCC) [I74.9] INVALID FOR*02/25/2017 Priority: B More... Other Pulmonary Embolism and Infarction [I26.99]INVALID FOR* Encounter for Long-Term (Current) Use of Antico*INVALID FOR* More... Left leg pain [M79.605] INVALID FOR*02/25/2017 Muscle spasm [M62.838] INVALID FOR* Leg pain [M79.606] INVALID FOR*02/25/2017 Depression, reactive [F32.9] 02/25/2017 More... Iron defic anemia NEC INVALID FOR*10/31/2017 Agitation [R45.1] INVALID FOR*02/25/2017 Other chronic pain [G89.29] INVALID FOR* Priority: F More... Altered mental status [R41.82] INVALID FOR*05/19/2016 Chemical dependency (HCC) [F19.20] INVALID FOR* SUMMARY INVALID FOR*02/25/2017 Priority: A More... Left arm weakness [R29.898] INVALID FOR* Priority: B More... Chest pain [R07.9] INVALID FOR*10/31/2017 Priority: A More... Cellulitis [L03.90] INVALID FOR*02/25/2017 Priority: D More... Depression [F32.9] INVALID FOR* Priority: D More... Lethargy [R53.83] INVALID FOR* More... Seizure disorder (HCC) [G40.909] INVALID FOR*11/12/2017 More... Low BP [I95.9] INVALID FOR*08/31/2017 More... DJD (degenerative joint disease), cervical [M50* Anxiety state, unspecified [F41.1] 04/22/2014 Pain [R52] INVALID FOR*08/31/2017 Priority: B More... Fever [R50.9] INVALID FOR*02/25/2017 Priority: C More... Delirium [R41.0] INVALID FOR*02/25/2017 Priority: A More... Hematemesis [K92.0] INVALID FOR*02/25/2017 Priority: C More... Emphysema of lung (HCC) [J43.9] INVALID FOR* Smoker [F17.200] INVALID FOR*02/25/2017 Chronic deep vein thrombosis of left femoral ve*INVALID FOR* Vitamin D deficiency [E55.9] INVALID FOR* Psychosis [F29] INVALID FOR* GERD (gastroesophageal reflux disease) [K21.9] INVALID FOR* Asthma [J45.909] INVALID FOR* Orthostatic hypotension [I95.1] INVALID FOR*08/31/2017 More... Psychiatric disorder [F99] INVALID FOR* More... 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 Syncope [R55] INVALID FOR*08/31/2017 Intentional fentanyl overdose (HCC) [T40.4X2A] INVALID FOR*08/31/2017 Nausea [R11.0] INVALID FOR* Delusional disorder (HCC) [F22] INVALID FOR* More... Orthostasis [I95.1] INVALID FOR* Illicit drug use [F19.90] INVALID FOR* Phencyclidine (PCP) use disorder, moderate, dep*INVALID FOR* Psychogenic nonepileptic seizure [F44.5] INVALID FOR* Prescriptions ordered this encounter Disp Refills Start End CLONAZEPAM 0.5 MG TABLET 90 t* 0 12/05/2017 01/04/2018 Class: Print RX Route: ORAL Sig: Take 1 tablet by mouth three times daily as needed for up to 30 days. OXYCODONE-ACETAMINOPHEN 5 MG-325 MG * 150 * 0 12/05/2017 12/29/2017 Class: Print RX Si po q4h prn breakthrough pain (MAXIMUM 5 pills/day) Earliest Fill Date: 12/05/17 Medications Discontinued During This Encounter clonazePAM (KLONOPIN) 0.5 mg tablet 90 t* 0 11/05/2017 12/02/2017 Class: Print RX Route: ORAL Sig: Take 1 tablet by mouth three times daily as needed for up to 30 days. Disc: Reason for discontinue is not on file. oxyCODONE-acetaminophen (PERCOCET) 5* 180 * 0 11/05/2017 12/02/2017 Class: Print RX Si po q4h prn breakthrough pain (MAXIMUM 6 pills/day) Earliest Fill Date: 11/05/17 Disc: Reason for discontinue is not on file. promethazine (PHENERGAN) 25 mg tablet 10 t* 0 11/03/2017 12/03/2017 Route: ORAL Sig: Take 1 tablet by mouth every 8 hours as needed. Disc: Reason for discontinue is not on file. potassium chloride ER (K-DUR, KLOR-C* 30 t* 0 06/01/2017 12/03/2017 Route: ORAL Sig: Take 1 tablet by mouth once daily. Disc: Reason for discontinue is not on file. fentaNYL (DURAGESIC) 12 mcg/hr pt72 3 Pa* 0 11/02/2017 12/03/2017 Class: Print RX Sig: Use 1 patch every 3 days with 25 for total of 37 for 2 weeks then stop. Earliest Fill Date: 11/02/17 Disc: Reason for discontinue is not on file. azithromycin (ZITHROMAX Z-JEREMY) 250 m* 1 Pa* 0 08/18/2017 12/03/2017 Sig: Use as directed. Disc: Reason for discontinue is not on file. Disposition: Return in about 1 month (around 01/01/2018) for follow Christine. Follow-up and Disposition History Recorded Encounter Status:Closed by RYAN CASTANO MD on 12/03/17 CBC AND DIFFERENTIAL Collected: 11/23/2017 Status: F Source: [facility] 11:52 PM [facility]IN[facility] OTHER CAMPUS REPOSITORY TYPE CODE TESTS RESULT OUT OF REFERENCE UNITS RANGE LAB WBC 3.70-11.00 k/uL WBC High 12.41 LAB RBC 3.90-5.20 m/uL RBC 4.59 LAB HGB 11.5-15.5 g/dL Hemoglobin 14.3 LAB HCT 36.0-46.0 % Hematocrit 42.2 LAB MCV 80.0-100.0 fL MCV 91.9 LAB MCH 26.0-34.0 pG MCH 31.2 LAB MCHC 30.5-36.0 g/dL MCHC 33.9 LAB RDWCV 11.5-15.0 % RDW-CV 12.9 LAB PLTCT 150-400 k/uL Platelet Count 334 LAB MPV 9.0-12.7 fL MPV 9.3 LAB ANEUT % Neut% 55.6 LAB AANEUT 1.45-7.50 k/uL Abs Neut 6.91 LAB ALYMP % Lymph% 36.7 LAB AALYMP 1.00-4.00 k/uL Abs High Lymph 4.55 LAB AMONO % [place]% 5.1 LAB AAMONO <0.87 k/uL Abs [place] 0.63 LAB AEOS % Eosin% 2.1 LAB AAEOS <0.46 k/uL Abs Eosin 0.26 LAB ABASO % Baso% 0.5 LAB AABASO <0.11 k/uL Abs Baso 0.06 LAB DTYP DTYPE Auto Diff TROPONIN T Collected: 11/23/2017 Status: F Source: [facility] 11:52 PM [facility]IN[facility] OTHER CAMPUS REPOSITORY TYPE CODE TESTS RESULT OUT OF REFERENCE UNITS RANGE LAB TROPT 0.000-0.029 ng/mL Troponin T <0.010 COMP METABOLIC PANEL Collected: 11/23/2017 Status: F Source: [place] 11:52 PM [facility]IN[facility] OTHER CAMPUS REPOSITORY TYPE CODE TESTS RESULT OUT OF REFERENCE UNITS RANGE LAB TP 6.3-8.0 g/dL Protein, Total 7.9 LAB ALB 3.9-4.9 g/dL Albumin 4.2 LAB CA 8.6-10.0 mg/dL Calcium, Total 9.1 LAB TBIL 0.2-1.3 mg/dL Bilirubin, Low Total <0.2 LAB ALKP 36-108 U/L Alkaline Phosphatase 96 LAB AST 13-35 U/L AST 22 LAB GLU 74-99 mg/dL Glucose 92 LAB BUN 7-21 mg/dL BUN 17 LAB CRET 0.58-0.96 mg/dL Creatinine 0.78 LAB NA 136-144 mmol/L Sodium 141 LAB K 3.7-5.1 mmol/L Potassium Low 3.6 LAB CL 97-105 mmol/L Chloride 104 LAB CO2 22-33 mmol/L CO2 23 LAB AGAP 9-18 mmol/L Anion Gap 14 LAB ALT 7-38 U/L ALT 22 LAB GFRAA eGFR- >60 Amer. LAB GFRNAA . eGFR-All Other Races >60 Result Comment: eGFR (Estimated GFR) Units of measure: mL/min/1.73 meters squared eGFR is derived from the reexpressed MDRD Study equation using the following parameters: serum creatinine, age, gender and race. The creatinine assay has been calibrated to be traceable to IDMS. An eGFR <60 mL/min/1.73m2 for >3 months is consistent with chronic kidney disease. Refer to KDOQI guidelines for clinical interpretation. In patients with unstable renal function, e.g. those with acute kidney injury, the eGFR may not accurately reflect actual GFR. CRIT CARE PROFILE-TRICIA Collected: 11/23/2017 Status: F Source: [facility], [facility], AVN USE ONLY 11:45 PM CLINIC OTHER CAMPUS REPOSITORY TYPE CODE TESTS RESULT OUT OF REFERENCE UNITS RANGE LAB TEMP C Temperature, Body 37.0 LAB DRWSIT Drawsite Venous LAB ATTEMP Attempts 1 LAB VPH 7.32-7.42 pH 7.39 LAB VPC2 42-55 mm Hg pCO2 42 LAB VPO2 35-45 mm Hg pO2 High 48 LAB VHC3 24-28 mmol/L Bicarbonate 25 LAB VBE mmol/L Base Excess 0 Result Comment: -2 TO 2 LAB VO2S 60-85 % Oxygen Saturation 84 LAB HGBB 11.5-15.5 g/dL 14.5 Hemoglobin,Total,AC L LAB NAB 132-148 mmol/L Sodium,Whole Bld 142 LAB KWB 3.5-5.0 mmol/L Potassium, Whole 3.6 Bld LAB CLWB 98-110 mmol/L Chloride, Whole 110 Bld LAB IC 1.08-1.30 mmol/L Calcium, Ion, WB 1.21 LAB GLB 60-105 mg/dL Glucose,Whole Bld 90 LAB LACT 0.5-2.2 mmol/L Lactate 1.0 LAB DEVICE Device NONE LAB VOAD O2 Administered 21 LAB ACALLN Andrei Test Not Applicable XR CHEST 1V FRONTAL Observed: 11/23/2017 Status: F Source: [facility] 10:49 PM CLINIC OTHER CAMPUS REPOSITORY * * *Final Report* * * DATE OF EXAM: Nov 23 2017 10:49PM HCX [id number] - XR CHEST 1V FRONTAL PORT / PROCEDURE REASON: Fever * * * * Physician Interpretation * * * * RESULT: CHEST ONE VIEW Indications: Fever Comparison: 11/11/2017 RESULTS: 1. Lines, Tubes, and Devices: N/A 2. Lungs and Pleura: The right heart border is obscured, and mild patchy opacities are seen in the right infrahilar region. The rest of the lungs are again hyperlucent, compatible with COPD. 3. Cardiomediastinal silhouette: Size within normal limits. 4. Other: - IMPRESSION: Findings suggestive of complete atelectasis/collapse of the right middle lobe; superimposed infiltrate not excluded. No pneumothorax. Transcribed Using Voice Recognition Transcribe Date/Time: Nov 23 2017 10:47P Dictated by: CHANTAL ROBBINS MD This examination was interpreted and the report reviewed and electronically signed by: CHANTAL ROBBINS MD on Nov 23 2017 10:49PM EST [id number] CT BRAIN WO IVCON Observed: 11/23/2017 Status: F Source: [facility] 10:47 PM CLINIC OTHER CAMPUS REPOSITORY * * *Final Report* * * DATE OF EXAM: Nov 23 2017 10:47PM [facility] 0504 - CT BRAIN WO IVCON / PROCEDURE REASON: Seizure (HCC)--Fall * * * * Physician Interpretation * * * * RESULT: EXAMINATION: CT BRAIN WO IVCON HISTORY: Seizure (HCC)--Fall TECHNIQUE: Serial axial images without IV contrast were obtained from the vertex to the foramen magnum. MQ: [id number] CT Dose-Length Product (DLP): 770 mGy*cm CT Dose Reduction Employed: No dose reduction techniques were required COMPARISON: 11/11/2017 RESULT: Post-operative change: None. Acute change: No evidence of an acute infarct or other acute parenchymal process. Hemorrhage: No evidence of acute intracranial hemorrhage. Mass Lesion / Mass Effect: There is no evidence of an intracranial mass or extraaxial fluid collection. No significant mass effect. Chronic change: None apparent. Parenchyma: There is no significant volume loss. The brain parenchyma is otherwise within normal limits for age. Ventricles: The ventricles are within normal limits of size and configuration for age. Paranasal sinuses and skull base: The visualized paranasal sinuses are grossly clear. The skull base and imaged soft tissues are unremarkable. IMPRESSION: No evidence of an acute intracranial process or significant change since 11/11/2017 Transcribed Using Voice Recognition Transcribe Date/Time: Nov 23 2017 10:49P Dictated by: JOSE TAYLOR MD This examination was interpreted and the report reviewed and electronically signed by: JOSE TAYLOR MD on Nov 23 2017 10:50PM EST [id number] ED PROV NOTE Observed: 11/23/2017 Status: COMPLETED Source: [facility] 10:22 PM CLINIC OTHER CAMPUS REPOSITORY HNO ID: [id number] Author: Pricilla Cornell MD Service: Emergency Medicine Author Type: Physician Type: ED Provider Notes Filed: 11/24/2017 2:17 AM Note Text: ED Provider Note Patient Name: Edgardo Denson SERVICE DATE: 11/23/17 History Patient presents with: Seizures HPI Comments: 52 year old female presents to ED by squad with chief complaint of having diffuse lymph gland swelling which has been an ongoing problem since she was 6 months old. Pt also has not slept well for 3 days. She has diffuse pain and is on a fentanyl patch and percocet for break through pain. She was taken off all medications by her current physician. Pt states she has also been having breakthrough seizures as well. Pt was an [employer] she has been disabled due to an injury that caused a MRSA infection 20 years ago. PAST MEDICAL HISTORY Diagnosis Date - Asthma - Cellulitis and abscess of leg, except foot 03/01/2007 Orig Leg issue 1996 - Chronic pain syndrome 05/27/2008 Post-herpetic Neuralgia - Depression, reactive - DJD (degenerative joint disease), cervical - Esophageal reflux Hemorrhagic gastritis / hx GI - Headache - Muscle spasm BZD - Other convulsions 02/25/2009 - PE (pulmonary embolism) 07/2006 - PMH - PAST MEDICAL HISTORY OF 07/19/2005 h/o right leg DVT, PE, s/p IVC filter - [facility] - PAST MEDICAL HISTORY OF 2005 h/o Osteomyelitis infection - Sleep disturbance, unspecified sleep study 12/21 didn't show sleep apnea but some central apneas - Syncope Dr. 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 PAST SURGICAL HISTORY Procedure Laterality Date - DELIVERY ONLY , low transverse - COLONOSCOP W/ OR W/O [facility] SPEC Colonoscopy - EGD W/O OR W/BRUSH/WASH EGD - LAPAROSCOPIC CHOLEYCYSTECTOMY Cholecystectomy, lap - PAST SURGICAL HISTORY OF 07/20 s/p IVC filter by Dr. Mcpherson - PAST SURGICAL HISTORY OF leg debridements for MRSA FAMILY HISTORY Problem Relation Age of Onset - Ischemic Heart Disease Mother - Stroke Mother - Diabetes Father - renal cell cancer [OTHER] Father Testical cancer, primary renal cancer - testicular cancer [OTHER] Father - Lipids Sister - Lipids Brother - Colon Cancer Paternal Grandmother - stomach cancer [OTHER] Paternal Grandmother - Breast Cancer No Family History Social History Social History Main Topics - Smoking status: Current Every Day Smoker Packs/day: 0.50 Years: 12.00 Types: Cigarettes - Smokeless tobacco: Never Used Comment: Currently smokes two cigarettes a day - Alcohol use No - Drug use: No - Sexual activity: Not Currently ALLERGIES Allergen Reactions - Cellacefate Swelling - Depakote [Divalproe* GI Upset - Dilantin [Phenytoin* GI Upset - Fish Containing Pro* Unknown - Penicillin G GI Upset tolerates zosyn . sdm. 03/2007 TOLERATES KEFLEX 11-12-10 - Shrimp Unknown - Sulfa (Sulfonamide * GI Upset Gastritis - Topamax [Topiramate] Mental Status Change - Haldol [Haloperidol] Mental Status Change, Cough, GI Upset, Itching Review of Systems Constitutional: Positive for fever. Negative for chills and fatigue. HENT: Negative for congestion and nosebleeds. Eyes: Negative for discharge and redness. Respiratory: Negative for chest tightness and shortness of breath. Cardiovascular: Negative for chest pain. Gastrointestinal: Negative for abdominal pain, diarrhea, nausea and vomiting. Genitourinary: Negative for difficulty urinating. Musculoskeletal: Negative for myalgias. Skin: Negative for color change and rash. Neurological: Negative for speech difficulty and weakness. Hematological: Positive for adenopathy. Psychiatric/Behavioral: Negative for agitation. The patient is not nervous/anxious. All other systems reviewed and are negative. Physical Exam BP 128/65 Pulse 91 Temp (Src) 99.1 (Oral) Resp 16 Ht 5' 4 (1.63m) Wt 119 lb (54.0kg) SpO2 96% BMI 20.42 kg/(m2). Physical Exam Constitutional: She is oriented to person, place, and time. She appears well-developed and well-nourished. HENT: Head: Normocephalic. Right Ear: External ear normal. Left Ear: External ear normal. Nose: Nose normal. Mouth/Throat: Oropharynx is clear and moist. No oropharyngeal exudate. Eyes: Conjunctivae and EOM are normal. Pupils are equal, round, and reactive to light. Right eye exhibits no discharge. Left eye exhibits no discharge. No scleral icterus. Neck: Normal range of motion. Neck supple. No tracheal deviation present. Cardiovascular: Normal rate and normal heart sounds. No murmur heard. Pulmonary/Chest: Effort normal and breath sounds normal. No respiratory distress. She has no wheezes. Abdominal: Soft. Bowel sounds are normal. She exhibits no distension. There is no tenderness. Musculoskeletal: She exhibits no edema. Lymphadenopathy: She has cervical adenopathy ( Mild cervical lymphadenopathy as well as in her inguinal regions, no epitrochlear lymphadenopathy). Neurological: She is alert and oriented to person, place, and time. Skin: Skin is warm and dry. Psychiatric: She has a normal mood and affect. Nursing note and vitals reviewed. Diagnostic Testing Labs Reviewed CBC + AUTO DIFF (AK,AV,EU,FV,HL,ANGELES,MM,SP) - Abnormal; Notable for the following: Result Value WBC 12.41 (*) Abs Lymph 4.55 (*) All other components within normal limits COMPREHENSIVE METABOLIC PANEL (AK,AV,EU,FV,HL,ANGELES,MM,SP) - Abnormal; Notable for the following: Bilirubin, Total <0.2 (*) Potassium 3.6 (*) All other components within normal limits CRITICAL CARE PROFILE-VENOUS (AV,FV,HL) - Abnormal; Notable for the following: pO2, Venous 48 (*) All other components within normal limits TROPONIN T (AV,EU,FV,HL,ANGELES,MM,SP) URINALYSIS WITH MICROSCOPIC (AK,AV,EU,FV,HL,ANGELES,MM,SP) CT BRAIN WO IVCON Final Result IMPRESSION: No evidence of an acute intracranial process or significant change since 11/11/2017 Transcribed Using Voice Recognition Transcribe Date/Time: Nov 23 2017 10:49P Dictated by: JOSE TAYLOR MD This examination was interpreted and the report reviewed and electronically signed by: JOSE TAYLOR MD on Nov 23 2017 10:50PM EST XR CHEST 1V FRONTAL PORT Final Result IMPRESSION: Findings suggestive of complete atelectasis/collapse of the right middle lobe; superimposed infiltrate not excluded. No pneumothorax. Transcribed Using Voice Recognition Transcribe Date/Time: Nov 23 2017 10:47P Dictated by: CHANTAL ROBBINS MD This examination was interpreted and the report reviewed and electronically signed by: CHANTAL ROBBINS MD on Nov 23 2017 10:49PM EST EKG Sinus rhythm 86 bpm Normal axis No acute ST-T wave changes Procedures Medical Decision Making / ED Course ED Course Encounter Diagnosis ICD-10-CM 1. Lymphadenopathy R59.1 2. Seizure disorder (HCC) G40.909 3. Insomnia, unspecified type G47.00 Plan SIGNATURE: Eulalia Vo DO TRANSFER OF CARE: The patients care was turned over to Dr. Cornell at 11:30pm. The care and plan was discussed with the oncoming provider. Items pending that need to be checked : Labs, Radiology - CT CXR and Re-evaluate. Tentative impression of patient: History of seizures with breakthrough seizure, lymphadenopathy, insomnia - patient does not want to stay and would like to go home with her 37 week daughter The Patient was DISCHARGED: Counseled patient regarding lab results AND radiology results AND suspected diagnosis AND need for follow- up. Discharged home with verbal and written instructions. They were instructed to return as needed for persistent or worsening symptoms or any new concerns. Condition at time of disposition: stable Eulaliajosie Jaeger DO Gilda 11/23/17 [id number] Care for this patient was assumed from the previous provider. I have reviewed the case and plan for the patient. Any pertinent finding or changes in the patient's condition are documented below. Patient counseled about negative results. She is feeling better. All questions answered. Discharged home in stable condition. MD Pricilla Zheng MD 11/24/17 0217 ED NOTE Observed: 11/23/2017 Status: COMPLETED Source: [facility] 9:55 PM CLINIC OTHER CAMPUS REPOSITORY HNO ID: [id number] Author: Rosalina OliverosRn) ABIODUN Helton Service: (none) Author Type: Registered Nurse Type: ED Notes Filed: 11/23/2017 9:56 PM Note Text: Per patient, her daughter told her she was going unresponsive and having grand mal seizures. ED NOTE Observed: 11/23/2017 Status: COMPLETED Source: [facility] 9:36 PM CLINIC OTHER CAMPUS REPOSITORY HNO ID: [id number] Author: Ingrid OliverosRn) Rick RN Service: (none) Author Type: Registered Nurse Type: ED Notes Filed: 11/23/2017 9:36 PM Note Text: Bed: ED-13 Expected date: Expected time: Means of arrival: Comments: gifty ED NOTE Observed: 11/23/2017 Status: COMPLETED Source: [place] 9:32 PM [facility] OTHER CAMPUS REPOSITORY HNO ID: [id number] Author: Ingrid (Rn) Rick RN Service: (none) Author Type: Registered Nurse Type: ED Notes Filed: 11/23/2017 9:33 PM Note Text: Pt comes in co that her lymph nodes are swollen and she has not been sleeping well. States she has been having seizures per her daughter. PROGRESS Observed: 11/15/2017 Status: COMPLETED Source: [place] 12:28 PM [facility] REPOSITORY HNO ID: [id number] Author: Lorraine (Rn) Billy, ABIODUN Service: (none) Author Type: Registered Nurse Type: Progress Notes Filed: 11/15/2017 12:43 PM Note Text: TRANSITION CARE MANAGEMENT (TCM) INITIAL CONTACT Provider Action/FYI: SPECIALIST FOLLOW-UP: Pain management, PCP, psychiatry Initial contact with patient post discharge, spoke to patient. Patient identified by name and . SUMMARY: -Pt discharged from on 11/12. -Follow up appointment on - Advised to call back following Neuro / pain management follow up -Medication review done - reports taking as prescribed. Reports no changes -Admitted for: Chronic pain CONCERNS: Reports continued all over body( bone) pain- unable to sleep. States she has a low tolerance for pain and was weaned off pain meds too fast. Denies syncope or dizziness. Reports continued diarrhea but drinking plenty of fluids. Reports she feels hydrated now after IVFs in ER. Plans to keep neuro appt tomorrow with Dr. Rae and pain management appt on 11/18 Encourage to go to ER with persistent dizziness, or syncope. Difficult to hear patient on her phone line d/t static. States she doesn't have another number for me to call her on. Patient continues to keep talking despite telling her multiple times that I am only able to make out every 2-3 words d/t static Phone eventually disconnected. Called her back - No answer. LM with reminders to keep appts and go to ER with worsening of SX and phone number for TCM line. Encouraged to call me back on on another phone if possible. NEW MEDICATIONS: none MEDS HELD/DISCONTINUED: none BRIEF HOSPITAL COURSE: Hospital Problems: # Pain all over body (acute on chronic pain) # pain med seeking behaviour # Syncope? Etiology: unclear at this point. May be seizure/ psych related/ opioid related She is very focused on getting pain medications, and does not want to talk about anything else CT brain- no acute findings U tox positive for Phencyclidine, Benzo and Oxycodone PLAN - Neurology consult, ??CT neck. Patient refusing scans and asking for pain meds - Psychiatry consult - Pain Management consult - Security has been called twice so far on November 12, 2017 by nursing team. Patient appears to be is very difficult to kylee ? - discussed plan extensively with patient's Daughter. She is planning to apply for Guardianship, she agrees that patient hs had a long history of poly substance abuse and does not ant to go to rehab ? - patient left the hospital against medical advice at around 4PM on November 12, 2017 Psychiatry consult did no want to pink slip the patient per nurse, not still pending. I talked to pain management ? # nausea/vomiging/ diarrhea # dehydration Withdrawal., no sepsis. Diarrhea is on/off and history is unclear PLAN - iv fluids if she allows. Fecal studies pending. C.diff - no sepsis. Will hold off on antibiotics. ?? # possible UTI Dirty UA. H/o recurrent UTIs/ h/o syncope PLAN - urine culture, Nitrofurantoin ?? Chronic Problems: # Opioid addition and chronic pain. H/o opioid overdose and withdrawal # recurrent syncope. Medication/ psychiatric condition related? # Depression # DVT/PE s/p IVC filter and on Dabigatran # COPD ?? VTE Prophylaxis:?Patient is already anti-coagulated.?? Disposition:?TBD Plan of care discussed with:?Patient, and RN ? ? Transitions of Care Critical Issues: SPECIALIST FOLLOW-UP: Pain management, PCP, psychiatry ? CONSULTING TEAMS DURING HOSPITALIZATION: neurology, Psychiatry, pain management ? PATIENT CONDITION AT DISCHARGE: Fair ? DISCHARGE DISPOSITION: AMA INFORMATION PROVIDED TO PATIENT: PROGRESS Observed: 11/15/2017 Status: COMPLETED Source: [place] 10:49 AM [facility] REPOSITORY HNO ID: [id number] Author: Lorraine OliverosRn) ABIODUN Cervantes Service: (none) Author Type: Registered Nurse Type: Progress Notes Filed: 11/15/2017 12:43 PM Note Text: 1st attempt to call patient for TCM. No answer. LM to call TCM line ([phone]) Lorraine Cervantes RN, [facility] [phone] [facility] [[id number]] CNPTOUTREACH Observed: 11/15/2017 Status: COMPLETED Source: [place] 12:00 AM [facility] REPOSITORY Patient Outreach ([facility]) EDGARDO DENSON ([id number]) 1965 F Date Time Provider Department 11/15/17 LORRAINE CERVANTES (RN) [facility] During your visit today, we recorded the following information about you: Lorraine Cervantes, RN, RN 11/15/2017 12:43 PM Signed 1st attempt to call patient for TCM. No answer. LM to call TCM line ([phone]) Lorraine Cervantes RN, [facility] [phone] [facility] [[id number]] Lorraine Cervantes RN, RN 11/15/2017 12:43 PM Signed TRANSITION CARE MANAGEMENT (TCM) INITIAL CONTACT Provider Action/FYI: SPECIALIST FOLLOW-UP: Pain management, PCP, psychiatry Initial contact with patient post discharge, spoke to patient. Patient identified by name and . SUMMARY: -Pt discharged from on 11/12. -Follow up appointment on - Advised to call back following Neuro / pain management follow up -Medication review done - reports taking as prescribed. Reports no changes -Admitted for: Chronic pain CONCERNS: Reports continued all over body( bone) pain- unable to sleep. States she has a low tolerance for pain and was weaned off pain meds too fast. Denies syncope or dizziness. Reports continued diarrhea but drinking plenty of fluids. Reports she feels hydrated now after IVFs in ER. Plans to keep neuro appt tomorrow with Dr. Rea and pain management appt on 11/18 Encourage to go to ER with persistent dizziness, or syncope. Difficult to hear patient on her phone line d/t static. States she doesn't have another number for me to call her on. Patient continues to keep talking despite telling her multiple times that I am only able to make out every 2-3 words d/t static Phone eventually disconnected. Called her back - No answer. LM with reminders to keep appts and go to ER with worsening of SX and phone number for TCM line. Encouraged to call me back on on another phone if possible. NEW MEDICATIONS: none MEDS HELD/DISCONTINUED: none BRIEF HOSPITAL COURSE: Hospital Problems: # Pain all over body (acute on chronic pain) # pain med seeking behaviour # Syncope? Etiology: unclear at this point. May be seizure/ psych related/ opioid related She is very focused on getting pain medications, and does not want to talk about anything else CT brain- no acute findings U tox positive for Phencyclidine, Benzo and Oxycodone PLAN - Neurology consult, ??CT neck. Patient refusing scans and asking for pain meds - Psychiatry consult - Pain Management consult - Security has been called twice so far on November 12, 2017 by nursing team. Patient appears to be is very difficult to kylee ? - discussed plan extensively with patient's Daughter. She is planning to apply for Guardianship, she agrees that patient hs had a long history of poly substance abuse and does not ant to go to rehab ? - patient left the hospital against medical advice at around 4PM on November 12, 2017 Psychiatry consult did no want to pink slip the patient per nurse, not still pending. I talked to pain management ? # nausea/vomiging/ diarrhea # dehydration Withdrawal., no sepsis. Diarrhea is on/off and history is unclear PLAN - iv fluids if she allows. Fecal studies pending. C.diff - no sepsis. Will hold off on antibiotics. ?? # possible UTI Dirty UA. H/o recurrent UTIs/ h/o syncope PLAN - urine culture, Nitrofurantoin ?? Chronic Problems: # Opioid addition and chronic pain. H/o opioid overdose and withdrawal # recurrent syncope. Medication/ psychiatric condition related? # Depression # DVT/PE s/p IVC filter and on Dabigatran # COPD ?? VTE Prophylaxis:?Patient is already anti-coagulated.?? Disposition:?TBD Plan of care discussed with:?Patient, and RN ? ? Transitions of Care Critical Issues: SPECIALIST FOLLOW-UP: Pain management, PCP, psychiatry ? CONSULTING TEAMS DURING HOSPITALIZATION: neurology, Psychiatry, pain management ? PATIENT CONDITION AT DISCHARGE: Fair ? DISCHARGE DISPOSITION: AMA INFORMATION PROVIDED TO PATIENT: Allergies As of Date: 11/15/2017 Noted Allergy Reaction CELLACEFATE 01/07/2006 7 - Swelling DEPAKOTE (DIVALPROEX SODIUM) 01/07/2006 8 - GI Upset DILANTIN (PHENYTOIN SODIUM EXTEND*06/03/2015 8 - GI Upset FISH CONTAINING PRODUCTS 05/13/2015 16 - Unknown PENICILLIN G 01/07/2006 8 - GI Upset Comments: tolerates zosyn . sdm. 03/2007 TOLERATES KEFLEX -31-11 SHRIMP 05/13/2015 16 - Unknown SULFA (SULFONAMIDE ANTIBIOTICS) 05/17/2007 8 - GI Upset Comments: Gastritis TOPAMAX (TOPIRAMATE) 05/21/2009 1 - Mental Status Change HALDOL (HALOPERIDOL) 02/03/2008 1 - Mental Status Change 3 - Cough 8 - GI Upset 9 - Itching Date Reviewed: 11/12/2017 Reviewed by: Jerica (Rn) ABIODUN Ponce - Fully Assessed Reason for Visit: Transition Of Care [4074] Cmt: hospital discharge( AMA) 11/12 chronic pain/ diarrhea Reason For Visit History Recorded Prescriptions as of 11/15/2017 Sig: DABIGATRAN ETEXILATE 150 MG C* Take 1 capsule by mouth twice* VENLAFAXINE ER 150 MG CAPSULE* Take 2 capsules by mouth once* PROMETHAZINE 25 MG TABLET Take 1 tablet by mouth every * FENTANYL 12 MCG/HR TRANSDERMA* Use 1 patch every 3 days with* CLONAZEPAM 0.5 MG TABLET Take 1 tablet by mouth three * OXYCODONE-ACETAMINOPHEN 5 MG-* 1 po q4h prn breakthrough anthony* DICYCLOMINE 20 MG TABLET Take 1 tablet by mouth four t* PRADAXA 150 MG CAPSULE take 1 capsule by mouth twice* GABAPENTIN 300 MG CAPSULE take 3 capsules by mouth thre* POTASSIUM CHLORIDE ER 20 MEQ * Take 1 tablet by mouth every * Patient taking differently: Take 1 tablet by mouth every * AZITHROMYCIN 250 MG TABLET Use as directed. OMEPRAZOLE 20 MG CAPSULE,VENESSA* Take 1 capsule by mouth once * FLUTICASONE 500 MCG-SALMETERO* Inhale 1 Puff as instructed t* POTASSIUM CHLORIDE ER 20 MEQ * Take 1 tablet by mouth once d* SPIRONOLACTONE 25 MG TABLET Take 1 tablet by mouth once d* Patient taking differently: Take 25 mg by mouth once maryuri* LOPERAMIDE 2 MG CAPSULE Take 1 capsule by mouth as ne* CETIRIZINE 10 MG CAPSULE Take by mouth once daily. ERGOCALCIFEROL (VITAMIN D2) 5* Take 1 capsule by mouth every* Problem List As Of Date 11/15/2017 Noted Resolved Cellulitis and abscess of leg, except foot [L03*INVALID FOR*02/25/2017 Methicillin susceptible Staphylococcus aureus i*INVALID FOR*02/25/2017 Pseudomonas infection in conditions classified *INVALID FOR*02/25/2017 Edema [R60.9] INVALID FOR*08/31/2017 Reflex sympathetic dystrophy of lower limb [G90*INVALID FOR* Psoas muscle abscess (HCC) [K68.12] INVALID FOR*02/25/2017 More... Candidiasis of unspecified site [B37.9] INVALID FOR*08/31/2017 More... Other streptococcus infection in conditions cla*INVALID FOR*02/25/2017 More... Bacteremia [R78.81] INVALID FOR*02/25/2017 Other lymphedema [I89.0] INVALID FOR*02/25/2017 Chronic pain syndrome [G89.4] INVALID FOR* Opioid type dependence, continuous (HCC) [F11.2*INVALID FOR* TOBACCO USE DISORDER [F17.200] Other convulsions [R56.9] INVALID FOR*02/25/2017 Priority: Moderate Sleep Hypovent Oth Dis [G47.36] INVALID FOR* Priority: Mild HYPOPOTASSEMIA [E87.6] INVALID FOR*02/28/2009 Priority: Moderate VENA CAVA THROMBOSIS [I82.220] INVALID FOR* Anemia, unspecified [D64.9] INVALID FOR*10/31/2017 Embolism and thrombosis (HCC) [I74.9] INVALID FOR*02/25/2017 Priority: B More... Other Pulmonary Embolism and Infarction [I26.99]INVALID FOR* Encounter for Long-Term (Current) Use of Antico*INVALID FOR* More... Left leg pain [M79.605] INVALID FOR*02/25/2017 Muscle spasm [M62.838] INVALID FOR* Leg pain [M79.606] INVALID FOR*02/25/2017 Depression, reactive [F32.9] 02/25/2017 More... Iron defic anemia NEC INVALID FOR*10/31/2017 Agitation [R45.1] INVALID FOR*02/25/2017 Other chronic pain [G89.29] INVALID FOR* Priority: F More... Altered mental status [R41.82] INVALID FOR*05/19/2016 Chemical dependency (HCC) [F19.20] INVALID FOR* SUMMARY INVALID FOR*02/25/2017 Priority: A More... Left arm weakness [R29.898] INVALID FOR* Priority: B More... Chest pain [R07.9] INVALID FOR*10/31/2017 Priority: A More... Cellulitis [L03.90] INVALID FOR*02/25/2017 Priority: D More... Depression [F32.9] INVALID FOR* Priority: D More... Lethargy [R53.83] INVALID FOR* More... Seizure disorder (HCC) [G40.909] INVALID FOR*11/12/2017 More... Low BP [I95.9] INVALID FOR*08/31/2017 More... DJD (degenerative joint disease), cervical [M50* Anxiety state, unspecified [F41.1] 04/22/2014 Pain [R52] INVALID FOR*08/31/2017 Priority: B More... Fever [R50.9] INVALID FOR*02/25/2017 Priority: C More... Delirium [R41.0] INVALID FOR*02/25/2017 Priority: A More... Hematemesis [K92.0] INVALID FOR*02/25/2017 Priority: C More... Emphysema of lung (HCC) [J43.9] INVALID FOR* Smoker [F17.200] INVALID FOR*02/25/2017 Chronic deep vein thrombosis of left femoral ve*INVALID FOR* Vitamin D deficiency [E55.9] INVALID FOR* Psychosis [F29] INVALID FOR* GERD (gastroesophageal reflux disease) [K21.9] INVALID FOR* Asthma [J45.909] INVALID FOR* Orthostatic hypotension [I95.1] INVALID FOR*08/31/2017 More... Psychiatric disorder [F99] INVALID FOR* More... 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 Seizure ([facility]) [R56.9] INVALID FOR*02/25/2017 Tubulovillous adenoma of colon [D12.6] More... Syncope [R55] INVALID FOR*08/31/2017 Intentional fentanyl overdose ([facility]) [T40.4X2A] INVALID FOR*08/31/2017 Nausea [R11.0] INVALID FOR* Delusional disorder (HCC) [F22] INVALID FOR* More... Orthostasis [I95.1] INVALID FOR* Illicit drug use [F19.90] INVALID FOR* Phencyclidine (PCP) use disorder, moderate, dep*INVALID FOR* Psychogenic nonepileptic seizure [F44.5] INVALID FOR* Encounter Status:Closed by LORRAINE CERVANTES on 11/15/17 CONSULT Observed: 11/12/2017 Status: COMPLETED Source: [place] 3:55 PM CLINIC OTHER CAMPUS REPOSITORY [facility] ID: [id number] Author: Carlos Stafford Service: Psychiatry Author Type: Physician Type: Consults Filed: 11/12/2017 4:12 PM Note Text: PSYCHIATRY CONSULTATION NOTE November 12, 2017; 12:50 PM REASON FOR CONSULTATION: AGITATION HPI: Patient is 52 year old female with history of chronic pain for many years who has taken chronic opioid therapy for this in high doses. She has previously been maintained on fentanyl 50 mcg/hr patch, Percocet for breakthrough pain, and clonazepam. OARRS: November 12, 2017 The fentanyl has been weaned over last months to last prescription of 12 mcg/hr. She is also on gabapentin 900 mg po tid. Patient noted to have episodes of syncope and collapse. Now, opioids are being weaned off even more. In spite of history of high dose opioids--pain not controlled. Chronic, non-malignant pain. She has a history of benzo use with opioids as well as noted above. Patient is angry and hostile, threatening, and displaying prominent opioid seeking behavior. She links her appropriate medical care to receipt of opioids. Refuses to go for scans unless she gets IV Dilaudid. I told her that I would give her no opioids as these are most likely the reason for her falls and syncope/collapse. She was demeaning and hostile towards me following this. Interview terminated due to her behavior. Prominent withdrawal noted. Agree with pain management--no reason for chronic opioids at this point in time. She has a history of central sleep apnea--? Opioid related? PAST MEDICAL HISTORY Diagnosis Date - Asthma - Cellulitis and abscess of leg, except foot 03/01/2007 Orig Leg issue 1996 - Chronic pain syndrome 05/27/2008 Post-herpetic Neuralgia - Depression, reactive - DJD (degenerative joint disease), cervical - Esophageal reflux Hemorrhagic gastritis / hx GI - Headache - Muscle spasm BZD - Other convulsions 02/25/2009 - PE (pulmonary embolism) 07/2006 - PMH - PAST MEDICAL HISTORY OF 07/19/2005 h/o right leg DVT, PE, s/p IVC filter - PMH - PAST MEDICAL HISTORY OF 2005 h/o Osteomyelitis infection - Sleep disturbance, unspecified sleep study 12/21 didn't show sleep apnea but some central apneas - Syncope Dr. 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 PAST SURGICAL HISTORY Procedure Laterality Date - DELIVERY ONLY , low transverse - COLONOSCOP W/ OR W/O [facility] SPEC Colonoscopy - EGD W/O OR W/BRUSH/WASH EGD - LAPAROSCOPIC CHOLEYCYSTECTOMY Cholecystectomy, lap - PAST SURGICAL HISTORY OF 07/20 s/p IVC filter by Dr. Mcpherson - PAST SURGICAL HISTORY OF leg debridements for MRSA Current hospital medications: dabigatran etexilate 150 mg cap(s) (PRADAXA) 150 mg ORAL BID venlafaxine ER 300 mg cap(s) (EFFEXOR XR) 300 mg ORAL DAILY oxyCODONE-acetaminophen 5-325 mg 1 tablet (PERCOCET) 1 tablet ORAL q 4 H PRN loperamide 2 mg cap(s) (IMODIUM) 2 mg ORAL PRN promethazine 25 mg tab(s) (PHENERGAN) 25 mg ORAL q 8 H PRN clonazePAM 0.5 mg tab(s) (KlonoPIN) 0.5 mg ORAL TID PRN dicyclomine 20 mg tab(s) (BENTYL) 20 mg ORAL QID 0.9% NaCl 3-5 mL 3-5 mL INTRAVENOUS q 12 H NaCl 0.9% iv infusion 100 mL/hr INTRAVENOUS CONTINUOUS loratadine 10 mg tab(s) (CLARITIN) 10 mg ORAL DAILY fluticasone-vilanterol 200-25 mcg/dose 1 Inhalation (BREO ELLIPTA) 1 Inhalation INHALATION DAILY pantoprazole DR 20 mg tab(s) (PROTONIX) 20 mg ORAL DAILY (6 AM) gabapentin 900 mg cap(s) (NEURONTIN) 900 mg ORAL q 8 H nicotine 7 mg/24 hr 1 Patch (NICODERM) 1 Patch TRANSDERMAL DAILY [START ON 11/13/2017] nicotine -- REMOVE patch OTHER DAILY nicotine - verify patch OTHER q 8 H OLANZapine 10 mg injection (ZyPREXA) 10 mg INTRAMUSCULAR q 8 H PRN OLANZapine 20 mg tab(s) (ZyPREXA) 20 mg ORAL ONCE nitrofurantoin monohydrate and macrocrystal 100 mg cap(s) (MACROBID) 100 mg ORAL BID ALLERGIES Allergen Reactions - Cellacefate Swelling - Depakote [Divalproe* GI Upset - Dilantin [Phenytoin* GI Upset - Fish Containing Pro* Unknown - Penicillin G GI Upset tolerates zosyn . sdm. 03/2007 TOLERATES KEFLEX 11-12-10 - Shrimp Unknown - Sulfa (Sulfonamide * GI Upset Gastritis - Topamax [Topiramate] Mental Status Change - Haldol [Haloperidol] Mental Status Change, Cough, GI Upset, Itching Social History Marital status: Spouse name: Years of education: Number of children: 1 Occupational History Occupation Employer Comment [employer]* Social History Main Topics Smoking status: Current Every Day Smoker Packs/day: 0.50 Years: 12.00 Types: Cigarettes Smokeless status: Never Used Comment: Currently smokes two cigarettes a day Alcohol use: No Drug use: No Sexual activity: Not Currently Social History Narrative Lives w/ dtr 11/12/17 0015 11/12/17 0053 11/12/17 0500 11/12/17 1139 BP: 131/71 138/86 145/90 Pulse: (!) 93 92 101 Resp: 18 18 20 18 Temp: 36.7 ?C (98 ?F) 36.3 ?C (97.3 ?F) TempSrc: Oral Oral SpO2: 98% 96% 97% Weight: 53.5 kg (118 lb) Height: 163.8 cm (5' 4.5) Mental Status Exam: Patient was alert and oriented x 3. Speech had a hostile and demeaning tone, loud. Patient's behavior was noted to be intrusive, angry. Multiple nursing members at bedside due to behavior. Eye contact fair. Thought processes were perseverative towards desiring more opioids. She voices no SI/HI/AVH/delusions. Her behavior appeared manipulative and designed towards obtaining opioids. Cognition intact to language command. I/J poor with respect to roles of opioids in her medical care. Assessment: Chronic pain syndrome; opioid use disorder (moderate to severe) Plan: ? Agree with pain management--opioids should not play a prominent role in the treatment of this patient's pain; ? Recommend weaning all opioids as tolerated; ? Recommend weaning clonazepam as tolerated: Reduce to 0.25 mg po TID PRN; ? Patient needs to follow-up as outpatient with chronic pain for pain control options; ? Recommend social work consult to give materials for substance abuse programs; ? She may be a Suboxone candidate given opioid dependence as an outpatient--would not start inpatient. ? Olanzapine 10-20 mg at HS or 10 mg IM q8h PRN agitation unresponsive to redirection and non-pharmacological measures. ? Appreciate consult. Carlos Stafford MD November 12, 2017 4:11 PM CNDS Observed: 11/12/2017 Status: COMPLETED Source: [place] 3:21 PM CLINIC OTHER CAMPUS REPOSITORY [facility] ID: [id number] Author: Gilberto Mei Service: Hospital Medicine Author Type: Physician Type: Discharge Summaries Filed: 11/12/2017 4:39 PM Note Text: DISCHARGE SUMMARY Against Medical Advice PATIENT NAME: Edgardo Denson ADMISSION DATE: 11/12/2017 DISCHARGE DATE: 11/12/2017 ATTENDING PHYSICIAN: Liza Woodall REASON FOR HOSPITALIZATION: pain al over, fall DIAGNOSIS: Principal Problem: Psychogenic nonepileptic seizure Active Problems: Depression Chronic pain syndrome Opioid type dependence, continuous (HCC) Chemical dependency (HCC) Chronic deep vein thrombosis of left femoral vein (HCC) Vitamin D deficiency GERD (gastroesophageal reflux disease) Asthma Orthostasis Illicit drug use Phencyclidine (PCP) use disorder, moderate, dependence (HCC) Resolved Problems: Seizure disorder (HCC) OPERATIONS DURING HOSPITALIZATION: None PROCEDURES DURING HOSPITALIZATION: No procedures performed HOSPITAL COURSE: SUBJECTIVE Chief Complaint: Chronic pain, diarrhea, passed out. This is a 52 year old female who presents with chronic pain, diarrheaPMH of Seizures on Neurontin, Post herpetic neuralgia, Migraines, DVT with IVC filter now on pradaxa after PE, She was in her usual state of health until two days prior to admission when she noticed she was having difficulty sleeping, Decreased appetite, as well as syncopal episode twice. She was standing felt dizzy and fell and passed out. This happened twice. Upon awakening was dizzy, weakness, no urinary or stool incontinence, no palpitations, or chest pain prior to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 normal, symmetrical DATA: Diagnostic tests reviewed for today's visit: Most recent labs and imaging results. Assessment/Plan Edgardo Denson is a 52 year old year old female admitted with pain all over, dehydration, and fall. Admitted on 11/12/2017 1:16 AM, Length of stay 1 Days. Active Problems: # Pain all over body (acute on chronic pain) # pain med seeking behaviour # Syncope? Etiology: unclear at this point. May be seizure/ psych related/ opioid related She is very focused on getting pain medications, and does not want to talk about anything else CT brain- no acute findings U tox positive for Phencyclidine, Benzo and Oxycodone PLAN - Neurology consult, CT neck. Patient refusing scans and asking for pain meds - Psychiatry consult - Pain Management consult - Security has been called twice so far on November 12, 2017 by nursing team. Patient appears to be is very difficult to kylee # nausea/vomiging/ diarrhea # dehydration Withdrawal., no sepsis. Diarrhea is on/off and history is unclear PLAN - iv fluids if she allows. Fecal studies pending - no sepsis. Will hold off on antibiotics. # possible UTI Dirty UA. H/o recurrent UTIs/ h/o syncope PLAN - urine culture, Nitrofurantoin Chronic Problems: # Opioid addition and chronic pain. H/o opioid overdose and withdrawal # recurrent syncope. Medication/ psychiatric condition related? 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 Disposition: TBD Plan of care discussed with: Patient, and mineral resources inspector/Other: tried calling daughter x3 attempts With no response on November 12, 2017 Gilberto Mei MD [facility] Medicine (pager [phone]) November 12, 2017 7:54 AM PROGRESS Observed: 11/12/2017 Status: COMPLETED Source: [place] 7:34 AM [facility] OTHER CAMPUS REPOSITORY HNO ID: [id number] Author: Cisco Love Jr. Service: General Internal Medicine Author Type: Physician Type: Progress Notes Filed: 11/12/2017 7:47 AM Note Text: INPATIENT PROGRESS NOTES PATIENT NAME: Edgardo Denson SERVICE DATE: 11/12/2017 SERVICE TIME: 7:35 AM Note: rapid response . Found on floor .Pt seen by nurse few minutes before And came back into room And found on floor . Says whole body Hurts .Nec brace placed . Pt examined No head or pain in bones/spine . Attempted to help up and pt took off collar VS stable BS = 98 Pt keeps saying hasn't slept in [address] head and neck . On pradaxa Verbalizing well. ECG- SR at 90 bpm ?artefact No acute changes Denies chest pain D/W staff SIGNATURE: Cisco Love MD DATE: November 12, 2017 TIME: 7:35 AM PROTIME Collected: 11/12/2017 Status: F Source: [place] 5:53 AM [facility] OTHER [facility]AMP[facility] REPOSITORY TYPE CODE TESTS RESULT OUT OF RANGE REFERENCE UNITS LAB PSEC 9.7-13.0 sec PT Sec 12.0 LAB INR 0.9-1.3 PT INR 1.2 Result Comment: Vitamin K Antagonist (VKA) Therapeutic Range: INR 2 to 3 (Target INR of 2.5) Note: For patients treated with VKA drugs, such as warfarin, the [employer] 2012 Guideline recommends a therapeutic INR range of 2 to 3 (target INR of 2.5). This recommendation includes high-risk patients with antiphospholipid syndrome with previous arterial or venous thromboembolism, current-generation mechanical or bioprosthetic aortic heart valve replacement. Note: Patients with mechanical aortic valve replacement and additional risk factors for thromboembolic events (atrial fibrillation, previous thromboembolism, LV dysfunction, hypercoagulable conditions) or an older generation mechanical AVR (i.e., ball in-Cage) or any mechanical MVR should have a INR therapeutic range of 2.5 to 3.5 (target INR of 3). Ulysses BRAND, et al. Chest 2012, 141:7S-47S Adam RA, et al. [facility] 2017, 70: 252-289 APTT Collected: 11/12/2017 Status: F Source: [place] 5:53 AM [facility] REPOSITORY TYPE CODE TESTS RESULT OUT OF RANGE REFERENCE UNITS LAB APTT 23.0-32.4 sec High APTT 40.9 Result Comment: Unfractionated Heparin Therapeutic Ranges: Standard Heparin Nomogram: 53 to 78 seconds (anti-Xa level of 0.3 to 0.7 U/ml) Low Dose/ACS Nomogram: 49 to 67 seconds (anti-Xa level of 0.2 to 0.5 U/ml) Stroke Treatment Nomogram: 49 to 67 seconds (anti-Xa level of 0.2 to 0.5 U/ml) Note: The APTT therapeutic range has been determined for the current lot of laboratory APTT reagent in use throughout the [facility]. CBC Collected: 11/12/2017 Status: F Source: [place] 5:53 AM [facility] REPOSITORY TYPE CODE TESTS RESULT OUT OF REFERENCE UNITS RANGE LAB WBC 3.70-11.00 k/uL WBC High 11.73 LAB RBC 3.90-5.20 m/uL RBC 4.39 LAB HGB 11.5-15.5 g/dL Hemoglobin 13.6 LAB HCT 36.0-46.0 % Hematocrit 40.9 LAB MCV 80.0-100.0 fL MCV 93.2 LAB MCH 26.0-34.0 pG MCH 31.0 LAB MCHC 30.5-36.0 g/dL MCHC 33.3 LAB RDWCV 11.5-15.0 % RDW-CV 12.8 LAB PLTCT 150-400 k/uL Platelet Count 232 LAB MPV 9.0-12.7 fL MPV 10.6 COMP METABOLIC PANEL Collected: 11/12/2017 Status: F Source: [place] 5:53 AM [facility] OTHER [facility] REPOSITORY TYPE CODE TESTS RESULT OUT OF REFERENCE UNITS RANGE LAB TP 6.3-8.0 g/dL Protein, Total 7.7 LAB ALB 3.9-4.9 g/dL Albumin 4.1 LAB CA 8.6-10.0 mg/dL Calcium, Total 8.9 LAB TBIL 0.2-1.3 mg/dL Bilirubin, Total 0.4 LAB ALKP 36-108 U/L Alkaline Phosphatase 92 LAB AST 13-35 U/L AST 19 Result Comment: Results may be falsely increased due to interference by hemolysis. Suggest reorder as clinically indicated. LAB GLU 74-99 mg/dL Glucose High 104 LAB BUN 7-21 mg/dL BUN 12 LAB CRET 0.58-0.96 mg/dL Creatinine 0.61 LAB NA 136-144 mmol/L Sodium 144 LAB K 3.7-5.1 mmol/L Potassium 3.7 LAB CL 97-105 mmol/L Chloride High 106 LAB CO2 22-33 mmol/L CO2 23 LAB AGAP 9-18 mmol/L Anion Gap 15 LAB ALT 7-38 U/L ALT 16 MAGNESIUM Collected: 11/12/2017 Status: F Source: [place] 5:53 AM [facility] OTHER [facility]AMP[facility] REPOSITORY TYPE CODE TESTS RESULT OUT OF REFERENCE UNITS RANGE LAB MG 1.7-2.6 mg/dL Magnesium 2.4 NURSING PROG Observed: 11/12/2017 Status: COMPLETED Source: [place] 12:57 AM [facility] OTHER [facility]AMPUS REPOSITORY HNO ID: [id number] Author: Lona (Rn) ABIODUN Scanlon Service: (none) Author Type: Registered Nurse Type: Nursing Progress Note Filed: 11/12/2017 8:29 AM Note Text: Nursing Progress Note Patient Name: Edgardo Denson Patient Location: [facility]-1 Daily Note:Pt arrived from ED via cart. Ambulated from jimenez to bed w/o difficulty. Oriented to room. RA. IV capped. Safety interventions discussed. Bed alarm on. Call ornelas in reach. Will cont to monitor. C/O pain and continuously saying she needs her pain medications, that they have decreased her dosage and are not controlling her pain anymore. She then asked if someone would hit her over the head with a mallet or give her a mallet to use on herself. 0125 Pt made aware that she is in under observation and was advised to have someone bring in home medications in AM. Explained to pt that when in under observation insurance will not always cover home medications. Pt states workmans comp will have to cover the cost for my pain medication anyways. I explained to her that the reason she is in here has nothing to do with current pain and that her other medications would not be covered under that either. Pt states she will take our medication and has no one at this time to bring any medications in. 0140 Pt turned off bed alarm on her own. Educated on why she cannot turn off the bed alarm and the importance of making sure she is calling before she gets up. 0145 Sitter ordered by hospitalist. is aware we are short on aids and said we can have one placed when available. 0206 Pt states she does not have her fentanyl patch on and that is the only thing that will help her with her pain. Hospitalist already stated to RN that she will consult pain management. Messaged relayed to pt and pt stated she does not trust [facility] pain management. 0330 Daughter called for update on her mother. Asked daughter for clarification about the fentanyl patch. She stated they have not even picked them up from pharmacy yet due to unavailablity. Per daughter police were called to the house 11/10 and pt was transported to [facility] for psychiatric evaluation due to manic event and was discharged from there same day. Daughter also asking for psychiatric help while weaning off of fentanyl. 0616 Text pg to hospitalist at pts request for diet changed to regular and adding chocolate magic cups. 0620 Orders received from Hospitalist. Along with certification about pt walking in her room and in the jimenez. If orthos negative okay to ambulate in room alone and ambulate in jimenez with assistance. Per hospitalist pt is aware of the risks. 0622 Call out to security to search pt and her belongings. PCNA noted what looked to be a smoking vapor. 0645 Security and NOM up to search pts room. 0700 Security and NOM found a cigarette manager track, cigarettes, pills ( venlafaxine, k+, spironolactone, famotione, doyclomine). Items were placed in the patients home bin. Also a blunt tip syringe was found and deposited in the sharps container. 0702 Pt found unresponsive on the floor by PCNA. Rapid called. See rapid documentation. 07 Day shift hospitalist updated on pts fall. This note was completed by: Lona Scanlon RN ED PROV NOTE Observed: 11/12/2017 Status: COMPLETED Source: [place] 12:12 AM CLINIC OTHER CAMPUS REPOSITORY O ID: [id number] Author: Best Parker DO Service: (none) Author Type: Physician Type: ED Provider Notes Filed: 11/12/2017 12:15 AM Note Text: ED Provider Note Patient Name: Edgardo Denson SERVICE DATE: 11/11/17 History Patient presents with: Syncope HPI Comments: 52-year-old female presents emergency department for complaints of nausea, vomiting and diarrhea with worsening pain. 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 She states she was very functional when she was able to take her pain medication. She states that secondary to her primary care physician weaning her off her medication she is now not capable of even walking or functioning. The patient states that for the last 24-48 hours she has had worsening vomiting with diarrhea. She states she is unable to keep anything down. The patient did have a single event while in the waiting room today. The patient appears dehydrated and cachectic. The patient is currently on anticoagulation for a known history of atrial fibrillation. The patient is also on Neurontin for the management of seizures. The patient continues to express frustration with the fact that her pain is not controlled and that everyone continues to labor her as a drug addict because she takes chronic pain medications. History provided by: Patient PAST MEDICAL HISTORY Diagnosis Date - Asthma - Cellulitis and abscess of leg, except foot 03/01/2007 Orig Leg issue 1996 - Chronic pain syndrome 05/27/2008 Post-herpetic Neuralgia - Depression, reactive - DJD (degenerative joint disease), cervical - Esophageal reflux Hemorrhagic gastritis / hx GI - Headache - Muscle spasm BZD - Other convulsions 02/25/2009 - PE (pulmonary embolism) 07/2006 - PMH - PAST MEDICAL HISTORY OF 07/19/2005 h/o right leg DVT, PE, s/p IVC filter - PMH - PAST MEDICAL HISTORY OF 2005 h/o Osteomyelitis infection - Sleep disturbance, unspecified sleep study 12/21 didn't show sleep apnea but some central apneas - Syncope Dr. 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 PAST SURGICAL HISTORY Procedure Laterality Date - DELIVERY ONLY , low transverse - COLONOSCOP W/ OR W/O [facility] SPEC Colonoscopy - EGD W/O OR W/BRUSH/WASH EGD - LAPAROSCOPIC CHOLEYCYSTECTOMY Cholecystectomy, lap - PAST SURGICAL HISTORY OF 07/20 s/p IVC filter by Dr. Mcpherson - PAST SURGICAL HISTORY OF leg debridements for MRSA FAMILY HISTORY Problem Relation Age of Onset - Ischemic Heart Disease Mother - Stroke Mother - Diabetes Father - renal cell cancer [OTHER] Father Testical cancer, primary renal cancer - testicular cancer [OTHER] Father - Lipids Sister - Lipids Brother - Colon Cancer Paternal Grandmother - stomach cancer [OTHER] Paternal Grandmother - Breast Cancer No Family History Social History Social History Main Topics - Smoking status: Current Every Day Smoker Packs/day: 0.50 Years: 12.00 Types: Cigarettes - Smokeless tobacco: Never Used Comment: Currently smokes two cigarettes a day - Alcohol use No - Drug use: No - Sexual activity: Not Currently ALLERGIES Allergen Reactions - Cellacefate Swelling - Depakote [Divalproe* GI Upset - Dilantin [Phenytoin* GI Upset - Fish Containing Pro* Unknown - Penicillin G GI Upset tolerates zosyn . sdm. 03/2007 TOLERATES KEFLEX 3-31-11 - Shrimp Unknown - Sulfa (Sulfonamide * GI Upset Gastritis - Topamax [Topiramate] Mental Status Change - Haldol [Haloperidol] Mental Status Change, Cough, GI Upset, Itching Review of Systems Constitutional: Positive for appetite change and fatigue. Negative for chills. Eyes: Negative for visual disturbance. Gastrointestinal: Positive for diarrhea, nausea and vomiting. Negative for abdominal pain. Neurological: Positive for dizziness, seizures, syncope, light-headedness and headaches. Psychiatric/Behavioral: Positive for agitation. The patient is nervous/anxious. All other systems reviewed and are negative. Physical Exam BP 131/62 Pulse 103 Resp 18 SpO2 97% Physical Exam Constitutional: She is oriented to person, place, and time. She appears well-developed. HENT: Right Ear: External ear normal. Left Ear: External ear normal. Nose: Nose normal. Mouth/Throat: Oropharynx is clear and moist. Eyes: EOM are normal. Pupils are equal, round, and reactive to light. No scleral icterus. Neck: Normal range of motion. No JVD present. Cardiovascular: Regular rhythm, normal heart sounds and intact distal pulses. Tachycardia present. Pulmonary/Chest: Effort normal and breath sounds normal. Abdominal: Soft. Bowel sounds are normal. She exhibits no distension. There is no tenderness. Musculoskeletal: Normal range of motion. She exhibits tenderness. Neurological: She is alert and oriented to person, place, and time. No cranial nerve deficit. Skin: Skin is warm and dry. Psychiatric: Her behavior is normal. Nursing note and vitals reviewed. Diagnostic Testing ED Labs Ordered and Reviewed CBC + AUTO DIFF (AK,AV,EU,FV,HL,ANGELES,MM,SP) - Abnormal; Notable for the following: Result Value Ref Range WBC 13.75 (*) 3.70 - 11.00 k/uL RBC 5.23 (*) 3.90 - 5.20 m/uL Hemoglobin 16.5 (*) 11.5 - 15.5 g/dL Hematocrit 48.1 (*) 36.0 - 46.0 % Abs Neut (ANC) 10.27 (*) 1.45 - 7.50 k/uL All other components within normal limits COMPREHENSIVE METABOLIC PANEL (AK,AV,EU,FV,HL,ANGELES,MM,SP) - Abnormal; Notable for the following: Protein, Total 9.8 (*) 6.3 - 8.0 g/dL Albumin 5.1 (*) 3.9 - 4.9 g/dL Calcium 10.3 (*) 8.6 - 10.0 mg/dL Alkaline Phosphatase 118 (*) 36 - 108 U/L Sodium 146 (*) 136 - 144 mmol/L All other components within normal limits MAGNESIUM BLOOD (AK,AV,EU,FV,HL,ANGELES,MM,SP) - Abnormal; Notable for the following: Magnesium 2.7 (*) 1.7 - 2.6 mg/dL All other components within normal limits CRITICAL CARE PROFILE-VENOUS (AV,FV,HL) - Abnormal; Notable for the following: pO2, Venous 20 (*) 35 - 45 mm Hg Bicarbonate, Venous 30 (*) 24 - 28 mmol/L Oxygen Saturation, Venous 29 (*) 60 - 85 % Respiratory Hb 11.3 (*) 11.5 - 15.5 g/dL Sodium (RT) 150 (*) 132 - 148 mmol/L Ionized Calcium (RT) 1.31 (*) 1.08 - 1.30 mmol/L All other components within normal limits ALCOHOL / ETHANOL BLOOD (AK,AV,EU,FV,HL,ANGELES,MM,SP) TROPONIN T (AV,EU,FV,HL,ANGELES,MM,SP) URINE DRUG SCREEN (AK,AV,EU,FV,HL,ANGELES,MM,SP) URINALYSIS WITH MICROSCOPIC (AK,AV,EU,FV,HL,ANGELES,MM,SP) CT BRAIN WO IVCON Final Result IMPRESSION: Normal examination of the brain. Transcribed Using Voice Recognition Transcribe Date/Time: Nov 11 2017 10:35P Dictated by: LUANNE SANCHEZ MD This examination was interpreted and the report reviewed and electronically signed by: LUANNE SANCHEZ MD on Nov 11 2017 10:40PM EST XR CHEST 1V FRONTAL PORT Final Result IMPRESSION: 1. Lines, Tubes, and Devices: N/A 2. Lungs and Pleura: No consolidation or effusion. Emphysematous changes are noted with hyperinflation and distortion of the pulmonary architecture. 3. Cardiomediastinal silhouette: The cardiac silhouette, mediastinum and pulmonary vessels are unremarkable. 4. Other: N/A Transcribed Using Voice Recognition Transcribe Date/Time: Nov 11 2017 8:03P Dictated by: LATOYA MOSELEY MD This examination was interpreted and the report reviewed and electronically signed by: LATOYA MOSELEY MD on Nov 11 2017 8:03PM EST Procedures Medical Decision Making / ED Course ED Course The patient be admitted secondary to syncope versus breakthrough seizure. 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 The patient is not currently on any fentanyl as her patch recently came off. She states this was her last one. The patient be admitted for IV hydration, stabilization and outpatient follow- up with pain management. Encounter Diagnosis ICD-10-CM 1. Syncope and collapse R55 2. Diarrhea, unspecified type R19.7 3. Chronic pain syndrome G89.4 Plan The Patient was ADMITTED TO: Regular nursing floor. Condition at time of disposition: stable SIGNATURE: Best Parker, DO Best Parker, 11/12/17 0015 HISTORY PHYSICAL Observed: 11/11/2017 Status: COMPLETED Source: [place] 11:06 PM CLINIC OTHER CAMPUS REPOSITORY HNO ID: [id number] Author: Liza Woodall Service: Hospital Medicine Author Type: Physician Type: HANDP Filed: 11/12/2017 5:52 AM Note Text: HOSPITAL MEDICINE HISTORY AND PHYSICAL PCP: Ryan Castano MD NIGHT AND WEEKEND COVERAGE: Patient admitted to [facility] From 7am - 5pm, please contact pager Treatment team for patient issues. From 5pm - 7am, please contact the Night Hospitalist on pager [phone] for patient issues. SUBJECTIVE Chief Complaint: Chronic pain, diarrhea, passed out. HPI: This is a 52 year old female who presents with chronic pain, diarrhea PMH of Seizures on Neurontin, Post herpetic neuralgia, Migraines, DVT with IVC filter now on pradaxa after PE, She was in her usual state of health until two days prior to admission when she noticed she was having difficulty sleeping, Decreased appetite, as well as syncopal episode twice. She was standing felt dizzy and fell and passed out. This happened twice. Upon awakening was dizzy, weakness, no urinary or stool incontinence, no palpitations, or chest pain prior to fall. She also reports increase stool frequency and volume, greenish watery, over 8 times a day that started on the day of presentation. + abdominal pain in the right lower quadrant area described as aching, no radiation no excacerbation or relieving factor. no nausea, + weight loss. ROS is negative for fever chills , vomiting. Chest pain or palpitations, denies any alcohol intake. Vitals: Afebrile HR 121 20 130/71 97% on room air Labs with Leukocytosis 13.75, h/h 16.5/48.1 , normal platelets, left shift. CBC CMP: Na o 146, Tprot of 9.8, Calcium 10.3, Mag 2.7, ALP 118, AST and ALT wnl, Trop < 0.1010, lactate 1.9 Alcohol level <11 BVG wnl, CXR: 2. Lungs and Pleura: ?No consolidation or effusion. ?Emphysematous changes are noted with hyperinflation and distortion of the pulmonary architecture. 3. Cardiomediastinal silhouette: ?The cardiac silhouette, mediastinum and pulmonary vessels are unremarkable. CT Brain: Normal examination of the brain. PAST MEDICAL HISTORY Diagnosis Date - Asthma - Cellulitis and abscess of leg, except foot 03/01/2007 Orig Leg issue 1996 - Chronic pain syndrome 05/27/2008 Post-herpetic Neuralgia - Depression, reactive - DJD (degenerative joint disease), cervical - Esophageal reflux Hemorrhagic gastritis / hx GI - Headache - Muscle spasm BZD - Other convulsions 02/25/2009 - PE (pulmonary embolism) 07/2006 - PMH - PAST MEDICAL HISTORY OF 07/19/2005 h/o right leg DVT, PE, s/p IVC filter - H - PAST MEDICAL HISTORY OF 2005 h/o Osteomyelitis infection - Sleep disturbance, unspecified sleep study 12/21 didn't show sleep apnea but some central apneas - Syncope Dr. Rae / [place] - Tobacco use disorder - Tubulovillous adenoma of colon 2008 Sigmoid PAST SURGICAL HISTORY Procedure Laterality Date - DELIVERY ONLY , low transverse - COLONOSCOP W/ OR W/O [facility] SPEC Colonoscopy - EGD W/O OR W/BRUSH/WASH EGD - LAPAROSCOPIC CHOLEYCYSTECTOMY Cholecystectomy, lap - PAST SURGICAL HISTORY OF 07/20 s/p IVC filter by Dr. Mcpherson - PAST SURGICAL HISTORY OF leg debridements for MRSA FAMILY HISTORY Problem Relation Age of Onset - Ischemic Heart Disease Mother - Stroke Mother - Diabetes Father - renal cell cancer [OTHER] Father Testical cancer, primary renal cancer - testicular cancer [OTHER] Father - Lipids Sister - Lipids Brother - Colon Cancer Paternal Grandmother - stomach cancer [OTHER] Paternal Grandmother - Breast Cancer No Family History Social History Substance Use Topics - Smoking status: Current Every Day Smoker Packs/day: 0.50 Years: 12.00 Types: Cigarettes - Smokeless tobacco: Never Used Comment: Currently smokes two cigarettes a day - Alcohol use No Medications: No current facility-administered medications on file prior to encounter. Current Outpatient Prescriptions on File Prior to Encounter: dabigatran etexilate (PRADAXA) 150 mg cap Take 1 capsule by mouth twice daily. venlafaxine ER (EFFEXOR XR) 150 mg 24 hr capsule Take 2 capsules by mouth once daily. promethazine (PHENERGAN) 25 mg tablet Take 1 tablet by mouth every 8 hours as needed. fentaNYL (DURAGESIC) 12 mcg/hr pt72 Use 1 patch every 3 days with 25 for total of 37 for 2 weeks then stop.Earliest Fill Date: 11/02/17 clonazePAM (KLONOPIN) 0.5 mg tablet Take 1 tablet by mouth three times daily as needed for up to 30 days. oxyCODONE-acetaminophen (PERCOCET) 5-325 mg tablet 1 po q4h prn breakthrough pain (MAXIMUM 6 pills/day)Earliest Fill Date: 11/05/17 dicyclomine (BENTYL) 20 mg tablet Take 1 tablet by mouth four times daily. gabapentin (NEURONTIN) 300 mg capsule take 3 capsules by mouth three times a day potassium chloride 20 mEq TbER Take 1 tablet by mouth every Tuesday,Tuesday,Tuesday. (Patient taking differently: Take 1 tablet by mouth every Tuesday,Tuesday,Tuesday. Pt states that she takes it PRN ) omeprazole (PRILOSEC) 20 mg capsule Take 1 capsule by mouth once daily. fluticasone-salmeterol (ADVAIR DISKUS) 500-50 mcg/dose dsdv Inhale 1 Puff as instructed twice daily. RINSE AND GARGLE MOUTH WITH WATER AFTER EACH USE. potassium chloride ER (K-DUR, KLOR-CON) 20 mEq tablet Take 1 tablet by mouth once daily. loperamide (IMODIUM) 2 mg cap(s) Take 1 capsule by mouth as needed for Diarrhea. Cetirizine (ZYRTEC) 10 mg cap Take by mouth once daily. ergocalciferol, vitamin D2, (DRISDOL) 50,000 unit capsule Take 1 capsule by mouth every Tuesday. Indications: VITAMIN D DEFICIENCY PRADAXA 150 mg cap take 1 capsule by mouth twice a day azithromycin (ZITHROMAX Z-JEREMY) 250 mg tablet Use as directed. spironolactone (ALDACTONE) 25 mg tablet Take 1 tablet by mouth once daily. (Patient taking differently: Take 25 mg by mouth once daily. Takes as needed ) Allergies: ALLERGIES Allergen Reactions - Cellacefate Swelling - Depakote [Divalproe* GI Upset - Dilantin [Phenytoin* GI Upset - Fish Containing Pro* Unknown - Penicillin G GI Upset tolerates zosyn . sdm. 03/2007 TOLERATES KEFLEX 11-12-10 - Shrimp Unknown - Sulfa (Sulfonamide * GI Upset Gastritis - Topamax [Topiramate] Mental Status Change - Haldol [Haloperidol] Mental Status Change, Cough, GI Upset, Itching Review of Systems: Negative except as listed above OBJECTIVE: PHYSICAL EXAM BP 131/62 Pulse 103 Resp 18 SpO2 97% PHYSICAL EXAMINATION: General appearance: Well appearing, alert, in no acute distress Oropharynx: Dry Neck: Supple Back: Normal exam Lungs: Lungs clear to auscultation. No wheezing, rhonchi, rales Heart: RRR without murmur, gallop, or rubs. No ectopy Abdomen: Normal abdominal exam, Abdomen soft, TTP in the RLQ, no rebound tenderness or guarding. Bowel sounds normal. No masses, organomegaly Extremities: No deformities, edema, skin discoloration, clubbing or cyanosis. Good capillary refill. Musculoskeletal: No joint swelling, deformity, or tenderness Peripheral pulses: Normal Neuro: Gait normal. Reflexes normal and symmetric. Sensation grossly intact. LABS CBC, Coags, BMP, Mg, Phos Recent Labs 11/11/17211311/11/172101 WBC -- 13.75* HB -- 16.5* HCT -- 48.1* PLT -- 311 NA -- 146* K -- 4.3 CHLOR -- 104 CO2 -- 29 BUN -- 12 CREAT -- 0.74 GLUC -- 97 IC 1.31* -- CA -- 10.3* MG -- 2.7* CSF AND Dilantin Liver Function, Amylase, AND Lipase Recent Labs [id number]/11/172101 TPROT -- 9.8* ALB -- 5.1* ALT -- 22 AST -- 28 ALKPHOS -- 118* TBILI -- 0.3 LACT 1.9 -- Cardiac Enzymes Recent Labs 11/11/172101 TROPT <0.010 ABGs Recent Labs 11/11/172113 TEMP 37.0 Imaging: CXR with emphysematous changes, CT brain: no acute abnormality L Assessment/Plan Pt is a 52 YO F with a PMH of Seizure disorder on Gabapentin, GERD< Depression, Chronic vein thrombosis, Chemical dependency, Asthma who presents to the hospital given increased diarrhea, and syncopal episodes x 2 likely secondary to orthostasis. Pt is a complicated historian with multiple complains really difficult. To delineate true symptoms. Syncope evaluation r/o seizures given history. S/p IV hydration, Neuro and pain management consult in AM. #Syncope Likely secondary to orthosis, r/o Seizure r/o Arythmia. CT head negative Admit With tele monitoring Hydrate Neurology consult in AM. Continue home gabapentin at 300mg TID. # Diarrhea, nausea, likely sdecondary to opiod withdrawal R/o infectious etiology given leukocytosis although this could be secondary to hemoconcentration. Treat symptomatically Phenergan for nausea, continue bentyl, Obtain fecal leukocytes. Obtain KUB, Abdominal exam is benign monitor for clinical changes. #Dehydration Labs revealing hemoconcentration, Tachycardic on admission Hydrate and monitor #PE/DVT Has IVC filter on pradaxa. On pradaxa #Chronic pain Reports chronic bone pain. Pain management consulted for plans #muscle spasms Clonazepam #Psychiatric concerns/Insomnia, Somatization Psych consulted No SI or HI however pt with ? Manic episodes Sitter 1:1 Psych evaluation. Close monitoring Continue home venlafaxin dose. #GERD Cont omeprazole #Asthma Cont advair, prn albuterol Would prefer patient to be well hydrated and observed for at least 12 prior to walking around however pt insistent on walking around, will obtain orthos if negative ok for patient to walk. Risk discussed with pt and she is accepting. VTE Prophylaxis: Pt on therapeutic AC with pradaxa Disposition: Home Plan of care discussed with: Patient SIGNATURE: Liza Woodall MD PATIENT NAME: Edgardo Denson DATE: November 11, 2017 TIME: 11:06 PM PAGER/CONTACT #: [id number] BRAIN WO IVCON Observed: 11/11/2017 Status: F Source: [place] 10:31 PM CLINIC OTHER CAMPUS REPOSITORY * * *Final Report* * * DATE OF EXAM: Nov 11 2017 10:31PM [facility] 0504 - CT BRAIN WO IVCON / PROCEDURE REASON: Syncope * * * * Physician Interpretation * * * * RESULT: EXAMINATION: CT BRAIN WO IVCON HISTORY: Syncope. This information is taken directly from the linseed oil order filler system. TECHNIQUE: Serial axial images without IV contrast were obtained from the vertex to the foramen magnum. MQ: [id number] CT Dose-Length Product (DLP): 770 mGy*cm CT Dose Reduction Employed: No dose reduction techniques were required COMPARISON: 03/14/2017. RESULT: Post-operative change: None. Acute change: No evidence of an acute infarct or other acute parenchymal process. Hemorrhage: No evidence of acute intracranial hemorrhage. Mass Lesion / Mass Effect: There is no evidence of an intracranial mass or extraaxial fluid collection. No significant mass effect. Chronic change: None apparent. Parenchyma: There is no significant volume loss. The brain parenchyma is otherwise within normal limits for age. Incidental prominent perivascular space inferior left lentiform nuclei. Ventricles: The ventricles are within normal limits of size and configuration for age. Paranasal sinuses and skull base: The visualized paranasal sinuses are grossly clear. The skull base and imaged soft tissues are unremarkable. IMPRESSION: Normal examination of the brain. Transcribed Using Voice Recognition Transcribe Date/Time: Nov 11 2017 10:35P Dictated by: LUANNE SANCHEZ MD This examination was interpreted and the report reviewed and electronically signed by: LUANNE SANCHEZ MD on Nov 11 2017 10:40PM EST [id number] CRIT CARE PROFILE-TRICIA Collected: 11/11/2017 Status: F Source: [facility], [facility], AVN USE ONLY 9:14 PM CLINIC OTHER CAMPUS REPOSITORY TYPE CODE TESTS RESULT OUT OF REFERENCE UNITS RANGE LAB TEMP C Temperature, Body 37.0 LAB DRWSIT Drawsite Venous LAB ATTEMP Attempts 1 LAB VPH 7.32-7.42 pH 7.36 LAB VPC2 42-55 mm Hg pCO2 55 LAB VPO2 35-45 mm Hg pO2 Low 20 LAB VHC3 24-28 mmol/L Bicarbonate High 30 LAB VBE mmol/L Base Excess 4 Result Comment: -2 TO 2 LAB VO2S 60-85 % Oxygen 29 Low Saturation LAB HGBB 11.5-15.5 g/dL 11.3 Low Hemoglobin,Total,A CL LAB NAB 132-148 mmol/L Sodium,Whole 150 High Bld LAB KWB 3.5-5.0 mmol/L Potassium, 3.9 Whole Bld LAB CLWB 98-110 mmol/L Chloride, 108 Whole Bld LAB IC 1.08-1.30 mmol/L Calcium, Ion, 1.31 High WB LAB GLB 60-105 mg/dL Glucose,Whole 95 Bld LAB LACT 0.5-2.2 mmol/L Lactate 1.9 LAB DEVICE Device NONE LAB VOAD O2 21 Administered LAB ACALLN Andrei Test Not Applicable CBC AND DIFFERENTIAL Collected: 11/11/2017 Status: F Source: [place] 9:02 PM CLINIC OTHER CAMPUS REPOSITORY TYPE CODE TESTS RESULT OUT OF REFERENCE UNITS RANGE LAB WBC 3.70-11.00 k/uL WBC High 13.75 LAB RBC 3.90-5.20 m/uL RBC High 5.23 LAB HGB 11.5-15.5 g/dL High Hemoglobin 16.5 LAB HCT 36.0-46.0 % High Hematocrit 48.1 LAB MCV 80.0-100.0 fL MCV 92.0 LAB MCH 26.0-34.0 pG MCH 31.5 LAB MCHC 30.5-36.0 g/dL MCHC 34.3 LAB RDWCV 11.5-15.0 % RDW-CV 12.2 LAB PLTCT 150-400 k/uL Platelet Count 311 LAB MPV 9.0-12.7 fL MPV 10.6 LAB ANEUT % Neut% 74.7 LAB AANEUT 1.45-7.50 k/uL Abs Neut High 10.27 LAB ALYMP % Lymph% 19.6 LAB AALYMP 1.00-4.00 k/uL Abs Lymph 2.69 LAB AMONO % [place]% 4.6 LAB AAMONO <0.87 k/uL Abs [place] 0.63 LAB AEOS % Eosin% 0.9 LAB AAEOS <0.46 k/uL Abs Eosin 0.13 LAB ABASO % Baso% 0.2 LAB AABASO <0.11 k/uL Abs Baso 0.03 LAB DTYP DTYPE Auto Diff TROPONIN T Collected: 11/11/2017 Status: F Source: [place] 9:02 PM CLINIC OTHER CAMPUS REPOSITORY TYPE CODE TESTS RESULT OUT OF REFERENCE UNITS RANGE LAB TROPT 0.000-0.029 ng/mL Troponin T <0.010 COMP METABOLIC PANEL Collected: 11/11/2017 Status: F Source: [place] 9:02 PM [facility] OTHER CAMPUS REPOSITORY TYPE CODE TESTS RESULT OUT OF REFERENCE UNITS RANGE LAB TP 6.3-8.0 g/dL Protein, High Total 9.8 LAB ALB 3.9-4.9 g/dL Albumin High 5.1 LAB CA 8.6-10.0 mg/dL Calcium, High Total 10.3 LAB TBIL 0.2-1.3 mg/dL Bilirubin, Total 0.3 LAB ALKP 36-108 U/L Alkaline High Phosphatase 118 LAB AST 13-35 U/L AST 28 Result Comment: Results may be falsely increased due to interference by hemolysis. Suggest reorder as clinically indicated. LAB GLU 74-99 mg/dL Glucose 97 LAB BUN 7-21 mg/dL BUN 12 LAB CRET 0.58-0.96 mg/dL Creatinine 0.74 LAB NA 136-144 mmol/L Sodium High 146 LAB K 3.7-5.1 mmol/L Potassium 4.3 LAB CL 97-105 mmol/L Chloride 104 LAB CO2 22-33 mmol/L CO2 29 LAB AGAP 9-18 mmol/L Anion Gap 13 LAB ALT 7-38 U/L ALT 22 LAB GFRAA eGFR- Amer. >60 LAB GFRNAA . eGFR-All Other Races >60 Result Comment: eGFR (Estimated GFR) Units of measure: mL/min/1.73 meters squared eGFR is derived from the reexpressed MDRD Study equation using the following parameters: serum creatinine, age, gender and race. The creatinine assay has been calibrated to be traceable to IDMS. An eGFR <60 mL/min/1.73m2 for >3 months is consistent with chronic kidney disease. Refer to KDOQI guidelines for clinical interpretation. In patients with unstable renal function, e.g. those with acute kidney injury, the eGFR may not accurately reflect actual GFR. ETHANOL Collected: 11/11/2017 Status: F Source: [place] 9:02 PM [facility] OTHER CAMPUS REPOSITORY TYPE CODE TESTS RESULT OUT OF REFERENCE UNITS RANGE LAB ALCO <11 mg/dL Ethanol <11 MAGNESIUM Collected: 11/11/2017 Status: F Source: [place] 9:02 PM [facility] OTHER CAMPUS REPOSITORY TYPE CODE TESTS RESULT OUT OF REFERENCE UNITS RANGE LAB MG 1.7-2.6 mg/dL High Magnesium 2.7 XR CHEST 1V FRONTAL Observed: 11/11/2017 Status: F Source: [facility] 7:55 PM [facility] OTHER CAMPUS REPOSITORY * * *Final Report* * * DATE OF EXAM: Nov 11 2017 7:55PM HCX [id number] - XR CHEST 1V FRONTAL PORT / PROCEDURE REASON: Syncope * * * * Physician Interpretation * * * * RESULT: EXAMINATION: CHEST RADIOGRAPH (PORTABLE SINGLE VIEW AP) Exam Date/Time: 11/11/2017 7:55 PM Indication: Syncope MQ: [id number] Comparison: 05/20/2017 RESULTS: See Impression. IMPRESSION: 1. Lines, Tubes, and Devices: N/A 2. Lungs and Pleura: No consolidation or effusion. Emphysematous changes are noted with hyperinflation and distortion of the pulmonary architecture. 3. Cardiomediastinal silhouette: The cardiac silhouette, mediastinum and pulmonary vessels are unremarkable. 4. Other: N/A Transcribed Using Voice Recognition Transcribe Date/Time: Nov 11 2017 8:03P Dictated by: LATOYA MOSELEY MD This examination was interpreted and the report reviewed and electronically signed by: LATOYA MOSELEY MD on Nov 11 2017 8:03PM EST [id number] ED TRIAGE NOTE Observed: 11/11/2017 Status: COMPLETED Source: [place] 7:47 PM [facility] OTHER CAMPUS REPOSITORY HNO ID: [id number] Author: Alessandra Conde (Pa) Service: Emergency Medicine Author Type: Physician Auto Rebuilder Type: ED Triage Notes Filed: 11/11/2017 7:49 PM Note Text: ED INTAKE NOTE Patient Name: Edgardo Denson Service Date: 11/11/17 BRIEF HPI: 82-year-old female who is brought in by her daughter reporting nausea vomiting and diarrhea when shortly after patient became syncopal in the lobby and was taken Bactrim in exam room. The patient becomes conscious when taken to an exam room and says she she can go back to the lobby and that sometimes she faints or has seizures. She begins to talk about recently having her fentanyl weaned at her pain management office. She is placed on monitor, EKG obtained, and IV established Patient taken to exam room in wheelchair with brief history. No additional exam. No seizure activity was witnessed in the lobby. She slumped over in the wheelchair that she was dropped off in by her daughter and briefly became unresponsive. INTAKE WORKUP: Bloodwork: CBC CMP Cardiac Enzymes Lactate Mag EKG Urinalysis Imaging: CT: Brain CXR SIGNATURE: Alessandra Conde PA-C COMPLETE BLOOD COUNT Collected: 11/09/2017 Status: F Source: THE [facility] 7:28 PM SYSTEM REPOSITORY TYPE CODE TESTS RESULT OUT OF RANGE REFERENCE UNITS LAB WBC 4.5-11.5 K/uL WBC 9.8 LAB RBC 4.00-5.20 M/uL RBC 4.99 LAB HGB 12.0-15.0 g/dL High HGB 15.6 LAB HCT 36.0-46.0 % HCT 45.2 LAB MCV 80-100 fL MCV 91 LAB MCH 26.0-34.0 pg MCH 31.2 LAB MCHC 32.0-35.9 g/dL MCHC 34.5 LAB PLT 150-400 K/uL PLT 240 LAB RDW 11.5-14.5 % RDW-CV 13.0 LAB MPV 8.5-11.5 fL Low MPV 8.1 Performed By: #### CBC #### [facility] [address] [place], [address] MAGNESIUM Collected: 11/09/2017 Status: F Source: THE [facility] 7:28 PM SYSTEM REPOSITORY TYPE CODE TESTS RESULT OUT OF RANGE REFERENCE UNITS LAB mag 1.6-2.8 mg/dL MG 1.8 Performed By: #### MG, ETOH, CH8 #### [facility] [address] [place], [address] ETHANOL, SERUM Collected: 11/09/2017 Status: F Source: THE [facility] 7:28 PM SYSTEM REPOSITORY TYPE CODE TESTS RESULT OUT OF REFERENCE UNITS RANGE LAB ETHANOL None Detected mg/dL ETHANOL < 10 Performed By: #### MG, ETOH, CH8 #### [facility] [address] [place], [address] BASIC METABOLIC PANEL Collected: 11/09/2017 Status: F Source: THE [facility] 7:28 PM SYSTEM REPOSITORY TYPE CODE TESTS RESULT OUT OF REFERENCE UNITS RANGE LAB GLU 68-110 mg/dL GLU 104 LAB NA3 135-148 mmol/L NA 141 LAB POT 3.3-5.3 mmol/L K 3.9 LAB CO2 21-30 mmol/L CO2 24 LAB CHLOR 97-111 mmol/L CL 108 LAB BUN 8-22 mg/dL BUN 10 LAB CREAT 0.50-1.10 mg/dL CREAT 0.56 LAB CA 8.4-10.4 mg/dL CA 9.3 LAB ANION GAP 5-13 ANION GAP 13 LAB eGFR >=60 mL/min/1.73 sqm ESTIMATED GFR 107 (CKD-EPI) Performed By: #### MG, ETOH, CH8 #### [facility] [address] [place], [address] URINALYSIS - CHEMISTRY Collected: 11/09/2017 Status: F Source: THE ([facility]) 7:28 PM [facility] TYPE CODE TESTS RESULT OUT OF REFERENCE UNITS RANGE LAB UCOLOR Yellow U COLOR Yellow LAB UAPP Clear U APPEAR Clear LAB U PH 5.0-8.0 U PH 5.5 LAB USG U SG 1.025 LAB UPROTEIN Negative mg/dL U PROTEIN Negative LAB U BLOOD Negative U BLOOD Negative LAB URINBILI Negative U BILI Negative LAB U UROBILI 0.1 - 1.0 mg/dL U UROBILI 0.2 LAB UKETONE Negative mg/dL U KETONE Negative LAB U LEUK Negative U LEUK Negative LAB UNITR Negative U NITRITE Negative LAB UGLU Negative mg/dL GLUCOSE, Negative URINE Performed By: #### [id number] #### [facility] [address] [place], [address] HCG URINE Collected: 11/09/2017 Status: F Source: THE [facility] 7:28 PM SYSTEM REPOSITORY TYPE CODE TESTS RESULT OUT OF REFERENCE UNITS RANGE LAB B9 Negative HCG, Negative URINE Performed By: #### UR BETA #### [facility] [address] [place], [address] TOXICOLOGY SCREEN, Collected: 11/09/2017 Status: F Source: THE UNCONFIRMED 7:28 PM [facility] RE[facility] Order Comment: This toxicology screen provides unconfirmed analytical results suitable for clinical management. Results are reported as positive (at or above the cutoff) or negative (below the cutoff). Amphetamine 1000 ng/mL Barbiturate 200 ng/mL Methadone 300 ng/mL Opiate 300 ng/mL Oxycodone 100 ng/mL Fentanyl 2 ng/mL Hydrocodone 100 ng/mL Benzodiazepine 200 ng/mL Cocaine 300 ng/mL PCP 25 ng/mL THC 50 ng/mL Positive qualitative result does not indicate or measure intoxication. For additional information see Link below or for toxicology consultation please call the laboratory at [phone]. TYPE CODE TESTS RESULT OUT OF RANGE REFERENCE UNITS LAB AMPH Negative AMPH Negative LAB BARBIT Negative BARBIT Negative LAB METHADON Negative METHADONE Negative LAB OPIATE Negative OPIATE Negative LAB cy Negative Abnormal OXYCODONE, Positive URINE LAB FENTSCUR Negative Abnormal FENTANYL Positive SCREEN, URINE LAB HYDROCODONE Negative GC/MS (PM) HYDROCODONE Negative (PM) LAB BENZO Negative BENZO Abnormal Positive LAB COCAINE CL Negative COCAINE CL Negative LAB PHENCYCL Negative PHENCYCL Negative LAB THC CL Negative THC CL Negative LAB gR Cutoff: 10 mg/dL ALCOHOL Negative Performed By: #### TOX SC #### [facility] [address] [place] [address], [id number] PROGRESS Observed: 10/31/2017 Status: COMPLETED Source: [place] 7:52 PM [facility] REPOSITORY O ID: [id number] Author: Ryan Castano Service: (none) Author Type: Physician Type: Progress Notes Filed: 10/31/2017 8:22 PM Note Text: Edgardo Denson is a 52 year old female who presents to followup accompanied by her daughter Lindsey, grandson Mickey and their friend Vandana, with whom they are living currently. At the last visit with me on 10/08/17 the AANDP was as follows: 1. Other chronic pain - ICD9: 338.29, ICD10: G89.29 I am very concerned about providing her with controlled substances in light of her mental health disturbance and recent overdose although she denies that it was a suicidal gesture. I advised that I would need to taper her medications but that I would do so slowly to avoid discomfort. She is currently taking fentanyl 50 ?g per hour every 3 days. I'm going to reduce her to 37 ?g for 2 weeks and then to 25 ?g, and we'll see her back in one month. She did not object to this plan. - OXYCODONE-ACETAMINOPHEN 5 MG-325 MG TABLET - FENTANYL 12 MCG/HR TRANSDERMAL PATCH - FENTANYL 25 MCG/HR TRANSDERMAL PATCH ? 2. Muscle spasm - ICD9: 728.85, ICD10: M62.838 This is also a target for taper. Ideally, she would be seeing a psychiatrist. She has been resistant to that idea. - CLONAZEPAM 0.5 MG TABLET ? 3. Opioid Dependency - as above. Her daughter reports that Edgardo had a witnessed syncopal episode yesterday. It occurred about 5 PM. It was witnessed by her daughter. She was standing and had not eaten all day. She became dizzy and then lost consciousness. There were no shaking movements associated and she was fine immediately upon awakening. She was fine immediately upon awakening. There was no associated chest pain or shortness of breath. She has been eating poorly for a long time. She has had syncopal spells as well as seizures in the past. She seems fine today. There was a problem with our plan for tapering her fentanyl patches. Her insurance did not allow her to order picker the 12 ?g patches for 2 weeks after the prescription was written. She used 1.5 25 ?g patches for the first 2 weeks and subsequently is using 1 - 25 ?g and now two 12 ?g patches. She complains bitterly that her pain is worse and that she is not able to do things that she enjoys such as play with her grandson. She does not want to taper her fentanyl and she wants refills of Phenergan and dicyclomine. She blames pain physicians at [facility] for getting her addicted to the pain pills in the first place. She would be willing to see a pain physician elsewhere but does not think they will prescribe for her. She reports that I do not care for her and I do not understand her discomfort. 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 Anemia, Unspecified Other Pulmonary Embolism and Infarction 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) Use of Anticoagulants Muscle Spasm Iron Defic Anemia NEC Other Chronic Pain Chemical Dependency (Hcc) Left Arm Weakness Chest Pain Depression Lethargy Seizure disorder (HCC) Djd (Degenerative Joint Disease), Cervical Emphysema of Lung (Hcc) 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 promethazine (PHENERGAN) 25 mg tablet Take 1 tablet by mouth every 8 hours as needed. PRADAXA 150 mg cap take 1 capsule by mouth twice a day gabapentin (NEURONTIN) 300 mg capsule take 3 capsules by mouth three times a day potassium chloride 20 mEq TbER Take 1 tablet by mouth every Tuesday,Tuesday,Tuesday. (Patient taking differently: Take 1 tablet by mouth every Tuesday,Tuesday,Tuesday. Pt states that she takes it PRN ) venlafaxine XR (EFFEXOR XR) 150 mg 24 hr capsule Take 2 capsules by mouth once daily. omeprazole (PRILOSEC) 20 mg capsule Take 1 capsule by mouth once daily. fluticasone-salmeterol (ADVAIR DISKUS) 500-50 mcg/dose dsdv Inhale 1 Puff as instructed twice daily. RINSE AND GARGLE MOUTH WITH WATER AFTER EACH USE. potassium chloride ER (K-DUR, KLOR-CON) 20 mEq tablet Take 1 tablet by mouth once daily. spironolactone (ALDACTONE) 25 mg tablet Take 1 tablet by mouth once daily. (Patient taking differently: Take 25 mg by mouth once daily. Takes as needed) loperamide (IMODIUM) 2 mg cap(s) Take 1 capsule by mouth as needed for Diarrhea. Cetirizine (ZYRTEC) 10 mg cap Take by mouth once daily. ergocalciferol, vitamin D2, (DRISDOL) 50,000 unit capsule Take 1 capsule by mouth every Tuesday. Indications: VITAMIN D DEFICIENCY No current facility-administered medications on file prior to visit. Physical Examination: BP 110/77 (BP Site: Left Arm, BP Position: Sitting, BP Cuff Size: Regular Adult) Pulse 91 Wt 54.4 kg (120 lb) BMI 20.6 kg/m2 General appearance: Well appearing, alert, in no acute distress. Eye: No pallor or icterus Lung: Clear to percussion and auscultation Heart: HS's normal, RRR, no ectopy, no gallop or rubs, no murmur Neuro: Speech is normal and cranial nerves are grossly normal. She accesses the exam table without difficulty. Mental Status: Initially, as she is discussing her seizure episode with me, she is able to attend and give me a history fairly well despite the distractions of her grandson in the room. Once she realizes that I'm going to continue tapering her narcotics, she began yelling. She continued this into the waiting room. I told her that she could not behave like that in the waiting room as she was upsetting other patients. Finally, she left the office. ECG: normal ASSESSMENT/PLAN: 1. Syncope, unspecified syncope type - ICD9: 780.2, ICD10: R55 (primary diagnosis) I'm not certain what caused this syncopal episode however she appears to be well and had preceding dizziness and recovered completely immediately upon awakening. I'm not going to pursue this further beyond her ECG which was normal. - ECG COMPLETE W INTERPRETATION 2. Other chronic pain - ICD9: 338.29, ICD10: G89.29 I'm going to continue tapering her at this point she will reduce to 12 ?g of fentanyl daily for the next week or so and then she will be out of fentanyl. At this point I am refilling her oxycodone, but we will be tapering this as well. I have provided her with a paper referral - FENTANYL 12 MCG/HR TRANSDERMAL PATCH - OXYCODONE-ACETAMINOPHEN 5 MG-325 MG TABLET - CONSULT TO PAIN MGT ANESTHESIA 3. Muscle spasm - ICD9: 728.85, ICD10: M62.838 refill - CLONAZEPAM 0.5 MG TABLET 4. Delusional Disorder/Substance Abuse disorder Her daughter reports that she is in favor of her mother's meds being tapered and denies that she is less functional; she is due with her second in December. She is going to move in to an appt with her kid(s) and mother. She is very concerned about how her mother behaves and its effect on her children. She reports that her mother does not drink or drug and that there are no drugs or alcohol in the home. She has been caring for her mother since the age of 12. She is interested in pursuing guardianship. I told her that I would not be able to assess her as the situation is psychiatrically complex. Will refer to Violet Joseph our SW. Ryan Castano MD CNOV Observed: 10/31/2017 Status: COMPLETED Source: [place] 4:20 PM [facility] REPOSITORY Office Visit (FAMPBD) JARETTEDGARDO SCHWARZ ([id number]) 1965 F Date Time Provider Department 10/31/17 4:20 PM RYAN CASTANO FAMPBD During your visit today, we recorded the following information about you: Pulse Blood pressure Weight 91/minute 110/77 54.4 kg Ryan Castano MD 10/31/2017 8:22 PM Addendum Edgardo L Jarett is a 52 year old female who presents to followup accompanied by her daughter Lindsey, grandmary alice Arevalo and their friend Vandana, with whom they are living currently. At the last visit with me on 10/08/17 the AANDamp;P was as follows: 1. Other chronic pain - ICD9: 338.29, ICD10: G89.29 I am very concerned about providing her with controlled substances in light of her mental health disturbance and recent overdose although she denies that it was a suicidal gesture. I advised that I would need to taper her medications but that I would do so slowly to avoid discomfort. She is currently taking fentanyl 50 ?g per hour every 3 days. I'm going to reduce her to 37 ?g for 2 weeks and then to 25 ?g, and we'll see her back in one month. She did not object to this plan. - OXYCODONE-ACETAMINOPHEN 5 MG-325 MG TABLET - FENTANYL 12 MCG/HR TRANSDERMAL PATCH - FENTANYL 25 MCG/HR TRANSDERMAL PATCH ? 2. Muscle spasm - ICD9: 728.85, ICD10: M62.838 This is also a target for taper. Ideally, she would be seeing a psychiatrist. She has been resistant to that idea. - CLONAZEPAM 0.5 MG TABLET ? 3. Opioid Dependency - as above. Her daughter reports that Edgardo had a witnessed syncopal episode yesterday. It occurred about 5 PM. It was witnessed by her daughter. She was standing and had not eaten all day. She became dizzy and then lost consciousness. There were no shaking movements associated and she was fine immediately upon awakening. She was fine immediately upon awakening. There was no associated chest pain or shortness of breath. She has been eating poorly for a long time. She has had syncopal spells as well as seizures in the past. She seems fine today. There was a problem with our plan for tapering her fentanyl patches. Her insurance did not allow her to order picker the 12 ?g patches for 2 weeks after the prescription was written. She used 1.5 25 ?g patches for the first 2 weeks and subsequently is using 1 - 25 ?g and now two 12 ?g patches. She complains bitterly that her pain is worse and that she is not able to do things that she enjoys such as play with her grandson. She does not want to taper her fentanyl and she wants refills of Phenergan and dicyclomine. She blames pain physicians at [facility] for getting her addicted to the pain pills in the first place. She would be willing to see a pain physician elsewhere but does not think they will prescribe for her. She reports that I do not care for her and I do not understand her discomfort. 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 Anemia, Unspecified Other Pulmonary Embolism and Infarction Longterm (Current) Use of Anticoagulants Muscle Spasm Iron Defic Anemia NEC Other Chronic Pain Chemical Dependency (Hcc) Left Arm Weakness Chest Pain Depression Lethargy Seizure disorder (HCC) Djd (Degenerative Joint Disease), Cervical Emphysema of Lung ([facility]) Chronic Deep Vein Thrombosis of Left Femoral Vein ([facility]) Vitamin D Deficiency Psychosis Gerd (Gastroesophageal Reflux Disease) Asthma Psychiatric Disorder Tubulovillous Adenoma of Colon Nausea Delusional Disorder (Hcc) Current Outpatient Prescriptions on File Prior to Visit: dicyclomine (BENTYL) 20 mg tablet Take 1 tablet by mouth four times daily. promethazine (PHENERGAN) 25 mg tablet Take 1 tablet by mouth every 8 hours as needed. PRADAXA 150 mg cap take 1 capsule by mouth twice a day gabapentin (NEURONTIN) 300 mg capsule take 3 capsules by mouth three times a day potassium chloride 20 mEq TbER Take 1 tablet by mouth every Tuesday,Tuesday,Tuesday. (Patient taking differently: Take 1 tablet by mouth every Tuesday,Tuesday,Tuesday. Pt states that she takes it PRN ) venlafaxine XR (EFFEXOR XR) 150 mg 24 hr capsule Take 2 capsules by mouth once daily. omeprazole (PRILOSEC) 20 mg capsule Take 1 capsule by mouth once daily. fluticasone-salmeterol (ADVAIR DISKUS) 500-50 mcg/dose dsdv Inhale 1 Puff as instructed twice daily. RINSE AND GARGLE MOUTH WITH WATER AFTER EACH USE. potassium chloride ER (K-DUR, KLOR-CON) 20 mEq tablet Take 1 tablet by mouth once daily. spironolactone (ALDACTONE) 25 mg tablet Take 1 tablet by mouth once daily. (Patient taking differently: Take 25 mg by mouth once daily. Takes as needed) loperamide (IMODIUM) 2 mg cap(s) Take 1 capsule by mouth as needed for Diarrhea. Cetirizine (ZYRTEC) 10 mg cap Take by mouth once daily. ergocalciferol, vitamin D2, (DRISDOL) 50,000 unit capsule Take 1 capsule by mouth every Tuesday. Indications: VITAMIN D DEFICIENCY No current facility-administered medications on file prior to visit. Physical Examination: BP 110/77 (BP Site: Left Arm, BP Position: Sitting, BP Cuff Size: Regular Adult) Pulse 91 Wt 54.4 kg (120 lb) BMI 20.6 kg/m2 General appearance: Well appearing, alert, in no acute distress. Eye: No pallor or icterus Lung: Clear to percussion and auscultation Heart: HS's normal, RRR, no ectopy, no gallop or rubs, no murmur Neuro: Speech is normal and cranial nerves are grossly normal. She accesses the exam table without difficulty. Mental Status: Initially, as she is discussing her seizure episode with me, she is able to attend and give me a history fairly well despite the distractions of her grandson in the room. Once she realizes that I'm going to continue tapering her narcotics, she began yelling. She continued this into the waiting room. I told her that she could not behave like that in the waiting room as she was upsetting other patients. Finally, she left the office. ECG: normal ASSESSMENT/PLAN: 1. Syncope, unspecified syncope type - ICD9: 780.2, ICD10: R55 (primary diagnosis) I'm not certain what caused this syncopal episode however she appears to be well and had preceding dizziness and recovered completely immediately upon awakening. I'm not going to pursue this further beyond her ECG which was normal. - ECG COMPLETE W INTERPRETATION 2. Other chronic pain - ICD9: 338.29, ICD10: G89.29 I'm going to continue tapering her at this point she will reduce to 12 ?g of fentanyl daily for the next week or so and then she will be out of fentanyl. At this point I am refilling her oxycodone, but we will be tapering this as well. I have provided her with a paper referral - FENTANYL 12 MCG/HR TRANSDERMAL PATCH - OXYCODONE-ACETAMINOPHEN 5 MG-325 MG TABLET - CONSULT TO PAIN MGT ANESTHESIA 3. Muscle spasm - ICD9: 728.85, ICD10: M62.838 refill - CLONAZEPAM 0.5 MG TABLET 4. Delusional Disorder/Substance Abuse disorder Her daughter reports that she is in favor of her mother's meds being tapered and denies that she is less functional; she is due with her second in December. She is going to move in to an appt with her kid(s) and mother. She is very concerned about how her mother behaves and its effect on her children. She reports that her mother does not drink or drug and that there are no drugs or alcohol in the home. She has been caring for her mother since the age of 12. She is interested in pursuing guardianship. I told her that I would not be able to assess her as the situation is psychiatrically complex. Will refer to Violet conner [facility]. Ryan Castano MD Referring Provider: SELF [[id number]] Allergies As of Date: 10/31/2017 Noted Allergy Reaction CELLACEFATE 01/07/2006 7 - Swelling DEPAKOTE (DIVALPROEX SODIUM) 01/07/2006 8 - GI Upset DILANTIN (PHENYTOIN SODIUM EXTEND*06/03/2015 8 - GI Upset FISH CONTAINING PRODUCTS 05/13/2015 16 - Unknown PENICILLIN G 01/07/2006 8 - GI Upset Comments: tolerates zosyn . sdm. 03/2007 TOLERATES KEFLEX 3-31-11 SHRIMP 05/13/2015 16 - Unknown SULFA (SULFONAMIDE ANTIBIOTICS) 05/17/2007 8 - GI Upset Comments: Gastritis TOPAMAX (TOPIRAMATE) 05/21/2009 1 - Mental Status Change HALDOL (HALOPERIDOL) 02/03/2008 1 - Mental Status Change 3 - Cough 8 - GI Upset 9 - Itching Date Reviewed: 10/31/2017 Reviewed by: Yuliana Barriga MA - Fully Assessed Reason for Visit: Follow Up [171] Cmt: pain ,med refill Primary Visit Diagnosis:Syncope, unspecified syncope type [R55] Other Visit Diagnoses:Other chronic pain [G89.29] Muscle spasm [M62.838] Order(s):ECG COMPLETE W INTERPRETATION [ECG01] Order #: [id number] FUTURE fentaNYL (DURAGESIC) 12 mcg/hr [id number] 1 patch every 3 days with 25 for total of 37 for 2 weeks then stop. Earliest Fill Date: 11/02/17Disp: 3 PatchRfl: 0 clonazePAM (KLONOPIN) 0.5 mg tabletTake 1 tablet by mouth three times daily as needed for up to 30 days.Disp: 90 tabletRfl: 0 oxyCODONE-acetaminophen (PERCOCET) 5-325 mg tablet1 po q4h prn breakthrough pain (MAXIMUM 6 pills/day) Earliest Fill Date: 11/05/17Disp: 180 tabletRfl: 0 CONSULT TO PAIN MGT ANESTHESIA [[id number]] Order #: [id number]: 1 Prescriptions as of 10/31/2017 Sig: FENTANYL 12 MCG/HR TRANSDERMA* Use 1 patch every 3 days with* CLONAZEPAM 0.5 MG TABLET Take 1 tablet by mouth three * OXYCODONE-ACETAMINOPHEN 5 MG-* 1 po q4h prn breakthrough anthony* DICYCLOMINE 20 MG TABLET Take 1 tablet by mouth four t* X PROMETHAZINE 25 MG TABLET Take 1 tablet by mouth every * PRADAXA 150 MG CAPSULE take 1 capsule by mouth twice* X PRADAXA 150 MG CAPSULE take 1 capsule by mouth twice* GABAPENTIN 300 MG CAPSULE take 3 capsules by mouth thre* POTASSIUM CHLORIDE ER 20 MEQ * Take 1 tablet by mouth every * Patient taking differently: Take 1 tablet by mouth every * AZITHROMYCIN 250 MG TABLET Use as directed. OMEPRAZOLE 20 MG CAPSULE,VENESSA* Take 1 capsule by mouth once * FLUTICASONE 500 MCG-SALMETERO* Inhale 1 Puff as instructed t* X VENLAFAXINE ER 150 MG CAPSULE* Take 2 capsules by mouth once* POTASSIUM CHLORIDE ER 20 MEQ * Take 1 tablet by mouth once d* SPIRONOLACTONE 25 MG TABLET Take 1 tablet by mouth once d* Patient taking differently: Take 25 mg by mouth once maryuri* LOPERAMIDE 2 MG CAPSULE Take 1 capsule by mouth as ne* CETIRIZINE 10 MG CAPSULE Take by mouth once daily. ERGOCALCIFEROL (VITAMIN D2) 5* Take 1 capsule by mouth every* Problem List As Of Date 10/31/2017 Noted Resolved Cellulitis and abscess of leg, except foot [L03*INVALID FOR*02/25/2017 Methicillin susceptible Staphylococcus aureus i*INVALID FOR*02/25/2017 Pseudomonas infection in conditions classified *INVALID FOR*02/25/2017 Edema [R60.9] INVALID FOR*08/31/2017 Reflex sympathetic dystrophy of lower limb [G90*INVALID FOR* Psoas muscle abscess (HCC) [K68.12] INVALID FOR*02/25/2017 More... Candidiasis of unspecified site [B37.9] INVALID FOR*08/31/2017 More... Other streptococcus infection in conditions cla*INVALID FOR*02/25/2017 More... Bacteremia [R78.81] INVALID FOR*02/25/2017 Other lymphedema [I89.0] INVALID FOR*02/25/2017 Chronic pain syndrome [G89.4] INVALID FOR* Opioid Type Dependence, Continuous Abuse [F11.2*INVALID FOR* TOBACCO USE DISORDER [F17.200] Other convulsions [R56.9] INVALID FOR*02/25/2017 Priority: Moderate Sleep Hypovent Oth Dis [G47.36] INVALID FOR* Priority: Mild HYPOPOTASSEMIA [E87.6] INVALID FOR*02/28/2009 Priority: Moderate VENA CAVA THROMBOSIS [I82.220] INVALID FOR* Anemia, unspecified [D64.9] INVALID FOR*10/31/2017 Embolism and thrombosis (HCC) [I74.9] INVALID FOR*02/25/2017 Priority: B More... Other Pulmonary Embolism and Infarction [I26.99]INVALID FOR* Encounter for Long-Term (Current) Use of Antico*INVALID FOR* More... Left leg pain [M79.605] INVALID FOR*02/25/2017 Muscle spasm [M62.838] INVALID FOR* Leg pain [M79.606] INVALID FOR*02/25/2017 Depression, reactive [F32.9] 02/25/2017 More... Iron defic anemia NEC INVALID FOR*10/31/2017 Agitation [R45.1] INVALID FOR*02/25/2017 Other chronic pain [G89.29] INVALID FOR* Priority: F More... Altered mental status [R41.82] INVALID FOR*05/19/2016 Chemical dependency [F19.20] INVALID FOR* SUMMARY INVALID FOR*02/25/2017 Priority: A More... Left arm weakness [R29.898] INVALID FOR* Priority: B More... Chest pain [R07.9] INVALID FOR*10/31/2017 Priority: A More... Cellulitis [L03.90] INVALID FOR*02/25/2017 Priority: D More... Depression [F32.9] INVALID FOR* Priority: D More... Lethargy [R53.83] INVALID FOR* More... Seizure disorder (HCC) [G40.909] INVALID FOR* More... Low BP [I95.9] INVALID FOR*08/31/2017 More... DJD (degenerative joint disease), cervical [M50* Anxiety state, unspecified [F41.1] 04/22/2014 Pain [R52] INVALID FOR*08/31/2017 Priority: B More... Fever [R50.9] INVALID FOR*02/25/2017 Priority: C More... Delirium [R41.0] INVALID FOR*02/25/2017 Priority: A More... Hematemesis [K92.0] INVALID FOR*02/25/2017 Priority: C More... Emphysema of lung (HCC) [J43.9] INVALID FOR* Smoker [F17.200] INVALID FOR*02/25/2017 Chronic deep vein thrombosis of left femoral ve*INVALID FOR* Vitamin D deficiency [E55.9] INVALID FOR* Psychosis [F29] INVALID FOR* GERD (gastroesophageal reflux disease) [K21.9] INVALID FOR* Asthma [J45.909] INVALID FOR* Orthostatic hypotension [I95.1] INVALID FOR*08/31/2017 More... Psychiatric disorder [F99] INVALID FOR* More... 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 Syncope [R55] INVALID FOR*08/31/2017 Intentional fentanyl overdose ([facility]) [T40.4X2A] INVALID FOR*08/31/2017 Nausea [R11.0] INVALID FOR* Delusional disorder (HCC) [F22] INVALID FOR* More... Prescriptions ordered this encounter Disp Refills Start End FENTANYL 12 MCG/HR TRANSDERMAL PATCH 3 Pa* 0 11/02/2017 11/25/2017 Class: Print RX Sig: Use 1 patch every 3 days with 25 for total of 37 for 2 weeks then stop. Earliest Fill Date: 11/02/17 CLONAZEPAM 0.5 MG TABLET 90 t* 0 11/05/2017 12/05/2017 Class: Print RX Route: ORAL Sig: Take 1 tablet by mouth three times daily as needed for up to 30 days. OXYCODONE-ACETAMINOPHEN 5 MG-325 MG * 180 * 0 11/05/2017 11/30/2017 Class: Print RX Si po q4h prn breakthrough pain (MAXIMUM 6 pills/day) Earliest Fill Date: 11/05/17 Medications Discontinued During This Encounter fentaNYL (DURAGESIC) 25 mcg/hr 10 P* 0 2017 10/31/2017 Class: Print RX Route: TRANSDERMAL Sig: Apply 1 Patch as directed every 72 hours for 30 days. Use with 12 mcg for total of 37 mcg for 2 weeks then only 25 mcg daily for second two weeks. Disc: Reason for discontinue is not on file. fentaNYL (DURAGESIC) 12 mcg/hr pt72 5 Pa* 0 2017 10/31/2017 Class: Print RX Sig: Use 1 patch every 3 days with 25 for total of 37 for 2 weeks then stop. Disc: Reason for discontinue is not on file. clonazePAM (KLONOPIN) 0.5 mg tablet 90 t* 0 2017 10/31/2017 Class: Print RX Route: ORAL Sig: Take 1 tablet by mouth three times daily as needed for up to 30 days. Disc: Reason for discontinue is not on file. oxyCODONE-acetaminophen (PERCOCET) 5* 180 * 0 2017 10/31/2017 Class: Print RX Si po q4h prn breakthrough pain (MAXIMUM 6 pills/day) Disc: Reason for discontinue is not on file. Disposition: Return in about 1 month (around 12/01/2017) for follow Christine. Follow-up and Disposition History Recorded Encounter Status:Closed by RYAN CASTANO MD on 10/31/17 PROGRESS Observed: 2017 Status: COMPLETED Source: [place] 3:07 PM [facility] REPOSITORY HNO ID: [id number] Author: Ryan Castano Service: (none) Author Type: Physician Type: Progress Notes Filed: 10/08/2017 12:05 PM Note Text: Edgardo Denson is a 52 year old female who presents to followup accompanied by her daughter and grandson,Lindsey and Mickey. At the last visit with me on 09-02 the AANDP was as follows: 1. Screening for colorectal cancer - ICD9: V76.51, ICD10: Z12.11, Z12.12 (primary diagnosis) She defers colorectal cancer screening until her serious underlying conditions are diagnosed and treated. ? 2. Other chronic pain - ICD9: 338.29, ICD10: G89.29 My plan is to wean her further down on the fentanyl at a future visit. - OXYCODONE-ACETAMINOPHEN 5 MG-325 MG TABLET - FENTANYL 50 MCG/HR TRANSDERMAL PATCH ? 3. Muscle spasm - ICD9: 728.85, ICD10: M62.838 Refill - CLONAZEPAM 0.5 MG TABLET ? 4. Encounter for gynecological examination without abnormal finding - ICD9: V72.31, ICD10: Z01.419 She is to see a DIRECTOR OF GLOBAL SALES for pelvic exam. ? 5. Breast cancer screening - ICD9: V76.10, ICD10: Z12.31 - DANA SCREENING ? 6. Visit for screening mammogram - ICD9: V76.12, ICD10: Z12.31 - DANA SCREENING She subsequently was evaluated in the emergency room 09-05. Patient by EMS for psych evaluation. She called and was very upset over not getting her narcotics filled today. She told her daughter that she took a handful of pills to calm herself down. She states she took 4 of her Effexor pills to calm down. D/W daughter on cell [phone] who states she believes that her mom was trying to harm herself and has taken handfuls of her klonopin recently as well She is very c/w her mom's safety as she did this while babysitting her 1.5 year old grand daughter Notes document transfer to psychiatry. She reports that she was sent from the emergency Department to [place] [facility] facility for 2 days. No additional medications were recommended and she was released. She denies that she has or had any intention to harm herself. The emergency room note documents that her daughter had accused her of taking handfuls of pills in the past while her grandson was in her care; they both deny this today. She remains very concerned about her hair and her shrinking head. She requested refills for her controlled substances on 09-30 which I refused because I did not know what had happened subsequent to her emergency room visit and because of the overdose. She presented at the office the next morning and when she found out there were no prescriptions for her, created a disturbance. 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 Anemia, Unspecified Other Pulmonary Embolism and Infarction Longterm (Current) Use of Anticoagulants Muscle Spasm Iron Defic Anemia NEC Other Chronic Pain Chemical Dependency ([facility]) Left Arm Weakness Chest Pain Depression Lethargy Seizure disorder (HCC) Djd (Degenerative Joint Disease), Cervical Emphysema of Lung ([facility]) Chronic Deep Vein Thrombosis of Left Femoral Vein (Hcc) Vitamin D Deficiency Psychosis Gerd (Gastroesophageal Reflux Disease) Asthma Psychiatric Disorder Tubulovillous Adenoma of Colon Nausea Delusional Disorder ([facility]) Current Outpatient Prescriptions on File Prior to Visit: dicyclomine (BENTYL) 20 mg tablet Take 1 tablet by mouth four times daily. PRADAXA 150 mg cap take 1 capsule by mouth twice a day promethazine (PHENERGAN) 25 mg tablet Take 1 tablet by mouth every 8 hours as needed. dabigatran etexilate (PRADAXA) 150 mg cap Take 1 capsule by mouth twice daily. gabapentin (NEURONTIN) 300 mg capsule take 3 capsules by mouth three times a day oxyCODONE-acetaminophen (PERCOCET) 5-325 mg tablet 1 po q4h prn breakthrough pain (MAXIMUM 6 pills/day)Earliest Fill Date: 08/31/17 fentaNYL (DURAGESIC) 50 mcg/hr Apply 1 Patch as directed every 72 hours for 30 days. clonazePAM (KLONOPIN) 0.5 mg tablet Take 1 tablet by mouth three times daily as needed potassium chloride 20 mEq TbER Take 1 tablet by mouth every Tuesday,Tuesday,Tuesday. Pt states that she takes it PRN venlafaxine XR (EFFEXOR XR) 150 mg 24 hr capsule Take 2 capsules by mouth once daily. omeprazole (PRILOSEC) 20 mg capsule Take 1 capsule by mouth once daily. fluticasone-salmeterol (ADVAIR DISKUS) 500-50 mcg/dose dsdv Inhale 1 Puff as instructed twice daily. RINSE AND GARGLE MOUTH WITH WATER AFTER EACH USE. spironolactone (ALDACTONE) 25 mg tablet Take 1 tablet by mouth once daily. (Patient taking differently: Take 25 mg by mouth once daily. Takes as needed ) loperamide (IMODIUM) 2 mg cap(s) Take 1 capsule by mouth as needed for Diarrhea. Cetirizine (ZYRTEC) 10 mg cap Take by mouth once daily. ergocalciferol, vitamin D2, (DRISDOL) 50,000 unit capsule Take 1 capsule by mouth every Tuesday. Indications: VITAMIN D DEFICIENCY No current facility-administered medications on file prior to visit. Physical Examination: BP 128/72 Pulse 84 Temp 37.4 ?C (99.3 ?F) (Oral) Wt 54.4 kg (120 lb) LMP 09/05/2017 (Within Days) BMI 20.6 kg/m2 General appearance: Thin, alert, in no acute distress. Skin: She has only small short hairs present over a significant part of her skull. Mental Status: She is quiet and unusually subdued. She is slightly tearful. She was able to attend and have a reasonable conversation about her medications. ASSESSMENT/PLAN: 1. Other chronic pain - ICD9: 338.29, ICD10: G89.29 I am very concerned about providing her with controlled substances in light of her mental health disturbance and recent overdose although she denies that it was a suicidal gesture. I advised that I would need to taper her medications but that I would do so slowly to avoid discomfort. She is currently taking fentanyl 50 ?g per hour every 3 days. I'm going to reduce her to 37 ?g for 2 weeks and then to 25 ?g, and we'll see her back in one month. She did not object to this plan. - OXYCODONE-ACETAMINOPHEN 5 MG-325 MG TABLET - FENTANYL 12 MCG/HR TRANSDERMAL PATCH - FENTANYL 25 MCG/HR TRANSDERMAL PATCH 2. Muscle spasm - ICD9: 728.85, ICD10: M62.838 This is also a target for taper. Ideally, she would be seeing a psychiatrist. She has been resistant to that idea. - CLONAZEPAM 0.5 MG TABLET 3. Opioid Dependency - as above. Ryan Castano MD ED NOTE Observed: 09/06/2017 Status: COMPLETED Source: [place] 1:27 PM [facility] REPOSITORY HNO ID: [id number] Author: Holley Alcantar) ABIODUN Juarez Service: (none) Author Type: Registered Nurse Type: ED Notes Filed: 09/06/2017 1:28 PM Note Text: Pt yelling that she did not get her Klonopin, phenergan, Percocet or Pradaxa. Dr. Parker was in the room and spoke to pt and stated she was going now with transport. ED NOTE Observed: 09/06/2017 Status: COMPLETED Source: [place] 12:33 PM [facility] [place] REPOSITORY HNO ID: [id number] Author: Holley Alcantar) ABIODUN Juarez Service: (none) Author Type: Registered Nurse Type: ED Notes Filed: 09/06/2017 12:34 PM Note Text: Asked pt concerning if she wanted her daughter notified. Pt getting very upset and wants to have a psychiatrist talk to her now. Pt yelling. Dr. Parker aware. ED NOTE Observed: 09/06/2017 Status: COMPLETED Source: [place] 12:04 PM [facility] REPOSITORY HNO ID: [id number] Author: Holley OliverosRn) ABIODUN Juarez Service: (none) Author Type: Registered Nurse Type: ED Notes Filed: 09/06/2017 12:05 PM Note Text: Report given to Akilah and Gabapenin given per order. ED NOTE Observed: 09/06/2017 Status: COMPLETED Source: [place] 11:30 AM [facility] REPOSITORY HNO ID: [id number] Author: Holley OliverosRn) ABIODUN Juarez Service: (none) Author Type: Registered Nurse Type: ED Notes Filed: 09/06/2017 11:31 AM Note Text: Spoke to Jaja from intake requesting pink slip to be faxed. ED NOTE Observed: 09/06/2017 Status: COMPLETED Source: [place] 11:15 AM [facility] HNO ID: [id number] Author: Holley OliverosRn) ABIODUN Juarez Service: (none) Author Type: Registered Nurse Type: ED Notes Filed: 09/06/2017 11:27 AM Note Text: Assumed care. Pt stated she doesn't want to go to psych facility. She stated she doesn't want to harm herself. She stated her daughter needs the help. Pt stated she needs her medications for seizures. ED NOTE Observed: 09/06/2017 Status: COMPLETED Source: [place] 10:25 AM [facility] HNO ID: [id number] Author: Rossana OliverosRn) Raymond RN Service: (none) Author Type: Registered Nurse Type: ED Notes Filed: 09/06/2017 10:30 AM Note Text: Dr. Parker at bedside to speak with patient. Patient awake and verbalizing, has been ambulating in room. Patient tearful but cooperative. ED NOTE Observed: 09/06/2017 Status: COMPLETED Source: [place] 10:10 AM [facility] REPOSITORY HNO ID: [id number] Author: Chantel OliverosPcnaNAIMA Gutierrez Service: (none) Author Type: Patient Care Employee Representative Type: ED Notes Filed: 09/06/2017 10:10 AM Note Text: PT walked around room, brushed her teeth. PT asking to walk to the . Dr. Parker aware ED NOTE Observed: 09/06/2017 Status: COMPLETED Source: [place] 8:43 AM [facility] REPOSITORY HNO ID: [id number] Author: Rossana OliverosRn) Raymond, RN Service: (none) Author Type: Registered Nurse Type: ED Notes Filed: 09/06/2017 9:42 AM Note Text: Intake personnel called requesting documentation and update on patient's condition once awaken, per Intake [place]. Patient awakened A AND O x3. Patient offered breakfast but declined. Patient reports does not want to harm herself or anyone else, reports that her daughter is lying about her wanting to harm herself. Patient asked why she took extra effexor last night, patient reports because she missed some doses. Patient aware [facility]. Patient asked about falls, and what reasons she is attributing to falls, patient reports she has had strokes in past, when asked if she has any deficits from stroke, she reports that she does not, reports sometimes she gets dizzy. Patient taking p.o fluids. Requesting to speak with ED physician. Patient remains calm and cooperative. ED PROV NOTE Observed: 09/06/2017 Status: COMPLETED Source: [place] 7:44 AM [facility] REPOSITORY HNO ID: [id number] Author: Pricilla Cornell MD Service: Emergency Medicine Author Type: Physician Type: ED Provider Notes Filed: 09/06/2017 7:45 AM Note Text: While patient boarding in ED, I reviewed her chart and VS. She is arrousable to voice. No new complaints. Very sleepy after medications. She is awoken in the morning and tray will be ordered. Patient understands plan to discuss with intake once more awake. MD Pricilla Zheng MD 09/06/17 0745 ED NOTE Observed: 09/06/2017 Status: COMPLETED Source: [place] 7:15 AM [facility] REPOSITORY HNO ID: [id number] Author: Rossana OliverosRn) Raymond, RN Service: (none) Author Type: Registered Nurse Type: ED Notes Filed: 09/06/2017 8:21 AM Note Text: Assumed care of patient at this time. Patient appears to be sleeping, respirations even and unlabored. Patient on monitor. Suicide precautions remain in place. Sitter at bedside. ED NOTE Observed: 09/06/2017 Status: COMPLETED Source: [place] 6:11 AM [facility] REPOSITORY HNO ID: [id number] Author: Samantha OliverosRnJessica Allen RN Service: (none) Author Type: Registered Nurse Type: ED Notes Filed: 09/06/2017 6:12 AM Note Text: Pt remains asleep but wakes when name called. Pt aware of where she is at and the year. Pt falls back asleep. ED NOTE Observed: 09/06/2017 Status: COMPLETED Source: [place] 5:48 AM [facility] REPOSITORY HNO ID: [id number] Author: NAIMA Vaughan (Pcna) Service: (none) Author Type: Patient Care Employee Representative Type: ED Notes Filed: 09/06/2017 5:51 AM Note Text: Pt continues to sleep; but awake for vitals ED NOTE Observed: 09/06/2017 Status: COMPLETED Source: [place] 5:02 AM [facility] REPOSITORY HNO ID: [id number] Author: NAIMA Vaughan (Pcna) Service: (none) Author Type: Patient Care Employee Representative Type: ED Notes Filed: 09/06/2017 5:05 AM Note Text: Sitter called out to pt-pt responded ED NOTE Observed: 09/06/2017 Status: COMPLETED Source: [place] 4:17 AM [facility] REPOSITORY HNO ID: [id number] Author: NAIMA Vaughan (Pcna) Service: (none) Author Type: Patient Care Employee Representative Type: ED Notes Filed: 09/06/2017 4:20 AM Note Text: Sitter remains at bedside; door lock; blankets provided ED NOTE Observed: 09/06/2017 Status: COMPLETED Source: [place] 4:15 AM [facility] REPOSITORY HNO ID: [id number] Author: NAIMA Vaughan (Pcna) Service: (none) Author Type: Patient Care Employee Representative Type: ED Notes Filed: 09/06/2017 4:17 AM Note Text: Pt is breathing normally; being able to turn to side to side ED NOTE Observed: 09/06/2017 Status: COMPLETED Source: [place] 4:10 AM [facility] REPOSITORY HNO ID: [id number] Author: Samantha Allen RN Service: (none) Author Type: Registered Nurse Type: ED Notes Filed: 09/06/2017 4:20 AM Note Text: Cece from [facility] called to speak with patient. Patient will arouse when name called and open eyes but declines to speak with intake due to fatigue. Cece from [facility] made aware that pt declined is to speak on the phone at this time due to fatigue. Dr Cornell made aware of this. ED NOTE Observed: 09/06/2017 Status: COMPLETED Source: [place] 3:37 AM [facility] REPOSITORY HNO ID: [id number] Author: NAIMA Vaughan (Pcna) Service: (none) Author Type: Patient Care Employee Representative Type: ED Notes Filed: 09/06/2017 3:37 AM Note Text: Pt awaken to taken some medication ED NOTE Observed: 09/06/2017 Status: COMPLETED Source: [place] 2:20 AM [facility] REPOSITORY HNO ID: [id number] Author: Samantha OliverosRn) ABIODUN Allen Service: (none) Author Type: Registered Nurse Type: ED Notes Filed: 09/06/2017 2:27 AM Note Text: Cece from [facility] called to interview patient over the telephone. Pt sleeping at this time from prior medications given for agitation. Pt wakes, but is unable to stay awake to speak on the phone and carry on a conversation at this time due to previous medication given for agitation. When pt wakes and is able to have a conversation will call Cece back at [facility] [phone]. ED NOTE Observed: 09/06/2017 Status: COMPLETED Source: [place] 2:15 AM [facility] REPOSITORY HNO ID: [id number] Author: Samantha OliverosRn) ABIODUN Allen Service: (none) Author Type: Registered Nurse Type: ED Notes Filed: 09/06/2017 2:16 AM Note Text: Daughter called for update on her mother's status. Daughter made aware that pt is waiting on a [facility] bed. ED NOTE Observed: 09/06/2017 Status: COMPLETED Source: [place] 12:26 AM [facility] REPOSITORY HNO ID: [id number] Author: Samantha OliverosRn) ABIODUN Allen Service: (none) Author Type: Registered Nurse Type: ED Notes Filed: 09/06/2017 12:26 AM Note Text: Pt straight cath for urine. Urine collected and sent to lab. URINALYSIS WITH Collected: 09/06/2017 Status: F Source: [facility] 12:26 AM [facility] OTHER CAMPUS REPOSITORY TYPE CODE TESTS RESULT OUT OF RANGE REFERENCE UNITS LAB UCOL Yellow Color Abnormal Straw Alert LAB [facility] Clear Clarity Clear LAB UGLUC Negative mg/dL Glucose, Urine Negative LAB UBIL Negative Bilirubin, Urine Negative LAB UKET Negative Ketones, Urine Negative LAB [facility] 1.003-1.030 Specific [place], Ur 1.015 LAB UHGB Negative Hemoglobin/Blood, Negative Ur LAB UPH 5.0-9.0 pH 5.5 LAB UPROT Negative mg/dL Protein, Urine Negative LAB UUROB Urobilinogen Normal Result Comment: Reference Interval: <2.0 mg/dL LAB UNITR Negative Nitrites Negative LAB ULKEST Negative Leukest Negative LAB UWBC 0-5 /HPF WBC 0-5 LAB URBC 0-3 /HPF RBC 0-3 LAB UOTHER /HPF Urine, SEE Other COMMENT FOR EAST USE ONLY Result Comment: 1+ Mucous TOXICOLOGY SCREEN,UR Collected: 09/06/2017 Status: F Source: [place] 12:26 AM [facility] OTHER [facility]AMP[facility] REPOSITORY TYPE CODE TESTS RESULT OUT OF REFERENCE UNITS RANGE LAB UPCP2 Negative Negative Phencyclidin e, Urine Result Comment: Cutoff threshold at 25 ng/mL. LAB UBENZ2 Negative Benzodiazepines, Ur Abnormal Preliminary Alert positive. Result Comment: Cutoff threshold at 200 ng/mL. LAB UCOC2 Negative Cocaine, Negative Urine Result Comment: Cutoff threshold at 300 ng/mL. LAB UAMPH2 Negative Amphetamines, Urine Negative Result Comment: Cutoff threshold at 1000 ng/mL. LAB UTHC2 Negative Cannabinoids, Urine Negative Result Comment: Cutoff threshold at 50 ng/mL. LAB UOPI2 Negative Opiates, Negative Urine Result Comment: Cutoff threshold at 300 ng/mL. LAB UBARB2 Negative Barbiturates, Urine Negative Result Comment: Cutoff threshold at 200 ng/mL. LAB UETOH <11 mg/dL <11 Ethanol, Urine LAB UOXYC Negative Abnormal Oxycodone, Preliminary Alert Urine positive. Result Comment: Cutoff threshold at 100 ng/mL. Comment: Immunoassay screen only. Cross reactivity with other substances can occur with immunoassay screening. Detection of any drug(s) in this urine toxicology panel is presumptive only. These tests are for med ica purposes only and should not be used for compliance monitoring, legal, or forensic use. In clinical settings, confirmatory testing is at the practitioner's discretion [1]. If clinically indicated, confirmation by high specificity, quantitative methodology may be requested on the same speci men through Client Services ([phone]) if contacted within 48 hours of initial tsting. [1]Substance Abuse and Mental Health Services Administration (2012). Clinical Drug Testing in Primary Care Technical Assistance Publication Series 32. Department of Health and Human Services, [place], p.10. ED NOTE Observed: 09/06/2017 Status: COMPLETED Source: [place] 12:01 AM [facility] REPOSITORY HNO ID: [id number] Author: Samantha OliverosRn) ABIODUN Allen Service: (none) Author Type: Registered Nurse Type: ED Notes Filed: 09/06/2017 12:12 AM Note Text: Pt crying and yelling out loud. Pt yelling send the police to my house because my daughter is going to steal all my money DR Frank ordered for pt to be medicated at this time. ED NOTE Observed: 09/05/2017 Status: COMPLETED Source: [place] 11:55 PM [facility] REPOSITORY HNO ID: [id number] Author: Samantha OliverosRn) ABIODUN Allen Service: (none) Author Type: Registered Nurse Type: ED Notes Filed: 09/05/2017 11:55 PM Note Text: Dr Frank gave permission for pt to take her own Pradaxa. This nurse gave pt 150mg PO Pradaxa. ED NOTE Observed: 09/05/2017 Status: COMPLETED Source: [place] 11:41 PM [facility] REPOSITORY HNO ID: [id number] Author: NAIMA Vaughan (Pcna) Service: (none) Author Type: Patient Care Employee Representative Type: ED Notes Filed: 09/05/2017 11:45 PM Note Text: Pt asking to call the police so they can go and get her money; PROTIME Collected: 09/05/2017 Status: F Source: [place] 11:06 PM [facility] REPOSITORY TYPE CODE TESTS RESULT OUT OF RANGE REFERENCE UNITS LAB PSEC 9.7-13.0 sec PT Sec 10.2 LAB INR 0.9-1.3 PT INR 1.0 Result Comment: Vitamin K Antagonist (VKA) Therapeutic Range: INR 2 to 3 (Target INR of 2.5) Note: For patients treated with VKA drugs, such as warfarin, the [employer] 2012 Guideline recommends a therapeutic INR range of 2 to 3 (target INR of 2.5). This recommendation includes high-risk patients with antiphospholipid syndrome with previous arterial or venous thromboembolism, current-generation mechanical or bioprosthetic aortic heart valve replacement. Note: Patients with mechanical aortic valve replacement and additional risk factors for thromboembolic events (atrial fibrillation, previous thromboembolism, LV dysfunction, hypercoagulable conditions) or an older generation mechanical AVR (i.e., ball in-Cage) or any mechanical MVR should have a INR therapeutic range of 2.5 to 3.5 (target INR of 3). Ulysses GH, et al. Chest 2012, 141:7S-47S Adam RA, et al. [facility] 2017, 70: 252-289 ACETAMINOPHEN Collected: 09/05/2017 Status: F Source: [place] 11:06 PM [facility] OTHER CAMPUS REPOSITORY TYPE CODE TESTS RESULT OUT OF REFERENCE UNITS RANGE LAB ACETM 10-20 ug/mL Acetaminophen <15 Result Comment: Reference ranges and high/low indicator flags are provided as general guidelines only. The treating physician must determine appropriate target levels/dosing based on the specific clinical situation. SALICYLATE Collected: 09/05/2017 Status: F Source: [place] 11:06 PM [facility] REPOSITORY TYPE CODE TESTS RESULT OUT OF REFERENCE UNITS RANGE LAB SALI 2-29 mg/dL Low Salicylate <1 Result Comment: Reference ranges and high/low indicator flags are provided as general guidelines only. The treating physician must determine appropriate target levels/dosing based on the specific clinical situation. COMP METABOLIC PANEL Collected: 09/05/2017 Status: F Source: [place] 11:06 PM [facility] REPOSITORY TYPE CODE TESTS RESULT OUT OF REFERENCE UNITS RANGE LAB TP 6.3-8.0 g/dL Protein, Total 7.9 LAB ALB 3.9-4.9 g/dL Albumin 4.2 LAB CA 8.6-10.0 mg/dL Calcium, Total 9.1 LAB TBIL 0.2-1.3 mg/dL Bilirubin, Low Total <0.2 LAB ALKP 36-108 U/L Alkaline High Phosphatase 115 LAB AST 13-35 U/L AST 17 LAB GLU 74-99 mg/dL Glucose 84 LAB BUN 7-21 mg/dL BUN 11 LAB CRET 0.58-0.96 mg/dL Creatinine 0.63 LAB NA 136-144 mmol/L Sodium 143 LAB K 3.7-5.1 mmol/L Potassium Low 3.0 LAB CL 97-105 mmol/L Chloride 103 LAB CO2 22-33 mmol/L CO2 27 LAB AGAP 9-18 mmol/L Anion Gap 13 LAB ALT 7-38 U/L ALT 12 LAB GFRAA eGFR- >60 Amer. LAB GFRNAA . eGFR-All Other Races >60 Result Comment: eGFR (Estimated GFR) Units of measure: mL/min/1.73 meters squared eGFR is derived from the reexpressed MDRD Study equation using the following parameters: serum creatinine, age, gender and race. The creatinine assay has been calibrated to be traceable to IDMS. An eGFR <60 mL/min/1.73m2 for >3 months is consistent with chronic kidney disease. Refer to KDOQI guidelines for clinical interpretation. In patients with unstable renal function, e.g. those with acute kidney injury, the eGFR may not accurately reflect actual GFR. CBC AND DIFFERENTIAL Collected: 09/05/2017 Status: F Source: [place] 11:06 PM [facility] OTHER [facility] REPOSITORY TYPE CODE TESTS RESULT OUT OF REFERENCE UNITS RANGE LAB WBC 3.70-11.00 k/uL WBC 9.69 LAB RBC 3.90-5.20 m/uL RBC 4.80 LAB HGB 11.5-15.5 g/dL Hemoglobin 14.9 LAB HCT 36.0-46.0 % Hematocrit 44.0 LAB MCV 80.0-100.0 fL MCV 91.7 LAB MCH 26.0-34.0 pG MCH 31.0 LAB MCHC 30.5-36.0 g/dL MCHC 33.9 LAB RDWCV 11.5-15.0 % RDW-CV 12.9 LAB PLTCT 150-400 k/uL Platelet Count 261 LAB MPV 9.0-12.7 fL MPV 10.2 LAB ANEUT % Neut% 63.0 LAB AANEUT 1.45-7.50 k/uL Abs Neut 6.10 LAB ALYMP % Lymph% 28.0 LAB AALYMP 1.00-4.00 k/uL Abs Lymph 2.71 LAB AMONO % [place]% 4.0 LAB AAMONO <0.87 k/uL Abs [place] 0.39 LAB AEOS % Eosin% 2.0 LAB AAEOS <0.46 k/uL Abs Eosin 0.19 LAB ABASO % Baso% 1.0 LAB AABASO <0.11 k/uL Abs Baso 0.10 LAB ABIMMG k/uL ANC(includeSEG+B 6.10 AND) LAB ARELYM % Realym% 2.0 LAB RBCMOR Red Cell Morph SEE COMMENT Result Comment: Unremarkable LAB PLTEST Platelet Platelet Estimate estimate adequate LAB DTYP DTYPE Manual Diff ETHANOL Collected: 09/05/2017 Status: F Source: [place] 11:06 PM [facility] OTHER [facility] REPOSITORY TYPE CODE TESTS RESULT OUT OF REFERENCE UNITS RANGE LAB ALCO <11 mg/dL Ethanol <11 CK, TOTAL AND CKMB Collected: 09/05/2017 Status: F Source: [place] 11:06 PM [facility] REPOSITORY TYPE CODE TESTS RESULT OUT OF REFERENCE UNITS RANGE LAB CK 42-196 U/L 80 CK LAB MB 0-8.8 ng/mL MB 3.2 LAB CKMBRI 0.0-4.0 % CK CK MB MB % not % reported with CK <100 U/L. TSH Collected: 09/05/2017 Status: F Source: [place] 11:06 PM [facility] REPOSITORY TYPE CODE TESTS RESULT OUT OF RANGE REFERENCE UNITS LAB TSH 0.400-5.500 uU/mL TSH 5.280 Result Comment: If the patient is , TSH reference range varies by gestational period: First Trimester 0.100-2.500 uU/mL Second Trimester 0.200-3.000 uU/mL Third Trimester 0.300-3.000 uU/mL References: 1. Joshi L, Vitaly M, Aleks EK, et al. Management of Thyroid Dysfunction during and : An Endocrine Society Clinical Practice Guideline. J Clin Endocrinol Metab, 2012:97:9802-1432. 2. Ulysses DS. Overview of thyroid disease in . UpToDate. 2016. Accessed on January 30, 2016. ED NOTE Observed: 09/05/2017 Status: COMPLETED Source: [place] 11:00 PM [facility] OTHER [facility] REPOSITORY HNO ID: [id number] Author: Samantha OliverosRn) ABIODUN Allen Service: (none) Author Type: Registered Nurse Type: ED Notes Filed: 09/05/2017 11:00 PM Note Text: Labs drawn and sent. ED PROV NOTE Observed: 09/05/2017 Status: COMPLETED Source: [place] 10:56 PM [facility] OTHER [facility]AMP[facility] REPOSITORY [facility] ID: [id number] Author: Eulalia Frank DO Service: (none) Author Type: Physician Type: ED Provider Notes Filed: 09/06/2017 1:24 AM Note Text: ED Provider Note Patient Name: Edgardo Denson SERVICE DATE: 09/05/17 History Patient presents with: Overdose Patient is a 51 year old female presenting with mental health disorder. History provided by: Patient Psychiatric Problem Presenting symptoms: depression and suicidal threats Presenting symptoms: no aggressive behavior, no agitation, no bizarre behavior, no delusions, no disorganized speech, no disorganized thought process, no hallucinations, no homicidal ideas, no paranoid behavior, no self-mutilation, no suicidal thoughts and no suicide attempt Degree of incapacity (severity): Mild Onset quality: Sudden Chronicity: Recurrent Context: medication Context: not alcohol use, not drug abuse, not noncompliant, not recent medication change and not stressful life event Treatment compliance: Some of the time Relieved by: Nothing Worsened by: Nothing Associated symptoms: no abdominal pain, no anhedonia, no anxiety, no appetite change, no chest pain, no decreased need for sleep, not distractible, no euphoric mood, no fatigue, no feelings of worthlessness, no headaches, no hypersomnia, no hyperventilation, no insomnia, no irritability, no poor judgment, no school problems and no weight change Risk factors: hx of mental illness Risk factors: no hx of suicide attempts Patient by EMS for psych evaluation. She called and was very upset over not getting her narcotics filled today. She told her daughter that she took a handful of pills to calm herself down. She states she took 4 of her Effexor pills to calm down. PAST MEDICAL HISTORY Diagnosis Date - Asthma - Cellulitis and abscess of leg, except foot 03/01/2007 Orig Leg issue 1996 - Chronic pain syndrome 05/27/2008 Post-herpetic Neuralgia - Depression, reactive - DJD (degenerative joint disease), cervical - Esophageal reflux Hemorrhagic gastritis / hx GI - Headache - Muscle spasm BZD - Other convulsions 02/25/2009 - PE (pulmonary embolism) 07/2006 - PMH - PAST MEDICAL HISTORY OF 07/19/2005 h/o right leg DVT, PE, s/p IVC filter - PMH - PAST MEDICAL HISTORY OF 2005 h/o Osteomyelitis infection - Sleep disturbance, unspecified sleep study 12/21 didn't show sleep apnea but some central apneas - Syncope Dr. 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 PAST SURGICAL HISTORY Procedure Laterality Date - DELIVERY ONLY , low transverse - COLONOSCOP W/ OR W/O [facility] SPEC Colonoscopy - EGD W/O OR W/BRUSH/WASH EGD - LAPAROSCOPIC CHOLEYCYSTECTOMY Cholecystectomy, lap - PAST SURGICAL HISTORY OF 07/20 s/p IVC filter by Dr. Mcpherson - PAST SURGICAL HISTORY OF leg debridements for MRSA FAMILY HISTORY Problem Relation Age of Onset - Ischemic Heart Disease Mother - Stroke Mother - Diabetes Father - renal cell cancer [OTHER] Father Testical cancer, primary renal cancer - testicular cancer [OTHER] Father - Lipids Sister - Lipids Brother - Colon Cancer Paternal Grandmother - stomach cancer [OTHER] Paternal Grandmother - Breast Cancer No Family History Social History Social History Main Topics - Smoking status: Current Every Day Smoker Packs/day: 0.50 Years: 12.00 Types: Cigarettes - Smokeless tobacco: Never Used Comment: Currently smokes two cigarettes a day - Alcohol use No - Drug use: No - Sexual activity: Not Currently ALLERGIES Allergen Reactions - Cellacefate Swelling - Depakote [Divalproe* GI Upset - Dilantin [Phenytoin* GI Upset - Fish Containing Pro* Unknown - Penicillin G GI Upset tolerates zosyn . sdm. 03/2007 TOLERATES KEFLEX 11-12-10 - Shrimp Unknown - Sulfa (Sulfonamide * GI Upset Gastritis - Topamax [Topiramate] Mental Status Change - Haldol [Haloperidol] Mental Status Change, Cough, GI Upset, Itching Review of Systems Constitutional: Negative for appetite change, chills, fatigue, fever and irritability. Eyes: Negative for visual disturbance. Respiratory: Negative for chest tightness and shortness of breath. Cardiovascular: Negative for chest pain. Gastrointestinal: Negative for abdominal pain, diarrhea and vomiting. Genitourinary: Negative for difficulty urinating. Musculoskeletal: Negative for myalgias and neck pain. Skin: Negative for rash. Neurological: Negative for weakness and headaches. Psychiatric/Behavioral: Negative for agitation, hallucinations, homicidal ideas, paranoia, self-injury and suicidal ideas. The patient is not nervous/anxious and does not have insomnia. Physical Exam BP 148/73 Pulse 102 Temp (Src) 97.7 (Oral) Resp 18 Ht 5' 4 (1.63m) Wt 115 lb (52.2kg) SpO2 95% BMI 19.73 kg/(m2). Physical Exam Constitutional: She is oriented to person, place, and time. She appears well-developed and well-nourished. HENT: Head: Normocephalic and atraumatic. Eyes: No scleral icterus. Neck: Normal range of motion. Neck supple. Cardiovascular: Normal rate and regular rhythm. Exam reveals no friction rub. No murmur heard. Pulmonary/Chest: Effort normal and breath sounds normal. No respiratory distress. Abdominal: Soft. Bowel sounds are normal. She exhibits no distension. Musculoskeletal: Normal range of motion. Neurological: She is alert and oriented to person, place, and time. Skin: Skin is warm and dry. No rash noted. Psychiatric: Her behavior is normal. Judgment normal. Her mood appears anxious. Her speech is rapid and/or pressured. Thought content is paranoid. Cognition and memory are normal. She does not exhibit a depressed mood. She expresses no homicidal and no suicidal ideation. She expresses no suicidal plans and no homicidal plans. Nursing note and vitals reviewed. Diagnostic Testing ED Labs Ordered and Reviewed - No data to display Procedures Medical Decision Making / ED Course ED Course Eulalia Frank's Documentation Comment Time ED EKG INTERPRETATION: Normal sinus rhythm at 90 beats per minute Normal axis Normal intervals Normal ST-T segments Interpretation by ED physician 09/05 2329 D/W daughter on cell [phone] who states she believes that her mom was trying to harm herself and has taken handfuls of her klonopin recently as well She is very c/w her mom's safety as she did this while babysitting her 1.5 year old grand daughter 11:37 PM Patient is becoming much more agitated and yelling She is refusing to stay in bed She will be medicated Mental Capacity Note I have evaluated this patient and based on my examination determined that Patient Edgardo Denson has a primary diagnosis of Psychosis and suicidal threat. At present, patient lacks sufficient decision making ability to make an informed decision to leave the hospital. Therefore, Patient Edgardo Denson should not be allowed to leave the hospital against medical advice. The patient will be stabilized medically until a clinical point is reached where the patient can then be re-evaluated for further need of inpatient care or discharge. An attempt will be made to identify an appropriate surrogate decision maker to be an active participant in this patients care The LIP should follow the [facility] patient management guidance referenced below (can be pasted into browser): 1. Against Medical Advice ( AMA ) Policy [email or web address] 2. Against Medical Advice ( AMA ) Attachment A- Evaluation of Capacity [email or web address] 3. Against Medical Advice ( AMA ) Attachment B- Release of Responsibility [email or web address] 4. Patients Without Surrogate Standard Operating Procedure [email or web address] Eulalia Frank DO 1:24 AM PATIENT IS MEDICALLY CLEARED FOR TRANSFER Encounter Diagnosis ICD-10-CM 1. Suicidal risk R45.89 2. Medication overdose, undetermined intent, initial encounter T50.904A Plan The Patient was TRANSFERRED to: PSYCH Condition at time of disposition: stable SIGNATURE: DO Eulalia Julien DO 09/06/17 0124 ED NOTE Observed: 09/05/2017 Status: COMPLETED Source: [place] 10:45 PM [facility] OTHER [facility]AMP[facility] REPOSITORY O ID: [id number] Author: Samantha (Rn) ABIODUN Allen Service: (none) Author Type: Registered Nurse Type: ED Notes Filed: 09/06/2017 1:08 AM Note Text: Pt arrives via EMS from home. Pt states that she took 4 Effexors because she states that she missed her dose yesterday. Pt is tearful and upset. Pt normally takes 2 Effexors daily. Pt denies any thoughts of wanting to hurt herself. Pt states that her daughter called mobile crisis because she said her mother stated she took a handful of Effexors. Dr Frank at bedside to speak with and examine pt. Clothing removed and placed outside by nursing desk. Pt in gown and sitter at bedside. ED NOTE Observed: 09/05/2017 Status: COMPLETED Source: [place] 10:41 PM [facility] REPOSITORY HNO ID: [id number] Author: Samantha (Rn) ABIODUN Allen Service: (none) Author Type: Registered Nurse Type: ED Notes Filed: 09/05/2017 11:30 PM Note Text: Suicide precautions taken in ED room 7. Sitter at bedside. PROGRESS Observed: 08/31/2017 Status: COMPLETED Source: [place] 3:57 PM [facility] REPOSITORY HNO ID: [id number] Author: Ryan Castano Service: (none) Author Type: Physician Type: Progress Notes Filed: 09/02/2017 8:57 PM Note Text: Edgardo Denson is a 51 year old female who presents for her annual exam. At the last visit with me on 07-28 the AANDP was as follows: 1. Gastroenteritis, acute - ICD9: 558.9, ICD10: K52.9 (primary diagnosis) I'm not sure why she is having recurrent episodes of pain and vomiting and diarrhea. I'm concerned about her use of Phenergan on essentially a daily basis. She has not been seen by gastroenterology apparently since 2007. Recent labs in May were reassuring. I'm going to repeat labs now and have her follow up with gastroenterology. - CBC + DIFF - COMP METABOLIC PANEL - LIPASE BLD - CONSULT TO GASTROENTEROLOGY ? 2. Psychiatric disorder - ICD9: 300.9, ICD10: F99 Refill - VENLAFAXINE ER 150 MG CAPSULE,EXTENDED RELEASE 24 HR ? 3. Chronic pain syndrome - ICD9: 338.4, ICD10: G89.4 Refill - VENLAFAXINE ER 150 MG CAPSULE,EXTENDED RELEASE 24 HR ? 4. Other chronic pain - ICD9: 338.29, ICD10: G89.29 Refill, when I see her for her physical exam, we will reduce her fentanyl down to 25 or 37 [25+12] - OXYCODONE-ACETAMINOPHEN 5 MG-325 MG TABLET - FENTANYL 50 MCG/HR TRANSDERMAL PATCH ? 5. Muscle spasm - ICD9: 728.85, ICD10: M62.838 Refill - CLONAZEPAM 0.5 MG TABLET ? 6. Gastroesophageal reflux disease, esophagitis presence not specified - ICD9: 530.81, ICD10: K21.9 - OMEPRAZOLE 20 MG CAPSULE,DELAYED RELEASE - CONSULT TO GASTROENTEROLOGY ? 7. Adenomatous polyp of colon, unspecified part of colon - ICD9: 211.3, ICD10: D12.6 She is due for a colonoscopy. - CONSULT TO GASTROENTEROLOGY ? 8. Chronic bronchitis, unspecified chronic bronchitis type (HCC) - ICD9: 491.9, ICD10: J42 Use regularly, refill She is still smoking. 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 Anemia, Unspecified Other Pulmonary Embolism and Infarction 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) Use of Anticoagulants Muscle Spasm Iron Defic Anemia NEC Other Chronic Pain Chemical Dependency (Hcc) Left Arm Weakness Chest Pain Depression Lethargy Seizure disorder (HCC) Djd (Degenerative Joint Disease), Cervical Emphysema of Lung (Hcc) Chronic Deep Vein Thrombosis of Left Femoral Vein (Hcc) Vitamin D Deficiency Psychosis Gerd (Gastroesophageal Reflux Disease) Asthma Psychiatric Disorder Tubulovillous Adenoma of Colon Nausea PAST MEDICAL HISTORY Diagnosis Date - Asthma - Cellulitis and abscess of leg, except foot 03/01/2007 Orig Leg issue 1996 - Chronic pain syndrome 05/27/2008 Post-herpetic Neuralgia - Depression, reactive - DJD (degenerative joint disease), cervical - Esophageal reflux Hemorrhagic gastritis / hx GI - Headache - Muscle spasm BZD - Other convulsions 02/25/2009 - PE (pulmonary embolism) 07/2006 - PMH - PAST MEDICAL HISTORY OF 07/19/2005 h/o right leg DVT, PE, s/p IVC filter - PMH - PAST MEDICAL HISTORY OF 2005 h/o Osteomyelitis infection - Sleep disturbance, unspecified sleep study 12/21 didn't show sleep apnea but some central apneas - Syncope Dr. 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 PAST SURGICAL HISTORY Procedure Laterality Date - DELIVERY ONLY , low transverse - COLONOSCOP W/ OR W/O [facility] SPEC Colonoscopy - EGD W/O OR W/BRUSH/WASH EGD - LAPAROSCOPIC CHOLEYCYSTECTOMY Cholecystectomy, lap - PAST SURGICAL HISTORY OF 07/20 s/p IVC filter by Dr. Mcpherson - PAST SURGICAL HISTORY OF leg debridements for MRSA FAMILY HISTORY Problem Relation Age of Onset - Ischemic Heart Disease Mother - Stroke Mother - Diabetes Father - renal cell cancer [OTHER] Father Testical cancer, primary renal cancer - testicular cancer [OTHER] Father - Lipids Sister - Lipids Brother - Colon Cancer Paternal Grandmother - stomach cancer [OTHER] Paternal Grandmother - Breast Cancer No Family History ALLERGIES Allergen Reactions - Cellacefate Swelling - Depakote [Divalproe* GI Upset - Dilantin [Phenytoin* GI Upset - Fish Containing Pro* Unknown - Penicillin G GI Upset tolerates zosyn . sdm. 03/2007 TOLERATES KEFLEX 11-12-10 - Shrimp Unknown - Sulfa (Sulfonamide * GI Upset Gastritis - Topamax [Topiramate] Mental Status Change - Haldol [Haloperidol] Mental Status Change, Cough, GI Upset, Itching Current Outpatient Prescriptions on File Prior to Visit: promethazine (PHENERGAN) 25 mg tablet Take 1 tablet by mouth every 8 hours as needed. potassium chloride 20 mEq TbER Take 1 tablet by mouth every Tuesday,Tuesday,Tuesday. dicyclomine (BENTYL) 20 mg tablet Take 1 tablet by mouth four times daily. azithromycin (ZITHROMAX Z-JEREMY) 250 mg tablet Use as directed. venlafaxine XR (EFFEXOR XR) 150 mg 24 hr capsule Take 2 capsules by mouth once daily. omeprazole (PRILOSEC) 20 mg capsule Take 1 capsule by mouth once daily. fluticasone-salmeterol (ADVAIR DISKUS) 500-50 mcg/dose dsdv Inhale 1 Puff as instructed twice daily. RINSE AND GARGLE MOUTH WITH WATER AFTER EACH USE. potassium chloride ER (K-DUR, KLOR-CON) 20 mEq tablet Take 1 tablet by mouth once daily. PRADAXA 150 mg cap take 1 capsule by mouth twice a day spironolactone (ALDACTONE) 25 mg tablet Take 1 tablet by mouth once daily. loperamide (IMODIUM) 2 mg cap(s) Take 1 capsule by mouth as needed for Diarrhea. Cetirizine (ZYRTEC) 10 mg cap Take by mouth once daily. ergocalciferol, vitamin D2, (DRISDOL) 50,000 unit capsule Take 1 capsule by mouth every Tuesday. Indications: VITAMIN D DEFICIENCY gabapentin (NEURONTIN) 300 mg capsule take 3 capsules by mouth three times a day No current facility-administered medications on file prior to visit. Social History Marital status: Spouse name: Years of education: Number of children: 1 Occupational History Occupation Employer Comment [employer]* Social History Main Topics Smoking status: Current Every Day Smoker Packs/day: 1.00 Years: 12.00 Types: Cigarettes Smokeless status: Never Used Comment: Currently smokes two cigarettes a day Alcohol use: No Drug use: No Sexual activity: Not Currently Social History Narrative Lives w/ dtr PHYSICAL EXAMINATION: BP 111/71 Pulse 89 Temp 36.8 ?C (98.2 ?F) (Oral) Ht 158.8 cm (5' 2.5) Wt 53.5 kg (118 lb) BMI 21.24 kg/m2 General appearance: She is thin and very intense and challenging Skin: She has a significant area of alopecia without inflammation on the left side of her scalp Head: normal Eyes: no pallor or icterus Ears: external ears normal, R canal clear and TM normal, L canal clear and TM normal Oropharynx: lips, mucosa, and tongue normal, teeth and gums normal, oropharynx normal Neck: no cervical adenopathy; thyroid normal, no carotid bruits Lungs: clear to percussion and auscultation, no wheezing or rhonchi Breasts: no masses, no scalene or axillary nodes Heart: HS's normal; RRR no ectopy, no gallop or rubs; no murmur Abdomen: abdomen soft, non-tender. Bowel sounds normal. No masses, organomegaly Rectal: deferred Peripheral pulses: pedals present and equal Neuro: normal speech, alert; cranial nerves grossly intact; reflexes normal and symmetric Mental Status: She is aggressively fixed on the idea that she has persistent severe illnesses that are not being managed with [place] into the hospital and make her seriously ill such as persistent MRSA. Extremities: No peripheral edema ASSESSMENT/PLAN: 1. Screening for colorectal cancer - ICD9: V76.51, ICD10: Z12.11, Z12.12 (primary diagnosis) She defers colorectal cancer screening until her serious underlying conditions are diagnosed and treated. 2. Other chronic pain - ICD9: 338.29, ICD10: G89.29 My plan is to wean her further down on the fentanyl at a future visit. - OXYCODONE-ACETAMINOPHEN 5 MG-325 MG TABLET - FENTANYL 50 MCG/HR TRANSDERMAL PATCH 3. Muscle spasm - ICD9: 728.85, ICD10: M62.838 Refill - CLONAZEPAM 0.5 MG TABLET 4. Encounter for gynecological examination without abnormal finding - ICD9: V72.31, ICD10: Z01.419 She is to see a DIRECTOR OF GLOBAL SALES for pelvic exam. 5. Breast cancer screening - ICD9: V76.10, ICD10: Z12.31 - DANA SCREENING 6. Visit for screening mammogram - ICD9: V76.12, ICD10: Z12.31 - DANA SCREENING Ryan Castano MD CNOV Observed: 08/31/2017 Status: COMPLETED Source: [place] 3:00 PM [facility] REPOSITORY Office Visit (FAMPBD) EDGARDO DENSON ([id number]) 1965 F Date Time Provider Department 08/31/17 3:00 PM RYAN CASTANO During your visit today, we recorded the following information about you: Temperature Pulse Blood pressure Weight 98.2 degrees 89/minute 111/71 53.5 kg Height 1.588 m Ryan Castano MD 09/02/2017 8:57 PM Signed Edgardo Denson is a 51 year old female who presents for her annual exam. At the last visit with me on 07-28 the AANDamp;P was as follows: 1. Gastroenteritis, acute - ICD9: 558.9, ICD10: K52.9 (primary diagnosis) I'm not sure why she is having recurrent episodes of pain and vomiting and diarrhea. I'm concerned about her use of Phenergan on essentially a daily basis. She has not been seen by gastroenterology apparently since 2007. Recent labs in May were reassuring. I'm going to repeat labs now and have her follow up with gastroenterology. - CBC + DIFF - COMP METABOLIC PANEL - LIPASE BLD - CONSULT TO GASTROENTEROLOGY ? 2. Psychiatric disorder - ICD9: 300.9, ICD10: F99 Refill - VENLAFAXINE ER 150 MG CAPSULE,EXTENDED RELEASE 24 HR ? 3. Chronic pain syndrome - ICD9: 338.4, ICD10: G89.4 Refill - VENLAFAXINE ER 150 MG CAPSULE,EXTENDED RELEASE 24 HR ? 4. Other chronic pain - ICD9: 338.29, ICD10: G89.29 Refill, when I see her for her physical exam, we will reduce her fentanyl down to 25 or 37 [25+12] - OXYCODONE-ACETAMINOPHEN 5 MG-325 MG TABLET - FENTANYL 50 MCG/HR TRANSDERMAL PATCH ? 5. Muscle spasm - ICD9: 728.85, ICD10: M62.838 Refill - CLONAZEPAM 0.5 MG TABLET ? 6. Gastroesophageal reflux disease, esophagitis presence not specified - ICD9: 530.81, ICD10: K21.9 - OMEPRAZOLE 20 MG CAPSULE,DELAYED RELEASE - CONSULT TO GASTROENTEROLOGY ? 7. Adenomatous polyp of colon, unspecified part of colon - ICD9: 211.3, ICD10: D12.6 She is due for a colonoscopy. - CONSULT TO GASTROENTEROLOGY ? 8. Chronic bronchitis, unspecified chronic bronchitis type (HCC) - ICD9: 491.9, ICD10: J42 Use regularly, refill She is still smoking. 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 Anemia, Unspecified Other Pulmonary Embolism and Infarction Longterm (Current) Use of Anticoagulants Muscle Spasm Iron Defic Anemia NEC Other Chronic Pain Chemical Dependency (Hcc) Left Arm Weakness Chest Pain Depression Lethargy Seizure disorder (HCC) Djd (Degenerative Joint Disease), Cervical Emphysema of Lung (Hcc) Chronic Deep Vein Thrombosis of Left Femoral Vein (Hcc) Vitamin D Deficiency Psychosis Gerd (Gastroesophageal Reflux Disease) Asthma Psychiatric Disorder Tubulovillous Adenoma of Colon Nausea PAST MEDICAL HISTORY Diagnosis Date - Asthma - Cellulitis and abscess of leg, except foot 03/01/2007 Orig Leg issue 1996 - Chronic pain syndrome 05/27/2008 Post-herpetic Neuralgia - Depression, reactive - DJD (degenerative joint disease), cervical - Esophageal reflux Hemorrhagic gastritis / hx GI - Headache - Muscle spasm BZD - Other convulsions 02/25/2009 - PE (pulmonary embolism) 07/2006 - PMH - PAST MEDICAL HISTORY OF 07/19/2005 h/o right leg DVT, PE, s/p IVC filter - PMH - PAST MEDICAL HISTORY OF 2005 h/o Osteomyelitis infection - Sleep disturbance, unspecified sleep study 12/21 didn't show sleep apnea but some central apneas - Syncope Dr. 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 PAST SURGICAL HISTORY Procedure Laterality Date - DELIVERY ONLY , low transverse - COLONOSCOP W/ OR W/O [facility] SPEC Colonoscopy - EGD W/O OR W/BRUSH/WASH EGD - LAPAROSCOPIC CHOLEYCYSTECTOMY Cholecystectomy, lap - PAST SURGICAL HISTORY OF 07/20 s/p IVC filter by Dr. Mcpherson - PAST SURGICAL HISTORY OF leg debridements for MRSA FAMILY HISTORY Problem Relation Age of Onset - Ischemic Heart Disease Mother - Stroke Mother - Diabetes Father - renal cell cancer [OTHER] Father Testical cancer, primary renal cancer - testicular cancer [OTHER] Father - Lipids Sister - Lipids Brother - Colon Cancer Paternal Grandmother - stomach cancer [OTHER] Paternal Grandmother - Breast Cancer No Family History ALLERGIES Allergen Reactions - Cellacefate Swelling - Depakote [Divalproe* GI Upset - Dilantin [Phenytoin* GI Upset - Fish Containing Pro* Unknown - Penicillin G GI Upset tolerates zosyn . sdm. 03/2007 TOLERATES KEFLEX 11-12-10 - Shrimp Unknown - Sulfa (Sulfonamide * GI Upset Gastritis - Topamax [Topiramate] Mental Status Change - Haldol [Haloperidol] Mental Status Change, Cough, GI Upset, Itching Current Outpatient Prescriptions on File Prior to Visit: promethazine (PHENERGAN) 25 mg tablet Take 1 tablet by mouth every 8 hours as needed. potassium chloride 20 mEq TbER Take 1 tablet by mouth every Tuesday,Tuesday,Tuesday. dicyclomine (BENTYL) 20 mg tablet Take 1 tablet by mouth four times daily. azithromycin (ZITHROMAX Z-JEREMY) 250 mg tablet Use as directed. venlafaxine XR (EFFEXOR XR) 150 mg 24 hr capsule Take 2 capsules by mouth once daily. omeprazole (PRILOSEC) 20 mg capsule Take 1 capsule by mouth once daily. fluticasone-salmeterol (ADVAIR DISKUS) 500-50 mcg/dose dsdv Inhale 1 Puff as instructed twice daily. RINSE AND GARGLE MOUTH WITH WATER AFTER EACH USE. potassium chloride ER (K-DUR, KLOR-CON) 20 mEq tablet Take 1 tablet by mouth once daily. PRADAXA 150 mg cap take 1 capsule by mouth twice a day spironolactone (ALDACTONE) 25 mg tablet Take 1 tablet by mouth once daily. loperamide (IMODIUM) 2 mg cap(s) Take 1 capsule by mouth as needed for Diarrhea. Cetirizine (ZYRTEC) 10 mg cap Take by mouth once daily. ergocalciferol, vitamin D2, (DRISDOL) 50,000 unit capsule Take 1 capsule by mouth every Tuesday. Indications: VITAMIN D DEFICIENCY gabapentin (NEURONTIN) 300 mg capsule take 3 capsules by mouth three times a day No current facility-administered medications on file prior to visit. Social History Marital status: Spouse name: Years of education: Number of children: 1 Occupational History Occupation Employer Comment [employer]* Social History Main Topics Smoking status: Current Every Day Smoker Packs/day: 1.00 Years: 12.00 Types: Cigarettes Smokeless status: Never Used Comment: Currently smokes two cigarettes a day Alcohol use: No Drug use: No Sexual activity: Not Currently Social History Narrative Lives w/ dtr PHYSICAL EXAMINATION: BP 111/71 Pulse 89 Temp 36.8 ?C (98.2 ?F) (Oral) Ht 158.8 cm (5' 2.5ANDquot;) Wt 53.5 kg (118 lb) BMI 21.24 kg/m2 General appearance: She is thin and very intense and challenging Skin: She has a significant area of alopecia without inflammation on the left side of her scalp Head: normal Eyes: no pallor or icterus Ears: external ears normal, R canal clear and TM normal, L canal clear and TM normal Oropharynx: lips, mucosa, and tongue normal, teeth and gums normal, oropharynx normal Neck: no cervical adenopathy; thyroid normal, no carotid bruits Lungs: clear to percussion and auscultation, no wheezing or rhonchi Breasts: no masses, no scalene or axillary nodes Heart: HS's normal; RRR no ectopy, no gallop or rubs; no murmur Abdomen: abdomen soft, non-tender. Bowel sounds normal. No masses, organomegaly Rectal: deferred Peripheral pulses: pedals present and equal Neuro: normal speech, alert; cranial nerves grossly intact; reflexes normal and symmetric Mental Status: She is aggressively fixed on the idea that she has persistent severe illnesses that are not being managed with [place] into the hospital and make her seriously ill such as persistent MRSA. Extremities: No peripheral edema ASSESSMENT/PLAN: 1. Screening for colorectal cancer - ICD9: V76.51, ICD10: Z12.11, Z12.12 (primary diagnosis) She defers colorectal cancer screening until her serious underlying conditions are diagnosed and treated. 2. Other chronic pain - ICD9: 338.29, ICD10: G89.29 My plan is to wean her further down on the fentanyl at a future visit. - OXYCODONE-ACETAMINOPHEN 5 MG-325 MG TABLET - FENTANYL 50 MCG/HR TRANSDERMAL PATCH 3. Muscle spasm - ICD9: 728.85, ICD10: M62.838 Refill - CLONAZEPAM 0.5 MG TABLET 4. Encounter for gynecological examination without abnormal finding - ICD9: V72.31, ICD10: Z01.419 She is to see a DIRECTOR OF GLOBAL SALES for pelvic exam. 5. Breast cancer screening - ICD9: V76.10, ICD10: Z12.31 - DANA SCREENING 6. Visit for screening mammogram - ICD9: V76.12, ICD10: Z12.31 - DANA SCREENING MD Ryan Webb MD 08/31/2017 4:29 PM Signed Schedule with OBGyn for Pap smear or we can do it at a visit here Please schedule a mammogram Referring Provider: SELF [[id number]] Allergies As of Date: 08/31/2017 Noted Allergy Reaction CELLACEFATE 01/07/2006 7 - Swelling DEPAKOTE (DIVALPROEX SODIUM) 01/07/2006 8 - GI Upset DILANTIN (PHENYTOIN SODIUM EXTEND*06/03/2015 8 - GI Upset FISH CONTAINING PRODUCTS 05/13/2015 16 - Unknown PENICILLIN G 01/07/2006 8 - GI Upset Comments: tolerates zosyn . sdm. 03/2007 TOLERATES KEFLEX 3-31-11 SHRIMP 05/13/2015 16 - Unknown SULFA (SULFONAMIDE ANTIBIOTICS) 05/17/2007 8 - GI Upset Comments: Gastritis TOPAMAX (TOPIRAMATE) 05/21/2009 1 - Mental Status Change HALDOL (HALOPERIDOL) 02/03/2008 1 - Mental Status Change 3 - Cough 8 - GI Upset 9 - Itching Date Reviewed: 08/31/2017 Reviewed by: Dolores Rothman - Fully Assessed Reason for Visit: Physical [83] Primary Visit Diagnosis:Screening for colorectal cancer [Z12.11, Z12.12] Other Visit Diagnoses:Other chronic pain [G89.29] Muscle spasm [M62.838] Encounter for gynecological examination without abnormal finding [Z01.419] Breast cancer screening [Z12.31] Visit for screening mammogram [Z12.31] Order(s):oxyCODONE-acetaminophen (PERCOCET) 5-325 mg tablet1 po q4h prn breakthrough pain (MAXIMUM 6 pills/day) Earliest Fill Date: 08/31/17Disp: 180 tabletRfl: 0 fentaNYL (DURAGESIC) 50 mcg/hrApply 1 Patch as directed every 72 hours for 30 days. Use with 12 mcg patch Earliest Fill Date: 08/31/17Disp: 10 PatchRfl: 0 clonazePAM (KLONOPIN) 0.5 mg tabletTake 1 tablet by mouth three times daily as needed for up to 3 days.Disp: 90 tabletRfl: 0 DANA SCREENING [[id number]] Order #: [id number] FUTURE Prescriptions as of 08/31/2017 Sig: OXYCODONE-ACETAMINOPHEN 5 MG-* 1 po q4h prn breakthrough anthony* FENTANYL 50 MCG/HR TRANSDERMA* Apply 1 Patch as directed prachi* CLONAZEPAM 0.5 MG TABLET Take 1 tablet by mouth three * PROMETHAZINE 25 MG TABLET Take 1 tablet by mouth every * POTASSIUM CHLORIDE ER 20 MEQ * Take 1 tablet by mouth every * DICYCLOMINE 20 MG TABLET Take 1 tablet by mouth four t* AZITHROMYCIN 250 MG TABLET Use as directed. VENLAFAXINE ER 150 MG CAPSULE* Take 2 capsules by mouth once* OMEPRAZOLE 20 MG CAPSULE,VENESSA* Take 1 capsule by mouth once * FLUTICASONE 500 MCG-SALMETERO* Inhale 1 Puff as instructed t* POTASSIUM CHLORIDE ER 20 MEQ * Take 1 tablet by mouth once d* PRADAXA 150 MG CAPSULE take 1 capsule by mouth twice* X GABAPENTIN 300 MG CAPSULE Take 3 capsules by mouth thre* SPIRONOLACTONE 25 MG TABLET Take 1 tablet by mouth once d* LOPERAMIDE 2 MG CAPSULE Take 1 capsule by mouth as ne* CETIRIZINE 10 MG CAPSULE Take by mouth once daily. ERGOCALCIFEROL (VITAMIN D2) 5* Take 1 capsule by mouth every* Problem List As Of Date 08/31/2017 Noted Resolved Cellulitis and abscess of leg, except foot [L03*INVALID FOR*02/25/2017 Methicillin susceptible Staphylococcus aureus i*INVALID FOR*02/25/2017 Pseudomonas infection in conditions classified *INVALID FOR*02/25/2017 Edema [R60.9] INVALID FOR*08/31/2017 Reflex sympathetic dystrophy of lower limb [G90*INVALID FOR* Psoas muscle abscess (HCC) [K68.12] INVALID FOR*02/25/2017 More... Candidiasis of unspecified site [B37.9] INVALID FOR*08/31/2017 More... Other streptococcus infection in conditions cla*INVALID FOR*02/25/2017 More... Bacteremia [R78.81] INVALID FOR*02/25/2017 Other lymphedema [I89.0] INVALID FOR*02/25/2017 Chronic pain syndrome [G89.4] INVALID FOR* Opioid Type Dependence, Continuous Abuse [F11.2*INVALID FOR* TOBACCO USE DISORDER [F17.200] Other convulsions [R56.9] INVALID FOR*02/25/2017 Priority: Moderate Sleep Hypovent Oth Dis [G47.36] INVALID FOR* Priority: Mild HYPOPOTASSEMIA [E87.6] INVALID FOR*02/28/2009 Priority: Moderate VENA CAVA THROMBOSIS [I82.220] INVALID FOR* ANEMIA NOS [D64.9] INVALID FOR* Embolism and thrombosis (HCC) [I74.9] INVALID FOR*02/25/2017 Priority: B More... Other Pulmonary Embolism and Infarction [I26.99]INVALID FOR* Encounter for Long-Term (Current) Use of Antico*INVALID FOR* More... Left leg pain [M79.605] INVALID FOR*02/25/2017 Muscle spasm [M62.838] INVALID FOR* Leg pain [M79.606] INVALID FOR*02/25/2017 Depression, reactive [F32.9] 02/25/2017 More... Iron Defic Anemia NEC INVALID FOR* Agitation [R45.1] INVALID FOR*02/25/2017 Other chronic pain [G89.29] INVALID FOR* Priority: F More... Altered mental status [R41.82] INVALID FOR*05/19/2016 Chemical dependency [F19.20] INVALID FOR* SUMMARY INVALID FOR*02/25/2017 Priority: A More... Left arm weakness [R29.898] INVALID FOR* Priority: B More... Chest pain [R07.9] INVALID FOR* Priority: A More... Cellulitis [L03.90] INVALID FOR*02/25/2017 Priority: D More... Depression [F32.9] INVALID FOR* Priority: D More... Lethargy [R53.83] INVALID FOR* More... Seizure disorder (HCC) [G40.909] INVALID FOR* More... Low BP [I95.9] INVALID FOR*08/31/2017 More... DJD (degenerative joint disease), cervical [M50* Anxiety state, unspecified [F41.1] 04/22/2014 Pain [R52] INVALID FOR*08/31/2017 Priority: B More... Fever [R50.9] INVALID FOR*02/25/2017 Priority: C More... Delirium [R41.0] INVALID FOR*02/25/2017 Priority: A More... Hematemesis [K92.0] INVALID FOR*02/25/2017 Priority: C More... Emphysema of lung (HCC) [J43.9] INVALID FOR* Smoker [F17.200] INVALID FOR*02/25/2017 Chronic deep vein thrombosis of left femoral ve*INVALID FOR* Vitamin D deficiency [E55.9] INVALID FOR* Psychosis [F29] INVALID FOR* GERD (gastroesophageal reflux disease) [K21.9] INVALID FOR* Asthma [J45.909] INVALID FOR* Orthostatic hypotension [I95.1] INVALID FOR*08/31/2017 More... Psychiatric disorder [F99] INVALID FOR* More... 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 Syncope [R55] INVALID FOR*08/31/2017 Intentional fentanyl overdose (HCC) [T40.4X2A] INVALID FOR*08/31/2017 Nausea [R11.0] INVALID FOR* Other instructions from your clinician: Schedule with OBGyn for Pap smear or we can do it at a visit here Please schedule a mammogram Prescriptions ordered this encounter Disp Refills Start End OXYCODONE-ACETAMINOPHEN 5 MG-325 MG * 180 * 0 08/31/2017 09/30/2017 Class: Print RX Si po q4h prn breakthrough pain (MAXIMUM 6 pills/day) Earliest Fill Date: 08/31/17 FENTANYL 50 MCG/HR TRANSDERMAL PATCH 10 P* 0 08/31/2017 09/30/2017 Class: Print RX Route: TRANSDERM. Sig: Apply 1 Patch as directed every 72 hours for 30 days. Use with 12 mcg patch Earliest Fill Date: 08/31/17 CLONAZEPAM 0.5 MG TABLET 90 t* 0 08/31/2017 09/03/2017 Class: Print RX Route: ORAL Sig: Take 1 tablet by mouth three times daily as needed for up to 3 days. Medications Discontinued During This Encounter oxyCODONE-acetaminophen (PERCOCET) 5* 12 t* 0 08/29/2017 08/31/2017 Class: Print RX Si po q4h prn breakthrough pain (MAXIMUM 6 pills/day) Earliest Fill Date: 08/29/17 Disc: Reason for discontinue is not on file. fentaNYL (DURAGESIC) 50 mcg/hr 2 Pa* 0 08/27/2017 08/31/2017 Class: Print RX Route: TRANSDERMAL Sig: Apply 1 Patch as directed every 72 hours for 6 days. Use with 12 mcg patch Earliest Fill Date: 08/27/17 Disc: Reason for discontinue is not on file. clonazePAM (KLONOPIN) 0.5 mg tablet 9 ta* 0 08/29/2017 08/31/2017 Class: Print RX Route: ORAL Sig: Take 1 tablet by mouth three times daily as needed for up to 3 days. Disc: Reason for discontinue is not on file. Disposition: Return in about 1 month (around 10/01/2017) for follow Christine. Follow-up and Disposition History Recorded Encounter Status:Closed by RYAN CASTANO MD on 09/02/17 OBSOLETE Observed: 08/24/2017 Status: COMPLETED Source: [place] 12:00 AM [facility] REPOSITORY Refill (FAMPBD) EDGARDO DENSON ([id number]) 1965 F Date Time Provider Department 08/24/17 NORM TAVAREZ FAMPBD During your visit today, we recorded the following information about you: Edmund Strong Psr 08/24/2017 1:17 PM Signed Patient has been identified by name and date of : Yes Patient phoned to request the following prescription(s) If there are any questions regarding this prescription request, call at home at: [phone] (home) [phone] (cell) RX INSTRUCTIONS: Patient requesting a call when RX is approved and sent to the pharmacy. Please call patient at: home Date of last refill: Unknown Date of last office visit: Unknown Date of future office visit: 08/31/17 Pending Prescriptions Disp Refills OXYCODONE-ACETAMINOPHEN 5 MG-325 MG TABLET 180 tablet 0 Si po q4h prn breakthrough pain (MAXIMUM 6 pills/day) JOSEFINA Class: C-II KRYSTAL: No FENTANYL 50 MCG/HR TRANSDERMAL PATCH 10 Patch 0 Sig: Apply 1 Patch as directed every 72 hours. Use with 12 mcg patch JOSEFINA Class: C-II KRYSTAL: No PROMETHAZINE 25 MG TABLET 30 tablet 0 Sig: Take 1 tablet by mouth every 8 hours as needed. KRYSTAL: No CLONAZEPAM 0.5 MG TABLET 90 tablet 0 Sig: Take 1 tablet by mouth three times daily as needed. JOSEFINA Class: C-IV KRYSTAL: No POTASSIUM CHLORIDE ER 20 MEQ TABLET,EXTENDED RELEASE 36 tablet 1 Sig: Take 1 tablet by mouth every Tuesday,Tuesday,Tuesday. KRYSTAL: No DICYCLOMINE 20 MG TABLET 20 tablet 0 Sig: Take 1 tablet by mouth four times daily. KRYSTAL: No Prescriptions are usually addressed within 24-48 business hours. If patient states they cannot wait 24-48 business hours, please document details. Last 2 Encounter Wt Readings: Date: Wt: 08/18/2017 52.2 kg (115 lb) 07/27/2017 55.3 kg (122 lb) Last 2 Encounter BP Readings: Date: BP: 08/18/2017 108/66 07/27/2017 96/78 CMP: Glucose 83 07/27/2017 BUN 11 07/27/2017 Creatinine 0.60 07/27/2017 Sodium 143 07/27/2017 Potassium 3.7 07/27/2017 Chloride 103 07/27/2017 CO2 22 07/27/2017 Protein, Total 8.3 07/27/2017 Albumin 4.2 07/27/2017 Calcium 9.4 07/27/2017 Alkaline Phosphatase 105 07/27/2017 Bilirubin, Total 0.5 07/27/2017 AST 24 07/27/2017 ALT 8 07/27/2017 Cholesterol (mg/dL) Date Value 07/27/2017 169 09/29/2015 185 HDL Cholesterol (mg/dL) Date Value 07/27/2017 50 09/29/2015 38 LDL Cholesterol (mg/dL) Date Value 07/27/2017 104 09/29/2015 110 Triglyceride (mg/dL) Date Value 07/27/2017 77 09/29/2015 187 TSH Date Value Ref Range Status 05/16/2016 3.390 0.400 - 5.500 uU/mL Final Comment: If the patient is , TSH reference range varies by gestational period: First Trimester 0.1-2.5 uU/mL Second Trimester 0.2-3.0 uU/mL Third Trimester 0.3-3.0 uU/mL No results found for: HBA1C Hemoglobin (g/dL) Date Value 07/27/2017 15.9 Hematocrit (%) Date Value 07/27/2017 47.6 WBC (k/uL) Date Value 07/27/2017 6.15 Platelet Count (k/uL) Date Value 07/27/2017 305 Edmund Strong Psr Lynn Will Psr 08/25/2017 1:33 PM Signed Daughter calling to check status. Lynn Will Psr 08/25/2017 4:23 PM Signed Daughter calling back to check status. Ryan Castano MD 08/25/2017 6:41 PM Signed Signed Prescriptions Disp Refills oxyCODONE-acetaminophen (PERCOCET) 5-325 mg tablet 12 tablet 0 Si po q4h prn breakthrough pain (MAXIMUM 6 pills/day)Earliest Fill Date: 08/29/17 JOSEFINA Class: C-II KRYSTAL: No Authorizing Provider: RYAN CASTANO fentaNYL (DURAGESIC) 50 mcg/hr 2 Patch 0 Sig: Apply 1 Patch as directed every 72 hours for 6 days. Use with 12 mcg patchEarliest Fill Date: 08/27/17 JOSEFINA Class: C-II KRYSTAL: No Authorizing Provider: RYAN CASTANO promethazine (PHENERGAN) 25 mg tablet 10 tablet 0 Sig: Take 1 tablet by mouth every 8 hours as needed. KRYSTAL: No Authorizing Provider: RYAN CASTANO clonazePAM (KLONOPIN) 0.5 mg tablet 9 tablet 0 Sig: Take 1 tablet by mouth three times daily as needed for up to 3 days. JOSEFINA Class: C-IV KRYSTAL: No Authorizing Provider: RYAN CASTANO potassium chloride 20 mEq TbER 36 tablet 1 Sig: Take 1 tablet by mouth every Tuesday,Tuesday,Tuesday. KRYSTAL: No Authorizing Provider: RYAN CASTANO dicyclomine (BENTYL) 20 mg tablet 20 tablet 0 Sig: Take 1 tablet by mouth four times daily. KRYSTAL: No Authorizing Provider: RYNA CASTANO MD The prescription has been printed for order picker. Sufficient meds given to get to upcoming appt Leon Rowan Psr 08/26/2017 11:51 AM Signed Patient calls to check on status of refill request. Patient advised prescriptions are available for pickup. Patient stated she would call back to advise the office who will be picking up the prescriptions. Thank you. Leon Khanner Psr Allergies As of Date: 08/24/2017 Noted Allergy Reaction CELLACEFATE 01/07/2006 7 - Swelling DEPAKOTE (DIVALPROEX SODIUM) 01/07/2006 8 - GI Upset DILANTIN (PHENYTOIN SODIUM EXTEND*06/03/2015 8 - GI Upset FISH CONTAINING PRODUCTS 05/13/2015 16 - Unknown PENICILLIN G 01/07/2006 8 - GI Upset Comments: tolerates zosyn . sdm. 03/2007 TOLERATES KEFLEX 3-31-11 SHRIMP 05/13/2015 16 - Unknown SULFA (SULFONAMIDE ANTIBIOTICS) 05/17/2007 8 - GI Upset Comments: Gastritis TOPAMAX (TOPIRAMATE) 05/21/2009 1 - Mental Status Change HALDOL (HALOPERIDOL) 02/03/2008 1 - Mental Status Change 3 - Cough 8 - GI Upset 9 - Itching Date Reviewed: 08/18/2017 Reviewed by: Bronwyn Arellano-Zeyad Delcid - Fully Assessed Reason for Visit: Refill Request [94] Primary Visit Diagnosis:Hypokalemia [E87.6] Other Visit Diagnoses:Other chronic pain [G89.29] Nausea [R11.0] Muscle spasm [M62.838] Order(s):[START ON 08/29/2017] oxyCODONE-acetaminophen (PERCOCET) 5-325 mg tablet1 po q4h prn breakthrough pain (MAXIMUM 6 pills/day) Earliest Fill Date: 08/29/17Disp: 12 tabletRfl: 0 [START ON 08/27/2017] fentaNYL (DURAGESIC) 50 mcg/hrApply 1 Patch as directed every 72 hours for 6 days. Use with 12 mcg patch Earliest Fill Date: 1/13/18Disp: 2 PatchRfl: 0 promethazine (PHENERGAN) 25 mg tabletTake 1 tablet by mouth every 8 hours as needed.Disp: 10 tabletRfl: 0 potassium chloride 20 mEq TbERTake 1 tablet by mouth every Tuesday,Tuesday,Tuesday.Disp: 36 tabletRfl: 1 dicyclomine (BENTYL) 20 mg tabletTake 1 tablet by mouth four times daily.Disp: 20 tabletRfl: 0 Prescriptions as of 08/24/2017 Sig: OXYCODONE-ACETAMINOPHEN 5 MG-* 1 po q4h prn breakthrough anthony* FENTANYL 50 MCG/HR TRANSDERMA* Apply 1 Patch as directed prachi* PROMETHAZINE 25 MG TABLET Take 1 tablet by mouth every * POTASSIUM CHLORIDE ER 20 MEQ * Take 1 tablet by mouth every * DICYCLOMINE 20 MG TABLET Take 1 tablet by mouth four t* X CLONAZEPAM 0.5 MG TABLET Take 1 tablet by mouth three * AZITHROMYCIN 250 MG TABLET Use as directed. VENLAFAXINE ER 150 MG CAPSULE* Take 2 capsules by mouth once* OMEPRAZOLE 20 MG CAPSULE,VENESSA* Take 1 capsule by mouth once * FLUTICASONE 500 MCG-SALMETERO* Inhale 1 Puff as instructed t* POTASSIUM CHLORIDE ER 20 MEQ * Take 1 tablet by mouth once d* PRADAXA 150 MG CAPSULE take 1 capsule by mouth twice* GABAPENTIN 300 MG CAPSULE Take 3 capsules by mouth thre* SPIRONOLACTONE 25 MG TABLET Take 1 tablet by mouth once d* LOPERAMIDE 2 MG CAPSULE Take 1 capsule by mouth as ne* CETIRIZINE 10 MG CAPSULE Take by mouth once daily. ERGOCALCIFEROL (VITAMIN D2) 5* Take 1 capsule by mouth every* Problem List As Of Date 08/24/2017 Noted Resolved Cellulitis and abscess of leg, except foot [L03*INVALID FOR*02/25/2017 Methicillin susceptible Staphylococcus aureus i*INVALID FOR*02/25/2017 Pseudomonas infection in conditions classified *INVALID FOR*02/25/2017 Edema [R60.9] INVALID FOR* Reflex sympathetic dystrophy of lower limb [G90*INVALID FOR* Psoas muscle abscess (HCC) [K68.12] INVALID FOR*02/25/2017 More... CANDIDIASIS SITE NOS [B37.9] INVALID FOR* More... Other streptococcus infection in conditions cla*INVALID FOR*02/25/2017 More... Bacteremia [R78.81] INVALID FOR*02/25/2017 Other lymphedema [I89.0] INVALID FOR*02/25/2017 Chronic pain syndrome [G89.4] INVALID FOR* Opioid Type Dependence, Continuous Abuse [F11.2*INVALID FOR* TOBACCO USE DISORDER [F17.200] Other convulsions [R56.9] INVALID FOR*02/25/2017 Priority: Moderate Sleep Hypovent Oth Dis [G47.36] INVALID FOR* Priority: Mild HYPOPOTASSEMIA [E87.6] INVALID FOR*02/28/2009 Priority: Moderate VENA CAVA THROMBOSIS [I82.220] INVALID FOR* ANEMIA NOS [D64.9] INVALID FOR* Embolism and thrombosis (HCC) [I74.9] INVALID FOR*02/25/2017 Priority: B More... Other Pulmonary Embolism and Infarction [I26.99]INVALID FOR* Encounter for Long-Term (Current) Use of Antico*INVALID FOR* More... Left leg pain [M79.605] INVALID FOR*02/25/2017 Muscle spasm [M62.838] INVALID FOR* Leg pain [M79.606] INVALID FOR*02/25/2017 Depression, reactive [F32.9] 02/25/2017 More... Iron Defic Anemia NEC INVALID FOR* Agitation [R45.1] INVALID FOR*02/25/2017 Other chronic pain [G89.29] INVALID FOR* Priority: F More... Altered mental status [R41.82] INVALID FOR*05/19/2016 Chemical dependency [F19.20] INVALID FOR* SUMMARY INVALID FOR*02/25/2017 Priority: A More... Left arm weakness [R29.898] INVALID FOR* Priority: B More... Chest pain [R07.9] INVALID FOR* Priority: A More... Cellulitis [L03.90] INVALID FOR*02/25/2017 Priority: D More... Depression [F32.9] INVALID FOR* Priority: D More... Lethargy [R53.83] INVALID FOR* More... Seizure disorder (HCC) [G40.909] INVALID FOR* More... Low BP [I95.9] INVALID FOR* More... DJD (degenerative joint disease), cervical [M50* Anxiety state, unspecified [F41.1] 04/22/2014 Pain [R52] INVALID FOR* Priority: B More... Fever [R50.9] INVALID FOR*02/25/2017 Priority: C More... Delirium [R41.0] INVALID FOR*02/25/2017 Priority: A More... Hematemesis [K92.0] INVALID FOR*02/25/2017 Priority: C More... Emphysema of lung (HCC) [J43.9] INVALID FOR* Smoker [F17.200] INVALID FOR*02/25/2017 Chronic deep vein thrombosis of left femoral ve*INVALID FOR* Vitamin D deficiency [E55.9] INVALID FOR* Psychosis [F29] INVALID FOR* GERD (gastroesophageal reflux disease) [K21.9] INVALID FOR* Asthma [J45.909] INVALID FOR* Orthostatic hypotension [I95.1] INVALID FOR* More... Psychiatric disorder [F99] INVALID FOR* More... 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 Syncope [R55] INVALID FOR* Intentional fentanyl overdose ([facility]) [T40.4X2A] INVALID FOR* Nausea [R11.0] INVALID FOR* Prescriptions ordered this encounter Disp Refills Start End OXYCODONE-ACETAMINOPHEN 5 MG-325 MG * 12 t* 0 08/29/2017 08/31/2017 Class: Print RX Si po q4h prn breakthrough pain (MAXIMUM 6 pills/day) Earliest Fill Date: 08/29/17 FENTANYL 50 MCG/HR TRANSDERMAL PATCH 2 Pa* 0 08/27/2017 09/02/2017 Class: Print RX Route: TRANSDERM. Sig: Apply 1 Patch as directed every 72 hours for 6 days. Use with 12 mcg patch Earliest Fill Date: 08/27/17 PROMETHAZINE 25 MG TABLET 10 t* 0 08/25/2017 Route: ORAL Sig: Take 1 tablet by mouth every 8 hours as needed. CLONAZEPAM 0.5 MG TABLET 9 ta* 0 08/29/2017 08/25/2017 Class: Call Rx Route: ORAL Sig: Take 1 tablet by mouth three times daily as needed for up to 3 days. POTASSIUM CHLORIDE ER 20 MEQ TABLET,* 36 t* 1 08/26/2017 Route: ORAL Sig: Take 1 tablet by mouth every Tuesday,Tuesday,Tuesday. DICYCLOMINE 20 MG TABLET 20 t* 0 08/25/2017 Route: ORAL Sig: Take 1 tablet by mouth four times daily. Medications Discontinued During This Encounter oxyCODONE-acetaminophen (PERCOCET) 5* 180 * 0 07/30/2017 08/25/2017 Class: Print RX Si po q4h prn breakthrough pain (MAXIMUM 6 pills/day) Disc: Reason for discontinue is not on file. fentaNYL (DURAGESIC) 50 mcg/hr 10 P* 0 07/27/2017 08/25/2017 Class: Print RX Cmt: dispense on or after 01/19/17 Route: TRANSDERMAL Sig: Apply 1 Patch as directed every 72 hours. Use with 12 mcg patch Disc: Reason for discontinue is not on file. promethazine (PHENERGAN) 25 mg tablet 30 t* 0 07/25/2017 08/25/2017 Route: ORAL Sig: Take 1 tablet by mouth every 8 hours as needed. Disc: Reason for discontinue is not on file. clonazePAM (KLONOPIN) 0.5 mg tablet 90 t* 0 07/30/2017 08/25/2017 Class: Print RX Route: ORAL Sig: Take 1 tablet by mouth three times daily as needed. Disc: Reason for discontinue is not on file. potassium chloride 20 mEq TbER 36 t* 1 10/27/2016 08/25/2017 Route: ORAL Sig: Take 1 tablet by mouth every Tuesday,Tuesday,Tuesday. Disc: Reason for discontinue is not on file. dicyclomine (BENTYL) 20 mg tablet 20 t* 0 05/21/2017 08/25/2017 Class: Print RX Route: ORAL Sig: Take 1 tablet by mouth four times daily. Disc: Reason for discontinue is not on file. Encounter Status:Closed by LEON BOWIE on 08/26/17 PROGRESS Observed: 08/18/2017 Status: COMPLETED Source: [place] 2:00 PM [facility] REPOSITORY HNO ID: [id number] Author: Bronwyn Arellano- Bhavin Service: (none) Author Type: Nurse Practitioner Type: Progress Notes Filed: 08/18/2017 2:50 PM Note Text: HPI Comments: Cc: cough She is here as a new patient for a cough. It started 1-2 weeks ago. Her chest hurts and she can not get the phlegm up. She tried mucinex, but it did not help. She has seen dr. Choi, dr. Rae, dr. Miller, and the pcp was dr. Castano. x1-2 weeks non-productive cough, SOB, wheezing. Denies nasal congestion, rhinorrhea, ST, N/V/D, fever. OTC mucinex. Using nebulizer with xopenex. ROS Nose: Negative for nasal discharge. Negative for stuffiness. Throat: Negative for sore throat. Respiratory: Negative for sputum or phlegm, hemoptysis. + cough, SOB, wheezing. Neurology: Negative for headaches. Gastrointestinal: Negative for diarrhea and nausea. Musculoskeletal: Negative for myalgias. Hemat/Lymph: Negative for lymphadenopathy. PAST MEDICAL HISTORY Diagnosis Date - Asthma - Cellulitis and abscess of leg, except foot 03/01/2007 Orig Leg issue 1996 - Chronic pain syndrome 05/27/2008 Post-herpetic Neuralgia - Depression, reactive - DJD (degenerative joint disease), cervical - Esophageal reflux Hemorrhagic gastritis / hx GI - Headache - Muscle spasm BZD - Other convulsions 02/25/2009 - PE (pulmonary embolism) 07/2006 - PMH - PAST MEDICAL HISTORY OF 07/19/2005 h/o right leg DVT, PE, s/p IVC filter - PMH - PAST MEDICAL HISTORY OF 2005 h/o Osteomyelitis infection - Sleep disturbance, unspecified sleep study 12/21 didn't show sleep apnea but some central apneas - Syncope Dr. 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 PAST SURGICAL HISTORY Procedure Laterality Date - DELIVERY ONLY , low transverse - CHOLECYSTECTOMY HX - COLONOSCOP W/ OR W/O [facility] SPEC Colonoscopy - EGD W/O OR W/BRUSH/WASH EGD - LAPAROSCOPIC CHOLEYCYSTECTOMY Cholecystectomy, lap - PAST SURGICAL HISTORY OF 07/20 s/p IVC filter by Dr. Mcpherson FAMILY HISTORY Problem Relation Age of Onset - Ischemic Heart Disease Mother - COPD Mother - Cancer Father Testical cancer, primary renal cancer - Diabetes Father - Lipids Sister - Lipids Brother - Stroke Mother Social History Marital status: Spouse name: Years of education: Number of children: 1 Occupational History Occupation Employer Comment [employer]* Social History Main Topics Smoking status: Current Every Day Smoker Packs/day: 1.00 Years: 12.00 Types: Cigarettes Smokeless status: Never Used Comment: Currently smokes half a pack a day Alcohol use: No Drug use: No Sexual activity: Not Currently Social History Narrative Lives w/ dtr Current Meds venlafaxine XR (EFFEXOR XR) 150 mg 24 hr capsule Take 2 capsules by mouth once daily. oxyCODONE-acetaminophen (PERCOCET) 5-325 mg tablet 1 po q4h prn breakthrough pain (MAXIMUM 6 pills/day) clonazePAM (KLONOPIN) 0.5 mg tablet Take 1 tablet by mouth three times daily as needed. fentaNYL (DURAGESIC) 50 mcg/hr Apply 1 Patch as directed every 72 hours. Use with 12 mcg patch omeprazole (PRILOSEC) 20 mg capsule Take 1 capsule by mouth once daily. fluticasone-salmeterol (ADVAIR DISKUS) 500-50 mcg/dose dsdv Inhale 1 Puff as instructed twice daily. RINSE AND GARGLE MOUTH WITH WATER AFTER EACH USE. promethazine (PHENERGAN) 25 mg tablet Take 1 tablet by mouth every 8 hours as needed. potassium chloride ER (K-DUR, KLOR-CON) 20 mEq tablet Take 1 tablet by mouth once daily. dicyclomine (BENTYL) 20 mg tablet Take 1 tablet by mouth four times daily. PRADAXA 150 mg cap take 1 capsule by mouth twice a day gabapentin (NEURONTIN) 300 mg capsule Take 3 capsules by mouth three times daily. spironolactone (ALDACTONE) 25 mg tablet Take 1 tablet by mouth once daily. potassium chloride 20 mEq TbER Take 1 tablet by mouth every Tuesday,Tuesday,Tuesday. loperamide (IMODIUM) 2 mg cap(s) Take 1 capsule by mouth as needed for Diarrhea. Cetirizine (ZYRTEC) 10 mg cap Take by mouth once daily. ergocalciferol, vitamin D2, (DRISDOL) 50,000 unit capsule Take 1 capsule by mouth every Tuesday. Indications: VITAMIN D DEFICIENCY BP 108/66 Pulse 86 Temp (Src) 99.4 (Oral) Resp 16 Ht 5' 4 (1.63m) Wt 115 lb (52.2kg) SpO2 95% BMI 19.73 kg/(m2). Physical Exam Constitutional: Well developed. Well-nourished. Head/Face/Neck: Normocephalic. Eyes: Lids appear normal. PERRLA. Nose: Negative for Sinus tenderness. Negative for Nasal discharge. Ears: TMs intact. No discharge. Ear canals normal. No inflammation of TM noticed. Mouth-Throat: Tonsillar hypertrophy absent. Normal Oropharynx. Skin: No obvious rashes. Musculoskeletal: ROM good. Neurology: Orientation: Oriented to person, place and time. Neck: Supple and symmetrical. Lymphatic: No cervical lymphadenopathy. Psychiatric: Not anxious. Judgment good. Mood and affect good. Respiratory: LS diminished with scattered wheezing. Cardiovascular: Inspection normal. Normal S1. Normal S2. No murmur auscultated. Extremities: No evidence of extremity cyanosis. ASSESSMENT/PLAN: 1. Bronchitis - ICD9: 490, ICD10: J40 (primary diagnosis) - XR CHEST 2V FRONTAL/LAT - AZITHROMYCIN 250 MG TABLET - Continue neb txs. - Will avoid prednisone for now d/t pt stating has caused GI bleeding in the past. - Advised if worse to go to ER. 2. Body mass index (BMI) less than or equal to 19 in adult - ICD9: [id number], ICD10: Z68.1 OBED [place]- Patient Instructions Thank you for visiting us today. Your results will be released to My Chart. Please enroll in it if you have not already done so. Please call/schedule appointment to discuss any lab/imaging study results. If you see a specialist, please have them send us the information and make appointment for follow up with us to discuss recommendations. If your blood work was not done at the [facility] the results may not appear in My Chart. Please continue to watch diet and increase exercise as tolerated. Please try to maintain ideal body weight. Please call us if you have any questions or any new problems. Office phone number is [phone]. Please make a follow up appointment as directed. If there is any new problem, please feel free to call for an urgent appointment. Return if symptoms worsen or fail to improve. ALLERGIES ALLERGIES DATE TYPE / NAME / CODE REACTION SEVERITY SOURCE CODE 07/12/2018 Drug Penicillins/[id number] Swelling Unknown [facility] Allergy/41 476(RXNORM) Hospital 3184599(SN Repository OMED CT) 07/12/2018 Drug acetaminophen/F0060 Swelling Unknown [facility] Allergy/41 99816(RXNORM) Hospital 1578468(SN Repository OMED CT) 07/12/2018 Drug divalproex Swelling Unknown [facility] Allergy/41 sodium/[id number](R Hospital 7001177(SN XNORM) Repository OMED CT) 07/12/2018 Drug carbamazepine/F0060 Swelling Unknown [facility] Allergy/41 59883(RXNORM) Hospital 7680205(SN Repository OMED CT) 07/12/2018 Drug tetracycline/U84072 Swelling Unknown [facility] Allergy/41 2738(RXNORM) Hospital 7119068(SN Repository OMED CT) 07/12/2018 Drug vancomycin/[id number] Hives Unknown [facility] Allergy/41 66(RXNORM) Hospital 8731468(SN Repository OMED CT) 07/12/2018 Drug topiramate/H6147295 Other Unknown [facility] Allergy/41 53(RXNORM) Hospital 6104137(SN Repository OMED CT) 06/03/2015 DRUG PHENYTOIN SODIUM GI UPSET [facility] INGREDI/41 EXTENDED Other [place] 1171373(SN Repository OMED CT) 05/13/2015 Drug FISH CONTAINING UNKNOWN [facility] Class/4195 PRODUCTS Other [place] 24567(SNOM Repository ED CT) 05/13/2015 DRUG SHRIMP UNKNOWN [facility] INGREDI/41 Other [place] 4847399(SN Repository OMED CT) 05/21/2009 DRUG TOPIRAMATE Mental Chg [facility] INGREDI/41 Other [place] 4648313(SN Repository OMED CT) 02/03/2008 DRUG HALOPERIDOL Mental Chg Low [facility] INGREDI/41 Other [place] 0675874(SN Repository OMED CT) 05/17/2007 Drug SULFA (SULFONAMIDE GI UPSET [facility] Class/4195 ANTIBIOTICS) Other [facility] 28635(SNOM Repository ED CT) 01/07/2006 DRUG CELLACEFATE SWELLING [facility] INGREDI/41 Other [place] 7766269(SN Repository OMED CT) 01/07/2006 DRUG DIVALPROEX SODIUM GI UPSET [facility] INGREDI/41 Other [place] 0364719(SN Repository OMED CT) 01/07/2006 DRUG PENICILLIN G GI UPSET [facility] INGREDI/41 Other [place] 5864979(SN Repository OMED CT) 12/13/2003 DRUG CARBAMAZEPINE [facility] INGREDI/41 System Repository 4151921(SN OMED CT) 12/13/2003 Drug PENICILLINS [facility] Class/4195 System Repository 68518(SNOM ED CT) 12/13/2003 Drug SULFONYLUREAS [facility] Class/4195 System Repository 20122(SNOM ED CT) 12/13/2003 DRUG TETRACYCLINE [facility] INGREDI/41 System Repository 3344612(SN OMED CT) 12/13/[address] AC[facility] System Rep[facility] 4705466(SN OMED CT) 12/13/2003 Drug VANCOMYCIN [facility] Class/4195 System Repository 02796(SNOM ED CT) 12/13/2003 Drug PENICILLINS UNKNOWN [facility] Class/4195 Other [place] 56750(SNOM Repository ED CT) 12/13/2003 Drug SULFONYLUREAS UNKNOWN [facility] Class/4195 Other [place] 73287(SNOM Repository ED CT) 12/13/2003 DRUG CARBAMAZEPINE GI UPSET [facility] INGREDI/41 Other [place] 7245829(SN Repository OMED CT) 12/13/2003 DRUG TETRACYCLINE HIVES [facility] INGREDI/41 Other [place] 6673549(SN Repository OMED CT) 12/13/2003 DRUG VALPROIC ACID UNKNOWN [facility] INGREDI/41 Other [place] 2696042(SN Repository OMED CT) 12/13/2003 DRUG VANCOMYCIN HIVES [facility] INGREDI/41 Other [place] 7065755(SN Repository OMED CT) DRUG/07897 DIVALPROEX OTHER: SEE C [facility] 1003(SNOME Main [place] D CT) Repository DRUG PENICILLIN SWELLING [facility] INGREDI/41 Main [place] 5811041(SN Repository OMED CT) DRUG/48399 SULFAMETHOXAZOLE-TR UNKNOWN [facility] 1003(SNOME IMETHOPRIM Main [place] D [facility]) Repository ENCOUNTERS ENCOUNTERS ADMIT/DISCHARGE ACCOUNT NUMBER ADMITTING ENCOUNTER LOCATION SOURCE CLASS 07/23/2018/07/26/20 [id number] CASTELLANOS, AMARI Inpatient [place] 18 R Encounter Clinic Main [place] Repository 07/22/2018/07/23/20 [id number] Ambulatory [place] [address] ing:[facility] EMERGENCYRoo Repository m: VICENTEBed: [id number] 07/12/2018/07/12/20 [id number] Emergency [address] ding:ED Repository 07/11/2018/07/11/20 [id number] Emergency [address] ding:ED Repository 07/05/2018/07/05/20 [id number] CASTELLANOS, AMARI Ambulatory [place] [address] R [facility] Main [place] Repository 06/29/2018/07/11/20 [id number] CASTELLANOS, AMARI Inpatient [place] [address] R [facility] Main [place] Repository 06/29/2018/06/29/20 [id number] Ambulatory [address] Main [place] Repository 06/29/2018/06/29/20 [id number] Ambulatory [address] Main [place] Repository 06/12/2018/06/13/20 [id number] Ambulatory [place] [facility] Main [place] Repository 06/02/2018/06/05/20 [id number] Ambulatory [place] [address] Clinic Main [place] Repository 05/25/2018/05/30/20 [id number] Ambulatory [place] [facility] Main [place] Repository 05/24/2018/05/24/20 [id number] Ambulatory [place] [facility] Main [place] Repository 05/24/2018/05/25/20 [id number] Ambulatory [place] [address] Clinic Main [place] Repository 05/24/2018/05/24/20 [id number] Ambulatory [place] [facility] Main [place] Repository 05/22/2018/05/23/20 [id number] Ambulatory [place] [facility] Main [place] Repository 04/28/2018/04/28/20 [id number] Ambulatory [place] [facility] Main [place] Repository 04/06/2018/04/10/20 [id number] Ambulatory [place] [address] Clinic Main [place] Repository 03/27/2018/03/28/[id number] Jerzy [facility]patient [facility] [address] Encounter SM1Tdtk: [facility] [place] [id number]: Repository [id number] 03/27/2018/03/28/20 [id number] Ambulatory [address] Main [place] Repository 03/24/2018/08/11 [id number] Emergency [address] [place] Repository 02/25/2018 [id number] JOSHRYAN KUMAR Ambulatory [facility] [place] Repository 01/24/2018 [id number] Ambulatory [facility] Repository 01/24/2018 [id number] MELANIE Ambulatory [place] CINDY ROSS [facility] [place] Repository 01/02/2018/01/04/20 [id number] Ambulatory [address] Repository 12/22/2017/12/29/[id number] Sugey Inpatient [facility] [place] [address] Flakito Chengsanchez Encounter N1ZLzgg: Hospitals [id number]: Repository [id number] 12/21/2017/12/23/19 [id number] Ambulatory [address] Repository 12/19/[id number] Repository 12/02/2017/12/20/[id number] Repository 11/23/2017/11/25/19 [id number] Emergency [address] Repository 11/18/2017 [id number] KOBE, MANA [facility] Repository 11/12/2017/11/13/19 [id number] JOSE [address] Repository 11/10/2017/11/11/19 [id number] Unknown [facility] 56Room: System ED 10 Repository 11/10/2017 [id number] Unknown [facility]ulatory [facility] Repository 11/09/2017/11/11/19 [id number] Unknown Emergency [facility] 56Room: System ED 9Bed: Repository ED 10/31/2017/11/02/19 [id number] Ambulatory [address] Repository 10/11/2017/10/11/19 [id number] Unknown [facility] 56Room: System ED 1Bed: Repository ED 10/06/2017/10/11/19 [id number] Ambulatory [address] Repository 09/05/2017/01/23 [id number] Emergency [address] Other [place] Repository 08/31/2017/09/05/19 [id number] Ambulatory [address] Main [place] Repository PAYERS PAYERS ENCOUNTER GUARANTOR PAYER SUBSCRIBER SOURCE 07/22/2018 EDGARDO Foss [facility]: [facility] Rep[facility] icy Number: [id number] [place] [id number] [place], [place] Date:Plan Name:[place], [place] [address]Jfh: 216) [address]Jip: (HP) [address]UTPJTKPEG, [place] [phone] (HP) [id number]: 07/22/2018 Secondary EDGARDO [facility] Insurance:MEDICAREPol MCGILLDOB: System Repository icy Number: [id number] 0 [place] Date:Plan Name:[place], [place] [address] [address]Zrx: [phone] [address]YRALPXISV, [place] [phone] (HP) [id number]: 07/12/2018 EDGARDO Foss Primary EDGRADO Foss [place] [id number] Insurance:MEDICARE MCGILLDOB: Hospital CONCONULLY PART A BPolicy [id number] Repository [place], [place] Number: [id number]: 234 [id number] [phone] (HP) Date:2018-07-12 07/12/2018 Secondary NOT GIVENUNK [facility] Insurance:SELF PAY Hospital INSURANCEPolicy Repository Number: Effective Date:2018-07-12 07/11/2018 EDGARDO Foss Primary EDGARDO Foss [place] [id number] Insurance:MEDICARE MCGILLDOB: Hospital CONCONULLY PART A BPolicy [id number] Repository [place], [place] Number: [id number]: 234 [id number] [phone] (HP) Date:2018-07-11 07/11/2018 Secondary NOT GIVENUNK [facility] Insurance:SELF PAY Hospital INSURANCEPolicy Repository Number: Effective Date:2018-07-11 03/27/2018 EDGARDO [facility]: Insurance:MedicarePol MCGILLDOB: Hospitals icy Number: [id number] Repository [place] [id number] 8 [place], [place] Date:6310-03-86Bsdg [place], [place] [address]Msv: (216) Name:Skyler Mehta [address]Xrf: (HP) (HP) 03/27/2018 [facility] Insurance:MedicarePol MCGILLDOB: Hospitals icy Number: [id number] Repository [id number] 8 [place] Date:4569-97-26Jdeh [place], [place] Name:Skyler Nguyen [address]Qwf: (HP) 12/22/2017 [facility]: Insurance:MedicarePol MCGILLDOB: [facility] icy Number: [id number] Repository [place] [id number] 8 [place], [place] Date:7642-56-47Wayv [place], [place] [address]Idt: (216) Name:Skyler Mehta [address]Kfd: (HP) (HP) 12/22/2017 [facility] Insurance:MedicarePol MCGILLDOB: Hospitals icy Number: [id number] Repository [id number] 8 [place] Date:1942-96-66Cyzs [place], [place] Name:Skyler Nguyen [address]Dfj: (HP) 12/19/2017 [facility]: Insurance:[facility]: Hospitals olicy Number: [id number] Repository [place] [id number] 8 [place], [place] Date:1760-27-19Bvxm [place], [place] [address]Njq: (216) Name:[facility] [address]Yie: (HP) (HP) 11/10/2017 [facility]ARE MCGILLDOB: System Repository PART APolicy Number: [id number] [place] [id number] [address] [place], Date:2001-04-[address] [place] [place], [place] [address]Oyr: [place] [address]Ond: (HP) (HP) 11/10/2017 Secondary EDGARDO L [facility] Insurance:MEDICARE MCGILLDOB: System Repository PART APolicy Number: [id number] 0 [place] Date:2001-04-15 [place], [place] [address]Xdj: (HP) 11/10/2017 EDGARDO L Primary EDGARDO L [facility]: Insurance:MEDICARE MCGILLDOB: System Repository PART APolicy Number: [id number] [place] [id number] 0 [place], Date:2001-04-[address] [place] [place], [place] [address]Qhl: [place] [address]Kij: (HP) (HP) 11/10/2017 Secondary EDGARDO L [facility] Insurance:MEDICARE MCGILLDOB: System Repository PART APolicy Number: [id number] 0 [place] Date:2001-04-15 [place], [place] [address]Quj: (HP) 11/09/2017 EDGARDO L Primary EDGARDO L [facility]: Insurance:MEDICARE MCGILLDOB: System Repository PART APolicy Number: [id number] [place] [id number] 0 [place], Date:2001-04-[address] [place] [place], [place] [address]Dra: [place] [address]Rwb: (HP) (HP) 11/09/2017 Secondary EDGARDO L [facility] Insurance:MEDICARE MCGILLDOB: System Repository PART APolicy Number: [id number] 0 [place] Date:2001-04-15 [facility] [place], [place] [address]Tsb: (HP) 10/11/2017 EDGARDO Foss Primary EDGARDO Foss [facility]: Insurance:MEDICARE MCGILLDOB: System Repository PART APolicy Number: [id number] [place] [id number] 0 [place] [facility] [place], Date:2001-04-15 [facility] [place], [place] [address]Qsh: [place] [address]Cic: (HP) (HP) 10/11/2017 Secondary EDGARDO Foss [facility] Insurance:MEDICARE MCGILLDOB: System Repository PART APolicy Number: [id number] 0 [place] Date:2001-04-15 [facility] [place], [place] [address]Xlq: (HP)
== END 2018-07-11 23:45 | disposition home or self-care (01) ==
PROVIDERS: Emergency Provider Emergency Medicine
DX: R07.89 Other chest pain (principal); F17.200 Nicotine dependence, unspecified, uncomplicated; Z86.711 Personal history of pulmonary embolism; Z79.01 Long term (current) use of anticoagulants
CPT/HCPCS: 36415; 71045; 80048; 84484; 85025; 85610; 93005; 99284

== ENCOUNTER 2018-07-12 07:03 | Emergency (ER) | payer MEDICARE, SELFPAY ==
[2018-07-11 20:25] VITALS: BMI 21.2
[2018-07-12 07:04] VITALS: BP 116/74; PULSE 109; RESP 14; TEMP 36.8; O2SAT 95; BMI 24.6
[2018-07-12] MEDS: Ondansetron ODT 4 MG Tablet 8 MG PO (07:36)
[2018-07-12] MEDS: Mag Hydrox/Al Hydrox/Simeth 30 ML UDC PO (07:36)
--- NOTE | 2018-07-12 08:49 | ED.RN ---
attempted to reach Daughter on cell listed and unable to reach. message left to have her call ER.
--- NOTE | 2018-07-12 09:10 | ED.VISSUMM ---
- ER Visit Summary Date of Service: 07/12/18 Chief Complaint: Nausea, vomiting, and diarrhea History of Present Illness: The patient is a 52 F with nausea, vomiting, and diarrhea that started around 5 AM this morning. According to prior records, patient was seen last night for chest pain. Her workup was negative and she was discharged. She could not get a hold of her daughter and stay in the hospital overnight. She checked back in this morning because she started to have nausea, vomiting, and diarrhea. She had multiple episodes since 5 AM. No bleeding. No abdominal pain. No other associated symptoms. Patient was recently admitted to the [facility] EMU where she was monitored for an extended period of time for possible seizure activity. She had no episodes of seizures while there. She tells me that she did have low blood pressures in the 70s. She normally runs in the 90s. She recently relocated to the [facility] and was staying with her daughter. Her daughter made her come to the ED last night for evaluation. She was told that if she did not come, she would not be able to see her grandchildren. She has been trying to call her daughter overnight last night and this morning has not been able to get a hold of her. Physical Examination: Afebrile and vital signs unremarkable except for heart rate 109. The patient is alert and oriented and in no acute distress. Skin appears normal. She is sitting comfortably. Heart regular rate and rhythm on my exam. Lungs clear throughout. Abdomen soft and nontender. No guarding or rebound. Patient is drinking from a bottle of diet Pepsi. Test Results: I reviewed her records from her visit last night. Her CBC, BMP, troponin, and chest x-ray were unremarkable. There is no indication for further testing at this time. Emergency Department Course and Treatment: Patient was treated with a GI cocktail and Zofran. Her history and exam were reassuring. She had normal labs last night, and I do not suspect that they would have changed this morning, and so they were not repeated. There is no indication for abdominal or other imaging. Patient was treated and we will observe. On reevaluation, she is stable. Vitals are stable and heart rate is improved. No further vomiting or diarrhea. I believe the patient is appropriate for outpatient care and will prescribe Zofran. We will have the social problems specialist talk to her about her living situation with her daughter and how we can get her home. There is no indication for further care, testing, or hospitalization. The patient will be discharged. Return for any new or worsening issues. Treatment Plan: As above Disposition: Discharge Impression: 1. Nausea and vomiting 2. Diarrhea This note was generated with [employer] dictation software. It may contain incorrect words, spelling, and punctuation that were not noted in review of the chart prior to signing ED Disposition - Plan for ED Patient: Chief Complaint: Nausea/Vomiting/Diarrhea Referrals: Care Physician,No Primary [Primary Care Provider] -
--- NOTE | 2018-07-12 09:15 | ED.DCSUM_ITS ---
- ER Visit Summary Date of Service: 07/12/18 Chief Complaint: Nausea, vomiting, and diarrhea History of Present Illness: The patient is a 52 F with nausea, vomiting, and diarrhea that started around 5 AM this morning. According to prior records, patient was seen last night for chest pain. Her workup was negative and she was discharged. She could not get a hold of her daughter and stay in the hospital overnight. She checked back in this morning because she started to have nausea, vomiting, and diarrhea. She had multiple episodes since 5 AM. No bleeding. No abdominal pain. No other associated symptoms. Patient was recently admitted to the [facility] EMU where she was monitored for an extended period of time for possible seizure activity. She had no episodes of seizures while there. She tells me that she did have low blood pressures in the 70s. She normally runs in the 90s. She recently relocated to the [facility] and was staying with her daughter. Her daughter made her come to the ED last night for evaluation. She was told that if she did not come, she would not be able to see her grandchildren. She has been trying to call her daughter overnight last night and this morning has not been able to get a hold of her. Physical Examination: Afebrile and vital signs unremarkable except for heart rate 109. The patient is alert and oriented and in no acute distress. Skin appears normal. She is sitting comfortably. Heart regular rate and rhythm on my exam. Lungs clear throughout. Abdomen soft and nontender. No guarding or rebound. Patient is drinking from a bottle of diet Pepsi. Test Results: I reviewed her records from her visit last night. Her CBC, BMP, troponin, and chest x-ray were unremarkable. There is no indication for further testing at this time. Emergency Department Course and Treatment: Patient was treated with a GI cocktail and Zofran. Her history and exam were reassuring. She had normal labs last night, and I do not suspect that they would have changed this morning, and so they were not repeated. There is no indication for abdominal or other imaging. Patient was treated and we will observe. On reevaluation, she is stable. Vitals are stable and heart rate is improved. No further vomiting or diarrhea. I believe the patient is appropriate for outpatient care and will prescribe Zofran. We will have the psychosocial rehabilitation counselor talk to her about her living situation with her daughter and how we can get her home. There is no indication for further care, testing, or hospitalization. The patient will be discharged. Return for any new or worsening issues. Treatment Plan: As above Disposition: Discharge Impression: 1. Nausea and vomiting 2. Diarrhea This note was generated with [employer] dictation software. It may contain incorrect words, spelling, and punctuation that were not noted in review of the chart prior to signing ED Disposition - Plan for ED Patient: Chief Complaint: Nausea/Vomiting/Diarrhea Referrals: Care Physician,No Primary [Primary Care Provider] -
--- NOTE | 2018-07-12 09:15 | ED.DEP ---
ED Disposition - Plan for ED Patient: Chief Complaint: Nausea/Vomiting/Diarrhea Instructions: ED Vomiting Diarrhea Nonspecific Ad Prescriptions: Ondansetron [Zofran Odt] 4 mg PO Q8H PRN PRN #10 tab PRN Reason: Nausea Referrals: Greta Collazo DO [STAFF PHYSICIAN] -
--- NOTE | 2018-07-12 09:23 | CM.ED ---
Social Work Note Referral from RN as pt was discharged at 2200 07/11 and has stayed the night because she does not know her address and no one can contact the daughter. Face to face with the pt. Introduced self and role at [facility]. Per the pt she is from [place] and was just released 07/11 from [facility]'s EMU. Was in EMU for the last two weeks. Reports that she was told if her BP increased she needed to go to an ED and so the pt's daughter dropped her off here. She reports that she has a good relationship with her daughter and denied having any arguments or disagreements with her yesterday. Claims that her daughter had a tough day, and has to get a hysterectomy. States that she moved down here from [place] to help her daughter, and she will be the one renting the home that they reside in. She does not know the landlord's name, or the address of the home. States that her daughter moved down here because her boyfriend has family down here. Reports that her grandchildren are not down here yet, and are staying with family in [place]. She received disability following a work incident in December of 1996 that injured her leg and resulted in MRSA and sepsis. Denies having additional coverage other than Medicare. Will continue to attempt to contact daughter. Without and address or landlord's name cannot move forward with getting pt home. Placed call to Doris Reyes and left 2 voicemails requesting a return phone call. CHARITO Adorno, HAILE
[2018-07-12 09:33] VITALS: BP 120/80; PULSE 105; RESP 17; O2SAT 95
--- NOTE | 2018-07-12 09:36 | ED.RN ---
This nurse attempted to reach the patient's daughter again without results. Message left. phone given to the patient to attempt calling yourself.
[2018-07-12] MEDS: Loperamide 2 MG Capsule 4 MG PO (10:03)
[2018-07-12 10:14] VITALS: PULSE 104; RESP 17; O2SAT 97
--- NOTE | 2018-07-12 10:15 | CM.ED ---
Social Work Note Face to face with the pt again. Inform that she cannot stay in the ED all day again. She denies having any family or supports in [place] to contact, and claims that she still has not been able to reach her daughter. She denies having her ID with her which means she cannot go to a senior care. Pt being discharged and packing up belongings. This typewriter operator automatic and other ED staff have made multiple calls and left multiple voicemails requesting return phone calls. CHARITO Adorno, HAILE
--- NOTE | 2018-07-12 11:31 | CM.ED ---
Social Work Note Nadine, Resource Officer, assisting. Placed call to Doris and she picked up. Confirmed that the address was [address] [place] [address]. Nadine requesting that an officer verify someone is there. Could not verify with Doris that the pt would be able to get into the home as she was disconnected. Nadine contacted [place] [employer] to check on address listed in [place]. Placed call to [facility] to verify that pt was there and they will not release information without an authorization form and then report that it would take 7-10 days for processing. Requesting that pt personally call and request records be faxed to [facility] at [phone]. Explain to pt that this automatic typewriter inspector briefly spoke with the pt's daughter before getting cut off and she states she will try to call her as well. Pamella Logan, ROAD PASSENGER FIRER, HAILE
--- NOTE | 2018-07-12 12:20 | ED.RN ---
Spoke with patient's daughter. She verified she had no vehicle and would pick-up pt in two hours. Verified pt has ride arriving at approx 1400.
--- NOTE | 2018-07-12 12:27 | CM.ED ---
Social Work Note Spoke face to face with pt again and she reports that she spoke with Doris who gave her the number of [id number]. Placed call to Doris who now states this is the number they are at, although she gave [phone] to this SW earlier. Nadine contact's SO and they are going to check and verify Doris is there before we transport pt home d/t weather conditions. Pt updated. Will await confirmation from Nadine that the address has been verified. Pamella Logan, MASON TENDER RESTORATION LABOR, HAILE
--- NOTE | 2018-07-12 12:28 | ED.RN ---
Informed pt I had spoke with her daughter and they would be here at 1400 to picl her up. I offered to order her a lunch tray which she refused.
--- NOTE | 2018-07-12 12:47 | CM.ED ---
Addendum entered by Pamella Logan 07/12/18 13:48: Confirmed address is [address] [place], [place]. Original Note: Social Work Note Call from Nadine verifying that [address] [facility] [address] is the correct address. Also reports that according to the deputy that checked the house Doris states that she and her boyfriend live there, her mother does not and that she has family in [place] that she needs to contact. Reports that Doris communicated she and the boyfriend would be coming to the hospital to pick her up. Pt notified. Will discharge with daughter. Pamella Logan, CHARITO, HAILE
--- NOTE | 2018-07-12 14:48 | CM.ED ---
Social Work Note Pt still here. Doris has not arrived to pick her up. Placed two calls to Doris with no success. Placed call to Sergeant Spann with [place] [employer] [phone] ext [phone]. Left vm updating. Will continue to follow and assist as needed. Pamella Logan, METROLOGY SPECIALIST, HAILE
--- NOTE | 2018-07-12 17:11 | ED.RN ---
Pt still in waiting room. Her daughter was to pick her up at 1400.
--- NOTE | 2018-07-12 17:52 | ED.RN ---
Pt was picked up by Gillian luther/
--- NOTE | 2018-07-12 18:21 | CM.ED ---
Social Work Note Updated SS Mobile Home Installer, Hanna Santamaria. Face to face with pt again who confirms she does not have her ID with her. States that her daughter did not come to pick her up at 1400 because someone had threatened to call [employer] and she was upset with the pt now. Pt reports that the daughter is going to send a Lyft to the ED for $73. Express the concern as the pt's daughter was supposedly sending a auto crane driver last night, and no one ever came. Claims that the pt will contact the nurses station with a time for pickup. Doris called and spoke with Vivek. Stated that the auto crane driver would be to [facility] in ten minutes. Doris made aware that if the Lyft was not here in ten minutes the pt would be staying at the [facility]. Nadine HRO, spoke with Doris and informed that she would be making a report to [facility] at [phone]. Pt reports that she will be taken to her daughter's friend's house, Tonja. Tonja resides at the [address] [place] [address] address on the demo sheet. Confirm with the auto crane driver that he is taking the pt to [place] at another address. Pt confirms that she does feel safe returning to where her daughter is. Claims she recognizes the address, but does not know the name of the individual. Pt discharged from [facility]. PLAN: Return to [place], [place]. CHARITO Adorno LISW
--- OUTSIDE RECORDS SUMMARY | 2018-09-06 11:55 | XMS RPT_ITS ---
:1965 Author Organization [facility] Care Team Providers Name Role Phone RYAN CASTANO Attending Unavailable CASTELLANOSCHERI FAUSTINEP R Admitting Unavailable CASTELLANOSAMARI FAUSTIN R Attending Unavailable ZEKE BELLO Referring Unavailable CASTELLANOS, AMARI R Admitting Unavailable NEME MERCANTE, DARLEEN Attending Unavailable NEME MERCANTE, DARLEEN Referring Unavailable CASTELLANOS, AMARI R Admitting Unavailable ORTIZ, LILO Referring Unavailable NEME MERCANTE, DALREEN Attending Unavailable THADDEUS PRUITT (PA) Attending Unavailable ORTIZ, LILO Referring Unavailable ORTIZ, LILO Referring Unavailable CADESKY, RYAN Attending Unavailable YARIELDENAE NARANJO (FAST BRIM POUNCER) Referring Unavailable ORTIZ, LILO Referring Unavailable MELANIE WEBSTER Attending Unavailable CADESKY, RYAN Attending Unavailable CADESKY, RYAN Attending Unavailable MUSHKAT CONOMY, CINDY H Attending Unavailable CADESKY, RYAN Attending Unavailable CHANTALRAYMOND Zelaya Attending Unavailable CADESKY, RYAN Referring Unavailable CADESKY, RYAN Attending Unavailable CADESKY, RYAN Attending Unavailable CADESKY, RYAN Attending Unavailable CADESKY, RYAN Attending Unavailable ORTIZ, LILO Attending Unavailable CADESKY, RYAN Referring Unavailable MILK, BEST SAUL Attending Unavailable OLASOKAN, OLAPEJU Admitting Unavailable OLASOKAN, OLAPEJU Attending Unavailable AUSTIN PAGE Consulting Unavailable KOBE, MANA Admitting Unavailable KOBE, MANA Attending Unavailable EULALIA VO Attending Unavailable MUSHKAT CONOMY, CINDY H Admitting Unavailable MUSHKAT CONOMY, CINDY H Attending Unavailable CADESKY, RYAN Admitting Unavailable CADESKY, RYAN Attending Unavailable MILK, BEST SAUL Attending Unavailable Mykel Boogie Attending Unavailable Primay [...] Primary Care Unavailable TY DASILVA Attending Unavailable Dr. Farooq Bolivar Attending Unavailable *SELF, REFERRED Referring Unavailable Podl, Tod Americo Primary Care Unavailable Podl, Tod Americo Primary Care Unavailable Sugey, Dr. Flakito Goodman Admitting Unavailable Sugey, Dr. Flakito Goodman Attending Unavailable Gilsonca, Dr. Flakito Goodman Referring Unavailable Podl, Tod Americo Primary Care Unavailable Bertrand, Dr. Greyson Quezada Admitting Unavailable Bertrand, Dr. Greyson Quezada Attending Unavailable Bertrand, Dr. Greyson Quezada Referring Unavailable PROBLEMS PROBLEMS DATE TYPE CONDITION / CODE ATTENDING STATUS SOURCE 07/03/2018 Active Chronic pain CASTELLANOS, AMARI R [facility] syndrome / [place] G89.4(ICD-10) Repository 06/05/2015 Active Mental disorder, CASTELLANOS, AMARI R [facility] not otherwise [place] specified / Repository F99(ICD-10) 07/23/2018 Active Unspecified CASTELLANOS, AMARI R [facility] convulsions / [place] R56.9(ICD-10) Repository 07/23/2018 Active Syncope and CASTELLANOS, AMARI R [facility] collapse / [place] R55(ICD-10) Repository 07/23/2018 Active Embolism and CASTELLANOS, AMARI R [facility] thrombosis of [place] unspecified artery Repository / I74.9(ICD-10) 07/23/2018 Active Hypokalemia / CASTELLANOS, AMARI R [facility] E87.6(ICD-10) [place] Repository 07/22/2018 Admitting Unspecified BROWN, Active [facility] [...] 07/22/2018 Final Diagnosis Major depressive BROWN, Active [facility] (Discharge) disorder, single [facility] episode, Repository unspecified / F32.9(ICD-10) 07/22/2018 Final Diagnosis Other epilepsy, not BROWN, Active [facility] (Discharge) intractable, [facility] without status Repository epilepticus / G40.802(ICD-10) 07/22/2018 Final Diagnosis Nicotine BROWN, Active [facility] (Discharge) dependence, [facility] cigarettes, Repository uncomplicated / F17.210(ICD-10) 07/22/2018 Final Diagnosis Prsnl hx of TIA BROWN, Active [facility] (Discharge) (TIA), 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[facility] 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 Repository deficits / Z86.73(ICD-10) 07/22/2018 Final Diagnosis Personal history of BROWN, Active [facility] (Discharge) urinary (tract) [facility] infections / Repository Z87.440(ICD-10) 07/22/2018 Final Diagnosis Personal history of BROWN, Active [facility] (Discharge) methicillin resis [facility] staph infection / Repository Z86.14(ICD-10) 07/22/2018 Final Diagnosis Personal history of BROWN, Active [facility] (Discharge) pulmonary embolism [facility] / Z86.711(ICD-10) Repository 07/22/2018 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, 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 of [facility] anticoagulants / Repository Z79.01(ICD-10) 07/22/2018 Final Diagnosis Other rn long term care BROWN, Active [facility] (Discharge) (current) drug [facility] therapy / Repository Z79.899(ICD-10) 07/22/2018 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, 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 [facility] (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 of opiate [facility] analgesic / Repository Z79.891(ICD-10) 07/22/2018 Final Diagnosis Personal history of BROWN, Active [facility] (Discharge) other diseases of [facility] the digestive Repository system / Z87.19(ICD-10) 07/22/2018 Final Diagnosis Family hx of ischem BROWN, Active [facility] (Discharge) heart dis and oth [facility] dis of the circ sys Repository / Z82.49(ICD-10) 07/22/2018 Final Diagnosis Family history of BROWN, Active [facility] (Discharge) diabetes mellitus / [facility] Z83.3(ICD-10) Repository 07/22/2018 Final Diagnosis Family history of BROWN, Active [facility] (Discharge) malignant neoplasm [facility] of testis / Repository Z80.43(ICD-10) 07/22/2018 Final Diagnosis Family history of BROWN, Active [facility] (Discharge) malignant neoplasm [facility] of kidney / Repository Z80.51(ICD-10) 07/22/2018 Revised Unspecified BROWN, Active [facility] Diagnosis abdominal pain / [facility] R10.9(ICD-10) Repository 06/29/2018 Active Unknown / NA Active [facility] UNK(Unknown) [place] Repository 05/24/2018 Active Other specified NA [facility] symptoms and signs [place] involving the Repository circulatory and respiratory systems / R09.89(ICD-10) 03/28/2018 Unknown Major depressive Jerzy, Dr. Lolita Vidal disorder, single [facility] episode, Repository unspecified / F32.9(ICD-10) 03/28/2018 Unknown Epilepsy, unsp, not Ebrtrand, Dr. Lolita Vidal intractable, [facility] without status Repository epilepticus / G40.909(ICD-10) 03/28/2018 Unknown Fibromyalgia / Jerzy, Dr. Mchugh Simpson M79.7(ICD-10) [facility] Repository 03/28/2018 Unknown Personal history of Jerzy, Dr. Lolita Vidal pulmonary embolism [facility] / Z86.711(ICD-10) Repository 03/28/2018 Unknown Prsnl hx of TIA Dr. Lolita Bertrand (TIA), and cereb [facility] 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 Repository deficits / Z86.73(ICD-10) 03/28/2018 Unknown Acquired absence of Jerzy, Dr. Lolita Vidal other specified [facility] parts of digestive Repository tract / Z90.49(ICD-10) 03/28/2018 Unknown Personal history of Dr. Lolita Bertrand other venous [facility] thrombosis and Repository embolism / Z86.718(ICD-10) 03/28/2018 Admitting Syncope and BertrandDr. Lolita diagnosis collapse / [facility] R55(ICD-10) Repository 03/28/2018 Unknown Syncope and Bertrand, Active [facility] collapse / [facility] R55(ICD-10) Repository 03/28/2018 Unknown Opioid dependence, Bertrand, [facility] uncomplicated / [facility] F11.20(ICD-10) Repository 03/28/2018 Unknown Complex regional Bertrand, [facility] pain syndrome I of [facility] other specified Repository site / G90.59(ICD-10) 03/28/2018 Unknown Dorsalgia, Bertrand, [facility] unspecified / [facility] M54.9(ICD-10) Repository 03/28/2018 Unknown Nicotine Bertrand, Active [facility] dependence, [facility] unspecified, Repository uncomplicated / F17.200(ICD-10) 03/28/2018 Unknown Anxiety disorder, Bertrand, [facility] unspecified / [facility] F41.9(ICD-10) Repository 03/28/2018 Unknown Chronic obstructive Bertrand, [facility] pulmonary disease, [facility] unspecified / Repository J44.9(ICD-10) 03/28/2018 Unknown Unspecified BertrandDr. akilah Active [facility] abdominal pain / [facility] R10.9(ICD-10) Repository 03/28/2018 Unknown Diplopia / Bertrand, [facility] H53.2(ICD-10) [facility] Repository 03/28/2018 Unknown Unspecified BertrandDr. akilah [facility] osteoarthritis, [facility] unspecified site / Repository M19.90(ICD-10) 03/28/2018 Unknown Personal history of Dr. 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, Repository unspecified / M35.9(ICD-10) 09/16/2017 Active Delusional MILK, BEST Active [facility] disorders / ISABELLA [place] F22(ICD-10) Repository 03/24/2018 Active Unspecified MILK, BEST Active [facility] abdominal pain / [place]A [place] R10.9(ICD-10) Repository 03/24/2018 Active Diplopia / MILK, BEST Active [facility] H53.2(ICD-10) ISABELLA [place] Repository 03/24/2018 Active Transient MILK, BEST [facility] alteration of ISABELLA [place] awareness / Repository R40.4(ICD-10) 03/24/2018 Active Emphysema, MILK, BEST [facility] unspecified / [place]A [place] J43.9(ICD-10) Repository 12/28/2017 Admitting Ileus, unspecified Gilsonca, Active [facility] diagnosis / K56.7(ICD-10) [facility] Repository 12/28/2017 Unknown Ileus, unspecified Donca, Active [facility] / K56.7(ICD-10) [facility] Repository 12/28/2017 Unknown Toxic Donca, Active [facility] encephalopathy / [facility] G92(ICD-10) Repository 12/28/2017 Unknown Hematemesis / Donca, Active [facility] K92.0(ICD-10) [facility] Repository 12/28/2017 Unknown Chronic obstructive Sguey, Active [facility] pulmonary disease w [facility] (acute) Repository exacerbation / J44.1(ICD-10) 12/28/2017 Unknown Other chronic pain Suegy, Active [facility] / G89.29(ICD-10) [facility] Repository 12/28/2017 Unknown Migraine, unsp, not Donca, Active Mar[facility] intractable, [facility] without status Repository migrainosus / G43.909(ICD-10) 12/28/2017 Unknown Post-traumatic Sugey, Active [facility] stress disorder, [facility] unspecified / Repository F43.10(ICD-10) 12/28/2017 Unknown Oth disrd involving Donca, Active Simpson the immune [facility] mechanism, NEC / Repository D89.89(ICD-10) 12/28/2017 Unknown Hypokalemia / Donca, Active Simpson E87.6(ICD-10) [facility] Repository 12/28/2017 Unknown Other specified Donca, Active [facility] anxiety disorders / [facility] F41.8(ICD-10) Repository 12/28/2017 Unknown Anorexia / Donca, Active Simpson R63.0(ICD-10) [facility] Repository 12/28/[address] Lolita Mayes dependence, [facility] cigarettes, Repository uncomplicated / F17.210(ICD-10) 12/28/2017 Unknown Insomnia, Dr. Lolita Mayes unspecified / [facility] G47.00(ICD-10) Repository 12/28/[address] Unknown [address] effect of [address] Lolita Mayes unspecified [facility] narcotics, initial Repository encounter / T40.605A(ICD-10) 12/28/2017 Unknown Other coma, without Sugey, Dr. Lolita Vidal [place], or w/part [facility] score, 24+hrs / Repository R40.2444(ICD-10) 12/28/[address] Lolita Mayes disorder, single [facility] episode, in full Repository remission / F32.5(ICD-10) 12/28/2017 Unknown Repeated falls / Dr. Lolita Mayes R29.6(ICD-10) [facility] Repository 12/28/2017 Unknown [address]verse effect of Dr. Lolita Mayes other synthetic [facility] narcotics, init Repository encntr / T40.4X5A(ICD-10) 12/28/2017 Unknown Adverse effect of Dr. Lolita Mayes other opioids, [facility] initial encounter / Repository T40.2X5A(ICD-10) 12/28/2017 Unknown Patient room in Dr. Lolita Mayes hospital as place / [facility] Y92.230(ICD-10) Repository 12/28/2017 Unknown Other care home Dr. 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 Lolita Mayes (BMI) 22.0-22.9, [facility] adult / Repository Z68.22(ICD-10) 12/28/2017 Unknown Presence of other Dr. Lolita Mayes vascular implants [facility] and grafts / Repository Z95.828(ICD-10) 12/28/2017 Unknown [address] of [address] Sugey Active [facility] methicillin resis [facility] staph infection / Repository Z86.14(ICD-10) 12/28/2017 Unknown [facility] (current) Dr. Sugey Active Simpson use of [facility] anticoagulants / Repository Z79.01(ICD-10) 11/23/2017 Active Generalized GILDA, Active [facility] enlarged lymph [facility] Other [place] nodes / Repository R59.1(ICD-10) 11/23/2017 Active Insomnia, GILDA, Active [facility] unspecified / [facility] Other [place] G47.00(ICD-10) Repository 11/12/2017 Active Epilepsy, OLASOKAN, Active [facility] unspecified, not OLAPEJU Other [place] intractable, Repository without status epilepticus / G40.909(ICD-10) 11/12/2017 Active Opioid dependence, OLASOKAN, Active [facility] uncomplicated / OLAPEJU Other [place] F11.20(ICD-10) Repository 11/12/2017 Active Chronic embolism OLASOKAN, 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 / Repository I82.512(ICD-10) 11/12/2017 Active Other psychoactive OLASOKAN, Active [facility] substance OLAPEJU Other [place] dependence, Repository uncomplicated / F19.20(ICD-10) 11/12/2017 Active Orthostatic OLASOKAN, Active [facility] hypotension / OLAPEJU Other [place] I95.1(ICD-10) Repository 11/12/2017 Active Diarrhea, OLASOKAN, Active [facility] unspecified / OLAPEJU Other [place] R19.7(ICD-10) Repository 11/12/2017 Active Major depressive OLASOKAN, Active [facility] disorder, OLAPEJU Other [place] recurrent, moderate Repository / F33.1(ICD-10) 11/12/2017 Active Opioid dependence OLASOKAN, Active [facility] with withdrawal / OLAPEJU Other [place] F11.23(ICD-10) Repository 10/11/2017 Active Other chronic pain Unknown Active [facility] / G89.29(ICD-10) System Repository 09/05/2017 Active Other symptoms and MILK, BEST Active [facility] signs involving ISABELLA [place] emotional state / Repository R45.89(ICD-10) 09/05/2017 Active Poisoning by MILK, BEST [facility] unspecified drugs, ISABELLA Other [place] medicaments and Repository biological substances, undetermined, initial encounter / T50.904A(ICD-10) PROCEDURES PROCEDURES DATE CODE DESCRIPTION STATUS SOURCE 11/10/2017 87485(C4) TOXICOLOGY SCREEN, Completed [facility] UNCONFIRMED System Repository 11/10/2017 05250(C4) EKG 12 LEAD - Completed [facility] PERFORM System Repository 11/09/2017 07462(C4) BASIC METABOLIC Completed [facility] PANEL System Repository 11/09/2017 16574(C4) MAGNESIUM Completed [facility] Repository 11/09/2017 55158(C4) COMPLETE BLOOD COUNT Completed [facility] Repository 11/09/2017 93160(C4) URINALYSIS COMP Completed [facility] ([facility]) System Repository 11/09/2017 68493(C4) TOXICOLOGY SCREEN, Completed [facility] UNCONFIRMED System Repository 11/09/2017 42559(C4) HCG URINE Completed [facility] Repository 11/09/2017 27860(C4) ETHANOL, SERUM Completed [facility] Repository 11/09/2017 519762706(C4) URINALYSIS - Completed [facility] CHEMISTRY [facility] Repository ([place]) 11/09/2017 WUO067(C4) PROVIDE CONSTANT Completed [facility] SUPERVISION PSYCH System Repository 11/09/2017 FAPDV355(C4) IP PSYCHIATRIC ADULT Completed [facility] CONSULT System Repository 11/09/2017 FEL595(C4) RECHECK VITAL SIGNS Completed [facility] Repository 11/09/2017 58967(C4) EXTRA URINE Completed [facility] Repository 10/11/2017 ED103(C4) DISCHARGE PATIENT Completed [facility] Repository RESULTS RESULTS PROGRESS Observed: 07/28/2018 Status: COMPLETED Source: [place] 9:55 AM [facility] [place] REPOSITORY HNO ID: [id number] Author: Steven Haro Pharmd Service: (none) Author [...] Dept Phone 08/09/2018 11:00 AM RYAN CASTANO [facility] [phone] 08/23/2018 1:30 PM REGISTRATION CINDY Iyer/Shon venecia [phone] 08/23/2018 1:45 PM RAGINI GUY/S Yancy [phone] 08/28/2018 11:30 AM EKGJ1-4 MAIN CARD J [facility] [phone] 08/28/2018 12:00 PM SYNCOPE OPD NURSE CARD J Venecia [phone] 08/28/2018 12:30 PM ARIE MOREL CARD J [facility] [phone] 08/28/2018 4:20 PM RYAN CASTANO [facility] [phone] Time spent on patient: 10-20 minutes Steven Haro PharmD July 28, 2018 9:56 AM RAQUEL Observed: 07/28/2018 Status: COMPLETED Source: [place] 12:00 AM [facility] REPOSITORY Patient Outreach (PHRXRF) EDGARDO DENSON ([id number]) 1965 F Date Time Provider Department 07/28/18 STEVEN HARO PHARMD During your visit today, we recorded the following information about you: Steven Haro PharmD 07/28/2018 9:57 AM Signed TRANSITION CARE [...] Dept Phone 08/09/2018 11:00 AM RYAN CASTANO [facility] [phone] 08/23/2018 1:30 PM REGISTRATION VASM J/S [facility] [phone] 08/23/2018 1:45 PM RAGINI GUY VASM J/S d [phone] 08/28/2018 11:30 AM EKGJ1-4 MAIN CARD J [facility] [phone] 08/28/2018 12:00 PM SYNCOPE OPD NURSE CARD J [facility] [phone] 08/28/2018 12:30 PM ARIE MOREL CARD J [facility] [phone] 08/28/2018 4:20 PM RYAN CASTANO [facility] [phone] Time spent on patient: 10-20 minutes Steven Haro, SalinaD July 28, 2018 9:56 AM Allergies As [...] Other Pulmonary Embolism and Infarction [I26.99]INVALID FOR* [facility] (current) use of anticoagulants [Z79.*INVALID FOR* More... 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 -Medication review done- changed meds only.See pharmacy outreach -Admitted for: Syncope/ convulsions CONCERNS: Spoke with daughter- per pt permission. Dtr. reports receiving conflicting information from [facility] as to whether they would refill Percocet Rx without authorization from prescribing provider because there was not a note to indicate that med could be refilled early. Plans to p/u printed RX from [facility] and take to [facility] pharmacy. Encourage to call [facility] to see if there would be [...] per discharge- declines further review Notified that [facility] pharmacist would be calling and f/u on [...] EEG report ? - Lorraine Cervantes RN, [facility] [phone] PROGRESS Observed: 07/27/2018 Status: COMPLETED Source: [place] 9:13 AM [facility] REPOSITORY HNO ID: [id number] Author: Steven Haro Pharmd Service: (none) Author Type: Pharmacist Type: Progress Notes Filed: 07/27/2018 11:23 AM Note Text: TRANSITION CARE MANAGEMENT (TCM) PHARMACY CONTACT Provider Action/FYI: - Pt's daughter to obtain hard copy Rx for Percocet and fill at [facility] pharmacy on 07/27. See note below in blue text for details regarding this medication from inpt providers. - Rx refill request sent to for Kalyan-Anuj to Kimber Guzman). - TCM Medication Reconciliation completed for patient. See medication list table below for details. Initial contact with patient post discharge, spoke to patient and family member, daughter Lindsey,. Patient identified by name and . Summary: -Pt discharged from [facility] on 07/26/18. -Follow up appointment on - Pt requests f/u appt on 08/09/18. -Medication review done Yes. -Admitted for Convulsions Patient was contacted by telephone, identified for pharmacist care from discharge call list, and gave consent to manage medications related to transitional care management pursuant to the consult agreement with the [facility]. Patient Concerns: Spoke with pt and daughter [...] attempt to call prescriber). 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 [facility] pharmacy will have access to [facility] and will be able to see inpt [...] tolerates zosyn . sdm. 03/2007 TOLERATES KEFLEX 11-12-11 - Shrimp Unknown - Sulfa (Sulfonamide * GI Upset Gastritis - Sulfamethoxazole-Tr* Unknown - Topamax [Topiramate] Mental Status Change - Haldol [Haloperidol] Mental Status Change, Cough, GI Upset, Itching Preferred pharmacy: e- [id number] [facility] [facility] [place] [address] - [address] [facility] [phone] [facility] [address] e- [id number] [place] [address] [address] [facility] - [phone] [address] [facility] [address] e- [facility] [place], [place] [id number] - [address] - [phone] [facility] e- [id number] [place] [address] - [address] [facility] - [phone] [facility] [address] e- [id number] [place] [place] [address] - [address] - [phone] [facility] [address] e- [facility] [place] [address] - [address] [facility] - [phone] [facility] [address] e- [id number] [place] [address] [address] [facility] - [phone] [place] [phone] [facility] [address] e- [facility] [address] - INTERNAL USE ONLY - [place] [id number] - [phone] [facility] [phone] [address] [facility] [address] Medication Reconciliation: Legend: Stopped, New, Changed, Added to list Medication List Medication Directions Comments Action/Plan Cetirizine (ZYRTEC) 10 mg cap Take by mouth once daily. Review SIG, Take 1 tablet daily Updated as Hist Med clonazePAM (KLONOPIN) 0.5 mg tablet Take 1 tablet by mouth three times daily as needed for up to 90 days. 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 [phone] 08/23/2018 1:45 PM RAGINI GUY J/S venecia [phone] 08/28/2018 11:30 AM EKGJ1-4 MAIN CARD Shireen [facility] [phone] 08/28/2018 12:00 PM SYNCOPE OPD NURSE CARD Shireen Venecia [phone] 08/28/2018 12:30 PM ARIE MOREL CARD Shireen [facility] [phone] 08/28/2018 4:20 PM RYAN CASTANO [facility] Beac [phone] Interventions Made: Patient education, Medication counseling and Medication reconciliation completed Time spent on patient: 60-75 minutes Steven Haro, Vaughn July 27, 2018 9:14 AM RAQUEL Observed: 07/27/2018 Status: COMPLETED Source: DIAMOND 12:00 AM [facility] REPOSITORY Patient Outreach (FAMPBD) JARETTEDGARDO ([id number]) 1965 F Date Time Provider Department 07/27/18 [...] contact with patient post discharge, spoke to Lindsey obregon Patient identified by name and . TRANSITION CARE MANAGEMENT: Date of Outreach: 07/27/2018 Outreach Attempt 1: Contact Made Date of Discharge 07/26/2018 Some recent data might be hidden SUMMARY: -Pt discharged from [facility] on 07/26 -Follow up appointment on 08/09- Pharmacist to confirm. -Medication review done- changed meds only.See pharmacy outreach -Admitted for: Syncope/ convulsions CONCERNS: Spoke with daughter- per pt permission. Dtr. reports receiving conflicting information from [facility] as to whether they would refill Percocet Rx without authorization from prescribing provider because there was not a note to indicate that med could be refilled early. Plans to p/u printed RX from [facility] and take to [facility] pharmacy. Encourage to call [facility] to see if there would be [...] per discharge- declines further review Notified that [facility] pharmacist would be calling and f/u on [...] Final EEG report ? Lorraine Cervantes RN, [facility] [phone] Allergies As of Date: 07/27/2018 Noted Allergy [...] Other Pulmonary Embolism and Infarction [I26.99]INVALID FOR* FDC (current) use of anticoagulants [Z79.*INVALID FOR* More... 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 recorded the following information about you: Pulse Blood pressure Weight 88/minute 96/75 60.8 kg yRan Castano MD 05/30/2018 9:46 AM Signed Edgardo [...] Vena Cava Other Pulmonary Embolism and Infarction 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 Muscle Spasm Chemical dependency (HCC) Left Arm Weakness Depression Lethargy Djd (Degenerative Joint Disease), Cervical Emphysema of Lung ([facility]) Chronic Deep Vein Thrombosis of Left Femoral Vein ([facility]) Vitamin D Deficiency Psychosis ([facility]) Gerd (Gastroesophageal Reflux Disease) Asthma Psychiatric Disorder [...] exacerbation of chronic obstructive pulmonary disease (COPD) ([facility]) - ICD9: 491.21, ICD10: J44.1 [...] 1 PackageRfl: 0 ADMIN OF INFLUENZA VACCINE [[id number]] Order #: [id number]: 1 INFLUENZA VACCINE QUADRIVALENT AGE 3 YRS PLUS + IM [[id number]] Order #: [id number] promethazine (PHENERGAN) 25 mg tabletTake 1 tablet [...] (deep venous thrombosis) (HCC) [I82.409] INVALID FOR*02/25/2017 FDC current use of anticoagulant [Z79.01] INVALID FOR*02/25/2017 More... 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 Syncope [R55] INVALID FOR*08/31/2017 Intentional fentanyl overdose ([facility]) [T40.4X2A] INVALID FOR*08/31/2017 Nausea [R11.0] [...] 05/30/18 PROGRESS Observed: 05/24/2018 Status: COMPLETED Source: [place] 3:22 PM [facility] REPOSITORY HNO ID: [id number] Author: Denae Saldivar Service: (none) Author Type: [...] patient opt to establish care. Denae Saldivar APRN.FAST BRIM POUNCER XR CHEST 2V FRONTAL/LAT Observed: 05/24/2018 Status: F Source: INMAN 12:39 PM [facility] REPOSITORY * * *Final Report* * * [...] seen in the thoracic spine. IMPRESSION: Emphysema. Linux Admin: PSCB Transcribe Date/Time: May 24 2018 2:27P Dictated by : LEANDRO MULLEN MD This examination was interpreted and the report reviewed and electronically signed by: LEANDRO MULLEN MD on May 24 2018 2:29PM EST [id number] PROGRESS Observed: 05/24/2018 Status: COMPLETED Source: [place] 12:36 PM [facility] REPOSITORY HNO ID: [id number] Author: Ishmael Glover Rt Service: (none) Author [...] PM PROGRESS Observed: 05/24/2018 Status: COMPLETED Source: [place] 11:20 AM [facility] REPOSITORY O ID: [id number] Author: Denae Saldivar Service: (none) Author Type: Nurse Practitioner Type: Progress Notes Filed: 05/24/2018 3:23 PM Note Text: CC: Patient presents with: Cough: Hx of autoimmune, cough and concerns about pneumonia. MRSA: open sore on back concerns of MRSA has foul smell. x5days HPI: Edgardo Denson is a 52 year old female presenting to the [address] for evaluation of cough. She is [...] transverse - COLONOSCOP W/ OR W/O [facility] SPEC Colonoscopy - EGD W/O OR W/BRUSH/WASH [...] very resistant to most recommendations today. [facility], ER was advised, [...] APRN.JOSSELINE FERREIRA Observed: 05/24/2018 Status: COMPLETED Source: IN[place] 10:50 AM [facility] REPOSITORY Office Visit (INTMMN) EDGARDO DENSON ([id number]) 1965 F Date Time Provider Department 05/24/18 [...] home?: (pt declined to answer) ERIN Keller APRN.JOSSELINE 05/24/2018 3:23 PM Signed CC: Patient presents with: Cough: Hx of autoimmune, cough and concerns about pneumonia. MRSA: open sore on back concerns of MRSA has foul smell. x5days HPI: Edgardo Denson is a 52 year old female presenting to the [address] for evaluation of cough. She is also concerned about open sores on her upper back and shoulder, thought to be MRSA infection from prior tunneling skin condition requiring packing for a long time in early 1999'. Was advised that here in the walk-in [...] transverse - COLONOSCOP W/ OR W/O [facility] SPEC Colonoscopy - EGD W/O OR W/BRUSH/WASH [...] very resistant to most recommendations today. [facility], ER was advised, [...] 12:14 PM Addendum Please go to the [facility] basement level for chest x-ray, then you [...] prevention of COPD exacerbation. Please see the home care scheduler to follow-up. A consult was placed. You may call [phone] 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 Please see the home care scheduler to follow-up. A consult was placed. You may call [phone] Castano tomorrow to address your skin concern and other healthcare needs. Take care, Denae Saldivar APRN.[facility] Visit Notes: >> Bianka Brush MA TueMay 24, 2018 11:07 AM Status: Signed [...] 05/24/18 PROGRESS Observed: 05/22/2018 Status: COMPLETED Source: [place] 6:13 PM [facility] REPOSITORY HNO ID: [id number] Author: Samira Betts Service: (none) Author Type: [...] PE and can't follow up with her control clerk auditing because he in a car accident, my [...] take her there now. Samira Betts APRN.JOSSELINE PARNELLOV Observed: 05/22/2018 Status: COMPLETED Source: IN[place] 5:55 PM [facility] REPOSITORY Office Visit (EXPBEA) EDGARDO DENSON ([id number]) 1965 F Date Time Provider Department 05/22/18 5:55 PM SAMIRA BETTS (JOSSELINE) EXPBEA During your visit today, we recorded the following information about you: Temperature Pulse Blood pressure 98.6 degrees 118/minute 102/81 Samira Betts, SLIME PLANT OPERATOR HELPER.FAST BRIM POUNCER 05/22/2018 6:39 PM Signed Subjective Pt states [...] PE and can't follow up with her control clerk auditing because he in a car accident, my [...] take her there now. 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 Encounter Status:Closed by [employer], PRODUSER on 06/16/18 PROGRESS Observed: 04/28/2018 Status: COMPLETED Source: [place] 3:44 PM [facility] REPOSITORY O ID: [id number] Author: Lilo Ortiz Service: (none) Author Type: Physician Type: Progress Notes Filed: 05/01/2018 5:13 PM Note Text: EPILEPSY CLINIC NOTE - INITIAL VISIT CHIEF COMPLAINT: seizures, here for further evaluation and treatment. Per patient, Epilepsy Consult requested by Dr. Carlos Rae, her neurologist, but there is no mention of this in his last clinic note in [facility] (12/16/2017). She arrived 45 minutes late to [...] police found her She was taken to [facility], [place]; she does not remember how long she was hospitalized; she was discharged to [place]. She found unresponsive again [...] cellulitis, pneumonia. 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 Seen at [place] 11/12/2017 for syncopal episodes, left AMA. Seen in [place] ED 11/23/[address] Rae 12/16/2017; no changes made. Seen at [place] 03/24/2018 for slurred speech, weakness, lethargy; she was discharged. She was at [facility] 03/27, when she was found on the floor after syncopal event. She was taken to [facility], discharged 03/28/18. Main doctors: -Dr. Castano (PCP) -Dr. Carlos Rae (neurologist: seizures, shingles, serotonin syndrome (confusion, disoriented, sick sleep) in 2002) -different psychiatrists/psychologists at [facility] - started Effexor but now PCP prescribes and early development: normal and early development RISK FACTORS FOR SEIZURES 1. Head Trauma (No); 2. 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 Family History of Seizures (No); 4. Developmental Delay (No); 5. Febrile Seizures (No); 6. HOUSE MOVER SUPERVISOR Tumors (No); 7. HOUSE MOVER SUPERVISOR Vascular Disease (Yes, per patient); 8. Significant [...] - last was about 5 years ago ([place] or ) PAST SURGICAL HISTORY PAST SURGICAL HISTORY Procedure Laterality Date - DELIVERY ONLY , low transverse - COLONOSCOP W/ OR W/O [facility] SPEC Colonoscopy - EGD W/O OR W/BRUSH/WASH [...] Prior EEG results were reviewed. -EEG (05/17/2016, [place]): normal -EEG (03/22/2016, [place]): BG, slow; CS, gen max left TP -EEG (02/27/2015, [place]): normal -EEG (09/07/2013, [place]): excessive beta -EEG (05/17/2012, [place]): normal -EEG (10/24/2009, [facility]): normal -portable EEG (09/11/2009, [facility]): normal -portable EEG (04/04/2007, [facility]): normal [...] neuroimaging results were reviewed. -CT brain (03/24/2018, [place]): Age-appropriate stable and unremarkable head CT. -MRI/MRA(05/16/2016, [place]): No acute intracranial findings. ?Normal morphology and signal intensity of the brain parenchyma. No large vessel occlusion, significant focal narrowing, or aneurysm on intracranial fuig-mf-yudzbq MRA. 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 -MRI brain (02/25/2015, [place]): NO ACUTE INFARCT. NORMAL BRAIN PARENCHYMA. RECENT CT FINDINGS RESULT OF ARTIFACT. PERSISTENT TRIGEMINAL ARTERY. -MRI brain (09/06/2013, [place]): No acute findings. ?Brain parenchyma shows normal [...] Rae CNOV Observed: 04/28/2018 Status: COMPLETED Source: [place] 2:10 PM [facility] REPOSITORY Office Visit (NE50MN) EDGARDO DENSON ([id number]) 1965 F Date Time Provider Department 04/28/18 [...] this in his last clinic note in [facility] (12/16/2017). She arrived 45 minutes late to [...] 2-3/week Per patient: About 2 years ago (2016), episodes of LOC. She was unresponsive, naked, covered in urine, feces - police found her She was taken to [facility], [place]; she does not remember how long she was hospitalized; she was discharged to [place]. She found unresponsive again [...] cellulitis, pneumonia. 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 Seen at [place] 11/12/2017 for syncopal episodes, left AMA. Seen in [place] ED 11/23/[address] Rae 12/16/2017; no changes made. Seen at [place] 03/24/2018 for slurred speech, weakness, lethargy; she was discharged. She was at [facility] 03/27, when she was found on the floor after syncopal event. She was taken to [facility], discharged 03/28/18. Main doctors: -Dr. Castano (PCP) -Dr. Carlos Rae (neurologist: seizures, shingles, serotonin syndrome (confusion, disoriented, sick sleep) in 2002) -different psychiatrists/psychologists at [facility] - started Effexor but now PCP prescribes and early development: normal and early development RISK FACTORS FOR SEIZURES 1. Head Trauma (No); 2. 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 Family History of Seizures (No); 4. Developmental Delay (No); 5. Febrile Seizures (No); 6. HOUSE MOVER SUPERVISOR Tumors (No); 7. HOUSE MOVER SUPERVISOR Vascular Disease (Yes, per patient); 8. Significant [...] - last was about 5 years ago ([place] or ) PAST SURGICAL HISTORY PAST SURGICAL HISTORY Procedure Laterality Date - DELIVERY ONLY , low transverse - COLONOSCOP W/ OR W/O [facility] SPEC Colonoscopy - EGD W/O OR W/BRUSH/WASH [...] children: 1 Occupational History Occupation Employer Comment [employer]* Social History Main Topics Smoking status: Current Every Day Smoker Packs/day: 0.50 Years: 12.00 Types: Cigarettes Smokeless tobacco: Never Used Comment: Currently smokes two cigarettes a day Alcohol use: No Drug use: No Sexual activity: Not Currently Social History Narrative Lives w/ dtr EXAM deferred as she arrived 45 minutes late DATA Prior EEG results were reviewed. -EEG (05/17/2016, [place]): normal -EEG (03/22/2016, [place]): BG, slow; CS, gen max left TP -EEG (02/27/2015, [place]): normal -EEG (09/07/2013, [facility]): excessive beta -EEG (05/17/2012, [place]): normal -EEG (10/24/2009, [facility]): normal -portable EEG (09/11/2009, [facility]): normal -portable EEG (04/04/2007, [facility]): normal PSG/EEG [...] neuroimaging results were reviewed. -CT brain (03/24/2018, [place]): Age-appropriate stable and unremarkable head CT. -MRI/MRA(05/16/2016, [place]): No acute intracranial findings. ?Normal morphology and signal intensity of the brain parenchyma. No large vessel occlusion, significant focal narrowing, or aneurysm on intracranial tkie-un-sjxbbb MRA. 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 -MRI brain (02/25/2015, [place]): NO ACUTE INFARCT. NORMAL BRAIN PARENCHYMA. RECENT CT FINDINGS RESULT OF ARTIFACT. PERSISTENT TRIGEMINAL ARTERY. -MRI brain (09/06/2013, [place]): No acute findings. ?Brain parenchyma shows normal [...] unspecified convulsion type (HCC) [R56.9] Order(s):EEG LONG [[id number]] Order #: [id number] Prescriptions as of 04/28/2018 Sig: LACOSAMIDE 100 [...] INVALID FOR* More... 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 Syncope [R55] INVALID FOR*08/31/2017 Intentional fentanyl overdose ([facility]) [T40.4X2A] INVALID FOR*08/31/2017 Nausea [R11.0] INVALID FOR* Delusional disorder (HCC) [F22] INVALID FOR* More... 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 Follow-up and Disposition History Recorded Encounter Status:Closed by LILO ORTIZ MD on 05/01/18 PROGRESS Observed: 04/06/2018 Status: COMPLETED Source: [place] 1:14 PM [facility] REPOSITORY HNO ID: [id number] Author: Ryan Castano Service: (none) Author Type: [...] 0.5 MG TABLET 90 30 AL CAD [id number] RIT(4655) 1 3.00 [place] 03/06/2018 1 03/01/2018 OXYCODONE-ACETAMINOPHEN 5-325 150 30 AL CAD [id number] RIT([id number]) 0 37.50 [place] At the last visit with nj on 03-27 the AANDP was as follows: [...] MD ? Addendum: discussed w attending in [facility] ED Dr. Tan who will admit She was admitted to [facility] and released after one day. Lesvia said [...] fill out a C9 form for the [place] [employer] where she cannot get her tooth pulled because she does not have dental insurance. She says that the dentist needs an okay from me medically but that she needs a C9 form so it will be paid. I did not get a clear picture of how her dental caries related to a [facility] claim. 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 Other Pulmonary Embolism and Infarction [facility] (Current) Use of Anticoagulants Muscle Spasm Chemical dependency (HCC) Left Arm Weakness Depression Lethargy Djd (Degenerative Joint Disease), Cervical Emphysema of Lung (Hcc) Chronic Deep Vein Thrombosis of Left Femoral Vein ([facility]) Vitamin D Deficiency Psychosis ([facility]) Gerd (Gastroesophageal Reflux Disease) Asthma Psychiatric Disorder Tubulovillous Adenoma of Colon Nausea Delusional Disorder ([facility]) Orthostasis Illicit Drug Use Phencyclidine (Pcp) Use [...] bronchitis with chronic obstructive pulmonary disease (COPD) ([facility]) - ICD9: 491.22, ICD10: J44.0, [...] MD CNOV Observed: 04/06/2018 Status: COMPLETED Source: [place] 1:00 PM [facility] REPOSITORY Office Visit (FAMPBD) EDGARDO DENSON ([id number]) 1965 F Date Time Provider Department 04/06/18 1:00 PM RYAN CASTANO FAMPBD During your visit today, we recorded the following information about you: Temperature Pulse Blood pressure Weight 98.7 degrees 95/minute 94/77 60.8 kg Ryan Castano MD 04/07/2018 12:47 PM Signed Edgardo Denson is a 52 year old female who presents to followup for medication refills, to discuss her episodes of recurrent syncope and with a cold which has moved into her chest accompanied by her daughter. 03/20/2018 1 02/17/2018 CLONAZEPAM 0.5 MG TABLET 90 30 AL CAD [id number] RIT(4655) 1 3.00 LME [place] 03/06/2018 1 03/01/2018 OXYCODONE-ACETAMINOPHEN 5-325 150 30 AL CAD [id number] RIT(6242) 0 37.50 [place] At [...] MD ? Addendum: discussed w attending in [facility] ED Dr. Tan who will admit She was admitted to [facility] and released after one day. Lesvia said [...] fill out a C9 form for the [place] [employer] where she cannot get her tooth pulled because she does not have dental insurance. She says that the dentist needs an okay from me medically but that she needs a C9 form so it will be paid. I did not get a clear picture of how her dental caries related to a [facility] claim. 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 Muscle Spasm Chemical [...] bronchitis with chronic obstructive pulmonary disease (COPD) ([facility]) - ICD9: 491.22, ICD10: J44.0, [...] bronchitis with chronic obstructive pulmonary disease (COPD) ([facility]) [J44.0, J20.9] Other Visit Diagnoses:Other [...] (deep venous thrombosis) (HCC) [I82.409] INVALID FOR*02/25/2017 FDC current use of anticoagulant [Z79.01] INVALID FOR*02/25/2017 [...] DISCHARGE SUMMARY Observed: 03/30/2018 Status: COMPLETED Source: [place] 11:50 PM [facility] REPOSITORY Send Summary: Discharge Summary Providers: Provider RoleProvider Name ? ReferringGreyson Bertrand ? AttendingGreyson Bertrand ? PrimaryPodlDarinel Note Recipients: Greyson Bertrand MD Podl, Darinel Jesus MD - [phone] [left CC, unable to locate] Discharge: Summary: [...] AND PHYSICAL Observed: 03/28/2018 Status: COMPLETED Source: [place] 1:11 PM [facility]ITALS REPOSITORY History of Present [...] EMS called, and the patient brought to [facility] ED. The patient denies H/A, [...] Itching, Gynecomastia Objective: Objective Information: T PRBPSpO2 Value36.55223524/7095% Date/Time03/28 8: 8: 8: 8: 8:31 Range(36.3C [...] Complete Blood Count + Differential Trending View [id number]-Hoa-6435 06:38:00 27-Mar-2018 14:16:00 White Blood Cell Count7.3 8.8 Red Blood Cell Count4.02 4.06 HGB12.9 13.0 HCT38.7 38.5 MCV96 95 MCHC33.3 33.8 PPV612 308 RDW-CV12.2 12.2 Neutrophil %43.5 62.0 Immature Granulocytes %0.3 0.3 Lymphocyte %42.3 28.3 Monocyte %8.5 6.6 Eosinophil %4.4 2.3 Basophil %1.0 0.5 Neutrophil Count3.16 5.49 Lymphocyte Count3.07 2.50 Monocyte Count0.62 0.58 Eosinophil Count0.32 0.20 Basophil Count0.07 0.04 Basic Metabolic Panel Trending View Cygacp35-Dhw-4699 06:38:00 27-Mar-2018 14:16:00 Glucose, Serum86 93 NA138 135 L K4.3 5.3 CL107 104 Bicarbonate, Serum26 23 Anion Gap, Serum9 L 13 BUN14 16 CREAT0.74 0.68 GFR-Non >60 >60 GFR->60 >60 Calcium, Serum8.6 9.3 Drug Screen, Urine 27-Mar-2018 17:02:00 ResultValue Comments. SEE BELOW Drug screen results are presumptive and should not be used to assess compliance with prescribed medication. Contact the performing [facility] laboratory to add-on definitive confirmatory testing if [...] NEGATIVE CUTOFF LEVEL: 150 NG/ML The metabolite G-fhahh-lhtmpqzacrjigd (LAAM) is not detected by this method [...] Reference Range: STRAW,YELLOW Appearance, Urine CLEAR Specific Kingfisher, Urine 1.009 pH, Urine 6.0 Protein, Urine NEGATIVE Glucose, Urine NEGATIVE Blood, Urine NEGATIVE Ketones, Urine NEGATIVE Bilirubin, Urine NEGATIVE Urobilinogen, Urine <2.0 Nitrite, Urine NEGATIVE Leukocyte Esterase, Urine NEGATIVE Troponin I, Serum Trending View [id number]-Nbf-9042 17:02:00 27-Mar-2018 14:16:00 Troponin I, Serum<0.02 <0.02 [...] 01:26 PM DISCHARGE PROFILE2 Observed: 03/28/2018 Status: [facility] Source: [place] 1:00 PM [facility]OSPITALS REPOSITORY Discharge Orders: Anticipated Discharge Date: ? Anticipated Discharge [id number]-Zai-5393 Problem List: Prelim Disch Dx: ? Syncope: Catalog Name: [facility] Providers: Provider RoleProvider Name ? AttendingGreyson Bertrand [...] Review of Medication Reconciliation and Orders Completedby SLIME PLANT OPERATOR HELPER ? Reviewing MARCOS Gaspar at 28-Mar-2018 13:07:51 Appointments: Follow-Up Appointment 01: ? Physician/Dept/ServiceDrKenneth Castano (Primary Care Physician) ? Reason for Referralhospital follow up ,general health maintenance and medication refills ? Call to Schedule in1 week ? Phone [phone] Follow-Up Appointment 02: ? Physician/Dept/ServiceNeurologist ? Reason for Referralhospital follow up ,general health maintenance and medication refills ? Call to Schedule in1 week Electronic Signatures: Leanna Metz (SLIME PLANT OPERATOR HELPER-FAST BRIM POUNCER) (Signed 28-Mar-2018 13:07) Authored: Discharge Orders, Provider FINAL REVIEW of Orders, Appointments, Gold Form - Dobby Loom Chain Pegger Summary Last Updated: 28-Mar-2018 13:07 by Leanna Metz (SLIME PLANT OPERATOR HELPER-FAST BRIM POUNCER) DISCHARGE PLANNING Observed: 03/28/2018 Status: UNK Source: [...] Lindsey is primary emergency contact at (cell) [phone]. Patient denies any needs at this time. Will continue to follow. Deni Winters RN Electronic Signatures: Janet Winters) (Signed 28-Mar-2018 12:13) Authored: Discharge Planning Note Last Updated: 28-Mar-2018 12:13 by Janet Winters (RN) References: 1. Data Referenced From Admission Risk Screen - Adult 03/27/2018 10:44 PM CBC AND DIFFERENTIAL Collected: 03/28/2018 Status: F Source: [place] 6:38 AM [facility]OSPITALS REPOSITORY TYPE CODE TESTS [...] BASOPHIL 0.07 Performed By: #### CBC #### [facility] [address] [place] [address] BASIC METABOLIC PANEL Collected: 03/28/2018 Status: F Source: [place] 6:38 AM [facility]OSPITALS REPOSITORY TYPE CODE TESTS [...] 10.3 mg/dL CALCIUM 8.6 Performed By: #### BMP #### [facility] [address] [place] [id number] ADMISSION RISK SCREEN Observed: 03/27/2018 Status: UNK [...] risk with low risk for associated injury [place] Safety InterventionsWDL *orient to call system *instruct [...] ? Cultural Considerationsnone ? Developmental Considerationsnone ? Yazdanism Considerationsnone Learning Assessment (Other Learner): ? Other [...] Screen: ? Are there any cultural, spiritual, yazidism practices/values/needs that are important for us to know?no CAGE: Is this an injured patient at a Trauma Center ([facility] / [facility]): no (1) Vaccinations: Vaccination - Influenza Vaccination [...] PROFILE - Observed: 03/27/2018 Status: UNK Source: [place] ADULT 10:41 PM [facility]OS[facility]ITALS REPOSITORY Profile: Initial Info: How to be AddressedBarb Spoken Language PreferredEnglish (1) Source of Informationpatient Are you currently using the Personal Electronic Health Record or AfterCollegeUHCAREno Are you interested in learning more about [facility] for the management of your healthdeclined Stated Reason for Admissionunresponsive with no reason Arrived Fromemergency department Patient Belongingsremains with patient Patient Belongings Remaining with Patientpurse/wallet; clothing; cell phone/electronics Medications Brought to Hospitalno General Health: Weight in kg60.3 kilogram(s) Weight in vmn019.9 pound(s) Height in feet5 feet Height in [...] Arrangementshouse Significant Exposurenone(1) Resource/Environmental Concernsnone Anticipated Transition [facility] Anticipated at Transitionnone Significant IndicatorsComplete Information [...] Last Updated: 27-Mar-2018 22:44 by Lianet Trujillo (AIBODUN) References: 1. Data Referenced From Patient Profile - Adult v2 12/23/2017 2:41 AM 2. Data Referenced From Provider Note - ED v2 03/27/2018 1:[address] HEAD WO CONTRAST Observed: 03/27/2018 Status: F Source: [place] 7:43 PM [facility] REPOSITORY Patient Name: EDGARDO DENSON STUDY: CT HEAD WO CONTRAST; 03/27/2018 7:43 pm INDICATION: Signs/Symptoms: iraheta, syncope. COMPARISON: 12/26/2017 ACCESSION NUMBER(S): [id number] ORDERING CLINICIAN: CISCO TAN TECHNIQUE: Multiple axial [...] AND PELVIS Observed: 03/27/2018 Status: F Source: [place] WO CONTRAST 7:43 PM HOSPITALS REPOSITORY Patient Name: EDGARDO DENSON STUDY: CT ABDOMEN AND PELVIS WO CONTRAST; 03/27/2018 7:43 pm INDICATION: Signs/Symptoms: R flank pain. COMPARISON: 12/22/2017 ACCESSION NUMBER(S): [id number] ORDERING CLINICIAN: CISCO TAN TECHNIQUE: CT of [...] EMR ADDON Collected: 03/27/2018 Status: F Source: [place] 6:23 PM [facility] REPOSITORY TYPE CODE TESTS RESULT OUT OF REFERENCE UNITS RANGE LAB EMRAC(LOIN C) ADDON CONFIRMATION REQUEST REC'D Performed By: #### EMRAD #### [facility] [address] [place] [address] URINALYSIS Collected: 03/27/2018 Status: F Source: [place] 5:02 PM [facility] REPOSITORY TYPE CODE TESTS RESULT [...] ESTERASE NEGATIVE Performed By: #### UA #### [facility] [address] [place] [id number] TROPONIN I Collected: 03/27/2018 Status: F Source: [place] 5:[address] [place] [address] REPOSITORY TYPE CODE TESTS RESULT OUT OF [...] is performed using different testing methodology at [facility] than at other [facility]. Direct result comparisons should only be made within the same method. Performed By: #### TROP2 #### [facility] [address] [place] [address] DRUG SCREEN,URINE Collected: 03/27/2018 Status: F Source: [place] [address]:[address] [place] [address] REPOSITORY TYPE CODE TESTS RESULT OUT OF REFERENCE UNITS RANGE LAB DRCOM(LOINC ) DRUG SCREEN SEE BELOW COMMENT Result Comment: Drug screen results are presumptive and should not be used to assess compliance with prescribed medication. Contact the performing [facility] laboratory to add-on definitive confirmatory testing if [...] Comment: CUTOFF LEVEL: 150 NG/ML The metabolite U-dfesz-fgtfvbwzhhwwma (LAAM) is not detected by this method [...] dextromethorphan. Performed By: #### DRUG3 #### [facility] [address] [place] [address] URINE Observed: 03/27/2018 Status: F Source: [place] CULTURE,BACTERIAL 5:02 PM HOSPITALS REPOSITORY PATIENT: EDGARDO DENSON LOCATION: [place] [address] BILL#: [id number] : 63 AGE: SEX: F ORDERED BY: CISCO TAN SOURCE: URINE COLLECTED: 03/27/18 17:02 ANTIBIOTICS AT [place].: RECEIVED : 03/27/18 22:41 SITE: Clean Catch/Voided R E S U L T S URINE CULTURE,BACTERIAL FINAL 03/28/18 17:20 NO SIGNIFICANT GROWTH. Performed By: #### URINC #### [facility] [address] [place] [address] CBC AND DIFFERENTIAL Collected: 03/27/2018 Status: F Source: [place] 2:16 PM HOSPITALS REPOSITORY TYPE CODE TESTS [...] BASOPHIL 0.04 Performed By: #### CBCDF #### [facility] [address] [place] [id number] PT/INR Collected: 03/27/2018 Status: F Source: [address] REPOSITORY TYPE CODE TESTS RESULT OUT OF REFERENCE UNITS RANGE LAB PT(LOINC) 9.8 - 12.7 sec PROTHROMBIN TIME 11.6 LAB INR(LOINC) 0.9 - 1.1 PT, INR 1.0 Performed By: #### PTINR #### [facility] [address] [place] [id number] APTT Collected: 03/27/2018 Status: F Source: [address] REPOSITORY TYPE CODE TESTS RESULT OUT OF RANGE REFERENCE UNITS LAB APTT(LOINC) 25 - 36 sec APTT 36 Result Comment: THE APTT IS NO LONGER USED FOR MONITORING UNFRACTIONATED HEPARIN THERAPY. FOR MONITORING HEPARIN THERAPY, USE THE HEPARIN ASSAY. Performed By: #### APTT #### [facility] [address] [place] [id number] AMMONIA Collected: 03/27/2018 Status: F Source: [address] REPOSITORY TYPE CODE TESTS RESULT OUT [...] be considered. Performed By: #### AMM #### [facility] [address] [place] [id number] TROPONIN I Collected: 03/27/2018 Status: F Source: [address] REPOSITORY TYPE CODE TESTS RESULT OUT [...] is performed using different testing methodology at [facility] than at other [facility]. Direct result comparisons should only be made within the same method. Performed By: #### TROP2 #### [facility] [address] [place] [address] LACTATE Collected: 03/27/2018 Status: F Source: [place] 2:16 [facility] REPOSITORY TYPE CODE TESTS RESULT OUT OF REFERENCE UNITS RANGE LAB LACT(LOINC) 0.4 - 2.0 mmol/L LACTATE 1.2 Result Comment: Venipuncture immediately after or during the administration of Metamizole may lead to falsely low results. Testing should be performed immediately prior to Metamizole dosing. Performed By: #### LACT #### [facility] [address] [place] [address] BASIC METABOLIC PANEL Collected: 03/27/2018 Status: F Source: [place] 2:16 [facility] REPOSITORY TYPE CODE TESTS RESULT [...] USING THE MDRD STUDY EQUATION FOR THE [facility] CREATININE METHODS. CLIN CHEM 2007;53:766-72 LAB CA(LOINC) 8.6 - 10.3 mg/dL CALCIUM 9.3 Performed By: #### BMP #### [facility] [address] [place] [address] HEPATIC FUNCTION Collected: 03/27/2018 Status: F Source: [place] PANEL 2:16 PM HOSPITALS REPOSITORY TYPE CODE [...] PROTEIN 7.5 Performed By: #### HEPFP #### [facility] [address] [place] [address] RISK SCREEN - ADULT Observed: 03/27/2018 Status: UNK Source: [facility] 2:10 PM [facility]ITALS REPOSITORY Preferred Language: Preferred Language: ? Preferred Language for Discussing Health Care (patient/designee)Guyanese Advanced Directives: ? Advance Directive Medicalno Family [...] ? Cultural Considerationsnone ? Developmental Considerationsnone ? Yazdanism Considerationsnone Learning Assessment (Other Learner): Learning Assessment [...] an injured patient at a Trauma Center ([facility] / [facility]): no Electronic Signatures: Jodi Joya (ABIODUN) (Signed [...] PA AND Observed: 03/27/2018 Status: F Source: [facility] 1:45 PM HOSPITALS REPOSITORY Patient Name: EDGARDO DENSON STUDY: CHEST 2 VIEW PA AND LAT; 03/27/2018 1:45 pm INDICATION: Signs/Symptoms: syncope, weakness. 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 Impression -Syncope -opioid Dependent -Right flank pain likely musculoskeletal -Diplopia Critical Care Time: -none Disposition -adm, stable Cisco Tan, [facility] HISTORY OF [...] HISTORY: Medical History Name:Fatigue Code:N/A Name:Pulmonary embolism Code:560490219 Name:Seizure disorder (disorder) Code:048308934 Name:Migraine NOS (disorder) Code:197217044 Name:Depression NOS Code:549977509 Name:Chronic pain Code:68096144 Name:Allergic disorder Code:665255964 Name:Pain, chronic Code:G89.29 OUTPATIENT MEDICATIONS: Home Medications [...] PACK DAILY Status:Active Description:Hemmorhagic gastritis Status:Active Description: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 Status:Active Description:CVA X 3 Status:Active Description:Seizure disorder vs pseudoseizures Status:Active Description:Depression vs Schizoaffective disorder Status:Active Description:PE/DVT 2006, IVC filter Status:Active Description:Postherpatic Neurolgia Status:Active Description:Borderline Personality Disorder Status:Active Description:Frequent MRSA infections/abcesses of skin/soft tissue Status:Active Description:Chronic Pain Status:Active Description:?Munchausen Syndrome Status:Active Description:?Seritonian syndrome Status:Active Description:Reflex sympathetic dystrophy of all extremities Status:Active Description:?RAJAN Status:Active Description:Migraines Status:Active Description:?Atypical Asthma Status:Active 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 : no(1) Is : no(1) RESULTS/VITAL SIGNS RESULTS: Recent Lab Results: I have reviewed these laboratory results: Urinalysis 27-Mar-2018 17:02:00 ResultValue Color, Urine STRAW Reference Range: STRAW,YELLOW Appearance, Urine CLEAR Specific Kingfisher, Urine 1.009 pH, Urine 6.0 Protein, Urine NEGATIVE Glucose, Urine NEGATIVE Blood, Urine NEGATIVE Ketones, Urine NEGATIVE Bilirubin, Urine NEGATIVE Urobilinogen, Urine <2.0 Nitrite, Urine NEGATIVE Leukocyte Esterase, Urine NEGATIVE Troponin I, Serum Trending View [id number]-[id number]-9004 17:02:00 27-Mar-2018 14:16:00 Troponin I, Serum<0.02 <0.02 [...] SIGNS: T PRBP SpO2O2(LPM) %FiO2 Method 27-Mar-2018 18:00:00-7578844/89 97 27-Mar-2018 17:00:00-1638095/70 96 27-Mar-2018 16:00:00-1151108/72 93 27-Mar-2018 15:00:00-035153/79 97 27-Mar-2018 14:00:00-3441224/78 98 27-Mar-2018 13:30:00-179983/63 97 27-Mar-2018 13:17:00-5704481/86 99 room air, no respiratory support 27-Mar-2018 13:13:00-3140401/86 99 room air, no respiratory support CLINICAL IMPRESSION Diagnosis/Annotation: ED Dx Name:Syncope Code:R55 Dispostion: hospitalized ATTESTATION Comments/Additional Findings: IEulalia, am scribing for and in the presence of Dr. Britney DO. CRITICAL CARE TIME Is this a critically ill patient?: no Electronic Signatures: Cisco Tan () (Signed 27-Mar-2018 18:46) Authored: Provider Note - ED v2 Eulalia Bo (Scribe) (Entered 27-Mar-2018 13:58) Entered: Provider Note - ED v2 Last Updated: 27-Mar-2018 18:46 by Cisco Tan () References: 1. Data Referenced From Triage - ED 03/27/2018 1:17 PM TRIAGE - ED Observed: 03/27/2018 Status: UNK Source: [place] 1:17 PM HOSPITALS REPOSITORY Quick Triage: Are [...] (ABIODUN) GLUCOSE-POCT Collected: 03/27/2018 Status: F Source: [place] 1:11 PM HOSPITALS REPOSITORY TYPE CODE TESTS RESULT OUT OF RANGE REFERENCE UNITS LAB GLUP(LOINC) 74 - 99 mg/dL High 103 GLUCOSE-POCT Performed By: #### GLUPO #### [facility] [address] [place] [address] PROGRESS Observed: 03/27/2018 Status: COMPLETED Source: [place] 12:38 PM [facility] REPOSITORY HNO ID: [id number] Author: Ryan Castano Service: (none) Author Type: [...] was seen and released from the ED 8. 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 Ryan Castano MD Addendum: juvenal w attending in [facility] Dr. Tan who will admit CNOV Observed: 03/27/2018 Status: COMPLETED Source: [place] 10:40 AM [facility] REPOSITORY Office Visit (FAMPBD) JARETTEDGARDO L ([id number]) 1965 F Date Time Provider Department 03/27/18 [...] Vena Cava Other Pulmonary Embolism and Infarction [facility] (Current) Use of Anticoagulants Muscle Spasm Chemical dependency ([facility]) Left Arm Weakness Depression Lethargy Djd (Degenerative Joint Disease), Cervical Emphysema of Lung ([facility]) Chronic Deep Vein Thrombosis of Left Femoral Vein ([facility]) Vitamin D Deficiency Psychosis ([facility]) Gerd (Gastroesophageal Reflux Disease) Asthma Psychiatric Disorder Tubulovillous Adenoma of Colon Nausea Delusional Disorder ([facility]) Orthostasis Illicit Drug Use Phencyclidine (Pcp) Use Disorder, Moderate, Dependence ([facility]) Psychogenic Nonepileptic Seizure Opacity of Lung On [...] calm; 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 Tan who will admit Referring Provider: [...] INVALID FOR* More... DVT (deep venous thrombosis) ([facility]) [I82.409] INVALID FOR*02/25/2017 [facility] current use of anticoagulant [Z79.01] INVALID FOR*02/25/2017 [...] ED NOTE Observed: 03/25/2018 Status: COMPLETED Source: [place] 3:40 AM [facility] REPOSITORY HNO ID: [id number] Author: Aleks OliverosRn) ABIODUN Cantor Service: (none) Author Type: Registered Nurse Type: ED Notes Filed: 03/25/2018 3:54 AM Note Text: Pt given discharge instructions and a copy of her lab work that she had requested. Pt began screaming at myself and other staff members again. Respond with heart continued. ED NOTE Observed: 03/25/2018 Status: COMPLETED Source: [place] 3:35 AM [facility] REPOSITORY HNO ID: [id number] Author: Aleks Alcantar) ABIODUN Cantor Service: (none) [...] ED NOTE Observed: 03/25/2018 Status: COMPLETED Source: [place] 3:30 AM [facility] REPOSITORY HNO ID: [id number] Author: Fred OlivreosRn) ABIODUN Plunkett Service: Emergency Medicine Author Type: [...] ED NOTE Observed: 03/25/2018 Status: COMPLETED Source: [place] 3:25 AM [facility] REPOSITORY HNO ID: [id number] Author: Aleks Alcantar) ABIODUN Cantor Service: (none) [...] ED NOTE Observed: 03/25/2018 Status: COMPLETED Source: [place] 2:45 AM [facility] HNO ID: [id number] Author: Aleks Alcantar) ABIODUN Cantor Service: (none) [...] ED NOTE Observed: 03/25/2018 Status: COMPLETED Source: [place] 1:52 AM [facility] REPOSITORY HNO ID: [id number] Author: NAIMA Patton (Pcna) Service: (none) Author Type: Patient Care Drainage Inspector Type: ED Notes Filed: 03/25/2018 1:52 AM Note Text: Straight cath urine specimen obtained and sent. URINALYSIS WITH Collected: 03/25/2018 Status: F Source: [facility] 1:52 AM CLINIC OTHER CAMPUS REPOSITORY TYPE CODE TESTS RESULT OUT OF RANGE REFERENCE UNITS LAB UCOL Yellow Color Yellow LAB [facility] Clear Clarity Clear LAB UGLUC Negative mg/dL Glucose, Urine Negative LAB UBIL Negative Bilirubin, Urine Negative LAB UKET Negative Ketones, Urine Negative LAB USPG 1.003-1.030 Specific [place], Ur 1.020 LAB UHGB Negative Hemoglobin/Blood, Negative [...] TOXICOLOGY SCREEN,UR Collected: 03/25/2018 Status: F Source: [place] 1:52 AM [facility] OTHER CAMPUS REPOSITORY TYPE CODE TESTS RESULT [...] on the same specimen through Client Services ([phone]) if contacted within 48 hours of initial testing. [1]Substance Abuse and Mental Health Services Administration (2012). Clinical Drug Testing in Primary Care Technical Assistance Publication Series 32. Department of Health and Human Services, [place], p.10. Observed: 03/25/2018 Status: F Source: [place] URINE CULTURE 1:51 AM [facility] OTHER [place] REPOSITORY Sp. Request/Comment: - Specimen received in preservative Culture Result - 10,000 - <50,000 CFU/ml Normal urogenital damon Performed By: #### URCUL #### [facility] [address] [place], [place] [address] ED NOTE Observed: 03/25/2018 Status: COMPLETED Source: [place] 1:35 AM [facility] OTHER [place] REPOSITORY HNO ID: [id number] Author: Aleks (Rn) ABIODUN Cantor Service: (none) [...] AND DIFFERENTIAL Collected: 03/25/2018 Status: F Source: [place] 12:24 AM [facility] OTHER CAMPUS REPOSITORY TYPE CODE TESTS RESULT [...] k/uL Abs Lymph 2.78 LAB AMONO % [place]% 5.1 LAB AAMONO <0.87 k/uL Abs [place] 0.51 LAB AEOS % Eosin% 2.4 LAB AAEOS <0.46 k/uL Abs Eosin 0.24 LAB ABASO % Baso% 0.4 LAB AABASO <0.11 k/uL Abs Baso 0.04 LAB DTYP DTYPE Auto Diff COMP METABOLIC PANEL Collected: 03/25/2018 Status: F Source: [place] 12:24 AM CLINIC OTHER CAMPUS REPOSITORY TYPE [...] GFR. ETHANOL Collected: 03/25/2018 Status: F Source: [place] 12:24 AM [facility] OTHER CAMPUS REPOSITORY TYPE CODE TESTS RESULT OUT OF REFERENCE UNITS RANGE LAB ALCO <11 mg/dL Ethanol <11 MAGNESIUM Collected: 03/25/2018 Status: F Source: [place] 12:24 AM [facility] OTHER CAMPUS REPOSITORY TYPE CODE TESTS RESULT OUT OF REFERENCE UNITS RANGE LAB MG 1.7-2.6 mg/dL Magnesium 2.0 TSH Collected: 03/25/2018 Status: F Source: [place] 12:24 AM [facility] OTHER CAMPUS REPOSITORY TYPE CODE TESTS RESULT [...] Clinical Practice Guideline. J Clin Endocrinol Metab, 2012:[id number]. 2. Ulysses DS. Overview of thyroid disease in . UpToDate. 2016. Accessed on January 30, 2016. ED NOTE Observed: 03/25/2018 Status: COMPLETED Source: [place] 12:05 AM [facility] OTHER CAMPUS REPOSITORY HNO ID: [id number] Author: Aleks (Abiodun) ABIODUN Cantor Service: (none) Author Type: Registered Nurse Type: ED Notes Filed: 03/25/2018 1:35 AM Note Text: Second IV attempted via ultra unsuccefully. ED attending aware no IV has been obtained but blood work has been collected and sent. CT BRAIN WO IVCON Observed: 03/24/2018 Status: F Source: [place] 11:52 PM [facility] OTHER CAMPUS REPOSITORY * * *Final Report* * * DATE OF EXAM: Mar 24 2018 11:52PM [facility] 0504 - CT BRAIN WO [...] ED NOTE Observed: 03/24/2018 Status: COMPLETED Source: [place] 11:45 PM [facility] REPOSITORY HNO ID: [id number] Author: Aleks (Rn) ABIODUN Cantor Service: (none) Author Type: Registered Nurse Type: ED Notes Filed: 03/25/2018 12:20 AM Note Text: IV attempted unsuccessfully. ED PROV NOTE Observed: 03/24/2018 Status: COMPLETED Source: [place] 11:11 PM [facility] REPOSITORY HNO ID: [id number] Author: Best Parker DO Service: (none) Author [...] transverse - COLONOSCOP W/ OR W/O [facility] SPEC Colonoscopy - EGD W/O OR W/BRUSH/WASH [...] tolerates zosyn . sdm. 03/2007 TOLERATES KEFLEX 11-12- - Shrimp Unknown - Sulfa (Sulfonamide * [...] Impression ED Course as of Mar 25 255 Best Saul Elena's Documentation TueMar 24, 2018 9278 ED EKG INTERPRETATION: Normal sinus rhythm at [...] 1V FRONTAL Observed: 03/24/2018 Status: F Source: [facility] 11:08 PM CLINIC OTHER CAMPUS REPOSITORY * [...] [id number] EKG (AK,AV,EU,FV,HL,ANGELES,MM,SP) Observed: Status: F Source: [place] 03/24/2018 10:44 [facility] REPOSITORY NAME : EDGARDO DENSON PID : [id number] : 1965 Gender : Female Race : ORD : [id number] Procedure Date : Mar 24 2018 22:44:50 Edit Date : Mar 26 2018 19:17:02 Diagnosis:NORMAL SINUS RHYTHM NORMAL ECG WHEN COMPARED WITH ECG OF 23-NOV-2017 23:25, NO SIGNIFICANT CHANGE WAS FOUND Confirmed by MARK GORDON M.D. ([id number]) on 03/26/2018 7:16:51 PM Ventricular Rate : 90 BPM Atrial Rate : 90 BPM P-R Interval : 116 ms QRS Duration : 78 ms Q-T Interval : 366 ms QTC Calculation(Bezet) : 447 ms P [place] : 70 degrees R [place] : 58 degrees T [place] : 48 degrees Test Reason : Arrhythmia Location : 26 : ER L ED Overread By : MARK GORDON M.D. Edited By : MARK GORDON M.D. Referred By : , Acquired by : BRAD Observed: 03/20/2018 Status: COMPLETED Source: [place] 12:00 AM [facility] REPOSITORY Telephone (FAMPBD) JARETTEDGARDO Foss ([id number]) 1965 F Date Time Provider Department 03/20/18 RYAN CASTANO During your visit today, we recorded the following information about you: Miriam Mccallum Psr 03/20/2018 1:27 PM Signed Edgardo Prudence Jarett is calling Ryan Castano MD today with concern regarding kidney pain/ leg cramping and sores on her shoulder that aren't healing Patient has been identified by name and birthdate. Duration of symptoms: N/A Person calling: daughter: Lindsey Call patient at: [phone] (home) [phone] (cell) Was an appointment scheduled: No Closing statement: Symptom Call: Thank you for calling [facility], your call is very important. A nurse [...] Limon 03/23/2018 8:48 AM Signed LMTCB Zaira Iyer Psr 03/23/2018 12:32 PM Signed Patient scheduled [...] Lethargy [R53.83] INVALID FOR* More... Seizure disorder ([facility]) [G40.909] INVALID FOR*11/12/2017 More... Low BP [I95.9] INVALID FOR*08/31/2017 More... DJD (degenerative joint disease), cervical [M50* Anxiety state, unspecified [F41.1] 04/22/2014 Pain [R52] INVALID FOR*08/31/2017 Priority: B More... Fever [R50.9] INVALID FOR*02/25/2017 Priority: C More... Delirium [R41.0] INVALID FOR*02/25/2017 Priority: A More... Hematemesis [K92.0] INVALID FOR*02/25/2017 Priority: C More... Emphysema of lung ([facility]) [J43.9] INVALID FOR* Smoker [F17.200] INVALID FOR*02/25/2017 Chronic deep vein thrombosis of left femoral ve*INVALID FOR* Vitamin D deficiency [E55.9] INVALID FOR* Psychosis [F29] INVALID FOR* GERD (gastroesophageal reflux disease) [K21.9] INVALID FOR* Asthma [J45.909] INVALID FOR* Orthostatic hypotension [I95.1] INVALID FOR*08/31/2017 More... Psychiatric disorder [F99] INVALID FOR* More... 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 [Z79.01] INVALID FOR*02/25/2017 [...] WO IVCON Observed: 02/25/2018 Status: F Source: [place] 1:43 PM CLINIC OTHER CAMPUS REPOSITORY * * *Final Report* * * DATE OF EXAM: Feb 25 2018 1:43PM [facility] 0541 - CT CHEST WO [...] [id number] PROGRESS Observed: 01/02/2018 Status: COMPLETED Source: [place] 12:26 PM [facility] REPOSITORY HNO ID: [id number] Author: Ryan Castano Service: (none) Author Type: [...] Vena Cava Other Pulmonary Embolism and Infarction 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 Muscle Spasm Chemical [...] MD CNOV Observed: 01/02/2018 Status: COMPLETED Source: [place] 11:40 AM [facility] REPOSITORY Office Visit (ALEXPBD) EDGARDO DENSON ([id number]) 1965 F Date Time Provider Department 01/02/18 11:40 AM RYAN CASTANO During your visit today, [...] Vena Cava Other Pulmonary Embolism and Infarction 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 Follow-up and Disposition History Recorded Encounter Status:Closed by RYAN CASTANO MD on 01/03/18 DAILY PROGRESS Observed: 12/28/2017 Status: COMPLETED Source: [facility] 6:10 PM [facility]ITALS REPOSITORY Service: Medicine [...] INTERVENTION - Observed: 12/28/2017 Status: UNK Source: [facility] 11:31 AM [facility]OSPITALS REPOSITORY Pharmacist's Clinical Intervention: Type of recommendation: Discharge Electronic Signatures: Mary Ramos (PharmD) (Signed 28-Dec-2017 11:32) Authored: Pharmacist's Clinical Intervention Last Updated: 28-Dec-2017 11:32 by Mary Ramos (PharmD) DISCHARGE SUMMARY Observed: 12/27/2017 Status: COMPLETED Source: [facility] 1:08 PM [facility] REPOSITORY Send Summary: Discharge Summary Providers: Provider Role Provider Name ? Consulting Brittany Louis ? Consulting Malik Paul ? Primary Ilia, Darinel Jesus Note Recipients: Brittany Louis MD Jasper, John Jay, MD Podprudence, Darinel Jesus, - [id number] [left CC, unable to locate] Discharge: Summary: [...] PM CBC Collected: 12/27/2017 Status: F Source: [facility] 5:25 AM [facility]ITALS REPOSITORY TYPE CODE TESTS [...] RDW-CV 13.2 Performed By: #### CBC #### [facility] [address] [place], [place] [id number] COMPREHENSIVE PANEL Collected: 12/27/2017 Status: F Source: [facility] [address] [place] [address] REPOSITORY TYPE CODE TESTS RESULT OUT OF [...] for ALT. Performed By: #### CMP #### [address] [id number] CBC Collected: 12/26/2017 Status: F Source: [facility] [address] [place] [address] REPOSITORY TYPE CODE TESTS RESULT OUT OF [...] RDW-CV 13.3 Performed By: #### CBC #### [address] [id number] MAGNESIUM Collected: 12/26/2017 Status: F Source: [facility] [address] [place] [address] REPOSITORY TYPE CODE TESTS RESULT OUT OF REFERENCE UNITS RANGE LAB MG(LOINC) 1.60 - 2.40 mg/dL MAGNESIUM 1.86 Performed By: #### MG #### [address] [place], [place] [id number] RENAL FUNCTION PANEL Collected: 12/26/2017 Status: F Source: [facility] 7:25 PM [facility]ITALS REPOSITORY TYPE CODE TESTS [...] ALBUMIN 3.8 Performed By: #### RENAL #### [address] [id number] HEAD WO CONTRAST Observed: 12/26/2017 Status: F Source: [facility] 6:10 PM [facility] REPOSITORY Patient Name: EDGARDO DENSON STUDY: CT HEAD WO CONTRAST; 12/26/2017 6:10 pm INDICATION: Signs/Symptoms: Fall, head trauma. Trauma to the head. COMPARISON: 11/02/2016 CT ACCESSION NUMBER(S): [id number] ORDERING CLINICIAN: PETAR WINTERS TECHNIQUE: Noncontrast axial [...] backboard. Patient combative. COMPARISON: None. ACCESSION NUMBER(S): [id number] ORDERING CLINICIAN: PETAR WINTERS TECHNIQUE: Axial CT [...] CLINICAL EVENT Observed: 12/26/2017 Status: UNK Source: [facility] NOTE-RAPID RESPONSE 5:58 PM [facility]ITALS REPOSITORY Event: Topic: Rapid response Details: Rapid response was called 1734. Patient was found on floor with no [...] - PSYCHIATRY Observed: 12/26/2017 Status: COMPLETED Source: [facility] 12:04 PM [facility] REPOSITORY Referral Information: Consult [...] Mayes) CBC Collected: 12/26/2017 Status: F Source: [facility] 5:21 AM [facility] REPOSITORY TYPE CODE TESTS RESULT [...] RDW-CV 12.9 Performed By: #### CBC #### [facility] [id number] [place] [id number] TROPONIN I Collected: 12/26/2017 Status: F Source: [facility] 5:21 AM [facility] REPOSITORY TYPE CODE TESTS RESULT [...] is performed using different testing methodology at [facility] than at other [facility]. Direct result comparisons should only be made within the same method. Performed By: #### TROP2 #### [facility] [address] [place], [place] [id number] PHOSPHORUS Collected: 12/26/2017 Status: F Source: [facility] 5:21 [facility] REPOSITORY TYPE CODE TESTS RESULT OUT OF REFERENCE UNITS RANGE LAB PHOS(LOINC 2.5 - 4.9 mg/dL ) PHOSPHORUS 3.4 Result Comment: The performance characteristics of phosphorus testing in heparinized plasma have been validated by the individual laboratory site where testing is performed. Testing on heparinized plasma is not approved by the FDA; however, such approval is not necessary. Performed By: #### PHOS #### [facility] [id number] [place] [phone] COMPREHENSIVE PANEL Collected: 12/26/2017 Status: F Source: [facility] [address] [place] [address] REPOSITORY TYPE CODE TESTS RESULT OUT OF [...] for ALT. Performed By: #### CMP #### [facility] [address] [place], [place] [phone] CHEST 1 VIEW Observed: 12/25/2017 Status: F Source: [facility] 8:18 PM [facility] REPOSITORY Patient Name: EDGARDO DENSON STUDY: CHEST 1 VIEW; 12/25/2017 8:18 pm INDICATION: Signs/Symptoms: unresponsive. COMPARISON: 10/19/2016 ACCESSION NUMBER(S): [id number] ORDERING CLINICIAN: ELLEN NICOLE FINDINGS: CARDIOMEDIASTINAL SILHOUETTE: Cardiomediastinal silhouette is normal in size and configuration. LUNGS: No pulmonary consolidation, pleural effusion or pneumothorax. ABDOMEN: No remarkable upper abdominal findings. BONES: No acute osseous abnormality. IMPRESSION: No acute cardiopulmonary process. Electronically signed by: MARTHA CHACON MD CBC Collected: 12/25/2017 Status: F Source: [facility] 8:10 [facility] REPOSITORY TYPE CODE TESTS RESULT [...] RDW-CV 13.2 Performed By: #### CBC #### [facility] [address] [place], [place] [phone] COMPREHENSIVE PANEL Collected: 12/25/2017 Status: F Source: [facility] 8:10 [facility] REPOSITORY TYPE CODE TESTS RESULT [...] for ALT. Performed By: #### CMP #### [facility] [address] [place], [place] [phone] LACTATE Collected: 12/25/2017 Status: F Source: [facility] 8:10 PM [facility] REPOSITORY TYPE CODE TESTS RESULT OUT OF REFERENCE UNITS RANGE LAB LACT(LOINC) 0.4 - 2.0 mmol/L LACTATE 1.7 Result Comment: Venipuncture immediately after or during the administration of Metamizole may lead to falsely low results. Testing should be performed immediately prior to Metamizole dosing. Performed By: #### LACT #### [facility] [address] [place], [place] [phone] TROPONIN I Collected: 12/25/2017 Status: F Source: [facility] 8:10 PM [facility]OS[facility]ITALS REPOSITORY TYPE CODE TESTS [...] is performed using different testing methodology at [facility] than at other [facility]. Direct result comparisons should only be made within the same method. Performed By: #### TROP2 #### [facility] [address] [facility] [place] [phone] CLINICAL EVENT Observed: 12/25/2017 Status: UNK Source: [facility] NOTE-RAPID RESPONSE 7:49 PM [facility]OS[facility]ITALS REPOSITORY Event: [...] (Resident)) GLUCOSE-POCT Collected: 12/25/2017 Status: F Source: [facility] 7:43 PM [facility]ITALS REPOSITORY TYPE CODE TESTS RESULT OUT OF RANGE REFERENCE UNITS LAB GLUP(LOINC) 74 - 99 mg/dL 98 GLUCOSE-POCT Performed By: #### GLUPO #### [facility] [address] [id number] DAILY PROGRESS Observed: 12/25/2017 Status: COMPLETED Source: [...] Observed: 12/25/2017 Status: COMPLETED Source: [facility] 10:18 AM [facility] REPOSITORY Consult Type: [...] until signed by attending, Dr. Humberto Abdi, [facility], PGY1 Surgery pager [phone] Signature/Cosignature/Attestation: Attending Attestation I saw and evaluated [...] attestation) on 25-Dec-2017 Electronic Signatures: Bisi Abdi (Resident)) (Signed 25-Dec-2017 10:47) Authored: Service, Subjective Data, Objective Data, Assessment and Plan, Signature/Cosignature/Attestation Malik Paul) (Signed 10-Jan-2018 11:36) Authored: Signature/Cosignature/Attestation Co-Signer: Service, Subjective Data, Objective Data, Assessment and Plan, Signature/Cosignature/Attestation Last Updated: 10-Jan-2018 11:36 by Malik Paul) CBC Collected: 12/25/2017 Status: F Source: [facility] 5:24 [facility] REPOSITORY TYPE CODE TESTS RESULT OUT OF [...] RDW-CV 13.2 Performed By: #### CBC #### [address] [id number] MAGNESIUM Collected: 12/25/2017 Status: F Source: [facility] 5:24 [facility] REPOSITORY TYPE CODE TESTS RESULT OUT OF REFERENCE UNITS RANGE LAB MG(LOINC) 1.60 - 2.40 mg/dL MAGNESIUM 1.98 Result Comment: MODERATE HEMOLYSIS DETECTED. The result may be falsely elevated due to hemolysis or other interferents. Clinical correlation is recommended. Repeat testing may be considered. Performed By: #### MG #### [address] [id number] COMPREHENSIVE PANEL Collected: 12/25/2017 Status: F Source: [facility] 5:24 AM [facility]ITALS REPOSITORY TYPE CODE TESTS [...] for ALT. Performed By: #### CMP #### [facility] [address] [place], [place] [phone] ABDOMEN, CMPLT( Observed: 12/24/2017 Status: F Source: [facility] ERECT/DECUB) 9:05 AM [facility]PITALS REPOSITORY Patient Name: EDGARDO DENSON STUDY: ABDOMEN, CMPLT( ERECT/DECUB); 12/24/2017 9:05 am INDICATION: Signs/Symptoms: N/V, possible SBO. COMPARISON: 12/23/2017 ACCESSION NUMBER(S): [id number] ORDERING CLINICIAN: BISI ABDI FINDINGS: The bowel-gas [...] DAILY PROGRESS Observed: 12/24/2017 Status: COMPLETED Source: [facility]URGERY 8:31 AM [facility]IT[facility] REPOSITORY Service: Surgery [...] Serum 3.0 ALB 3.5 Complete Blood Count 12-May-2018 06:00:00 Result Value White Blood Cell Count [...] until signed by attending, Dr. Humberto Abdi, [facility], PGY1 Surgery pager [phone] Signature/Cosignature/Attestation: Attending Attestation I saw and evaluated [...] Paul) CBC Collected: 12/24/2017 Status: F Source: [facility] 6:00 [facility]ITALS REPOSITORY TYPE CODE TESTS RESULT OUT [...] RDW-CV 13.1 Performed By: #### CBC #### [facility] [address] [place], [place] [phone] RENAL FUNCTION PANEL Collected: 12/24/2017 Status: F Source: [facility] 6:00 [facility] REPOSITORY TYPE CODE TESTS RESULT OUT OF [...] ALBUMIN 3.5 Performed By: #### RENAL #### [address] [phone] CLINICAL INTERVENTION - Observed: 12/23/2017 Status: UNK Source: [facility] 1:52 PM [facility]IT[facility] REPOSITORY Pharmacist's Clinical Intervention: Type of recommendation: Day 2 Time Required: 10-30 minutes Electronic Signatures: Kirti Yan () (Signed 23-Dec-2017 13:53) Authored: Pharmacist's Clinical Intervention Last Updated: 23-Dec-2017 13:53 by Kirti Yan () CLINICAL INTERVENTION - Observed: 12/23/2017 Status: UNK Source: [facility] 12:31 PM [facility] REPOSITORY Pharmacist's Clinical Intervention: Active and Pending [...] qty 60 vimpat 100 (bid) on 12/21 ([phone]). Ok to start this. Pharmacist intervention: Contacted physician, Dr. Mayes. Type of recommendation: Alternative dose, Add or initiate drug Expected outcome and basis: Prevention of ADR/Error/Toxicity Time Required: 5 - 10 minutes Electronic Signatures: Ruth Wade) (Signed 23-Dec-2017 12:33) Authored: Pharmacist's Clinical Intervention Last Updated: 23-Dec-2017 12:33 by Ruth Wade (KELTON) ABDOMEN, CMPLT( Observed: 12/23/2017 Status: F Source: [facility] ERECT/DECUB) 11:06 AM [facility]ITALS REPOSITORY Patient Name: EDGARDO DENSON STUDY: ABDOMEN, CMPLT( ERECT/DECUB); 12/23/2017 11:06 am INDICATION: Signs/Symptoms: possible SBO, N/V. COMPARISON: CT abdomen and pelvis 12/22/2017 and 09/20/2015 ACCESSION NUMBER(S): [id number] ORDERING CLINICIAN: BISI ABDI FINDINGS: No dilated [...] DISCHARGE PROFILE2 Observed: 12/23/2017 Status: UNK Source: [facility] 10:30 AM [facility] REPOSITORY Discharge Orders: Anticipated [...] Instructions Edgardo Denson, Thank you for choosing [facility] for your Health Care needs. You may receive a survey in the mail within a couple weeks. Please take the time to complete it and return it. . We ALWAYS appreciate you taking the time to fill it out. Your input is always important to us. Thank you! Kathi Dillon, Registered Nurse, Credit Checker Handouts Given: Topic 1 My Medication Education list Electronic Signatures: Flakito Mayes) (Signed 27-Dec-2017 13:08) Authored: Discharge Orders, Provider FINAL REVIEW of Orders Sonam Sal (CLIN COOR) (Signed 23-Dec-2017 10:40) Authored: Discharge Orders, Appointments, Other Clinician Instructions, Gold Form - Dobby Loom Chain Pegger Summary Last Updated: 27-Dec-2017 13:08 by Flakito Mayes) HISTORY AND PHYSICAL Observed: 12/23/2017 Status: COMPLETED Source: [facility] 9:50 AM [facility] REPOSITORY History of Present [...] PM CONSULT-SURGERY Observed: 12/23/2017 Status: COMPLETED Source: [facility] 9:24 AM [facility] REPOSITORY Service: Service: Surgery [...] until signed by attending, Dr. Humberto Abdi, [facility] [facility], PGY1 Surgery pager [phone] Signature/Cosignature/Attestation: Attending Attestation I saw and evaluated [...] Paul) CBC Collected: 12/23/2017 Status: F Source: [place] 7:14 AM HOSPITALS REPOSITORY TYPE CODE TESTS [...] RDW-CV 13.3 Performed By: #### CBC #### [address] [id number] COMPREHENSIVE PANEL Collected: 12/23/2017 Status: F Source: [place] 7:14 [facility] REPOSITORY TYPE CODE TESTS RESULT OUT OF [...] for ALT. Performed By: #### CMP #### [facility] [address] [place], [place] [id number] PATIENT PROFILE - Observed: 12/23/2017 Status: UNK Source: [place] ADULT 2:41 AM HOSPITALS REPOSITORY Profile: Initial Info: How to be Addressed edgardo Spoken Language Preferred Guyanese (1) Are you currently using the Personal Electronic Health Record or DoApp no Stated Reason for Admission abd pain, [...] Chronic obstructive pulmonary disease Electronic Signatures: Alicia aDvid (RN) (Signed 23-Dec-2017 02:52) Authored: Profile, Additional Information Last Updated: 23-Dec-2017 02:52 by Alicia David (RN) References: 1. Data Referenced From Triage - [...] here ? Patient Transferred from Other Facility ([facility], [facility],etc) no ? Patient Identity Verified By [...] risk with low risk for associated injury [place] Safety Interventions WDL *orient to call system [...] Screen: ? Are there any cultural, spiritual, yazidism practices/values/needs that are important for us to know? no ? Do you want a visit/item from Pastoral Care? no CAGE: Is this an injured patient at a Trauma Center ([facility] / [facility]): no (1) Vaccinations: .Influenza- Influenza Virus: Immunizations, 15-Oct-2013 .Pneumonia- Pneumococcal polysaccharide vaccine-adult: Immunizations, 06-Apr-2013 Vaccination - Influenza Vaccination Screen: ? Is it flu season? (between and ) No Vaccination - Pneumonia Vaccination Screen: ? Patient has received a previous pneumonia vaccine: no/unknown... ? Immunocompetent persons with underlying chronic conditions or reside in rn long term care care facilities none of these conditions ? [...] Assessment Completed by Kathi Dillon, Registered Nurse, Credit Checker ? Readmission Within the Last 30 Days no previous admission in last 30 days ? Primary Care Physician Dr. Ryan Castano [phone] [facility] Adult Information: ? Reason for Admission [...] time. PCP is Dr. Ryan Castano in [place]. She says she has an appt. next Tue/ with him. Pharmacy preference is [facility]. Managing Your Health at Home document and Education material on vomiting blood given and reviewed with patient. Kathi Dillon RN 2 [employer] Credit Checker PLAN: IVFL-may need surgical consult 12/27/17 Patient discharged but is refusing to leave. , bedside nurse and Nurse Property Maintenance Technician in room talking with patient. Will follow. April Contreras Nurse, Credit Checker 12/28/17 Patient stayed overnight and is still discharged. Patient requested new PCP information. CC printed out three internal medicine doctors under her zip code and gave to patient. Bedside nurse reviewed discharge instructions with patient and police escorted patient out. April Contreras Nurse, Credit Checker Final Disposition/Discharge: Disposition/Discharge Information: Discharge/Transfer Information: ? [...] Preferred Language for Discussing Health Care (patient/designee) Guyanese Advanced Directives: ? Advance Directive Medical no [...] Considerations none ? Developmental Considerations none ? Yazdanism Considerations none Learning Assessment (Other Learner): Learning [...] an injured patient at a Trauma Center ([facility] / [facility]): no Electronic Signatures: Marina Mckinney (ABIODUN) (Signed [...] PM ACETAMINOPHEN Collected: 12/22/2017 Status: F Source: [facility] 6:33 [facility]OSPITALS REPOSITORY TYPE CODE TESTS RESULT OUT OF REFERENCE UNITS RANGE LAB ACETA(LOIN 10.0 - 30.0 ug/mL C) ACETAMINOPHEN <10.0 Performed By: #### ACETA #### [facility] [address] [place], [place] [phone] ALCOHOL Collected: 12/22/2017 Status: F Source: [place] 6:33 [facility] REPOSITORY TYPE CODE TESTS RESULT OUT OF REFERENCE UNITS RANGE LAB ALC(LOINC) mg/dL ALCOHOL <10 Result Comment: FOR MEDICAL USE ONLY. . REF VALUES <10 Performed By: #### ALC #### [facility] [address] [place], [place] [id number] CT ABDOMEN AND PELVIS Observed: 12/22/2017 Status: F Source: [place] WITH CONTRAST 5:05 PM [facility] REPOSITORY Patient Name: EDGARDO DENSON STUDY: CT ABDOMEN AND PELVIS WITH CONTRAST; 12/22/2017 5:05 pm INDICATION: 52 y/o F with Signs/Symptoms: bloody vomitus, nausea, abdominal pain. LIMITATIONS: None. ACCESSION NUMBER(S): [id number] ORDERING CLINICIAN: VOLODYMYR SKY TECHNIQUE: After the [...] NEGATIVE BLOOD,STOOL Performed By: #### OCCB1 #### [facility] [address] [place], [place] [id number] CBC Collected: 12/22/2017 Status: F Source: [place] 3:53 PM HOSPITALS REPOSITORY TYPE CODE TESTS [...] RDW-CV 13.2 Performed By: #### CBC #### [facility] [address] [place], [place] [phone] COMPREHENSIVE PANEL Collected: 12/22/2017 Status: F Source: [place] 3:53 PM HOSPITALS REPOSITORY TYPE CODE TESTS [...] for ALT. Performed By: #### CMP #### [facility] [address] [place], [place] [phone] PROVIDER NOTE - ED Observed: 12/22/2017 Status: COMPLETED Source: [facility] 3:28 PM HOSPITALS REPOSITORY Time Seen: ? [...] - ED Observed: 12/22/2017 Status: UNK Source: [place] 2:12 PM HOSPITALS REPOSITORY Quick Triage: Are [...] Accompanied By: self Language: Spoken Language Preferred: Guyanese Reading Language Preferred: Guyanese PRIMARY ASSESSMENT EDGARDO DENSON's primary assessment is [...] (EMT-P) PROGRESS Observed: 12/21/2017 Status: COMPLETED Source: [facility] 1:02 PM [facility]IC [facility] REPOSITORY HNO ID: [id number] Author: Raymond Cornejo Service: (none) Author Type: Physician Type: Progress Notes Filed: 12/22/2017 12:15 PM Note Text: Referring Physician: Ryan Castano MD ([facility]) [facility] [address] [facility] [address] Chief Complaint: Patient presents with: Pain: neck with radiation down bilateral arms, and low back with radiation down bilateral legs HISTORY OF PRESENT ILLNESS: Edgardo Denson presents to [facility] Pain Management Department for the evaluation of diffuse myofascial pain. When asked where her pain is located, she replies: everywhere. The pain started after a work-related injury in 1996. Physical Therapy/Home Exercise: Yes Do you feel safe at home? Yes Occupation: Disabled Any special cultural or yazidism practices that will affect treatment: No Baseline [...] transverse - COLONOSCOP W/ OR W/O [facility] SPEC Colonoscopy - EGD W/O OR W/BRUSH/WASH [...] OF SYSTEMS: CARDIAC: no cardiac arrhythmias, no NC, history of CVA, no heart failure HEENT: [...] performed with Kathi Alfaro RN present as tour bus driver. General appearance: Well appearing, in no acute [...] and (Renata Cooper et. al., Pain 156, [phone] (2015).). A recent randomized trial also confirmed [...] advised to obtain the following dietary supplements siwf-mon-fdtebwv and take as noted below in order [...] avoid all NSAIDs, including those that are deug-tqx-kdehuir, given her history of hemorrhagic gastritis. 9) she was advised to follow-up with her GI specialist for repeat colonoscopy, given her history of villous adenoma. She was offered a referral to GI at this office visit, however, she reported that she wishes to follow-up with her previous medical records analyst. She was informed of the increased risk [...] Nifedipine 1%, and Pentoxifyline 3% faxed to [facility] pharmacy at [phone]. Olya Pearson RN- December 22, 2017 12:14 PM CNOV Observed: 12/21/2017 Status: COMPLETED Source: [place] 12:30 PM [facility] REPOSITORY [facility] EDGARDO DENSON ([id number]) 1965 F Date Time Provider Department 12/21/17 12:30 PM RAYMOND CORNEJO [facility] During your visit today, we recorded the following information about you: Temperature Pulse Respiration Blood pressure 98.4 degrees 95/minute 20/minute 114/79 Weight Height 53.5 kg 1.626 m Raymond Cornejo 12/21/2017 11:12 PM Addendum Referring Physician: Ryan Castano MD ([facility]) [facility] [address] [facility] [address] Chief Complaint: Patient presents with: Pain: neck with radiation down bilateral arms, and low back with radiation down bilateral legs HISTORY OF PRESENT ILLNESS: Edgardo Denson presents to [facility] Pain Management Department for the evaluation of diffuse myofascial pain. When asked where her pain is located, she replies: everywhere. The pain started after a work-related injury in 1996. Physical Therapy/Home Exercise: Yes Do you feel safe at home? Yes Occupation: Disabled Any special cultural or yazidism practices that will affect treatment: No Baseline [...] transverse - COLONOSCOP W/ OR W/O [facility] SPEC Colonoscopy - EGD W/O OR W/BRUSH/WASH [...] OF SYSTEMS: CARDIAC: no cardiac arrhythmias, no NC, history of CVA, no heart failure HEENT: [...] performed with Kathi Alfaro RN present as tour bus driver. General appearance: Well appearing, in no acute [...] and (Renata Cooper et. al., Pain 156, [phone] (2015).). A recent randomized trial also confirmed [...] advised to obtain the following dietary supplements jasi-jxu-pqoglfa and take as noted below in order [...] avoid all NSAIDs, including those that are bpqx-zby-wrwhugh, given her history of hemorrhagic gastritis. 9) she was advised to follow-up with her GI specialist for repeat colonoscopy, given her history of villous adenoma. She was offered a referral to GI at this office visit, however, she reported that she wishes to follow- up with her previous medical records analyst. She was informed of the increased risk [...] Nifedipine 1%, and Pentoxifyline 3% faxed to [facility] pharmacy at [phone]. Olya Pearson RN-BC December 22, 2017 12:14 PM Referring Provider: RYAN CASTANO [[id number]] Allergies As of Date: 12/21/2017 Noted Allergy [...] Order(s):VITAMIN D 25 HYDROXY [SQVITD] Order #: [id number] FUTURE CONSULT TO SLEEP MEDICINE - ADULT [[id number]] Order #: [id number]: 1 CONSULT TO DOBBY LOOM CHAIN PEGGER [301634] Order #: [id number]: 1 CONSULT TO PHYSICAL THERAPY [9073] Order #: [id number]: 1 COMPOUNDED PRESCRIPTIONLow Dose Naltrexone 2 mg [...] Pearson RN 12/21/2017 12:55 PM >> OLYA PEASRON RN TueDecember 21, 2017 12:55 PM Taking prn FLUTICASONE 500 MCG-SALMETEROL 50 MCG/DOSE BLISTR POWDR FOR INHALATION >> Olya Pearson RN 12/21/2017 12:56 PM >> OLYA PEARSON RN TueDecember 21, 2017 12:56 PM Taking prn COMPOUNDED PRESCRIPTION >> Olya Pearson RN 12/21/2017 4:15 PM >> OLYA PEARSON RN TueDecember 21, 2017 4:15 PM Called into [facility] pharmacy on 12/21/2017 at [phone]. Patient provided with the number to set [...] Lethargy [R53.83] INVALID FOR* More... Seizure disorder ([facility]) [G40.909] INVALID FOR*11/12/2017 More... Low BP [I95.9] INVALID FOR*08/31/2017 More... DJD (degenerative joint disease), cervical [M50* Anxiety state, unspecified [F41.1] 04/22/2014 Pain [R52] INVALID FOR*08/31/2017 Priority: B More... Fever [R50.9] INVALID FOR*02/25/2017 Priority: C More... Delirium [R41.0] INVALID FOR*02/25/2017 Priority: A More... Hematemesis [K92.0] INVALID FOR*02/25/2017 Priority: C More... Emphysema of lung ([facility]) [J43.9] INVALID FOR* Smoker [F17.200] INVALID FOR*02/25/2017 Chronic deep vein thrombosis of left femoral ve*INVALID FOR* Vitamin D deficiency [E55.9] INVALID FOR* Psychosis [F29] INVALID FOR* GERD (gastroesophageal reflux disease) [K21.9] INVALID FOR* Asthma [J45.909] INVALID FOR* Orthostatic hypotension [I95.1] INVALID FOR*08/31/2017 More... Psychiatric disorder [F99] INVALID FOR* More... DVT (deep venous thrombosis) ([facility]) [I82.409] INVALID FOR*02/25/2017 FDC current use of anticoagulant [Z79.01] INVALID FOR*02/25/2017 [...] 12/21/17 PROGRESS Observed: 12/03/2017 Status: COMPLETED Source: [place] 9:24 AM [facility] REPOSITORY [facility] ID: [id number] Author: Ryan Castano Service: (none) Author Type: [...] functional. 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 She is pending with Dr. Crystal Murray Pain at [facility]. She believes that he will not Rx for her. 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 Muscle Spasm Chemical dependency ([facility]) Left Arm Weakness Depression Lethargy Djd (Degenerative Joint Disease), Cervical Emphysema of Lung (Hcc) Chronic Deep Vein Thrombosis of Left Femoral Vein ([facility]) Vitamin D Deficiency Psychosis Gerd (Gastroesophageal Reflux Disease) Asthma Psychiatric Disorder Tubulovillous Adenoma of Colon Nausea Delusional Disorder ([facility]) Orthostasis Illicit Drug Use Phencyclidine (Pcp) Use Disorder, Moderate, Dependence ([facility]) Psychogenic Nonepileptic Seizure Current Outpatient Prescriptions: [START [...] TOXICOLOGY SCREEN,UR Collected: 12/02/2017 Status: F Source: [place] 11:00 PM [facility] REPOSITORY TYPE CODE TESTS RESULT [...] the same speci men through Client Services ([phone]) if contacted within 48 hours of initial testing. [1]Substance Abuse and Mental Health Services Administration (2012). Clinical Drug Testing in Primary Care Technical Assistance Publication Series 32. Department of Health and Human Services, [place], p.10. These tests were developed and their performance characteristics determined by [facility]'s [facility] [place] ( [facility]). They have not been cleared or a pproved by the FDA. [facility] is regulated under CLIA as qualified to perform high complexity testing. These tests are used for clinical purposes. They should not be regarded as investigational or for research. Performed By: #### UTOX2 #### [facility] [address] [place], [place] [address] QUANT PAIN PANEL, Collected: 12/02/2017 Status: F Source: [facility] 11:00 PM [facility] REPOSITORY TYPE CODE TESTS RESULT OUT OF REFERENCE UNITS RANGE LAB UQCANN <16 ng/mL <16 Cannabinoid, Urine Result Comment: Tetrahydrocannabinol carboxylic acid (THCA) is a metabolite of egjge-5-gqibywcbpchunfficbms which is the main active component of [...] 4.5 TO 8.0 LAB UQSPGR 1.005-1.020 Specific [place],Ur 1.015 Result Comment: Disregard reference range. REFERENCE [...] developed and its performance characteristics determined by [facility]'s [facility] [place] ([facility]). It has not been cleared or approved by the FDA. -[facility] is regulated under CLIA as qualified to perform high-complexity testing. This test is used for clinical purposes. It should not be regarded as investigational or for research. Performed By: #### UQNTPP #### [facility] [address] [place], [place] [address] CNOV Observed: 12/02/2017 Status: COMPLETED Source: [place] 11:20 AM [facility] REPOSITORY [facility] EDGARD[facility] DENSON ([id number]) 1965 F Date Time Provider Department 12/02/17 11:20 AM [facility] During your visit today, we recorded [...] that she uses any illicits. In ED Apr 11 with lymphadenopathy which she gets recurrently since childhood which prevented her from moving her neck. Better now. She complains bitterly about her pain; I'm not functional. 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 She is pending with Dr. Crystal Murray [place] [address]. She believes that he will not Rx for her. 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 #:[id number] Prescriptions as of 12/02/2017 Sig: CLONAZEPAM 0.5 [...] INVALID FOR* More... DVT (deep venous thrombosis) ([facility]) [I82.409] INVALID FOR*02/25/2017 FDC current use of anticoagulant [Z79.01] INVALID FOR*02/25/2017 More... 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 Syncope [R55] INVALID FOR*08/31/2017 Intentional fentanyl overdose ([facility]) [T40.4X2A] INVALID FOR*08/31/2017 Nausea [R11.0] [...] AND DIFFERENTIAL Collected: 11/23/2017 Status: F Source: [place] 11:52 PM CLINIC OTHER CAMPUS REPOSITORY TYPE [...] Abs High Lymph 4.55 LAB AMONO % [place]% 5.1 LAB AAMONO <0.87 k/uL Abs [place] 0.63 LAB AEOS % Eosin% 2.1 LAB AAEOS <0.46 k/uL Abs Eosin 0.26 LAB ABASO % Baso% 0.5 LAB AABASO <0.11 k/uL Abs Baso 0.06 LAB DTYP DTYPE Auto Diff TROPONIN T Collected: 11/23/2017 Status: F Source: [place] 11:52 PM CLINIC OTHER CAMPUS REPOSITORY TYPE CODE TESTS RESULT OUT OF REFERENCE UNITS RANGE LAB TROPT 0.000-0.029 ng/mL Troponin T <0.010 COMP METABOLIC PANEL Collected: 11/23/2017 Status: F Source: [place] 11:52 PM CLINIC OTHER CAMPUS REPOSITORY TYPE [...] CARE PROFILE-TRICIA Collected: 11/23/2017 Status: F Source: [facility], FH, AVN USE ONLY 11:45 PM CLINIC [...] 1V FRONTAL Observed: 11/23/2017 Status: F Source: [facility] 10:49 PM CLINIC OTHER CAMPUS REPOSITORY * [...] WO IVCON Observed: 11/23/2017 Status: F Source: [place] 10:47 PM CLINIC OTHER CAMPUS REPOSITORY * * *Final Report* * * DATE OF EXAM: Nov 23 2017 10:47PM [facility] 0504 - CT BRAIN WO [...] PROV NOTE Observed: 11/23/2017 Status: COMPLETED Source: [place] 10:22 PM CLINIC OTHER CAMPUS REPOSITORY HNO ID: [id number] Author: Pricilla Cornell MD Service: Emergency Medicine [...] breakthrough seizures as well. 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 I have reviewed the case and plan for the patient. Any pertinent finding or changes in the patient's condition are documented below. Patient counseled about negative results. She is feeling better. All questions answered. Discharged home in stable condition. MD Pricilla Zheng MD 11/24/17 0217 ED NOTE Observed: 11/23/2017 Status: COMPLETED Source: [place] 9:55 PM CLINIC OTHER [facility] REPOSITORY HNO ID: [id number] Author: Rosalina OliverosRn) ABIODUN Helton Service: (none) Author Type: Registered Nurse Type: ED Notes Filed: 11/23/2017 9:56 PM Note Text: Per patient, her daughter told her she was going unresponsive and having grand mal seizures. ED NOTE Observed: 11/23/2017 Status: COMPLETED Source: [place] 9:36 PM [facility] OTHER [place] REPOSITORY HNO ID: [id number] Author: Ingrid OliverosRn) Rick RN Service: (none) Author Type: Registered Nurse Type: ED Notes Filed: 11/23/2017 9:36 PM Note Text: Bed: ED-13 Expected date: Expected time: Means of arrival: Comments: gifty ED NOTE Observed: 11/23/2017 Status: COMPLETED Source: [place] 9:32 PM [facility] OTHER CAMPUS REPOSITORY HNO ID: [id number] Author: Ingrid (Rn) Rick RN Service: (none) Author Type: Registered Nurse Type: ED Notes Filed: 11/23/2017 9:33 PM Note Text: Pt comes in co that her lymph nodes are swollen and she has not been sleeping well. States she has been having seizures per her daughter. PROGRESS Observed: 11/15/2017 Status: COMPLETED Source: [place] 12:28 PM [facility] REPOSITORY HNO ID: [id number] Author: Lorraine (Rn) Billy, ABIODUN Service: (none) [...] PATIENT: PROGRESS Observed: 11/15/2017 Status: COMPLETED Source: [place] 10:49 AM [facility] REPOSITORY HNO ID: [id number] Author: Lorraine (Rn) ABIODUN Cervantes Service: (none) Author Type: Registered Nurse Type: Progress Notes Filed: 11/15/2017 12:43 PM Note Text: 1st attempt to call patient for TCM. No answer. LM to call TCM line ([phone]) Lorraine Cervantes RN, [facility] [phone] [facility] [[id number]] JOSSELINETOROSA Observed: 11/15/2017 Status: COMPLETED Source: [place] 12:00 AM [facility] REPOSITORY Patient Outreach (INTMM[facility]) EDGARDO DENSON ([id number]) 1965 F Date Time Provider Department 11/15/17 LORRAINE CERVANTES (RN) INTMMN During your visit today, we recorded the following information about you: Lorraine Cervantes RN, RN 11/15/2017 12:43 PM Signed 1st attempt to call patient for TCM. No answer. LM to call TCM line ([phone]) Lorraine Cervantes RN, [facility] [phone] [facility] [[id number]] Lorraine Cervantes RN, RN 11/15/2017 12:43 PM [...] (deep venous thrombosis) (HCC) [I82.409] INVALID FOR*02/25/2017 FDC current use of anticoagulant [Z79.01] INVALID FOR*02/25/2017 [...] 11/15/17 CONSULT Observed: 11/12/2017 Status: COMPLETED Source: [place] 3:55 PM CLINIC OTHER CAMPUS REPOSITORY O ID: [id number] Author: Carlos Stafford Service: Psychiatry Author Type: [...] transverse - COLONOSCOP W/ OR W/O [facility] SPEC Colonoscopy - EGD W/O OR W/BRUSH/WASH [...] 145/90 Pulse: (!) 93 92 101 Resp: Temp: 36.7 ?C (98 ?F) 36.3 ?C [...] PM CNDS Observed: 11/12/2017 Status: COMPLETED Source: [place] 3:21 PM CLINIC OTHER CAMPUS REPOSITORY O ID: [id number] Author: Gilberto Mei Service: Hospital Medicine Author Type: Physician Type: Discharge Summaries Filed: 11/12/2017 4:39 PM Note Text: DISCHARGE SUMMARY Against Medical Advice PATIENT NAME: Edgardo Denson ADMISSION DATE: 11/12/2017 DISCHARGE DATE: 11/12/2017 ATTENDING PHYSICIAN: Liza Angeles REASON FOR HOSPITALIZATION: pain al over, fall [...] weeks then stop. Earliest Fill Date: 11/02/17 Print RX, Disp-3 Patch, R-0, Long-term Dx: [...] Time Provider Department Center 11/18/2017 3:15 PM [id number] [facility] 11/18/2017 3:15 PM [id number], [facility] TIME OF CARE (Use first blank if not applicable): TIME OF CARE: Discharge Management: I personally spent less than 30 minutes involved in the discharge management of this patient. SIGNATURE: Gilberto Mei MD PATIENT NAME: Edgardo Denson DATE: November 12, 2017 TIME: 3:21 PM PAGER/CONTACT #: [phone] CONSULT Observed: 11/12/2017 Status: COMPLETED Source: [place] 2:36 PM CLINIC OTHER CAMPUS REPOSITORY O ID: [id number] Author: Austin Page Service: Pain Management Author Type: Physician Type: Consults Filed: 11/12/2017 2:43 PM Note Text: PAIN MANAGEMENT CONSULT PROGRESS NOTES Patient Name: Edgardo Denson DATE of SERVICE: November 12, 2017 TIME of SERVICE: 2:36 PM CONSULTING PHYSICIAN: Austin Page MD CHIEF COMPLAINT: Narcotic withdrawal HISTORY OF PRESENT ILLNESS: Edgardo Denson is a 52 year old female, who is admitted at for the evaluation and treatment of Narcotic [...] transverse - COLONOSCOP W/ OR W/O [facility] SPEC Colonoscopy - EGD W/O OR W/BRUSH/WASH [...] children: 1 Occupational History Occupation Employer Comment [employer]* Social History Main Topics Smoking status: Current [...] 11/12/2017 Neut% 74.7 11/11/2017 Lymph% 19.6 11/11/2017 [place]% 4.6 11/11/2017 Eosin% 0.9 11/11/2017 Baso% 0.2 11/11/2017 Abs Neut (ANC) 10.27 11/11/2017 Abs [place] 0.63 11/11/2017 Abs Eosin 0.13 11/11/2017 Abs [...] currently on percocet PRN. Recommend to consult warhead maintenance specialist, sign off Ryan Castano MD Thank you for referring Edgardo Denson and allowing me to participate in this patient's care. If you have any questions about my evaluation or treatment plan, please do no hesitate to call me at your convenience. Austin Page MD cc: Ryan Castano MD PT ED Observed: 11/12/2017 Status: COMPLETED Source: [place] 2:34 PM [facility] REPOSITORY HNO ID: [id number] Author: Carolann Stoner (Pharmacist) Service: Pharmacy Author [...] NURSING PROG Observed: 11/12/2017 Status: COMPLETED Source: [place] 1:34 PM [facility] REPOSITORY HNO ID: [id number] Author: Cece OliverosRn) ABIODUN Dunn Service: (none) Author Type: Registered Nurse Type: Nursing Progress Note Filed: 11/12/2017 1:38 PM Note Text: Nursing Progress Note Patient Name: Edgardo Denson Patient Location: [place] [address] [id number] Daily Note: Sitting with patient and she requested one time dose of additional pain medication. Paged hospitalist, dose not want to give any other medications at this time, awaiting pain management input. Patient ordered zyprexa by psych, patient given information on drug and is refusing to take medication. This note was completed by: Cece Dunn RN URINALYSIS WITH Collected: 11/12/2017 Status: F Source: [facility] 11:41 AM [facility] OTHER [facility] REPOSITORY TYPE CODE TESTS RESULT OUT OF RANGE REFERENCE UNITS LAB UCOL Yellow Color Yellow LAB [facility] Clear Clarity Abnormal Hazy Alert LAB UGLUC Negative mg/dL Glucose, Urine Negative LAB UBIL Negative Bilirubin, Urine Negative LAB UKET Negative Ketones, Urine Negative LAB USPG 1.003-1.030 Specific [place], Ur 1.030 LAB UHGB Negative Hemoglobin/Blood, Negative [...] TOXICOLOGY SCREEN,UR Collected: 11/12/2017 Status: F Source: [place] 11:41 AM [facility] OTHER [facility] REPOSITORY TYPE CODE TESTS RESULT OUT OF [...] the same speci men through Client Services ([phone]) if contacted within 48 hours of initial testing. [1]Substance Abuse and Mental Health Services Administration (2012). Clinical Drug Testing in Primary Care Technical Assistance Publication Series 32. Department of Health and Human Services, [place], p.10. Observed: 11/12/2017 Status: F Source: [place] FECAL LACTOFERRIN 11:39 AM [facility] OTHER [facility] REPOSITORY Sp. Request/Comment: - Specimen received in sterile container. Test Result - Positive for lactoferrin, which may indicate presence of fecal white blood cells Performed By: #### STLWBC #### [facility] [address] [place], [place] [id number] NURSING PROG Observed: 11/12/2017 Status: COMPLETED Source: [place] 8:10 AM [facility] OTHER [facility] REPOSITORY HNO ID: [id number] Author: Jerica (Rn) ABIODUN Ponce Service: (none) Author Type: Registered Nurse Type: Nursing Progress Note Filed: 11/12/2017 4:47 PM Note Text: Nursing Progress Note Patient Name: Edgardo Denson Patient [facility]-1 Daily Note: Text page sent to attending [...] take what is ordered at this time. Cattle Inspector Nurse Property Maintenance Technician will speak with the patient again. Sitter [...] to be Dr Sams. 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 From 5pm - 7am, please contact the Night Hospitalist on pager [phone] for patient issues. 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 Service: General Internal [...] AM PROTIME Collected: 11/12/2017 Status: F Source: [place] 5:53 AM [facility] OTHER CAMPUS REPOSITORY TYPE CODE TESTS RESULT OUT OF RANGE REFERENCE UNITS LAB PSEC 9.7-13.0 sec PT Sec 12.0 LAB INR 0.9-1.3 PT INR 1.2 Result Comment: Vitamin K Antagonist (VKA) Therapeutic Range: INR 2 to 3 (Target INR of 2.5) Note: For patients treated with VKA drugs, such as warfarin, the [place] [employer] 2012 Guideline recommends [...] Chest 2012, 141:7S-47S Adam RA, et al. [facility] 2017, 70: 252-289 APTT Collected: 11/12/2017 Status: F Source: [place] 5:53 AM [facility] REPOSITORY TYPE CODE TESTS RESULT OUT [...] laboratory APTT reagent in use throughout the [facility]. CBC Collected: 11/12/2017 Status: F Source: [place] 5:53 AM [facility] OTHER CAMPUS REPOSITORY TYPE CODE TESTS RESULT [...] METABOLIC PANEL Collected: 11/12/2017 Status: F Source: [place] 5:53 AM [facility] OTHER CAMPUS REPOSITORY TYPE [...] 16 MAGNESIUM Collected: 11/12/2017 Status: F Source: [place] 5:53 AM [facility] OTHER CAMPUS REPOSITORY TYPE CODE TESTS RESULT OUT OF REFERENCE UNITS RANGE LAB MG 1.7-2.6 mg/dL Magnesium 2.4 NURSING PROG Observed: 11/12/2017 Status: COMPLETED Source: [place] 12:57 AM [facility] OTHER CAMPUS REPOSITORY HNO ID: [id number] Author: Lona (Rn) ABIODUN Scanlon Service: (none) Author Type: Registered Nurse Type: Nursing Progress Note Filed: 11/12/2017 8:29 AM Note Text: Nursing Progress Note Patient Name: Edgardo Denson Patient Location: [facility] Daily Note:Pt arrived from ED via cart. [...] and pt stated she does not trust [facility] pain management. 0330 Daughter called for update on her mother. Asked daughter for clarification about the fentanyl patch. She stated they have not even picked them up from pharmacy yet due to unavailablity. Per daughter police were called to the house 11/10 and [facility] due to manic event [...] 0700 Security and NOM found a cigarette hearing dog trainer, cigarettes, pills ( venlafaxine, k+, spironolactone, famotione, doyclomine). Items were placed in the patients home bin. Also a blunt tip syringe was found and deposited in the sharps container. 0702 Pt found unresponsive on the floor by PCNA. Rapid called. See rapid documentation. 0724 Day shift hospitalist updated on pts fall. This note was completed by: Lona Scanlon RN ED PROV NOTE Observed: 11/12/2017 Status: COMPLETED Source: [place] 12:12 AM [facility] OTHER CAMPUS REPOSITORY O ID: [id number] Author: Best Parker DO Service: (none) Author [...] transverse - COLONOSCOP W/ OR W/O [facility] SPEC Colonoscopy - EGD W/O OR W/BRUSH/WASH [...] seizure. Nausea, vomiting and diarrhea most likely access representative of opiate withdrawal. The patient is [...] stable SIGNATURE: Best Parker, DO Best Parker, DO 11/12/17 0015 HISTORY PHYSICAL Observed: 11/11/2017 Status: COMPLETED Source: [place] 11:06 PM [facility] OTHER CAMPUS REPOSITORY HNO ID: [id number] Author: Liza Angeles Service: Hospital Medicine Author Type: Physician Type: HANDP Filed: 11/12/2017 5:52 AM Note Text: HOSPITAL MEDICINE HISTORY AND PHYSICAL PCP: Ryan Castano MD NIGHT AND WEEKEND COVERAGE: Patient admitted to [facility] From 7am - 5pm, please contact pager Treatment team for patient issues. From 5pm - 7am, please contact the Night Hospitalist on pager [phone] for patient issues. SUBJECTIVE Chief Complaint: Chronic [...] transverse - COLONOSCOP W/ OR W/O [facility] SPEC Colonoscopy - EGD W/O OR W/BRUSH/WASH [...] Liver Function, Amylase, AND Lipase Recent Labs 11/11/17211311/11/172101 TPROT -- 9.8* ALB -- 5.1* ALT [...] of care discussed with: Patient SIGNATURE: Liza Angeles MD PATIENT NAME: Edgardo Denson DATE: November 11, 2017 TIME: 11:06 PM PAGER/CONTACT #: [id number] BRAIN WO IVCON Observed: 11/11/2017 Status: F Source: [place] 10:31 PM [facility] OTHER CAMPUS REPOSITORY * * *Final Report* * * DATE OF EXAM: Nov 11 2017 10:31PM [facility] 0504 - CT BRAIN WO IVCON / PROCEDURE REASON: Syncope * * * * Physician Interpretation * * * * RESULT: EXAMINATION: CT BRAIN WO IVCON HISTORY: Syncope. This information is taken directly from the radiology orderly system. TECHNIQUE: Serial axial images without IV [...] CARE PROFILE-TRICIA Collected: 11/11/2017 Status: F Source: [place] HIL, FH, AVN USE ONLY 9:14 PM CLINIC [...] AND DIFFERENTIAL Collected: 11/11/2017 Status: F Source: [place] 9:02 PM [facility] OTHER CAMPUS REPOSITORY TYPE [...] k/uL Abs Lymph 2.69 LAB AMONO % [place]% 4.6 LAB AAMONO <0.87 k/uL Abs [place] 0.63 LAB AEOS % Eosin% 0.9 LAB AAEOS <0.46 k/uL Abs Eosin 0.13 LAB ABASO % Baso% 0.2 LAB AABASO <0.11 k/uL Abs Baso 0.03 LAB DTYP DTYPE Auto Diff TROPONIN T Collected: 11/11/2017 Status: F Source: [place] 9:02 PM [facility]IN[facility] OTHER CAMPUS REPOSITORY TYPE CODE TESTS RESULT OUT OF REFERENCE UNITS RANGE LAB TROPT 0.000-0.029 ng/mL Troponin T <0.010 COMP METABOLIC PANEL Collected: 11/11/2017 Status: F Source: [place] 9:02 PM [facility] OTHER CAMPUS REPOSITORY TYPE CODE TESTS RESULT [...] GFR. ETHANOL Collected: 11/11/2017 Status: F Source: [place] 9:02 PM [facility] OTHER CAMPUS REPOSITORY TYPE CODE TESTS RESULT OUT OF REFERENCE UNITS RANGE LAB ALCO <11 mg/dL Ethanol <11 MAGNESIUM Collected: 11/11/2017 Status: F Source: [place] 9:02 PM [facility] OTHER CAMPUS REPOSITORY TYPE CODE TESTS RESULT OUT OF REFERENCE UNITS RANGE LAB MG 1.7-2.6 mg/dL High Magnesium 2.7 XR CHEST 1V FRONTAL Observed: 11/11/2017 Status: F Source: [facility] 7:55 PM [facility] OTHER CAMPUS REPOSITORY * * *Final Report* [...] TRIAGE NOTE Observed: 11/11/2017 Status: COMPLETED Source: [place] 7:47 PM [facility] OTHER CAMPUS REPOSITORY HNO ID: [id number] Author: Alessandra Conde (Pa) Service: Emergency Medicine Author Type: Physician Cattle Inspector Type: ED Triage Notes Filed: 11/11/2017 7:49 [...] COUNT Collected: 11/09/2017 Status: F Source: THE [facility] 7:28 PM SYSTEM REPOSITORY TYPE CODE TESTS [...] 8.1 Performed By: #### CBC #### [facility] [address] [place], [address] MAGNESIUM Collected: 11/09/2017 Status: F [facility]: [facility] 7:28 PM SYSTEM REPOSITORY TYPE CODE TESTS RESULT OUT OF RANGE REFERENCE UNITS LAB mag 1.6-2.8 mg/dL MG 1.8 Performed By: #### MG, ETOH, CH8 #### [facility] [address] [place], [address] ETHANOL, SERUM Collected: 11/09/2017 Status: F Source: THE [facility] 7:28 PM SYSTEM REPOSITORY TYPE CODE TESTS RESULT OUT OF REFERENCE UNITS RANGE LAB ETHANOL None Detected mg/dL ETHANOL < 10 Performed By: #### MG, ETOH, CH8 #### [facility] [address] [place], [address] BASIC METABOLIC PANEL Collected: 11/09/2017 Status: F Source: THE [facility] 7:28 PM SYSTEM REPOSITORY TYPE CODE TESTS [...] By: #### MG, ETOH, CH8 #### [facility] [address] [place] [address], [address] URINALYSIS - CHEMISTRY Collected: 11/09/2017 Status: F Source: THE ([facility]) 7:28 PM [facility] SYSTEM REPOSITORY TYPE CODE TESTS RESULT OUT [...] mg/dL GLUCOSE, Negative URINE Performed By: #### [id number] #### [facility] [address] [place], [address] HCG URINE Collected: 11/09/2017 Status: F Source: THE [facility] 7:28 PM SYSTEM REPOSITORY TYPE CODE TESTS RESULT OUT OF REFERENCE UNITS RANGE LAB B9 Negative HCG, Negative URINE Performed By: #### UR BETA #### [facility] [address] [place], [address] TOXICOLOGY SCREEN, Collected: 11/09/2017 Status: F Source: THE UNCONFIRMED 7:28 PM [facility] Order Comment: This toxicology screen [...] toxicology consultation please call the laboratory at [phone]. 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 She blames pain physicians at [facility] for getting her addicted to the pain [...] Anemia, Unspecified Other Pulmonary Embolism and Infarction Fci (Current) Use of Anticoagulants Muscle Spasm Iron [...] MD CNOV Observed: 10/31/2017 Status: COMPLETED Source: [place] 4:20 PM [facility] REPOSITORY Office Visit (FAMPBD) EDGARDO DENSON ([id number]) 1965 F Date Time Provider Department 10/31/17 4:20 PM RYAN CASTANO FAMPBD During your visit today, we recorded the following information about you: Pulse Blood pressure Weight 91/minute 110/77 54.4 kg Ryan Castano MD 10/31/2017 8:22 PM Addendum Edgardo Foss Jarett is a 52 year old female [...] 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 Muscle Spasm Iron Defic Anemia NEC Other Chronic Pain Chemical Dependency ([facility]) Left Arm Weakness Chest Pain Depression Lethargy Seizure disorder ([facility]) Djd (Degenerative Joint Disease), Cervical Emphysema of Lung ([facility]) Chronic Deep Vein Thrombosis of Left Femoral Vein ([facility]) Vitamin D Deficiency Psychosis Gerd (Gastroesophageal Reflux Disease) Asthma Psychiatric Disorder Tubulovillous Adenoma of Colon Nausea Delusional Disorder ([facility]) Current Outpatient Prescriptions on File Prior to [...] psychiatrically complex. Will refer to Violet conner SW. Ryan Castano MD Referring Provider: SELF [[id number]] [...] Order(s):ECG COMPLETE W INTERPRETATION [ECG01] Order #: [id number] FUTURE fentaNYL (DURAGESIC) 12 mcg/hr ga96Eva 1 patch every 3 days with 25 [...] TO PAIN MGT ANESTHESIA [19991120] Order #: [id number]: 1 Prescriptions as of 10/31/2017 Sig: FENTANYL [...] INVALID FOR* More... 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 Seizure ([facility]) [R56.9] INVALID FOR*02/25/2017 Tubulovillous adenoma of colon [D12.6] More... Syncope [R55] INVALID FOR*08/31/2017 Intentional fentanyl overdose ([facility]) [T40.4X2A] INVALID FOR*08/31/2017 Nausea [R11.0] INVALID FOR* Delusional disorder ([facility]) [F22] INVALID FOR* More... Prescriptions ordered this [...] 10/31/17 PROGRESS Observed: 2017 Status: COMPLETED Source: [place] 3:07 PM [facility] REPOSITORY HNO ID: [id number] Author: Ryan Castano Service: (none) Author Type: Physician Type: Progress Notes Filed: 10/08/2017 12:05 PM Note Text: Edgardo Denson is a 52 year old female who presents to followup accompanied by her daughter and grandson,Juan. At the last visit with me on [...] ICD10: Z01.419 She is to see a SENIOR RESEARCH EXECUTIVE for pelvic exam. ? 5. Breast cancer [...] to calm down. D/W daughter on cell [phone] who states she believes that her mom was trying to harm herself and has taken handfuls of her klonopin recently as well She is very c/w her mom's safety as she did this while babysitting her 1.5 year old grand daughter Notes document transfer to psychiatry. She reports that she was sent from the emergency Department to [place] psychiatric facility for 2 days. 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 ([facility]) Vitamin D Deficiency Psychosis Gerd (Gastroesophageal Reflux Disease) Asthma Psychiatric Disorder Tubulovillous Adenoma of Colon Nausea Delusional Disorder ([facility]) Current Outpatient Prescriptions on File Prior to [...] ED NOTE Observed: 09/06/2017 Status: COMPLETED Source: [place] 1:27 PM [facility] REPOSITORY HNO ID: [id number] Author: Holley Alcantar) ABIODUN Juarez Service: (none) Author Type: Registered Nurse Type: ED Notes Filed: 09/06/2017 1:28 PM Note Text: Pt yelling that she did not get her Klonopin, phenergan, Percocet or Pradaxa. Dr. Parker was in the room and spoke to pt and stated she was going now with transport. ED NOTE Observed: 09/06/2017 Status: COMPLETED Source: [place] 12:33 PM [facility]INIC OTHER [facility] REPOSITORY HNO ID: [id number] Author: Holley Alcantar) ABIODUN Juarez Service: (none) Author Type: Registered Nurse Type: ED Notes Filed: 09/06/2017 12:34 PM Note Text: Asked pt concerning if she wanted her daughter notified. Pt getting very upset and wants to have a psychiatrist talk to her now. Pt yelling. Dr. Parker aware. ED NOTE Observed: 09/06/2017 Status: COMPLETED Source: [place] 12:04 PM [facility] REPOSITORY HNO ID: [id number] Author: Holley OliverosRn) ABIODUN Juarez Service: (none) Author Type: Registered Nurse Type: ED Notes Filed: 09/06/2017 12:05 PM Note Text: Report given to Akilah and Gabapenin given per order. ED NOTE Observed: 09/06/2017 Status: COMPLETED Source: [place] 11:30 AM [facility] HNO ID: [id number] Author: Holley OliverosRn) ABIODUN Juarez Service: (none) Author Type: Registered Nurse Type: ED Notes Filed: 09/06/2017 11:31 AM Note Text: Spoke to Jaja from intake requesting pink slip to be faxed. ED NOTE Observed: 09/06/2017 Status: COMPLETED Source: [place] 11:15 AM [facility] HNO ID: [id number] Author: Holley OliverosRn) ABIODUN Juarez Service: (none) Author Type: Registered Nurse Type: ED Notes Filed: 09/06/2017 11:27 AM Note Text: Assumed care. Pt stated she doesn't want to go to psych facility. She stated she doesn't want to harm herself. She stated her daughter needs the help. Pt stated she needs her medications for seizures. ED NOTE Observed: 09/06/2017 Status: COMPLETED Source: [place] 10:25 AM [facility] HNO ID: [id number] Author: Rossana OliverosRn) ABIODUN Andrade Service: (none) Author Type: Registered Nurse Type: ED Notes Filed: 09/06/2017 10:30 AM Note Text: Dr. Parker at bedside to speak with patient. Patient awake and verbalizing, has been ambulating in room. Patient tearful but cooperative. ED NOTE Observed: 09/06/2017 Status: COMPLETED Source: [place] 10:10 AM [facility] REPOSITORY HNO ID: [id number] Author: Chantel lOiverosPcnaNAIMA Gutierrez Service: (none) Author Type: Patient Care Drainage Inspector Type: ED Notes Filed: 09/06/2017 10:10 AM Note Text: PT walked around room, brushed her teeth. PT asking to walk to the . Dr. Parker aware ED NOTE Observed: 09/06/2017 Status: COMPLETED Source: [place] 8:43 AM [facility] REPOSITORY HNO ID: [id number] Author: Rossana OliverosRn) Raymond, RN Service: (none) Author Type: Registered Nurse Type: ED Notes Filed: 09/06/2017 9:42 AM Note Text: Intake personnel called requesting documentation and update on patient's condition once awaken, per Intake [place]. Patient awakened A AND O x3. Patient offered breakfast but declined. Patient reports does not want to harm herself or anyone else, reports that her daughter is lying about her wanting to harm herself. Patient asked why she took extra effexor last night, patient reports because she missed some doses. Patient aware she is to be [facility]. Patient asked about [...] PROV NOTE Observed: 09/06/2017 Status: COMPLETED Source: [place] 7:44 AM [facility] REPOSITORY HNO ID: [id number] Author: Pricilla Cornell MD Service: Emergency Medicine [...] ED NOTE Observed: 09/06/2017 Status: COMPLETED Source: [place] 7:15 AM [facility] REPOSITORY HNO ID: [id number] Author: Rossana (Rn) Raymond, RN Service: (none) Author Type: Registered Nurse Type: ED Notes Filed: 09/06/2017 8:21 AM Note Text: Assumed care of patient at this time. Patient appears to be sleeping, respirations even and unlabored. Patient on monitor. Suicide precautions remain in place. Sitter at bedside. ED NOTE Observed: 09/06/2017 Status: COMPLETED Source: [place] 6:11 AM [facility] REPOSITORY HNO ID: [id number] Author: Samantha OliverosRnJessica Allen RN Service: (none) Author Type: Registered Nurse Type: ED Notes Filed: 09/06/2017 6:12 AM Note Text: Pt remains asleep but wakes when name called. Pt aware of where she is at and the year. Pt falls back asleep. ED NOTE Observed: 09/06/2017 Status: COMPLETED Source: [place] 5:48 AM [facility] REPOSITORY HNO ID: [id number] Author: NAIMA Vaughan (Pcna) Service: (none) Author Type: Patient Care Drainage Inspector Type: ED Notes Filed: 09/06/2017 5:51 AM Note Text: Pt continues to sleep; but awake for vitals ED NOTE Observed: 09/06/2017 Status: COMPLETED Source: [place] 5:02 AM [facility] REPOSITORY HNO ID: [id number] Author: NAIMA Vaughan (Pcna) Service: (none) Author Type: Patient Care Drainage Inspector Type: ED Notes Filed: 09/06/2017 5:05 AM Note Text: Sitter called out to pt-pt responded ED NOTE Observed: 09/06/2017 Status: COMPLETED Source: [place] 4:17 AM [facility] REPOSITORY HNO ID: [id number] Author: NAIMA Vaughan (Pcna) Service: (none) Author Type: Patient Care Drainage Inspector Type: ED Notes Filed: 09/06/2017 4:20 AM Note Text: Sitter remains at bedside; door lock; blankets provided ED NOTE Observed: 09/06/2017 Status: COMPLETED Source: [place] 4:15 AM [facility] REPOSITORY HNO ID: [id number] Author: NAIMA Vaughan (Pcna) Service: (none) Author Type: Patient Care Drainage Inspector Type: ED Notes Filed: 09/06/2017 4:17 AM Note Text: Pt is breathing normally; being able to turn to side to side ED NOTE Observed: 09/06/2017 Status: COMPLETED Source: [place] 4:10 AM [facility] REPOSITORY HNO ID: [id number] Author: Samantha OliverosRnJessica Allen RN Service: (none) Author Type: Registered Nurse Type: ED Notes Filed: 09/06/2017 4:20 AM Note Text: Cece from [facility] called to speak with patient. Patient will arouse when name called and open eyes but declines to speak with intake due to fatigue. Cece from [facility] made aware that pt declined is to speak on the phone at this time due to fatigue. Dr Cornell made aware of this. ED NOTE Observed: 09/06/2017 Status: COMPLETED Source: [place] 3:37 AM [facility] REPOSITORY HNO ID: [id number] Author: NAIMA Vaughan (Pcna) Service: (none) Author Type: Patient Care Drainage Inspector Type: ED Notes Filed: 09/06/2017 3:37 AM Note Text: Pt awaken to taken some medication ED NOTE Observed: 09/06/2017 Status: COMPLETED Source: [place] 2:20 AM [facility] REPOSITORY HNO ID: [id number] Author: Samantha OliverosRn) ABIODUN Allen Service: (none) Author Type: Registered Nurse Type: ED Notes Filed: 09/06/2017 2:27 AM Note Text: Cece from [facility] called to interview patient over the telephone. Pt sleeping at this time from prior medications given for agitation. Pt wakes, but is unable to stay awake to speak on the phone and carry on a conversation at this time due to previous medication given for agitation. When pt wakes and is able to have a conversation will call Cece back at [facility] [phone]. ED NOTE Observed: 09/06/2017 Status: COMPLETED Source: [place] 2:15 AM [facility] REPOSITORY HNO ID: [id number] Author: Samantha OliverosRn) ABIODUN Allen Service: (none) Author Type: Registered Nurse Type: ED Notes Filed: 09/06/2017 2:16 AM Note Text: Daughter called for update on her mother's status. Daughter made aware that pt is waiting [facility] a [facility]. ED NOTE Observed: 09/06/2017 Status: COMPLETED Source: [place] 12:26 AM [facility] REPOSITORY HNO ID: [id number] Author: Samantha OliverosRn) ABIODUN Allen Service: (none) Author Type: Registered Nurse Type: ED Notes Filed: 09/06/2017 12:26 AM Note Text: Pt straight cath for urine. Urine collected and sent to lab. URINALYSIS WITH Collected: 09/06/2017 Status: F Source: [facility] 12:26 AM [facility] OTHER CAMPUS REPOSITORY TYPE CODE TESTS RESULT OUT OF RANGE REFERENCE UNITS LAB UCOL Yellow Color Abnormal Straw Alert LAB [facility] Clear Clarity Clear LAB UGLUC Negative mg/dL Glucose, Urine Negative LAB UBIL Negative Bilirubin, Urine Negative LAB UKET Negative Ketones, Urine Negative LAB [facility] 1.003-1.030 Specific [place], Ur 1.015 LAB UHGB Negative Hemoglobin/Blood, Negative [...] TOXICOLOGY SCREEN,UR Collected: 09/06/2017 Status: F Source: [place] 12:26 AM [facility] OTHER CAMPUS REPOSITORY TYPE CODE TESTS RESULT [...] the same speci men through Client Services ([phone]) if contacted within 48 hours of initial tsting. [1]Substance Abuse and Mental Health Services Administration (2012). Clinical Drug Testing in Primary Care Technical Assistance Publication Series 32. Department of Health and Human Services, [place], p.10. ED NOTE Observed: 09/06/2017 Status: COMPLETED Source: [place] 12:01 AM [facility] REPOSITORY HNO ID: [id number] Author: Samantha OliverosRn) ABIODUN Allen Service: (none) Author Type: Registered Nurse Type: ED Notes Filed: 09/06/2017 12:12 AM Note Text: Pt crying and yelling out loud. Pt yelling send the police to my house because my daughter is going to steal all my money DR Frank ordered for pt to be medicated at this time. ED NOTE Observed: 09/05/2017 Status: COMPLETED Source: [place] 11:55 PM [facility] REPOSITORY HNO ID: [id number] Author: Samantha OliverosRn) ABIODUN Allen Service: (none) Author Type: Registered Nurse Type: ED Notes Filed: 09/05/2017 11:55 PM Note Text: Dr Frank gave permission for pt to take her own Pradaxa. This nurse gave pt 150mg PO Pradaxa. ED NOTE Observed: 09/05/2017 Status: COMPLETED Source: [place] 11:41 PM [facility] REPOSITORY HNO ID: [id number] Author: NAIMA Vaughan (Pcna) Service: (none) Author Type: Patient Care Drainage Inspector Type: ED Notes Filed: 09/05/2017 11:45 PM Note Text: Pt asking to call the police so they can go and get her money; PROTIME Collected: 09/05/2017 Status: F Source: [place] 11:06 PM [facility] REPOSITORY TYPE CODE TESTS RESULT OUT OF RANGE REFERENCE UNITS LAB PSEC 9.7-13.0 sec PT Sec 10.2 LAB INR 0.9-1.3 PT INR 1.0 Result Comment: Vitamin K Antagonist (VKA) Therapeutic Range: INR 2 to 3 (Target INR of 2.5) Note: For patients treated with VKA drugs, such as warfarin, the [place] [employer] 2012 Guideline recommends [...] Chest 2012, 141:7S-47S Adam RA, et al. [facility] 2017, 70: 252-289 ACETAMINOPHEN Collected: 09/05/2017 Status: F Source: [place] 11:06 [facility] OTHER CAMPUS REPOSITORY TYPE CODE TESTS RESULT OUT OF REFERENCE UNITS RANGE LAB ACETM 10-20 ug/mL Acetaminophen <15 Result Comment: Reference ranges and high/low indicator flags are provided as general guidelines only. The treating physician must determine appropriate target levels/dosing based on the specific clinical situation. SALICYLATE Collected: 09/05/2017 Status: F Source: [place] 11:06 PM [facility] OTHER CAMPUS REPOSITORY TYPE CODE TESTS RESULT OUT OF REFERENCE UNITS RANGE LAB SALI 2-29 mg/dL Low Salicylate <1 Result Comment: Reference ranges and high/low indicator flags are provided as general guidelines only. The treating physician must determine appropriate target levels/dosing based on the specific clinical situation. COMP METABOLIC PANEL Collected: 09/05/2017 Status: F Source: [place] 11:06 PM [facility] OTHER CAMPUS REPOSITORY TYPE CODE TESTS RESULT [...] AND DIFFERENTIAL Collected: 09/05/2017 Status: F Source: [place] 11:06 PM [facility] OTHER [facility]AMPUS REPOSITORY TYPE [...] k/uL Abs Lymph 2.71 LAB AMONO % [place]% 4.0 LAB AAMONO <0.87 k/uL Abs [place] 0.39 LAB AEOS % Eosin% 2.0 LAB [...] Diff ETHANOL Collected: 09/05/2017 Status: F Source: [place] 11:06 PM [facility] OTHER CAMPUS REPOSITORY TYPE CODE TESTS RESULT OUT OF REFERENCE UNITS RANGE LAB ALCO <11 mg/dL Ethanol <11 CK, TOTAL AND CKMB Collected: 09/05/2017 Status: F Source: [place] 11:06 PM [facility] OTHER CAMPUS REPOSITORY TYPE CODE TESTS RESULT OUT OF REFERENCE UNITS RANGE LAB CK 42-196 U/L 80 CK LAB MB 0-8.8 ng/mL MB 3.2 LAB CKMBRI 0.0-4.0 % CK CK MB MB % not % reported with CK <100 U/L. TSH Collected: 09/05/2017 Status: F Source: [place] 11:06 PM [facility] OTHER CAMPUS REPOSITORY TYPE CODE TESTS RESULT OUT OF RANGE REFERENCE UNITS LAB TSH 0.400-5.500 uU/mL TSH 5.280 Result Comment: If the patient is , TSH reference range varies by gestational period: First Trimester 0.100-2.500 uU/mL Second Trimester 0.200-3.000 uU/mL Third Trimester 0.300-3.000 uU/mL References: 1. De Gloria L, Vitaly M, Aleks EK, et al. Management of Thyroid Dysfunction during and : An Endocrine Society Clinical Practice Guideline. J Clin Endocrinol Metab, 2012:97:7655-2437. 2. Ulysses MCKENNA. Overview of thyroid disease in . UpToDate. 2016. Accessed on January 30, 2016. ED NOTE Observed: 09/05/2017 Status: COMPLETED Source: [place] 11:00 PM [facility] OTHER [facility]AMP[facility] REPOSITORY HNO ID: [id number] Author: Samantha (Rn) ABIODUN Allen Service: (none) Author Type: Registered Nurse Type: ED Notes Filed: 09/05/2017 11:00 PM Note Text: Labs drawn and sent. ED PROV NOTE Observed: 09/05/2017 Status: COMPLETED Source: [place] 10:56 PM [facility] OTHER CAMP[facility] REPOSITORY O ID: [id number] Author: Eulalia Frank DO Service: (none) Author [...] ST-T segments Interpretation by ED physician 09/05 977 D/W daughter on cell [phone] who states she believes that her mom [...] patients care The LIP should follow the [facility] patient management guidance referenced below (can be pasted into browser): 1. Against Medical Advice ( AMA ) Policy [email or web address]/[email or web address] 2. Against Medical Advice ( AMA ) Attachment A- Evaluation of Capacity [email or web address]://[email or web address]/docview/?[email or web address] 3. Against Medical Advice ( AMA ) Attachment B- Release of Responsibility [email or web address]://[email or web address]/docview/?[email or web address] 4. Patients Without Surrogate Standard Operating Procedure [email or web address]/[email or web address] Eulalia Frank DO 1:24 AM PATIENT IS MEDICALLY CLEARED FOR TRANSFER Encounter Diagnosis ICD-10-CM 1. Suicidal risk R45.89 2. Medication overdose, undetermined intent, initial encounter T50.904A Plan The Patient was TRANSFERRED to: PSYCH Condition at time of disposition: stable SIGNATURE: DO Eulalia Julien DO 09/06/17 0124 ED NOTE Observed: 09/05/2017 Status: COMPLETED Source: [place] 10:45 PM [facility] OTHER [facility] REPOSITORY O ID: [id number] Author: Samantha (Rn) ABIODUN Allen Service: (none) [...] ED NOTE Observed: 09/05/2017 Status: COMPLETED Source: [place] 10:41 PM [facility] OTHER [facility] REPOSITORY HNO ID: [id number] Author: Samantha (Rn) ABIODUN Allen Service: (none) Author Type: Registered Nurse Type: ED Notes Filed: 09/05/2017 11:30 PM Note Text: Suicide precautions taken in ED room 7. Sitter at bedside. 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 5. Breast cancer screening - ICD9: V76.10, ICD10: Z12.31 - DANA SCREENING 6. Visit for screening mammogram - ICD9: V76.12, ICD10: Z12.31 - DANA SCREENING Ryan Castano MD CNOV Observed: 08/31/2017 Status: COMPLETED Source: [place] 3:00 PM [facility] REPOSITORY Office Visit (FAMPBD) JARETTEDGARDO SCHWARZ ([id number]) 1965 F Date Time Provider Department 08/31/17 3:00 PM RYAN CASTANO During your visit today, we recorded the following information about you: Temperature Pulse Blood pressure Weight 98.2 degrees 89/minute 111/71 53.5 kg Height 1.588 m Ryan Castano MD 09/02/2017 8:57 PM Signed Edgardojina Denson is a 51 year old female [...] Care Everywhere if applicable and updated in [facility] as follows: 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 5. Breast cancer screening [...] 3 days.Disp: 90 tabletRfl: 0 DANA SCREENING [[id number]] Order #: [id number] FUTURE Prescriptions as of 08/31/2017 Sig: OXYCODONE-ACETAMINOPHEN [...] (deep venous thrombosis) (HCC) [I82.409] INVALID FOR*02/25/2017 FDC current use of anticoagulant [Z79.01] INVALID FOR*02/25/2017 [...] 09/02/17 OBSOLETE Observed: 08/24/2017 Status: COMPLETED Source: [place] 12:00 AM [facility] REPOSITORY Refill (FAMPBD) EDGARDO DENSON ([id number]) 1965 F Date Time Provider Department 08/24/17 NORM TAVAREZ FAMPBD During your visit today, we recorded the following information about you: Edmund Bishnu Psr 08/24/2017 1:17 PM Signed Patient has been identified by name and date of : Yes Patient phoned to request the following prescription(s) If there are any questions regarding this prescription request, call at home at: [phone] (home) [phone] (cell) RX INSTRUCTIONS: Patient requesting a call [...] with 12 mcg patchEarliest Fill Date: 08/27/17 JOSEFNIA Class: C-II KRYSTAL: No Authorizing Provider: RYAN [...] four times daily. 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 Sufficient meds given to get to upcoming appt Leon Anum Psr 08/26/2017 11:51 AM Signed Patient calls to check on status of refill request. Patient advised prescriptions are available for pickup. Patient stated she would call back to advise the office who will be picking up the prescriptions. Thank you. Leon Rowan Psr Allergies As of Date: 08/24/2017 Noted [...] Itching Date Reviewed: 08/18/2017 Reviewed by: Bronwyn Arellano- Bhavin - Fully Assessed Reason for Visit: Refill [...] with 12 mcg patch Earliest Fill Date: 08/27/17Disp: 2 PatchRfl: 0 promethazine (PHENERGAN) 25 mg [...] INVALID FOR* More... DVT (deep venous thrombosis) ([facility]) [I82.409] INVALID FOR*02/25/2017 FDC current use of anticoagulant [Z79.01] INVALID FOR*02/25/2017 More... 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 Syncope [R55] INVALID FOR* Intentional fentanyl overdose ([facility]) [T40.4X2A] INVALID FOR* Nausea [R11.0] [...] 08/26/17 PROGRESS Observed: 08/18/2017 Status: COMPLETED Source: [place] 2:00 PM [facility] REPOSITORY HNO ID: [id number] Author: Bronwyn Arellano- Kathie Service: (none) Author Type: Nurse Practitioner Type: [...] CHOLECYSTECTOMY [facility] - [facility] Colonoscopy - EGD W/O OR W/BRUSH/WASH [...] children: 1 Occupational History Occupation Employer Comment [employer]* Social History Main Topics Smoking status: [...] equal to 19 in adult - ICD9: [id number], ICD10: Z68.1 OBED Negron- Patient Instructions Thank [...] blood work was not done at the [facility] the results may not appear in My Chart. Please continue to watch diet and increase exercise as tolerated. Please try to maintain ideal body weight. Please call us if you have any questions or any new problems. Office phone number is [phone]. Please make a follow up appointment as directed. If there is any new problem, please feel free to call for an urgent appointment. Return if symptoms worsen or fail to improve. ALLERGIES ALLERGIES DATE TYPE / NAME / CODE REACTION SEVERITY SOURCE CODE 07/12/2018 Drug Penicillins/[id number] Swelling Unknown [place] [facility] Allergy/41 476(RXNORM) Hospital 4548851(SN Repository OMED CT) 07/12/2018 Drug acetaminophen/F0060 Swelling Unknown [place] [facility] Allergy/41 58370(RXNORM) Hospital 3147676(SN Repository OMED CT) 07/12/2018 Drug divalproex Swelling Unknown [place] [facility] Allergy/41 sodium/[id number](R Hospital 3296216(SN XNORM) Repository OMED CT) 07/12/2018 Drug carbamazepine/F0060 Swelling Unknown [place] [facility] Allergy/41 42677(RXNORM) Hospital 1971703(SN Repository OMED CT) 07/12/2018 Drug tetracycline/S24014 Swelling Unknown [place] [facility] Allergy/41 2738(RXNORM) Hospital 8355744(SN Repository OMED CT) 07/12/2018 Drug vancomycin/F9187137 Hives Unknown [place] [facility] Allergy/41 66(RXNORM) Hospital 7018962(SN Repository OMED CT) 07/12/2018 Drug topiramate/V6869475 Other Unknown [place] [facility] Allergy/41 53(RXNORM) Hospital 3112313(SN Repository OMED CT) 06/03/2015 DRUG PHENYTOIN SODIUM GI UPSET [facility] INGREDI/41 EXTENDED [place] 0158514(SN Repository OMED CT) 05/13/2015 Drug FISH CONTAINING UNKNOWN [facility] Class/4195 PRODUCTS [place] [address]003(SNOM Repository ED CT) 05/13/2015 DRUG SHRIMP UNKNOWN [facility] INGREDI/41 [facility] [place] 9925692(SN Repository OMED CT) 05/21/2009 [facility] [place] 7618321(SN Repository OMED CT) 02/03/2008 DRUG HALOPERIDOL [facility] [place] 8176357(SN Repository OMED CT) 05/17/2007 Drug SULFA (SULFONAMIDE GI UPSET [facility] Class/4195 ANTIBIOTICS) [facility] [place] [address](SNOM Repository ED CT) 01/07/2006 DRUG CELLACEFATE [facility]WELLING [facility] [place] 3980808(SN Repository OMED CT) 01/07/2006 DRUG DIVALPROEX SODIUM GI UPSET [facility] INGREDI/41 [place] 7228252(SN Repository OMED CT) 01/07/2006 DRUG PENICILLIN G GI UPSET [facility] INGREDI/41 [facility] [place] 7289677(SN Repository OMED CT) 12/13/2003 Drug PENICILLINS UNKNOWN [facility] Class/4195 [facility] [place] [address]34(SNOM Repository ED CT) 12/13/2003 Drug SULFONYLUREAS UNKNOWN [facility] Class/4195 [facility] [place] [address]13(SNOM Repository ED CT) 12/13/2003 DRUG CARBAMAZEPINE GI UPSET [facility] INGREDI/41 [facility] [place] 9716819(SN Repository OMED CT) 12/13/2003 DRUG TETRACYCLINE HIVES [facility] INGREDI/41 [place] 9256704(SN Repository OMED CT) 12/13/2003 DRUG VALPROIC ACID UNKNOWN [facility] INGREDI/41 [place] 1175256(SN Repository OMED CT) 12/13/2003 DRUG VANCOMYCIN HIVES [facility] INGREDI/ [place] 0465853(SN Repository OMED CT) 12/13/2003 DRUG CARBAMAZEPINE [facility] INGREDI/41 System Repository 5929823(SN OMED CT) 12/13/2003 Drug PENICILLINS [facility] Class/4195 System Repository 42788(SNOM ED CT) 12/13/2003 Drug SULFONYLUREAS [facility] Class/4195 System Repository 06225(SNOM ED CT) 12/13/2003 DRUG TETRACYCLINE [facility] INGREDI/41 System Repository 9750579(SN OMED CT) 12/13/2003 DRUG VALPROIC ACID [facility] INGREDI/41 System Repository 2152853(SN OMED CT) 12/13/2003 Drug VANCOMYCIN [facility] Class/4195 System Repository 51123(SNOM ED CT) DRUG/51518 DIVALPROEX OTHER: SEE C [facility] 1003(SNOME [place] D CT) Repository DRUG PENICILLIN SWELLING [facility] INGREDI/41 [place] 7963667(SN Repository OMED CT) DRUG/62389 SULFAMETHOXAZOLE-TR UNKNOWN [facility] 1003(SNOME IMETHOPRIM [place] D CT) Repository ENCOUNTERS ENCOUNTERS ADMIT/DISCHARGE ACCOUNT NUMBER ADMITTING ENCOUNTER LOCATION SOURCE CLASS 07/23/2018/07/26/20 [id number] AMARI CASTELLANOS Inpatient [place] [address] R Encounter Clinic [place] Repository 07/22/2018/07/23/20 [id number] Ambulatory [place] [address] ing:[facility] EMERGENCYRoo Repository m: WERBed: WER60 07/12/2018/07/12/20 [id number] Emergency [address] ding:ED Repository 07/11/2018/07/11/20 [id number] Emergency [address] ding:ED Repository 07/05/2018/07/05/20 [id number] AMARI CASTELLANOS Ambulatory [place] [address] R [facility] Main [place] Repository 06/29/2018/07/11/20 [id number] AMARI CASTELLANOS Inpatient [place] [address] R [facility] Main [place] Repository 06/29/2018/06/29/20 [id number] Ambulatory [place] [address] Clinic [place] Repository 06/29/2018/06/29/20 [id number] Ambulatory [place] 18 Clinic [place] Repository 06/12/2018/06/13/20 [id number] Ambulatory [place] [facility] [place] Repository 06/02/2018/06/05/20 [id number] Ambulatory [place] [facility] [place] Repository 05/25/2018/05/30/20 [id number] Ambulatory [place] [facility] [place] Repository 05/24/2018/05/24/20 [id number] Ambulatory [place] [facility] [place] Repository 05/24/2018/05/25/20 [id number] Ambulatory [place] [facility] [place] Repository 05/24/2018/05/24/20 [id number] Ambulatory [place] [facility] [place] Repository 05/22/2018/05/23/20 [id number] Ambulatory [place] [facility] [place] Repository 04/28/2018/04/28/20 [id number] Ambulatory [place] [facility] [place] Repository 04/06/2018/04/10/20 [id number] Ambulatory [place] [facility] [place] Repository 03/27/2018/03/28/[id number] Jerzy Inpatient [facility] [address] Encounter [id number]: [facility] Damien [id number]: Repository [id number] 03/27/2018/03/28/20 [id number] Ambulatory [place] 18 Clinic [place] Repository 03/24/2018/03/25/20 [id number] Emergency [address] [place] Repository 02/25/2018 [id number] RYAN CASTANO Ambulatory [facility] [place] Repository 01/24/2018 [id number] Ambulatory [facility] Repository 01/24/2018 [id number] MELANIE Ambulatory [place] VANDANA, CINDY [facility] Repository 01/02/2018/01/04/20 [id number] Ambulatory [address] Repository 12/22/2017/12/29/[id number] Sugey [facility]patient [facility] [address] [facility] Encounter [id number]: Hospitals [id number]: Repository [id number] 12/21/2017/12/23/19 [id number] Ambulatory [address] Repository 12/19/[id number] Repository 12/02/2017/12/20/[id number] Repository 11/23/2017/11/25/19 [id number] Emergency [address] Repository 11/18/2017 [id number] KOBE MANA [facility] Repository 11/12/2017/11/13/[id number] JOSE [address] Repository 11/10/2017/11/11/19 [id number] Unknown [facility] [facility] 56Room: System ED 10 Repository 11/10/2017 [id number] Unknown [facility]ulatory [facility] Repository 11/09/2017/11/11/19 [id number] Unknown Emergency [facility] 56Room: System ED 9Bed: Repository ED 10/31/2017/11/02/19 [id number] Ambulatory [address] Repository 10/11/2017/10/11/19 [id number] Unknown Emergency [facility] 56Room: System ED 1Bed: Repository ED 10/06/2017/10/11/19 [id number] Ambulatory [address] [place] Repository 09/05/2017/09/06/19 [id number] Emergency [address] Repository 08/31/2017/09/05/19 [id number] Ambulatory [address] Main [place] Repository PAYERS PAYERS ENCOUNTER GUARANTOR PAYER SUBSCRIBER SOURCE 07/22/2018 EDGARDO Foss [facility] Insurance:MEDICARETr[facility] Health: System Repository icy Number: [id number] [place] [id number] [address] [place], [place] Date:Plan Name[facility] [place], [place] [address]Tna: (216) [address] [address]Cmi: (HP) [phone], [place] [phone] (HP) [id number]: 07/22/2018 Secondary EDGARDO Foss [facility] Insurance:MEDICARETrinity Health: System Repository icy Number: [id number] [place] Date:Plan Name:[place], [place] [address] [address]Hwd: [phone], [place] [phone] (HP) [id number]: 07/12/2018 EDGARDO Foss Primary EDGARDO [facility]1090 Insurance:MEDICARE MCGILLDOB: [facility] [place] PART A BPolicy [id number] Repository [place], [place] Number: [id number]: [phone] [id number] [phone] (HP) Date:2018-07-12 07/12/2018 Secondary NOT GIVENUNK [facility] Insurance:SELF PAY [facility] INSURANCEPolicy Repository Number: Effective Date:2018-07-12 07/11/2018 EDGARDO Foss Primary EDGARDO [facility]1090 Insurance:MEDICARE MCGILLDOB: [facility] PART A BPolicy [id number] Repository [place], [place] Number: [id number]: [phone] [id number] [phone] (HP) Date:2018-07-11 07/11/2018 Secondary NOT GIVENUNK [facility] Insurance:SELF PAY Hospital INSURANCEPolicy Repository Number: Effective Date:2018-07-11 03/27/2018 [facility]GARDO [facility]: Insurance:MedicarePol MCGILLDOB: Hospitals icy Number: [id number] Repository [place] [id number] [address] [place], [place] Date:3222-20-33Mylv [place], [place] [address]Lwi: (216) Name:Skyler Mehta [id number]: (HP) (HP) 03/27/2018 [facility] Insurance:MedicarePol MCGILLDOB: Hospitals icy Number: [id number] Repository [id number] [address] [place] Date:[id number] [place], [place] Name:Skyler Nguyen [id number]: (HP) 12/22/2017 EDGARDO Foss [facility] EDGARDO [facility]: Insurance:MedicarePol MCGILLDOB: [facility] icy Number: [id number] Repository [place] [id number] [address] [place], [place] Date:7284-84-84Gsuj [place], [place] [address]Jyr: (216) Name:Skyler Mehta [id number]: (HP) (HP) 12/22/2017 [facility] Insurance:MedicarePol MCGILLDOB: Hospitals icy Number: [id number] Repository [id number] [address] [place] Date:5132-16-93Ulqv [place], [place] Name:Skyler Nguyen [id number]: (HP) 12/19/2017 EDGARDO L [facility] EDGARDO [facility]: Insurance:[facility]: Hospitals olicy Number: [id number] Repository EM [id number] [address] [place], [place] Date:5916-70-47Orcb [place], [place] [address]Ijf: (216) Name:[facility] [id number]: (HP) 408 (HP) 11/10/2017 EDGARDO [facility] EDGARDO [facility]: Insurance:MEDICARE MCGILLDOB: System Repository PART APolicy Number: [id number] [place] [id number] [address] [place], Date:2002-04-[address] [place] [place], [place] [address]B[place]: [place] [address]Igr: (HP) (HP) 11/10/2017 Secondary EDGARDO L [facility] Insurance:MEDICARE MCGILLDOB: System Repository PART APolicy Number: [id number] [address] [place] Date:2001-04-[address] [place], [place] [address]Uso: (HP) 11/10/2017 EDGARDO L Primary EDGARDO L [facility]: Insurance:MEDICARE MCGILLDOB: System Repository PART APolicy Number: [id number] [place] [id number] [place] [address], Date:2001-04[address] [place], [place] [address]Ltl: [place] [address]Wgt: (HP) (HP) 11/10/2017 Secondary EDGARDO L [facility] Insurance:MEDICARE MCGILLDOB: System Repository PART APolicy Number: [id number] 0 [place] Date:2001-04-[address] [place] [place], [place] [address]Rpk: (HP) 11/09/2017 EDGARDO L Primary EDGARDO L [facility]: Insurance:MEDICARE MCGILLDOB: System Repository PART APolicy Number: [id number] [place] [id number] [place], Date:2001-04[address] [place] [address]Mgy: [place] [address]Ufc: (HP) (HP) 11/09/2017 Secondary EDGARDO L [facility] Insurance:MEDICARE MCGILLDOB: System Repository PART APolicy Number: [id number] [address] [place] Date:2001-04-15 [facility] [place], [place] [address]Sjk: (HP) 10/11/2017 EDGARDO Foss Primary EDGARDO Foss [facility]: Insurance:MEDICARE MCGILLDOB: System Repository PART APolicy Number: [id number] [place] [id number] [place] [facility] [place], Date:2001-04-15 [facility] [place], [place] [address]Guj: [place] [address]Ill: (HP) (HP) 10/11/2017 Secondary EDGARDO Foss [facility] Insurance:MEDICARE MCGILLDOB: System Repository PART APolicy Number: [id number] 0 [place] Date:2001-04-15 [facility] [place], [place] [address]Mvw: (HP)
== END 2018-07-12 10:18 | disposition home or self-care (01) ==
PROVIDERS: Emergency Provider Emergency Medicine
DX: R11.2 Nausea with vomiting, unspecified (principal); R19.7 Diarrhea, unspecified; Z86.73 Personal history of transient ischemic attack (TIA), and cerebral infarction without residual deficits; Z87.19 Personal history of other diseases of the digestive system; Z86.711 Personal history of pulmonary embolism; Z86.718 Personal history of other venous thrombosis and embolism; Z86.14 Personal history of Methicillin resistant Staphylococcus aureus infection; Z86.74 Personal history of sudden cardiac arrest; Z72.0 Tobacco use
CPT/HCPCS: 99283